=== PATIENT | female | born 1955 | race Caucasian/White ===

== ENCOUNTER → 2017-12-25 08:15 | Outpatient (CLI) | payer MEDICARE, SELFPAY ==
[2017-12-25 12:20] LABS: Absolute Lymphocyte Count 1.13 X10^3/ul (0.83-4.51); Absolute Neutrophil Count 2.7 X10^3/uL (2.0-7.7); Basophil# 0.01 X10^3/uL; Basophil% 0.2 % (0-1); Eosinophil# 0.28 X10^3/uL; Eosinophils% 6.1 % (0-5); Hematocrit 37.2 % (37-47); Hemoglobin 11.5 g/dl (12.0-15.0); Lymphocyte # 1.13 X10^3/ul (4.0); Lymphocyte % 24.6 % (19-41); Mean Corp Hgb Conc 30.9 g/gl (32-36); Mean Corpuscular Hgb 26.9 pg (27.0-32.0); Mean Corpuscular Volume 86.9 fL (81-99); Mean Platelet Vol. 9.5 fl (6.2-12.0); Monocyte# 0.46 X10^3/uL; Neutrophil % 58.9 % (47-70); Platelet Count 293 K/mm3 (150-450); RBC Distribution Width CV 16.2 % (11.6-14.6); RBC Distribution Width SD 51.4 fl (35.1-43.9); Red Blood Count 4.28 M/mm3 (4.2-5.4); White Blood Count 4.6 K/mm3 (4.4-11.0)
[2017-12-25 12:22] LABS: POSITIVE COUNT NO; POSITIVE DIFFERENTIAL NO; POSITIVE MORPHOLOGY NO
[2017-12-25 12:42] LABS: Hemoglobin A1c 6.2 % (4.2-6.3)
[2017-12-25 12:46] LABS: Anion Gap 7 (5-15); BUN 20 mg/dL (7-18); BUN/Creat Ratio 24.1 RATIO (10-20); Calcium,Total 9.2 mg/dL (8.5-10.1); Chloride 100 mmol/L (98-107); Creatinine, Serum 0.83 mg/dL (0.55-1.02); EST Glomerular Filtration Rate 74 mL/min (>60); Est Glom Filt Rate - Afr Amer 89 mL/min (>60); Glucose 99 mg/dL (74-106); Sodium Level 136 mmol/L (136-145); Thyroid Stim Hormone (TSH) 2.45 uIU/mL (0.358-3.74)
== END ==
PROVIDERS: Family Provider Family Medicine; PCP Family Medicine; Visit Provider Family Medicine
DX: I10 Essential (primary) hypertension (principal); R73.01 Impaired fasting glucose; F41.9 Anxiety disorder, unspecified
CPT/HCPCS: 36415; 80048; 83036; 84443; 85025

== ENCOUNTER → 2018-03-19 08:54 | Outpatient (CLI) | payer MEDICARE, SELFPAY ==
--- NOTE | 2018-03-19 08:58 | RAD_ITS ---
STUDY: X-RAY - RIGHT FOOT CLINICAL: Female, 62 years old. Pain across tarsal bones while doing physical therapy. TECHNIQUE: 3 view(s) of the foot. COMPARISON: None. FINDINGS: Normal talus, calcaneus, and tarsal bones. Normal visualized subtalar, talonavicular, calcaneocuboid, and tarsotarsal articulations. There are degenerative arthroses of the first through third tarsometatarsal articulations, with anterior periarticular osteophytes on the lateral view, likely at the first tarsometatarsal joint. There is chronic lateral erosive change in the heads of the first and second metatarsals. There is old healed fracture deformity at the neck of the third metatarsal. Normal fourth and fifth metatarsals. There is degenerative arthrosis of the first metatarsophalangeal joint with a 55 degree hallux valgus deformity. There are periarticular degenerative ossicles or spurring of the tibial and fibular sesamoid bones. Normal interphalangeal joint of the great toe. Normal phalanges of the great toe. There is chronic anterior dislocation and slight lateral subluxation of the second metatarsal phalangeal joint. Normal third fifth metatarsophalangeal joints. Mild varus deviation of the third through fifth toes. Otherwise, normal interphalangeal joints and phalanges of the lesser toes. There is mild soft tissue swelling at the ball of the foot. There is no demonstrated acute fracture. RAD/Foot min 3 Views IMPRESSION: 1. 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 There is an anterior dislocation at the second metatarsophalangeal joint, likely chronic, as well as a significant hallux valgus deformity. 2. Mild soft tissue swelling at the ball of foot. No acute osseous destructive lesion or fracture. Electronically Signed: Easton Hall MD at 9:31 EDT , Service support ,
== END ==
PROVIDERS: Family Provider Family Medicine; PCP Family Medicine; Visit Provider Family Medicine
DX: M79.671 Pain in right foot (principal)
CPT/HCPCS: 73630

== ENCOUNTER → 2018-03-19 09:07 | Outpatient (CLI) | payer MEDICARE, SELFPAY | PROVIDERS: Family Provider Family Medicine; PCP Family Medicine; Visit Provider Family Medicine | DX: M79.671 Pain in right foot (principal); R30.0 Dysuria | CPT/HCPCS: 73630; 87086; 87088 ==

== ENCOUNTER → 2018-03-28 08:55 | Outpatient (CLI) | payer MEDICARE, SELFPAY ==
--- NOTE | 2018-03-28 08:58 | BI_ITS ---
MAMMOGRAPHY - BILATERAL DIAGNOSTIC REASON FOR EXAM: Female, 62 years old. Left breast lump. PERTINENT HISTORY: Personal history of breast cancer. History of prior left lumpectomy with radiation treatment and maxillary node dissection. TECHNIQUE: Digital bilateral breast dora (3D mammographic acquisition) in the CC and MLO projections. 2-D mediolateral oblique (MLO) and craniocaudad (CC) views of both breasts were obtained. CAD: Full Field Digital Mammography with Computer Added Detection was performed. COMPARISON: Comparison is made with prior examination dated March 27, 2017 and August 04, 2016. FINDINGS: Breast Composition: There are scattered areas of fibroglandular density. There are no dominant masses or suspicious calcifications. Focal architectural distortion is seen in the deep medial inferior aspect of the left breast corresponding to the palpable abnormality. Correlation with ultrasound is recommended. Status post left lumpectomy. No other significant abnormalities are identified. BI/DIAG MAMM W/CAD, BILAT IMPRESSION: Focal irregular architecture distortion in the deep inferior medial portion of the left breast corresponding to the palpable abnormality. Correlation with ultrasound is recommended. ASSESSMENT CATEGORY: BIRADS Category 0: Incomplete. Need additional imaging evaluation. A letter regarding these results will be sent to the patient by the facility within 30 days. Approximately 10% of breast cancers are not detected by mammography. A normal mammogram should not delay biopsy of a clinically suspicious abnormality. Electronically Signed: Rancho Lyles MD at 13:00 EDT Tel [phone], Service support ,
--- NOTE | 2018-03-28 08:59 | US_ITS ---
STUDY: ULTRASOUND BREAST - LEFT REASON FOR EXAM: Female, 62 years old. Pain in the left breast. TECHNIQUE: Axial and longitudinal images of the LEFT breast were performed with a high resolution ultrasound transducer. COMPARISON: Comparison is made with prior mammogram done earlier today and prior ultrasound of the left breast dated March 27, 2017. FINDINGS: LEFT Breast: The inferior medial aspect of the left breast was examined by ultrasound. There is a 6 mm x 15 mm x 5 mm well-defined slightly echogenic nodule at the 8:00 position in the breast at 10 cm from the nipple. This most likely represents postoperative fatty change. The previously seen hypoechoic nodule on prior ultrasound is not seen at this time. US/Breast Limited Unilateral IMPRESSION: 6 mm x 30 mm x 5 mm echogenic nodule at the 8:00 position breast at 10 cm from the nipple. This most likely represents post operative change. A repeat sonogram in 4 months is recommended. ASSESSMENT CATEGORY: BIRADS Category 3: Probably Benign - Short-Interval Follow-up Suggested. A letter regarding these results will be sent to the patient by the facility within 30 days. Electronically Signed: Rancho Lyles MD at 13:46 EDT Tel [phone], Service support ,
== END ==
PROVIDERS: Family Provider Family Medicine; PCP Family Medicine; Visit Provider Nurse Practitioner
DX: C50.412 Malignant neoplasm of upper-outer quadrant of left female breast (principal); Z17.0 Estrogen receptor positive status [ER+]; Z12.31 Encounter for screening mammogram for malignant neoplasm of breast
CPT/HCPCS: 76642; 77062; 77066; G0279

== ENCOUNTER → 2018-04-02 11:39 | Outpatient (CLI) | payer MEDICARE, SELFPAY ==
--- NOTE | 2018-04-02 | MASS_PTH ---
PATIENT: CR YANG LOC: [facility] #:[id number] AGE/SX: 69/F ROOM: RE04/02/[address]: Dr. Jarod Chavez MD : 1955 BED: DIS: SPEC #: [id number] RECD: 04/02/18 11:29 STATUS: ANGEL TESSA #: [id number] ANGELA: 04/02/18 00:[address]: Jarod Chavez DEPT: SURGICAL PATHOLOGY RECD BY: Jeremy Dixon ENTERED: 04/02/18 12:44 SP TYPE: Mass OTHR DR: Dr. Brandt Yang MD Tissues: Left breast, NOS Procedures: Surgery Specimen Level IV HEADER OPERATION: Excisional left breast biopsy PRE-OP DIAGNOSIS: Left breast mass TISSUE SUBMITTED: Left breast mass ISCHMEIC TIME: 3 seconds FIXATION TIME: 7.5 hours MICROSCOPIC DIAGNOSIS Left breast mass, excisional biopsy: A piece of adipose tissue with fat necrosis and fibrosis. Negative for malignancy. Breast tissue is not identified in the submitted specimen. GIO:rissa 04/03/18 COMMENT Please make reference to previous specimen ([id number]) left breast, lumpectomy with diagnosis of invasive ductal carcinoma. Correlation with clinical, radiologic findings and appropriate follow up are necessary. MICROSCOPIC DESCRIPTION Slides are reviewed. GROSS DESCRIPTION Received in fixative is one container labeled with the patient's name and designated left breast biopsy. The specimen consists of a piece of spencer-yellow fibroadipose tissue measuring 1.7 x 1.2 x 0.8 cm. The specimen is inked, serially sectioned and submitted entirely in one cassette. / GIO:rissa 04/02/18 TC:5 CPT: 25252
== END ==
PROVIDERS: Family Provider Family Medicine; PCP Family Medicine; Visit Provider Surgery
DX: N64.1 Fat necrosis of breast (principal); N60.32 Fibrosclerosis of left breast
CPT/HCPCS: 88305

== ENCOUNTER 2018-05-07 08:46 | Day surgery (SDC) | payer MEDICARE, SELFPAY ==
[2018-05-07 09:06] VITALS: BP 156/88; PULSE 73; RESP 16; TEMP 36.4; O2SAT 95; BMI 40.4
--- NOTE | 2018-05-07 10:55 | BRBX_PTH ---
PATIENT: CR YANG LOC: [facility] [place] U#:[id number] AGE/SX: 62/F ROOM: RE05/07/[address]: Dr. Jarod Chavez MD : 1955 BED: DIS: 05/07/2018 SPEC #: [id number] RECD: 05/08/18 07:16 STATUS: ANGEL TESSA #: [id number] ANGELA: 05/07/18 10:[address]: Jarod Chavez DEPT: SURGICAL PATHOLOGY RECD BY: John Rocha ENTERED: 05/08/18 11:02 SP TYPE: BREAST BX OTHR DR: Dr. Brandt Yang MD Tissues: Left breast, NOS Procedures: Surgery Specimen Level IV HEADER OPERATION: Left breast mass excisional biopsy PRE-OP DIAGNOSIS: Mass of lower inner quadrant of left breast TISSUE SUBMITTED: Left breast excisional biopsy and skin-short suture ? superior: long suture - lateral MICROSCOPIC DIAGNOSIS Left breast mass, lower inner quadrant, excisional biopsy: Adipose tissue with extensive fat necrosis. Skin with dermal fibrosis, fat necrosis and foreign body giant cell reaction consistent with previous biopsy site. Negative for malignancy. SJ:medardo 05/10/18 COMMENT Please make reference to previous specimen [id number] left breast mass, excisional biopsy with diagnosis of piece of adipose tissue with fat necrosis and fibrosis, negative for malignancy. Please make reference to previous specimen [id number] left breast, lumpectomy, diagnosis of invasive ductal carcinoma. This case was discussed with Dr. Chavez on 05/10/2018. MICROSCOPIC DESCRIPTION Slides are reviewed. GROSS DESCRIPTION Received in fixative is one container labeled with the patient's name and designated left breast excision biopsy, skin short suture superior, long suture lateral. The specimen consists of a piece of spencer-yellow fibroadipose tissue measuring 3.5 x 3 x 1.3 cm. A piece of skin is also noted separately measuring 2 x 0.4 cm and up to 0.5 cm in thickness. The skin piece is longitudinally bisected. The specimen is inked as follows: superior margin? blue, inferior margin? green, anterior margin? yellow, posterior margin ? black, medial margin ? red, lateral margin ? orange. The specimen is serially section and reveals focal spencer-yellowish solid area. No obvious mass lesion is identified. The entire specimen is submitted in 6 cassettes as follows: 1 ? skin piece bisected, 2- perpendicular medial and lateral margins, 3-6 - rest of the specimen. Section will be submitted after infusion cycle. GIO:medardo 05/07/18 TC:5 CPT:30805
[2018-05-07] MEDS: Cefazolin 2 GM in 0.9% Normal Saline 100 ML IV (11:10)
--- NOTE | 2018-05-07 11:28 | PCM.OPRPT ---
Problem List (1) Mass of lower inner quadrant of left breast Status: Acute Report of Operation Date of Procedure: 05/07/18 Pre-Operative Diagnosis: Palpable mass in the left breast lower inner quadrant Post-Operative Diagnosis: Same Surgery/Procedure Performed:: Left breast excisional biopsy of mass Specimen's removed: Left breast mass and overlying previous scar tissue. Description of Procedure: The patient's left breast was prepped and draped in the usual sterile fashion and MAC anesthesia was induced. Next Marcaine was injected around the mass and former incision. Her previous incision site was excised with an elliptical incision. Next flaps were created superiorly and the palpable mass was located and sharply dissected free with surrounding tissue. This was marked with a short suture superiorly and a long suture laterally. Next the cavity was irrigated and hemostasis was obtained with electrocautery. The skin was then closed with interrupted 3-0 Vicryl sutures as well as Dermabond. The patient tolerated the procedure well and was brought to PACU in stable condition.
--- NOTE | 2018-05-07 11:31 | PCM.DC.BS ---
Discharge Diet: No Restrictions Discharge Activity: May Not Drive - for 2-3 days or while taking narcotic pain meds. May shower in (days): 1 Lifting Restrictions: 10 pounds for 1 week. Call your doctor if your incision/area has: Continuous Slow Oozing, Sudden Increased Bleeding Call your doctor if you observe: Fever of 101 or Higher Suture Line Care: Avoid Pulling/Pushing, Avoid Pinching/Bending Cleanse incision/area with: Soap & Water Allergies/Adverse Reactions: Allergies codeine Adverse Reaction (Verified 05/01/18 14:09) N/V AND MAKES HER FEEL REALLY SICK hydrocodone [From Vicodin] Adverse Reaction (Verified 05/01/18 14:09) N/V AND MAKES HER FEEL REALLY SICK Medications to take at Discharge Cyclobenzaprine [Flexeril] 10 mg PO TID PRN PRN 05/18/17 Lisinopril/Hydrochlorothiazide [Zestoretic 10/12.5 Tablet] 1 tab PO DAILY 05/22/17 Anastrozole [Arimidex] 1 mg PO DAILY 07/20/17 Aspirin [Aspirin, Baby] 81 mg PO DAILY@0800 07/20/17 Cholecalciferol (Vitamin D3) [Vitamin D3] 5,000 unit PO DAILY 07/20/17 Multivit-Min/FA/Lycopen/Lutein [Centrum Silver Tablet] 1 ea PO DAILY 07/20/17 Omeprazole [Omeprazole] 20 mg PO PRN PRN 05/01/18 Primary Care Physician: Brandt Yang MD [Primary Care Provider] - Please Follow Up With: Jarod Chavez MD When: Please call to schedule 2 week follow up appointment. [phone]
[2018-05-07 11:33] VITALS: BP 115/62; BP 156/88; PULSE 87; RESP 16; TEMP 36.9; O2SAT 100
[2018-05-07 11:38] VITALS: BP 135/70; BP 156/88; PULSE 81; RESP 18; O2SAT 93
[2018-05-07 11:43] VITALS: BP 122/75; BP 156/88; PULSE 83; RESP 18; O2SAT 93
[2018-05-07 11:48] VITALS: BP 147/82; BP 156/88; PULSE 83; RESP 16; TEMP 36.9; O2SAT 93
[2018-05-07 12:26] VITALS: BP 156/88
== END 2018-05-07 12:26 | disposition home or self-care (01) ==
LOC: SDC 08:46 → AC 08:47
PROVIDERS: Family Provider Family Medicine; PCP Family Medicine; Visit Provider Surgery
PROC: (CPT 19120; principal; 2018-05-07 10:40)
DX: N60.32 Fibrosclerosis of left breast (principal); N64.1 Fat necrosis of breast; C50.412 Malignant neoplasm of upper-outer quadrant of left female breast; I10 Essential (primary) hypertension; K21.9 Gastro-esophageal reflux disease without esophagitis; Z79.82 Long term (current) use of aspirin; Z79.899 Other long term (current) drug therapy
CPT/HCPCS: 19120; 88305; J7120; J2405

== ENCOUNTER → 2018-07-18 09:30 | Outpatient (CLI) | payer MEDICARE, SELFPAY | PROVIDERS: Family Provider Family Medicine; PCP Family Medicine; Visit Provider Surgery | DX: C50.412 Malignant neoplasm of upper-outer quadrant of left female breast (principal); Z17.0 Estrogen receptor positive status [ER+]; N63.0 Unspecified lump in unspecified breast | CPT/HCPCS: 76642 ==

== ENCOUNTER → 2019-03-29 | Outpatient (CLI) | payer MEDICARE, SELFPAY ==
--- NOTE | 2019-03-29 09:46 | BI_ITS ---
MAMMOGRAPHY - BILATERAL SCREENING REASON FOR EXAM: Female, 63 years old. Routine annual screening examination. PERTINENT HISTORY: Personal history of breast cancer. Prior left lumpectomy. TECHNIQUE: Digital bilateral breast dora (3D mammographic acquisition) in the CC and MLO projections. 2-D mediolateral oblique (MLO) and craniocaudad (CC) views of both breasts were obtained. CAD: Full Field Digital Mammography with Computer Added Detection was performed. COMPARISON: Comparison is made with prior study dated March 28, 2018 and March 27, 2017. FINDINGS: Breast Composition: There are scattered areas of fibroglandular density. There are no dominant masses or suspicious calcifications. Stable architectural distortion in the upper outer aspect of the left breast. Surgical clips are seen in the left axillary region. Stable benign-appearing left axillary lymph node. No other significant abnormalities are identified. There has been no significant change since the prior study. BI/SCREENING MAMM (CAD), BILAT IMPRESSION: Stable bilateral screening mammogram. Yearly follow-up mammogram recommended. (A) ASSESSMENT CATEGORY: BIRADS Category 2: Benign. A letter regarding these results will be sent to the patient by the facility within 30 days. Approximately 10% of breast cancers are not detected by mammography. A normal mammogram should not delay biopsy of a clinically suspicious abnormality. [id number] Electronically Signed: Rancho Lyles, at 13:24 EDT , Service support ,
== END | disposition home or self-care (01) ==
LOC: OPBI 09:44
PROVIDERS: Family Provider Family Medicine; PCP Family Medicine; Referring Provider Nurse Practitioner; Visit Provider Nurse Practitioner
DX: Z12.31 Encounter for screening mammogram for malignant neoplasm of breast (principal); C77.3 Secondary and unspecified malignant neoplasm of axilla and upper limb lymph nodes
CPT/HCPCS: 77063; 77067

== ENCOUNTER → 2019-04-09 | Outpatient (CLI) | payer MEDICARE, SELFPAY ==
--- NOTE | 2019-04-09 13:51 | BD_ITS ---
STUDY: DUAL ENERGY X-RAY ABSORPTIOMETRY / DXA REASON FOR EXAM: Female, 63 years old. The patient is postmenopausal. Loss of height. TECHNIQUE: Bone Mineral Density (BMD) measurements of both forearms were obtained. The patient is status post bilateral hip replacement and lumbar surgeries. COMPARISON: None. FINDINGS: Right Forearm: g/cm2 (0.932) / T-score (0.5) / Z-score (1.9) Left Forearm: g/cm2 (0.934) / T-score (0.5) / Z-score (1.9) BD/Dexa Bone Density/Append Skel IMPRESSION: The patient is considered normal as outlined below according to [employer] Organization (WHO) criteria with a low fracture risk. Reference Information: The T-score is the number of standard deviations above or below the standard which is normal for young adults at their peak bone mineral density. The World Health Organization (WHO) interprets the T-scores as follows: Above -1 Normal bone density Between -1 and -2.5 Osteopenia Equal to / or below -2.5 Osteoporosis As a practical clinical guideline, osteopenia may be graded as follows: Mild -1 through -1.5 Moderate -1.6 through -2.0 Severe -2.1 through -2.4 The Z-score is the number of standard deviations above or below age-matched controls. A Z-score of less than -1.5 would be considered abnormal. References: 1. NIH Osteoporosis and Related Bone Diseases http://www.osteo.org 2. International Society for Clinical Densitometry http://www.iscd.org 3. National Osteoporosis Foundation http://www.nof.org Electronically Signed: Rancho Lyles, at 15:50 EDT , Service support ,
== END | disposition home or self-care (01) ==
LOC: OPBD 13:20
PROVIDERS: Family Provider Family Medicine; PCP Family Medicine; Referring Provider Family Medicine; Visit Provider Family Medicine
DX: Z78.0 Asymptomatic menopausal state (principal)
CPT/HCPCS: 77080; 77081

== ENCOUNTER 2019-05-22 06:30 | Day surgery (SDC) | payer MEDICARE, SELFPAY ==
[2019-05-22 06:46] VITALS: BP 145/83; PULSE 85; RESP 18; TEMP 36.4; O2SAT 96; BMI 41.7
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
[2019-05-22 08:21] VITALS: BP 111/65; BP 145/83; PULSE 76; RESP 18; TEMP 36.9; O2SAT 100
[2019-05-22 08:25] VITALS: BP 123/69; BP 145/83; PULSE 76; RESP 18; O2SAT 100
[2019-05-22 08:30] VITALS: BP 123/73; BP 145/83; PULSE 78; RESP 18; O2SAT 100
[2019-05-22 08:36] VITALS: BP 112/66; BP 145/83; PULSE 72; RESP 18; TEMP 36.8; O2SAT 99
--- NOTE | 2019-05-22 08:39 | OP.ENDO_ITS ---
05/22/2019 Brandt Yang Re : Colonoscopy procedure for Remedios Lee Dear Celia This procedure was performed on Wednesday, May 22, 2019. My impressions and recommendations are as follows: Impressions : - Hemorrhoids found on perianal exam. - External and internal hemorrhoids. - Diverticulosis in the sigmoid colon and in the descending colon. - The examination was otherwise normal. - No specimens collected. Recommendations : - Discharge patient to home. - Continue present medications. - Repeat colonoscopy in 10 years for screening purposes. My findings are described in the full procedure note, which is enclosed. If I can be of further assistance, please feel free to contact me at Doctor phone number(s): , Work: . Sincerely, MD Eliana Adams MD 05/22/2019 8:39:42 AM This report has been signed electronically.
[2019-05-22 08:45] VITALS: BP 145/83
== END 2019-05-22 08:54 | disposition home or self-care (01) ==
LOC: EN 06:30 → AC 06:33
PROVIDERS: Family Provider Family Medicine; PCP Family Medicine; Referring Provider Family Medicine; Visit Provider Surgery
PROC: 0DJD8ZZ Inspection of Lower Intestinal Tract, Via Natural or Artificial Opening Endoscopic (ICD-10-PCS; CPT 45378; principal; 2019-05-22 07:55)
DX: Z12.11 Encounter for screening for malignant neoplasm of colon (principal); Z86.010 Personal history of colon polyps; K64.1 Second degree hemorrhoids; K64.4 Residual hemorrhoidal skin tags; K57.30 Diverticulosis of large intestine without perforation or abscess without bleeding; I10 Essential (primary) hypertension; K21.9 Gastro-esophageal reflux disease without esophagitis; M19.90 Unspecified osteoarthritis, unspecified site; F32.9 Major depressive disorder, single episode, unspecified; C50.412 Malignant neoplasm of upper-outer quadrant of left female breast; Z78.0 Asymptomatic menopausal state; Z79.899 Other long term (current) drug therapy
CPT/HCPCS: G0105; J7120; J2405

== ENCOUNTER → 2019-07-17 | Outpatient (CLI) | payer MEDICARE, SELFPAY ==
[2019-07-17 12:37] LABS: Absolute Lymphocyte Count 0.97 X10^3/uL (0.83-4.51); Absolute Neutrophil Count 2.4 X10^3/uL (2.0-7.7); Basophil# 0.02 X10^3/uL; Basophil% 0.5 % (0-1); Eosinophil# 0.28 X10^3/uL; Eosinophils% 7.1 % (0-5); Hematocrit 35.5 % (37-47); Hemoglobin 10.9 g/dL (12.0-15.0); Lymphocyte # 0.97 X10^3/ul (4.0); Lymphocyte % 24.4 % (19-41); Mean Corp Hgb Conc 30.7 g/dL (32-36); Mean Corpuscular Hgb 26.8 pg (27.0-32.0); Mean Corpuscular Volume 87.4 fL (81-99); Mean Platelet Vol. 9.9 fl (6.2-12.0); Monocyte# 0.33 X10^3/uL; Monocyte% 8.3 % (0-10); NRBC Flagged by Analyzer 0 % (0-5); Neutrophil # 2.36 X10^3/uL (2.7-7.7); Neutrophil % 59.4 % (47-70); Platelet Count 227 K/mm3 (150-450); RBC Distribution Width CV 15.5 % (11.6-14.6); RBC Distribution Width SD 49.3 fl (35.1-43.9); Red Blood Count 4.06 M/mm3 (4.2-5.4)
[2019-07-17 13:23] LABS: ALB/GLOB Ratio 0.8 RATIO (0.9-2.4); AST(SGOT) 18 U/L (15-37); Alanine Aminotransfer ALT/SGPT 15 U/L (13-56); Albumin, Serum 3.5 g/dL (3.2-5.0); Alkaline Phosphatase 87 U/L (45-117); Anion Gap 4 (5-15); BUN 14 mg/dL (7-18); BUN/Creat Ratio 16.7 RATIO (10-20); Calcium,Total 8.9 mg/dL (8.5-10.1); Chloride 104 mmol/L (98-107); Creatinine, Serum 0.84 mg/dL (0.55-1.02); EST Glomerular Filtration Rate 72 mL/min (>60); Est Glom Filt Rate - Afr Amer 87 mL/min (>60); Globulin 4.3 g/dL (2.2-4.2); Glucose 92 mg/dL (74-106); Potassium 3.8 mmol/L (3.5-5.1); Protein, Total 7.8 g/dL (6.4-8.2); Sodium Level 139 mmol/L (136-145); T4 Free Direct 1.09 ng/dL (0.76-1.46); Thyroid Stim Hormone (TSH) 1.14 uIU/mL (0.358-3.74)
[2019-07-18 09:39] LABS: Ferritin 21 ng/mL (8-252); Iron 47 ug/dL (50-170)
== END | disposition home or self-care (01) ==
PROVIDERS: Family Provider Family Medicine; PCP Family Medicine; Visit Provider Family Medicine
DX: D64.9 Anemia, unspecified (principal); I10 Essential (primary) hypertension; R73.01 Impaired fasting glucose; F41.9 Anxiety disorder, unspecified
CPT/HCPCS: 36415; 80053; 82728; 83540; 84439; 84443; 85025

== ENCOUNTER → 2019-07-19 13:37 | Outpatient (CLI) | payer MEDICARE, SELFPAY ==
[2019-07-19 13:45] LABS: Bacteria 0 SEEN /hpf (None Seen); Mucous, Urine 0 SEEN /hpf (<or=2+); Red Blood Cells-Urine 0 SEEN /hpf (0-5)
[2019-07-19 15:44] LABS: Color, Urine Yellow (Yellow); Glucose, Dipstick Normal (Normal); Ketone-Dipstick Negative (Negative); Leukocyte Esterase-Dipstick 25 /ul (Negative); Nitrite-Dipstick Negative (Negative); Occult Blood-Urine Negative /ul (Negative); Protein-Dipstick Negative (Negative); Urine Bilirubin Dipstick Negative (Negative); Urine Clarity Clear (Clear); Urine Urobilinogen Normal (Normal); Urine pH 6.5 (5.0 - 8.0)
[2019-07-19 16:03] LABS: Squamous Epithelial Cells - UA 0-5 SEEN /hpf (5-10); White Blood Cells 0-5 SEEN /hpf (0-5)
== END ==
PROVIDERS: Family Provider Family Medicine; PCP Family Medicine; Visit Provider Family Medicine
DX: D50.9 Iron deficiency anemia, unspecified (principal)
CPT/HCPCS: 81001

== ENCOUNTER 2019-07-29 09:37 | Day surgery (SDC) | payer MEDICARE, OTHER, SELFPAY ==
[2019-07-23 13:23] VITALS: BMI 38.6
--- NOTE | 2019-07-29 10:22 | PCM.HP.BLA ---
History and Physical Date of Admission: 07/29/19 Date of Service: 07/23/19 MR#: [id number] Acct: [id number] Name: CR YANG Rep #: [id number] : 1955 Provider: Eliana Hancock MD Age/Sex: 63/F Location: [facility] Status: Signed Intake Vital Signs 07/23/19 Height 5 ft 4 in 07/23/19 Weight: 225 lb 07/23/19 Body Mass Index (BMI) 38.6 07/23/19 Blood Pressure 145/81 H 07/23/19 Blood Pressure Location Rt brachial 07/23/19 Blood Pressure Position Sitting 07/23/19 Respiratory Rate 16 07/23/19 Pulse Rate 65 07/23/19 Pulse Source Monitor 07/23/19 Temperature 98.2 F 07/23/19 Temperature Source Oral 07/23/19 Pulse Ox 96 07/23/19 Oxygen Delivery Method room air 07/23/19 Body Mass Index (BMI) 41.7 Intake Visit Reasons: EGD DX- 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 Is patient in pain?: No Allergies codeine Adverse Reaction (Verified 07/23/19 13:24) N/V AND MAKES HER FEEL REALLY SICK hydrocodone [From Vicodin] Adverse Reaction (Verified 07/23/19 13:24) N/V AND MAKES HER FEEL REALLY SICK Medications cycloBENZAPRine HCl [Flexeril] 10 mg PO TID PRN PRN 05/18/17 [History Confirmed 07/23/19] Lisinopril/Hydrochlorothiazide [Zestoretic 08/24.5 Tablet] 1 tab PO DAILY 05/22/17 [History Confirmed 07/23/19] Anastrozole [Arimidex] 1 mg PO DAILY 07/20/17 [History Confirmed 07/23/19] Multivit-Min/FA/Lycopen/Lutein [Centrum Silver Tablet] 1 ea PO DAILY 07/20/17 [History Confirmed 07/23/19] Omeprazole 20 mg PO PRN PRN 05/01/18 [History Confirmed 07/23/19] ferrous sulfate 325 mg (65 mg iron) tablet 325 mg PO DAILY 07/23/19 [History Confirmed 07/23/19] [facility] Medical History (Updated 07/23/19 @ 13:52 by Eliana Hancock MD) Scleroderma (Acute) Spinal stenosis (Acute) Osteoarthritis (Acute) GERD (gastroesophageal reflux disease) (Acute) Anxiety (Acute) Anemia (Acute) Back pain (Acute) HTN (hypertension) (Chronic) Breast cancer of upper-outer quadrant of left female breast (Acute) Surgical History (Updated 07/23/19 @ 13:21 by Karen Booker) History of hip replacement (Acute) Hx of hysterectomy (Acute) History of carpal tunnel surgery (Acute) Hx of surgical amputation of finger (Acute) Hx of tonsillectomy (Acute) Hx of colonoscopy (Acute) History of breast lump/mass excision (Acute) Previous back surgery (Acute) S/P lumpectomy, left breast (Acute) Family History (Updated 07/23/19 @ 13:22 by Karen Booker) Mother Diabetes Kidney disease Father CVA (cerebral vascular accident) Hypertension Sister Thyroid disorder Social History (Updated 07/23/19 @ 14:04 by Eliana Hancock MD) Smoking Status: Never smoker second hand exposure: No alcohol intake: never substance use type: does not use caffeine: Yes HPI HPI HPI: CR YANG, is a 63 F who presents to the office today for HPI HPI Surgical H&P: Yes HPI: CR YANG, is a 63 F who presents to the office today for EGD due to anemia. Patient recently had colonoscopy done May 2019 which was negative. In 2017 she did have a tubulovillous adenoma and tubular adenoma removed. Prior to that her colonoscopy was 10 years before that. Patient has been on omeprazole for years 20 mg p.o. daily however she only takes it when she has a problem she is concerned about her bone density even of her last DEXA scan was okay. Patient states she has reflux symptoms every other day. Patient states she has bowel movement daily but denies any blood. Recently her stools have been black once she started taking the iron. Patient's hemoglobin November 2016 was 13 however mid 2016 she dropped to 11.1 in 2018 she is 11.5 currently she is 10.9. Exam Const General: cooperative, comfortable, no acute distress GI Inspection: non-distended Palpation: soft, nontender Assessment & Plan Problems 1. GERD (gastroesophageal reflux disease) K21.9 2. Anemia D64.9 3. Tubulovillous adenoma of colon D12.6 removed in 2017, 2019 neg Plan We will have patient repeat her colonoscopy in 4 years not 10 years due to history of tubulovillous adenoma in 2017. Did discuss with patient. I have discussed the above with the patient. I have offered the patient EGD for evaluation. I have explained the risks/benefits of the procedure and described the procedure. I have discussed the risks with the patient, including but not limited to: infection, bleeding, perforation of the GI tract requiring emergency surgery, inability to complete the procedure, injury to any internal organs, complications of anesthesia, etc. - the patient understands and agrees to proceed. I have answered all the patient's questions to the patient's satisfaction and the patient has no further questions. Eliana Hancock M.D. Pager: [phone] [facility] [address] [place] [address], [address] [place] [address] Office: [phone] Plan Detail Follow Up We will schedule EGD Coding Level of Care Code Off vis,est,level 3 Diagnoses GERD (gastroesophageal reflux disease) K21.9 Anemia D64.9 Tubulovillous adenoma of colon D12.6 07/23/19 1404 <Electronically signed by Eliana Hancock MD> Date Eliana Hancock MD I have re-examined the patient. There are no clinical changes since date of exam.
[2019-07-29 10:33] VITALS: BP 152/70; PULSE 62; RESP 16; TEMP 37.4; O2SAT 98; BMI 39.2
[2019-07-29] MEDS: Lactated Ringers 1,000 ML 100 ML IV (10:51)
--- NOTE | 2019-07-29 11:00 | EGD_PTH ---
PATIENT: CR YANG LOC: EN U#:[id number] AGE/SX: 63/F ROOM: RE07/29/[address]: Dr. Eliana Hancock MD : 1955 BED: DIS: 07/29/2019 SPEC #: [id number] RECD: 07/29/19 11:35 STATUS: ANGEL TESSA #: [id number] ANGELA: 07/29/19 11:[address]: Eliana Hancock DEPT: SURGICAL PATHOLOGY RECD BY: John Rocha ENTERED: 07/29/19 12:06 SP TYPE: EGD BIOPSY OT DR: Dr. Brandt Yang MD Tissues: Gastric mucous membrane Procedures: Surgery Specimen Level IV HEADER OPERATION: EGD ([facility] [place]) PRE-OP DIAGNOSIS: Anemia TISSUE SUBMITTED: Antrum biopsy for histo and H. pylori MICROSCOPIC DIAGNOSIS Gastric antrum, biopsy: Mild chronic gastritis. See comment. AM:rissa 9/17/19 COMMENT The results of immunohistochemistry for Helicobacter pylori will be reported separately ([id number]). MICROSCOPIC DESCRIPTION Slides are reviewed. GROSS DESCRIPTION Received in fixative is one container labeled with the patient's name and designated antral biopsy for H. pylori and path. The specimen consists of one irregular fragment of light spencer soft tissue that measures 0.3 x 0.3 x 0.1 cm. The specimen is totally submitted in one cassette. / SJ:rg 07/29/19 TC:3 CPT: 07057
--- NOTE | 2019-07-29 11:00 | IMM_PTH ---
PATIENT: CR YANG LOC: [facility] U#:[id number] AGE/SX: 63/F ROOM: RE07/29/[address]: Dr. Eliana Hancock MD : 1955 BED: DIS: 07/29/2019 SPEC #: [id number] RECD: 07/29/19 12:31 STATUS: ANGEL RENixon #: [id number] ANGELA: 07/29/19 11:[address]: Eliana Hancock DEPT: IMMUNOHISTOCHEMISTRY RECD BY: Delilah Shea ENTERED: 07/29/19 12:31 SP TYPE: IMMUNO OTHR DR: Dr. Brandt Yang MD Tissues: Stomach, NOS Procedures: H Pylori (initial) PHYSICIAN & INSTITUTION [place] [id number] SPECIMEN INFORMATION: Tissue Source: Antrum biopsy Clinical Info: Anemia Specimen Number: [id number] CPT code: 41511 METHODOLOGY: Deparaffinized sections of prefer/formalin-fixed tissue or PAP/DQ stained slides are incubated with monoclonal/polyclonal antibodies/oligonucleotide probes. Localization is made via biotin free immunoperoxidase method. Appropriate controls are performed and reacted as expected. Results on target cell population are indicated in the following table: RESULTS: ANTIBODY / CLONE RESULT H Pylori (polyclonal) negative These tests were developed and their performance characteristics determined by [facility]. They may not have been cleared or approved by the U.S. Food and Drug Administration. The FDA has determined that such clearance or approval is not necessary. INTERPRETATION: Antrum biopsy: Negative for Helicobacter pylori organisms. AM:rissa 07/30/19
[2019-07-29 11:24] VITALS: BP 141/72; BP 152/70; PULSE 78; RESP 18; TEMP 35.9; O2SAT 97
[2019-07-29 11:30] VITALS: BP 136/66; BP 152/70; PULSE 71; RESP 16; O2SAT 95
[2019-07-29 11:35] VITALS: BP 138/68; BP 152/70; PULSE 61; RESP 16; O2SAT 96
[2019-07-29 11:40] VITALS: BP 143/87; BP 152/70; PULSE 58; RESP 16; TEMP 36.3; O2SAT 97
[2019-07-29 11:52] VITALS: BP 152/70
--- NOTE | 2019-07-30 10:28 | OP.ENDO_ITS ---
07/30/2019 Brandt Yang Re : Upper GI endoscopy procedure for Remedios Lee Dear Celia This procedure was performed on Monday, July 29, 2019. My impressions and recommendations are as follows: Impressions : - Z-line regular, 35 cm from the incisors. - Erythematous mucosa in the antrum. Biopsied. - Normal examined duodenum. - Small hiatal hernia. Recommendations : - Await pathology results. - Discharge patient to home. - Resume previous diet. - Continue present medications. - Await pathology results. - No source of bleeding or cause for anemia identified My findings are described in the full procedure note, which is enclosed. If I can be of further assistance, please feel free to contact me at Doctor phone number(s): , Work: . Sincerely, MD Eliana Adams MD 07/29/2019 11:25:01 AM This report has been signed electronically.
== END 2019-07-29 12:04 | disposition home or self-care (01) ==
LOC: EN 09:39 → AC 10:03
PROVIDERS: Family Provider Family Medicine; PCP Family Medicine; Referring Provider Surgery; Visit Provider Surgery
PROC: 0DJ08ZZ Inspection of Upper Intestinal Tract, Via Natural or Artificial Opening Endoscopic (ICD-10-PCS; CPT 43235; principal; 2019-07-29 10:55)
DX: K29.50 Unspecified chronic gastritis without bleeding (principal); K44.9 Diaphragmatic hernia without obstruction or gangrene; K21.9 Gastro-esophageal reflux disease without esophagitis; D50.9 Iron deficiency anemia, unspecified; M48.00 Spinal stenosis, site unspecified; M19.90 Unspecified osteoarthritis, unspecified site; I10 Essential (primary) hypertension; C50.412 Malignant neoplasm of upper-outer quadrant of left female breast; F43.21 Adjustment disorder with depressed mood; M34.9 Systemic sclerosis, unspecified; Z86.010 Personal history of colon polyps; Z78.0 Asymptomatic menopausal state; Z79.899 Other long term (current) drug therapy
CPT/HCPCS: 43239; 88305; 88342; J7120; J2405

== ENCOUNTER → 2019-08-13 10:54 | Outpatient (CLI) | payer MEDICARE, OTHER, SELFPAY ==
[2019-07-29 10:33] VITALS: BMI 39.2
[2019-08-13 12:39] LABS: Absolute Lymphocyte Count 1.13 X10^3/uL (0.83-4.51); Absolute Neutrophil Count 3.1 X10^3/uL (2.0-7.7); Basophil# 0.03 X10^3/uL; Basophil% 0.6 % (0-1); Eosinophil# 0.26 X10^3/uL; Eosinophils% 5.2 % (0-5); Hematocrit 37.7 % (37-47); Hemoglobin 11.7 g/dL (12.0-15.0); Lymphocyte # 1.13 X10^3/ul (4.0); Lymphocyte % 22.6 % (19-41); Mean Corpuscular Hgb 27.1 pg (27.0-32.0); Mean Corpuscular Volume 87.5 fL (81-99); Mean Platelet Vol. 9.9 fl (6.2-12.0); Monocyte# 0.49 X10^3/uL; Monocyte% 9.8 % (0-10); NRBC Flagged by Analyzer 0 % (0-5); Neutrophil # 3.09 X10^3/uL (2.7-7.7); Neutrophil % 61.6 % (47-70); Platelet Count 235 K/mm3 (150-450); RBC Distribution Width CV 15.8 % (11.6-14.6); RBC Distribution Width SD 50.9 fl (35.1-43.9); Red Blood Count 4.31 M/mm3 (4.2-5.4)
[2019-08-13 13:09] LABS: Ferritin 30 ng/mL (8-252); Iron 111 ug/dL (50-170)
== END ==
PROVIDERS: Family Provider Family Medicine; PCP Family Medicine; Visit Provider Family Medicine
DX: D50.9 Iron deficiency anemia, unspecified (principal)
CPT/HCPCS: 36415; 82728; 83540; 85025

== ENCOUNTER → 2019-12-04 09:59 | Outpatient (CLI) | payer MEDICARE, OTHER, SELFPAY ==
--- NOTE | 2019-12-04 10:01 | RAD_ITS ---
STUDY: X-RAY CHEST REASON FOR EXAM: Female, 64 years old. Persistent cough TECHNIQUE: PA and lateral views of the chest COMPARISON: X-ray chest July 20, 2017 FINDINGS: Right lower lung zone atelectasis and/or small infiltrate is present. The left lung is clear. There are no pleural effusions. There is no pneumothorax. The heart is normal in size. The visualized osseous structures are within normal limits. RAD/Chest PA and Lateral IMPRESSION: Right lower lung zone atelectasis and/or small infiltrate. Electronically Signed: Adriel Spence, at 20:17 EST Tel , Service support ,
== END ==
PROVIDERS: PCP Family Medicine; Referring Provider Family Medicine; Visit Provider Family Medicine
DX: R05 Cough (principal)
CPT/HCPCS: 71046

== ENCOUNTER → 2020-01-15 08:43 | Outpatient (CLI) | payer MEDICARE, OTHER, SELFPAY ==
[2020-01-15 12:19] LABS: Absolute Lymphocyte Count 1.19 X10^3/uL (0.83-4.51); Absolute Neutrophil Count 4.7 X10^3/uL (2.0-7.7); Basophil# 0.02 X10^3/uL; Basophil% 0.3 % (0-1); Eosinophil# 0.27 X10^3/uL; Eosinophils% 4.1 % (0-5); Hematocrit 37.8 % (37-47); Hemoglobin 11.9 g/dL (12.0-15.0); Lymphocyte # 1.19 X10^3/ul (4.0); Lymphocyte % 17.9 % (19-41); Mean Corp Hgb Conc 31.5 g/dL (32-36); Mean Corpuscular Hgb 28.1 pg (27.0-32.0); Mean Corpuscular Volume 89.2 fL (81-99); Mean Platelet Vol. 9.7 fl (6.2-12.0); Monocyte# 0.47 X10^3/uL; Monocyte% 7.1 % (0-10); NRBC Flagged by Analyzer 0 % (0-5); Neutrophil # 4.69 X10^3/uL (2.7-7.7); Neutrophil % 70.4 % (47-70); Platelet Count 244 K/mm3 (150-450); RBC Distribution Width CV 14.2 % (11.6-14.6); RBC Distribution Width SD 45.7 fl (35.1-43.9); Red Blood Count 4.24 M/mm3 (4.2-5.4); White Blood Count 6.7 K/mm3 (4.4-11.0)
[2020-01-15 12:28] LABS: Anion Gap 6 (5-15); BUN 20 mg/dL (7-18); BUN/Creat Ratio 25.2 RATIO (10-20); Chloride 103 mmol/L (98-107); EST Glomerular Filtration Rate 77 mL/min (>60); Est Glom Filt Rate - Afr Amer 93 mL/min (>60); Ferritin 28 ng/mL (8-252); Glucose 88 mg/dL (74-106); Iron 60 ug/dL (50-170); Potassium 3.5 mmol/L (3.5-5.1); Sodium Level 139 mmol/L (136-145)
== END ==
PROVIDERS: PCP Family Medicine; Visit Provider Family Medicine
DX: I10 Essential (primary) hypertension (principal); E61.1 Iron deficiency
CPT/HCPCS: 36415; 80048; 82728; 83540; 85025

== ENCOUNTER → 2020-03-27 10:05 | Outpatient (CLI) | payer MEDICARE, OTHER, SELFPAY ==
--- NOTE | 2020-03-27 10:06 | BI_ITS ---
MAMMOGRAPHY - BILATERAL SCREENING REASON FOR EXAM: Female, 64 years old. Routine annual screening examination. PERTINENT HISTORY: TECHNIQUE: Digital bilateral breast dru (3D mammographic acquisition) in the CC and MLO projections. 2-D mediolateral oblique (MLO) and craniocaudad (CC) views of both breasts were obtained. CAD: Full Field Digital Mammography with Computer Added Detection was performed. COMPARISON: None. FINDINGS: Breast Composition: There is a cluster of microcalcification in the upper retroareolar region of the left breast for which further evaluation by magnification views and ultrasound would be recommended. There is a cluster of microcalcification in the inferior retroareolar region of the right breast for which further evaluation by magnification views and ultrasound would be recommended. No other significant abnormalities are identified. BI/SCREEN MAMM (CAD) W/DRU BILAT IMPRESSION: Further imaging evaluation recommended, as described above. (E) ASSESSMENT CATEGORY: BIRADS Category 0: Incomplete. Need additional imaging evaluation. A letter regarding these results will be sent to the patient by the facility within 30 days. Approximately 10% of breast cancers are not detected by mammography. A normal mammogram should not delay biopsy of a clinically suspicious abnormality. [id number] Electronically Signed: Justyn Franco, at 12:57 EDT Tel , Service support ,
--- OUTSIDE RECORDS SUMMARY | 2020-08-25 11:11 | XMS RPT_ITS | CCD ---
:1955 External Reference #:[id number] Author Organization [facility] Care Team Providers Name Role Phone Karissa HODGE, L Unavailable Willi WALL Unavailable Unavailable MIGUELITO, L Unavailable Unavailable VINICIO Unavailable Unavailable MIGUELITO, L Unavailable Unavailable ARIANNA Unavailable Unavailable HOSPITALIST Unavailable Unavailable BOUSERHAL Unavailable Unavailable MOON RAlicia Unavailable Unavailable Willi ANDERS Unavailable Unavailable Kameron DAMIAN Unavailable Unavailable NASHAWATI Unavailable Unavailable MIGUELITO, L Unavailable Unavailable VINICIO Unavailable Unavailable SCHEATZLE Unavailable Unavailable SCHEATZLE Unavailable Unavailable VINICIO Unavailable Unavailable MALIK Unavailable Unavailable Karissa HODGE L Unavailable Armand Yang Primary Care Provider Allergies Reported Allergen Reaction(s) Severity Date of Onset Location acetaminophen / GI upset Moderate, 01-30-2012 - [facility] HYDROcodone [facility] ([id number]) acetaminophen / GI Upset 10-05-2005 - [facility] inic HYDROcodone Other Holcomb Translations: [ Repository HYDROCODONE-ACETAMINOPH EN] codeine Translations: [ GI Upset Moderate, 10-05-2005 - [facility] CODEINE] [facility] (535 35) Medications Medication Name Sig Date Prescriber Location anastrozole anastrozole (ARIMIDEX) 07-07-2020 [facility] 1 mg tablet [facility] (227 40) Indications: 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 90 tablet 3 07/01/2020 Active ANASTROZOLE 1 MG TABS One 05-04-2017 [facility] Tony rgical tablet by mouth daily [facility] (64485) ANASTROZOLE [id number] Rosalee Kohli Comment: Take 1 tablet by mouth once daily. apremilast apremilast (OTEZLA) 30 mg 07-24-2020 [facility] [address] [facility] tablet Take 30 mg by mouth ( 23085) once daily. 0 07/24/2020 Discontinued Comment: Take 30 mg by mouth once amy ly. aspirin ADULT ASPIRIN EC LOW STRENGTH 81 05-04-2017 [facility] (85564) MG TBEC One tablet by mouth daily ASPIRIN [id number] Rosalee Kohli ASPIRIN 81 MG TABS One tablet 01-31-2012 - 08-10-2016 [facility] by mouth daily as needed (13938) ASPIRIN [id number] Mejia Lozano MD ADULT ASPIRIN EC LOW STRENGTH 01-31-2012 - 08-10-2016 [facility] 81 MG TBEC One tablet by mouth ( 85155) daily ASPIRIN [id number] Rosalee Kohli cyclobenzaprine CYCLOBENZAPRINE HCL 10 MG 01-30-2012 [facility] TABS As needed As sociates CYCLOBENZAPRINE HCL (11331) [id number] Michelle Norton RN hydroCHLOROthiazide HYDROCHLOROTHIAZIDE 25 MG 01-30-2012 - [facility] TABS One tablet by mouth 05-04-2017 Ass ociates daily (70206) HYDROCHLOROTHIAZIDE [id number] Rosalee Kohli hydroCHLOROthiazide / LISINOPRIL-HYDROCHLOROTHI 05-04-2017 [facility] lisinopril AZIDE 10-12.5 MG TABS One [facility] tablet by mouth daily (49006 ) LISINOPRIL-HYDROCHLOROTHI AZIDE [id number] Rosalee Kohli lisinopril-hydrochlorothiazide [facility] (PRINZIDE,ZESTORETIC) 10-12.5 mg per tablet (67361) Take 1 tablet by mouth once daily. 0 Active Comment: Take 1 tablet by mouth once daily. lisinopril LISINOPRIL 5 MG TABS One 02-02-2012 Michelle Norton RN [facility] tablet by mouth daily (83261 ) LISINOPRIL [id number] Mejia Lozano MD LISINOPRIL 2.5 MG TABS two tabs once 05-04-2017 [facility] (69984) daily LISINOPRIL [id number] Rosalee Kohli LORazepam ATIVAN 1 MG TABS 1 08-11-2016 - [facility] Surgi ev tablet PO before 05-04-2017 [facility] procedure (80026) LORAZEPAM [id number] Rosalee A Seun meloxicam MOBIC 7.5 MG TABS One 01-30-2012 - [facility] Tony rgical tablet by mouth daily 08-10-2016 [facility] at[facility] MELOXICAM (00972) [id number] Michelle Norton RN methylcellulose CITRUCEL 500 MG TABS 05-04-2017 [facility] One tablet by mouth Associat es daily (29656) METHYLCELLULOSE (LAXATIVE) [id number] Rosalee A Seun multivitamin tablet multivitamin tablet [facility] Provider C leveland Take 1 tablet by Clinic (692 21) mouth once daily. 0 Active multivitamin tablet Take 1 tablet by mouth [facility] (02217) once daily. 0 Active multivitamin tablet Take 1 tablet by mouth [facility] (75779) once daily. 0 Active Comment: Take 1 tablet by mouth once daily. omeprazole [facility] OMEPRAZOLE 20 MG TBEC One 05-04-2017 [facility] tablet by mouth daily (57291 ) OMEPRAZOLE [id number] Rosalee A Seun [facility] OMEPRAZOLE 20 MG 05-04-2017 [facility] Surgica l TBEC One tablet by Associates (4 4691) mouth daily OMEPRAZOLE [id number] Rosalee A Kohli omeprazole 20 mg 01-30-2012 - Talib Jalloh (Hist) [facility] capsule Indications: 08-10-2016 [facility] (76673) GERD (gastroesophageal reflux disease) Take one(1) capsule daily 1/2 hr before meal. 90 capsule 3 12/27/2012 Active Comment: Take one(1) capsule daily 1/ 2 hr before meal. sertraline ZOLOFT 25 MG TABS One 01-30-2012 - [facility] Tony rgical tablet by mouth daily 08-10-2016 Associ bharath (25523) SERTRALINE HCL [id number] Michelle Norton RN triamcinolone TRIAMCINOLONE ACETONIDE 05-04-2017 [facility] Surgical 0.1 % OINT as needed Aracely gregg (99632) TRIAMCINOLONE ACETONIDE [id number] Rosalee Kohli Problems Active Problems Category Problem Name Status Date Location Anxiety disorders Anxiety disorder Active [facility] (448 91) Cancer of breast Primary malignant Active 08-24-2016 - [facility] Tony rgical neoplasm of female breast As sociates (94567) Esophageal disorders Gastroesophageal reflux Active 0 - [facility] disease (60227) Essential hypertension Hypertensive disorder Active 5 - [facility] (440 91) Mood disorders Depressive disorder Active 02-16-2007 - [facility] (02101) Osteoarthritis Osteoarthritis Active 11-10-2005 - [facility] Surgica l [facility] (442 91) Other nutritional; Overweight Active 05-04-2017 - [facility] Surgi ev endocrine; and Associates (4 4375) metabolic disorders Other nutritional; Obesity Active 11-10-2005 - [facility] endocrine; and (27981) metabolic disorders Other skin disorders Localized scleroderma Active 03-03-2009 - [facility] (60326) Prolapse of female Midline cystocele Active 12-25-2008 - [facility] genital organs (19639) Rheumatoid arthritis Rheumatoid arthritis with Active [facility] Surgical and related disease rheumatoid factor, As sociates (27436) unspecified Secondary malignancies Secondary malignant Active 09-21-2016 - [facility] neoplasm of axillary (37988) lymph nodes Unclassified Screening for malignant Active 05-04-2017 - [facility] neoplasm of colon [facility] (35890) Unclassified Patient encounter status Active 12-27-2012 - [facility] (22508) Past or Other Problems Category Problem Name Status Date Location Abdominal hernia Hiatal hernia Completed 06-16-2010 - [facility] (58959) Anal and rectal Disorder of rectum Completed 12-25-2008 - [facility] conditions (65423) Gastritis and Acute gastritis Completed 10-11-2010 - [facility] linic duodenitis (49990) Nonmalignant breast Mammographic breast Completed 08-10-2016 - [facility] conditions mass [facility] (446 91) Nonspecific chest pain Chest pain, Completed 01-30-2012 - [facility] S urgical unspecified Associates (009 11) Other lower respiratory Dyspnea Completed 01-30-2012 - [facility] Surgical disease [facility] (447 25) Pulmonary heart disease Pulmonary embolism Completed 12-11-2008 - [facility] with pulmonary (23471) infarction Spondylosis; Low back pain Completed 02-16-2007 - [facility] ic intervertebral disc (68105) disorders; other back problems Results Result Name Value Range Unit Interpretation Flag Date Location progress on 2020-07 PROGRESS HNO ID: [id number] Normal 07-24-2020 [facility] Author: Vanesa Hua) Juan Manuel Hudson ([id number]) Service: ? Author Type: Adult Ministries Director Type: Progress Notes Filed: 07/24/2020 4:15 PM Note Text: SOCIAL WORK DISTRESS ASSESSMENT Referral made due to:Moderate distress Contact was made: By telephone call with patient Problems Addressed: Practical: N/A Family: Dealing with children Emotional: Worry Spiritual Concerns: N/A Physical Problems: Fatigue Exercising: N/A Stress Management: Yes Is the patient's distress related to a change in quality of life? No Patient with current Suicidal Ideation: No MENTAL HEALTH HISTORY: No Substance Use and Treatment History: denied History of Abuse: denied History of combat/trauma: No INTERVENTION/PLAN: Monitor patient response to treatment Communicate pertinent medical/psychosocial information to [facility] Center team Provide emotional support to patient/family Provided education on distress and screening process Continue follow up as needed Resources and Referrals: ? Internal: NA ? External: N/A Follow up appointment with FELICIA in: PRN FELICIA called patient on t his day to monitor MH symptoms following OV. Patient reports she scored high on the distress screening due to the fact that she has been home sc hooling her three grandchildren recently due to COVID. Patient reports t his is week 2 or 3 and she is still working on getting into a routine with this. Patient denies current needs and states that she has a strong suppor t system if she really needs assistance with this. She states the older grandchild is a freshman and does not require much assistance, which makes it somewhat easier. Patient is agreeable to reaching out if any needs ar ise. Vanesa TATUM Serrano PROGRESS HNO ID: [id number] Normal 07-24-2020 [facility] Author: Sariah Palacios Hudson ([id number]) Service: ? Author Type: Nurse Practitioner Type: Progress Notes Filed: 07/24/2020 9:38 AM Note Text: Chief Complaint Patient presents with: Established Patient HPI: Cr Lee is a 64 year old female who presents here toda y for follow up breast cancer. Per Dr. Jones's previous note: H/o hypertension. She was found to have an abnormality in th e left breast on a screening mammogram. She underwent a diagnostic mammogr am and ultrasound which was highly suspicious for malignancy in the breast. She was referred to Dr. Chavez. ?? She underwent a left breast core needle biopsy. Pathology si gnificant for invasive ductal carcinoma, nuclear grade 2. ER/UT both >95%. Moderate ER and strong UT. HER2 2+. Non-amplified by FISH. ?? Patient underwent a lumpectomy along with sentinel lymph nod e biopsy on 09/07/2016. In the lumpectomy specimen there was a single fo cus of invasive carcinoma measuring 1.5 cm in size. Overall grade w as 2. Closest margin was 2.5 mm laterally. Lymphovascular invasion was not identified. One of 2 lymph nodes was positive for a macro metastasis georges suring 4 x 1.88 mm. ? She completed radiation to the left breast. She had no compl ications. Treatment was done at Dr. Albert office. ?? Oncotype Dx test. Recurrence score of 18 suggesting 12% 5 yr risk of mortality and/or recurrence. ? Current therapy:Arimidex Began 2016. ? No complaints. ?? Appetite:Very good.?Energy level:I'm tired a lot. 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 Denies fevers?or recent illness. Resp:denies?cough?or sob, occ. young because I'm out of shape . Cardiac:denies chest pain/palpitations GI:denies abd pain, n/v, moving bowels regularly I get cons tipated sometimes from taking iron. :denies dysuria/hematuria Extrem:h/o arthritis to back/hips/knees-chronic (both hips r eplaced) s/p b/l hip replacement in her 40's Endo:hot flashes I don't get them much anymore. Neuro:occ. hand numbness r/t carpal tunnel, had surgery to R wrist for carpal tunnel?my toes have been numb for years-since all my surgeries. Skin:denies rashes/lesions Heme:denies bleeding The ROS is otherwise negative. Past medical history, appointments, medications, allergies r eviewed. No changes. EXAM: BP 134/70 Pulse 77 Temp 36.6 ?C (97.9 ?F) (Temporal) W t 106.1 kg (234 lb) BMI 40.95 kg/m? APPEARANCE Well appearing, alert, in no acute distress, well -hydrated, well nourished. HEART RRR with normal S1 and S2, no murmurs LUNG clear to auscultation BREAST FEMALE no mass/nodule b/l, L radiation changes/scar t o L lower/inner LYMPH NODES No cervical lymphadenopathy, No supraclavicular lymphadenopathy and No axillary lymphadenopathy. ABDOMEN bowel sounds normoactive, soft, non-tender, non-dist ended, without organomegaly or palpable masses EXTREMITIES No edema NEURO Awake, alert and oriented x 3, Normal gait and No invo luntary motions. SKIN Skin color, texture, turgor normal, no suspicious rashe s or lesions ASSESSMENT/PLAN: 1. Malignant neoplasm of upper-outer quadrant of left breast in female, estrogen receptor positive (HCC) - ICD9: 174.4, V86.0, ICD10 : C50.412, Z17.0 pT1c (1.5 cm; grade 2; no ALI) pN1 MX ER/UT positive, HER-2 nonamplified invasive ductal carcinoma left breast. Oncotype Dx-Recurrence score of 18. S/p lumpectomy along with sentinel lymph node biopsy on 08/14. S/p radiation-Dr. Albert office. - ?No concerning findings on exam. - ?Arimidex-tolerating well overall-had arthritis prior to A I. - Reviewed mammogram with pt. - ?B/l?Mammogram due March 2021. Pt. has this done at [facility]. - ?Follow up in 6 months. - ?Pt. aware to call office with any questions/concerns. ? ? The patient indicates understanding of these issues and agre es with the plan. ? All documentation from previous visit of 01/22/20-Dr. Jones/praneeth yself was copied and pasted, documentation has been reviewed and edite d as necessary for today's visit. ? ? Sariah Palacios, CHANNING.HEALTH POLICY ANALYST cnsw on 2020-07-24 CNSW Social Work (HEMAWS) Normal 0 [facility] CR LEE ([id number]) 1955 [facility] Date Time Provider Department ([id number]) 07/24/20 VANESA SERRANO (SW) During your visit today, we recorded the following informati on about you: TATUM Benítez 07/24/2020 4:15 PM Signed SOCIAL WORK DISTRESS ASSESSMENT Referral made due to:Moderate distress Contact was made: By telephone call with patient Problems Addressed: Practical: N/A Family: Dealing with children Emotional: Worry Spiritual Concerns: N/A Physical Problems: Fatigue Exercising: N/A Stress Management: Yes Is the patient's distress related to a change in quality of life? No Patient with current Suicidal Ideation: No MENTAL HEALTH HISTORY: No Substance Use and Treatment History: denied History of Abuse: denied History of combat/trauma: No INTERVENTION/PLAN: Monitor patient response to treatment Communicate pertinent medical/psychosocial information to Cancer Center team Provide emotional support to patient/family Provided education on distress and screening process Continue follow up as needed Resources and Referrals: ? Internal: NA ? External: N/A Follow up appointment with FELICIA in: RULA DUARTE called patient on this day to monitor MH symptoms following OV. Patient reports she scored high on the distress screening due to the fact that she has been home schooling h er three grandchildren recently due to COVID. Patient reports t his is week 2 or 3 and she is still working on getting into a routine with this. Pedro kaylie denies current needs and states that she has a strong support sys tem if she really needs assistance with this. She states the older grandchild is a freshman and does not require much assistance, which makes it somew hat easier. Patient is agreeable to reaching out if any needs arise. TATUM Benítez Allergies As of Date: 07/24/2020 Noted Allergy Reaction CODEINE 10/05/2005 8 - GI Upset VICODIN (HYDROCODONE-ACETAMINOPHE*10/05/2005 8 - GI Upset Date Reviewed: 07/24/2020 Reviewed by: Sariah Palacios - Fully Assessed Prescriptions as of 07/24/2020 Sig: ANASTROZOLE 1 MG TABLET Take 1 tablet by mouth once d* MULTIVITAMIN TABLET Take 1 tablet by mouth once d* LISINOPRIL 10 MG-HYDROCHLOROT* Take 1 tablet by mouth once d * OMEPRAZOLE 20 MG CAPSULE,TACOS* Take one(1) capsule daily 1/2 * Problem List As Of Date 07/24/2020 Noted Resolved Obesity, unspecified [E66.9] 11/10/2005 Essential hypertension, benign [I10] 11/10/2005 Generalized osteoarthrosis, unspecified site [M*11/10/2005 More... Lumbago [M54.5] 02/16/2007 More... Depressive disorder, not elsewhere classified [*02/16/2007 Other pulmonary embolism and infarction [I26.99]12/11/2008 More... 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 Routine general medical examination at a health*04/29/2010 0 01/23/2012 Class: Chronic More... Routine gynecological examination [Z01.419] 04/29/201001/22 Class: Chronic More... Hiatal hernia [K44.9] 06/16/2010 More... 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 Six month OV. Mariluz Palacios APRN.HEALTH POLICY ANALYST 07/24/2020 9:38 AM Signed Chief Complaint Patient presents with: Established Patient HPI: Cr Lee is a 64 year old female who presents here to day for follow up breast cancer. Per Dr. Jones's previous note: H/o hypertension. She was found to have an abnormality in the left breast on a screening mammogram. She underwent a omari gnostic mammogram and ultrasound which was highly suspicious for malignancy in the breast. She wa s referred to Dr. Chavez. ?? She underwent a left breast core needle biopsy. Pathology si gnificant for invasive ductal carcinoma, nuclear grade 2. ER/UT both >95%. Moderate ER and strong UT. HER2 2+. Non-amplified by FISH. ?? Patient underwent a lumpectomy along with sentinel lymph nod e biopsy on 09/07/2016. In the lumpectomy specimen there was a single focus of invasive carcinoma measuring 1.5 cm i n size. Overall grade was 2. Closest margin was 2.5 mm laterally. Lymphovascular invasion wa s not identified. One of 2 lymph nodes was positive for a macro metastasis measuring 4 x 1.88 mm. ? She completed radiation to t he left breast. She had no complications. Treatment was done at Dr. Albert office. ?? Oncotype Dx test. Recurrence score of 18 suggesting 12% 5 yr risk of mortality and/or recurrence. ? Current therapy:Arimidex Began 2016. ? No complaints. ?? Appetite:Very good.?Energy level:I'm tired a lot. 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 Denies fevers?or recent illness. Resp:denies?cough?or sob, occ. young because I'm out of shape . Cardiac:denies chest pain/palpitations GI:denies abd pain, n/v, moving bowels regularly I get constipated sometimes from taking iron. :denies dysuria/hematuria Extrem:h/o arthritis to back/hips/knees-chronic (both hips replaced) s/p b/l hip replacement in her 40's Endo:hot flashes I don't get them much anymore. Neuro:occ. hand numbness r/t carpal tunnel, had surgery to R wrist for carpal tunnel?my toes have been numb for years-since all my surger ies. Skin:denies rashes/lesions Heme:denies bleeding The ROS is otherwise negative. Past medical history, appoin tments, medications, allergies reviewed. No changes. EXAM: BP 134/70 Pulse 77 Temp 36.6 ?C (97.9 ?F) (Temporal) Wt 106.1 kg (234 lb) BMI 40.95 kg/m? APPEARANCE Well appearing, alert, in no acute distress, we ll-hydrated, well nourished. HEART RRR with normal S1 and S2, no murmurs LUNG clear to auscultation BREAST FEMALE no mass/nodule b/l, L radiation changes/scar to L lower/inner LYMPH NODES No cervical lymp hadenopathy, No supraclavicular lymphadenopathy and No axillary lymphadenopathy. ABDOMEN bowel sounds normoactive, soft, non-tender, non-dist ended, without organomegaly or palpable masses EXTREMITIES No edema NEURO Awake, alert and oriented x 3, Normal gait and N o involuntary motions. SKIN Skin color, texture, turgor normal, no suspicious rashe s or lesions ASSESSMENT/PLAN: 1. Malignant neoplasm of upper-outer quadrant of left breast in female, estrogen receptor positive (HCC) - ICD9: 174.4, V86.0, ICD10: C50.412, Z17.0 pT1c (1.5 cm; grade 2; no ALI) pN1 MX ER/UT positive, HER-2 nonamplified invasive ductal carcinoma left breast. Oncotype Dx-Recurrence score of 18. S/p lumpectomy along with sentinel lymph node biopsy on 08/14. S/p radiation-Dr. Albert office. - ?No concerning findings on exam. - ?Arimidex-tolerating well overall-had arthritis prior to A I. - Reviewed mammogram with pt. - ?B/l?Mammogram due March 2021. Pt. has this done at [facility]. - ?Follow up in 6 months. - ?Pt. aware to call office with any questions/concerns. ? ? The patient indicates understanding of these iss ues and agrees with the plan. ? All documentation from previous visit of 01/22/20-Dr. Praneeth harry/myself was copied and pasted, documentation shine s been reviewed and edited as necessary for today's visit. ? ? Sariah Palacios, CHANNING.HEALTH POLICY ANALYST Referring Provider: SARIAH PALACIOS [[id number]] Allergies As of Date: 07/24/2020 Noted Allergy Reaction CODEINE 10/05/2005 8 - GI Upset VICODIN (HYDROCODONE-ACETAMINOPHE*10/05/2005 8 - GI Upset Date Reviewed: 07/24/2020 Reviewed by: Sariah Palacios - Fully Assessed Reason for Visit: Established Patient [175] Primary Visit Diagnosis:Malignant neoplasm of upper-outer qu adrant of left breast in female, estrogen receptor positive (HCC) [C50.412, Z17.0] Follow-up and Disposition History Recorded Prescriptions as of 07/24/2020 Sig: ANASTROZOLE 1 MG TABLET Take 1 tablet by mouth once d* MULTIVITAMIN TABLET Take 1 tablet by mouth once d* LISINOPRIL 10 MG-HYDROCHLOROT* Take 1 tablet by mouth once d * OMEPRAZOLE 20 MG CAPSULE,TACOS* Take one(1) capsule daily 1/2 * Medication notes this encounter OMEPRAZOLE 20 MG CAPSULE,DELAYED RELEASE >> Mariluz Archer LPN 07/24/2020 8:35 AM >> TICO SOLOMON MARILUZ MonJul 24, 2020 8:35 AM daily Problem List As Of Date 07/24/2020 Noted Resolved Obesity, unspecified [E66.9] 11/10/2005 Essential hypertension, benign [I10] 11/10/2005 Generalized osteoarthrosis, unspecified site [M*11/10/2005 More... Lumbago [M54.5] 02/16/2007 More... Depressive disorder, not elsewhere classified [*02/16/2007 Other pulmonary embolism and infarction [I26.99]12/11/2008 More... 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 Routine general medical examination at [facility]*04/29/2010 0 01/23/2012 Class: Chronic More... Routine gynecological examination [Z01.419] 04/29/201001/22 Class: Chronic More... Hiatal hernia [K44.9] 06/16/2010 More... 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 Six month OV. Mariluz Archer LPN Encounter Status:Closed by SARIAH PALACIOS CNP on 07/24/20 obsolete on 2020-06 OBSOLETE Refill (HEMAWS) Normal 07-01-2020 Kishan snowden [facility] CR LEE ([id number]) 1955 [facility] Date Time Provider Department ([id number]) 07/01/20 SARIAH PALACIOS During your visit today, we recorded the following informati on about you: Michelle Westvenkat Pss 07/01/2020 9:46 AM Signed Patient called requesting refill on Anastrozole 1mg Please call [phone] Thank you Michelle Westvenkat Pss Allergies As of Date: 07/01/2020 Noted Allergy Reaction CODEINE 10/05/2005 8 - GI Upset VICODIN (HYDROCODONE-ACETAMINOPHE*10/05/2005 8 - GI Upset Date Reviewed: 01/22/2020 Reviewed by: Sariah Palacios - Fully Assessed Reason for Visit: Refill Request [94] Visit Diagnosis: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] Order(s):anastrozole (ARIMIDEX) 1 mg tabletTake 1 tablet by mouth once daily.Disp: 90 tabletRfl: 3 Prescriptions as of 07/01/2020 Sig: ANASTROZOLE 1 MG TABLET Take 1 tablet by mouth once d* OTEZLA 30 MG TABLET Take 30 mg by mouth once steven* MULTIVITAMIN TABLET Take 1 tablet by mouth once d* LISINOPRIL 10 MG-HYDROCHLOROT* Take 1 tablet by mouth once d * OMEPRAZOLE 20 MG CAPSULE,TACOS* Take one(1) capsule daily 1/2 * Problem List As Of Date 07/01/2020 Noted Resolved Obesity, unspecified [E66.9] 11/10/2005 Essential hypertension, benign [I10] 11/10/2005 Generalized osteoarthrosis, unspecified site [M*11/10/2005 More... Lumbago [M54.5] 02/16/2007 More... Depressive disorder, not elsewhere classified [*02/16/2007 Other pulmonary embolism and infarction [I26.99]12/11/2008 More... 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 Routine general medical examination at a [facility] [place]*04/29/2010 0 01/23/2012 Class: Chronic More... Routine gynecological examination [Z01.419] 04/29/201001/22 Class: Chronic More... Hiatal hernia [K44.9] 06/16/2010 More... Esophageal reflux [K21.9] 10/11/2010 Acute gastritis without mention of hemorrhage [*10/11/2010 NSAID long-term use [Z79.1] 12/27/2012 Breast cancer of upper-outer quadrant of left f*09/21/2016 Metastatic cancer to axillary lymph nodes (HCC)*09/21/2016 Malignant neoplasm of upper-outer quadrant of l*07/24/2017 Prescriptions ordered this encounter Disp Refills Start End ANASTROZOLE 1 MG TABLET 90 t* 3 07/01/2020 Route: ORAL Sig: Take 1 tablet by mouth once daily. Medications Discontinued During This Encounter Prescriptions - anastrozole (ARIMIDEX) 1 mg tablet (Discontinued) Take 1 tablet by mouth once daily. Encounter Status:Closed by SARIAH PALACIOS CNP on 07/01/20 cnpn on 2020-04-09 WESLEYN Telephone (ELDON) Normal 04-09-2020 [facility] CR LEE ([id number]) 1955 [place] Date Time Provider Department ([id number]) 04/09/20 SARIAH PALACIOS During your visit today, we recorded the following informati on about you: Sariah Palacios APRN.CNP 04/09/2020 3:20 PM Signed Please inform pt. that her dx mamm done at [facility] on 04/08/20 lo oks good. Follow up as scheduled. Sariah Palacios, CHANNING.HEALTH POLICY ANALYST Alisha Orellana, RN, RN 04/09/2020 3:23 PM Signed Pt. notified. Voices understanding. Alisha Orellana RN Allergies As of Date: 04/09/2020 Noted Allergy Reaction CODEINE 10/05/2005 8 - GI Upset VICODIN (HYDROCODONE-ACETAMINOPHE*10/05/2005 8 - GI Upset Date Reviewed: 01/22/2020 Reviewed by: Sariah Palacios - Fully Assessed Reason for Visit: Results [95] Prescriptions as of 04/09/2020 Sig: OTEZLA 30 MG TABLET Take 30 mg by mouth once steven* MULTIVITAMIN TABLET Take 1 tablet by mouth once d* ANASTROZOLE 1 MG TABLET Take 1 tablet by mouth once d* LISINOPRIL 10 MG-HYDROCHLOROT* Take 1 tablet by mouth once d * OMEPRAZOLE 20 MG CAPSULE,TACOS* Take one(1) capsule daily 1/2 * Problem List As Of Date 04/09/2020 Noted Resolved Obesity, unspecified [E66.9] 11/10/2005 Essential hypertension, benign [I10] 11/10/2005 Generalized osteoarthrosis, unspecified site [M*11/10/2005 More... Lumbago [M54.5] 02/16/2007 More... Depressive disorder, not elsewhere classified [*02/16/2007 Other pulmonary embolism and infarction [I26.99]12/11/2008 More... 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 Routine general medical examination at [facility]*04/29/2010 0 01/23/2012 Class: Chronic More... Routine gynecological examination [Z01.419] 04/29/201001/22 Class: Chronic More... Hiatal hernia [K44.9] 06/16/2010 More... 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 Please advise. Alesha Palacios APRN.HEALTH POLICY ANALYST 04/03/2020 2:05 PM Signed It was not sent over to us. I spoke with pt. and reviewed mammogram. Please schedule b/l dx mamm/US at [facility] soon. Pt. aware that this is being scheduled. Orders in. Thank you. Sariah Palacios APRN.WESLEY Galeano [facility] 04/03/2020 3:17 PM Signed I called and scheduled patient for diagnostic mammogram and ultrasound at [facility] for 04/08/20 @ 2:00pm. I called Cr and re layed these appointments to her and she stated understanding. Order have been faxed to [facility] scheduling at [phone] Nikos Galeano [facility] Allergies As of Date: 04/03/2020 Noted Allergy Reaction CODEINE 10/05/2005 8 - GI Upset VICODIN (HYDROCODONE-ACETAMINOPHE*10/05/2005 8 - GI Upset Date Reviewed: 01/22/2020 Reviewed by: Sariah Palacios - Fully Assessed Reason for Visit: Mammogram Results [Other] Primary Visit Diagnosis:Malignant neoplasm of upper-outer qu adrant of left breast in female, estrogen receptor positive (HCC) [C50.412, Z17.0] Other Visit Diagnosis:Abnormal mammogram of both breasts [R9 2.8] Order(s):[facility] [[id number]] Order #: [id number] FUTURE [facility] BREAST LTD RT [[id number]] Order #: [id number] FUTURE [employer] BREAST LTD LT [[id number]] Order #: [id number] FUTURE Prescriptions as of 04/03/2020 Sig: OTEZLA 30 MG TABLET Take 30 mg by mouth once steven* MULTIVITAMIN TABLET Take 1 tablet by mouth once d* ANASTROZOLE 1 MG TABLET Take 1 tablet by mouth once d* LISINOPRIL 10 MG-HYDROCHLOROT* Take 1 tablet by mouth once d * OMEPRAZOLE 20 MG CAPSULE,TACOS* Take one(1) capsule daily 1/2 * Problem List As Of Date 04/03/2020 Noted Resolved Obesity, unspecified [E66.9] 11/10/2005 Essential hypertension, benign [I10] 11/10/2005 Generalized osteoarthrosis, unspecified site [M*11/10/2005 More... Lumbago [M54.5] 02/16/2007 More... Depressive disorder, not elsewhere classified [*02/16/2007 Other pulmonary embolism and infarction [I26.99]12/11/2008 More... 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 Routine general medical examination at a health*04/29/2010 0 01/23/2012 Class: Chronic More... Routine gynecological examination [Z01.419] 04/29/201001/22 Class: Chronic More... Hiatal hernia [K44.9] 06/16/2010 More... Esophageal reflux [K21.9] 10/11/2010 Acute gastritis without mention of hemorrhage [*10/11/2010 NSAID long-term use [Z79.1] 12/27/2012 Breast cancer of upper-outer quadrant of left f*09/21/2016 Metastatic cancer to axillary lymph nodes (HCC)*09/21/2016 Malignant neoplasm of upper-outer quadrant of l*07/24/2017 Encounter Status:Closed by NIKOS WHITE on 04/03/20 progress on 2020-01 PROGRESS HNO ID: [id number] Normal 01-22-2020 [facility] Author: Sariah Palacios [facility] ([id number]) Service: ? Author Type: Nurse Practitioner Type: Progress Notes Filed: 01/23/2020 10:46 AM Note Text: Chief Complaint Patient presents with: Established Patient HPI: Cr Lee is a 64 year old female who presents here toda y for follow up breast cancer. Per Dr. Jones's previous note: H/o hypertension. She was found to have an abnormality in th e left breast on a screening mammogram. She underwent a diagnostic mammogr am and ultrasound which was highly suspicious for malignancy in the breast. She was referred to Dr. Chavez. ?? She underwent a left breast core needle biopsy. Pathology si gnificant for invasive ductal carcinoma, nuclear grade 2. ER/UT both >95%. Moderate ER and strong UT. HER2 2+. Non-amplified by FISH. ?? Patient underwent a lumpectomy along with sentinel lymph nod e biopsy on 09/07/2016. In the lumpectomy specimen there was a single fo cus of invasive carcinoma measuring 1.5 cm in size. Overall grade w as 2. Closest margin was 2.5 mm laterally. Lymphovascular invasion was not identified. One of 2 lymph nodes was positive for a macro metastasis georges suring 4 x 1.88 mm. ? She completed radiation to the left breast. She had no compl ications. Treatment was done at Dr. Albert office. ?? Oncotype Dx test. Recurrence score of 18 suggesting 12% 5 yr risk of mortality and/or recurrence. ? Current therapy:Arimidex Began 2016. ? No complaints. ? Pt. being work-up for WILLIAMS by PCP. ?? Appetite:great?Energy level:good Denies fevers?or recent illness. 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 Neuro:occ. L hand numbness r/t carpal tunnel, had surgery to R wrist for carpal tunnel my toes are always numb-since all my surgerie s. Skin:denies rashes/lesions Heme:denies bleeding The ROS is otherwise negative. Past medical history, appointments, medications, allergies r eviewed. No changes. EXAM: BP 140/90 Pulse 70 Temp 36.8 ?C (98.2 ?F) (Temporal) W t 105.7 kg (233 lb) BMI 40.77 kg/m? APPEARANCE?Well appearing, alert, in no acute distress, well -hydrated, well nourished. HEART?RRR with normal S1 and S2, no murmurs LUNG?clear to auscultation BREAST FEMALE?no mass/nodule b/l, L radiation changes/scar t o L lower/inner LYMPH NODES?No cervical lymphadenopathy, No supraclavicular lymphadenopathy and No axillary lymphadenopathy. ABDOMEN?bowel sounds normoactive, soft, non-tender, non-dist ended, without organomegaly or palpable masses EXTREMITIES?No edema NEURO?Awake, alert and oriented x 3, Normal gait and No invo luntary motions. SKIN?Skin color, texture, turgor normal, no suspicious rashe s or lesions ASSESSMENT/PLAN: 1. Malignant neoplasm of upper-outer quadrant of left breast in female, estrogen receptor positive (HCC) - ICD9: 174.4, V86.0, ICD10 : C50.412, Z17.0 (primary diagnosis) pT1c (1.5 cm; grade 2; no ALI) pN1 MX ER/UT positive, HER-2 nonamplified invasive ductal carcinoma left breast. 2. Encounter for screening mammogram for high-risk patient - ICD9: V76.11, ICD10: Z12.31 - ?No concerning findings on exam. - ?Arimidex-tolerating fairly well except for hot flashes. - ?B/l?Mammogram due March 2020. Pt. has this done at [facility]. - ?Follow up in 6 months-pending mammogram. - ?Pt. aware to call office with any questions/concerns. ? ? The patient indicates understanding of these issues an d agrees with the plan. ? ? ? Sariah Palacios APRN.CNP ? jonovsp on 2020-01-12 1 CNOVSP Visit (SP) Office (ELDON) Normal [facility] LEE ([id number]) 1955 [place] [facility] Date Time Provider Department ([id number]) 01/22/20 9:00 AM SARIAH PALACIOS During your visit today, we recorded the following informati on about you: Temperature Pulse Blood pressure Weight 98.2 degrees 70/minute 140/90 105.7 kg Sariah Palacios APRN.HEALTH POLICY ANALYST 01/23/2020 10:46 AM Signed Chief Complaint Patient presents with: Established Patient HPI: Cr Lee is a 64 year old female who presents here to day for follow up breast cancer. Per Dr. Jones's previous note: H/o hypertension. She was found to have an abnormality in the left breast on a screening mammogram. She underwent a omari gnostic mammogram and ultrasound which was highly suspicious for malignancy in the breast. She wa s referred to Dr. Chavez. ?? She underwent a left breast core needle biopsy. Pathology si gnificant for invasive ductal carcinoma, nuclear grade 2. ER/UT both >95%. Moderate ER and strong UT. HER2 2+. Non-amplified by FISH. ?? Patient underwent a lumpectomy along with sentinel lymph nod e biopsy on 09/07/2016. In the lumpectomy specimen there was a single focus of invasive carcinoma measuring 1.5 cm i n size. Overall grade was 2. Closest margin was 2.5 mm laterally. Lymphovascular invasion wa s not identified. One of 2 lymph nodes was positive for a macro metastasis measuring 4 x 1.88 mm. ? She completed radiation to t he left breast. She had no complications. Treatment was done at Dr. Albert office. ?? Oncotype Dx test. Recurrence score of 18 suggesting 12% 5 yr risk of mortality and/or recurrence. ? Current therapy:Arimidex Began 2016. ? No complaints. ? Pt. being work-up for WILLIAMS by PCP. ?? Appetite:great?Energy level:good Denies fevers?or recent illness. 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 Neuro:occ. L hand numbness r /t carpal tunnel, had surgery to R wrist for carpal tunnel my toes are always numb-since all my surgeries. Skin:denies rashes/lesions Heme:denies bleeding The ROS is otherwise negative. Past medical history, appoin tments, medications, allergies reviewed. No changes. EXAM: BP 140/90 Pulse 70 Temp 36.8 ?C (98.2 ?F) (Temporal) Wt 105.7 kg (233 lb) BMI 40.77 kg/m? APPEARANCE?Well appearing, alert, in no acute distress, we ll-hydrated, well nourished. HEART?RRR with normal S1 and S2, no murmurs LUNG?clear to auscultation BREAST FEMALE?no mass/nodule b/l, L radiation changes/scar to L lower/inner LYMPH NODES?No cervical lymp hadenopathy, No supraclavicular lymphadenopathy and No axillary lymphadenopathy. ABDOMEN?bowel sounds normoactive, soft, non-tender, non-dist ended, without organomegaly or palpable masses EXTREMITIES?No edema NEURO?Awake, alert and oriented x 3, Normal gait and N o involuntary motions. SKIN?Skin color, texture, turgor normal, no suspicious rashe s or lesions ASSESSMENT/PLAN: 1. Malignant neoplasm of upper-outer quadrant of left breast in female, estrogen receptor positive (HCC) - ICD9: 174.4, V86.0, ICD10: C50.412, Z17.0 (primary diagnosis) pT1c (1.5 cm; grade 2; no ALI) pN1 MX ER/UT positive, HER-2 nonamplified invasive ductal carcinoma left breast. 2. Encounter for screening mammogram for high-risk patient - ICD9: V76.11, ICD10: Z12.31 - ?No concerning findings on exam. - ?Arimidex-tolerating fairly well except for hot flashes. - ?B/l?Mammogram due March 2020. Pt. has this done at [facility]. - ?Follow up in 6 months-pending mammogram. - ?Pt. aware to call office with any questions/concerns. ? ? The patient indicates understanding of these iss ues and agrees with the plan. ? ? ? Sariah Palacios, CHANNING.HEALTH POLICY ANALYST ? Referring Provider: SARIAH PALACIOS [[id number]] Allergies As of Date: 01/22/2020 Noted Allergy Reaction CODEINE 10/05/2005 8 - GI Upset VICODIN (HYDROCODONE-ACETAMINOPHE*10/05/2005 8 - GI Upset Date Reviewed: 01/22/2020 Reviewed by: Sariah Palacios - Fully Assessed Reason for Visit: Established Patient [175] Primary Visit Diagnosis:Malignant neoplasm of upper-outer qu adrant of left breast in female, estrogen receptor positive (HCC) [C50.412, Z17.0] Other Visit Diagnosis:Encounter for screening ma mmogram for high-risk patient [Z12.31] Order(s):[facility] SCREENING W DRU [[id number]] Order #: [id number] FUTURE Follow-up and Disposition History Recorded Prescriptions as of 01/22/2020 Sig: OTEZLA 30 MG TABLET Take 30 mg by mouth once steven* MULTIVITAMIN TABLET Take 1 tablet by mouth once d* ANASTROZOLE 1 MG TABLET Take 1 tablet by mouth once d* LISINOPRIL 10 MG-HYDROCHLOROT* Take 1 tablet by mouth once d * OMEPRAZOLE 20 MG CAPSULE,TACOS* Take one(1) capsule daily 1/2 * Medication notes this encounter IRON ORAL >> Michelle Jones MA 01/22/2020 8:47 AM >> MICHELLE JONES MA MonJan 22, 2020 8:47 AM No longer taking. Problem List As Of Date 01/22/2020 Noted Resolved Obesity, unspecified [E66.9] 11/10/2005 Essential hypertension, benign [I10] 11/10/2005 Generalized osteoarthrosis, unspecified site [M*11/10/2005 More... Lumbago [M54.5] 02/16/2007 More... Depressive disorder, not elsewhere classified [*02/16/2007 Other pulmonary embolism and infarction [I26.99]12/11/2008 More... 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 Routine general medical examination at [facility]*04/29/2010 0 01/23/2012 Class: Chronic More... Routine gynecological examination [Z01.419] 04/29/201001/22 Class: Chronic More... Hiatal hernia [K44.9] 06/16/2010 More... Esophageal reflux [K21.9] 10/11/2010 Acute gastritis without mention of hemorrhage [*10/11/2010 NSAID long-term use [Z79.1] 12/27/2012 Breast cancer of upper-outer quadrant of left f*09/21/2016 Metastatic cancer to axillary lymph nodes (HCC)*09/21/2016 Malignant neoplasm of upper-outer quadrant of l*07/24/2017 Encounter Status:Closed by SARIAH PALACIOS CNP on 01/23/20 hh on 2018-11-02 Hematocrit Auto Volume 24.7 34.0-46.0 % Low 018 [facility] Fraction (Bld) ([place]) ([id number]) Comment: Performed By: #### CBC, ADIF F, ANEU, APTT, PRO, BMP, GFR, PRALB, TRF ####[place] [id number] [place] [address] Hemoglobin mass conc (Bld) 7.9 12.0-16.0 G/dL Low [facility] ([place]) (0000 0) Comment: Performed By: #### CBC, ADIF F, ANEU, APTT, PRO, BMP, GFR, PRALB, TRF ####[place] [address] fes on 2018-11-02 Iron Sat 8 % Normal 11-02-2018 [facility] ([place]) ([id number]) Comment: Performed By: #### CBC, ADIF F, ANEU, APTT, PRO, BMP, GFR, PRALB, TRF ####[place] [address] TIBC 248 250-500 mcg/dL Low 11-02-2018 [facility] ([place]) ([id number]) Comment: Performed By: #### CBC, ADIF F, ANEU, APTT, PRO, BMP, GFR, PRALB, TRF ####[place] [address] Iron mass conc 20 37-170 mcg/dL Low 11-02-2018 [facility] ([place]) ([id number]) Comment: Performed By: #### CBC, ADIF F, ANEU, APTT, PRO, BMP, GFR, PRALB, TRF ####[place] [address] cbc on 2018-10-31 Erythrocyte distribution 15.6 11.5-15.5 % High 10-31 [facility] width Auto Ratio (RBC) ([place]) (13211) Comment: Performed By: #### CBC, ADIF F, ANEU, APTT, PRO, BMP, GFR, PRALB, TRF ####[place] [address] Hematocrit Auto Volume 29.1 34.0-46.0 % Low 018 [facility] Fraction (Bld) ([place]) ([id number]) Comment: Performed By: #### CBC, ADIF F, ANEU, APTT, PRO, BMP, GFR, PRALB, TRF ####[place] [address] Hemoglobin mass conc (Bld) 9.6 12.0-16.0 G/dL Low [facility] ([place]) (0000 0) Comment: Performed By: #### CBC, ADIF F, ANEU, APTT, PRO, BMP, GFR, PRALB, TRF ####[place] [address] MCH Auto Entitic mass 28.2 27.0-33.0 pg Normal 10-31-20 18 [facility] (RBC) ([place]) (0000 0) Comment: Performed By: #### CBC, ADIF F, ANEU, APTT, PRO, BMP, GFR, PRALB, TRF ####[place] [address] MCHC Auto mass conc 33.0 32.0-36.0 G/dL Normal 10-31-2018 [facility] (RBC) ([place]) (0000 0) Comment: Performed By: #### CBC, ADIF F, ANEU, APTT, PRO, BMP, GFR, PRALB, TRF ####[place] [address] MCV Auto Entitic volume 85.6 80.0-99.0 fL Normal 2017 [facility] (RBC) ([place]) (0000 0) Comment: Performed By: #### CBC, ADIF F, ANEU, APTT, PRO, BMP, GFR, PRALB, TRF ####[place] [address] Platelet mean volume Auto 8.4 6.6-10.5 fL Normal 10-13 [facility] Entitic volume (Bld) ([place]) (54600) Comment: Performed By: #### CBC, ADIF F, ANEU, APTT, PRO, BMP, GFR, PRALB, TRF ####[place] [address] Platelets Auto #/vol 347 150-450 10 3/mcL Normal 8 [facility] (Bld) [facility] ([place]) ([address]495) Comment: Performed By: #### CBC, ADIF F, ANEU, APTT, PRO, BMP, GFR, PRALB, TRF ####[address] [address] RBC Auto #/vol ([facility]) 3.40 4.10-5.30 10 6/mcL Low 8 [facility] ([place]) (0000 0) Comment: Performed By: #### CBC, ADIF F, ANEU, APTT, PRO, BMP, GFR, PRALB, TRF ####[address] [address] WBC Auto #/vol 7.10 4.50-10.80 10 3/mcL Normal 10-31-2018 [facility] ([facility] ([place]) ([id number]) Comment: Performed By: #### CBC, ADIF F, ANEU, APTT, PRO, BMP, GFR, PRALB, TRF ####[address] [address] bmp on 2018-10-31 Calcium mass conc 7.7 8.4-10.1 mg/dL Low 10-31-2018 [facility] ([place]) ([address]81) Comment: Performed By: #### CBC, ADIF F, ANEU, APTT, PRO, BMP, GFR, PRALB, TRF ####[place] [address] Chloride molar conc 98 98-110 mEq/L Normal 10-31-2018 [facility] ([place]) (15587) Comment: Performed By: #### CBC, ADIF F, ANEU, APTT, PRO, BMP, GFR, PRALB, TRF ####[address] [address] CO2 molar conc 30 22-32 mEq/L Normal 10-31-2018 [facility] ([place]) ([address]) Comment: Performed By: #### CBC, ADIF F, ANEU, APTT, PRO, BMP, GFR, PRALB, TRF ####[place] [address] Creatinine mass conc 0.66 0.50-1.20 mg/dL Normal 8 [facility] ([place]) (0000 0) Comment: Performed By: #### CBC, ADIF F, ANEU, APTT, PRO, BMP, GFR, PRALB, TRF ####[address] [address] Electrolyte Balance 8.0 4.0-15.0 mEq/L Normal 10-31-2018 [facility] ([place]) (0000 0) Comment: Performed By: #### CBC, ADIF F, ANEU, APTT, PRO, BMP, GFR, PRALB, TRF ####[address] [address] Glucose mass conc 111 82-115 mg/dL Normal 10-31-2018 [facility] ([place]) ([address]) Comment: Performed By: #### CBC, ADIF F, ANEU, APTT, PRO, BMP, GFR, PRALB, TRF ####[address] [address] Potassium molar conc 4.4 3.5-5.0 mEq/L Normal 8 [facility] ([place]) (0000 0) Comment: Performed By: #### CBC, ADIF F, ANEU, APTT, PRO, BMP, GFR, PRALB, TRF ####[address] [address] Sodium molar conc 136 136-145 mEq/L Normal 10-31-2018 [facility] ([place]) (12382) Comment: Performed By: #### CBC, ADIF F, ANEU, APTT, PRO, BMP, GFR, PRALB, TRF ####[address] [address] Urea nitrogen mass conc 14.0 8.0-22.0 mg/dL Normal 2017 [facility] ([place]) ([address]6501) Comment: Performed By: #### CBC, ADIF F, ANEU, APTT, PRO, BMP, GFR, PRALB, TRF ####[place] [id number] Urea nitrogen/Creatinine 21.2 10.0-22.0 ratio Normal 10-31 [facility] ([place]) ([address]141) Comment: Performed By: #### CBC, ADIF F, ANEU, APTT, PRO, BMP, GFR, PRALB, TRF ####[place] [id number] [place] [address] .neuabs on Neutrophil, Absolute 5.00 2.25-8.10 10 3/mcL Normal 8 [facility] ([place]) (56535) Comment: Performed By: #### CBC, ADIF F, ANEU, APTT, PRO, BMP, GFR, PRALB, TRF ####[place] [id number] [place] [address] .gfr on 2018-10-31 GFR Non- >60 Normal 10-31 [facility] ([place]) ([id number]) Comment: Result Comment: GFR Populati on mean for , Non- Americans Ages 20-29 = 116 m L/min/1.73 sq.m. Ages 30-39 = 107 mL/min/1.73 sq.m. Ages 40-49 = 99 mL/min /1.73 sq.m. Ages 50-59 = 93 mL/min/1.73 sq.m. Ages 60-69 = 85 mL/min/1.73 sq.m. Ages 70+ = 75 mL/min/1.73 sq.m.Chronic Kidney Disease: Less than 60 mL/min/1.73 square metersEnd Stage Renal Disease: Less than 15 mL/min /1.73 square meters Performed By: #### CBC, ADIF F, ANEU, APTT, PRO, BMP, GFR, PRALB, TRF ####[place] [id number] [address] [place] [address] GFR >60 Normal 8 [facility] ([place]) ([id number]) Comment: Result Comment: GFR Populati on mean for , Non- Americans Ages 20-29 = 116 m L/min/1.73 sq.m. Ages 30-39 = 107 mL/min/1.73 sq.m. Ages 40-49 = 99 mL/min /1.73 sq.m. Ages 50-59 = 93 mL/min/1.73 sq.m. Ages 60-69 = 85 mL/min/1.73 sq.m. Ages 70+ = 75 mL/min/1.73 sq.m.Chronic Kidney Disease: Less than 60 mL/min/1.73 square metersEnd Stage Renal Disease: Less than 15 mL/min /1.73 square meters Performed By: #### CBC, ADIF F, ANEU, APTT, PRO, BMP, GFR, PRALB, TRF ####[address] [address] .auto diff on 10-31 Ammonia mass conc 0.70 0.09-1.40 10 3/mcL Normal 10-31-2018 [facility]) ([id number]) Comment: Performed By: #### CBC, ADIF F, ANEU, APTT, PRO, BMP, GFR, PRALB, TRF ####[place] [address] Basophils Auto #/vol 0.10 0.00-0.27 10 3/mcL Normal 8 [facility]) ([id number]) Comment: Performed By: #### CBC, ADIF F, ANEU, APTT, PRO, BMP, GFR, PRALB, TRF ####[address] [address] Basophils/100 WBC Auto ([facility]) 0.9 0.0-2.5 % Normal 1 01-01-2018 [facility] ([place]) (0000 0) Comment: Performed By: #### CBC, ADIF F, ANEU, APTT, PRO, BMP, GFR, PRALB, TRF ####[address] [address] Eosinophils Auto #/vol 0.40 0.00-0.65 10 3/mcL Normal 018 [facility]) ([id number]) Comment: Performed By: #### CBC, ADIF F, ANEU, APTT, PRO, BMP, GFR, PRALB, TRF ####[address] [address] Eosinophils/100 WBC Auto 4.9 0.0-6.0 % Normal 10-31 [facility] ([place]) ([id number]) Comment: Performed By: #### CBC, ADIF F, ANEU, APTT, PRO, BMP, GFR, PRALB, TRF ####[address] [address] Lymphocytes Auto #/vol 1.00 0.90-4.32 10 3/mcL Normal 018 [facility] ([place]) ([id number]) Comment: Performed By: #### CBC, ADIF F, ANEU, APTT, PRO, BMP, GFR, PRALB, TRF ####[address] [address] Lymphocytes/100 WBC Auto 14.7 20.0-40.0 % Low 10-31 [facility] ([place]) ([id number]) Comment: Performed By: #### CBC, ADIF F, ANEU, APTT, PRO, BMP, GFR, PRALB, TRF ####[address] [address] Monocytes/100 WBC Auto ([facility]) 9.8 2.0-13.0 % Normal 1 01-01-2018 [facility] ([place]) (69907) Comment: Performed By: #### CBC, ADIF F, ANEU, APTT, PRO, BMP, GFR, PRALB, TRF ####[address] [address] Neutrophils/100 WBC Auto 69.7 50.0-75.0 % Normal 10-31 [facility] ([place]) (34983) Comment: Performed By: #### CBC, ADIF F, ANEU, APTT, PRO, BMP, GFR, PRALB, TRF ####[address] [address] hh on 2018-10-30 Hematocrit Auto Volume 23.6 34.0-46.0 % Low 018 [facility] Fraction (Bld) ([place]) ([id number]) Comment: Performed By: #### CBC, ADIF F, ANEU, APTT, PRO, BMP, GFR, PRALB, TRF ####[address] [address] Hemoglobin mass conc (Bld) 7.7 12.0-16.0 G/dL Low [facility] ([place]) (0000 0) Comment: Performed By: #### CBC, ADIF F, ANEU, APTT, PRO, BMP, GFR, PRALB, TRF ####[address] [address] pralb on 2018-10-29 Prealbumin mass conc 7.7 18.0-38.0 mg/dL Low 8 [facility] ([place]) (0000 0) Comment: Performed By: #### CBC, ADIF F, ANEU, APTT, PRO, BMP, GFR, PRALB, TRF ####[place] [address] cbc on 2018-10-29 Erythrocyte distribution 15.3 11.5-15.5 % Normal 10-29 [facility] Auto Ratio (RBC) [facility] [place] ([place]) ([id number]) Comment: Performed By: #### CBC, ADIF F, ANEU, APTT, PRO, BMP, GFR, PRALB, TRF ####[place] [address] Hematocrit Auto Volume 25.6 34.0-46.0 % Low 018 [facility] Fraction (Bld) ([place]) ([id number]) Comment: Performed By: #### CBC, ADIF F, ANEU, APTT, PRO, BMP, GFR, PRALB, TRF ####[address] [address] Hemoglobin mass conc (Bld) 8.4 12.0-16.0 G/dL Low [facility] ([place]) (0000 0) Comment: Performed By: #### CBC, ADIF F, ANEU, APTT, PRO, BMP, GFR, PRALB, TRF ####[address] [address] MCH Auto Entitic mass 28.3 27.0-33.0 pg Normal 10-29-20 18 [facility] (RBC) ([place]) (0000 0) Comment: Performed By: #### CBC, ADIF F, ANEU, APTT, PRO, BMP, GFR, PRALB, TRF ####[place] [address] MCHC Auto mass conc 32.9 32.0-36.0 G/dL Normal 10-29-2018 [facility] (RBC) ([place]) (0000 0) Comment: Performed By: #### CBC, ADIF F, ANEU, APTT, PRO, BMP, GFR, PRALB, TRF ####[place] [address] MCV Auto Entitic volume 86.1 80.0-99.0 fL Normal 2017 [facility] (RBC) ([place]) (0000 0) Comment: Performed By: #### CBC, ADIF F, ANEU, APTT, PRO, BMP, GFR, PRALB, TRF ####[place] [address] Platelet mean volume Auto 8.3 6.6-10.5 fL Normal 10-13 [facility] Entitic volume (Bld) ([place]) ([id number]) Comment: Performed By: #### CBC, ADIF F, ANEU, APTT, PRO, BMP, GFR, PRALB, TRF ####[place] [address] Platelets Auto #/vol 200 150-450 10 3/mcL Normal 8 [facility] (d) [facility] [place] ([place]) ([id number]) Comment: Performed By: #### CBC, ADIF F, ANEU, APTT, PRO, BMP, GFR, PRALB, TRF ####[place] [address] RBC Auto #/vol (Bld) 2.98 4.10-5.30 10 6/mcL Low 8 [facility] ([place]) (0000 0) Comment: Performed By: #### CBC, ADIF F, ANEU, APTT, PRO, BMP, GFR, PRALB, TRF ####[address] [address] WBC Auto #/vol 5.80 4.50-10.80 10 3/mcL Normal 10-29-2018 [facility] ([facility]) [facility] [place] ([place] ([id number]) Comment: Performed By: #### CBC, ADIF F, ANEU, APTT, PRO, BMP, GFR, PRALB, TRF ####[address] [address] bmp on 2018-10-29 Creatinine mass conc 0.66 0.50-1.20 mg/dL Normal 8 [facility] ([place]) (0000 0) Comment: Performed By: #### CBC, ADIF F, ANEU, APTT, PRO, BMP, GFR, PRALB, TRF ####[place] [address] Urea nitrogen/Creatinine mass 22.7 10.0-22.0 ratio High 10-29-2018 [facility] ([place]) ([id number]) Comment: Performed By: #### CBC, ADIF F, ANEU, APTT, PRO, BMP, GFR, PRALB, TRF ####[address] [address] Calcium mass conc 7.3 8.4-10.1 mg/dL Low 10-29-2018 A [facility] ([place]) ([id number]) Comment: Performed By: #### CBC, ADIF F, ANEU, APTT, PRO, BMP, GFR, PRALB, TRF ####[address] [address] Chloride molar conc 100 98-110 mEq/L Normal 10-29-2018 [facility] ([place]) (01441) Comment: Performed By: #### CBC, ADIF F, ANEU, APTT, PRO, BMP, GFR, PRALB, TRF ####[place] [address] CO2 molar conc 30 22-32 mEq/L Normal 10-29-2018 [facility] ([place]) (11742) Comment: Performed By: #### CBC, ADIF F, ANEU, APTT, PRO, BMP, GFR, PRALB, TRF ####[place] [address] Electrolyte Balance 8.0 4.0-15.0 mEq/L Normal 10-29-2018 [facility]) (0000 0) Comment: Performed By: #### CBC, ADIF F, ANEU, APTT, PRO, BMP, GFR, PRALB, TRF ####[place] [address] Glucose mass conc 105 82-115 mg/dL Normal 10-29-2018 A [facility] ([place]) (84903) Comment: Performed By: #### CBC, ADIF F, ANEU, APTT, PRO, BMP, GFR, PRALB, TRF ####[place] [address] Potassium molar conc 4.6 3.5-5.0 mEq/L Normal 8 [facility] ([place]) (0000 0) Comment: Performed By: #### CBC, ADIF F, ANEU, APTT, PRO, BMP, GFR, PRALB, TRF ####[place] [address] Sodium molar conc 138 136-145 mEq/L Normal 10-29-2018 [facility] ([place]) (74847) Comment: Performed By: #### CBC, ADIF F, ANEU, APTT, PRO, BMP, GFR, PRALB, TRF ####[address] [address] Urea nitrogen mass conc 15.0 8.0-22.0 mg/dL Normal 2017 [facility] ([place]) (25301) Comment: Performed By: #### CBC, ADIF F, ANEU, APTT, PRO, BMP, GFR, PRALB, TRF ####[address] [address] .neuabs on Neutrophil, Absolute 3.60 2.25-8.10 10 3/mcL Normal 8 [facility] ([place]) (80987) Comment: Performed By: #### CBC, ADIF F, ANEU, APTT, PRO, BMP, GFR, PRALB, TRF ####[place] [id number] .gfr on 2018-10-29 GFR >60 Normal 8 [facility] ([place]) (89805) Comment: Result Comment: GFR Populati on mean for , Non- Americans Ages 20-29 = 116 m L/min/1.73 sq.m. Ages 30-39 = 107 mL/min/1.73 sq.m. Ages 40-49 = 99 mL/min /1.73 sq.m. Ages 50-59 = 93 mL/min/1.73 sq.m. Ages 60-69 = 85 mL/min/1.73 sq.m. Ages 70+ = 75 mL/min/1.73 sq.m.Chronic Kidney Disease: Less than 60 mL/min/1.73 square metersEnd Stage Renal Disease: Less than 15 mL/min /1.73 square meters Performed By: #### CBC, ADIF F, ANEU, APTT, PRO, BMP, GFR, PRALB, TRF ####[address] [address] GFR Non- >60 Normal 10-29 -2017 [facility] ([place]) ([id number]) Comment: Result Comment: GFR Populati on mean for , Non- Americans Ages 20-29 = 116 m L/min/1.73 sq.m. Ages 30-39 = 107 mL/min/1.73 sq.m. Ages 40-49 = 99 mL/min /1.73 sq.m. Ages 50-59 = 93 mL/min/1.73 sq.m. Ages 60-69 = 85 mL/min/1.73 sq.m. Ages 70+ = 75 mL/min/1.73 sq.m.Chronic Kidney Disease: Less than 60 mL/min/1.73 square metersEnd Stage Renal Disease: Less than 15 mL/min /1.73 square meters Performed By: #### CBC, ADIF F, ANEU, APTT, PRO, BMP, GFR, PRALB, TRF ####[address] [address] .auto diff on 10-29 Ammonia mass conc 0.70 0.09-1.40 10 3/mcL Normal 10-29-2018 [facility]) ([id number]) Comment: Performed By: #### CBC, ADIF F, ANEU, APTT, PRO, BMP, GFR, PRALB, TRF ####[address] [address] Basophils Auto #/vol 0.00 0.00-0.27 10 3/mcL Normal 8 [facility]) (55647) Comment: Performed By: #### CBC, ADIF F, ANEU, APTT, PRO, BMP, GFR, PRALB, TRF ####[address] [address] Basophils/100 WBC Auto (Bld) 0.8 0.0-2.5 % Normal 1 12-30-2017 [facility] ([place]) (0000 0) Comment: Performed By: #### CBC, ADIF F, ANEU, APTT, PRO, BMP, GFR, PRALB, TRF ####[address] [address] Eosinophils Auto #/vol 0.40 0.00-0.65 10 3/mcL Normal 018 [facility]) ([id number]) Comment: Performed By: #### CBC, ADIF F, ANEU, APTT, PRO, BMP, GFR, PRALB, TRF ####[address] [address] Eosinophils/100 WBC Auto (Bld) 6.4 0.0-6.0 % High 10-29-2018 [facility] ([place]) (0000 0) Comment: Performed By: #### CBC, ADIF F, ANEU, APTT, PRO, BMP, GFR, PRALB, TRF ####[address] [address] Lymphocytes Auto #/vol 1.10 0.90-4.32 10 3/mcL Normal [address] [place] [address]) ([id number]) Comment: Performed By: #### CBC, ADIF F, ANEU, APTT, PRO, BMP, GFR, PRALB, TRF ####[address] [address] Lymphocytes/100 WBC Auto 18.8 20.0-40.0 % Low 10-29 [facility]) (59537) Comment: Performed By: #### CBC, ADIF F, ANEU, APTT, PRO, BMP, GFR, PRALB, TRF ####[address] [address] Monocytes/100 WBC Auto 11.7 2.0-13.0 % Normal [address] [place] [address]) (14646) Comment: Performed By: #### CBC, ADIF F, ANEU, APTT, PRO, BMP, GFR, PRALB, TRF ####[address] [address] Neutrophils/100 WBC Auto 62.3 50.0-75.0 % Normal 10-29 [facility]) (49219) Comment: Performed By: #### CBC, ADIF F, ANEU, APTT, PRO, BMP, GFR, PRALB, TRF ####[address] [address] cmp on 2018-10-27 Albumin/Globulin mass ratio 0.7 0.9-1.6 ratio Low [facility] ([place]) (57817) Comment: Performed By: #### CBC, ADIF F, ANEU, APTT, PRO, BMP, GFR, PRALB, TRF ####[address] [address] ALP enzyme act/vol 63 38-126 U/L Normal 10-27-2018 [facility] ([place]) (52770) Comment: Performed By: #### CBC, ADIF F, ANEU, APTT, PRO, BMP, GFR, PRALB, TRF ####[address] [address] Bili Total 0.5 0.2-1.2 mg/dL Normal 10-27-2018 [facility] ([place]) (60346) Comment: Performed By: #### CBC, ADIF F, ANEU, APTT, PRO, BMP, GFR, PRALB, TRF ####[address] [address] Creatinine mass conc 0.90 0.50-1.20 mg/dL Normal 8 [facility] ([place]) (0000 0) Comment: Performed By: #### CBC, ADIF F, ANEU, APTT, PRO, BMP, GFR, PRALB, TRF ####[place] [address] Globulin Calculated mass 3.1 1.5-3.8 G/dL Normal 10-27 [facility] conc (S) ([place]) (0000 0) Comment: Performed By: #### CBC, ADIF F, ANEU, APTT, PRO, BMP, GFR, PRALB, TRF ####[address] [address] Protein mass conc 5.4 6.0-8.5 G/dL Low 10-27-2018 A [facility] ([place]) (28992) Comment: Performed By: #### CBC, ADIF F, ANEU, APTT, PRO, BMP, GFR, PRALB, TRF ####[address] [address] Urea nitrogen/Creatinine mass 25.6 10.0-22.0 ratio High 10-27-2018 [facility] ([place]) (25366) Comment: Performed By: #### CBC, ADIF F, ANEU, APTT, PRO, BMP, GFR, PRALB, TRF ####[address] [address] Albumin mass conc 2.3 3.2-4.8 G/dL Low 10-27-2018 [facility] ([place]) (85591) Comment: Performed By: #### CBC, ADIF F, ANEU, APTT, PRO, BMP, GFR, PRALB, TRF ####[place] [address] ALT enzyme act/vol 13 10-49 U/L Normal 10-27-2018 [facility] ([place]) (55379) Comment: Performed By: #### CBC, ADIF F, ANEU, APTT, PRO, BMP, GFR, PRALB, TRF ####[place] [address] AST enzyme act/vol 26 8-34 U/L Normal 10-27-2018 [facility] ([place]) (80104) Comment: Performed By: #### CBC, ADIF F, ANEU, APTT, PRO, BMP, GFR, PRALB, TRF ####[place] [address] Calcium mass conc 7.8 8.4-10.1 mg/dL Low 10-27-2018 [facility] ([place]) (73077) Comment: Performed By: #### CBC, ADIF F, ANEU, APTT, PRO, BMP, GFR, PRALB, TRF ####[place] [address] Chloride molar conc 103 98-110 mEq/L Normal 10-27-2018 [facility] ([place]) (99055) Comment: Performed By: #### CBC, ADIF F, ANEU, APTT, PRO, BMP, GFR, PRALB, TRF ####[address] [address] CO2 molar conc 29 22-32 mEq/L Normal 10-27-2018 [facility] ([place]) (60839) Comment: Performed By: #### CBC, ADIF F, ANEU, APTT, PRO, BMP, GFR, PRALB, TRF ####[place] [address] Electrolyte Balance 6.0 4.0-15.0 mEq/L Normal 10-27-2018 [facility] ([place]) (0000 0) Comment: Performed By: #### CBC, ADIF F, ANEU, APTT, PRO, BMP, GFR, PRALB, TRF ####[place] [address] Glucose mass conc 101 82-115 mg/dL Normal 10-27-2018 [facility] ([place]) (22663) Comment: Performed By: #### CBC, ADIF F, ANEU, APTT, PRO, BMP, GFR, PRALB, TRF ####[place] [address] Potassium molar conc 4.3 3.5-5.0 mEq/L Normal 8 [facility] ([place]) (0000 0) Comment: Performed By: #### CBC, ADIF F, ANEU, APTT, PRO, BMP, GFR, PRALB, TRF ####[place] [address] Sodium molar conc 138 136-145 mEq/L Normal 10-27-2018 [facility] ([place]) (80584) Comment: Performed By: #### CBC, ADIF F, ANEU, APTT, PRO, BMP, GFR, PRALB, TRF ####[place] [address] Urea nitrogen mass conc 23.0 8.0-22.0 mg/dL High 2017 [facility] ([place]) (0000 0) Comment: Performed By: #### CBC, ADIF F, ANEU, APTT, PRO, BMP, GFR, PRALB, TRF ####[address] [address] cbc on 2018-10-27 Erythrocyte distribution 15.6 11.5-15.5 % High 10-27 [facility] width Auto Ratio (RBC) ([place]) ([id number]) Comment: Performed By: #### CBC, ADIF F, ANEU, APTT, PRO, BMP, GFR, PRALB, TRF ####[place] [address] Hematocrit Auto Volume 28.7 34.0-46.0 % Low 018 [facility] Fraction (Bld) ([place]) (20788) Comment: Performed By: #### CBC, ADIF F, ANEU, APTT, PRO, BMP, GFR, PRALB, TRF ####[place] [address] Hemoglobin mass conc (Bld) 9.3 12.0-16.0 G/dL Low [facility] ([place]) (0000 0) Comment: Performed By: #### CBC, ADIF F, ANEU, APTT, PRO, BMP, GFR, PRALB, TRF ####[place] [address] MCH Auto Entitic mass 28.3 27.0-33.0 pg Normal 10-27-20 18 [facility] (RBC) ([place]) (0000 0) Comment: Performed By: #### CBC, ADIF F, ANEU, APTT, PRO, BMP, GFR, PRALB, TRF ####[place] [address] MCHC Auto mass conc 32.6 32.0-36.0 G/dL Normal 10-27-2018 [facility] (RBC) ([place]) (0000 0) Comment: Performed By: #### CBC, ADIF F, ANEU, APTT, PRO, BMP, GFR, PRALB, TRF ####[place] [address] MCV Auto Entitic volume 86.7 80.0-99.0 fL Normal 2017 [facility] ([facility]BC) ([place]) (0000 0) Comment: Performed By: #### CBC, ADIF F, ANEU, APTT, PRO, BMP, GFR, PRALB, TRF ####[place] [address] Platelet mean volume Auto 8.5 6.6-10.5 fL Normal 10-13 [facility] Entitic volume (Bld) ([place]) ([id number]) Comment: Performed By: #### CBC, ADIF F, ANEU, APTT, PRO, BMP, GFR, PRALB, TRF ####[address] [address] Platelets Auto #/vol 186 150-450 10 3/mcL Normal 8 [facility]) (62885) Comment: Performed By: #### CBC, ADIF F, ANEU, APTT, PRO, BMP, GFR, PRALB, TRF ####[place] [address] RBC Auto #/vol (Bld) 3.30 4.10-5.30 10 6/mcL Low 8 [facility] ([place]) (0000 0) Comment: Performed By: #### CBC, ADIF F, ANEU, APTT, PRO, BMP, GFR, PRALB, TRF ####[place] [address] WBC Auto #/vol 10.60 4.50-10.80 10 3/mcL Normal 10-27-2018 [facility]) ([id number]) Comment: Performed By: #### CBC, ADIF F, ANEU, APTT, PRO, BMP, GFR, PRALB, TRF ####[place] [address] .neuabs on Neutrophil, Absolute 7.90 2.25-8.10 10 3/mcL Normal 8 [facility] ([place]) (84276) Comment: Performed By: #### CBC, ADIF F, ANEU, APTT, PRO, BMP, GFR, PRALB, TRF ####[address] [address] .gfr on 2018-10-27 GFR >60 Normal 8 [facility] ([place]) (26671) Comment: Result Comment: GFR Populati on mean for , Non- Americans Ages 20-29 = 116 m L/min/1.73 sq.m. Ages 30-39 = 107 mL/min/1.73 sq.m. Ages 40-49 = 99 mL/min /1.73 sq.m. Ages 50-59 = 93 mL/min/1.73 sq.m. Ages 60-69 = 85 mL/min/1.73 sq.m. Ages 70+ = 75 mL/min/1.73 sq.m.Chronic Kidney Disease: Less than 60 mL/min/1.73 square metersEnd Stage Renal Disease: Less than 15 mL/min /1.73 square meters Performed By: #### CBC, ADIF F, ANEU, APTT, PRO, BMP, GFR, PRALB, TRF ####[address] [address] GFR Non- >60 Normal 10-27 [facility] ([place]) (80212) Comment: Result Comment: GFR Populati on mean for , Non- Americans Ages 20-29 = 116 m L/min/1.73 sq.m. Ages 30-39 = 107 mL/min/1.73 sq.m. Ages 40-49 = 99 mL/min /1.73 sq.m. Ages 50-59 = 93 mL/min/1.73 sq.m. Ages 60-69 = 85 mL/min/1.73 sq.m. Ages 70+ = 75 mL/min/1.73 sq.m.Chronic Kidney Disease: Less than 60 mL/min/1.73 square metersEnd Stage Renal Disease: Less than 15 mL/min /1.73 square meters Performed By: #### CBC, ADIF F, ANEU, APTT, PRO, BMP, GFR, PRALB, TRF ####[address] [address] .auto diff on 10-27 Ammonia mass conc 0.60 0.09-1.40 10 3/mcL Normal 10-27-2018 A [facility] (P) [facility] [place] ([place]) ([id number]) Comment: Performed By: #### CBC, ADIF F, ANEU, APTT, PRO, BMP, GFR, PRALB, TRF ####[place] [address] Basophils Auto #/vol 0.20 0.00-0.27 10 3/mcL Normal 8 [facility] (d) [facility] [place] ([place]) (29594) Comment: Performed By: #### CBC, ADIF F, ANEU, APTT, PRO, BMP, GFR, PRALB, TRF ####[address] [address] Basophils/100 WBC Auto (d) 1.5 0.0-2.5 % Normal 1 12-28-2017 [facility]) (0000 0) Comment: Performed By: #### CBC, ADIF F, ANEU, APTT, PRO, BMP, GFR, PRALB, TRF ####[address] [address] Eosinophils Auto #/vol 0.30 0.00-0.65 10 3/mcL Normal [address] [place] [address]) ([id number]) Comment: Performed By: #### CBC, ADIF F, ANEU, APTT, PRO, BMP, GFR, PRALB, TRF ####[address] [address] Eosinophils/100 WBC Auto 2.4 0.0-6.0 % Normal 10-27 [facility]) (45776) Comment: Performed By: #### CBC, ADIF F, ANEU, APTT, PRO, BMP, GFR, PRALB, TRF ####[address] [address] Lymphocytes Auto #/vol 1.60 0.90-4.32 10 3/mcL Normal [address] [place] [address]) ([id number]) Comment: Performed By: #### CBC, ADIF F, ANEU, APTT, PRO, BMP, GFR, PRALB, TRF ####[address] [address] Lymphocytes/100 WBC Auto 14.9 20.0-40.0 % Low 10-27 [facility]) (12668) Comment: Performed By: #### CBC, ADIF F, ANEU, APTT, PRO, BMP, GFR, PRALB, TRF ####[address] [address] Monocytes/100 WBC Auto (Bld) 6.0 2.0-13.0 % Normal 1 12-28-2017 [facility] ([place]) (81190) Comment: Performed By: #### CBC, ADIF F, ANEU, APTT, PRO, BMP, GFR, PRALB, TRF ####[address] [address] Neutrophils/100 WBC Auto 75.2 50.0-75.0 % High 10-27 [facility] (Bld) [facility] [place] ([place]) (20253) Comment: Performed By: #### CBC, ADIF F, ANEU, APTT, PRO, BMP, GFR, PRALB, TRF ####[address] [address] cbc on 2018-10-26 Erythrocyte distribution 15.8 11.5-15.5 % High 10-26 [facility] width Auto Ratio (RBC) ([place]) (50138) Comment: Performed By: #### CBC, ADIF F, ANEU, APTT, PRO, BMP, GFR, PRALB, TRF ####[address] [address] Hematocrit Auto Volume 26.4 34.0-46.0 % Low 018 [facility] Fraction (Bld) ([place]) (21949) Comment: Performed By: #### CBC, ADIF F, ANEU, APTT, PRO, BMP, GFR, PRALB, TRF ####[address] [address] Hemoglobin mass conc (Bld) 8.7 12.0-16.0 G/dL Low [facility] ([place]) (0000 0) Comment: Performed By: #### CBC, ADIF F, ANEU, APTT, PRO, BMP, GFR, PRALB, TRF ####[address] [address] MCH Auto Entitic mass 28.3 27.0-33.0 pg Normal 10-26-20 18 [facility] ([facility]BC) ([place]) (0000 0) Comment: Performed By: #### CBC, ADIF F, ANEU, APTT, PRO, BMP, GFR, PRALB, TRF ####[place] [address] MCHC Auto mass conc 33.0 32.0-36.0 G/dL Normal 10-26-2018 [facility] ([facility]BC) ([place]) (0000 0) Comment: Performed By: #### CBC, ADIF F, ANEU, APTT, PRO, BMP, GFR, PRALB, TRF ####[place] [address] MCV Auto Entitic volume 85.8 80.0-99.0 fL Normal 2017 [facility] ([facility]BC) ([place]) (0000 0) Comment: Performed By: #### CBC, ADIF F, ANEU, APTT, PRO, BMP, GFR, PRALB, TRF ####[place] [address] Platelet mean volume Auto 7.7 6.6-10.5 fL Normal 10-13 [facility] Entitic volume (Bld) ([place]) ([id number]) Comment: Performed By: #### CBC, ADIF F, ANEU, APTT, PRO, BMP, GFR, PRALB, TRF ####[place] [address] Platelets Auto #/vol 148 150-450 10 3/mcL Low 8 [facility] (Bld) ([place]) (0000 0) Comment: Performed By: #### CBC, ADIF F, ANEU, APTT, PRO, BMP, GFR, PRALB, TRF ####[place] [address] RBC Auto #/vol (Bld) 3.08 4.10-5.30 10 6/mcL Low 8 [facility] ([place]) (0000 0) Comment: Performed By: #### CBC, ADIF F, ANEU, APTT, PRO, BMP, GFR, PRALB, TRF ####[place] [address] WBC Auto #/vol 9.70 4.50-10.80 10 3/mcL Normal 10-26-2018 [facility] (d) [facility] ([place]) ([id number]) Comment: Performed By: #### CBC, ADIF F, ANEU, APTT, PRO, BMP, GFR, PRALB, TRF ####[address] [address] bmp on 2018-10-26 Creatinine mass conc 0.73 0.50-1.20 mg/dL Normal 8 [facility] ([place]) (0000 0) Comment: Performed By: #### CBC, ADIF F, ANEU, APTT, PRO, BMP, GFR, PRALB, TRF ####[place] [address] Urea nitrogen/Creatinine 19.2 10.0-22.0 ratio Normal 10-26 [facility] ([place]) ([id number]) Comment: Performed By: #### CBC, ADIF F, ANEU, APTT, PRO, BMP, GFR, PRALB, TRF ####[address] [address] Calcium mass conc 7.8 8.4-10.1 mg/dL Low 10-26-2018 [facility] ([place]) ([id number]) Comment: Performed By: #### CBC, ADIF F, ANEU, APTT, PRO, BMP, GFR, PRALB, TRF ####[address] [address] Chloride molar conc 104 98-110 mEq/L Normal 10-26-2018 [facility] ([place]) ([id number]) Comment: Performed By: #### CBC, ADIF F, ANEU, APTT, PRO, BMP, GFR, PRALB, TRF ####[address] [address] CO2 molar conc 29 22-32 mEq/L Normal 10-26-2018 [facility] ([place]) ([id number]) Comment: Performed By: #### CBC, ADIF F, ANEU, APTT, PRO, BMP, GFR, PRALB, TRF ####[address] [address] Electrolyte Balance 6.0 4.0-15.0 mEq/L Normal 10-26-2018 [facility] ([place]) (0000 0) Comment: Performed By: #### CBC, ADIF F, ANEU, APTT, PRO, BMP, GFR, PRALB, TRF ####[place] [address] Glucose mass conc 97 82-115 mg/dL Normal 10-26-2018 [facility] ([place]) ([id number]) Comment: Performed By: #### CBC, ADIF F, ANEU, APTT, PRO, BMP, GFR, PRALB, TRF ####[place] [address] Potassium molar conc 3.7 3.5-5.0 mEq/L Normal 8 [facility] ([place]) (0000 0) Comment: Performed By: #### CBC, ADIF F, ANEU, APTT, PRO, BMP, GFR, PRALB, TRF ####[place] [address] Sodium molar conc 139 136-145 mEq/L Normal 10-26-2018 [facility] ([place]) ([id number]) Comment: Performed By: #### CBC, ADIF F, ANEU, APTT, PRO, BMP, GFR, PRALB, TRF ####[place] [address] Urea nitrogen mass conc 14.0 8.0-22.0 mg/dL Normal 2017 [facility] ([place]) ([id number]) Comment: Performed By: #### CBC, ADIF F, ANEU, APTT, PRO, BMP, GFR, PRALB, TRF ####[place] [address] .neuabs on Neutrophil, Absolute 7.60 2.25-8.10 10 3/mcL Normal 8 [facility] ([place]) ([id number]) Comment: Performed By: #### CBC, ADIF F, ANEU, APTT, PRO, BMP, GFR, PRALB, TRF ####[place] [id number] [place] [address] .gfr on 2018-10-26 GFR Non- >60 Normal 10-26 [facility] ([place]) ([id number]) Comment: Result Comment: GFR Populati on mean for , Non- Americans Ages 20-29 = 116 m L/min/1.73 sq.m. Ages 30-39 = 107 mL/min/1.73 sq.m. Ages 40-49 = 99 mL/min /1.73 sq.m. Ages 50-59 = 93 mL/min/1.73 sq.m. Ages 60-69 = 85 mL/min/1.73 sq.m. Ages 70+ = 75 mL/min/1.73 sq.m.Chronic Kidney Disease: Less than 60 mL/min/1.73 square metersEnd Stage Renal Disease: Less than 15 mL/min /1.73 square meters Performed By: #### CBC, ADIF F, ANEU, APTT, PRO, BMP, GFR, PRALB, TRF ####[place] [id number] [place] [address] GFR >60 Normal [facility] ([place]) ([id number]) Comment: Result Comment: GFR Populati on mean for , Non- Americans Ages 20-29 = 116 m L/min/1.73 sq.m. Ages 30-39 = 107 mL/min/1.73 sq.m. Ages 40-49 = 99 mL/min /1.73 sq.m. Ages 50-59 = 93 mL/min/1.73 sq.m. Ages 60-69 = 85 mL/min/1.73 sq.m. Ages 70+ = 75 mL/min/1.73 sq.m.Chronic Kidney Disease: Less than 60 mL/min/1.73 square metersEnd Stage Renal Disease: Less than 15 mL/min /1.73 square meters Performed By: #### CBC, ADIF F, ANEU, APTT, PRO, BMP, GFR, PRALB, TRF ####[place] [id number] [place] [address] .auto diff on 10-26 Ammonia mass conc 0.60 0.09-1.40 10 3/mcL Normal 10-26-2018 A [facility] ([facility] ([place]) ([id number]) Comment: Performed By: #### CBC, ADIF F, ANEU, APTT, PRO, BMP, GFR, PRALB, TRF ####[address] [address] Basophils Auto #/vol 0.00 0.00-0.27 10 3/mcL Normal 8 [facility]) ([id number]) Comment: Performed By: #### CBC, ADIF F, ANEU, APTT, PRO, BMP, GFR, PRALB, TRF ####[address] [address] Basophils/100 WBC Auto ([facility]) 0.2 0.0-2.5 % Normal 1 12-27-2017 [facility]) (0000 0) Comment: Performed By: #### CBC, ADIF F, ANEU, APTT, PRO, BMP, GFR, PRALB, TRF ####[address] [address] Eosinophils Auto #/vol 0.20 0.00-0.65 10 3/mcL Normal 018 [facility]) ([id number]) Comment: Performed By: #### CBC, ADIF F, ANEU, APTT, PRO, BMP, GFR, PRALB, TRF ####[address] [address] Eosinophils/100 WBC Auto 2.0 0.0-6.0 % Normal 10-26 [facility]) (72254) Comment: Performed By: #### CBC, ADIF F, ANEU, APTT, PRO, BMP, GFR, PRALB, TRF ####[address] [address] Lymphocytes Auto #/vol 1.30 0.90-4.32 10 3/mcL Normal 018 [facility]) ([id number]) Comment: Performed By: #### CBC, ADIF F, ANEU, APTT, PRO, BMP, GFR, PRALB, TRF ####[address] [address] Lymphocytes/100 WBC Auto 13.4 20.0-40.0 % Low 10-26 [facility] ([facility]) [facility] [place] ([place]) ([id number]) Comment: Performed By: #### CBC, ADIF F, ANEU, APTT, PRO, BMP, GFR, PRALB, TRF ####[address] [address] Monocytes/100 WBC Auto (Bld) 6.4 2.0-13.0 % Normal 1 12-27-2017 [facility] ([place]) ([id number]) Comment: Performed By: #### CBC, ADIF F, ANEU, APTT, PRO, BMP, GFR, PRALB, TRF ####[address] [address] Neutrophils/100 WBC Auto 78.0 50.0-75.0 % High 10-26 [facility] ([facility]) [facility] [place] ([place] (03701) Comment: Performed By: #### CBC, ADIF F, ANEU, APTT, PRO, BMP, GFR, PRALB, TRF ####[address] [address] hh on 2018-10-25 Hematocrit Auto Volume 25.3 34.0-46.0 % Low 10-25- 018 [facility] Fraction (Bld) ([place]) ([id number]) Comment: Performed By: #### CBC, ADIF F, ANEU, APTT, PRO, BMP, GFR, PRALB, TRF ####[address] [address] Hemoglobin mass conc (Bld) 8.4 12.0-16.0 G/dL Low [facility] ([place]) (0000 0) Comment: Performed By: #### CBC, ADIF F, ANEU, APTT, PRO, BMP, GFR, PRALB, TRF ####[address] [address] bmp on 2018-10-25 Creatinine mass conc 0.66 0.50-1.20 mg/dL Normal 8 [facility] ([place]) (0000 0) Comment: Performed By: #### CBC, ADIF F, ANEU, APTT, PRO, BMP, GFR, PRALB, TRF ####[place] [address] Urea nitrogen/Creatinine 18.2 10.0-22.0 ratio Normal 10-25 [facility] ([place]) ([id number]) Comment: Performed By: #### CBC, ADIF F, ANEU, APTT, PRO, BMP, GFR, PRALB, TRF ####[place] [address] Calcium mass conc 7.6 8.4-10.1 mg/dL Low 10-25-2018 [facility] ([place]) ([id number]) Comment: Performed By: #### CBC, ADIF F, ANEU, APTT, PRO, BMP, GFR, PRALB, TRF ####[place] [address] Chloride molar conc 107 98-110 mEq/L Normal 10-25-2018 [facility] ([place]) (63931) Comment: Performed By: #### CBC, ADIF F, ANEU, APTT, PRO, BMP, GFR, PRALB, TRF ####[place] [address] CO2 molar conc 28 22-32 mEq/L Normal 10-25-2018 [facility] ([place]) ([id number]) Comment: Performed By: #### CBC, ADIF F, ANEU, APTT, PRO, BMP, GFR, PRALB, TRF ####[place] [address] Electrolyte Balance 5.0 4.0-15.0 mEq/L Normal 10-25-2018 [facility] ([place]) (0000 0) Comment: Performed By: #### CBC, ADIF F, ANEU, APTT, PRO, BMP, GFR, PRALB, TRF ####[place] [address] Glucose mass conc 118 82-115 mg/dL High 10-25-2018 [facility] ([place]) (46892) Comment: Performed By: #### CBC, ADIF F, ANEU, APTT, PRO, BMP, GFR, PRALB, TRF ####[place] [id number] [place] [address] Potassium molar conc 4.0 3.5-5.0 mEq/L Normal 8 [facility] ([place]) (0000 0) Comment: Performed By: #### CBC, ADIF F, ANEU, APTT, PRO, BMP, GFR, PRALB, TRF ####[place] [id number] [place] [address] Sodium molar conc 140 136-145 mEq/L Normal 10-25-2018 [facility] ([place]) ([id number]) Comment: Performed By: #### CBC, ADIF F, ANEU, APTT, PRO, BMP, GFR, PRALB, TRF ####[place] [id number] [place] [address] Urea nitrogen mass conc 12.0 8.0-22.0 mg/dL Normal 2017 [facility] ([place]) (58126) Comment: Performed By: #### CBC, ADIF F, ANEU, APTT, PRO, BMP, GFR, PRALB, TRF ####[address] [address] .gfr on 2018-10-25 GFR >60 Normal 8 [facility] ([place]) ([id number]) Comment: Result Comment: GFR Populati on mean for , Non- Americans Ages 20-29 = 116 m L/min/1.73 sq.m. Ages 30-39 = 107 mL/min/1.73 sq.m. Ages 40-49 = 99 mL/min /1.73 sq.m. Ages 50-59 = 93 mL/min/1.73 sq.m. Ages 60-69 = 85 mL/min/1.73 sq.m. Ages 70+ = 75 mL/min/1.73 sq.m.Chronic Kidney Disease: Less than 60 mL/min/1.73 square metersEnd Stage Renal Disease: Less than 15 mL/min /1.73 square meters Performed By: #### CBC, ADIF F, ANEU, APTT, PRO, BMP, GFR, PRALB, TRF ####[place] [id number] [place] [address] GFR Non- >60 Normal 10-25 [facility] ([place]) ([id number]) Comment: Result Comment: GFR Populati on mean for , Non- Americans Ages 20-29 = 116 m L/min/1.73 sq.m. Ages 30-39 = 107 mL/min/1.73 sq.m. Ages 40-49 = 99 mL/min /1.73 sq.m. Ages 50-59 = 93 mL/min/1.73 sq.m. Ages 60-69 = 85 mL/min/1.73 sq.m. Ages 70+ = 75 mL/min/1.73 sq.m.Chronic Kidney Disease: Less than 60 mL/min/1.73 square metersEnd Stage Renal Disease: Less than 15 mL/min /1.73 square meters Performed By: #### CBC, ADIF F, ANEU, APTT, PRO, BMP, GFR, PRALB, TRF ####[place] [id number] [place] [address] xr fluoro 1-2 hrs tech time on 2018-10-24 XR FLUORO 1-2 ORIGINALTechnical Details: Normal 10-24-2018 [facility] TECH TIME Tech Time - 804am-705pm; [facility] [place] ([place]) C-Arm # - 7; Total Dose - (06473) 180.10 mGy; Images - 13; Warehouse Analyst - Keny Miller; History - image t9-s1; Fluoro Time - 1 min 39 sec; Fluoroscopic images were archived and demonstrate: 12 intraoperative images were obtained. Anterior fusion plate noted at L5-S1. There is revision of the posterior fusion hardware. Refer to surgical report. Interpreted By: Aydin Claytonreliminary Report By: Aydin Clayton MDElectronically Signed By: Aydin Clayton MD Dictated Date: 10/24/2018 2:29:20 AM Prelim Date: 10/24/2018 2:29:20 AM Sign Date: 10/24/2018 2:31:13 AM xr chest 1 view on 2018-10-24 XR CHEST 1 VIEW ORIGINALXR CHEST 1 VIEW Normal 10-24-2018 [facility] CLINICAL STATEMENT: [place] ([place]) hypoxia. COMPARISON: ([id number]) 10/23/2018 FINDINGS: Endotracheal tube terminates 4.4 cm above the jericho. Enteric tube courses into the upper abdomen. Enlarged cardiac silhouette noted. Atelectasis or other consolidation obscures the LEFT diaphragm. There is no pneumothorax. Small pleural fusions excluded. There are extensive surgical changes in the spine. IMPRESSION: Atelectasis or other consolidation obscures the LEFT diaphragm Support devices, as above Interpreted By: Aydin Claytonreliminary Report By: Aydin Clayton MDElectronically Signed By: Aydin Clayton MD Dictated Date: 10/24/2018 7:31:41 AM Prelim Date: 10/24/2018 7:31:41 AM Sign Date: 10/24/2018 7:34:29 AM xr abdomen ap on 30-10-12 XR ABDOMEN AP ORIGINALXR ABDOMEN AP Normal 10-13 [facility] CLINICAL STATEMENT: [place] [facility] [place] placement. COMPARISON: ([id number]) 10/23/2018 FINDINGS: The enteric tube terminates near the level of the duodenal bulb. Extensive surgical changes noted in the spine with associated skin arina. No air distended bowel segments visualized. Chest is not evaluated in detail. There are surgical clips in the pelvis. IMPRESSION: Enteric tube terminates at the level of the duodenal bulb Interpreted By: Aydin Clayton MDPreliminary Report By: Aydin Clayton MDElectronically Signed By: Aydin Clayton MD Dictated Date: 10/24/2018 6:57:32 AM Prelim Date: 10/24/2018 6:57:32 AM Sign Date: 10/24/2018 6:58:36 AM cbc on 2018-10-24 Erythrocyte distribution 15.7 11.5-15.5 % High 10-24 [facility] width Auto Ratio (RBC) ([place]) ([id number]) Comment: Performed By: #### CBC, ADIF F, ANEU, APTT, PRO, BMP, GFR, PRALB, TRF ####[place] [address] Hematocrit Auto Volume 30.1 34.0-46.0 % Low 018 [facility] Fraction (Bld) ([place]) (40929) Comment: Performed By: #### CBC, ADIF F, ANEU, APTT, PRO, BMP, GFR, PRALB, TRF ####[address] [address] Hemoglobin mass conc 10.1 12.0-16.0 G/dL Low 8 [facility] (Bld) ([place]) (0000 0) Comment: Performed By: #### CBC, ADIF F, ANEU, APTT, PRO, BMP, GFR, PRALB, TRF ####[address] [address] MCH Auto Entitic mass 28.4 27.0-33.0 pg Normal 10-24-20 18 [facility] (RBC) ([place]) (0000 0) Comment: Performed By: #### CBC, ADIF F, ANEU, APTT, PRO, BMP, GFR, PRALB, TRF ####[address] [address] MCHC Auto mass conc 33.4 32.0-36.0 G/dL Normal 10-24-2018 [facility] (RBC) ([place]) (0000 0) Comment: Performed By: #### CBC, ADIF F, ANEU, APTT, PRO, BMP, GFR, PRALB, TRF ####[address] [address] MCV Auto Entitic volume 84.8 80.0-99.0 fL Normal 2017 [facility] (RBC) ([place]) (0000 0) Comment: Performed By: #### CBC, ADIF F, ANEU, APTT, PRO, BMP, GFR, PRALB, TRF ####[address] [address] Platelet mean volume Auto 8.0 6.6-10.5 fL Normal 10-13 [facility] Entitic volume (Bld) ([place]) ([id number]) Comment: Performed By: #### CBC, ADIF F, ANEU, APTT, PRO, BMP, GFR, PRALB, TRF ####[address] [address] Platelets Auto #/vol 180 150-450 10 3/mcL Normal 8 [facility]) (15003) Comment: Performed By: #### CBC, ADIF F, ANEU, APTT, PRO, BMP, GFR, PRALB, TRF ####[place] [address] RBC Auto #/vol ([facility]) 3.55 4.10-5.30 10 6/mcL Low 8 [facility] ([place]) (0000 0) Comment: Performed By: #### CBC, ADIF F, ANEU, APTT, PRO, BMP, GFR, PRALB, TRF ####[place] [address] WBC Auto #/vol 9.70 4.50-10.80 10 3/mcL Normal 10-24-2018 [facility] ([place]) ([id number]) Comment: Performed By: #### CBC, ADIF F, ANEU, APTT, PRO, BMP, GFR, PRALB, TRF ####[place] [address] bmp on 2018-10-24 Creatinine mass conc 0.67 0.50-1.20 mg/dL Normal 8 [facility] ([place]) (0000 0) Comment: Performed By: #### CBC, ADIF F, ANEU, APTT, PRO, BMP, GFR, PRALB, TRF ####[place] [address] Urea nitrogen/Creatinine mass 26.9 10.0-22.0 ratio High 10-24-2018 [facility] ([place]) (10693) Comment: Performed By: #### CBC, ADIF F, ANEU, APTT, PRO, BMP, GFR, PRALB, TRF ####[place] [address] Calcium mass conc 7.3 8.4-10.1 mg/dL Low 10-24-2018 [facility] ([place]) ([id number]) Comment: Performed By: #### CBC, ADIF F, ANEU, APTT, PRO, BMP, GFR, PRALB, TRF ####[place] [address] Chloride molar conc 112 98-110 mEq/L High 10-24-2018 [facility] ([place]) (88919) Comment: Performed By: #### CBC, ADIF F, ANEU, APTT, PRO, BMP, GFR, PRALB, TRF ####[place] [address] CO2 molar conc 24 22-32 mEq/L Normal 10-24-2018 [facility] ([place]) (59657) Comment: Performed By: #### CBC, ADIF F, ANEU, APTT, PRO, BMP, GFR, PRALB, TRF ####[place] [address] Electrolyte Balance 3.0 4.0-15.0 mEq/L Low 10-24-2018 [facility] ([place]) (10090) Comment: Performed By: #### CBC, ADIF F, ANEU, APTT, PRO, BMP, GFR, PRALB, TRF ####[place] [address] Glucose mass conc 133 82-115 mg/dL High 10-24-2018 [facility] ([place]) (84641) Comment: Performed By: #### CBC, ADIF F, ANEU, APTT, PRO, BMP, GFR, PRALB, TRF ####[place] [address] Potassium molar conc 4.3 3.5-5.0 mEq/L Normal 8 [facility] ([place]) (0000 0) Comment: Performed By: #### CBC, ADIF F, ANEU, APTT, PRO, BMP, GFR, PRALB, TRF ####[place] [address] Sodium molar conc 139 136-145 mEq/L Normal 10-24-2018 [facility] ([place]) ([id number]) Comment: Performed By: #### CBC, ADIF F, ANEU, APTT, PRO, BMP, GFR, PRALB, TRF ####[place] [id number] [place] [address] Urea nitrogen mass conc 18.0 8.0-22.0 mg/dL Normal 2017 [facility] ([place]) (05156) Comment: Performed By: #### CBC, ADIF F, ANEU, APTT, PRO, BMP, GFR, PRALB, TRF ####[address] [address] .neuabs on Neutrophil, Absolute 8.10 2.25-8.10 10 3/mcL Normal 8 [facility] ([place]) ([id number]) Comment: Performed By: #### CBC, ADIF F, ANEU, APTT, PRO, BMP, GFR, PRALB, TRF ####[address] [address] .gfr on 2018-10-24 GFR Non- >60 Normal 10-24 [facility] ([place]) (88242) Comment: Result Comment: GFR Populati on mean for , Non- Americans Ages 20-29 = 116 m L/min/1.73 sq.m. Ages 30-39 = 107 mL/min/1.73 sq.m. Ages 40-49 = 99 mL/min /1.73 sq.m. Ages 50-59 = 93 mL/min/1.73 sq.m. Ages 60-69 = 85 mL/min/1.73 sq.m. Ages 70+ = 75 mL/min/1.73 sq.m.Chronic Kidney Disease: Less than 60 mL/min/1.73 square metersEnd Stage Renal Disease: Less than 15 mL/min /1.73 square meters Performed By: #### CBC, ADIF F, ANEU, APTT, PRO, BMP, GFR, PRALB, TRF ####[address] [address] GFR >60 Normal 8 [facility] ([place]) (16952) Comment: Result Comment: GFR Populati on mean for , Non- Americans Ages 20-29 = 116 m L/min/1.73 sq.m. Ages 30-39 = 107 mL/min/1.73 sq.m. Ages 40-49 = 99 mL/min /1.73 sq.m. Ages 50-59 = 93 mL/min/1.73 sq.m. Ages 60-69 = 85 mL/min/1.73 sq.m. Ages 70+ = 75 mL/min/1.73 sq.m.Chronic Kidney Disease: Less than 60 mL/min/1.73 square metersEnd Stage Renal Disease: Less than 15 mL/min /1.73 square meters Performed By: #### CBC, ADIF F, ANEU, APTT, PRO, BMP, GFR, PRALB, TRF ####[address] [address] .auto diff on 10-24 Ammonia mass conc 0.70 0.09-1.40 10 3/mcL Normal 10-24-2018 A [facility] () [facility] [place] ([place]) ([id number]) Comment: Performed By: #### CBC, ADIF F, ANEU, APTT, PRO, BMP, GFR, PRALB, TRF ####[address] [address] Basophils Auto #/vol 0.00 0.00-0.27 10 3/mcL Normal 8 [facility] ([facility]) [facility] [place] ([place]) (98931) Comment: Performed By: #### CBC, ADIF F, ANEU, APTT, PRO, BMP, GFR, PRALB, TRF ####[address] [address] Basophils/100 WBC Auto (d) 0.3 0.0-2.5 % Normal 1 12-25-2017 [facility] ([place]) (0000 0) Comment: Performed By: #### CBC, ADIF F, ANEU, APTT, PRO, BMP, GFR, PRALB, TRF ####[address] [address] Eosinophils Auto #/vol 0.00 0.00-0.65 10 3/mcL Normal [address] [place] [address]) ([id number]) Comment: Performed By: #### CBC, ADIF F, ANEU, APTT, PRO, BMP, GFR, PRALB, TRF ####[address] [address] Eosinophils/100 WBC Auto 0.0 0.0-6.0 % Normal 10-24 [facility]) (99262) Comment: Performed By: #### CBC, ADIF F, ANEU, APTT, PRO, BMP, GFR, PRALB, TRF ####[address] [address] Lymphocytes Auto #/vol 0.80 0.90-4.32 10 3/mcL Low [address] [place] [address]) ([id number]) Comment: Performed By: #### CBC, ADIF F, ANEU, APTT, PRO, BMP, GFR, PRALB, TRF ####[address] [address] Lymphocytes/100 WBC Auto (Bld) 8.2 20.0-40.0 % Low 10-24-2018 [facility]) ([id number]) Comment: Performed By: #### CBC, ADIF F, ANEU, APTT, PRO, BMP, GFR, PRALB, TRF ####[address] [address] Monocytes/100 WBC Auto (Bld) 7.5 2.0-13.0 % Normal 1 12-25-2017 [facility] ([place]) (31992) Comment: Performed By: #### CBC, ADIF F, ANEU, APTT, PRO, BMP, GFR, PRALB, TRF ####[address] [address] Neutrophils/100 WBC Auto 84.0 50.0-75.0 % High 10-24 [facility]) (29972) Comment: Performed By: #### CBC, ADIF F, ANEU, APTT, PRO, BMP, GFR, PRALB, TRF ####[facility] [place] [address] xr chest 1 view on 2018-10-23 XR CHEST 1 VIEW ORIGINALXR CHEST 1 VIEW Normal 10-23-2018 [facility] PORTABLE AP UPRIGHT DATE [facility] [place] ([place]) AND TIME: 10/23/2018 8:58 ([id number]) PM CLINICAL STATEMENT: ETT placement COMPARISON: None FINDINGS: The cardiomediastinal contours are normal allowing for AP projection and limited depth of inspiration. Endotracheal tube is present with tip 4 cm above the jericho. Enteric tube extends to the abdomen with distal tip extending off the inferior border of the image. There is no consolidation, vascular congestion, pleural effusion, or pneumothorax. Minimal thickening of the minor fissure is present. Spinal fixation hardware is present in the thoracolumbar spine. IMPRESSION: Life support devices are in good position. Interpreted By: Uriel Vergara MDPreliminary Report By: Uriel Vergara MDElectronically Signed By: Uriel Vergara MD Dictated Date: 10/23/2018 9:26:09 PM Prelim Date: 10/23/2018 9:26:09 PM Sign Date: 10/23/2018 9:36:55 PM xr abdomen ap on 30-10-11 XR ABDOMEN AP ORIGINALPortable supine Normal [facility] abdomen 10/23/2018 2058 [facility] [place] ([place]) hours CLINICAL STATEMENT: ([id number]) Tube placement Enteric tube is seen within the esophagus. Paraspinal rods and screws are present in the lower thoracic/lumbar spine extending to the sacrum and pelvis with overlying skin arina and drain. Lumbar laminectomy defect is present. Bowel gas pattern is unremarkable. IMPRESSION: Enteric tube terminates in the distal esophagus, suggest advancement. Interpreted By: Uriel Vergara MDPreliminary Report By: Uriel Vergara MDElectronically Signed By: Uriel Vergara MD Dictated Date: 10/23/2018 9:44:26 PM Prelim Date: 10/23/2018 9:44:26 PM Sign Date: 10/23/2018 9:46:43 PM tabs on 2018-10-23 Antibody Screen Tango Negative ABSC Normal 10-13 [facility] ([place]) (0000 0) Comment: Performed By: #### CBC, ADIF F, ANEU, APTT, PRO, BMP, GFR, PRALB, TRF ####[address] [address] tabo on 2018-10-23 ABO/Rh Interp AB POS Invalid Interpretation Cod e 10-23-2018 [facility] ([place]) ([id number]) Comment: Performed By: #### ABORH, AN TIS ####[place] [address] rbc (product) on 30-10-11 RBC Auto #/vol RBC Ready for Pickup Normal 10-13 [facility] ([facility]) [facility] [place] ([place]) ([id number]) Comment: Performed By: #### CBC, ADIF F, ANEU, APTT, PRO, BMP, GFR, PRALB, TRF ####[place] [address] naor on 2018-10-23 Sodium molar conc 137 136-145 mEq/L Normal 10-23-2018 A [facility] ([place]) ([id number]) Comment: Performed By: #### CBC, ADIF F, ANEU, APTT, PRO, BMP, GFR, PRALB, TRF ####[place] [address] Sodium molar conc 138 136-145 mEq/L Normal 10-23-2018 A [facility] ([place]) ([id number]) Comment: Performed By: #### CBC, ADIF F, ANEU, APTT, PRO, BMP, GFR, PRALB, TRF ####[place] [address] Sodium molar conc 136 136-145 mEq/L Normal 10-23-2018 [facility] ([place]) (27881) Comment: Performed By: #### CBC, ADIF F, ANEU, APTT, PRO, BMP, GFR, PRALB, TRF ####[place] [address] Sodium molar conc 138 136-145 mEq/L Normal 10-23-2018 [facility] ([place]) (55321) Comment: Performed By: #### CBC, ADIF F, ANEU, APTT, PRO, BMP, GFR, PRALB, TRF ####[address] [address] mgor on 2018-10-23 Magnesium mass conc 2.1 1.6-2.4 mg/dL Normal 10-23-2018 [facility] ([place]) (0000 0) Comment: Performed By: #### CBC, ADIF F, ANEU, APTT, PRO, BMP, GFR, PRALB, TRF ####[place] [address] Magnesium mass conc 2.2 1.6-2.4 mg/dL Normal 10-23-2018 [facility] ([place]) (0000 0) Comment: Performed By: #### CBC, ADIF F, ANEU, APTT, PRO, BMP, GFR, PRALB, TRF ####[address] [address] Magnesium mass conc 1.8 1.6-2.4 mg/dL Normal 10-23-2018 [facility] ([place]) (0000 0) Comment: Performed By: #### CBC, ADIF F, ANEU, APTT, PRO, BMP, GFR, PRALB, TRF ####[address] [address] kor on 2018-10-23 Potassium molar conc 4.3 3.5-5.0 mEq/L Normal 8 [facility] ([place]) (0000 0) Comment: Performed By: #### CBC, ADIF F, ANEU, APTT, PRO, BMP, GFR, PRALB, TRF ####[place] [address] Potassium molar conc 3.4 3.5-5.0 mEq/L Low 8 [facility] ([place]) (90888) Comment: Performed By: #### CBC, ADIF F, ANEU, APTT, PRO, BMP, GFR, PRALB, TRF ####[place] [address] Potassium molar conc 3.6 3.5-5.0 mEq/L Normal 8 [facility] ([place]) (0000 0) Comment: Performed By: #### CBC, ADIF F, ANEU, APTT, PRO, BMP, GFR, PRALB, TRF ####[place] [address] Potassium molar conc 3.3 3.5-5.0 mEq/L Low 8 [facility] ([place]) (21303) Comment: Performed By: #### CBC, ADIF F, ANEU, APTT, PRO, BMP, GFR, PRALB, TRF ####[address] [address] hgbor on 2018-10-23 Hemoglobin mass conc 10.7 12.0-16.0 G/dL Low 8 [facility] ([facility] ([place]) (0000 0) Comment: Performed By: #### CBC, ADIF F, ANEU, APTT, PRO, BMP, GFR, PRALB, TRF ####[place] [address] Hemoglobin mass conc (Bld) 9.4 12.0-16.0 G/dL Low [facility] ([place]) (0000 0) Comment: Performed By: #### CBC, ADIF F, ANEU, APTT, PRO, BMP, GFR, PRALB, TRF ####[place] [address] Hemoglobin mass conc 11.5 12.0-16.0 G/dL Low 8 [facility] ([facility]) ([place]) (0000 0) Comment: Performed By: #### CBC, ADIF F, ANEU, APTT, PRO, BMP, GFR, PRALB, TRF ####[place] [address] Hemoglobin mass conc 11.7 12.0-16.0 G/dL Low 8 [facility] ([facility] ([place]) (0000 0) Comment: Performed By: #### CBC, ADIF F, ANEU, APTT, PRO, BMP, GFR, PRALB, TRF ####[address] [address] hctor on 2018-10-23 Hematocrit Auto Volume 31.0 37.0-47.0 % Low 018 [facility] Fraction (Bld) ([place]) ([address]) Comment: Performed By: #### CBC, ADIF F, ANEU, APTT, PRO, BMP, GFR, PRALB, TRF ####[place] [address] Hematocrit Auto Volume 28.0 37.0-47.0 % Low 018 [facility] Fraction (Bld) ([place]) ([address]) Comment: Performed By: #### CBC, ADIF F, ANEU, APTT, PRO, BMP, GFR, PRALB, TRF ####[place] [address] Hematocrit Auto Volume 34.0 37.0-47.0 % Low 018 [facility] Fraction (Bld) ([place]) ([address]) Comment: Performed By: #### CBC, ADIF F, ANEU, APTT, PRO, BMP, GFR, PRALB, TRF ####[place] [address] Hematocrit Auto Volume 34.0 37.0-47.0 % Low 018 [facility] Fraction (Bld) ([place]) ([address]) Comment: Performed By: #### CBC, ADIF F, ANEU, APTT, PRO, BMP, GFR, PRALB, TRF ####[place] [address] gluor on 2018-10-23 Glucose mass conc 170 82-115 mg/dL High 10-23-2018 [facility] ([place]) ([id number]) Comment: Performed By: #### CBC, ADIF F, ANEU, APTT, PRO, BMP, GFR, PRALB, TRF ####[place] [address] Glucose mass conc 150 82-115 mg/dL High 10-23-2018 A [facility] ([place]) ([id number]) Comment: Performed By: #### CBC, ADIF F, ANEU, APTT, PRO, BMP, GFR, PRALB, TRF ####[place] [address] Glucose mass conc 142 82-115 mg/dL High 10-23-2018 [facility] ([place]) (55497) Comment: Performed By: #### CBC, ADIF F, ANEU, APTT, PRO, BMP, GFR, PRALB, TRF ####[place] [address] Glucose mass conc 105 82-115 mg/dL Normal 10-23-2018 [facility] ([place]) (13166) Comment: Performed By: #### CBC, ADIF F, ANEU, APTT, PRO, BMP, GFR, PRALB, TRF ####[place] [address] cbc on 2018-10-23 Erythrocyte distribution 15.6 11.5-15.5 % High 10-23 [facility] width Auto Ratio (RBC) ([place]) (25845) Comment: Performed By: #### CBC, ADIF F, ANEU, APTT, PRO, BMP, GFR, PRALB, TRF ####[place] [address] Hematocrit Auto Volume 32.6 34.0-46.0 % Low 018 [facility] Fraction (Bld) ([place]) (14487) Comment: Performed By: #### CBC, ADIF F, ANEU, APTT, PRO, BMP, GFR, PRALB, TRF ####[place] [address] Hemoglobin mass conc 10.6 12.0-16.0 G/dL Low 8 [facility] (Bld) ([place]) (0000 0) Comment: Performed By: #### CBC, ADIF F, ANEU, APTT, PRO, BMP, GFR, PRALB, TRF ####[place] [address] MCH Auto Entitic mass 27.7 27.0-33.0 pg Normal 10-23-20 18 [facility] (RBC) ([place]) (0000 0) Comment: Performed By: #### CBC, ADIF F, ANEU, APTT, PRO, BMP, GFR, PRALB, TRF ####[address] [address] 32.6 32.0-36.0 G/dL Normal 10-23-2018 [facility] (RBC) ([place]) (0000 0) Comment: Performed By: #### CBC, ADIF F, ANEU, APTT, PRO, BMP, GFR, PRALB, TRF ####[address] [address] MCV Auto Entitic volume 85.1 80.0-99.0 fL Normal 2017 [facility] (RBC) ([place]) (0000 0) Comment: Performed By: #### CBC, ADIF F, ANEU, APTT, PRO, BMP, GFR, PRALB, TRF ####[place] [address] Platelet mean volume Auto 7.8 6.6-10.5 fL Normal 10-13 [facility] Entitic volume (Bld) ([place]) (05332) Comment: Performed By: #### CBC, ADIF F, ANEU, APTT, PRO, BMP, GFR, PRALB, TRF ####[address] [address] Platelets Auto #/vol 174 150-450 10 3/mcL Normal 8 [facility] (Bld) [facility] ([place]) (59161) Comment: Performed By: #### CBC, ADIF F, ANEU, APTT, PRO, BMP, GFR, PRALB, TRF ####[address] [address] RBC Auto #/vol (Bld) 3.83 4.10-5.30 10 6/mcL Low 8 [facility] ([place]) (0000 0) Comment: Performed By: #### CBC, ADIF F, ANEU, APTT, PRO, BMP, GFR, PRALB, TRF ####[address] [address] WBC Auto #/vol 13.10 4.50-10.80 10 3/mcL High 10-23-2018 [facility] ([facility] [place]) ([id number]) Comment: Performed By: #### CBC, ADIF F, ANEU, APTT, PRO, BMP, GFR, PRALB, TRF ####[place] [address] caor on 2018-10-23 Calcium Ionized OR 1.05 1.12-1.32 mmol/L Low 10-23-2018 [facility] ([place]) (0000 0) Comment: Performed By: #### CBC, ADIF F, ANEU, APTT, PRO, BMP, GFR, PRALB, TRF ####[place] [address] Calcium Ionized OR 0.97 1.12-1.32 mmol/L Low 10-23-2018 [facility]) (0000 0) Comment: Performed By: #### CBC, ADIF F, ANEU, APTT, PRO, BMP, GFR, PRALB, TRF ####[place] [address] Calcium Ionized OR 1.04 1.12-1.32 mmol/L Low 10-23-2018 [facility]) (0000 0) Comment: Performed By: #### CBC, ADIF F, ANEU, APTT, PRO, BMP, GFR, PRALB, TRF ####[place] [address] Calcium Ionized OR 1.01 1.12-1.32 mmol/L Low 10-23-2018 [facility] ([place]) (0000 0) Comment: Performed By: #### CBC, ADIF F, ANEU, APTT, PRO, BMP, GFR, PRALB, TRF ####[place] [address] bmp on 2018-10-23 Creatinine mass conc 0.61 0.50-1.20 mg/dL Normal 8 [facility] ([place]) (0000 0) Comment: Performed By: #### CBC, ADIF F, ANEU, APTT, PRO, BMP, GFR, PRALB, TRF ####[place] [address] Urea nitrogen/Creatinine mass 26.2 10.0-22.0 ratio High 10-23-2018 [facility] ([place]) (21049) Comment: Performed By: #### CBC, ADIF F, ANEU, APTT, PRO, BMP, GFR, PRALB, TRF ####[place] [address] Calcium mass conc 7.1 8.4-10.1 mg/dL Low 10-23-2018 [facility] ([place]) (61278) Comment: Performed By: #### CBC, ADIF F, ANEU, APTT, PRO, BMP, GFR, PRALB, TRF ####[place] [address] Chloride molar conc 111 98-110 mEq/L High 10-23-2018 [facility] ([place]) (28011) Comment: Performed By: #### CBC, ADIF F, ANEU, APTT, PRO, BMP, GFR, PRALB, TRF ####[place] [address] CO2 molar conc 24 22-32 mEq/L Normal 10-23-2018 [facility] ([place]) (92751) Comment: Performed By: #### CBC, ADIF F, ANEU, APTT, PRO, BMP, GFR, PRALB, TRF ####[place] [address] Electrolyte Balance 6.0 4.0-15.0 mEq/L Normal 10-23-2018 [facility] ([place]) (0000 0) Comment: Performed By: #### CBC, ADIF F, ANEU, APTT, PRO, BMP, GFR, PRALB, TRF ####[place] [address] Glucose mass conc 173 82-115 mg/dL High 10-23-2018 [facility] ([place]) (44331) Comment: Performed By: #### CBC, ADIF F, ANEU, APTT, PRO, BMP, GFR, PRALB, TRF ####[place] [address] Potassium molar conc 4.3 3.5-5.0 mEq/L Normal 8 [facility] ([place]) (0000 0) Comment: Performed By: #### CBC, ADIF F, ANEU, APTT, PRO, BMP, GFR, PRALB, TRF ####[place] [address] Sodium molar conc 141 136-145 mEq/L Normal 10-23-2018 [facility] ([place]) (02667) Comment: Performed By: #### CBC, ADIF F, ANEU, APTT, PRO, BMP, GFR, PRALB, TRF ####[place] [address] Urea nitrogen mass conc 16.0 8.0-22.0 mg/dL Normal 2017 [facility] ([place]) (65348) Comment: Performed By: #### CBC, ADIF F, ANEU, APTT, PRO, BMP, GFR, PRALB, TRF ####[place] [address] bgoh on 2018-10-23 Patient Location OPEN [facility] Normal 10-23-2018 A [facility] ([place]) (02447) Comment: Performed By: #### CBC, ADIF F, ANEU, APTT, PRO, BMP, GFR, PRALB, TRF ####[place] [address] Patient Location [facility] HE[facility] Normal 10-23-2018 [facility] ([place]) (66447) Comment: Performed By: #### CBC, ADIF F, ANEU, APTT, PRO, BMP, GFR, PRALB, TRF ####[place] [address] Patient Location [facility] HE[facility] Normal 10-23-2018 [facility] ([place]) (27964) Comment: Performed By: #### CBC, ADIF F, ANEU, APTT, PRO, BMP, GFR, PRALB, TRF ####[place] [address] Patient Location [facility] HE[facility] Normal 10-23-2018 [facility] ([place]) (14195) Comment: Performed By: #### CBC, ADIF F, ANEU, APTT, PRO, BMP, GFR, PRALB, TRF ####[place] [address] bg on 2018-10-23 Barometric Pressure 735 mmHg Normal 10-23-2018 [facility] ([place]) (16294) Comment: Performed By: #### CBC, ADIF F, ANEU, APTT, PRO, BMP, GFR, PRALB, TRF ####[place] [address] Base excess Calculated -2.5 mmol/L Normal 018 [facility] molar conc (Bld) ([place] ) (59308) Comment: Performed By: #### CBC, ADIF F, ANEU, APTT, PRO, BMP, GFR, PRALB, TRF ####[place] [address] CO2 molar conc 24.1 22.0-30.0 mmol/L Normal 10-23-2018 [facility] ([place]) (33072) Comment: Performed By: #### CBC, ADIF F, ANEU, APTT, PRO, BMP, GFR, PRALB, TRF ####[place] [address] HCO3 molar conc 22.9 21.0-29.0 mmol/L Normal 10-23-2018 [facility] (Bld) ([place]) (0000 0) Comment: Performed By: #### CBC, ADIF F, ANEU, APTT, PRO, BMP, GFR, PRALB, TRF ####[place] [address] Oxygen ppres (BldA) 209.8 74.0-108.0 mmHg High 8 [facility] ([place]) (0000 0) Comment: Performed By: #### CBC, ADIF F, ANEU, APTT, PRO, BMP, GFR, PRALB, TRF ####[address] [address] Oxygen saturation in Blood 99.2 92.0-96.0 % High [facility] ([place]) (0000 0) Comment: Performed By: #### CBC, ADIF F, ANEU, APTT, PRO, BMP, GFR, PRALB, TRF ####[address] [address] pCO2 41.6 32.0-46.0 mmHg Normal 10-23-2018 [facility] ([place]) (24021) Comment: Performed By: #### CBC, ADIF F, ANEU, APTT, PRO, BMP, GFR, PRALB, TRF ####[place] [address] pH (Bld) 7.358 7.380-7.460 [pH] Low 10-23-2018 [facility] ([place]) (30406) Comment: Performed By: #### CBC, ADIF F, ANEU, APTT, PRO, BMP, GFR, PRALB, TRF ####[place] [address] Barometric Pressure 732 mmHg Normal 10-23-2018 [facility] ([place]) (12117) Comment: Performed By: #### CBC, ADIF F, ANEU, APTT, PRO, BMP, GFR, PRALB, TRF ####[place] [address] Base excess Calculated -2.4 mmol/L Normal 018 [facility] molar conc (Bld) ([place] ) (51139) Comment: Performed By: #### CBC, ADIF F, ANEU, APTT, PRO, BMP, GFR, PRALB, TRF ####[address] [address] CO2 molar conc 23.6 22.0-30.0 mmol/L Normal 10-23-2018 [facility] ([place]) (14478) Comment: Performed By: #### CBC, ADIF F, ANEU, APTT, PRO, BMP, GFR, PRALB, TRF ####[address] [address] HCO3 molar conc 22.4 21.0-29.0 mmol/L Normal 10-23-2018 [facility] ([facility]) ([place]) (0000 0) Comment: Performed By: #### CBC, ADIF F, ANEU, APTT, PRO, BMP, GFR, PRALB, TRF ####[address] [address] Oxygen ppres (BldA) 163.3 74.0-108.0 mmHg High 8 [facility] ([place]) (0000 0) Comment: Performed By: #### CBC, ADIF F, ANEU, APTT, PRO, BMP, GFR, PRALB, TRF ####[address] [address] Oxygen saturation in Blood 98.9 92.0-96.0 % High [facility] ([place]) (0000 0) Comment: Performed By: #### CBC, ADIF F, ANEU, APTT, PRO, BMP, GFR, PRALB, TRF ####[address] [address] pCO2 38.5 32.0-46.0 mmHg Normal 10-23-2018 [facility] ([place]) (33912) Comment: Performed By: #### CBC, ADIF F, ANEU, APTT, PRO, BMP, GFR, PRALB, TRF ####[address] [address] pH (Bld) 7.383 7.380-7.460 [pH] Normal 10-23-2018 [facility] ([place]) (41795) Comment: Performed By: #### CBC, ADIF F, ANEU, APTT, PRO, BMP, GFR, PRALB, TRF ####[address] [address] Barometric Pressure 733 mmHg Normal 10-23-2018 [facility] ([place]) (72264) Comment: Performed By: #### CBC, ADIF F, ANEU, APTT, PRO, BMP, GFR, PRALB, TRF ####[address] [address] Base excess Calculated -0.3 mmol/L Normal 018 [facility] molar conc (d) ([place] ) (43967) Comment: Performed By: #### CBC, ADIF F, ANEU, APTT, PRO, BMP, GFR, PRALB, TRF ####[address] [address] CO2 molar conc 25.4 22.0-30.0 mmol/L Normal 10-23-2018 [facility] ([place]) (48103) Comment: Performed By: #### CBC, ADIF F, ANEU, APTT, PRO, BMP, GFR, PRALB, TRF ####[address] [address] HCO3 molar conc 24.2 21.0-29.0 mmol/L Normal 10-23-2018 [facility] (d) ([place]) (0000 0) Comment: Performed By: #### CBC, ADIF F, ANEU, APTT, PRO, BMP, GFR, PRALB, TRF ####[address] [address] Oxygen ppres (BldA) 179.4 74.0-108.0 mmHg High 8 [facility] ([place]) (0000 0) Comment: Performed By: #### CBC, ADIF F, ANEU, APTT, PRO, BMP, GFR, PRALB, TRF ####[address] [address] Oxygen saturation in Blood 99.2 92.0-96.0 % High [facility] ([place]) (0000 0) Comment: Performed By: #### CBC, ADIF F, ANEU, APTT, PRO, BMP, GFR, PRALB, TRF ####[address] [address] pCO2 39.0 32.0-46.0 mmHg Normal 10-23-2018 [facility] ([place]) (75148) Comment: Performed By: #### CBC, ADIF F, ANEU, APTT, PRO, BMP, GFR, PRALB, TRF ####[address] [address] pH (Bld) 7.411 7.380-7.460 [pH] Normal 10-23-2018 [facility] ([place]) (93287) Comment: Performed By: #### CBC, ADIF F, ANEU, APTT, PRO, BMP, GFR, PRALB, TRF ####[address] [address] Barometric Pressure 734 mmHg Normal 10-23-2018 [facility] ([place]) (59004) Comment: Performed By: #### CBC, ADIF F, ANEU, APTT, PRO, BMP, GFR, PRALB, TRF ####[place] [address] Base excess Calculated 2.2 mmol/L Normal 018 [facility] molar conc (Bld) ([place] ) (60950) Comment: Performed By: #### CBC, ADIF F, ANEU, APTT, PRO, BMP, GFR, PRALB, TRF ####[address] [address] CO2 molar conc 27.2 22.0-30.0 mmol/L Normal 10-23-2018 [facility] ([place]) (83333) Comment: Performed By: #### CBC, ADIF F, ANEU, APTT, PRO, BMP, GFR, PRALB, TRF ####[address] [address] HCO3 molar conc 26.0 21.0-29.0 mmol/L Normal 10-23-2018 [facility] (d) ([place]) (0000 0) Comment: Performed By: #### CBC, ADIF F, ANEU, APTT, PRO, BMP, GFR, PRALB, TRF ####[address] [address] Oxygen ppres (BldA) 161.9 74.0-108.0 mmHg High 8 [facility] ([place]) (0000 0) Comment: Performed By: #### CBC, ADIF F, ANEU, APTT, PRO, BMP, GFR, PRALB, TRF ####[address] [address] Oxygen saturation in Blood 99.1 92.0-96.0 % High [facility] ([place]) (0000 0) Comment: Performed By: #### CBC, ADIF F, ANEU, APTT, PRO, BMP, GFR, PRALB, TRF ####[address] [address] pCO2 37.5 32.0-46.0 mmHg Normal 10-23-2018 [facility] ([place]) (72595) Comment: Performed By: #### CBC, ADIF F, ANEU, APTT, PRO, BMP, GFR, PRALB, TRF ####[address] [address] pH (Bld) 7.459 7.380-7.460 [pH] Normal 10-23-2018 [facility] ([place]) (02452) Comment: Performed By: #### CBC, ADIF F, ANEU, APTT, PRO, BMP, GFR, PRALB, TRF ####[address] [address] Barometric Pressure 736 mmHg Normal 10-23-2018 [facility] ([place]) (92673) Comment: Performed By: #### CBC, ADIF F, ANEU, APTT, PRO, BMP, GFR, PRALB, TRF ####[address] [address] Base excess Calculated 3.9 mmol/L Normal 018 [facility] molar conc (Bld) ([place] ) (36028) Comment: Performed By: #### CBC, ADIF F, ANEU, APTT, PRO, BMP, GFR, PRALB, TRF ####[address] [address] CO2 molar conc 27.6 22.0-30.0 mmol/L Normal 10-23-2018 [facility] ([place]) (12918) Comment: Performed By: #### CBC, ADIF F, ANEU, APTT, PRO, BMP, GFR, PRALB, TRF ####[address] [address] HCO3 molar conc 26.6 21.0-29.0 mmol/L Normal 10-23-2018 [facility] ([facility] ([place]) (0000 0) Comment: Performed By: #### CBC, ADIF F, ANEU, APTT, PRO, BMP, GFR, PRALB, TRF ####[place] [address] Oxygen ppres (BldA) 228.4 74.0-108.0 mmHg High 8 [facility] ([place]) (0000 0) Comment: Performed By: #### CBC, ADIF F, ANEU, APTT, PRO, BMP, GFR, PRALB, TRF ####[place] [address] Oxygen saturation in Blood 99.5 92.0-96.0 % High [facility] ([place]) (0000 0) Comment: Performed By: #### CBC, ADIF F, ANEU, APTT, PRO, BMP, GFR, PRALB, TRF ####[place] [address] pCO2 33.4 32.0-46.0 mmHg Normal 10-23-2018 [facility] ([place]) (04934) Comment: Performed By: #### CBC, ADIF F, ANEU, APTT, PRO, BMP, GFR, PRALB, TRF ####[address] [address] pH (Bld) 7.519 7.380-7.460 [pH] High 10-23-2018 [facility] ([place]) (82255) Comment: Performed By: #### CBC, ADIF F, ANEU, APTT, PRO, BMP, GFR, PRALB, TRF ####[address] [address] .neuabs on Neutrophil, Absolute 12.10 2.25-8.10 10 3/mcL High 8 [facility] ([place]) (18313) Comment: Performed By: #### CBC, ADIF F, ANEU, APTT, PRO, BMP, GFR, PRALB, TRF ####[address] [address] .gfr on 2018-10-23 GFR Non- >60 Normal 10-23 [facility] ([place]) (54766) Comment: Result Comment: GFR Populati on mean for , Non- Americans Ages 20-29 = 116 m L/min/1.73 sq.m. Ages 30-39 = 107 mL/min/1.73 sq.m. Ages 40-49 = 99 mL/min /1.73 sq.m. Ages 50-59 = 93 mL/min/1.73 sq.m. Ages 60-69 = 85 mL/min/1.73 sq.m. Ages 70+ = 75 mL/min/1.73 sq.m.Chronic Kidney Disease: Less than 60 mL/min/1.73 square metersEnd Stage Renal Disease: Less than 15 mL/min /1.73 square meters Performed By: #### CBC, ADIF F, ANEU, APTT, PRO, BMP, GFR, PRALB, TRF ####[address] [address] GFR >60 Normal 8 [facility] ([place]) (27650) Comment: Result Comment: GFR Populati on mean for , Non- Americans Ages 20-29 = 116 m L/min/1.73 sq.m. Ages 30-39 = 107 mL/min/1.73 sq.m. Ages 40-49 = 99 mL/min /1.73 sq.m. Ages 50-59 = 93 mL/min/1.73 sq.m. Ages 60-69 = 85 mL/min/1.73 sq.m. Ages 70+ = 75 mL/min/1.73 sq.m.Chronic Kidney Disease: Less than 60 mL/min/1.73 square metersEnd Stage Renal Disease: Less than 15 mL/min /1.73 square meters Performed By: #### CBC, ADIF F, ANEU, APTT, PRO, BMP, GFR, PRALB, TRF ####[address] [address] .auto diff on 10-23 Ammonia mass conc 0.40 0.09-1.40 10 3/mcL Normal 10-23-2018 A [facility]) (53923) Comment: Performed By: #### CBC, ADIF F, ANEU, APTT, PRO, BMP, GFR, PRALB, TRF ####[address] [address] Basophils Auto #/vol 0.00 0.00-0.27 10 3/mcL Normal 8 [facility]) (62899) Comment: Performed By: #### CBC, ADIF F, ANEU, APTT, PRO, BMP, GFR, PRALB, TRF ####[address] [address] Basophils/100 WBC Auto ([facility]) 0.1 0.0-2.5 % Normal 1 12-24-2017 [facility]) (0000 0) Comment: Performed By: #### CBC, ADIF F, ANEU, APTT, PRO, BMP, GFR, PRALB, TRF ####[address] [address] Eosinophils Auto #/vol 0.00 0.00-0.65 10 3/mcL Normal 018 [facility]) (47735) Comment: Performed By: #### CBC, ADIF F, ANEU, APTT, PRO, BMP, GFR, PRALB, TRF ####[address] [address] Eosinophils/100 WBC Auto 0.0 0.0-6.0 % Normal 10-23 [facility] ([place]) (71947) Comment: Performed By: #### CBC, ADIF F, ANEU, APTT, PRO, BMP, GFR, PRALB, TRF ####[address] [address] Lymphocytes Auto #/vol 0.60 0.90-4.32 10 3/mcL Low 018 [facility]) (37224) Comment: Performed By: #### CBC, ADIF F, ANEU, APTT, PRO, BMP, GFR, PRALB, TRF ####[address] [address] Lymphocytes/100 WBC Auto (Bld) 4.5 20.0-40.0 % Low 10-23-2018 [facility] ([place]) (96523) Comment: Performed By: #### CBC, ADIF F, ANEU, APTT, PRO, BMP, GFR, PRALB, TRF ####[address] [address] Monocytes/100 WBC Auto (Bld) 3.1 2.0-13.0 % Normal 1 12-24-2017 [facility] ([place]) (15868) Comment: Performed By: #### CBC, ADIF F, ANEU, APTT, PRO, BMP, GFR, PRALB, TRF ####[address] [address] Neutrophils/100 WBC Auto 92.3 50.0-75.0 % High 10-23 [facility] ([place]) (46301) Comment: Performed By: #### CBC, ADIF F, ANEU, APTT, PRO, BMP, GFR, PRALB, TRF ####[address] [address] trf on 2018-10-02 Transferrin mass conc 324 202-336 mg/dL Normal 10-02-20 18 [facility] ([place]) (0000 0) Comment: Performed By: #### CBC, ADIF F, ANEU, APTT, PRO, BMP, GFR, PRALB, TRF ####[address] [address] pro on 2018-10-02 INR Coag RelTime (PPP) 1.1 ratio Normal 018 [facility] ([place]) (29175) Comment: Result Comment: The [employer] (CHEST, 1991, 102:312S-25S)recommended the rapeutic range for oral anticoagulant therapy is:LOW RISK: Prophylaxis of venous thrombosis INR: 2.0-3.0 Treatment of pulmonary embolism 2.0-3.0 P revention of systemic embolism 2.0-3.0HIGH RISK: Mechanical prosthetic valves 2.5-3.5 Performed By: #### CBC, ADIF F, ANEU, APTT, PRO, BMP, GFR, PRALB, TRF ####[place] [id number] [place] [address] Prothrombin time (PT) 12.5 9.0-14.6 seconds Normal 10-02-20 18 [facility] Coag time (PPP) [facility] ([place]) (17224) Comment: Result Comment: Effective , Protime results may be affected by some antibiotics (i.e. Ciprofloxa giovanni, Azithromycin, Bactrim) which may potentiate the action of oral anticoagu lants, with further increases in Protime/INR. Performed By: #### CBC, ADIF F, ANEU, APTT, PRO, BMP, GFR, PRALB, TRF ####[address] [address] pralb on 2018-10-02 Prealbumin mass conc 20.3 18.0-38.0 mg/dL Normal 8 [facility] ([place]) (0000 0) Comment: Performed By: #### CBC, ADIF F, ANEU, APTT, PRO, BMP, GFR, PRALB, TRF ####[place] [id number] [address] [place] [address] cbc on 2018-10-02 Erythrocyte distribution 16.0 11.5-15.5 % High 10-02 [facility] width Auto Ratio (RBC) ([place]) (86340) Comment: Performed By: #### CBC, ADIF F, ANEU, APTT, PRO, BMP, GFR, PRALB, TRF ####[place] [id number] [address] [place] [address] Hematocrit Auto Volume 34.5 34.0-46.0 % Normal 018 [facility] Fraction (Bld) ([place]) (44625) Comment: Performed By: #### CBC, ADIF F, ANEU, APTT, PRO, BMP, GFR, PRALB, TRF ####[address] [address] Hemoglobin mass conc 11.5 12.0-16.0 G/dL Low 8 [facility] (Bld) ([place]) (0000 0) Comment: Performed By: #### CBC, ADIF F, ANEU, APTT, PRO, BMP, GFR, PRALB, TRF ####[place] [address] MCH Auto Entitic mass 27.9 27.0-33.0 pg Normal 10-02-20 18 [facility] (RBC) ([place]) (0000 0) Comment: Performed By: #### CBC, ADIF F, ANEU, APTT, PRO, BMP, GFR, PRALB, TRF ####[place] [address] MCHC Auto mass conc 33.3 32.0-36.0 G/dL Normal 10-02-2018 [facility] (RBC) ([place]) (0000 0) Comment: Performed By: #### CBC, ADIF F, ANEU, APTT, PRO, BMP, GFR, PRALB, TRF ####[place] [address] MCV Auto Entitic volume 83.6 80.0-99.0 fL Normal 2017 [facility] ([facility]BC) ([place]) (0000 0) Comment: Performed By: #### CBC, ADIF F, ANEU, APTT, PRO, BMP, GFR, PRALB, TRF ####[address] [address] Platelet mean volume Auto 8.1 6.6-10.5 fL Normal 09-14 [facility] Entitic volume (Bld) ([place]) (34703) Comment: Performed By: #### CBC, ADIF F, ANEU, APTT, PRO, BMP, GFR, PRALB, TRF ####[address] [address] Platelets Auto #/vol 255 150-450 10 3/mcL Normal 8 [facility]) (33434) Comment: Performed By: #### CBC, ADIF F, ANEU, APTT, PRO, BMP, GFR, PRALB, TRF ####[address] [address] RBC Auto #/vol 4.13 4.10-5.30 10 6/mcL Normal 10-02-2018 [facility] ([place]) (67947) Comment: Performed By: #### CBC, ADIF F, ANEU, APTT, PRO, BMP, GFR, PRALB, TRF ####[address] [address] WBC Auto #/vol ([facility]) 4.40 4.50-10.80 10 3/mcL Low 10-02-20 18 [facility] ([place]) (0000 0) Comment: Performed By: #### CBC, ADIF F, ANEU, APTT, PRO, BMP, GFR, PRALB, TRF ####[address] [address] bmp on 2018-10-02 Calcium mass conc 8.6 8.4-10.1 mg/dL Normal 10-02-2018 A [facility]) (54369) Comment: Performed By: #### CBC, ADIF F, ANEU, APTT, PRO, BMP, GFR, PRALB, TRF ####[address] [address] Chloride molar conc 103 98-110 mEq/L Normal 10-02-2018 [facility] ([place]) ([id number]) Comment: Performed By: #### CBC, ADIF F, ANEU, APTT, PRO, BMP, GFR, PRALB, TRF ####[address] [address] CO2 molar conc 28 22-32 mEq/L Normal 10-02-2018 [facility] ([place]) ([id number]) Comment: Performed By: #### CBC, ADIF F, ANEU, APTT, PRO, BMP, GFR, PRALB, TRF ####[place] [address] Creatinine mass conc 0.74 0.50-1.20 mg/dL Normal 8 [facility]) (0000 0) Comment: Performed By: #### CBC, ADIF F, ANEU, APTT, PRO, BMP, GFR, PRALB, TRF ####[place] [address] Electrolyte Balance 8.0 4.0-15.0 mEq/L Normal 10-02-2018 [facility]) (0000 0) Comment: Performed By: #### CBC, ADIF F, ANEU, APTT, PRO, BMP, GFR, PRALB, TRF ####[place] [address] Glucose mass conc 87 82-115 mg/dL Normal 10-02-2018 [facility]) ([id number]) Comment: Performed By: #### CBC, ADIF F, ANEU, APTT, PRO, BMP, GFR, PRALB, TRF ####[place] [address] Potassium molar conc 4.0 3.5-5.0 mEq/L Normal 8 [facility]) (0000 0) Comment: Performed By: #### CBC, ADIF F, ANEU, APTT, PRO, BMP, GFR, PRALB, TRF ####[place] [address] Sodium molar conc 139 136-145 mEq/L Normal 10-02-2018 [facility]) ([id number]) Comment: Performed By: #### CBC, ADIF F, ANEU, APTT, PRO, BMP, GFR, PRALB, TRF ####[address] [address] Urea nitrogen mass conc 18.0 8.0-22.0 mg/dL Normal 2017 [facility]) ([id number]) Comment: Performed By: #### CBC, ADIF F, ANEU, APTT, PRO, BMP, GFR, PRALB, TRF ####[address] [address] Urea nitrogen/Creatinine mass 24.3 10.0-22.0 ratio High 10-02-2018 [facility] ([place]) ([id number]) Comment: Performed By: #### CBC, ADIF F, ANEU, APTT, PRO, BMP, GFR, PRALB, TRF ####[address] [address] aptt on 2018-10-02 aPTT Coag time (Bld) Unknown Normal 8 [facility]) ([id number]) Comment: Performed By: #### CBC, ADIF F, ANEU, APTT, PRO, BMP, GFR, PRALB, TRF ####[address] [address] aPTT Coag time (Bld) 27.1 25.0-35.0 seconds Normal 8 [facility] ([place]) ([id number]) Comment: Result Comment: For Heparin anticoagulation therapy, the recommendedtherapeutic range is: 54-77 seconds (APTT Correlationwith Anti-Xa therapeutic range of 0.3-0.7 units/ml).PLEASE REFERENCE THE PHARMACY PROTOCOL FOR DOSING. Performed By: #### CBC, ADIF F, ANEU, APTT, PRO, BMP, GFR, PRALB, TRF ####[address] [address] .neuabs on Neutrophil, Absolute 2.30 2.25-8.10 10 3/mcL Normal 8 [facility] ([place]) ([id number]) Comment: Performed By: #### CBC, ADIF F, ANEU, APTT, PRO, BMP, GFR, PRALB, TRF ####[address] [address] .gfr on 2018-10-02 GFR >60 Normal 8 [facility]) (91195) Comment: Result Comment: GFR Populati on mean for , Non- Americans Ages 20-29 = 116 m L/min/1.73 sq.m. Ages 30-39 = 107 mL/min/1.73 sq.m. Ages 40-49 = 99 mL/min /1.73 sq.m. Ages 50-59 = 93 mL/min/1.73 sq.m. Ages 60-69 = 85 mL/min/1.73 sq.m. Ages 70+ = 75 mL/min/1.73 sq.m.Chronic Kidney Disease: Less than 60 mL/min/1.73 square metersEnd Stage Renal Disease: Less than 15 mL/min /1.73 square meters Performed By: #### CBC, ADIF F, ANEU, APTT, PRO, BMP, GFR, PRALB, TRF ####[place] [id number] [address] [place] [address] GFR Non- >60 Normal 10-02 [facility] ([place]) ([id number]) Comment: Result Comment: GFR Populati on mean for , Non- Americans Ages 20-29 = 116 m L/min/1.73 sq.m. Ages 30-39 = 107 mL/min/1.73 sq.m. Ages 40-49 = 99 mL/min /1.73 sq.m. Ages 50-59 = 93 mL/min/1.73 sq.m. Ages 60-69 = 85 mL/min/1.73 sq.m. Ages 70+ = 75 mL/min/1.73 sq.m.Chronic Kidney Disease: Less than 60 mL/min/1.73 square metersEnd Stage Renal Disease: Less than 15 mL/min /1.73 square meters Performed By: #### CBC, ADIF F, ANEU, APTT, PRO, BMP, GFR, PRALB, TRF ####[address] [address] .auto diff on 10-02 Ammonia mass conc 0.50 0.09-1.40 10 3/mcL Normal 10-02-2018 [facility] () [facility] [place] ([place]) ([address]) Comment: Performed By: #### CBC, ADIF F, ANEU, APTT, PRO, BMP, GFR, PRALB, TRF ####[address] [address] Basophils Auto #/vol 0.00 0.00-0.27 10 3/mcL Normal 8 [facility]) (66652) Comment: Performed By: #### CBC, ADIF F, ANEU, APTT, PRO, BMP, GFR, PRALB, TRF ####[address] [address] Basophils/100 WBC Auto ([facility]) 0.5 0.0-2.5 % Normal 1 12-02-2017 [facility]) (0000 0) Comment: Performed By: #### CBC, ADIF F, ANEU, APTT, PRO, BMP, GFR, PRALB, TRF ####[address] [address] Eosinophils Auto #/vol 0.20 0.00-0.65 10 3/mcL Normal 018 [facility]) (86044) Comment: Performed By: #### CBC, ADIF F, ANEU, APTT, PRO, BMP, GFR, PRALB, TRF ####[address] [address] Eosinophils/100 WBC Auto 3.7 0.0-6.0 % Normal 10-02 [facility]) (96199) Comment: Performed By: #### CBC, ADIF F, ANEU, APTT, PRO, BMP, GFR, PRALB, TRF ####[address] [address] Lymphocytes Auto #/vol 1.40 0.90-4.32 10 3/mcL Normal [address] [place] [address]) ([id number]) Comment: Performed By: #### CBC, ADIF F, ANEU, APTT, PRO, BMP, GFR, PRALB, TRF ####[address] [address] Lymphocytes/100 WBC Auto 32.3 20.0-40.0 % Normal 10-02 [facility]) (78957) Comment: Performed By: #### CBC, ADIF F, ANEU, APTT, PRO, BMP, GFR, PRALB, TRF ####[facility] [place] [address] Monocytes/100 WBC Auto 10.6 2.0-13.0 % Normal 018 [facility]) (22347) Comment: Performed By: #### CBC, ADIF F, ANEU, APTT, PRO, BMP, GFR, PRALB, TRF ####[facility] [place] [address] Neutrophils/100 WBC Auto 52.9 50.0-75.0 % Normal 10-02 [facility]) (16671) Comment: Performed By: #### CBC, ADIF F, ANEU, APTT, PRO, BMP, GFR, PRALB, TRF ####[facility] [place] [address] xr pelvis 1 vw on 2 XR PELVIS 1 VW * * *Final Report* * *DATE OF Leonie l 08-01-2017 [facility] EXAM: Aug 01 2017 7:08AM CHRISTO ([id number]) 1456 - XR PELVIS 1 VW / REASON: S37-Phga, unspecified * * * * Physician Interpretation * * * * PROCEDURE: PelvisINDICATION: Pain, unspecified .TECHNIQUE: XR PELVIS 1 VWCOMPARISON: NoneFINDINGS:There are bilateral total hip arthroplasties in satisfactory position without evidence for loosening. No fracture is seen. There are tubal ligatures in the pelvis.IMPRESSION: Satisfactory appearing bilateral THAsTranscriptionist: IRENEB Transcribe Date/Time: Aug 01 2017 8:14ADictated by : JYOTHI GRAYSON MDThisonny examination was interpreted and the report reviewed and electronically signed by: JYOTHI GRAYSON MD on Aug 01 2017 8:15AM EST progress on 2017-07 PROGRESS HNO ID: [id number]: Normal 07-14 [facility] (Ct) [place], CTService: ([id number]) (none)Author Type: Clinical TechnicianType: Progress NotesFiled: 08/01/2017 7:22 AMNote Text:NAME:Cr Mary: August 01, 2017[facility] [id number] X-Ray COMPLETEDTECH ID SIGN: NAZ ANGEL office visit: screening colonoscopy on 2017-05-04 Dietary management yes Invalid 05-04-2017 [facility] Surgical education, Interpretation Code 7 [facility] guidance, and (32875 ) counseling (procedure) Documentation of Done Invalid 05-04-2017 [facility] Surgical current medications Interpretation Code 05-04-2017 [facility] (procedure) (24712) Protein mass conc Done 05-04-2017 [facility] Surgical 05-04-2017 Associate s ([id number]) Tobacco smoking Never Invalid 05-04-2017 - [facility] Surgical status [facility] Interpretation Code 05-04-20 17 Associates (02077) Tobacco smoking Never smoker 05-04-2017 [facility] Surgical status [facility] 05-04-2017 [facility] (50121) Tobacco use HS Never smoker Invalid 05-04-2017 [facility] Surgical Interpretation Code 05-04-2017 [facility] (58149) lab report: liver profile on 2016-08-24 Alanine 16 12-78 U/L Invalid 08-24-2016 [facility] Diana gical aminotransferase Interpretation 08-24-20 16 Associates (ALT) Code (52477) Albumin 3.7 3.4-5.0 g/dL Invalid 08-24-2016 [facility] Diana gical Interpretation 08-24-2016 As[facility] ciates Code (48486) Alkaline phosphatase 74 50-136 U/L Invalid [facility] Surgical (ALP) Interpretation 08-24-2016 [facility] ciates Code (48360) ALP enzyme act/vol 74 50-136 U/L 08-24-2016 [facility] Surgical (Bld) 08-24-2016 [facility] ([id number]) Aspartate 20 15-37 U/L Invalid 08-24-2016 [facility] Diana gical aminotransferase Interpretation 08-24-20 16 Associates (AST) Code (42949) Bilirubin (direct) 0.12 0.00-0.30 mg/dL Invalid 08-24-2016 [facility] Surgical Interpretation 08-24-2016 [facility] ci[facility] Code (33742) Bilirubin (total) 0.50 0.20-1.00 mg/dL Invalid 08-24-2016 - [facility] Surgical Interpretation 08-24-2016 Asso ciates Code (43998) Globulin 4.2 2.3-3.5 g/dL High 08-24-2016 - [facility] Diana gical 08-24-2016 Associate s ([id number]) Globulin mass conc 4.2 2.3-3.5 g/dL High 08-24-2016 [facility] Surgical (S) 08-24-2016 Associate [facility] ([id number]) Protein 7.9 6.4-8.2 g/dL Invalid 08-24-2016 [facility] Diana gical Interpretation 08-24-2016 As[facility] ciates Code ([id number]) lab report: cbc-complete blood cnt no di ff on 2016-08-24 Erythrocyte 44.9 35.1-43.9 fL High 08-24-2016 [facility] S urgical distribution 08-24-2016 Associ ates width Ratio (93530) (RBC) Erythrocyte 13.8 11.6-14.6 % 08-24-2016 [facility] S urgical distribution 08-24-2016 Associ ates width Ratio (89417) (RBC) Erythrocytes 4.47 4.2-5.4 10*6/u Invalid 08-24-2016 [facility] Surgical (RBC) L Interpretation 08-24-2016 Asso ciates Code (52866) Hematocrit (HCT) 40.2 37-47 % Invalid 08-24-2016 [facility] Surgical Interpretation 08-24-2016 Asso ciates Code (88578) Hematocrit 40.2 37-47 % 08-24-2016 [facility] Tony rgical Volume Fraction 08-24-2016 Ass ociates (Bld) (90561) Hemoglobin (HGB) 13.3 12.0-15.0 g/dL Invalid 08-24-2016 - [facility] Surgical Interpretation 08-24-2016 Asso ciates Code (02736) MCH 29.8 27.0-32.0 pg Invalid 08-24-2016 [facility] Diana gical Interpretation 08-24-2016 Asso ciates Code (44627) MCH Entitic mass 29.8 27.0-32.0 pg 08-24-2016 - [facility] Surgical (RBC) 08-24-2016 Associate s ([id number]) MCHC 33.1 32-36 Invalid 08-24-2016 [facility] Diana gical G/GL Interpretation 08-24-2016 Asso ciates Code (99599) MCHC mass conc 33.1 32-36 08-24-2016 - [facility] Surgical (RBC) G/GL 08-24-2016 Associate [facility] ([id number]) MCV 89.9 81-99 fL Invalid 08-24-2016 [facility] Diana gical Interpretation 08-24-2016 Asso ciates Code (59354) MCV Entitic 89.9 81-99 fL 08-24-2016 - [facility] S urgical volume (RBC) 08-24-2016 Associ ates (44030) Platelet mean 10.3 6.2-12.0 fL 08-24-2016 [facility] Surgical volume Entitic 08-24-2016 Asso ciates volume (Bld) (46402) Platelets 279 150-450 10*3/m Invalid 08-24-2016 [facility] Diana gical m3 Interpretation 08-24-2016 Asso ciates Code (96697) Platelets #/vol 279 150-450 10*3/m 08-24-2016 - [facility] (Bld) m3 08-24-2016 [facility] ([id number]) PMV by 10.3 6.2-12.0 fL Invalid 08-24-2016 [facility] Diana gical Esau-Holly Interpretation 08-24-2016 Ass ociates Code (12444) RBC #/vol (Bld) 4.47 4.2-5.4 10*6/u 08-24-2016 - [facility] L 08-24-2016 Associate [facility] ([id number]) RDW-CA 13.8 11.6-14.6 % Invalid 08-24-2016 [facility] Diana gical Interpretation 08-24-2016 Asso ciates Code (52414) red blood cell 44.9 35.1-43.9 fL High 08-24-2016 - [facility] Surgical distribution 08-24-2016 Associ ates width, size (74693) density WBC #/vol (Bld) 6.1 4.4-11.0 10*9/L 08-24-2016 - [facility] Surgical 08-24-2016 Associate s ([id number]) WBC (Leukocytes) 6.1 4.4-11.0 10*9/L Invalid 08-24-2016 - [facility] Surgical Interpretation 08-24-2016 Trevor culver Code (29995) office visit: new patient consult abnorm al mammogram referral from dr. yang on 2016-07-18 Breast Abnormal Left Invalid 07-18-2016 [facility] Surgical Mammogram Interpretation Code 07-18-2016 [facility] screening (45190) MG Breast Abnormal Left 07-18-2016 [facility] Surgical screening 07-18-2016 Associate s ([id number]) replaced document: tsh on 2012-02-02 Thyroid stimulating 1.67 0.358-3.74 u[iU]/mL Normal [facility] Surgical hormone (TSH) 02-02-2012 Assoc iates (91050) replaced document: bmp on 2012-02-02 Calcium 8.7 8.5-10.1 mg/dL Normal 02-02-2012 [facility] Diana gical 02-02-2012 Associate s ([id number]) Chloride 100 98-107 mmol/L Normal 02-02-2012 [facility] Diana gical 02-02-2012 Associate s ([id number]) Creatinine 0.9 0.6-1.0 mg/dL Normal 02-02-2012 [facility] Tony rgical 02-02-2012 Associate s ([id number]) Glucose 119 70-110 mg/dL High 02-02-2012 [facility] Diana gi02-02-2012 Associate s ([id number]) Glucose mass conc 119 70-110 mg/dL High 02-02-2012 [facility] Surgical 02-02-2012 Associate s ([id number]) Potassium 3.3 3.5-5.1 mmol/L Low 02-02-2012 [facility] Diana gical 02-02-2012 Associate s ([id number]) Sodium 139 136-145 mmol/L Normal 02-02-2012 [facility] Diana gical 02-02-2012 Associate s ([id number]) Urea nitrogen 14 7-18 mg/dL Normal 02-02-2012 [facility] Surgical 02-02-2012 Associate s ([id number]) lab report: btnp on 2012-02-02 BTNP 15.7 <100 pg/mL Normal 02-02-2012 - [facility] Diana gical 02-02-2012 Associate s ([id number]) GE use only - for 15.7 <100 pg/mL Normal 02-02-2012 - [facility] Surgical LinkLogic import 02-02-2012 As sociates ([id number]) when terms are not otherwise specified ekg report: midmark ecg observations on 2012-01-31 EKG QRS axis 14 deg 01-31-2012 - [facility] Surgical 01-31-2012 Associate [facility] ([id number]) electrocardiogram Sinus Rhythm Invalid [facility] Surgical interpretation -RSR(V1) Interpretation 01-31-2012 Associates -nondiagnost Code (80602) ic . PROBABLY NORMAL Interpretation Sinus Rhythm 01-31-2012 - [facility] Surgical -RSR(V1) 01-31-2012 Associate s -nondiagnost (91754) ic . PROBABLY NORMAL P [place] 45 deg 01-31-2012 - [facility] Diana gical 01-31-2012 Associate s ([id number]) P wave axis, 45 deg Invalid 01-31-2012 [facility] Surgical electrocardiogram Interpretation 012 [facility] Code (54815) UT Interval 146 ms 01-31-2012 - [facility] S urgical 01-31-2012 Associate s ([id number]) UT interval, 146 ms Invalid 01-31-2012 [facility] Surgical electrocardiogram Interpretation 012 [facility] Code ([id number]) Pulse (Heart Rate) 430 ms Invalid 01-31-2012 - [facility] Surgical Interpretation 01-31-2012 Asso ciates Code (67707) Pulse (Heart Rate) 69 BPM /min Invalid 01-31-2012 - [facility] Surgical Interpretation 01-31-2012 Asso ciates Code (56074) QRS axis, 14 deg Invalid 01-31-2012 - [facility] Diana gical electrocardiogram Interpretation 012 [facility] Code (68288) QRS Duration 98 ms 01-31-2012 - [facility] Surgical 01-31-2012 Associate s ([id number]) QRS duration, 98 ms Invalid 01-31-2012 [facility] Surgical electrocardiogram Interpretation 012 [facility] Code (99421) QT Interval new path ms 01-31-2012 - [facility] Surgical 01-31-2012 Associate s ([id number]) QT interval, new path ms Invalid 01-31-2012 - [facility] Surgical electrocardiogram Interpretation 012 [facility] Code (29085) T [place] -1 deg 01-31-2012 - [facility] Diana gical 01-31-2012 Associate s ([id number]) T wave axis, -1 deg Invalid 01-31-2012 [facility] Surgical electrocardiogram Interpretation 012 [facility] Code (05824) office visit: new patient consult abnorm al mammogram referral from dr. yang on 2005-11-21 General categories hysterectomy Invalid 11-21-19 [facility] Surgical [interpretation] of Interpretation Code 11-21-2005 [facility] Cervical or vaginal (46006) smear or scraping by Cyto stain General categories hysterectomy 11-21-19 - [facility] Surgical Cyto stain Interp 11-21-2005 A ssociates (Cervical or vaginal (25245) smear or scraping) office visit: new patient consult abnorm al mammogram referral from dr. yang on 2000-11-20 Colonoscopy Normal Invalid 11-20-2000 [facility] S urgical (procedure) Interpretation Code 11-20-19 01 Associates ([id number]) Protein mass conc Normal 11-20-2000 - [facility] Surgical 11-20-2000 Associate s ([id number]) Vital Signs Vital Sign Description Value / Unit Date Location The following section is limited to 5 en tries per type and includes entries from the following time range: [id number] - [id number] 2. BMI (Body Mass Index) 38.48 kg/m2 05-04-2017 - 05-04-2017 [facility] ([id number]) Body Temperature 97.9 [degF] 07-24-2020 [facility] c (32188) Body Temperature 98.1 [degF] 05-04-2017 - 05-04-2017 [facility] Diana gical [facility] (80358) Body Temperature 98.1 [degF] 08-10-2016 - 08-10-2016 [facility] Diana gical [facility] (12242) Body weight 106.14 kg 07-24-2020 [facility] (20471) BP Diastolic 70 mm[Hg] 07-24-2020 [facility] (05630) BP Diastolic 87 mm[Hg] 05-04-2017 - 05-04-2017 [facility] Surg ical [facility] (17339) BP Systolic 134 mm[Hg] 07-24-2020 [facility] (25236) BP Systolic 136 mm[Hg] 05-04-2017 - 05-04-2017 [facility] Surg ical [facility] (03153) BSA (Body Surface Area) 2.09 m2 09-21-2016 - 09-21-2016 [facility] (74727) Heart rate 69 /min 01-31-2012 - 01-31-2012 [facility] Surg ical [facility] ([id number]) Heart rate 430 ms 01-31-2012 - 01-31-2012 [facility] Surg ical [facility] ([id number]) Height 162.56 cm 05-04-2017 - 05-04-2017 [facility] Surg ical [facility] ([id number]) Height 162.56 cm 09-21-2016 - 09-21-2016 [facility] Surg ical [facility] ([id number]) Pulse (Heart Rate) 77 /min 07-24-2020 [facility] ([id number]) Pulse (Heart Rate) 71 /min 05-04-2017 - 05-04-2017 [facility] S urgical Associates (35774) Pulse Oximetry 98 % 05-04-2017 - 05-04-2017 [facility] Surg ical [facility] (40465) Respiratory Rate 20 /min 05-04-2017 - 05-04-2017 [facility] Diana gical [facility] ([id number]) Weight 101.7 kg 05-04-2017 - 05-04-2017 [facility] S[facility] (64395) Weight 105.45 kg 09-21-2016 - 09-21-2016 [facility] Surg ical [facility] ([id number]) Encounters Date Type Reason Provider Location 08-01-2017 - Ambulatory [facility] 08-01-2017 ([id number]) 10-26-2018 - Evaluation and PIERRE Cobian ty:R 11-03-2018 management of RAQUEL DUNN inpatient VINICIO GAN 10-23-2018 - Evaluation and CITLALY DUNN Facilit y:A 10-26-2018 management of VINICIO FARLEY [facility] DUMONT 07-24-2020 - Patient encounter Malignant neoplasm Sariah [place] [facility] 07-24-2020 procedure of upper-outer Vanesa (Sw) Juan Manuel ogy quadrant of female Vanesa (Sw) Juan Manuel breast Comment: Malignant neoplasm of upper- outer quadrant of left breast in female, estrogen receptor positive ( HCC) (Primary Dx) 10-02-2018 - Patient encounter CITLALY FARLEY Facility:A 10-03-2018 procedure SHAUN YANG 07-01-2020 - Refill Secondary Sariah [place] Hemat[facility]/O [place]colo 07-01-2020 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 Comment: Refill Request Procedures Procedure Name Date Provider Location Dietary management 05-04-2017 - [facility] Surgical education, guidance, and 05-04-2017 [facility] ([id number]) counseling Follow Up Appt Other 05-04-2017 - Eliana Hancock MD [facility] Tony rgical 05-04-2017 Associates (4469 1) Screening for malignant 05-04-2017 [facility] Surg ical neoplasm of colon [facility] (44 691) Follow-up visit 09-21-2016 - Jarod Chavez [facility] Surgica l 09-23-2016 MD [facility] ([id number] 1) *Hepatic Function Panel 08-24-2016 - Jarod Chavez [facility] Surgical 08-25-2016 MD [facility] (4469 1) CBC W Auto Differential 08-24-2016 - Jarod Chavez [facility] Surgical panel - Blood 08-25-2016 MD [place] (4469 1) Chest x-ray 4/> views 08-24-2016 - Jarod Chavez [facility] S urgical 09-23-2016 MD [facility] ([id number] 1) Follow Up Appt 2 weeks 08-24-2016 - Jarod Chavez [facility] Surgical 08-25-2016 MD [facility] ([id number] 1) Follow Up after Imaging/labs 08-10-2016 - Jarod jim [facility] Surgical 08-25-2016 MD [facility] (4469 1) Mammogram, both breasts 08-10-2016 - Jarod Chavez [facility] Surgical 08-11-2016 MD [facility] (4469 1) Us exam, breast(s) 08-10-2016 - Jarod Chavez [facility] Surg ical 08-11-2016 MD [place] ([id number] 1) Mammography 01-24-2013 - [facility] 01-24-2013 ([id number]) Follow Up Appt Other 04-11-2012 - Mejia Lozano MD [facility] Surgi ev 04-11-2012 Associates ([id number] 1) *BMP 01-31-2012 - Mejia Lozano MD [facility] Surgical 02-02-2012 [facility] ([id number] 1) *CBC with Differential 01-31-2012 - Mejia Lozano MD [facility] Diana gical 02-02-2012 [facility] ([id number] 1) BNP 01-31-2012 - Mejia Lozano MD [facility] Surgical 02-02-2012 [facility] (4469 1) Echocardiography 01-31-2012 - Mejia Lozano MD [facility] Surgical 02-02-2012 [facility] ([id number] 1) Electrocardiogram, complete 01-31-2012 - Mejia Lozano MD [facility] Surgical 01-31-2012 Associates ([id number] 1) Follow Up Appt 2 months 01-31-2012 - Mejia Lozano MD [facility] Tony rgical 01-31-2012 [facility] (4469 1) Nuclear stress test 01-31-2012 - Mejia Lozano MD [facility] Surgic al -adenosine 02-02-2012 [facility] (4469 1) Thyroid stimulating hormone 01-31-2012 - Mejia Lozano MD [facility] Surgical (TSH) 02-02-2012 [facility] (4469 1) Colonoscopy 10-19-2004 - [facility] 10-19-2004 ([id number]) Plan of Treatment Plan Description Date Location DTAP,TDAP,TD (2 - Td) DTAP,TDAP,TD (2 - Td) 01-07-2023 - [facility] 01-07-2023 ([id number]) INFLUENZA (#1) INFLUENZA (#1) 2020 - [facility] 07-14-2020 (23559) ADVANCE DIRECTIVE ADVANCE DIRECTIVE 2018 - [facility] inic DISCUSSION DISCUSSION 2018 (18032) BONE DENSITY BONE DENSITY 2018 - [facility] 2018 ([id number]) PNEUMOVAX AGE 65 AND OVER PNEUMOVAX AGE 65 AND OVER 2018 - [facility] WITH 5YR LOOKBACK (#1) WITH 5YR LOOKBACK (#1) 2018 ([id number]) Appointment Appointment 05-22-2017 - [facility] Surgical 05-22-2017 Associates (4469 1) Appointment Appointment 05-04-2017 [facility] Surgical 05-04-2017 [facility] (4469 1) Colonoscopy Colonoscopy 05-04-2017 [facility] Surgical 05-04-2017 [facility] (4469 1) Follow Up Appt Other Follow Up Appt Other 05-04-2017 [facility] Tony rgical 05-04-2017 [facility] (4469 1) Follow Up as needed Follow Up as needed 09-21-2016 [facility] Surg ical 09-23-2016 Associates ([id number] 1) Primary Care Physician Primary Care Physician 09-21-2016 [facility] Surgical Haim HubbardeyHaim Albarraneye 09-30-2016 Trevor culver ([id number]) [facility], [address] [facility], [address], [place] [address], [address], [place], [place], [address] [place], [address] Oncology Referral no information 09-12-2016 [facility] Surgical Frankie Khan MD, 09-12-2016 [facility] (4 [id number]) [facility], [address], [place], [address] *Hepatic Function Panel *Hepatic Function Panel 08-24-2016 [facility] Surgical 08-25-2016 [facility] ([id number] 1) *CBC *CBC 08-24-2016 - [facility] Surgical 08-25-2016 [facility] (4469 1) Chest XRAY Chest XRAY 08-24-2016 [facility] Surgical 09-23-2016 [facility] ([id number] 1) Follow Up Appt 2 weeks Follow Up Appt 2 weeks 08-24-2016 - [facility] Surgical 08-25-2016 [facility] ([id number] 1) Oncology Referral Tao Oncology Referral Tao 08-24-2016 [facility] Chidi Morgan MD, [address] Morgan MD, [address] 08-24-2016 [facility] ([id number]) [place], [address] [place], [address] Stereotactic localization Stereotactic localization 08-11-2016 - [facility] Surgical guidance for breast guidance for breast 08-11-2016 Associat meño (68670) biopsy biopsy Follow Up after Follow Up after 08-10-2016 - [facility] Surgical Imaging/labs Imaging/labs 08-25-2016 [facility] ([id number] 1) Mammogram, Diagnostic, Mammogram, Diagnostic, 08-10-2016 [facility] Surgical both breasts both breasts 08-11-2016 [facility] ([id number] 1) US Breast(s) US Breast(s) 08-10-2016 - [facility] Surgical 08-11-2016 [facility] (4469 1) LIPID SCREEN LIPID SCREEN 04-30-2015 - [facility] 04-30-2015 ([id number]) COLONOSCOPY COLONOSCOPY 10-19-2014 - [facility] 10-19-2014 (28021) MAMMOGRAM MAMMOGRAM 01-24-2014 - [facility] 01-24-2014 (05442) DIABETES SCREEN DIABETES SCREEN 04-30-2013 - [facility] 04-30-2013 ([id number]) Follow Up Appt Other Follow Up Appt Other 04-11-2012 - [facility] Tony rgical 04-11-2012 [facility] ([id number] 1) *BMP *BMP 01-31-2012 [facility] Surgical 02-02-2012 [facility] (4469 1) *CBC with Differential *CBC with Differential 01-31-2012 - [facility] Surgical 02-02-2012 [facility] ([id number] 1) *Brain Natriuretic *Brain Natriuretic 01-31-2012 [facility] Surgic al Peptide BNP Peptide BNP 02-02-2012 [facility] (4469 1) Echocardiogram (complete) Echocardiogram (complete) 01-31-2012 [facility] Surgical 01-31-2012 [facility] (4469 1) EKG (In office) EKG (In office) 01-31-2012 [facility] Surgical 01-31-2012 [facility] ([id number]) Follow Up Appt 2 months Follow Up Appt 2 months 01-31-2012 - [facility] 01-31-2012 [facility] ([id number]) Nuclear stress test Nuclear stress test 01-31-2012 [facility] Surg ical -adenosine -adenosine 01-31-2012 [facility] ([id number]) *TSH *TSH 01-31-2012 [facility] 02-02-2012 [facility] ([id number]) SHINGRIX VACCINE (1 of 2) SHINGRIX VACCINE (1 of 2) 2003 - [facility] 2003 ([id number]) ANNUAL PCP TEAM CHRONIC ANNUAL PCP TEAM CHRONIC 1971 - [facility] DISEASE VISIT DISEASE VISIT 1971 ([id number]) BP CONTROLLED (<130/80) BP CONTROLLED (<130/80) 1971 - [facility] 1971 ([id number]) HEPATITIS C SCREENING HEPATITIS C SCREENING 1971 - [facility] 1971 ([id number]) Patient education no information [facility] ([id number] 1) no information [facility] ([id number]) Immunizations Vaccine Notes Status Date Location Tdap (Age 7+) tetanus toxoid, (completed) 01-07-2013 - [facility]inic reduced diphtheria 01-07-2013 ([id number]) toxoid, and acellular pertussis vaccine, adsorbed Payers Payer Name Policy Number Location MEDICARE [id number] [facility] (44 195) MEDICARE PART A [employer] [id number] [facility] ([place]) ([id number]) MMO [id number] [facility] (44 195) [employer] ([place]) [id number] [employer] [facility] ([place]) ([id number]) [id number] [facility] [place] (55060) [id number] [facility] [place] (16291) [id number] [facility] [place] (07846) The following information is from the original human readable contentNo Payer Records FoundNo Payer Records FoundNo Payer Records Found Social History Type Social History Date Location Description Tobacco smoking status Never smoker 01-22-2020 - [facility] NHIS 07-24-2020 ([id number]) Tobacco use and Never used 01-22-2020 - [facility] exposure 07-24-2020 ([id number]) Alcohol intake Current non-drinker of 01-22-2020 [facility] alcohol (finding) 07-24-2020 ([id number]) Sex Assigned At Not on file [facility] ([id number]) The following information is from the original human readable contentNo Social History Records FoundNo Social History Records FoundNo Social History Records FoundNo Social History Records FoundNo Social History Records Found Summary Purpose Family History No Family History Records FoundNo Family History Records FoundNo Family History Records Found Advance Directives No Advanced Directives Records Found Documents on File Type Date Recorded 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 Andrade Routine gynecological examination 04/29/20102011 Overview: [facility], [facility] [place] Uterine prolapse without mention of vaginal wall prolapse 01/23/2012 Problem Noted Date Resolved Date Routine general medical examination at a [facility] 010 01/23/2012 facility Overview: 04/29/2010, from Dr. Andrade Routine gynecological examination 04/29/20102011 Overview: [facility], [facility] [place] Uterine prolapse without mention of vaginal wall prolapse 01/23/2012 Problem Noted Date Resolved Date Routine general medical examination at a [facility] 010 01/23/2012 facility Overview: 04/29/2010, from Dr. 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 Per Dr. Jones's previous note: H/o hypertension. She was found to have an abnormality in the left breast on a screening mammogram. She underwent a diagnostic mammogram and ultrasound which was highly suspicious for malignancy in thebreast. She was referred to Dr. Chavez. ?? She underwent a left breast core needle biopsy. Pathology significant for invasive ductal carcinoma,nuclear grade 2. ER/UT both >95%. Moderate ER and strong UT. HER2 2+. Non-amplified by FISH. ?? Patient underwent a lumpectomy along with sentinel lymph node biopsy on 09/07/2016. In the lumpectomy specimen there was a single focus of invasive carcinoma measuring 1.5 cm in size. Overall grade was2. Closest margin was 2.5 mm laterally. Lymphovascular invasion was not identified. One of 2 lymph nodes was positive for a macro metastasis measuring 4 x 1.88 mm. ? She completed radiation to the left breast. She had no complications. Treatment was done at Dr. Albert office. ?? Oncotype Dx test. Recurrence score of 18 suggesting 12% 5 yr risk of mortality and/or recurrence. ? Current therapy:Arimidex Began 2016. ? No complaints. ?? Appetite:Very good.?Energy level:I'm tired a lot. 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 Denies fevers?or recent illness. Resp:denies?cough?or sob, occ. young because I'm out of shape. Cardiac:denies chest pain/palpitations GI:denies abd pain, n/v, moving bowels regularly I get constipated sometimes from taking iron. :denies dysuria/hematuria Extrem:h/o arthritis to back/hips/knees-chronic (both hips replaced) s/p b/l hip replacement in her 40's Endo:hot flashes I don't get them much anymore. Neuro:occ. hand numbness r/t carpal tunnel, had surgery to R wrist for carpal tunnel?my toes have been numb for years-since all my surgeries. Skin:denies rashes/lesions Heme:denies bleeding The ROS is otherwise negative. Past medical history, appointments, medications, allergies reviewed. No changes. EXAM: BP 134/70 Pulse 77 Temp 36.6 ?C (97.9 ?F) (Temporal) Wt 106.1 kg (234 lb) BMI 40.95 kg/m? APPEARANCE Well appearing, alert, in no acute distress, well-hydrated, well nourished. HEART RRR with normal S1 and S2, no murmurs LUNG clear to auscultation BREAST FEMALE no mass/nodule b/l, L radiation changes/scar to L lower/inner LYMPH NODES No cervical lymphadenopathy, No supraclavicular lymphadenopathy and No axillary lymphadenopathy. ABDOMEN bowel sounds normoactive, soft, non-tender, non-distended, without organomegaly or palpable masses EXTREMITIES No edema NEURO Awake, alert and oriented x 3, Normal gait and No involuntary motions. SKIN Skin color, texture, turgor normal, no suspicious rashes or lesions ASSESSMENT/PLAN: 1. Malignant neoplasm of upper-outer quadrant of left breast in female, estrogen receptor positive (HCC) - ICD9: 174.4, V86.0, ICD10: C50.412, Z17.0 pT1c (1.5 cm; grade 2; no ALI) pN1 MX ER/UT positive, HER-2 nonamplified invasive ductal carcinoma left breast. Oncotype Dx-Recurrence score of 18. S/p lumpectomy along with sentinel lymph node biopsy on 09/07/2016. S/p radiation-Dr. Albert office. - ?No concerning findings on exam. - ?Arimidex-tolerating well overall-had arthritis prior to AI. - Reviewed mammogram with pt. - ?B/l?Mammogram due March 2021. Pt. has this done at [facility]. - ?Follow up in 6 months. - ?Pt. aware to call office with any questions/concerns. ? ? The patient indicates understanding of these issues and agrees with the plan. ? All documentation from previous visit of 01/22/20-Dr. Jones/myself was copied and pasted, documentation has been reviewed and edited as necessary for today's visit. ? ? Sariah Palacios APRN.HEALTH POLICY ANALYST documented in this encounterVanesa Serrano) - 07/24/2020 4:12 PM EDTSOCIAL WORK DISTRESS ASSESSMENT Referral made due to:Moderate distress Contact was made: By telephone call with patient Problems Addressed: Practical: N/A Family: Dealing with children Emotional: Worry Spiritual Concerns: N/A Physical Problems: Fatigue Exercising: N/A Stress Management: Yes Is the patient's distress related to a change in quality of life? No Patient with current Suicidal Ideation: No MENTAL HEALTH HISTORY: No Substance Use and Treatment History: denied History of Abuse: denied History of combat/trauma: No INTERVENTION/PLAN: Monitor patient response to treatment Communicate pertinent medical/psychosocial information to [facility] team Provide emotional support to patient/family Provided education on distress and screening process Continue follow up as needed Resources and Referrals: ? Internal: NA ? External: N/A Follow up appointment with FELICIA in: RULA DUARTE called patient on this day to monitor MH symptoms followingOV. Patient reports she scored high on the distress screening due to the fact that she has been homeschooling her three grandchildren recently due to COVID. Patient reports this is week 2 or 3 and she is still working on getting into a routine with this. Patient denies current needs and states that she has a strong support system if she really needs assistance with this. She states the older grandchild is a freshman and does not require much assistance, which makes it somewhat easier. Patient is agreeable to reaching out if any needs arise. TATUM Benítez documented in this encounter Additional Source Comments FOR RECORDS PERTAINING TO PATIENTS WHO ARE OR HAVE BEEN ENROLLED IN A CHEMICAL DEPENDENCY/SUBSTANCE ABUSE PROGRAM, SOME INFORMATION MAY BE OMITTED. This clinical summary was aggregated from multiple sources. Caution should be exercised in using it in the provision of clinical care. This summary normalizes information from multiple sources, and as a consequence, information in this document may materially changethe coding, format and clinical context of patient data. In addition, data may be omittedin some cases. CLINICAL DECISIONS SHOULD BE BASED ON THE PRIMARY CLINICAL RECORDS. [facility] provides no warranty or guarantee of the accuracy or completeness of information in this document. UNRECOGNIZED CONTENT PROVIDED BELOW FOR UNRECOGNIZED SECTION INFORMATION SOURCE DATE CREATED AUTHOR AUTHOR'S ORGANIZATIO N 05/09/2018 [facility] DATE CREATED AUTHOR AUTHOR'S ORGANIZATIO N 11/20/2018 [facility] DATE CREATED AUTHOR AUTHOR'S ORGANIZATIO N 07/25/2020 [facility] UNRECOGNIZED CONTENT PROVIDED BELOW FOR UNRECOGNIZED SECTION Source Comments In the event this information is protected by the Federal Confidentiality of Alcohol and Drug Abuse Patient Records regulations: The Federal rules restrict any use of the information to criminally investigate or prosecute any alcohol or drug abuse patient.[facility] the event this information is protected by the Federal Confidentiality of Alcohol and Drug Abuse Patient Records regulations: The Federal rules restrict any use of the information to criminally investigate or prosecute any alcohol or drug abuse patient.[facility] the event this information is protected by the Federal Confidentiality of Alcohol and Drug Abuse Patient Records regulations: The Federal rules restrict any use of the information to criminally investigate or prosecute any alcohol or drug abuse patient.[facility] UNRECOGNIZED CONTENT PROVIDED BELOW FOR UNRECOGNIZED SECTION Reason for Visit Reason Onset Date Comments Refill Request 07/01/2020 Reason Comments Established Patient UNRECOGNIZED CONTENT PROVIDED BELOW FOR UNRECOGNIZED SECTION Miscellaneous Notes Telephone Encounter - Michelle Hale - 07/01/2020 9:45 AM EDTPatient called requesting refill on Anastrozole 1mg Please call [phone] Thank you Michelle Shelby documented in this encounter UNRECOGNIZED CONTENT PROVIDED BELOW FOR UNRECOGNIZED SECTION Nursing Notes Mariluz Archer LPN - 07/24/2020 8:35 AM EDTEst patient. Six month OV. Mariluz Archer LPN documented in this encounter
== END ==
PROVIDERS: PCP Family Medicine; Referring Provider Nurse Practitioner; Visit Provider Nurse Practitioner
DX: C50.412 Malignant neoplasm of upper-outer quadrant of left female breast (principal); Z17.0 Estrogen receptor positive status [ER+]; Z12.31 Encounter for screening mammogram for malignant neoplasm of breast
CPT/HCPCS: 77063; 77067

== ENCOUNTER → 2020-04-03 09:58 | Outpatient (CLI) | payer MEDICARE, OTHER, SELFPAY ==
[2020-04-03 12:23] LABS: Absolute Lymphocyte Count 1.27 X10^3/uL (0.83-4.51); Absolute Neutrophil Count 2.8 X10^3/uL (2.0-7.7); Basophil# 0.03 X10^3/uL; Basophil% 0.6 % (0-1); Eosinophil# 0.25 X10^3/uL; Eosinophils% 5.3 % (0-5); Hematocrit 38.8 % (37-47); Hemoglobin 12.3 g/dL (12.0-15.0); Lymphocyte # 1.27 X10^3/ul (4.0); Lymphocyte % 26.9 % (19-41); Mean Corp Hgb Conc 31.7 g/dL (32-36); Mean Corpuscular Hgb 28.1 pg (27.0-32.0); Mean Corpuscular Volume 88.6 fL (81-99); Mean Platelet Vol. 9.8 fl (6.2-12.0); Monocyte# 0.41 X10^3/uL; Monocyte% 8.7 % (0-10); NRBC Flagged by Analyzer 0 % (0-5); Neutrophil # 2.75 X10^3/uL (2.7-7.7); Neutrophil % 58.3 % (47-70); Platelet Count 254 K/mm3 (150-450); RBC Distribution Width CV 14.2 % (11.6-14.6); RBC Distribution Width SD 45.6 fl (35.1-43.9); Red Blood Count 4.38 M/mm3 (4.2-5.4); White Blood Count 4.7 K/mm3 (4.4-11.0)
[2020-04-03 12:54] LABS: Vitamin B12 746 pg/mL (211-911)
[2020-04-03 13:11] LABS: Hemoglobin A1c 5.7 % (3.8-5.6)
[2020-04-03 13:12] LABS: Ferritin 27 ng/mL (8-252); Iron 51 ug/dL (50-170); T4 Free Direct 1.15 ng/dL (0.76-1.46); Thyroid Stim Hormone (TSH) 0.93 uIU/mL (0.358-3.74)
--- OUTSIDE RECORDS SUMMARY | 2020-08-25 15:58 | XMS RPT_ITS | CCD ---
:1955 External Reference #:[id number] Author Organization [facility] Care Team Providers Name Role Phone [...] acetaminophen / GI upset Moderate, 01-30-2012 - [facility] Surgical HYDROcodone [facility] (234 53) acetaminophen / GI Upset 10-05-2005 - [facility] inic HYDROcodone Other [place] Translations: [ Repository HYDROCODONE-ACETAMINOPH EN] codeine Translations: [ GI Upset Moderate, 10-05-2005 - [facility] Surgical CODEINE] Moderate [facility] (772 93) Medications Medication Name Sig Date Prescriber Location anastrozole anastrozole (ARIMIDEX) 07-07-2020 [facility] 1 mg tablet Associates (825 10) Indications: 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 90 tablet 3 07/01/2020 Active ANASTROZOLE 1 MG TABS One 05-04-2017 [facility] Tony rgical tablet by mouth daily Associates (31472) ANASTROZOLE [id number] Rosalee Kohli Comment: Take 1 tablet by mouth once daily. apremilast apremilast (OTEZLA) 30 mg 07-24-2020 [facility] Provider [facility] tablet Take 30 mg by mouth ( 47465) once daily. 0 07/24/2020 Discontinued Comment: Take 30 mg by mouth once amy ly. aspirin ADULT ASPIRIN EC LOW STRENGTH 81 05-04-2017 [facility] Surgical Associates (85197) MG TBEC One tablet by mouth daily ASPIRIN [id number] Rosalee Kohli ASPIRIN 81 MG TABS One tablet 01-31-2012 - 08-10-2016 [facility] Surgical [facility] by mouth daily as needed (61079) ASPIRIN [id number] Mejia Lozano MD ADULT ASPIRIN EC LOW STRENGTH 01-31-2012 - 08-10-2016 [facility] Surgical [facility] 81 MG TBEC One tablet by mouth ( 51321) daily ASPIRIN [id number] Rosalee Kohli cyclobenzaprine CYCLOBENZAPRINE HCL 10 MG 01-30-2012 [facility] Surgical TABS As needed As sociates CYCLOBENZAPRINE HCL (09954) [id number] Michelle Norton RN hydroCHLOROthiazide HYDROCHLOROTHIAZIDE 25 MG 01-30-2012 - [facility] Surgical TABS One tablet by mouth 05-04-2017 Ass ociates daily (32052) HYDROCHLOROTHIAZIDE [id number] Rosalee Kohli hydroCHLOROthiazide / LISINOPRIL-HYDROCHLOROTHI 05-04-2017 [facility] Surgical lisinopril AZIDE 10-12.5 MG TABS One As sociates tablet by mouth daily (27387 ) LISINOPRIL-HYDROCHLOROTHI AZIDE [id number] Rosalee Kohli lisinopril-hydrochlorothiazide [facility] Provider [facility] (PRINZIDE,ZESTORETIC) 10-12.5 mg per tablet (86552) Take 1 tablet by mouth once daily. 0 Active Comment: Take 1 tablet by mouth once daily. lisinopril LISINOPRIL 5 MG TABS One 02-02-2012 Michelle Norton RN [facility] Surgical Associates tablet by mouth daily (83294 ) LISINOPRIL [id number] Mejia Lozano MD LISINOPRIL 2.5 MG TABS two tabs once 05-04-2017 [facility] Surgical Associates (08027) daily LISINOPRIL [id number] Rosalee Kohli LORazepam ATIVAN 1 MG TABS 1 08-11-2016 - [facility] Surgi ev tablet PO before 05-04-2017 Associates procedure (89501) LORAZEPAM [id number] Rosalee A Seun meloxicam MOBIC 7.5 MG TABS One 01-30-2012 - [facility] Tony rgical tablet by mouth daily 08-10-2016 Associ ates MELOXICAM (65047) [id number] Michelle Norton RN methylcellulose CITRUCEL 500 MG TABS 05-04-2017 [facility] Surgical One tablet by mouth Associat es daily (86223) METHYLCELLULOSE (LAXATIVE) [id number] Rosalee A Seun multivitamin tablet multivitamin tablet [facility] Provider C leveland Take 1 tablet by Clinic (659 37) mouth once daily. 0 Active multivitamin tablet Take 1 tablet by mouth [facility] (91735) once daily. 0 Active multivitamin tablet Take 1 tablet by mouth [facility] (83167) once daily. 0 Active Comment: Take 1 tablet by mouth once daily. omeprazole [facility] OMEPRAZOLE 20 MG TBEC One 05-04-2017 [facility] Surgical Associates tablet by mouth daily (29462 ) OMEPRAZOLE [id number] Rosalee A Seun [facility] OMEPRAZOLE 20 MG 05-04-2017 [facility] Surgica l TBEC One tablet by Associates (4 4691) mouth daily OMEPRAZOLE [id number] Rosalee A Kohli omeprazole 20 mg 01-30-2012 - Talib Jalloh (Hist) [facility] Surgical capsule Indications: 08-10-2016 [facility] (69614) GERD (gastroesophageal reflux disease) Take one(1) capsule daily 1/2 hr before meal. 90 capsule 3 12/27/2012 Active Comment: Take one(1) capsule daily 1/ 2 hr before meal. sertraline ZOLOFT 25 MG TABS One 01-30-2012 - [facility] Tony rgical tablet by mouth daily 08-10-2016 Associ bharath (95108) SERTRALINE HCL [id number] Michelle Norton RN triamcinolone TRIAMCINOLONE ACETONIDE 05-04-2017 [facility] Surgical 0.1 % OINT as needed Aracely gregg (75622) TRIAMCINOLONE ACETONIDE [id number] Rosalee Kohli Problems Active Problems Category Problem Name Status Date Location Anxiety disorders Anxiety disorder Active [facility] Tony rgical Associates (442 91) Cancer of breast Primary malignant Active 08-24-2016 - [facility] Tony rgical neoplasm of female breast As sociates (23582) Esophageal disorders Gastroesophageal reflux Active 0 - [facility] disease (88566) Essential hypertension Hypertensive disorder Active 5 - [facility] Surgical Associates (44 91) Mood disorders Depressive disorder Active 02-16-2007 - [facility] (97842) Osteoarthritis Osteoarthritis Active 11-10-2005 - [facility] Surgica l Associates (443 91) Other nutritional; Overweight Active 05-04-2017 - [facility] Surgi ev endocrine; and Associates (4 8781) metabolic disorders Other nutritional; Obesity Active 11-10-2005 - [facility] endocrine; and (23027) metabolic disorders Other skin disorders Localized scleroderma Active 03-03-2009 - [facility] (07492) Prolapse of female Midline cystocele Active 12-25-2008 - [facility] genital organs (88183) Rheumatoid arthritis Rheumatoid arthritis with Active [facility] Surgical and related disease rheumatoid factor, As sociates (26827) unspecified Secondary malignancies Secondary malignant Active 09-21-2016 - [facility] neoplasm of axillary (56697) lymph nodes Unclassified Screening for malignant Active 05-04-2017 - [facility] Surgical neoplasm of colon Associates (81937) Unclassified Patient encounter status Active 12-27-2012 - [facility] (56073) Past or Other Problems Category Problem Name Status Date Location Abdominal hernia Hiatal hernia Completed 06-16-2010 - [facility] (67996) Anal and rectal Disorder of rectum Completed 12-25-2008 - [facility] conditions (69237) Gastritis and Acute gastritis Completed 10-11-2010 - [facility] linic duodenitis (77124) Nonmalignant breast Mammographic breast Completed 08-10-2016 - [facility] conditions mass [facility] (446 91) Nonspecific chest pain Chest pain, Completed 01-30-2012 - [facility] S urgical unspecified Associates (624 40) Other lower respiratory Dyspnea Completed 01-30-2012 - [facility] Surgical disease Associates (514 05) Pulmonary heart disease Pulmonary embolism Completed 12-11-2008 - [facility] with pulmonary (86754) infarction Spondylosis; Low back pain Completed 02-16-2007 - [facility] ic intervertebral disc (03123) disorders; other back problems Results Result Name Value Range Unit Interpretation Flag Date Location progress on 2020-07 PROGRESS HNO ID: [id number] Normal 07-24-2020 [facility] Author: Vanesa Hua) Juan Manuel [place] ([id number]) Service: ? Author Type: Draw Bench Operator Helper Type: Progress Notes Filed: 07/24/2020 4:15 PM [...] to treatment Communicate pertinent medical/psychosocial information to [facility] team Provide emotional support to patient/family [...] ise. Vanesa TATUM Serrano PROGRESS HNO ID: [id number] Normal 07-24-2020 [facility] Author: Sariah Palacios [place] ([id number]) Service: ? Author Type: Nurse Practitioner Type: [...] for invasive ductal carcinoma, nuclear grade 2. ER/VA both >95%. Moderate ER and strong VA. HER2 2+. Non-amplified by FISH. ?? 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 Oncotype Dx-Recurrence score of 18. S/p lumpectomy along with sentinel lymph node biopsy on 08/14. S/p radiation-Dr. Albert office. - ?No concerning findings on exam. - ?Arimidex-tolerating well overall-had arthritis prior to A I. - Reviewed mammogram with pt. - ?B/l?Mammogram due March 2021. Pt. has this done at [facility]. - ?Follow up in 6 months. - ?Pt. aware to call office with any questions/concerns. ? ? The patient indicates understanding of these issues and agre es with the plan. ? All documentation from previous visit of 01/22/20-Dr. Jones/praneeth yself was copied and pasted, documentation has been reviewed and edite d as necessary for today's visit. ? ? Sariah Palacios, CHANNING.JOB ESTIMATOR cnsw on 2020-07-24 CNSW Social Work (HEMAWS) Normal [address] [facility] CR LEE ([id number]) 1955 [facility] Date Time Provider Department (00962) 07/24/20 VANESA SERRANO (SW) During your visit [...] 2020-07-14 CNOVSP Visit (SP) Office (ELDON) Normal [facility] [place] LEE ([id number]) 1955 [place] Date Time Provider Department (10328) 07/24/20 9:00 AM SARIAH PALACIOS During your visit today, we recorded the following informati on about you: Temperature Pulse Blood pressure Weight 97.9 degrees 77/minute 134/70 106.1 kg Mariluz Archer LPN 07/24/2020 9:10 AM Signed Est patient. Six month OV. Mariluz Palacios APRN.JOB ESTIMATOR 07/24/2020 9:38 AM Signed Chief Complaint Patient [...] for invasive ductal carcinoma, nuclear grade 2. ER/VA both >95%. Moderate ER and strong VA. HER2 2+. Non-amplified by FISH. ?? 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 Oncotype Dx-Recurrence score of 18. S/p lumpectomy along with sentinel lymph node biopsy on 08/14. S/p radiation-Dr. Albert office. - ?No concerning findings on exam. - ?Arimidex-tolerating well overall-had arthritis prior to A I. - Reviewed mammogram with pt. - ?B/l?Mammogram due March 2021. Pt. has this done at [facility]. - ?Follow up in 6 months. - ?Pt. aware to call office with any questions/concerns. ? ? The patient indicates understanding of these iss ues and agrees with the plan. ? All documentation from previous visit of 01/22/20-Dr. Praneeth harry/myself was copied and pasted, documentation shine s been reviewed and edited as necessary for today's visit. ? ? Sariah Palacios, CHANNING.JOB ESTIMATOR Referring Provider: SARIAH PALACIOS [[id number]] Allergies As of Date: 07/24/2020 Noted Allergy [...] 03/03/2009 More... Routine general medical examination at [facility]*04/29/2010 0 01/23/2012 Class: Chronic More... Routine gynecological [...] OBSOLETE Refill (HEMAWS) Normal 07-01-[address] [facility] CR LEE ([id number]) 1955 [facility] Date Time Provider Department (71302) 07/01/20 SARIAH PALACIOS During your visit today, we recorded the following informati on about you: Michelle Westvenkat Pss 07/01/2020 9:46 AM Signed Patient called requesting refill on Anastrozole 1mg Please call [phone] Thank you Michelle Westvenkat Pss Allergies As [...] More... Routine general medical examination at [facility]*04/29/2010 0 01/23/2012 Class: Chronic More... Routine [...] on 2020-04-09 WESLEYN Telephone (ELDON) Normal 04-09-[address] [facility] CR LEE ([id number]) 1955 F [place] Date Time Provider Department (34545) 04/09/20 SARIAH PALACIOS During your visit today, we recorded the following informati on about you: Sariah Palacios APRN.CNP 04/09/2020 3:20 PM Signed Please inform pt. that her dx mamm done at [facility] on 04/08/20 lo oks good. Follow up as scheduled. Sariah Palacios, CHANNING.JOB ESTIMATOR Alisha Orellana, RN, RN 04/09/2020 3:23 PM [...] 03/03/2009 More... Routine general medical examination at [facility]*04/29/2010 0 01/23/2012 Class: Chronic More... Routine gynecological [...] on 2020-04-03 WESLEYN Telephone (ELDON) Normal 04-03-2020 [facility] LEECR GOSS Nan ([id number]) [address] [facility] Time Provider Department (94296) 04/03/20 SARIAH PALACIOS During your visit today, we recorded the following informati on about you: Alesha Thompson [facility] 04/03/2020 12:22 PM Signed Patient called in inquiring about the results of her mammo gram that she had done last week. Please advise. Alesha Palacios APRN.JOB ESTIMATOR 04/03/2020 2:05 PM Signed It was not sent over to us. I spoke with pt. and reviewed mammogram. Please schedule b/l dx mamm/US at [facility] soon. Pt. aware that this is being scheduled. Orders in. Thank you. Sariah Palacios APRN.WESLEY Galeano [facility] 04/03/2020 3:17 PM Signed I called and scheduled patient for diagnostic mammogram and ultrasound at [facility] for 04/08/20 @ 2:00pm. I called Cr and re layed these appointments to her and she stated understanding. Order have been faxed to [facility] scheduling at [phone] Nikos Galeano [facility] Allergies As of Date: 04/03/2020 Noted Allergy [...] Diagnosis:Abnormal mammogram of both breasts [R9 2.8] Order(s):[facility] DIAGNOSTIC BILAT [[id number]] Order #: [id number] FUTURE [employer] BREAST LTD RT [[id number]] Order #: [id number] FUTURE [employer] BREAST LTD LT [[id number]] Order #: [id number] FUTURE Prescriptions as of 04/03/2020 Sig: OTEZLA [...] 04/03/20 progress on 2020-01 PROGRESS HNO ID: [id number] Normal 01-22-2020 [facility] Author: Sariah Palacios [place] ([id number]) Service: ? Author Type: Nurse Practitioner Type: [...] for invasive ductal carcinoma, nuclear grade 2. ER/VA both >95%. Moderate ER and strong VA. HER2 2+. Non-amplified by FISH. ?? 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 2. Encounter for screening mammogram for high-risk patient - ICD9: V76.11, ICD10: Z12.31 - ?No concerning findings on exam. - ?Arimidex-tolerating fairly well except for hot flashes. - ?B/l?Mammogram due March 2020. Pt. has this done at [facility]. - ?Follow up in 6 months-pending mammogram. - ?Pt. aware to call office with any questions/concerns. ? ? The patient indicates understanding of these issues an d agrees with the plan. ? ? ? Sariha Palacios APRN.CNP ? jonovsp on 2020-01-12 1 CNOVSP Visit (SP) Office (ELDON) Normal [facility] CR LEE ([id number]) 1955 [place] Date Time Provider Department ([id number]) 01/22/20 9:00 AM SARIAH PALACIOS During your visit today, we recorded the following informati on about you: Temperature Pulse Blood pressure Weight 98.2 degrees 70/minute 140/90 105.7 kg Sariah Palacios APRN.JOB ESTIMATOR 01/23/2020 10:46 AM Signed Chief Complaint Patient [...] for invasive ductal carcinoma, nuclear grade 2. ER/VA both >95%. Moderate ER and strong VA. HER2 2+. Non-amplified by FISH. ?? 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 2. Encounter for screening mammogram for high-risk patient - ICD9: V76.11, ICD10: Z12.31 - ?No concerning findings on exam. - ?Arimidex-tolerating fairly well except for hot flashes. - ?B/l?Mammogram due March 2020. Pt. has this done at [facility]. - ?Follow up in 6 months-pending mammogram. - ?Pt. aware to call office with any questions/concerns. ? ? The patient indicates understanding of these iss ues and agrees with the plan. ? ? ? Sariah Palacios, CHANNING.JOB ESTIMATOR ? Referring Provider: SARIAH PALACIOS [[id number]] Allergies As of Date: 01/22/2020 Noted Allergy [...] screening ma mmogram for high-risk patient [Z12.31] Order(s):[facility] SCREENING W DRU [[id number]] Order #: [id number] FUTURE Follow-up and Disposition History Recorded Prescriptions [...] 03/03/2009 More... Routine general medical examination at [facility]*04/29/2010 0 01/23/2012 Class: Chronic More... Routine gynecological [...] Auto Volume 24.7 34.0-46.0 % Low 018 [facility] Fraction (Bld) ([place]) (68634) Comment: Performed By: #### CBC, ADIF F, ANEU, APTT, PRO, BMP, GFR, PRALB, TRF ####[place] [address] [address] [place] [address] Hemoglobin mass conc (Bld) 7.9 12.0-16.0 G/dL Low [facility] ([place]) (0000 0) Comment: Performed By: #### CBC, ADIF F, ANEU, APTT, PRO, BMP, GFR, PRALB, TRF ####[place] [address] fes on 2018-11-02 Iron Sat 8 % Normal 11-02-2018 [facility] ([place]) (56105) Comment: Performed By: #### CBC, ADIF F, ANEU, APTT, PRO, BMP, GFR, PRALB, TRF ####[place] [address] TIBC 248 250-500 mcg/dL Low 11-02-2018 [facility] ([place]) (43071) Comment: Performed By: #### CBC, ADIF F, ANEU, APTT, PRO, BMP, GFR, PRALB, TRF ####[place] [address] Iron mass conc 20 37-170 mcg/dL Low 11-02-2018 [facility] ([place]) (16972) Comment: Performed By: #### CBC, ADIF F, ANEU, APTT, PRO, BMP, GFR, PRALB, TRF ####[place] [address] cbc on 2018-10-31 Erythrocyte distribution 15.6 11.5-15.5 % High 10-31 [facility] width Auto Ratio (RBC) ([place]) (04898) Comment: Performed By: #### CBC, ADIF F, ANEU, APTT, PRO, BMP, GFR, PRALB, TRF ####[place] [address] Hematocrit Auto Volume 29.1 34.0-46.0 % Low 018 [facility] Fraction (Bld) ([place]) (99985) Comment: Performed By: #### CBC, ADIF F, ANEU, APTT, PRO, BMP, GFR, PRALB, TRF ####[place] [address] Hemoglobin mass conc (Bld) 9.6 12.0-16.0 G/dL Low [facility] ([place]) (0000 0) Comment: Performed By: #### CBC, ADIF F, ANEU, APTT, PRO, BMP, GFR, PRALB, TRF ####[place] [address] MCH Auto Entitic mass 28.2 27.0-33.0 pg Normal 10-31-20 18 [facility] (RBC) ([place]) (0000 0) Comment: Performed By: #### CBC, ADIF F, ANEU, APTT, PRO, BMP, GFR, PRALB, TRF ####[place] [address] MCHC Auto mass conc 33.0 32.0-36.0 G/dL Normal 10-31-2018 [facility] (RBC) ([place]) (0000 0) Comment: Performed By: #### CBC, ADIF F, ANEU, APTT, PRO, BMP, GFR, PRALB, TRF ####[place] [address] MCV Auto Entitic volume 85.6 80.0-99.0 fL Normal 2017 [facility] (RBC) ([place]) (0000 0) Comment: Performed By: #### CBC, ADIF F, ANEU, APTT, PRO, BMP, GFR, PRALB, TRF ####[place] [address] Platelet mean volume Auto 8.4 6.6-10.5 fL Normal 10-13 [facility] Entitic volume (Bld) ([place]) (60129) Comment: Performed By: #### CBC, ADIF F, ANEU, APTT, PRO, BMP, GFR, PRALB, TRF ####[place] [address] Platelets Auto #/vol 347 150-450 10 3/mcL Normal 8 [facility] (Bld) [facility] ([place]) (43718) Comment: Performed By: #### CBC, ADIF F, ANEU, APTT, PRO, BMP, GFR, PRALB, TRF ####[address] [address] RBC Auto #/vol ([facility]) 3.40 4.10-5.30 10 6/mcL Low 8 [facility] ([place]) (0000 0) Comment: Performed By: #### CBC, ADIF F, ANEU, APTT, PRO, BMP, GFR, PRALB, TRF ####[address] [address] WBC Auto #/vol 7.10 4.50-10.80 10 3/mcL Normal 10-31-2018 [facility] ([place]) (63691) Comment: Performed By: #### CBC, ADIF F, ANEU, APTT, PRO, BMP, GFR, PRALB, TRF ####[address] [address] bmp on 2018-10-31 Calcium mass conc 7.7 8.4-10.1 mg/dL Low 10-31-2018 [facility] ([place]) (26321) Comment: Performed By: #### CBC, ADIF F, ANEU, APTT, PRO, BMP, GFR, PRALB, TRF ####[place] [address] Chloride molar conc 98 98-110 mEq/L Normal 10-31-2018 [facility] ([place]) (47049) Comment: Performed By: #### CBC, ADIF F, ANEU, APTT, PRO, BMP, GFR, PRALB, TRF ####[address] [address] CO2 molar conc 30 22-32 mEq/L Normal 10-31-2018 [facility] ([place]) (26221) Comment: Performed By: #### CBC, ADIF F, ANEU, APTT, PRO, BMP, GFR, PRALB, TRF ####[place] [address] Creatinine mass conc 0.66 0.50-1.20 mg/dL Normal 8 [facility] ([place]) (0000 0) Comment: Performed By: #### CBC, ADIF F, ANEU, APTT, PRO, BMP, GFR, PRALB, TRF ####[address] [address] Electrolyte Balance 8.0 4.0-15.0 mEq/L Normal 10-31-2018 [facility] ([place]) (0000 0) Comment: Performed By: #### CBC, ADIF F, ANEU, APTT, PRO, BMP, GFR, PRALB, TRF ####[address] [address] Glucose mass conc 111 82-115 mg/dL Normal 10-31-2018 [facility] ([place]) (34165) Comment: Performed By: #### CBC, ADIF F, ANEU, APTT, PRO, BMP, GFR, PRALB, TRF ####[address] [address] Potassium molar conc 4.4 3.5-5.0 mEq/L Normal 8 [facility] ([place]) (0000 0) Comment: Performed By: #### CBC, ADIF F, ANEU, APTT, PRO, BMP, GFR, PRALB, TRF ####[address] [address] Sodium molar conc 136 136-145 mEq/L Normal 10-31-2018 [facility] ([place]) (21377) Comment: Performed By: #### CBC, ADIF F, ANEU, APTT, PRO, BMP, GFR, PRALB, TRF ####[address] [address] Urea nitrogen mass conc 14.0 8.0-22.0 mg/dL Normal 2017 [facility] ([place]) (28835) Comment: Performed By: #### CBC, ADIF F, ANEU, APTT, PRO, BMP, GFR, PRALB, TRF ####[place] [address] Urea nitrogen/Creatinine 21.2 10.0-22.0 ratio Normal 10-31 [facility] ratio [facility]atio n ([place]) (40838) Comment: Performed By: #### CBC, ADIF F, ANEU, APTT, PRO, BMP, GFR, PRALB, TRF ####[place] [address] [place] [address] .neuabs on Neutrophil, Absolute 5.00 2.25-8.10 10 3/mcL Normal 8 [facility] ([place]) (40777) Comment: Performed By: #### CBC, ADIF F, ANEU, APTT, PRO, BMP, GFR, PRALB, TRF ####[place] [address] [place] [address] .gfr on 2018-10-31 GFR Non- >60 Normal 10-31 [facility] ([place]) (62668) Comment: Result Comment: GFR Populati on mean [...] ANEU, APTT, PRO, BMP, GFR, PRALB, TRF ####[place] [address] [place] [address] 1977[address] GFR >60 Normal 8 [facility] ([place]) (91274) Comment: Result Comment: GFR Populati on mean [...] ANEU, APTT, PRO, BMP, GFR, PRALB, TRF ####[address] [address] .auto diff on 10-31 Ammonia mass conc 0.70 0.09-1.40 10 3/mcL Normal 10-31-2018 A [facility]) (44107) Comment: Performed By: #### CBC, ADIF F, ANEU, APTT, PRO, BMP, GFR, PRALB, TRF ####[place] [address] Basophils Auto #/vol 0.10 0.00-0.27 10 3/mcL Normal 8 [facility]) (04997) Comment: Performed By: #### CBC, ADIF F, ANEU, APTT, PRO, BMP, GFR, PRALB, TRF ####[address] [address] Basophils/100 WBC Auto ([facility]) 0.9 0.0-2.5 % Normal 1 01-01-2018 [facility] ([place]) (0000 0) Comment: Performed By: #### CBC, ADIF F, ANEU, APTT, PRO, BMP, GFR, PRALB, TRF ####[address] [address] Eosinophils Auto #/vol 0.40 0.00-0.65 10 3/mcL Normal 018 [facility]) (74759) Comment: Performed By: #### CBC, ADIF F, ANEU, APTT, PRO, BMP, GFR, PRALB, TRF ####[address] [address] Eosinophils/100 WBC Auto 4.9 0.0-6.0 % Normal 10-31 [facility] ([place]) ([id number]) Comment: Performed By: #### CBC, ADIF F, ANEU, APTT, PRO, BMP, GFR, PRALB, TRF ####[address] [address] Lymphocytes Auto #/vol 1.00 0.90-4.32 10 3/mcL Normal 018 [facility] ([place]) (15011) Comment: Performed By: #### CBC, ADIF F, ANEU, APTT, PRO, BMP, GFR, PRALB, TRF ####[address] [address] Lymphocytes/100 WBC Auto 14.7 20.0-40.0 % Low 10-31 [facility] ([place]) (35625) Comment: Performed By: #### CBC, ADIF F, ANEU, APTT, PRO, BMP, GFR, PRALB, TRF ####[address] [address] Monocytes/100 WBC Auto ([facility]) 9.8 2.0-13.0 % Normal 1 01-01-2018 [facility] ([place]) (10258) Comment: Performed By: #### CBC, ADIF F, ANEU, APTT, PRO, BMP, GFR, PRALB, TRF ####[address] [address] Neutrophils/100 WBC Auto 69.7 50.0-75.0 % Normal 10-31 [facility] ([place]) ([id number]) Comment: Performed By: #### CBC, ADIF F, ANEU, APTT, PRO, BMP, GFR, PRALB, TRF ####[address] [address] hh on 2018-10-30 Hematocrit Auto Volume 23.6 34.0-46.0 % Low 018 [facility] Fraction (Bld) ([place]) (73347) Comment: Performed By: #### CBC, ADIF F, ANEU, APTT, PRO, BMP, GFR, PRALB, TRF ####[address] [address] Hemoglobin mass conc (Bld) 7.7 12.0-16.0 G/dL Low [facility] ([place]) (0000 0) Comment: Performed By: #### CBC, ADIF F, ANEU, APTT, PRO, BMP, GFR, PRALB, TRF ####[address] [address] pralb on 2018-10-29 Prealbumin mass conc 7.7 18.0-38.0 mg/dL Low 8 [facility] ([place]) (0000 0) Comment: Performed By: #### CBC, ADIF F, ANEU, APTT, PRO, BMP, GFR, PRALB, TRF ####[place] [address] cbc on 2018-10-29 Erythrocyte distribution 15.3 11.5-15.5 % Normal 10-29 [facility] Auto Ratio (RBC) [facility] ([place]) (54060) Comment: Performed By: #### CBC, ADIF F, ANEU, APTT, PRO, BMP, GFR, PRALB, TRF ####[place] [address] Hematocrit Auto Volume 25.6 34.0-46.0 % Low 018 [facility] Fraction (Bld) ([place]) (35976) Comment: Performed By: #### CBC, ADIF F, ANEU, APTT, PRO, BMP, GFR, PRALB, TRF ####[address] [address] Hemoglobin mass conc (Bld) 8.4 12.0-16.0 G/dL Low [facility] ([place]) (0000 0) Comment: Performed By: #### CBC, ADIF F, ANEU, APTT, PRO, BMP, GFR, PRALB, TRF ####[address] [address] MCH Auto Entitic mass 28.3 27.0-33.0 pg Normal 10-29-20 18 [facility] (RBC) ([place]) (0000 0) Comment: Performed By: #### CBC, ADIF F, ANEU, APTT, PRO, BMP, GFR, PRALB, TRF ####[place] [address] MCHC Auto mass conc 32.9 32.0-36.0 G/dL Normal 10-29-2018 [facility] (RBC) ([place]) (0000 0) Comment: Performed By: #### CBC, ADIF F, ANEU, APTT, PRO, BMP, GFR, PRALB, TRF ####[place] [address] MCV Auto Entitic volume 86.1 80.0-99.0 fL Normal 2017 [facility] (RBC) ([place]) (0000 0) Comment: Performed By: #### CBC, ADIF F, ANEU, APTT, PRO, BMP, GFR, PRALB, TRF ####[place] [address] Platelet mean volume Auto 8.3 6.6-10.5 fL Normal 10-13 [facility] Entitic volume (Bld) ([place]) (51983) Comment: Performed By: #### CBC, ADIF F, ANEU, APTT, PRO, BMP, GFR, PRALB, TRF ####[place] [address] Platelets Auto #/vol 200 150-450 10 3/mcL Normal 8 [facility] (d) [facility] ([place]) (55453) Comment: Performed By: #### CBC, ADIF F, ANEU, APTT, PRO, BMP, GFR, PRALB, TRF ####[place] [address] RBC Auto #/vol (Bld) 2.98 4.10-5.30 10 6/mcL Low 8 [facility] ([place]) (0000 0) Comment: Performed By: #### CBC, ADIF F, ANEU, APTT, PRO, BMP, GFR, PRALB, TRF ####[address] [address] WBC Auto #/vol 5.80 4.50-10.80 10 3/mcL Normal 10-29-2018 [facility] ([facility]) [facility] ([place]) (03409) Comment: Performed By: #### CBC, ADIF F, ANEU, APTT, PRO, BMP, GFR, PRALB, TRF ####[address] [address] bmp on 2018-10-29 Creatinine mass conc 0.66 0.50-1.20 mg/dL Normal 8 [facility] ([place]) (0000 0) Comment: Performed By: #### CBC, ADIF F, ANEU, APTT, PRO, BMP, GFR, PRALB, TRF ####[place] [address] Urea nitrogen/Creatinine mass 22.7 10.0-22.0 ratio High 10-29-2018 [facility] ([place]) (55887) Comment: Performed By: #### CBC, ADIF F, ANEU, APTT, PRO, BMP, GFR, PRALB, TRF ####[address] [address] Calcium mass conc 7.3 8.4-10.1 mg/dL Low 10-29-2018 [facility] ([place]) (11483) Comment: Performed By: #### CBC, ADIF F, ANEU, APTT, PRO, BMP, GFR, PRALB, TRF ####[address] [address] Chloride molar conc 100 98-110 mEq/L Normal 10-29-2018 [facility] ([place]) (35222) Comment: Performed By: #### CBC, ADIF F, ANEU, APTT, PRO, BMP, GFR, PRALB, TRF ####[place] [address] CO2 molar conc 30 22-32 mEq/L Normal 10-29-2018 [facility] ([place]) (17168) Comment: Performed By: #### CBC, ADIF F, ANEU, APTT, PRO, BMP, GFR, PRALB, TRF ####[place] [address] Electrolyte Balance 8.0 4.0-15.0 mEq/L Normal 10-29-2018 [facility]) (0000 0) Comment: Performed By: #### CBC, ADIF F, ANEU, APTT, PRO, BMP, GFR, PRALB, TRF ####[place] [address] Glucose mass conc 105 82-115 mg/dL Normal 10-29-2018 [facility] ([place]) (93417) Comment: Performed By: #### CBC, ADIF F, ANEU, APTT, PRO, BMP, GFR, PRALB, TRF ####[place] [address] Potassium molar conc 4.6 3.5-5.0 mEq/L Normal 8 [facility] ([place]) (0000 0) Comment: Performed By: #### CBC, ADIF F, ANEU, APTT, PRO, BMP, GFR, PRALB, TRF ####[place] [address] Sodium molar conc 138 136-145 mEq/L Normal 10-29-2018 [facility] ([place]) (57338) Comment: Performed By: #### CBC, ADIF F, ANEU, APTT, PRO, BMP, GFR, PRALB, TRF ####[address] [address] Urea nitrogen mass conc 15.0 8.0-22.0 mg/dL Normal 2017 [facility] ([place]) (57071) Comment: Performed By: #### CBC, ADIF F, ANEU, APTT, PRO, BMP, GFR, PRALB, TRF ####[address] [address] .neuabs on Neutrophil, Absolute 3.60 2.25-8.10 10 3/mcL Normal 8 [facility] ([place]) (97507) Comment: Performed By: #### CBC, ADIF F, ANEU, APTT, PRO, BMP, GFR, PRALB, TRF ####[place] [address] .gfr on 2018-10-29 GFR >60 Normal 8 [facility] ([place]) (98581) Comment: Result Comment: GFR Populati on mean [...] ANEU, APTT, PRO, BMP, GFR, PRALB, TRF ####[address] [address] GFR Non- >60 Normal 10-29 -2017 [facility] ([place]) (39765) Comment: Result Comment: GFR Populati on mean [...] ANEU, APTT, PRO, BMP, GFR, PRALB, TRF ####[address] [address] .auto diff on 10-29 Ammonia mass conc 0.70 0.09-1.40 10 3/mcL Normal 10-29-2018 A [facility]) (26496) Comment: Performed By: #### CBC, ADIF F, ANEU, APTT, PRO, BMP, GFR, PRALB, TRF ####[address] [address] Basophils Auto #/vol 0.00 0.00-0.27 10 3/mcL Normal 8 [facility]) (28632) Comment: Performed By: #### CBC, ADIF F, ANEU, APTT, PRO, BMP, GFR, PRALB, TRF ####[address] [address] Basophils/100 WBC Auto (Bld) 0.8 0.0-2.5 % Normal 1 12-30-2017 [facility] ([place]) (0000 0) Comment: Performed By: #### CBC, ADIF F, ANEU, APTT, PRO, BMP, GFR, PRALB, TRF ####[address] [address] Eosinophils Auto #/vol 0.40 0.00-0.65 10 3/mcL Normal 018 [facility]) (11132) Comment: Performed By: #### CBC, ADIF F, ANEU, APTT, PRO, BMP, GFR, PRALB, TRF ####[address] [address] Eosinophils/100 WBC Auto (Bld) 6.4 0.0-6.0 % High 10-29-2018 [facility] ([place]) (0000 0) Comment: Performed By: #### CBC, ADIF F, ANEU, APTT, PRO, BMP, GFR, PRALB, TRF ####[address] [address] Lymphocytes Auto #/vol 1.10 0.90-4.32 10 3/mcL Normal [address] [place] [address]) (63163) Comment: Performed By: #### CBC, ADIF F, ANEU, APTT, PRO, BMP, GFR, PRALB, TRF ####[address] [address] Lymphocytes/100 WBC Auto 18.8 20.0-40.0 % Low 10-29 [facility]) (98377) Comment: Performed By: #### CBC, ADIF F, ANEU, APTT, PRO, BMP, GFR, PRALB, TRF ####[address] [address] Monocytes/100 WBC Auto 11.7 2.0-13.0 % Normal [address] [place] [address]) (85197) Comment: Performed By: #### CBC, ADIF F, ANEU, APTT, PRO, BMP, GFR, PRALB, TRF ####[address] [address] Neutrophils/100 WBC Auto 62.3 50.0-75.0 % Normal 10-29 [facility]) (85893) Comment: Performed By: #### CBC, ADIF F, ANEU, APTT, PRO, BMP, GFR, PRALB, TRF ####[address] [address] cmp on 2018-10-27 Albumin/Globulin mass ratio 0.7 0.9-1.6 ratio Low [facility] ([place]) (17096) Comment: Performed By: #### CBC, ADIF F, ANEU, APTT, PRO, BMP, GFR, PRALB, TRF ####[address] [address] ALP enzyme act/vol 63 38-126 U/L Normal 10-27-2018 [facility] ([place]) (71879) Comment: Performed By: #### CBC, ADIF F, ANEU, APTT, PRO, BMP, GFR, PRALB, TRF ####[address] [address] Bili Total 0.5 0.2-1.2 mg/dL Normal 10-27-2018 [facility] ([place]) (47296) Comment: Performed By: #### CBC, ADIF F, ANEU, APTT, PRO, BMP, GFR, PRALB, TRF ####[address] [address] Creatinine mass conc 0.90 0.50-1.20 mg/dL Normal 8 [facility] ([place]) (0000 0) Comment: Performed By: #### CBC, ADIF F, ANEU, APTT, PRO, BMP, GFR, PRALB, TRF ####[place] [address] Globulin Calculated mass 3.1 1.5-3.8 G/dL Normal 10-27 [facility] conc (S) ([place]) (0000 0) Comment: Performed By: #### CBC, ADIF F, ANEU, APTT, PRO, BMP, GFR, PRALB, TRF ####[address] [address] Protein mass conc 5.4 6.0-8.5 G/dL Low 10-27-2018 [facility] ([place]) (84878) Comment: Performed By: #### CBC, ADIF F, ANEU, APTT, PRO, BMP, GFR, PRALB, TRF ####[address] [address] Urea nitrogen/Creatinine mass 25.6 10.0-22.0 ratio High 10-27-2018 [facility] ([place]) (22849) Comment: Performed By: #### CBC, ADIF F, ANEU, APTT, PRO, BMP, GFR, PRALB, TRF ####[address] [address] Albumin mass conc 2.3 3.2-4.8 G/dL Low 10-27-2018 [facility] ([place]) (16524) Comment: Performed By: #### CBC, ADIF F, ANEU, APTT, PRO, BMP, GFR, PRALB, TRF ####[place] [address] ALT enzyme act/vol 13 10-49 U/L Normal 10-27-2018 [facility] ([place]) (79963) Comment: Performed By: #### CBC, ADIF F, ANEU, APTT, PRO, BMP, GFR, PRALB, TRF ####[place] [address] AST enzyme act/vol 26 8-34 U/L Normal 10-27-2018 [facility] ([place]) (59229) Comment: Performed By: #### CBC, ADIF F, ANEU, APTT, PRO, BMP, GFR, PRALB, TRF ####[place] [address] Calcium mass conc 7.8 8.4-10.1 mg/dL Low 10-27-2018 [facility] ([place]) (68999) Comment: Performed By: #### CBC, ADIF F, ANEU, APTT, PRO, BMP, GFR, PRALB, TRF ####[place] [address] Chloride molar conc 103 98-110 mEq/L Normal 10-27-2018 [facility] ([place]) (85125) Comment: Performed By: #### CBC, ADIF F, ANEU, APTT, PRO, BMP, GFR, PRALB, TRF ####[address] [address] CO2 molar conc 29 22-32 mEq/L Normal 10-27-2018 [facility] ([place]) (17451) Comment: Performed By: #### CBC, ADIF F, ANEU, APTT, PRO, BMP, GFR, PRALB, TRF ####[place] [address] Electrolyte Balance 6.0 4.0-15.0 mEq/L Normal 10-27-2018 [facility] ([place]) (0000 0) Comment: Performed By: #### CBC, ADIF F, ANEU, APTT, PRO, BMP, GFR, PRALB, TRF ####[place] [address] Glucose mass conc 101 82-115 mg/dL Normal 10-27-2018 [facility] ([place]) (09681) Comment: Performed By: #### CBC, ADIF F, ANEU, APTT, PRO, BMP, GFR, PRALB, TRF ####[place] [address] Potassium molar conc 4.3 3.5-5.0 mEq/L Normal 8 [facility] ([place]) (0000 0) Comment: Performed By: #### CBC, ADIF F, ANEU, APTT, PRO, BMP, GFR, PRALB, TRF ####[place] [address] Sodium molar conc 138 136-145 mEq/L Normal 10-27-2018 [facility] ([place]) (72666) Comment: Performed By: #### CBC, ADIF F, ANEU, APTT, PRO, BMP, GFR, PRALB, TRF ####[place] [address] Urea nitrogen mass conc 23.0 8.0-22.0 mg/dL High 2017 [facility] ([place]) (0000 0) Comment: Performed By: #### CBC, ADIF F, ANEU, APTT, PRO, BMP, GFR, PRALB, TRF ####[address] [address] cbc on 2018-10-27 Erythrocyte distribution 15.6 11.5-15.5 % High 10-27 [facility] width Auto Ratio (RBC) ([place]) (07146) Comment: Performed By: #### CBC, ADIF F, ANEU, APTT, PRO, BMP, GFR, PRALB, TRF ####[place] [address] Hematocrit Auto Volume 28.7 34.0-46.0 % Low 018 [facility] Fraction (Bld) ([place]) (25652) Comment: Performed By: #### CBC, ADIF F, ANEU, APTT, PRO, BMP, GFR, PRALB, TRF ####[place] [address] Hemoglobin mass conc (Bld) 9.3 12.0-16.0 G/dL Low [facility] ([place]) (0000 0) Comment: Performed By: #### CBC, ADIF F, ANEU, APTT, PRO, BMP, GFR, PRALB, TRF ####[place] [address] MCH Auto Entitic mass 28.3 27.0-33.0 pg Normal 10-27-20 18 [facility] (RBC) ([place]) (0000 0) Comment: Performed By: #### CBC, ADIF F, ANEU, APTT, PRO, BMP, GFR, PRALB, TRF ####[place] [address] MCHC Auto mass conc 32.6 32.0-36.0 G/dL Normal 10-27-2018 [facility] (RBC) ([place]) (0000 0) Comment: Performed By: #### CBC, ADIF F, ANEU, APTT, PRO, BMP, GFR, PRALB, TRF ####[place] [address] MCV Auto Entitic volume 86.7 80.0-99.0 fL Normal 2017 [facility] (RBC) ([place]) (0000 0) Comment: Performed By: #### CBC, ADIF F, ANEU, APTT, PRO, BMP, GFR, PRALB, TRF ####[place] [address] Platelet mean volume Auto 8.5 6.6-10.5 fL Normal 10-13 [facility] Entitic volume (Bld) ([place]) (60008) Comment: Performed By: #### CBC, ADIF F, ANEU, APTT, PRO, BMP, GFR, PRALB, TRF ####[address] [address] Platelets Auto #/vol 186 150-450 10 3/mcL Normal 8 [facility]) (41300) Comment: Performed By: #### CBC, ADIF F, ANEU, APTT, PRO, BMP, GFR, PRALB, TRF ####[place] [address] RBC Auto #/vol (Bld) 3.30 4.10-5.30 10 6/mcL Low 8 [facility] ([place]) (0000 0) Comment: Performed By: #### CBC, ADIF F, ANEU, APTT, PRO, BMP, GFR, PRALB, TRF ####[place] [address] WBC Auto #/vol 10.60 4.50-10.80 10 3/mcL Normal 10-27-2018 [facility]) (84192) Comment: Performed By: #### CBC, ADIF F, ANEU, APTT, PRO, BMP, GFR, PRALB, TRF ####[place] [address] .neuabs on Neutrophil, Absolute 7.90 2.25-8.10 10 3/mcL Normal 8 [facility] ([place]) (02234) Comment: Performed By: #### CBC, ADIF F, ANEU, APTT, PRO, BMP, GFR, PRALB, TRF ####[address] [address] .gfr on 2018-10-27 GFR >60 Normal 8 [facility] ([place]) (59963) Comment: Result Comment: GFR Populati on mean [...] ANEU, APTT, PRO, BMP, GFR, PRALB, TRF ####[address] [address] GFR Non- >60 Normal 10-27 [facility] ([place]) (80977) Comment: Result Comment: GFR Populati on mean [...] ANEU, APTT, PRO, BMP, GFR, PRALB, TRF ####[address] [address] .auto diff on 10-27 Ammonia mass conc 0.60 0.09-1.40 10 3/mcL Normal 10-27-2018 A [facility] (P) [facility] ([place]) (39536) Comment: Performed By: #### CBC, ADIF F, ANEU, APTT, PRO, BMP, GFR, PRALB, TRF ####[place] [address] Basophils Auto #/vol 0.20 0.00-0.27 10 3/mcL Normal 8 [facility] (d) [facility] ([place]) (09141) Comment: Performed By: #### CBC, ADIF F, ANEU, APTT, PRO, BMP, GFR, PRALB, TRF ####[address] [address] Basophils/100 WBC Auto (d) 1.5 0.0-2.5 % Normal 1 12-28-2017 [facility]) (0000 0) Comment: Performed By: #### CBC, ADIF F, ANEU, APTT, PRO, BMP, GFR, PRALB, TRF ####[address] [address] Eosinophils Auto #/vol 0.30 0.00-0.65 10 3/mcL Normal [address] [place] [address]) (83163) Comment: Performed By: #### CBC, ADIF F, ANEU, APTT, PRO, BMP, GFR, PRALB, TRF ####[address] [address] Eosinophils/100 WBC Auto 2.4 0.0-6.0 % Normal 10-27 [facility]) (80027) Comment: Performed By: #### CBC, ADIF F, ANEU, APTT, PRO, BMP, GFR, PRALB, TRF ####[address] [address] Lymphocytes Auto #/vol 1.60 0.90-4.32 10 3/mcL Normal [address] [place] [address]) (92817) Comment: Performed By: #### CBC, ADIF F, ANEU, APTT, PRO, BMP, GFR, PRALB, TRF ####[address] [address] Lymphocytes/100 WBC Auto 14.9 20.0-40.0 % Low 10-27 [facility]) (20898) Comment: Performed By: #### CBC, ADIF F, ANEU, APTT, PRO, BMP, GFR, PRALB, TRF ####[address] [address] Monocytes/100 WBC Auto (Bld) 6.0 2.0-13.0 % Normal 1 12-28-2017 [facility] ([place]) (13196) Comment: Performed By: #### CBC, ADIF F, ANEU, APTT, PRO, BMP, GFR, PRALB, TRF ####[address] [address] Neutrophils/100 WBC Auto 75.2 50.0-75.0 % High 10-27 [facility] (Bld) [facility] ([place]) (59497) Comment: Performed By: #### CBC, ADIF F, ANEU, APTT, PRO, BMP, GFR, PRALB, TRF ####[address] [address] cbc on 2018-10-26 Erythrocyte distribution 15.8 11.5-15.5 % High 10-26 [facility] width Auto Ratio (RBC) ([place]) (14252) Comment: Performed By: #### CBC, ADIF F, ANEU, APTT, PRO, BMP, GFR, PRALB, TRF ####[address] [address] Hematocrit Auto Volume 26.4 34.0-46.0 % Low 018 [facility] Fraction (Bld) ([place]) (49653) Comment: Performed By: #### CBC, ADIF F, ANEU, APTT, PRO, BMP, GFR, PRALB, TRF ####[address] [address] Hemoglobin mass conc (Bld) 8.7 12.0-16.0 G/dL Low [facility] ([place]) (0000 0) Comment: Performed By: #### CBC, ADIF F, ANEU, APTT, PRO, BMP, GFR, PRALB, TRF ####[address] [address] MCH Auto Entitic mass 28.3 27.0-33.0 pg Normal 10-26-20 18 [facility] (RBC) ([place]) (0000 0) Comment: Performed By: #### CBC, ADIF F, ANEU, APTT, PRO, BMP, GFR, PRALB, TRF ####[place] [address] MCHC Auto mass conc 33.0 32.0-36.0 G/dL Normal 10-26-2018 [facility] (RBC) ([place]) (0000 0) Comment: Performed By: #### CBC, ADIF F, ANEU, APTT, PRO, BMP, GFR, PRALB, TRF ####[place] [address] MCV Auto Entitic volume 85.8 80.0-99.0 fL Normal 2017 [facility] ([facility]BC) ([place]) (0000 0) Comment: Performed By: #### CBC, ADIF F, ANEU, APTT, PRO, BMP, GFR, PRALB, TRF ####[place] [address] Platelet mean volume Auto 7.7 6.6-10.5 fL Normal 10-13 [facility] Entitic volume (Bld) ([place]) (98365) Comment: Performed By: #### CBC, ADIF F, ANEU, APTT, PRO, BMP, GFR, PRALB, TRF ####[place] [address] Platelets Auto #/vol 148 150-450 10 3/mcL Low 8 [facility] (Bld) ([place]) (0000 0) Comment: Performed By: #### CBC, ADIF F, ANEU, APTT, PRO, BMP, GFR, PRALB, TRF ####[place] [address] RBC Auto #/vol (Bld) 3.08 4.10-5.30 10 6/mcL Low 8 [facility] ([place]) (0000 0) Comment: Performed By: #### CBC, ADIF F, ANEU, APTT, PRO, BMP, GFR, PRALB, TRF ####[place] [address] WBC Auto #/vol 9.70 4.50-10.80 10 3/mcL Normal 10-26-2018 [facility] (d) [facility] ([place]) (50252) Comment: Performed By: #### CBC, ADIF F, ANEU, APTT, PRO, BMP, GFR, PRALB, TRF ####[address] [address] bmp on 2018-10-26 Creatinine mass conc 0.73 0.50-1.20 mg/dL Normal 8 [facility] ([place]) (0000 0) Comment: Performed By: #### CBC, ADIF F, ANEU, APTT, PRO, BMP, GFR, PRALB, TRF ####[place] [address] Urea nitrogen/Creatinine 19.2 10.0-22.0 ratio Normal 10-26 [facility] ([place]) (28187) Comment: Performed By: #### CBC, ADIF F, ANEU, APTT, PRO, BMP, GFR, PRALB, TRF ####[address] [address] Calcium mass conc 7.8 8.4-10.1 mg/dL Low 10-26-2018 [facility] [place]) (31290) Comment: Performed By: #### CBC, ADIF F, ANEU, APTT, PRO, BMP, GFR, PRALB, TRF ####[address] [address] Chloride molar conc 104 98-110 mEq/L Normal 10-26-2018 [facility] ([place]) (77973) Comment: Performed By: #### CBC, ADIF F, ANEU, APTT, PRO, BMP, GFR, PRALB, TRF ####[address] [address] CO2 molar conc 29 22-32 mEq/L Normal 10-26-2018 [facility] ([place]) (67413) Comment: Performed By: #### CBC, ADIF F, ANEU, APTT, PRO, BMP, GFR, PRALB, TRF ####[address] [address] Electrolyte Balance 6.0 4.0-15.0 mEq/L Normal 10-26-2018 [facility] ([place]) (0000 0) Comment: Performed By: #### CBC, ADIF F, ANEU, APTT, PRO, BMP, GFR, PRALB, TRF ####[place] [address] Glucose mass conc 97 82-115 mg/dL Normal 10-26-2018 [facility] ([place]) (70941) Comment: Performed By: #### CBC, ADIF F, ANEU, APTT, PRO, BMP, GFR, PRALB, TRF ####[place] [address] Potassium molar conc 3.7 3.5-5.0 mEq/L Normal 8 [facility] ([place]) (0000 0) Comment: Performed By: #### CBC, ADIF F, ANEU, APTT, PRO, BMP, GFR, PRALB, TRF ####[place] [address] Sodium molar conc 139 136-145 mEq/L Normal 10-26-2018 [facility] ([place]) (74403) Comment: Performed By: #### CBC, ADIF F, ANEU, APTT, PRO, BMP, GFR, PRALB, TRF ####[place] [address] Urea nitrogen mass conc 14.0 8.0-22.0 mg/dL Normal 2017 [facility] ([place]) (72392) Comment: Performed By: #### CBC, ADIF F, ANEU, APTT, PRO, BMP, GFR, PRALB, TRF ####[place] [address] .neuabs on Neutrophil, Absolute 7.60 2.25-8.10 10 3/mcL Normal 8 [facility] ([place]) (32636) Comment: Performed By: #### CBC, ADIF F, ANEU, APTT, PRO, BMP, GFR, PRALB, TRF ####[place] [address] [address] [place] [address] .gfr on 2018-10-26 GFR Non- >60 Normal 10-26 [facility] ([place]) (94483) Comment: Result Comment: GFR Populati on mean [...] ANEU, APTT, PRO, BMP, GFR, PRALB, TRF ####[place] [address]30 [address] [place] [address] GFR >60 Normal [facility] ([place]) (75509) Comment: Result Comment: GFR Populati on mean [...] ANEU, APTT, PRO, BMP, GFR, PRALB, TRF ####[place] [address]30 [address] [place] [address] .auto diff on 10-26 Ammonia mass conc 0.60 0.09-1.40 10 3/mcL Normal 10-26-2018 A [facility] ([facility] ([place]) (03867) Comment: Performed By: #### CBC, ADIF F, ANEU, APTT, PRO, BMP, GFR, PRALB, TRF ####[address] [address] Basophils Auto #/vol 0.00 0.00-0.27 10 3/mcL Normal 8 [facility]) ([id number]) Comment: Performed By: #### CBC, ADIF F, ANEU, APTT, PRO, BMP, GFR, PRALB, TRF ####[address] [address] Basophils/100 WBC Auto ([facility]) 0.2 0.0-2.5 % Normal 1 12-27-2017 [facility]) (0000 0) Comment: Performed By: #### CBC, ADIF F, ANEU, APTT, PRO, BMP, GFR, PRALB, TRF ####[address] [address] Eosinophils Auto #/vol 0.20 0.00-0.65 10 3/mcL Normal 018 [facility]) ([id number]) Comment: Performed By: #### CBC, ADIF F, ANEU, APTT, PRO, BMP, GFR, PRALB, TRF ####[address] [address] Eosinophils/100 WBC Auto 2.0 0.0-6.0 % Normal 10-26 [facility]) ([id number]) Comment: Performed By: #### CBC, ADIF F, ANEU, APTT, PRO, BMP, GFR, PRALB, TRF ####[address] [address] Lymphocytes Auto #/vol 1.30 0.90-4.32 10 3/mcL Normal 018 [facility]) ([id number]) Comment: Performed By: #### CBC, ADIF F, ANEU, APTT, PRO, BMP, GFR, PRALB, TRF ####[address] [address] Lymphocytes/100 WBC Auto 13.4 20.0-40.0 % Low 10-26 [facility] ([facility]) [facility] ([place]) ([id number]) Comment: Performed By: #### CBC, ADIF F, ANEU, APTT, PRO, BMP, GFR, PRALB, TRF ####[address] [address] Monocytes/100 WBC Auto (Bld) 6.4 2.0-13.0 % Normal 1 12-27-2017 [facility] ([place]) ([id number]) Comment: Performed By: #### CBC, ADIF F, ANEU, APTT, PRO, BMP, GFR, PRALB, TRF ####[address] [address] Neutrophils/100 WBC Auto 78.0 50.0-75.0 % High 10-26 [facility] ([facility]) [facility] ([place]) ([id number]) Comment: Performed By: #### CBC, ADIF F, ANEU, APTT, PRO, BMP, GFR, PRALB, TRF ####[address] [address] hh on 2018-10-25 Hematocrit Auto Volume 25.3 34.0-46.0 % Low 10-25- 018 [facility] (Bld) ([place]) ([id number]) Comment: Performed By: #### CBC, ADIF F, ANEU, APTT, PRO, BMP, GFR, PRALB, TRF ####[address] [address] Hemoglobin mass conc (Bld) 8.4 12.0-16.0 G/dL Low [facility] ([place]) (0000 0) Comment: Performed By: #### CBC, ADIF F, ANEU, APTT, PRO, BMP, GFR, PRALB, TRF ####[address] [address] bmp on 2018-10-25 Creatinine mass conc 0.66 0.50-1.20 mg/dL Normal 8 [facility] ([place]) (0000 0) Comment: Performed By: #### CBC, ADIF F, ANEU, APTT, PRO, BMP, GFR, PRALB, TRF ####[place] [address] Urea nitrogen/Creatinine 18.2 10.0-22.0 ratio Normal 10-25 [facility] ([place]) ([id number]) Comment: Performed By: #### CBC, ADIF F, ANEU, APTT, PRO, BMP, GFR, PRALB, TRF ####[place] [address] Calcium mass conc 7.6 8.4-10.1 mg/dL Low 10-25-2018 [facility] ([place]) ([id number]) Comment: Performed By: #### CBC, ADIF F, ANEU, APTT, PRO, BMP, GFR, PRALB, TRF ####[place] [address] Chloride molar conc 107 98-110 mEq/L Normal 10-25-2018 [facility] ([place]) ([id number]) Comment: Performed By: #### CBC, ADIF F, ANEU, APTT, PRO, BMP, GFR, PRALB, TRF ####[place] [address] CO2 molar conc 28 22-32 mEq/L Normal 10-25-2018 [facility] ([place]) ([id number]) Comment: Performed By: #### CBC, ADIF F, ANEU, APTT, PRO, BMP, GFR, PRALB, TRF ####[place] [address] Electrolyte Balance 5.0 4.0-15.0 mEq/L Normal 10-25-2018 [facility] ([place]) (0000 0) Comment: Performed By: #### CBC, ADIF F, ANEU, APTT, PRO, BMP, GFR, PRALB, TRF ####[place] [address] Glucose mass conc 118 82-115 mg/dL High 10-25-2018 [facility] ([place]) (63551) Comment: Performed By: #### CBC, ADIF F, ANEU, APTT, PRO, BMP, GFR, PRALB, TRF ####[place] [address] [place] [address] Potassium molar conc 4.0 3.5-5.0 mEq/L Normal 8 [facility] ([place]) (0000 0) Comment: Performed By: #### CBC, ADIF F, ANEU, APTT, PRO, BMP, GFR, PRALB, TRF ####[place] [address] [place] [address] Sodium molar conc 140 136-145 mEq/L Normal 10-25-2018 [facility] ([place]) (30137) Comment: Performed By: #### CBC, ADIF F, ANEU, APTT, PRO, BMP, GFR, PRALB, TRF ####[place] [address] [place] [address] Urea nitrogen mass conc 12.0 8.0-22.0 mg/dL Normal 2017 [facility] ([place]) (43399) Comment: Performed By: #### CBC, ADIF F, ANEU, APTT, PRO, BMP, GFR, PRALB, TRF ####[address] [address] .gfr on 2018-10-25 GFR >60 Normal 8 [facility] ([place]) (29857) Comment: Result Comment: GFR Populati on mean [...] ANEU, APTT, PRO, BMP, GFR, PRALB, TRF ####[place] [address] [place] [address] GFR Non- >60 Normal 10-25 [facility] ([place]) (85042) Comment: Result Comment: GFR Populati on mean [...] ANEU, APTT, PRO, BMP, GFR, PRALB, TRF ####[place] [address] [place] [address] xr fluoro 1-2 hrs tech time on 2018-10-24 XR FLUORO 1-2 ORIGINALTechnical Details: Normal 10-24-2018 [facility] TECH TIME Tech Time - 804am-705pm; [facility] ([place]) C-Arm # - 7; Total Dose - ([id number]) 180.10 mGy; Images - 13; Hydraulic Mechanic - Keny Miller; History - image [id number]; [...] VIEW ORIGINALXR CHEST 1 VIEW Normal 10-24-2018 [facility] CLINICAL STATEMENT: [place] hypoxia. COMPARISON: ([id number]) 10/23/2018 FINDINGS: Endotracheal tube terminates 4.4 cm [...] ABDOMEN AP ORIGINALXR ABDOMEN AP Normal 10-13 [facility] CLINICAL STATEMENT: [place]G [facility] [place] placement. COMPARISON: ([id number]) 10/23/2018 FINDINGS: The enteric tube terminates near [...] Erythrocyte distribution 15.7 11.5-15.5 % High 10-24 [facility] width Auto Ratio (RBC) ([place]) (48318) Comment: Performed By: #### CBC, ADIF F, ANEU, APTT, PRO, BMP, GFR, PRALB, TRF ####[place] [address] Hematocrit Auto Volume 30.1 34.0-46.0 % Low 018 [facility] Fraction (Bld) ([place]) (73832) Comment: Performed By: #### CBC, ADIF F, ANEU, APTT, PRO, BMP, GFR, PRALB, TRF ####[address] [address] Hemoglobin mass conc 10.1 12.0-16.0 G/dL Low 8 [facility] (Bld) ([place]) (0000 0) Comment: Performed By: #### CBC, ADIF F, ANEU, APTT, PRO, BMP, GFR, PRALB, TRF ####[address] [address] MCH Auto Entitic mass 28.4 27.0-33.0 pg Normal 10-24-20 18 [facility] (RBC) ([place]) (0000 0) Comment: Performed By: #### CBC, ADIF F, ANEU, APTT, PRO, BMP, GFR, PRALB, TRF ####[address] [address] MCHC Auto mass conc 33.4 32.0-36.0 G/dL Normal 10-24-2018 [facility] (RBC) ([place]) (0000 0) Comment: Performed By: #### CBC, ADIF F, ANEU, APTT, PRO, BMP, GFR, PRALB, TRF ####[address] [address] MCV Auto Entitic volume 84.8 80.0-99.0 fL Normal 2017 [facility] ([facility]) ([place]) (0000 0) Comment: Performed By: #### CBC, ADIF F, ANEU, APTT, PRO, BMP, GFR, PRALB, TRF ####[address] [address] Platelet mean volume Auto 8.0 6.6-10.5 fL Normal 10-13 [facility] Entitic volume (Bld) ([place]) (00720) Comment: Performed By: #### CBC, ADIF F, ANEU, APTT, PRO, BMP, GFR, PRALB, TRF ####[address] [address] Platelets Auto #/vol 180 150-450 10 3/mcL Normal 8 [facility]) (82033) Comment: Performed By: #### CBC, ADIF F, ANEU, APTT, PRO, BMP, GFR, PRALB, TRF ####[place] [address] RBC Auto #/vol ([facility]) 3.55 4.10-5.30 10 6/mcL Low 8 [facility] ([place]) (0000 0) Comment: Performed By: #### CBC, ADIF F, ANEU, APTT, PRO, BMP, GFR, PRALB, TRF ####[place] [address] WBC Auto #/vol 9.70 4.50-10.80 10 3/mcL Normal 10-24-2018 [facility] ([place]) (21149) Comment: Performed By: #### CBC, ADIF F, ANEU, APTT, PRO, BMP, GFR, PRALB, TRF ####[place] [address] bmp on 2018-10-24 Creatinine mass conc 0.67 0.50-1.20 mg/dL Normal 8 [facility] ([place]) (0000 0) Comment: Performed By: #### CBC, ADIF F, ANEU, APTT, PRO, BMP, GFR, PRALB, TRF ####[place] [address] Urea nitrogen/Creatinine mass 26.9 10.0-22.0 ratio High 10-24-2018 [facility] ([place]) (14325) Comment: Performed By: #### CBC, ADIF F, ANEU, APTT, PRO, BMP, GFR, PRALB, TRF ####[place] [address] Calcium mass conc 7.3 8.4-10.1 mg/dL Low 10-24-2018 [facility] ([place]) (38380) Comment: Performed By: #### CBC, ADIF F, ANEU, APTT, PRO, BMP, GFR, PRALB, TRF ####[place] [address] Chloride molar conc 112 98-110 mEq/L High 10-24-2018 [facility] ([place]) (86760) Comment: Performed By: #### CBC, ADIF F, ANEU, APTT, PRO, BMP, GFR, PRALB, TRF ####[place] [address] CO2 molar conc 24 22-32 mEq/L Normal 10-24-2018 [facility] ([place]) ([id number]) Comment: Performed By: #### CBC, ADIF F, ANEU, APTT, PRO, BMP, GFR, PRALB, TRF ####[place] [address] Electrolyte Balance 3.0 4.0-15.0 mEq/L Low 10-24-2018 [facility] ([place]) (53093) Comment: Performed By: #### CBC, ADIF F, ANEU, APTT, PRO, BMP, GFR, PRALB, TRF ####[place] [address] Glucose mass conc 133 82-115 mg/dL High 10-24-2018 [facility] ([place]) (78569) Comment: Performed By: #### CBC, ADIF F, ANEU, APTT, PRO, BMP, GFR, PRALB, TRF ####[place] [address] Potassium molar conc 4.3 3.5-5.0 mEq/L Normal 8 [facility] ([place]) (0000 0) Comment: Performed By: #### CBC, ADIF F, ANEU, APTT, PRO, BMP, GFR, PRALB, TRF ####[place] [address] Sodium molar conc 139 136-145 mEq/L Normal 10-24-2018 [facility] ([place]) (67713) Comment: Performed By: #### CBC, ADIF F, ANEU, APTT, PRO, BMP, GFR, PRALB, TRF ####[place] [address] [place] [address] Urea nitrogen mass conc 18.0 8.0-22.0 mg/dL Normal 2017 [facility] ([place]) (81584) Comment: Performed By: #### CBC, ADIF F, ANEU, APTT, PRO, BMP, GFR, PRALB, TRF ####[address] [address] .neuabs on Neutrophil, Absolute 8.10 2.25-8.10 10 3/mcL Normal 8 [facility] ([place]) (14805) Comment: Performed By: #### CBC, ADIF F, ANEU, APTT, PRO, BMP, GFR, PRALB, TRF ####[address] [address] .gfr on 2018-10-24 GFR Non- >60 Normal 10-24 [facility] ([place]) (93404) Comment: Result Comment: GFR Populati on mean [...] ANEU, APTT, PRO, BMP, GFR, PRALB, TRF ####[address] [address] GFR >60 Normal 8 [facility] ([place]) (82229) Comment: Result Comment: GFR Populati on mean [...] ANEU, APTT, PRO, BMP, GFR, PRALB, TRF ####[address] [address] .auto diff on 10-24 Ammonia mass conc 0.70 0.09-1.40 10 3/mcL Normal 10-24-2018 A [facility] () [facility] ([place]) (74363) Comment: Performed By: #### CBC, ADIF F, ANEU, APTT, PRO, BMP, GFR, PRALB, TRF ####[address] [address] Basophils Auto #/vol 0.00 0.00-0.27 10 3/mcL Normal 8 [facility] ([facility]) [facility] ([place]) (54025) Comment: Performed By: #### CBC, ADIF F, ANEU, APTT, PRO, BMP, GFR, PRALB, TRF ####[address] [address] Basophils/100 WBC Auto (d) 0.3 0.0-2.5 % Normal 1 12-25-2017 [facility] ([place]) (0000 0) Comment: Performed By: #### CBC, ADIF F, ANEU, APTT, PRO, BMP, GFR, PRALB, TRF ####[address] [address] Eosinophils Auto #/vol 0.00 0.00-0.65 10 3/mcL Normal [address] [place] [address]) (89195) Comment: Performed By: #### CBC, ADIF F, ANEU, APTT, PRO, BMP, GFR, PRALB, TRF ####[address] [address] Eosinophils/100 WBC Auto 0.0 0.0-6.0 % Normal 10-24 [facility]) (75920) Comment: Performed By: #### CBC, ADIF F, ANEU, APTT, PRO, BMP, GFR, PRALB, TRF ####[address] [address] Lymphocytes Auto #/vol 0.80 0.90-4.32 10 3/mcL Low [address] [place] [address]) (43865) Comment: Performed By: #### CBC, ADIF F, ANEU, APTT, PRO, BMP, GFR, PRALB, TRF ####[address] [address] Lymphocytes/100 WBC Auto (Bld) 8.2 20.0-40.0 % Low 10-24-2018 [facility]) (75357) Comment: Performed By: #### CBC, ADIF F, ANEU, APTT, PRO, BMP, GFR, PRALB, TRF ####[address] [address] Monocytes/100 WBC Auto (Bld) 7.5 2.0-13.0 % Normal 1 12-25-2017 [facility] ([place]) (31541) Comment: Performed By: #### CBC, ADIF F, ANEU, APTT, PRO, BMP, GFR, PRALB, TRF ####[address] [address] Neutrophils/100 WBC Auto 84.0 50.0-75.0 % High 10-24 [facility]) (92701) Comment: Performed By: #### CBC, ADIF F, ANEU, APTT, PRO, BMP, GFR, PRALB, TRF ####[facility] [place] [address] xr chest 1 view on 2018-10-23 XR CHEST 1 VIEW ORIGINALXR CHEST 1 VIEW Normal 10-23-2018 [facility] PORTABLE AP UPRIGHT DATE [facility] ([place]) AND TIME: 10/23/2018 8:58 ([id number]) PM CLINICAL STATEMENT: ETT placement COMPARISON: None [...] 30-10-11 XR ABDOMEN AP ORIGINALPortable supine Normal [facility] abdomen 10/23/2018 2058 [facility] ([place]) hours CLINICAL STATEMENT: ([id number]) Tube placement Enteric tube is seen within [...] Antibody Screen Tango Negative ABSC Normal 10-13 [facility] ([place]) (0000 0) Comment: Performed By: #### CBC, ADIF F, ANEU, APTT, PRO, BMP, GFR, PRALB, TRF ####[address] [address] tabo on 2018-10-23 ABO/Rh Interp AB POS Invalid Interpretation Cod e 10-23-2018 [facility] ([place]) ([id number]) Comment: Performed By: #### ABORH, AN TIS ####[place] [address] rbc (product) on 30-10-11 RBC Auto #/vol RBC Ready for Pickup Normal 10-13 [facility] ([facility]) [facility] ([place]) (49843) Comment: Performed By: #### CBC, ADIF F, ANEU, APTT, PRO, BMP, GFR, PRALB, TRF ####[place] [address] naor on 2018-10-23 Sodium molar conc 137 136-145 mEq/L Normal 10-23-2018 [facility] [place]) (21536) Comment: Performed By: #### CBC, ADIF F, ANEU, APTT, PRO, BMP, GFR, PRALB, TRF ####[place] [address] Sodium molar conc 138 136-145 mEq/L Normal 10-23-2018 [facility] [place]) (93003) Comment: Performed By: #### CBC, ADIF F, ANEU, APTT, PRO, BMP, GFR, PRALB, TRF ####[place] [address] Sodium molar conc 136 136-145 mEq/L Normal 10-23-2018 [facility] [place]) (46919) Comment: Performed By: #### CBC, ADIF F, ANEU, APTT, PRO, BMP, GFR, PRALB, TRF ####[place] [address] Sodium molar conc 138 136-145 mEq/L Normal 10-23-2018 [facility] [place]) (18762) Comment: Performed By: #### CBC, ADIF F, ANEU, APTT, PRO, BMP, GFR, PRALB, TRF ####[address] [address] mgor on 2018-10-23 Magnesium mass conc 2.1 1.6-2.4 mg/dL Normal 10-23-2018 [facility] ([place]) (0000 0) Comment: Performed By: #### CBC, ADIF F, ANEU, APTT, PRO, BMP, GFR, PRALB, TRF ####[place] [address] Magnesium mass conc 2.2 1.6-2.4 mg/dL Normal 10-23-2018 [facility] ([place]) (0000 0) Comment: Performed By: #### CBC, ADIF F, ANEU, APTT, PRO, BMP, GFR, PRALB, TRF ####[address] [address] Magnesium mass conc 1.8 1.6-2.4 mg/dL Normal 10-23-2018 [facility] ([place]) (0000 0) Comment: Performed By: #### CBC, ADIF F, ANEU, APTT, PRO, BMP, GFR, PRALB, TRF ####[address] [address] kor on 2018-10-23 Potassium molar conc 4.3 3.5-5.0 mEq/L Normal 8 [facility] ([place]) (0000 0) Comment: Performed By: #### CBC, ADIF F, ANEU, APTT, PRO, BMP, GFR, PRALB, TRF ####[place] [address] Potassium molar conc 3.4 3.5-5.0 mEq/L Low 8 [facility] ([place]) (78085) Comment: Performed By: #### CBC, ADIF F, ANEU, APTT, PRO, BMP, GFR, PRALB, TRF ####[place] [address] Potassium molar conc 3.6 3.5-5.0 mEq/L Normal 8 [facility] ([place]) (0000 0) Comment: Performed By: #### CBC, ADIF F, ANEU, APTT, PRO, BMP, GFR, PRALB, TRF ####[place] [address] Potassium molar conc 3.3 3.5-5.0 mEq/L Low 8 [facility] ([place]) (41944) Comment: Performed By: #### CBC, ADIF F, ANEU, APTT, PRO, BMP, GFR, PRALB, TRF ####[address] [address] hgbor on 2018-10-23 Hemoglobin mass conc 10.7 12.0-16.0 G/dL Low 8 [facility] ([facility] ([place]) (0000 0) Comment: Performed By: #### CBC, ADIF F, ANEU, APTT, PRO, BMP, GFR, PRALB, TRF ####[place] [address] Hemoglobin mass conc (Bld) 9.4 12.0-16.0 G/dL Low [facility] ([place]) (0000 0) Comment: Performed By: #### CBC, ADIF F, ANEU, APTT, PRO, BMP, GFR, PRALB, TRF ####[place] [address] Hemoglobin mass conc 11.5 12.0-16.0 G/dL Low 8 [facility] ([facility]) ([place]) (0000 0) Comment: Performed By: #### CBC, ADIF F, ANEU, APTT, PRO, BMP, GFR, PRALB, TRF ####[place] [address] Hemoglobin mass conc 11.7 12.0-16.0 G/dL Low 8 [facility] ([facility] ([place]) (0000 0) Comment: Performed By: #### CBC, ADIF F, ANEU, APTT, PRO, BMP, GFR, PRALB, TRF ####[address] [address] hctor on 2018-10-23 Hematocrit Auto Volume 31.0 37.0-47.0 % Low 018 [facility] Fraction (Bld) ([place]) (91207) Comment: Performed By: #### CBC, ADIF F, ANEU, APTT, PRO, BMP, GFR, PRALB, TRF ####[place] [address] Hematocrit Auto Volume 28.0 37.0-47.0 % Low 018 [facility] Fraction (Bld) ([place]) (87270) Comment: Performed By: #### CBC, ADIF F, ANEU, APTT, PRO, BMP, GFR, PRALB, TRF ####[place] [address] Hematocrit Auto Volume 34.0 37.0-47.0 % Low 018 [facility] Fraction (Bld) ([place]) (74005) Comment: Performed By: #### CBC, ADIF F, ANEU, APTT, PRO, BMP, GFR, PRALB, TRF ####[place] [address] Hematocrit Auto Volume 34.0 37.0-47.0 % Low 018 [facility] Fraction (Bld) ([place]) (45912) Comment: Performed By: #### CBC, ADIF F, ANEU, APTT, PRO, BMP, GFR, PRALB, TRF ####[place] [address] gluor on 2018-10-23 Glucose mass conc 170 82-115 mg/dL High 10-23-2018 [facility] [place]) (02272) Comment: Performed By: #### CBC, ADIF F, ANEU, APTT, PRO, BMP, GFR, PRALB, TRF ####[place] [address] Glucose mass conc 150 82-115 mg/dL High 10-23-2018 [facility] [place]) (18681) Comment: Performed By: #### CBC, ADIF F, ANEU, APTT, PRO, BMP, GFR, PRALB, TRF ####[place] [address] Glucose mass conc 142 82-115 mg/dL High 10-23-2018 [facility] [place]) (57945) Comment: Performed By: #### CBC, ADIF F, ANEU, APTT, PRO, BMP, GFR, PRALB, TRF ####[place] [address] Glucose mass conc 105 82-115 mg/dL Normal 10-23-2018 [facility] [place]) (01325) Comment: Performed By: #### CBC, ADIF F, ANEU, APTT, PRO, BMP, GFR, PRALB, TRF ####[place] [address] cbc on 2018-10-23 Erythrocyte distribution 15.6 11.5-15.5 % High 10-23 [facility] width Auto Ratio (RBC) ([place]) (10747) Comment: Performed By: #### CBC, ADIF F, ANEU, APTT, PRO, BMP, GFR, PRALB, TRF ####[place] [address] Hematocrit Auto Volume 32.6 34.0-46.0 % Low 018 [facility] Fraction (Bld) ([place]) (97419) Comment: Performed By: #### CBC, ADIF F, ANEU, APTT, PRO, BMP, GFR, PRALB, TRF ####[place] [address] Hemoglobin mass conc 10.6 12.0-16.0 G/dL Low 8 [facility] (Bld) ([place]) (0000 0) Comment: Performed By: #### CBC, ADIF F, ANEU, APTT, PRO, BMP, GFR, PRALB, TRF ####[place] [address] MCH Auto Entitic mass 27.7 27.0-33.0 pg Normal 10-23-20 18 [facility] (RBC) ([place]) (0000 0) Comment: Performed By: #### CBC, ADIF F, ANEU, APTT, PRO, BMP, GFR, PRALB, TRF ####[address] [address] mass conc 32.6 32.0-36.0 G/dL Normal 10-23-2018 [facility] (RBC) ([place]) (0000 0) Comment: Performed By: #### CBC, ADIF F, ANEU, APTT, PRO, BMP, GFR, PRALB, TRF ####[address] [address] MCV Auto Entitic volume 85.1 80.0-99.0 fL Normal 2017 [facility] (RBC) ([place]) (0000 0) Comment: Performed By: #### CBC, ADIF F, ANEU, APTT, PRO, BMP, GFR, PRALB, TRF ####[place] [address] Platelet mean volume Auto 7.8 6.6-10.5 fL Normal 10-13 [facility] Entitic volume (Bld) ([place]) (37001) Comment: Performed By: #### CBC, ADIF F, ANEU, APTT, PRO, BMP, GFR, PRALB, TRF ####[address] [address] Platelets Auto #/vol 174 150-450 10 3/mcL Normal 8 [facility] (Bld) [facility] ([place]) (39965) Comment: Performed By: #### CBC, ADIF F, ANEU, APTT, PRO, BMP, GFR, PRALB, TRF ####[address] [address] RBC Auto #/vol (Bld) 3.83 4.10-5.30 10 6/mcL Low 8 [facility] ([place]) (0000 0) Comment: Performed By: #### CBC, ADIF F, ANEU, APTT, PRO, BMP, GFR, PRALB, TRF ####[address] [address] WBC Auto #/vol 13.10 4.50-10.80 10 3/mcL High 10-23-2018 [facility] ([facility]) (68914) Comment: Performed By: #### CBC, ADIF F, ANEU, APTT, PRO, BMP, GFR, PRALB, TRF ####[place] [address] caor on 2018-10-23 Calcium Ionized OR 1.05 1.12-1.32 mmol/L Low 10-23-2018 [facility] ([place]) (0000 0) Comment: Performed By: #### CBC, ADIF F, ANEU, APTT, PRO, BMP, GFR, PRALB, TRF ####[place] [address] Calcium Ionized OR 0.97 1.12-1.32 mmol/L Low 10-23-2018 [facility]) (0000 0) Comment: Performed By: #### CBC, ADIF F, ANEU, APTT, PRO, BMP, GFR, PRALB, TRF ####[place] [address] Calcium Ionized OR 1.04 1.12-1.32 mmol/L Low 10-23-2018 [facility]) (0000 0) Comment: Performed By: #### CBC, ADIF F, ANEU, APTT, PRO, BMP, GFR, PRALB, TRF ####[place] [address] Calcium Ionized OR 1.01 1.12-1.32 mmol/L Low 10-23-2018 [facility] ([place]) (0000 0) Comment: Performed By: #### CBC, ADIF F, ANEU, APTT, PRO, BMP, GFR, PRALB, TRF ####[place] [address] bmp on 2018-10-23 Creatinine mass conc 0.61 0.50-1.20 mg/dL Normal 8 [facility] ([place]) (0000 0) Comment: Performed By: #### CBC, ADIF F, ANEU, APTT, PRO, BMP, GFR, PRALB, TRF ####[place] [address] Urea nitrogen/Creatinine mass 26.2 10.0-22.0 ratio High 10-23-2018 [facility] ([place]) (76194) Comment: Performed By: #### CBC, ADIF F, ANEU, APTT, PRO, BMP, GFR, PRALB, TRF ####[place] [address] Calcium mass conc 7.1 8.4-10.1 mg/dL Low 10-23-2018 [facility] ([place]) (26103) Comment: Performed By: #### CBC, ADIF F, ANEU, APTT, PRO, BMP, GFR, PRALB, TRF ####[place] [address] Chloride molar conc 111 98-110 mEq/L High 10-23-2018 [facility] ([place]) (26450) Comment: Performed By: #### CBC, ADIF F, ANEU, APTT, PRO, BMP, GFR, PRALB, TRF ####[place] [address] CO2 molar conc 24 22-32 mEq/L Normal 10-23-2018 [facility] ([place]) (10475) Comment: Performed By: #### CBC, ADIF F, ANEU, APTT, PRO, BMP, GFR, PRALB, TRF ####[place] [address] Electrolyte Balance 6.0 4.0-15.0 mEq/L Normal 10-23-2018 [facility] ([place]) (0000 0) Comment: Performed By: #### CBC, ADIF F, ANEU, APTT, PRO, BMP, GFR, PRALB, TRF ####[place] [address] Glucose mass conc 173 82-115 mg/dL High 10-23-2018 [facility] ([place]) (88963) Comment: Performed By: #### CBC, ADIF F, ANEU, APTT, PRO, BMP, GFR, PRALB, TRF ####[place] [address] Potassium molar conc 4.3 3.5-5.0 mEq/L Normal 8 [facility] ([place]) (0000 0) Comment: Performed By: #### CBC, ADIF F, ANEU, APTT, PRO, BMP, GFR, PRALB, TRF ####[place] [address] Sodium molar conc 141 136-145 mEq/L Normal 10-23-2018 [facility] ([place]) (33144) Comment: Performed By: #### CBC, ADIF F, ANEU, APTT, PRO, BMP, GFR, PRALB, TRF ####[place] [address] Urea nitrogen mass conc 16.0 8.0-22.0 mg/dL Normal 2017 [facility] ([place]) ([id number]) Comment: Performed By: #### CBC, ADIF F, ANEU, APTT, PRO, BMP, GFR, PRALB, TRF ####[place] [address] bgoh on 2018-10-23 Patient Location OPEN HEART Normal 10-23-2018 [facility] ([place]) (13696) Comment: Performed By: #### CBC, ADIF F, ANEU, APTT, PRO, BMP, GFR, PRALB, TRF ####[place] [address] Patient Location OPEN HEART Normal 10-23-2018 [facility] ([place]) (72186) Comment: Performed By: #### CBC, ADIF F, ANEU, APTT, PRO, BMP, GFR, PRALB, TRF ####[place] [address] Patient Location OPEN HEART Normal 10-23-2018 [facility] ([place]) (13760) Comment: Performed By: #### CBC, ADIF F, ANEU, APTT, PRO, BMP, GFR, PRALB, TRF ####[place] [address] Patient Location OPEN HEART Normal 10-23-2018 [facility] ([place]) (61562) Comment: Performed By: #### CBC, ADIF F, ANEU, APTT, PRO, BMP, GFR, PRALB, TRF ####[place] [address] bg on 2018-10-23 Barometric Pressure 735 mmHg Normal 10-23-2018 [facility] ([place]) (27581) Comment: Performed By: #### CBC, ADIF F, ANEU, APTT, PRO, BMP, GFR, PRALB, TRF ####[place] [address] Base excess Calculated -2.5 mmol/L Normal 018 [facility] molar conc (Bld) ([place] ) ([id number]) Comment: Performed By: #### CBC, ADIF F, ANEU, APTT, PRO, BMP, GFR, PRALB, TRF ####[place] [address] CO2 molar conc 24.1 22.0-30.0 mmol/L Normal 10-23-2018 [facility] ([place]) ([id number]) Comment: Performed By: #### CBC, ADIF F, ANEU, APTT, PRO, BMP, GFR, PRALB, TRF ####[place] [address] HCO3 molar conc 22.9 21.0-29.0 mmol/L Normal 10-23-2018 Count includes the [facility] (Bld) ([place]) (0000 0) Comment: Performed By: #### CBC, ADIF F, ANEU, APTT, PRO, BMP, GFR, PRALB, TRF ####[place] [address] Oxygen ppres (BldA) 209.8 74.0-108.0 mmHg High 8 [facility] ([place]) (0000 0) Comment: Performed By: #### CBC, ADIF F, ANEU, APTT, PRO, BMP, GFR, PRALB, TRF ####[address] [address] Oxygen saturation in Blood 99.2 92.0-96.0 % High [facility] ([place]) (0000 0) Comment: Performed By: #### CBC, ADIF F, ANEU, APTT, PRO, BMP, GFR, PRALB, TRF ####[address] [address] pCO2 41.6 32.0-46.0 mmHg Normal 10-23-2018 [facility] ([place]) ([id number]) Comment: Performed By: #### CBC, ADIF F, ANEU, APTT, PRO, BMP, GFR, PRALB, TRF ####[place] [address] pH (Bld) 7.358 7.380-7.460 [pH] Low 10-23-2018 [facility] ([place]) ([id number]) Comment: Performed By: #### CBC, ADIF F, ANEU, APTT, PRO, BMP, GFR, PRALB, TRF ####[place] [address] Barometric Pressure 732 mmHg Normal 10-23-2018 [facility] ([place]) ([id number]) Comment: Performed By: #### CBC, ADIF F, ANEU, APTT, PRO, BMP, GFR, PRALB, TRF ####[place] [address] Base excess Calculated -2.4 mmol/L Normal 018 [facility] molar conc (Bld) ([place] ) (58728) Comment: Performed By: #### CBC, ADIF F, ANEU, APTT, PRO, BMP, GFR, PRALB, TRF ####[address] [address] CO2 molar conc 23.6 22.0-30.0 mmol/L Normal 10-23-2018 [facility] ([place]) (69853) Comment: Performed By: #### CBC, ADIF F, ANEU, APTT, PRO, BMP, GFR, PRALB, TRF ####[address] [address] HCO3 molar conc 22.4 21.0-29.0 mmol/L Normal 10-23-2018 Count includes the [facility] ([facility]) ([place]) (0000 0) Comment: Performed By: #### CBC, ADIF F, ANEU, APTT, PRO, BMP, GFR, PRALB, TRF ####[address] [address] Oxygen ppres (BldA) 163.3 74.0-108.0 mmHg High 8 [facility] ([place]) (0000 0) Comment: Performed By: #### CBC, ADIF F, ANEU, APTT, PRO, BMP, GFR, PRALB, TRF ####[address] [address] Oxygen saturation in Blood 98.9 92.0-96.0 % High [facility] ([place]) (0000 0) Comment: Performed By: #### CBC, ADIF F, ANEU, APTT, PRO, BMP, GFR, PRALB, TRF ####[address] [address] pCO2 38.5 32.0-46.0 mmHg Normal 10-23-2018 [facility] ([place]) (56679) Comment: Performed By: #### CBC, ADIF F, ANEU, APTT, PRO, BMP, GFR, PRALB, TRF ####[address] [address] pH (Bld) 7.383 7.380-7.460 [pH] Normal 10-23-2018 [facility] ([place]) (19642) Comment: Performed By: #### CBC, ADIF F, ANEU, APTT, PRO, BMP, GFR, PRALB, TRF ####[address] [address] Barometric Pressure 733 mmHg Normal 10-23-2018 [facility] ([place]) (25179) Comment: Performed By: #### CBC, ADIF F, ANEU, APTT, PRO, BMP, GFR, PRALB, TRF ####[address] [address] Base excess Calculated -0.3 mmol/L Normal 018 [facility] molar conc (d) ([place] ) (63276) Comment: Performed By: #### CBC, ADIF F, ANEU, APTT, PRO, BMP, GFR, PRALB, TRF ####[address] [address] CO2 molar conc 25.4 22.0-30.0 mmol/L Normal 10-23-2018 [facility] ([place]) (17972) Comment: Performed By: #### CBC, ADIF F, ANEU, APTT, PRO, BMP, GFR, PRALB, TRF ####[address] [address] HCO3 molar conc 24.2 21.0-29.0 mmol/L Normal 10-23-2018 Count includes the [facility] (d) ([place]) (0000 0) Comment: Performed By: #### CBC, ADIF F, ANEU, APTT, PRO, BMP, GFR, PRALB, TRF ####[address] [address] Oxygen ppres (BldA) 179.4 74.0-108.0 mmHg High 8 [facility] ([place]) (0000 0) Comment: Performed By: #### CBC, ADIF F, ANEU, APTT, PRO, BMP, GFR, PRALB, TRF ####[address] [address] Oxygen saturation in Blood 99.2 92.0-96.0 % High [facility] ([place]) (0000 0) Comment: Performed By: #### CBC, ADIF F, ANEU, APTT, PRO, BMP, GFR, PRALB, TRF ####[address] [address] pCO2 39.0 32.0-46.0 mmHg Normal 10-23-2018 [facility] ([place]) (97396) Comment: Performed By: #### CBC, ADIF F, ANEU, APTT, PRO, BMP, GFR, PRALB, TRF ####[address] [address] pH (Bld) 7.411 7.380-7.460 [pH] Normal 10-23-2018 [facility] ([place]) (35041) Comment: Performed By: #### CBC, ADIF F, ANEU, APTT, PRO, BMP, GFR, PRALB, TRF ####[address] [address] Barometric Pressure 734 mmHg Normal 10-23-2018 [facility] ([place]) (39766) Comment: Performed By: #### CBC, ADIF F, ANEU, APTT, PRO, BMP, GFR, PRALB, TRF ####[place] [address] Base excess Calculated 2.2 mmol/L Normal 018 [facility] molar conc (Bld) ([place] ) (39503) Comment: Performed By: #### CBC, ADIF F, ANEU, APTT, PRO, BMP, GFR, PRALB, TRF ####[address] [address] CO2 molar conc 27.2 22.0-30.0 mmol/L Normal 10-23-2018 [facility] ([place]) (91096) Comment: Performed By: #### CBC, ADIF F, ANEU, APTT, PRO, BMP, GFR, PRALB, TRF ####[address] [address] HCO3 molar conc 26.0 21.0-29.0 mmol/L Normal 10-23-2018 Count includes the [facility] (d) ([place]) (0000 0) Comment: Performed By: #### CBC, ADIF F, ANEU, APTT, PRO, BMP, GFR, PRALB, TRF ####[address] [address] Oxygen ppres (BldA) 161.9 74.0-108.0 mmHg High 8 [facility] ([place]) (0000 0) Comment: Performed By: #### CBC, ADIF F, ANEU, APTT, PRO, BMP, GFR, PRALB, TRF ####[address] [address] Oxygen saturation in Blood 99.1 92.0-96.0 % High [facility] ([place]) (0000 0) Comment: Performed By: #### CBC, ADIF F, ANEU, APTT, PRO, BMP, GFR, PRALB, TRF ####[address] [address] pCO2 37.5 32.0-46.0 mmHg Normal 10-23-2018 [facility] ([place]) (82797) Comment: Performed By: #### CBC, ADIF F, ANEU, APTT, PRO, BMP, GFR, PRALB, TRF ####[address] [address] pH (Bld) 7.459 7.380-7.460 [pH] Normal 10-23-2018 [facility] ([place]) (10567) Comment: Performed By: #### CBC, ADIF F, ANEU, APTT, PRO, BMP, GFR, PRALB, TRF ####[address] [address] Barometric Pressure 736 mmHg Normal 10-23-2018 [facility] ([place]) (35294) Comment: Performed By: #### CBC, ADIF F, ANEU, APTT, PRO, BMP, GFR, PRALB, TRF ####[address] [address] Base excess Calculated 3.9 mmol/L Normal 018 [facility] molar conc (Bld) ([place] ) (53422) Comment: Performed By: #### CBC, ADIF F, ANEU, APTT, PRO, BMP, GFR, PRALB, TRF ####[address] [address] CO2 molar conc 27.6 22.0-30.0 mmol/L Normal 10-23-2018 [facility] ([place]) (25816) Comment: Performed By: #### CBC, ADIF F, ANEU, APTT, PRO, BMP, GFR, PRALB, TRF ####[address] [address] HCO3 molar conc 26.6 21.0-29.0 mmol/L Normal 10-23-2018 Count includes the [facility] ([facility] ([place]) (0000 0) Comment: Performed By: #### CBC, ADIF F, ANEU, APTT, PRO, BMP, GFR, PRALB, TRF ####[place] [address] Oxygen ppres (BldA) 228.4 74.0-108.0 mmHg High 8 [facility] ([place]) (0000 0) Comment: Performed By: #### CBC, ADIF F, ANEU, APTT, PRO, BMP, GFR, PRALB, TRF ####[place] [address] Oxygen saturation in Blood 99.5 92.0-96.0 % High [facility] ([place]) (0000 0) Comment: Performed By: #### CBC, ADIF F, ANEU, APTT, PRO, BMP, GFR, PRALB, TRF ####[place] [address] pCO2 33.4 32.0-46.0 mmHg Normal 10-23-2018 [facility] ([place]) (83632) Comment: Performed By: #### CBC, ADIF F, ANEU, APTT, PRO, BMP, GFR, PRALB, TRF ####[address] [address] pH (Bld) 7.519 7.380-7.460 [pH] High 10-23-2018 [facility] ([place]) (98338) Comment: Performed By: #### CBC, ADIF F, ANEU, APTT, PRO, BMP, GFR, PRALB, TRF ####[address] [address] .neuabs on Neutrophil, Absolute 12.10 2.25-8.10 10 3/mcL High 8 [facility] ([place]) (04826) Comment: Performed By: #### CBC, ADIF F, ANEU, APTT, PRO, BMP, GFR, PRALB, TRF ####[address] [address] .gfr on 2018-10-23 GFR Non- >60 Normal 10-23 [facility] ([place]) (86003) Comment: Result Comment: GFR Populati on mean [...] ANEU, APTT, PRO, BMP, GFR, PRALB, TRF ####[address] [address] GFR >60 Normal 8 [facility] ([place]) (46946) Comment: Result Comment: GFR Populati on mean [...] ANEU, APTT, PRO, BMP, GFR, PRALB, TRF ####[address] [address] .auto diff on 10-23 Ammonia mass conc 0.40 0.09-1.40 10 3/mcL Normal 10-23-2018 [facility]) (03974) Comment: Performed By: #### CBC, ADIF F, ANEU, APTT, PRO, BMP, GFR, PRALB, TRF ####[address] [address] Basophils Auto #/vol 0.00 0.00-0.27 10 3/mcL Normal 8 [facility]) (42226) Comment: Performed By: #### CBC, ADIF F, ANEU, APTT, PRO, BMP, GFR, PRALB, TRF ####[address] [address] Basophils/100 WBC Auto ([facility]) 0.1 0.0-2.5 % Normal 1 12-24-2017 [facility]) (0000 0) Comment: Performed By: #### CBC, ADIF F, ANEU, APTT, PRO, BMP, GFR, PRALB, TRF ####[address] [address] Eosinophils Auto #/vol 0.00 0.00-0.65 10 3/mcL Normal 018 [facility]) (77790) Comment: Performed By: #### CBC, ADIF F, ANEU, APTT, PRO, BMP, GFR, PRALB, TRF ####[address] [address] Eosinophils/100 WBC Auto 0.0 0.0-6.0 % Normal 10-23 [facility] ([place]) (30448) Comment: Performed By: #### CBC, ADIF F, ANEU, APTT, PRO, BMP, GFR, PRALB, TRF ####[address] [address] Lymphocytes Auto #/vol 0.60 0.90-4.32 10 3/mcL Low 018 [facility]) (38895) Comment: Performed By: #### CBC, ADIF F, ANEU, APTT, PRO, BMP, GFR, PRALB, TRF ####[address] [address] Lymphocytes/100 WBC Auto (Bld) 4.5 20.0-40.0 % Low 10-23-2018 [facility] ([place]) (02740) Comment: Performed By: #### CBC, ADIF F, ANEU, APTT, PRO, BMP, GFR, PRALB, TRF ####[address] [address] Monocytes/100 WBC Auto (Bld) 3.1 2.0-13.0 % Normal 1 12-24-2017 [facility] ([place]) (15808) Comment: Performed By: #### CBC, ADIF F, ANEU, APTT, PRO, BMP, GFR, PRALB, TRF ####[address] [address] Neutrophils/100 WBC Auto 92.3 50.0-75.0 % High 10-23 [facility] ([place]) (75333) Comment: Performed By: #### CBC, ADIF F, ANEU, APTT, PRO, BMP, GFR, PRALB, TRF ####[address] [address] trf on 2018-10-02 Transferrin mass conc 324 202-336 mg/dL Normal 10-02-20 18 [facility] ([place]) (0000 0) Comment: Performed By: #### CBC, ADIF F, ANEU, APTT, PRO, BMP, GFR, PRALB, TRF ####[address] [address] pro on 2018-10-02 INR Coag RelTime (PPP) 1.1 ratio Normal 018 [facility] ([place]) (31743) Comment: Result Comment: The [employer] (CHEST, 1991, 102:312S-25S)recommended the rapeutic range for oral anticoagulant therapy is:LOW RISK: Prophylaxis of venous thrombosis INR: 2.0-3.0 Treatment of pulmonary embolism 2.0-3.0 P revention of systemic embolism 2.0-3.0HIGH RISK: Mechanical prosthetic valves 2.5-3.5 Performed By: #### CBC, ADIF F, ANEU, APTT, PRO, BMP, GFR, PRALB, TRF ####[place] [address] [place] [address] Prothrombin time (PT) 12.5 9.0-14.6 seconds Normal 10-02-20 18 [facility] Coag time (PPP) [facility] ([place]) (12154) Comment: Result Comment: Effective , Protime results may be affected by some antibiotics (i.e. Ciprofloxa giovanni, Azithromycin, Bactrim) which may potentiate the action of oral anticoagu lants, with further increases in Protime/INR. Performed By: #### CBC, ADIF F, ANEU, APTT, PRO, BMP, GFR, PRALB, TRF ####[address] [address] pralb on 2018-10-02 Prealbumin mass conc 20.3 18.0-38.0 mg/dL Normal 8 [facility] ([place]) (0000 0) Comment: Performed By: #### CBC, ADIF F, ANEU, APTT, PRO, BMP, GFR, PRALB, TRF ####[place] [address] [place] [address] cbc on 2018-10-02 Erythrocyte distribution 16.0 11.5-15.5 % High 10-02 [facility] width Auto Ratio (RBC) ([place]) (77848) Comment: Performed By: #### CBC, ADIF F, ANEU, APTT, PRO, BMP, GFR, PRALB, TRF ####[place] [address] [address] [place] [address] Hematocrit Auto Volume 34.5 34.0-46.0 % Normal 018 [facility] Fraction (Bld) ([place]) (16056) Comment: Performed By: #### CBC, ADIF F, ANEU, APTT, PRO, BMP, GFR, PRALB, TRF ####[address] [address] Hemoglobin mass conc 11.5 12.0-16.0 G/dL Low 8 [facility] (Bld) ([place]) (0000 0) Comment: Performed By: #### CBC, ADIF F, ANEU, APTT, PRO, BMP, GFR, PRALB, TRF ####[place] [address] MCH Auto Entitic mass 27.9 27.0-33.0 pg Normal 10-02-20 18 [facility] ([facility]BC) ([place]) (0000 0) Comment: Performed By: #### CBC, ADIF F, ANEU, APTT, PRO, BMP, GFR, PRALB, TRF ####[place] [address] MCHC Auto mass conc 33.3 32.0-36.0 G/dL Normal 10-02-2018 [facility] ([facility]) ([place]) (0000 0) Comment: Performed By: #### CBC, ADIF F, ANEU, APTT, PRO, BMP, GFR, PRALB, TRF ####[place] [address] MCV Auto Entitic volume 83.6 80.0-99.0 fL Normal 2017 [facility] ([facility]) ([place]) (0000 0) Comment: Performed By: #### CBC, ADIF F, ANEU, APTT, PRO, BMP, GFR, PRALB, TRF ####[address] [address] Platelet mean volume Auto 8.1 6.6-10.5 fL Normal 09-14 [facility] Entitic volume (Bld) ([place]) (46239) Comment: Performed By: #### CBC, ADIF F, ANEU, APTT, PRO, BMP, GFR, PRALB, TRF ####[address] [address] Platelets Auto #/vol 255 150-450 10 3/mcL Normal 8 [facility]) (40706) Comment: Performed By: #### CBC, ADIF F, ANEU, APTT, PRO, BMP, GFR, PRALB, TRF ####[address] [address] RBC Auto #/vol 4.13 4.10-5.30 10 6/mcL Normal 10-02-2018 [facility] ([place]) (33314) Comment: Performed By: #### CBC, ADIF F, ANEU, APTT, PRO, BMP, GFR, PRALB, TRF ####[address] [address] WBC Auto #/vol ([facility]) 4.40 4.50-10.80 10 3/mcL Low 10-02-20 18 [facility] ([place]) (0000 0) Comment: Performed By: #### CBC, ADIF F, ANEU, APTT, PRO, BMP, GFR, PRALB, TRF ####[address] [address] bmp on 2018-10-02 Calcium mass conc 8.6 8.4-10.1 mg/dL Normal 10-02-2018 A Count includes the [facility]) (09259) Comment: Performed By: #### CBC, ADIF F, ANEU, APTT, PRO, BMP, GFR, PRALB, TRF ####[address] [address] Chloride molar conc 103 98-110 mEq/L Normal 10-02-2018 [facility] ([place]) (28223) Comment: Performed By: #### CBC, ADIF F, ANEU, APTT, PRO, BMP, GFR, PRALB, TRF ####[address] [address] CO2 molar conc 28 22-32 mEq/L Normal 10-02-2018 [facility] ([place]) (74570) Comment: Performed By: #### CBC, ADIF F, ANEU, APTT, PRO, BMP, GFR, PRALB, TRF ####[place] [address] Creatinine mass conc 0.74 0.50-1.20 mg/dL Normal 8 [facility]) (0000 0) Comment: Performed By: #### CBC, ADIF F, ANEU, APTT, PRO, BMP, GFR, PRALB, TRF ####[place] [address] Electrolyte Balance 8.0 4.0-15.0 mEq/L Normal 10-02-2018 [facility]) (0000 0) Comment: Performed By: #### CBC, ADIF F, ANEU, APTT, PRO, BMP, GFR, PRALB, TRF ####[place] [address] Glucose mass conc 87 82-115 mg/dL Normal 10-02-2018 A Count includes the [facility]) (53305) Comment: Performed By: #### CBC, ADIF F, ANEU, APTT, PRO, BMP, GFR, PRALB, TRF ####[place] [address] Potassium molar conc 4.0 3.5-5.0 mEq/L Normal 8 [facility]) (0000 0) Comment: Performed By: #### CBC, ADIF F, ANEU, APTT, PRO, BMP, GFR, PRALB, TRF ####[place] [address] Sodium molar conc 139 136-145 mEq/L Normal 10-02-2018 A Count includes the [facility]) (73924) Comment: Performed By: #### CBC, ADIF F, ANEU, APTT, PRO, BMP, GFR, PRALB, TRF ####[address] [address] Urea nitrogen mass conc 18.0 8.0-22.0 mg/dL Normal 2017 [facility]) (69766) Comment: Performed By: #### CBC, ADIF F, ANEU, APTT, PRO, BMP, GFR, PRALB, TRF ####[address] [address] Urea nitrogen/Creatinine mass 24.3 10.0-22.0 ratio High 10-02-2018 [facility] ([place]) (63451) Comment: Performed By: #### CBC, ADIF F, ANEU, APTT, PRO, BMP, GFR, PRALB, TRF ####[address] [address] aptt on 2018-10-02 aPTT Coag time (Bld) Unknown Normal 8 [facility]) (22827) Comment: Performed By: #### CBC, ADIF F, ANEU, APTT, PRO, BMP, GFR, PRALB, TRF ####[address] [address] aPTT Coag time (Bld) 27.1 25.0-35.0 seconds Normal 8 [facility] ([place]) (05842) Comment: Result Comment: For Heparin anticoagulation therapy, the recommendedtherapeutic range is: 54-77 seconds (APTT Correlationwith Anti-Xa therapeutic range of 0.3-0.7 units/ml).PLEASE REFERENCE THE PHARMACY PROTOCOL FOR DOSING. Performed By: #### CBC, ADIF F, ANEU, APTT, PRO, BMP, GFR, PRALB, TRF ####[address] [address] .neuabs on Neutrophil, Absolute 2.30 2.25-8.10 10 3/mcL Normal 8 [facility] ([place]) (04923) Comment: Performed By: #### CBC, ADIF F, ANEU, APTT, PRO, BMP, GFR, PRALB, TRF ####[address] [address] .gfr on 2018-10-02 GFR >60 Normal 8 [facility]) (52453) Comment: Result Comment: GFR Populati on mean [...] ANEU, APTT, PRO, BMP, GFR, PRALB, TRF ####[place] [address] [place] [address] GFR Non- >60 Normal 10-02 [facility] ([place]) (70076) Comment: Result Comment: GFR Populati on mean [...] ANEU, APTT, PRO, BMP, GFR, PRALB, TRF ####[address] [address] .auto diff on 10-02 Ammonia mass conc 0.50 0.09-1.40 10 3/mcL Normal 10-02-2018 [facility] ([place]) (59613) Comment: Performed By: #### CBC, ADIF F, ANEU, APTT, PRO, BMP, GFR, PRALB, TRF ####[address] [address] Basophils Auto #/vol 0.00 0.00-0.27 10 3/mcL Normal 8 [facility]) (34737) Comment: Performed By: #### CBC, ADIF F, ANEU, APTT, PRO, BMP, GFR, PRALB, TRF ####[address] [address] Basophils/100 WBC Auto ([facility]) 0.5 0.0-2.5 % Normal 1 12-02-2017 [facility]) (0000 0) Comment: Performed By: #### CBC, ADIF F, ANEU, APTT, PRO, BMP, GFR, PRALB, TRF ####[address] [address] Eosinophils Auto #/vol 0.20 0.00-0.65 10 3/mcL Normal 018 [facility]) (57542) Comment: Performed By: #### CBC, ADIF F, ANEU, APTT, PRO, BMP, GFR, PRALB, TRF ####[address] [address] Eosinophils/100 WBC Auto 3.7 0.0-6.0 % Normal 10-02 [facility]) (72425) Comment: Performed By: #### CBC, ADIF F, ANEU, APTT, PRO, BMP, GFR, PRALB, TRF ####[address] [address] Lymphocytes Auto #/vol 1.40 0.90-4.32 10 3/mcL Normal [address] [place] [address]) (36283) Comment: Performed By: #### CBC, ADIF F, ANEU, APTT, PRO, BMP, GFR, PRALB, TRF ####[address] [address] Lymphocytes/100 WBC Auto 32.3 20.0-40.0 % Normal 10-02 [facility]) (77809) Comment: Performed By: #### CBC, ADIF F, ANEU, APTT, PRO, BMP, GFR, PRALB, TRF ####[facility] [place] [address] Monocytes/100 WBC Auto 10.6 2.0-13.0 % Normal 018 [facility]) (22841) Comment: Performed By: #### CBC, ADIF F, ANEU, APTT, PRO, BMP, GFR, PRALB, TRF ####[facility] [place] [address] Neutrophils/100 WBC Auto 52.9 50.0-75.0 % Normal 10-02 [facility]) (94988) Comment: Performed By: #### CBC, ADIF F, ANEU, APTT, PRO, BMP, GFR, PRALB, TRF ####[facility] [place] [address] xr pelvis 1 vw on 2 XR PELVIS 1 VW * * *Final Report* * *DATE OF Leonie l 08-01-2017 [facility] EXAM: Aug 01 2017 7:08AM CHRISTO ([id number]) 1456 - XR PELVIS 1 VW / REASON: [id number], unspecified * * * * Physician Interpretation [...] EST progress on 2017-07 PROGRESS HNO ID: [id number]: Normal 07-14 [facility] (Ct) [place], CTService: ([id number]) (none)Author Type: Clinical TechnicianType: Progress NotesFiled: 08/01/2017 7:22 AMNote Text:NAME:Cr Mary: August 01, 2017[facility] [id number] X-Ray COMPLETEDTECH ID SIGN: NAZ ANGEL office visit: screening colonoscopy on 2017-05-04 Dietary management yes Invalid 05-04-2017 [facility] Surgical education, Interpretation Code 7 [facility] guidance, and (76803 ) counseling (procedure) Documentation of Done Invalid 05-04-2017 [facility] Surgical current medications Interpretation Code 05-04-2017 [facility] (procedure) ([id number]) Protein mass conc Done 05-04-2017 [facility] Surgical 05-04-2017 Associate s ([id number]) Tobacco smoking Never Invalid 05-04-2017 - [facility] Surgical status [facility] Interpretation Code 05-04-20 17 [facility] ([id number]) Tobacco smoking Never smoker 05-04-2017 [facility] Surgical status [facility] 05-04-2017 [facility] marysol (44497) Tobacco use HS Never smoker Invalid 05-04-2017 [facility] Surgical Interpretation Code 05-04-2017 [facility] ([id number]) lab report: liver profile on 2016-08-24 Alanine 16 12-78 U/L Invalid 08-24-2016 [facility] Diana gical aminotransferase Interpretation 08-24-20 16 [facility] (ALT) Code (92450) Albumin 3.7 3.4-5.0 g/dL Invalid 08-24-2016 [facility] Diana gical Interpretation 08-24-2016 Asso ciates Code (40655) Alkaline phosphatase 74 50-136 U/L Invalid [facility] Surgical (ALP) Interpretation 08-24-2016 Asso ciates Code (13071) ALP enzyme act/vol 74 50-136 U/L 08-24-2016 [facility] Surgical (Bld) 08-24-2016 [facility] ([id number]) Aspartate 20 15-37 U/L Invalid 08-24-2016 [facility] Diana gical aminotransferase Interpretation 08-24-20 16 [facility] (AST) Code (74094) Bilirubin (direct) 0.12 0.00-0.30 mg/dL Invalid 08-24-2016 [facility] Surgical Interpretation 08-24-2016 Asso ciates Code (00320) Bilirubin (total) 0.50 0.20-1.00 mg/dL Invalid 08-24-2016 - [facility] Surgical Interpretation 08-24-2016 Asso ciates Code (66356) Globulin 4.2 2.3-3.5 g/dL High 08-24-2016 - [facility] Diana gical 08-24-2016 Associate [facility] ([id number]) Globulin mass conc 4.2 2.3-3.5 g/dL High 08-24-2016 [facility] Surgical (S) 08-24-2016 Associate [facility] ([id number]) Protein 7.9 6.4-8.2 g/dL Invalid 08-24-2016 [facility] Diana gical Interpretation 08-24-2016 Asso ciates Code (96117) lab report: cbc-complete blood cnt no di ff on 2016-08-24 Erythrocyte 44.9 35.1-43.9 fL High 08-24-2016 [facility] S urgical distribution 08-24-2016 Associ ates width Ratio (53022) (RBC) Erythrocyte 13.8 11.6-14.6 % 08-24-2016 [facility] S urgical distribution 08-24-2016 Associ ates width Ratio (77674) (RBC) Erythrocytes 4.47 4.2-5.4 10*6/u Invalid 08-24-2016 [facility] Surgical (RBC) L Interpretation 08-24-2016 Asso ciates Code (33249) Hematocrit (HCT) 40.2 37-47 % Invalid 08-24-2016 [facility] Surgical Interpretation 08-24-2016 Asso ciates Code (67590) Hematocrit 40.2 37-47 % 08-24-2016 [facility] Tony rgical Volume Fraction 08-24-2016 Ass ociates (Bld) (74563) Hemoglobin (HGB) 13.3 12.0-15.0 g/dL Invalid 08-24-2016 - [facility] Surgical Interpretation 08-24-2016 Asso ciates Code (11470) MCH 29.8 27.0-32.0 pg Invalid 08-24-2016 [facility] Diana gical Interpretation 08-24-2016 Asso ciates Code (64628) MCH Entitic mass 29.8 27.0-32.0 pg 08-24-2016 - [facility] Surgical (RBC) 08-24-2016 Associate s (77497) MCHC 33.1 32-36 Invalid 08-24-2016 [facility] Diana gical G/GL Interpretation 08-24-2016 Asso ciates Code (95515) MCHC mass conc 33.1 32-36 08-24-2016 - H Surgical (RBC) G/GL 08-24-2016 Associate s ([id number]) MCV 89.9 81-99 fL Invalid 08-24-2016 [facility] Diana gical Interpretation 08-24-2016 Asso ciates Code (87217) MCV Entitic 89.9 81-99 fL 08-24-2016 - [facility] S urgical volume (RBC) 08-24-2016 Associ ates ([id number]) Platelet mean 10.3 6.2-12.0 fL 08-24-2016 [facility] Surgical volume Entitic 08-24-2016 Asso ciates volume (Bld) (81039) Platelets 279 150-450 10*3/m Invalid 08-24-2016 [facility] Dinaa gical m3 Interpretation 08-24-2016 Asso ciates Code ([id number]) Platelets #/vol 279 150-450 10*3/m 08-24-2016 - [facility] (Bld) m3 08-24-2016 Associate s ([id number]) PMV by 10.3 6.2-12.0 fL Invalid 08-24-2016 [facility] Diana gical Esau-Holly Interpretation 08-24-2016 Ass ociates Code ([id number]) RBC #/vol (Bld) 4.47 4.2-5.4 10*6/u 08-24-2016 - [facility] L 08-24-2016 Associate s ([id number]) RDW-CA 13.8 11.6-14.6 % Invalid 08-24-2016 [facility] Diana gical Interpretation 08-24-2016 Asso ciates Code ([id number]) red blood cell 44.9 35.1-43.9 fL High 08-24-2016 - [facility] distribution 08-24-2016 Associ ates width, size (75765) density WBC #/vol (Bld) 6.1 4.4-11.0 10*9/L 08-24-2016 - [facility] 08-24-2016 Associate s ([id number]) WBC (Leukocytes) 6.1 4.4-11.0 10*9/L Invalid 08-24-2016 - [facility] Surgical Interpretation 08-24-2016 Trevor culver Code (38000) office visit: new patient consult abnorm al mammogram referral from dr. yang on 2016-07-18 Breast Abnormal Left Invalid 07-18-2016 [facility] Surgical Mammogram Interpretation Code 07-18-2016 [facility] screening (27240) MG Breast Abnormal Left 07-18-2016 [facility] Surgical screening 07-18-2016 Associate s ([id number]) replaced document: tsh on 2012-02-02 Thyroid stimulating 1.67 0.358-3.74 u[iU]/mL Normal [facility] Surgical hormone (TSH) 02-02-2012 Assoc iates ([id number]) replaced document: bmp on 2012-02-02 Calcium 8.7 8.5-10.1 mg/dL Normal 02-02-2012 [facility] Diana gical 02-02-2012 Associate s ([id number]) Chloride 100 98-107 mmol/L Normal 02-02-2012 [facility] Diana gical 02-02-2012 Associate s ([id number]) Creatinine 0.9 0.6-1.0 mg/dL Normal 02-02-2012 [facility] Tony rgical 02-02-2012 Associate s ([id number]) Glucose 119 70-110 mg/dL High 02-02-2012 [facility] Diana gi02-02-2012 Associate s ([id number]) Glucose mass conc 119 70-110 mg/dL High 02-02-2012 [facility] Surgical 02-02-2012 Associate s ([id number]) Potassium 3.3 3.5-5.1 mmol/L Low 02-02-2012 [facility] Diana gical 02-02-2012 Associate s ([id number]) Sodium 139 136-145 mmol/L Normal 02-02-2012 [facility] Diana gical 02-02-2012 Associate s ([id number]) Urea nitrogen 14 7-18 mg/dL Normal 02-02-2012 [facility] Surgical 02-02-2012 Associate s ([id number]) lab report: btnp on 2012-02-02 BTNP 15.7 <100 pg/mL Normal 02-02-2012 - [facility] Diana gical 02-02-2012 Associate s ([id number]) GE use only - for 15.7 <100 pg/mL Normal 02-02-2012 - [facility] Surgical LinkLogic import 02-02-2012 As sociates ([id number]) when terms are not otherwise specified ekg report: midmark ecg observations on 2012-01-31 EKG QRS axis 14 deg 01-31-2012 - [facility] Surgical 01-31-2012 Associate s ([id number]) electrocardiogram Sinus Rhythm Invalid [facility] Surgical interpretation -RSR(V1) Interpretation 01-31-2012 Associates -nondiagnost Code ([id number]) ic . PROBABLY NORMAL Interpretation Sinus Rhythm 01-31-2012 - [facility] Surgical -RSR(V1) 01-31-2012 Associate s -nondiagnost ([id number]) ic . PROBABLY NORMAL P [place] 45 deg 01-31-2012 - [facility] Diana gical 01-31-2012 Associate s ([id number]) P wave axis, 45 deg Invalid 01-31-2012 [facility] Surgical electrocardiogram Interpretation 012 [facility] Code ([id number]) VA Interval 146 ms 01-31-2012 - [facility] S urgical 01-31-2012 Associate s ([id number]) VA interval, 146 ms Invalid 01-31-2012 [facility] Surgical electrocardiogram Interpretation 012 [facility] Code ([id number]) Pulse (Heart Rate) 430 ms Invalid 01-31-2012 - [facility] Surgical Interpretation 01-31-2012 Asso ciates Code ([id number]) Pulse (Heart Rate) 69 BPM /min Invalid 01-31-2012 - [facility] Surgical Interpretation 01-31-2012 Asso ciates Code ([id number]) QRS axis, 14 deg Invalid 01-31-2012 - [facility] Diana gical electrocardiogram Interpretation 012 [facility] Code ([id number]) QRS Duration 98 ms 01-31-2012 - [facility] Surgical 01-31-2012 Associate s ([id number]) QRS duration, 98 ms Invalid 01-31-2012 [facility] Surgical electrocardiogram Interpretation 012 [facility] Code ([id number]) QT Interval new path ms 01-31-2012 - [facility] Surgical 01-31-2012 Associate s ([id number]) QT interval, new path ms Invalid 01-31-2012 - [facility] Surgical electrocardiogram Interpretation 012 [facility] Code ([id number]) T [place] -1 deg 01-31-2012 - [facility] Diana gical 01-31-2012 Associate s ([id number]) T wave axis, -1 deg Invalid 01-31-2012 [facility] Surgical electrocardiogram Interpretation 012 [facility] Code ([id number]) office visit: new patient consult abnorm al mammogram referral from dr. yang on 2005-11-21 General categories hysterectomy Invalid 11-21-19 [facility] Surgical [interpretation] of Interpretation Code 11-21-2005 [facility] Cervical or vaginal (52079) smear or scraping by Cyto stain General categories hysterectomy 11-21-19 - [facility] Surgical Cyto stain Interp 11-21-2005 A ssociates (Cervical or vaginal (43014) smear or scraping) office visit: new patient consult abnorm al mammogram referral from dr. yang on 2000-11-20 Colonoscopy Normal Invalid 11-20-2000 [facility] S urgical (procedure) Interpretation Code 11-20-19 01 Associates ([id number]) Protein mass conc Normal 11-20-2000 - [facility] Surgical 11-20-2000 Associate s ([id number]) Vital Signs Vital Sign Description Value / Unit Date Location The following section is limited to 5 en tries per type and includes entries from the following time range: [id number] - [id number] 2. BMI (Body Mass Index) 38.48 kg/m2 05-04-2017 - 05-04-2017 [facility] Surgical [facility] ([id number]) Body Temperature 97.9 [degF] 07-24-2020 [facility] c ([id number]) Body Temperature 98.1 [degF] 05-04-2017 - 05-04-2017 [facility] Diana gical [facility] ([id number]) Body Temperature 98.1 [degF] 08-10-2016 - 08-10-2016 [facility] Diana gical [facility] ([id number]) Body weight 106.14 kg 07-24-2020 [facility] ([id number]) BP Diastolic 70 mm[Hg] 07-24-2020 [facility] ([id number]) BP Diastolic 87 mm[Hg] 05-04-2017 - 05-04-2017 [facility] Surg ical Associates ([id number]) BP Systolic 134 mm[Hg] 07-24-2020 [facility] ([id number]) BP Systolic 136 mm[Hg] 05-04-2017 - 05-04-2017 [facility] Surg ical Associates ([id number]) BSA (Body Surface Area) 2.09 m2 09-21-2016 - 09-21-2016 [facility] Surgical [facility] ([id number]) Heart rate 69 /min 01-31-2012 - 01-31-2012 [facility] Surg ical Associates ([id number]) Heart rate 430 ms 01-31-2012 - 01-31-2012 [facility] Surg ical [facility] ([id number]) Height 162.56 cm 05-04-2017 - 05-04-2017 [facility] Surg ical [facility] ([id number]) Height 162.56 cm 09-21-2016 - 09-21-2016 [facility] Surg ical [facility] ([id number]) Pulse (Heart Rate) 77 /min 07-24-2020 [facility] ([id number]) Pulse (Heart Rate) 71 /min 05-04-2017 - 05-04-2017 [facility] S urgical Associates ([id number]) Pulse Oximetry 98 % 05-04-2017 - 05-04-2017 [facility] Surg ical [facility] ([id number]) Respiratory Rate 20 /min 05-04-2017 - 05-04-2017 [facility] Diana gical [facility] ([id number]) Weight 101.7 kg 05-04-2017 - 05-04-2017 [facility] Surg ical [facility] ([id number]) Weight 105.45 kg 09-21-2016 - 09-21-2016 [facility] Surg ical [facility] ([id number]) Encounters Date Type Reason Provider Location 08-01-2017 - Ambulatory [facility] 08-01-2017 ([id number]) 10-26-2018 - Evaluation and PIERRE Cobian ty:R 11-03-2018 management of RAQUEL DUNN inpatient VINICIO GAN 10-23-2018 - Evaluation and CITLALY DUNN Facilit y:A 10-26-2018 management of VINICIO FARLEY inpatient [facility] CARA DUMONT 07-24-2020 - Patient encounter Malignant neoplasm Sariah Lester Hematology/Oncol 07-24-2020 procedure of upper-outer Vanesa (Sw) [...] Date Provider Location Dietary management 05-04-2017 - [facility] Surgical education, guidance, and 05-04-2017 Assoc[facility] marysol ([id number]) counseling Follow Up Appt Other 05-04-2017 - Eliana Hancock MD [facility] Tony rgical 05-04-2017 Associates ([id number]) Screening for malignant 05-04-2017 [facility] Surg ical neoplasm of colon [facility] ([id number] [id number]) Follow-up visit 09-21-2016 - Jarod Chavez [facility] Surgica l 09-23-2016 MD Soto ([id number] 1) *Hepatic Function Panel 08-24-2016 - Jarod Chavez [facility] Surgical 08-25-2016 MD Soto ([id number] 1) CBC W Auto Differential 08-24-2016 - Jarod Chavez [facility] Surgical panel - Blood 08-25-2016 MD Soto ([id number] 1) Chest x-ray 4/> views 08-24-2016 - Jarod Chavez [facility] S urgical 09-23-2016 MD Soto ([id number] 1) Follow Up Appt 2 weeks 08-24-2016 - Jarod Chavez [facility] Surgical 08-25-2016 MD Soto ([id number] 1) Follow Up after Imaging/labs 08-10-2016 - Jarod jim [facility] Surgical 08-25-2016 MD Soto ([id number] 1) Mammogram, both breasts 08-10-2016 - Jarod Chavez [facility] Surgical 08-11-2016 MD Soto ([id number] 1) Us exam, breast(s) 08-10-2016 - Jarod Chavez [facility] Surg ical 08-11-2016 MD Soto ([id number] 1) Mammography 01-24-2013 - [facility] 01-24-2013 ([id number]) Follow Up Appt Other 04-11-2012 - Mejia Lozano MD [facility] Surgi ev 04-11-2012 Associates ([id number] 1) *BMP 01-31-2012 - Mejia Lozano MD [facility] Surgical 02-02-2012 Associates ([id number] 1) *CBC with Differential 01-31-2012 - Mejia Lozano MD [facility] Diana gical 02-02-2012 Associates ([id number] 1) BNP 01-31-2012 - Mejia Lozano MD [facility] Surgical 02-02-2012 Associates ([id number] 1) Echocardiography 01-31-2012 - Mejia Lozano MD [facility] Surgical 02-02-2012 Associates ([id number] 1) Electrocardiogram, complete 01-31-2012 - Mejia Lozano MD [facility] Surgical 01-31-2012 Associates ([id number] 1) Follow Up Appt 2 months 01-31-2012 - Mejia Lozano MD [facility] Tony rgical 01-31-2012 Associates ([id number] 1) Nuclear stress test 01-31-2012 - Mejia Lozano MD [facility] Surgic al -adenosine 02-02-2012 Associates ([id number] 1) Thyroid stimulating hormone 01-31-2012 - Mejia Lozano MD [facility] Surgical (TSH) 02-02-2012 [facility] ([id number] 1) Colonoscopy 10-19-2004 - [facility] 10-19-2004 ([id number]) Plan of Treatment Plan Description Date Location DTAP,TDAP,TD (2 - Td) DTAP,TDAP,TD (2 - Td) 01-07-2023 - [facility] 01-07-2023 ([id number]) INFLUENZA (#1) INFLUENZA (#1) 2020 - [facility] 07-14-2020 ([id number]) ADVANCE DIRECTIVE ADVANCE DIRECTIVE 2018 - [facility] inic DISCUSSION DISCUSSION 2018 ([id number]) BONE DENSITY BONE DENSITY 2018 - [facility] 2018 ([id number]) PNEUMOVAX AGE 65 AND OVER PNEUMOVAX AGE 65 AND OVER 2018 - [facility] WITH 5YR LOOKBACK (#1) WITH 5YR LOOKBACK (#1) 2018 ([id number]) Appointment Appointment 05-22-2017 - [facility] Surgical 05-22-2017 Associates ([id number] 1) Appointment Appointment 05-04-2017 [facility] Surgical 05-04-2017 Associates ([id number] 1) Colonoscopy Colonoscopy 05-04-2017 [facility] Surgical 05-04-2017 Associates ([id number] 1) Follow Up Appt Other Follow Up Appt Other 05-04-2017 [facility] Tony rgical 05-04-2017 Associates ([id number] 1) Follow Up as needed Follow Up as needed 09-21-2016 [facility] Surg ical 09-23-2016 Associates ([id number] 1) Primary Care Physician Primary Care Physician 09-21-2016 [facility] Surgical Haim HubbardeyHaim Albarraneye 09-30-2016 Trevor culver ([id number]) [facility], [address] [facility], [address], [address], [address], [place], [address] [place], [address] Oncology Referral no information 09-12-2016 [facility] Surgical Frankie Khan MD, 09-12-2016 [facility] ([id number]) [facility], [address], [place], [address] *Hepatic Function Panel *Hepatic Function Panel 08-24-2016 [facility] Surgical 08-25-2016 [facility] ([id number]) *CBC *CBC 08-24-2016 - [facility] Surgical 08-25-2016 [facility] ([id number] 1) Chest XRAY Chest XRAY 08-24-2016 [facility] Surgical 09-23-2016 [facility] ([id number] 1) Follow Up Appt 2 weeks Follow Up Appt 2 weeks 08-24-2016 - [facility] Surgical 08-25-2016 Associates ([id number] 1) Oncology Referral Tao Oncology Referral Tao 08-24-2016 [facility] Chidi Morgan MD, [address] Morgan MD, [address] 08-24-2016 [facility] ([id number]) [place], [address] [place], [address] Stereotactic localization Stereotactic localization 08-11-2016 - [facility] Surgical guidance for breast guidance for breast 08-11-2016 Associat meño ([id number]) biopsy biopsy Follow Up after Follow Up after 08-10-2016 - [facility] Surgical Imaging/labs Imaging/labs 08-25-2016 [facility] ([id number] 1) Mammogram, Diagnostic, Mammogram, Diagnostic, 08-10-2016 [facility] Surgical both breasts both breasts 08-11-2016 Associates ([id number] 1) US Breast(s) US Breast(s) 08-10-2016 - [facility] Surgical 08-11-2016 Associates ([id number] 1) LIPID SCREEN LIPID SCREEN 04-30-2015 - [facility] 04-30-2015 ([id number]) COLONOSCOPY COLONOSCOPY 10-19-2014 - [facility] 10-19-2014 ([id number]) MAMMOGRAM MAMMOGRAM 01-24-2014 - [facility] 01-24-2014 ([id number]) DIABETES SCREEN DIABETES SCREEN 04-30-2013 - [facility] 04-30-2013 ([id number]) Follow Up Appt Other Follow Up Appt Other 04-11-2012 - [facility] Tony rgical 04-11-2012 Associates ([id number] 1) *BMP *BMP 01-31-2012 [facility] Surgical 02-02-2012 Associates ([id number] 1) *CBC with Differential *CBC with Differential 01-31-2012 - [facility] Surgical 02-02-2012 Associates ([id number] 1) *Brain Natriuretic *Brain Natriuretic 01-31-2012 [facility] Surgic al Peptide BNP Peptide BNP 02-02-2012 Associates ([id number] 1) Echocardiogram (complete) Echocardiogram (complete) 01-31-2012 [facility] Surgical 01-31-2012 [facility] ([id number] 1) EKG (In office) EKG (In office) 01-31-2012 [facility] Surgical 01-31-2012 [facility] ([id number] 1) Follow Up Appt 2 months Follow Up Appt 2 months 01-31-2012 - [facility] Surgical 01-31-2012 [facility] ([id number] 1) Nuclear stress test Nuclear stress test 01-31-2012 [facility] Surg ical -adenosine -adenosine 01-31-2012 [facility] ([id number] 1) *TSH *TSH 01-31-2012 [facility] Surgical 02-02-2012 Associates ([id number] 1) SHINGRIX VACCINE (1 of 2) SHINGRIX VACCINE (1 of 2) 2003 - [facility] 2003 ([id number]) ANNUAL PCP TEAM CHRONIC ANNUAL PCP TEAM CHRONIC 1971 - [facility] DISEASE VISIT DISEASE VISIT 1971 (74907) BP CONTROLLED (<130/80) BP CONTROLLED (<130/80) 1971 - [facility] 1971 ([id number]) HEPATITIS C SCREENING HEPATITIS C SCREENING 1971 - [facility] 1971 (30175) Patient education no information [facility] Surgical [facility] (4469 1) no information [facility] (71080) Immunizations Vaccine Notes Status Date Location Tdap (Age 7+) tetanus toxoid, (completed) 01-07-2013 - [facility] linic reduced diphtheria 01-07-2013 (58977) toxoid, and acellular pertussis vaccine, adsorbed Payers Payer Name Policy Number Location MEDICARE [id number] [facility] (44 195) MEDICARE PART A [employer] [id number] [facility] ([place]) ([id number]) MMO [id number] [facility] (44 195) [employer] ([place]) [id number] [employer] ([place]) (06801) [id number] [employer] [facility] [place] (68787) [id number] [employer] [facility] [place] (20635) [id number] [employer] [facility] [place] (67295) The following information is from the original human readable contentNo Payer Records FoundNo Payer Records FoundNo Payer Records Found Social History Type Social History Date Location Description Tobacco smoking status Never smoker 01-22-2020 - [facility] NHIS 07-24-2020 ([id number]) Tobacco use and Never used 01-22-2020 - [facility] exposure 07-24-2020 (89856) Alcohol intake Current non-drinker of 01-22-[address] 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 Andrade Routine gynecological examination 04/29/20102011 Overview: [facility] [place] Uterine prolapse without mention of vaginal wall prolapse 01/23/2012 Problem Noted Date Resolved Date Routine general medical examination at a [facility] 010 01/23/2012 facility Overview: 04/29/2010, from Dr. Andrade Routine gynecological examination 04/29/20102011 Overview: [facility] [place] Uterine prolapse without mention of vaginal wall prolapse 01/23/2012 Problem Noted Date Resolved Date Routine general medical examination at a [facility] 010 01/23/2012 facility Overview: 04/29/2010, from Dr. Andrade Routine gynecological examination 04/29/20102011 Overview: [facility] [place] Uterine prolapse without mention of vaginal wall [...] significant for invasive ductal carcinoma,nuclear grade 2. ER/VA both >95%. Moderate ER and strong VA. HER2 2+. Non-amplified by FISH. ?? 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 Oncotype Dx-Recurrence score of 18. S/p lumpectomy along with sentinel lymph node biopsy on 09/07/2016. S/p radiation-Dr. Albert office. - ?No concerning findings on exam. - ?Arimidex-tolerating well overall-had arthritis prior to AI. - Reviewed mammogram with pt. - ?B/l?Mammogram due March 2021. Pt. has this done at [facility]. - ?Follow up in 6 months. - ?Pt. aware to call office with any questions/concerns. ? ? The patient indicates understanding of these issues and agrees with the plan. ? All documentation from previous visit of 01/22/20-Dr. Jones/myself was copied and pasted, documentation has been reviewed and edited as necessary for today's visit. ? ? Sariah Palacios APRN.JOB ESTIMATOR documented in this encounterVanesa Serrano) - 07/24/2020 [...] BE BASED ON THE PRIMARY CLINICAL RECORDS. [facility] provides no warranty or guarantee of the accuracy or completeness of information in this document. UNRECOGNIZED CONTENT PROVIDED BELOW FOR UNRECOGNIZED SECTION INFORMATION SOURCE DATE CREATED AUTHOR AUTHOR'S ORGANIZATIO N 05/09/2018 [facility] DATE CREATED AUTHOR AUTHOR'S ORGANIZATIO N 11/20/2018 [facility] DATE CREATED AUTHOR AUTHOR'S ORGANIZATIO N 07/25/2020 [facility] UNRECOGNIZED CONTENT PROVIDED BELOW FOR UNRECOGNIZED SECTION Source Comments In the event this information is protected by the Federal Confidentiality of Alcohol and Drug Abuse Patient Records regulations: The Federal rules restrict any use of the information to criminally investigate or prosecute any alcohol or drug abuse patient.[facility] the event this information is protected by the Federal Confidentiality of Alcohol and Drug Abuse Patient Records regulations: The Federal rules restrict any use of the information to criminally investigate or prosecute any alcohol or drug abuse patient.[facility] the event this information is protected by the Federal Confidentiality of Alcohol and Drug Abuse Patient Records regulations: The Federal rules restrict any use of the information to criminally investigate or prosecute any alcohol or drug abuse patient.[facility] UNRECOGNIZED CONTENT PROVIDED BELOW FOR UNRECOGNIZED SECTION Reason for Visit Reason Onset Date Comments Refill Request 07/01/2020 Reason Comments Established Patient UNRECOGNIZED CONTENT PROVIDED BELOW FOR UNRECOGNIZED SECTION Miscellaneous Notes Telephone Encounter - Michelle Hale - 07/01/2020 9:45 AM EDTPatient called requesting refill on Anastrozole 1mg Please call [phone] Thank you Michelle Shelby documented in this encounter UNRECOGNIZED CONTENT PROVIDED BELOW FOR UNRECOGNIZED SECTION Nursing Notes Mariluz Archer LPN - 07/24/2020 8:35 AM EDTEst patient. Six month OV. Mariluz Archer LPN documented in this encounter
== END ==
PROVIDERS: PCP Family Medicine; Visit Provider Family Medicine
DX: I10 Essential (primary) hypertension (principal); R73.01 Impaired fasting glucose; D50.9 Iron deficiency anemia, unspecified
CPT/HCPCS: 36415; 82607; 82728; 83036; 83540; 84439; 84443; 85025

== ENCOUNTER → 2020-04-08 13:28 | Outpatient (CLI) | payer MEDICARE, OTHER, SELFPAY ==
--- NOTE | 2020-04-08 13:33 | BI_ITS ---
MAMMOGRAPHY - BILATERAL DIAGNOSTIC REASON FOR EXAM: Female, 64 years old. Abnormal screening mammogram. The patient was called for assessment of the calcifications. PERTINENT HISTORY: TECHNIQUE: Digital bilateral breast dora (3D mammographic acquisition) in the CC and MLO projections. 2-D mediolateral oblique (MLO) and craniocaudad (CC) views of both breasts were obtained. CAD: Full Field Digital Mammography with Computer Added Detection was performed. COMPARISON: Comparison is made with prior study March 27, 2020. FINDINGS: Breast Composition: The breasts are heterogeneously dense, which may obscure small masses. There are no dominant masses or suspicious calcifications. Scattered microcalcifications are seen in both breasts. No focal cluster is seen. No other significant abnormalities are identified. There has been no significant change since the prior study. BI/DIAG MAMM W/CAD, BILAT IMPRESSION: Stable bilateral diagnostic mammogram. One year follow-up recommended. (A) ASSESSMENT CATEGORY: BIRADS Category 2: Benign. A letter regarding these results will be sent to the patient by the facility within 30 days. Approximately 10% of breast cancers are not detected by mammography. A normal mammogram should not delay biopsy of a clinically suspicious abnormality. Electronically Signed: Rancho Lyles, at 14:49 EDT , Service support ,
--- OUTSIDE RECORDS SUMMARY | 2020-08-25 17:58 | XMS RPT_ITS | CCD ---
:1955 External Reference #:[id number] Author Organization [facility] Care Team Providers Name Role Phone Karissa [...] acetaminophen / GI upset Moderate, 01-30-2012 - [facility] Surgical HYDROcodone [facility] (629 05) acetaminophen / GI Upset 10-05-2005 - [facility] inic HYDROcodone Other [place] Translations: [ Repository HYDROCODONE-ACETAMINOPH EN] codeine Translations: [ GI Upset Moderate, 10-05-2005 - [facility] Surgical CODEINE] Moderate [facility] (150 35) Medications Medication Name Sig Date Prescriber Location anastrozole anastrozole (ARIMIDEX) 07-07-2020 [facility] 1 mg tablet Associates (608 21) Indications: 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 90 tablet 3 07/01/2020 Active ANASTROZOLE 1 MG TABS One 05-04-2017 [facility] Tony rgical tablet by mouth daily Associates (87167) ANASTROZOLE [id number] Rosalee Kohli Comment: Take 1 tablet by mouth once daily. apremilast apremilast (OTEZLA) 30 mg 07-24-2020 [facility] Provider [facility] tablet Take 30 mg by mouth ( 57862) once daily. 0 07/24/2020 Discontinued Comment: Take 30 mg by mouth once amy ly. aspirin ADULT ASPIRIN EC LOW STRENGTH 81 05-04-2017 [facility] Surgical Associates (42927) MG TBEC One tablet by mouth daily ASPIRIN [id number] Rosalee Kohli ASPIRIN 81 MG TABS One tablet 01-31-2012 - 08-10-2016 [facility] Surgical Associates by mouth daily as needed (63066) ASPIRIN [id number] Mejia Lozano MD ADULT ASPIRIN EC LOW STRENGTH 01-31-2012 - 08-10-2016 [facility] Associates 81 MG TBEC One tablet by mouth ( 26005) daily ASPIRIN [id number] Rosalee Kohli cyclobenzaprine CYCLOBENZAPRINE HCL 10 MG 01-30-2012 [facility] Surgical TABS As needed As sociates CYCLOBENZAPRINE HCL (12238) [id number] Michelle Norton RN hydroCHLOROthiazide HYDROCHLOROTHIAZIDE 25 MG 01-30-2012 - [facility] Surgical TABS One tablet by mouth 05-04-2017 Ass ociates daily (91610) HYDROCHLOROTHIAZIDE [id number] Rosalee Kohli hydroCHLOROthiazide / LISINOPRIL-HYDROCHLOROTHI 05-04-2017 [facility] Surgical lisinopril AZIDE 10-12.5 MG TABS One As sociates tablet by mouth daily (04305 ) LISINOPRIL-HYDROCHLOROTHI AZIDE [id number] Rosalee Kohli lisinopril-hydrochlorothiazide [facility] Provider [facility] (PRINZIDE,ZESTORETIC) 10-12.5 mg per tablet (38237) Take 1 tablet by mouth once daily. 0 Active Comment: Take 1 tablet by mouth once daily. lisinopril LISINOPRIL 5 MG TABS One 02-02-2012 Michelle Norton RN [facility] Surgical Associates tablet by mouth daily (93006 ) LISINOPRIL [id number] Mejia Lozano MD LISINOPRIL 2.5 MG TABS two tabs once 05-04-2017 [facility] Surgical Associates (67881) daily LISINOPRIL [id number] Rosalee Kohli LORazepam ATIVAN 1 MG TABS 1 08-11-2016 - [facility] Surgi ev tablet PO before 05-04-2017 Associates procedure (23371) LORAZEPAM [id number] Rosalee A Seun meloxicam MOBIC 7.5 MG TABS One 01-30-2012 - [facility] Tony rgical tablet by mouth daily 08-10-2016 Associ ates MELOXICAM (01945) [id number] Michelle Norton RN methylcellulose CITRUCEL 500 MG TABS 05-04-2017 [facility] Surgical One tablet by mouth Associat es daily (47418) METHYLCELLULOSE (LAXATIVE) [id number] Rosalee A Seun multivitamin tablet multivitamin tablet [facility] Provider C leveland Take 1 tablet by Clinic (707 79) mouth once daily. 0 Active multivitamin tablet Take 1 tablet by mouth [facility] (89089) once daily. 0 Active multivitamin tablet Take 1 tablet by mouth [facility] (35506) once daily. 0 Active Comment: Take 1 tablet by mouth once daily. omeprazole [facility] OMEPRAZOLE 20 MG TBEC One 05-04-2017 [facility] Surgical Associates tablet by mouth daily (53849 ) OMEPRAZOLE [id number] Rosalee A Seun [facility] OMEPRAZO[facility] 20 MG 05-04-2017 [facility] Surgica l TBEC One tablet by Associates (4 4691) mouth daily OMEPRAZOLE [id number] Rosalee A Kohli omeprazole 20 mg 01-30-2012 - Talib Jalloh (Hist) [facility] Surgical capsule Indications: 08-10-2016 [facility] (65682) GERD (gastroesophageal reflux disease) Take one(1) capsule daily 1/2 hr before meal. 90 capsule 3 12/27/2012 Active Comment: Take one(1) capsule daily 1/ 2 hr before meal. sertraline ZOLOFT 25 MG TABS One 01-30-2012 - [facility] Tony rgical tablet by mouth daily 08-10-2016 Associ bharath (05437) SERTRALINE HCL [id number] Michelle Norton RN triamcinolone TRIAMCINOLONE ACETONIDE 05-04-2017 [facility] Surgical 0.1 % OINT as needed Aracely gregg (19771) TRIAMCINOLONE ACETONIDE [id number] Rosalee Kohli Problems Active Problems Category Problem Name Status Date Location Anxiety disorders Anxiety disorder Active [facility] Tony rgical Associates (448 91) Cancer of breast Primary malignant Active 08-24-2016 - [facility] Tony rgical neoplasm of female breast As sociates (90538) Esophageal disorders Gastroesophageal reflux Active 0 - [facility] disease (74816) Essential hypertension Hypertensive disorder Active 5 - [facility] Surgical Associates (445 91) Mood disorders Depressive disorder Active 02-16-2007 - [facility] (72031) Osteoarthritis Osteoarthritis Active 11-10-2005 - [facility] Surgica l Associates (447 91) Other nutritional; Overweight Active 05-04-2017 - [facility] Surgi ev endocrine; and Associates (4 1574) metabolic disorders Other nutritional; Obesity Active 11-10-2005 - [facility] endocrine; and (41294) metabolic disorders Other skin disorders Localized scleroderma Active 03-03-2009 - [facility] (59184) Prolapse of female Midline cystocele Active 12-25-2008 - [facility] genital organs (16823) Rheumatoid arthritis Rheumatoid arthritis with Active [facility] Surgical and related disease rheumatoid factor, As sociates (61132) unspecified Secondary malignancies Secondary malignant Active 09-21-2016 - [facility] neoplasm of axillary (40190) lymph nodes Unclassified Screening for malignant Active 05-04-2017 - [facility] Surgical neoplasm of colon Associates (52013) Unclassified Patient encounter status Active 12-27-2012 - [facility] (52811) Past or Other Problems Category Problem Name Status Date Location Abdominal hernia Hiatal hernia Completed 06-16-2010 - [facility] (63136) Anal and rectal Disorder of rectum Completed 12-25-2008 - [facility] conditions (06819) Gastritis and Acute gastritis Completed 10-11-2010 - [facility] linic duodenitis (90606) Nonmalignant breast Mammographic breast Completed 08-10-2016 - [facility] conditions mass [facility] (446 91) Nonspecific chest pain Chest pain, Completed 01-30-2012 - [facility] S urgical unspecified Associates (994 41) Other lower respiratory Dyspnea Completed 01-30-2012 - [facility] Surgical disease Associates (338 44) Pulmonary heart disease Pulmonary embolism Completed 12-11-2008 - [facility] with pulmonary (25819) infarction Spondylosis; Low back pain Completed 02-16-2007 - [facility] ic intervertebral disc (49584) disorders; other back problems Results Result Name Value Range Unit Interpretation Flag Date Location progress on 2020-07 PROGRESS HNO ID: [id number] Normal 07-24-2020 [facility] Author: Vanesa Hua) Juan Manuel [place] ([id number]) Service: ? Author Type: Ham Clerk Type: Progress Notes Filed: 07/24/2020 4:15 PM [...] to treatment Communicate pertinent medical/psychosocial information to [facility] team Provide emotional support to [...] ise. Vanesa TATUM Serrano PROGRESS HNO ID: [id number] Normal 07-24-2020 [facility] Author: Sariah Palacios [place] ([id number]) Service: ? Author Type: Nurse Practitioner Type: [...] the breast. She was referred to Dr. Chvaez. ?? She underwent a left breast core needle biopsy. Pathology si gnificant for invasive ductal carcinoma, nuclear grade 2. ER/FL both >95%. Moderate ER and strong FL. HER2 2+. Non-amplified by FISH. ?? 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 Oncotype Dx-Recurrence score of 18. S/p lumpectomy along with sentinel lymph node biopsy on 08/14. S/p radiation-Dr. Albert office. - ?No concerning findings on exam. - ?Arimidex-tolerating well overall-had arthritis prior to A I. - Reviewed mammogram with pt. - ?B/l?Mammogram due March 2021. Pt. has this done at [facility]. - ?Follow up in 6 months. - ?Pt. aware to call office with any questions/concerns. ? ? The patient indicates understanding of these issues and agre es with the plan. ? All documentation from previous visit of 01/22/20-Dr. Jones/rpaneeth yself was copied and pasted, documentation has been reviewed and edite d as necessary for today's visit. ? ? Sariah Palacios, CHANNING.BIODIESEL PLANT OPERATIONS ENGINEER cnsw on 2020-07-24 CNSW Social Work (HEMAWS) Normal 0 [facility] CR LEE ([id number]) 1955 [facility] Date Time Provider Department (35250) 07/24/20 VANESA SERRANO (SW) During your visit [...] 2020-07-14 CNOVSP Visit (SP) Office (ELDON) Normal [facility] [place] LEE ([id number]) 1955 [place] Date Time Provider Department (84507) 07/24/20 9:00 AM SARIAH PALACIOS During your visit today, we recorded the following informati on about you: Temperature Pulse Blood pressure Weight 97.9 degrees 77/minute 134/70 106.1 kg Mariluz Archer LPN 07/24/2020 9:10 AM Signed Est patient. Six month OV. Mariluz Palacios APRN.[employer] OPERATIONS ENGINEER 07/24/2020 9:38 AM Signed Chief Complaint Patient [...] for invasive ductal carcinoma, nuclear grade 2. ER/FL both >95%. Moderate ER and strong FL. HER2 2+. Non-amplified by FISH. ?? 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 Oncotype Dx-Recurrence score of 18. S/p lumpectomy along with sentinel lymph node biopsy on 08/14. S/p radiation-Dr. Albert office. - ?No concerning findings on exam. - ?Arimidex-tolerating well overall-had arthritis prior to A I. - Reviewed mammogram with pt. - ?B/l?Mammogram due March 2021. Pt. has this done at [facility]. - ?Follow up in 6 months. - ?Pt. aware to call office with any questions/concerns. ? ? The patient indicates understanding of these iss ues and agrees with the plan. ? All documentation from previous visit of 01/22/20-Dr. Praneeth harry/myself was copied and pasted, documentation shine s been reviewed and edited as necessary for today's visit. ? ? Sariah Palacios, CHANNING.[employer] OPERATIONS ENGINEER Referring Provider: SARIAH PALACIOS [[id number]] Allergies As of Date: 07/24/2020 Noted Allergy [...] 03/03/2009 More... Routine general medical examination at [facility]*04/29/2010 0 01/23/2012 Class: Chronic More... Routine [...] 2020-06 OBSOLETE Refill (HEMAWS) Normal 07-01-2020 [facility] ([id number]) 1955 [facility] Date Time Provider Department (55671) 07/01/20 SARIAH PALACIOS During your visit today, we recorded the following informati on about you: Michelle Westvenkat Pss 07/01/2020 9:46 AM Signed Patient called requesting refill on Anastrozole 1mg Please call [phone] Thank you Michelle Westvenkat Pss Allergies As [...] More... Routine general medical examination at a [facility]*04/29/2010 0 01/23/2012 Class: Chronic More... Routine [...] on 2020-04-09 WESLEYN Telephone (ELDON) Normal 04-09-2020 [facility] CR LEE ([id number]) 1955 [place] Date Time Provider Department (42777) 04/09/20 SARIAH PALACIOS During your visit today, we recorded the following informati on about you: Sariah Palacios APRN.CNP 04/09/2020 3:20 PM Signed Please inform pt. that her dx mamm done at [facility] on 04/08/20 lo oks good. Follow up as scheduled. Sariah Palacios, CHANNING.[employer] OPERATIONS ENGINEER Alisha Orellana, RN, RN 04/09/2020 3:23 PM [...] 03/03/2009 More... Routine general medical examination at [facility]*04/29/2010 0 01/23/2012 Class: Chronic More... Routine [...] on 2020-04-03 WESLEYN Telephone (ELDON) Normal 04-03-2020 [facility] LEECR GOSS Nan ([id number]) 1955 F [facility] Time Provider Department (97238) 04/03/20 SARIAH PALACIOS During your visit today, we recorded the following informati on about you: Alesha Thompson [facility] 04/03/2020 12:22 PM Signed Patient called in inquiring about the results of her mammo gram that she had done last week. Please advise. Alesha Palacios APRN.[employer] OPERATIONS ENGINEER 04/03/2020 2:05 PM Signed It was not sent over to us. I spoke with pt. and reviewed mammogram. Please schedule b/l dx mamm/US at [facility] soon. Pt. aware that this is being scheduled. Orders in. Thank you. Sariah Palacios APRN.WESLEY Galeano [facility] 04/03/2020 3:17 PM Signed I called and scheduled patient for diagnostic mammogram and ultrasound at [facility] for 04/08/20 @ 2:00pm. I called Cr and re layed these appointments to her and she stated understanding. Order have been faxed to [facility] scheduling at [phone] Nikos Galeano [facility] Allergies As of Date: 04/03/2020 Noted Allergy [...] Diagnosis:Abnormal mammogram of both breasts [R9 2.8] Order(s):[facility] BILAT [[id number]] Order #: [id number] [employer] BREAST LTD RT [[id number]] Order #: [id number] [employer] BREAST LTD LT [[id number]] Order #: [id number] FUTURE Prescriptions as of 04/03/2020 Sig: OTEZLA [...] 04/03/20 progress on 2020-01 PROGRESS HNO ID: [id number] Normal 01-22-2020 [facility] Author: Sariah Palacios [facility] ([id number]) Service: ? Author Type: Nurse Practitioner Type: [...] for invasive ductal carcinoma, nuclear grade 2. ER/FL both >95%. Moderate ER and strong FL. HER2 2+. Non-amplified by FISH. ?? 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 2. Encounter for screening mammogram for high-risk patient - ICD9: V76.11, ICD10: Z12.31 - ?No concerning findings on exam. - ?Arimidex-tolerating fairly well except for hot flashes. - ?B/l?Mammogram due March 2020. Pt. has this done at [facility]. - ?Follow up in 6 months-pending mammogram. - ?Pt. aware to call office with any questions/concerns. ? ? The patient indicates understanding of these issues an d agrees with the plan. ? ? ? Sariah Palacios APRN.CNP ? jonovsp on 2020-01-12 1 CNOVSP Visit (SP) Office (ELDON) Normal [facility] CR LEE ([id number]) 1955 [place] Date Time Provider Department (94045) 01/22/20 9:00 AM SARIAH PALACIOS During your visit today, we recorded the following informati on about you: Temperature Pulse Blood pressure Weight 98.2 degrees 70/minute 140/90 105.7 kg Sariah Palacios APRN.[employer] OPERATIONS ENGINEER 01/23/2020 10:46 AM Signed Chief Complaint Patient [...] for invasive ductal carcinoma, nuclear grade 2. ER/FL both >95%. Moderate ER and strong FL. HER2 2+. Non-amplified by FISH. ?? 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 2. Encounter for screening mammogram for high-risk patient - ICD9: V76.11, ICD10: Z12.31 - ?No concerning findings on exam. - ?Arimidex-tolerating fairly well except for hot flashes. - ?B/l?Mammogram due March 2020. Pt. has this done at [facility]. - ?Follow up in 6 months-pending mammogram. - ?Pt. aware to call office with any questions/concerns. ? ? The patient indicates understanding of these iss ues and agrees with the plan. ? ? ? Sariah Palacios, CHANNING.[employer]EL [employer] OPERATIONS ENGINEER ? Referring Provider: SARIAH PALACIOS [[id number]] Allergies As of Date: 01/22/2020 Noted Allergy [...] screening ma mmogram for high-risk patient [Z12.31] Order(s):[facility]U [[id number]] Order #: [id number] FUTURE Follow-up and Disposition History Recorded Prescriptions [...] 03/03/2009 More... Routine general medical examination at [facility]*04/29/2010 0 01/23/2012 Class: Chronic More... Routine [...] Auto Volume 24.7 34.0-46.0 % Low 018 [facility] Fraction (Bld) ([place]) (90618) Comment: Performed By: #### CBC, ADIF F, ANEU, APTT, PRO, BMP, GFR, PRALB, TRF ####[place] [id number] [address] [place] [address] Hemoglobin mass conc (Bld) 7.9 12.0-16.0 G/dL Low [facility] ([place]) (0000 0) Comment: Performed By: #### CBC, ADIF F, ANEU, APTT, PRO, BMP, GFR, PRALB, TRF ####[place] [address] fes on 2018-11-02 Iron Sat 8 % Normal 11-02-2018 [facility] ([place]) (90579) Comment: Performed By: #### CBC, ADIF F, ANEU, APTT, PRO, BMP, GFR, PRALB, TRF ####[place] [address] TIBC 248 250-500 mcg/dL Low 11-02-2018 [facility] ([place]) (23892) Comment: Performed By: #### CBC, ADIF F, ANEU, APTT, PRO, BMP, GFR, PRALB, TRF ####[place] [address] Iron mass conc 20 37-170 mcg/dL Low 11-02-2018 [facility] ([place]) (11667) Comment: Performed By: #### CBC, ADIF F, ANEU, APTT, PRO, BMP, GFR, PRALB, TRF ####[place] [address] cbc on 2018-10-31 Erythrocyte distribution 15.6 11.5-15.5 % High 10-31 [facility] width Auto Ratio (RBC) ([place]) (11763) Comment: Performed By: #### CBC, ADIF F, ANEU, APTT, PRO, BMP, GFR, PRALB, TRF ####[place] [address] Hematocrit Auto Volume 29.1 34.0-46.0 % Low 018 [facility] Fraction (Bld) ([place]) (91621) Comment: Performed By: #### CBC, ADIF F, ANEU, APTT, PRO, BMP, GFR, PRALB, TRF ####[place] [address] Hemoglobin mass conc (Bld) 9.6 12.0-16.0 G/dL Low [facility] ([place]) (0000 0) Comment: Performed By: #### CBC, ADIF F, ANEU, APTT, PRO, BMP, GFR, PRALB, TRF ####[place] [address] MCH Auto Entitic mass 28.2 27.0-33.0 pg Normal 10-31-20 18 [facility] (RBC) ([place]) (0000 0) Comment: Performed By: #### CBC, ADIF F, ANEU, APTT, PRO, BMP, GFR, PRALB, TRF ####[place] [address] MCHC Auto mass conc 33.0 32.0-36.0 G/dL Normal 10-31-2018 [facility] (RBC) ([place]) (0000 0) Comment: Performed By: #### CBC, ADIF F, ANEU, APTT, PRO, BMP, GFR, PRALB, TRF ####[place] [address] MCV Auto Entitic volume 85.6 80.0-99.0 fL Normal 2017 [facility] (RBC) ([place]) (0000 0) Comment: Performed By: #### CBC, ADIF F, ANEU, APTT, PRO, BMP, GFR, PRALB, TRF ####[place] [address] Platelet mean volume Auto 8.4 6.6-10.5 fL Normal 10-13 [facility] Entitic volume (Bld) ([place]) (98127) Comment: Performed By: #### CBC, ADIF F, ANEU, APTT, PRO, BMP, GFR, PRALB, TRF ####[place] [address] Platelets Auto #/vol 347 150-450 10 3/mcL Normal 8 [facility] (Bld) [facility] ([place]) (18490) Comment: Performed By: #### CBC, ADIF F, ANEU, APTT, PRO, BMP, GFR, PRALB, TRF ####[address] [address] RBC Auto #/vol ([facility]) 3.40 4.10-5.30 10 6/mcL Low 8 [facility] ([place]) (0000 0) Comment: Performed By: #### CBC, ADIF F, ANEU, APTT, PRO, BMP, GFR, PRALB, TRF ####[address] [address] WBC Auto #/vol 7.10 4.50-10.80 10 3/mcL Normal 10-31-2018 [facility] ([facility] ([place]) (61366) Comment: Performed By: #### CBC, ADIF F, ANEU, APTT, PRO, BMP, GFR, PRALB, TRF ####[address] [address] bmp on 2018-10-31 Calcium mass conc 7.7 8.4-10.1 mg/dL Low 10-31-2018 [facility] ([place]) (16936) Comment: Performed By: #### CBC, ADIF F, ANEU, APTT, PRO, BMP, GFR, PRALB, TRF ####[place] [address] Chloride molar conc 98 98-110 mEq/L Normal 10-31-2018 [facility] ([place]) (45436) Comment: Performed By: #### CBC, ADIF F, ANEU, APTT, PRO, BMP, GFR, PRALB, TRF ####[address] [address] CO2 molar conc 30 22-32 mEq/L Normal 10-31-2018 [facility] ([place]) (86190) Comment: Performed By: #### CBC, ADIF F, ANEU, APTT, PRO, BMP, GFR, PRALB, TRF ####[place] [address] Creatinine mass conc 0.66 0.50-1.20 mg/dL Normal 8 [facility] ([place]) (0000 0) Comment: Performed By: #### CBC, ADIF F, ANEU, APTT, PRO, BMP, GFR, PRALB, TRF ####[address] [address] Electrolyte Balance 8.0 4.0-15.0 mEq/L Normal 10-31-2018 [facility] ([place]) (0000 0) Comment: Performed By: #### CBC, ADIF F, ANEU, APTT, PRO, BMP, GFR, PRALB, TRF ####[address] [address] Glucose mass conc 111 82-115 mg/dL Normal 10-31-2018 [facility] ([place]) (97800) Comment: Performed By: #### CBC, ADIF F, ANEU, APTT, PRO, BMP, GFR, PRALB, TRF ####[address] [address] Potassium molar conc 4.4 3.5-5.0 mEq/L Normal 8 [facility] ([place]) (0000 0) Comment: Performed By: #### CBC, ADIF F, ANEU, APTT, PRO, BMP, GFR, PRALB, TRF ####[address] [address] Sodium molar conc 136 136-145 mEq/L Normal 10-31-2018 [facility] ([place]) (33305) Comment: Performed By: #### CBC, ADIF F, ANEU, APTT, PRO, BMP, GFR, PRALB, TRF ####[address] [address] Urea nitrogen mass conc 14.0 8.0-22.0 mg/dL Normal 2017 [facility] ([place]) (23865) Comment: Performed By: #### CBC, ADIF F, ANEU, APTT, PRO, BMP, GFR, PRALB, TRF ####[place] [id number] Urea nitrogen/Creatinine 21.2 10.0-22.0 ratio Normal 10-31 [facility] ([place]) (25434) Comment: Performed By: #### CBC, ADIF F, ANEU, APTT, PRO, BMP, GFR, PRALB, TRF ####[place] [address] [place] [address] .neuabs on Neutrophil, Absolute 5.00 2.25-8.10 10 3/mcL Normal 8 [facility] ([place]) (71717) Comment: Performed By: #### CBC, ADIF F, ANEU, APTT, PRO, BMP, GFR, PRALB, TRF ####[place] [address] [place] [address] .gfr on 2018-10-31 GFR Non- >60 Normal 10-31 [facility] ([place]) (95649) Comment: Result Comment: GFR Populati on mean [...] ANEU, APTT, PRO, BMP, GFR, PRALB, TRF ####[place] [address] [place] [address] GFR >60 Normal 8 [facility] ([place]) (52234) Comment: Result Comment: GFR Populati on mean [...] ANEU, APTT, PRO, BMP, GFR, PRALB, TRF ####[address] [address] .auto diff on 10-31 Ammonia mass conc 0.70 0.09-1.40 10 3/mcL Normal 10-31-2018 [facility]) (03225) Comment: Performed By: #### CBC, ADIF F, ANEU, APTT, PRO, BMP, GFR, PRALB, TRF ####[place] [address] Basophils Auto #/vol 0.10 0.00-0.27 10 3/mcL Normal 8 [facility]) (35892) Comment: Performed By: #### CBC, ADIF F, ANEU, APTT, PRO, BMP, GFR, PRALB, TRF ####[address] [address] Basophils/100 WBC Auto ([facility]) 0.9 0.0-2.5 % Normal 1 01-01-2018 [facility] ([place]) (0000 0) Comment: Performed By: #### CBC, ADIF F, ANEU, APTT, PRO, BMP, GFR, PRALB, TRF ####[address] [address] Eosinophils Auto #/vol 0.40 0.00-0.65 10 3/mcL Normal 018 [facility]) (42463) Comment: Performed By: #### CBC, ADIF F, ANEU, APTT, PRO, BMP, GFR, PRALB, TRF ####[address] [address] Eosinophils/100 WBC Auto 4.9 0.0-6.0 % Normal 10-31 [facility] ([place]) (75170) Comment: Performed By: #### CBC, ADIF F, ANEU, APTT, PRO, BMP, GFR, PRALB, TRF ####[address] [address] Lymphocytes Auto #/vol 1.00 0.90-4.32 10 3/mcL Normal 018 [facility] ([place]) ([id number]) Comment: Performed By: #### CBC, ADIF F, ANEU, APTT, PRO, BMP, GFR, PRALB, TRF ####[address] [address] Lymphocytes/100 WBC Auto 14.7 20.0-40.0 % Low 10-31 [facility] ([place]) (52984) Comment: Performed By: #### CBC, ADIF F, ANEU, APTT, PRO, BMP, GFR, PRALB, TRF ####[address] [address] Monocytes/100 WBC Auto ([facility]) 9.8 2.0-13.0 % Normal 1 01-01-2018 [facility] ([place]) (00302) Comment: Performed By: #### CBC, ADIF F, ANEU, APTT, PRO, BMP, GFR, PRALB, TRF ####[address] [address] Neutrophils/100 WBC Auto 69.7 50.0-75.0 % Normal 10-31 [facility] ([place]) (50987) Comment: Performed By: #### CBC, ADIF F, ANEU, APTT, PRO, BMP, GFR, PRALB, TRF ####[address] [address] hh on 2018-10-30 Hematocrit Auto Volume 23.6 34.0-46.0 % Low 018 [facility] Fraction (Bld) ([place]) (18616) Comment: Performed By: #### CBC, ADIF F, ANEU, APTT, PRO, BMP, GFR, PRALB, TRF ####[address] [address] Hemoglobin mass conc (Bld) 7.7 12.0-16.0 G/dL Low [facility] ([place]) (0000 0) Comment: Performed By: #### CBC, ADIF F, ANEU, APTT, PRO, BMP, GFR, PRALB, TRF ####[address] [address] pralb on 2018-10-29 Prealbumin mass conc 7.7 18.0-38.0 mg/dL Low 8 [facility] ([place]) (0000 0) Comment: Performed By: #### CBC, ADIF F, ANEU, APTT, PRO, BMP, GFR, PRALB, TRF ####[place] [address] cbc on 2018-10-29 Erythrocyte distribution 15.3 11.5-15.5 % Normal 10-29 [facility] Auto Ratio (RBC) [facility] ([place]) (35702) Comment: Performed By: #### CBC, ADIF F, ANEU, APTT, PRO, BMP, GFR, PRALB, TRF ####[place] [address] Hematocrit Auto Volume 25.6 34.0-46.0 % Low 018 [facility] Fraction (Bld) ([place]) (29250) Comment: Performed By: #### CBC, ADIF F, ANEU, APTT, PRO, BMP, GFR, PRALB, TRF ####[address] [address] Hemoglobin mass conc (Bld) 8.4 12.0-16.0 G/dL Low [facility] ([place]) (0000 0) Comment: Performed By: #### CBC, ADIF F, ANEU, APTT, PRO, BMP, GFR, PRALB, TRF ####[address] [address] MCH Auto Entitic mass 28.3 27.0-33.0 pg Normal 10-29-20 18 [facility] (RBC) ([place]) (0000 0) Comment: Performed By: #### CBC, ADIF F, ANEU, APTT, PRO, BMP, GFR, PRALB, TRF ####[place] [address] MCHC Auto mass conc 32.9 32.0-36.0 G/dL Normal 10-29-2018 [facility] (RBC) ([place]) (0000 0) Comment: Performed By: #### CBC, ADIF F, ANEU, APTT, PRO, BMP, GFR, PRALB, TRF ####[place] [address] MCV Auto Entitic volume 86.1 80.0-99.0 fL Normal 2017 [facility] ([place]BC) ([place]) (0000 0) Comment: Performed By: #### CBC, ADIF F, ANEU, APTT, PRO, BMP, GFR, PRALB, TRF ####[place] [address] Platelet mean volume Auto 8.3 6.6-10.5 fL Normal 10-13 [facility] Entitic volume (Bld) ([place]) (56082) Comment: Performed By: #### CBC, ADIF F, ANEU, APTT, PRO, BMP, GFR, PRALB, TRF ####[place] [address] Platelets Auto #/vol 200 150-450 10 3/mcL Normal 8 [facility] (d) [facility] ([place]) (63586) Comment: Performed By: #### CBC, ADIF F, ANEU, APTT, PRO, BMP, GFR, PRALB, TRF ####[place] [address] RBC Auto #/vol (Bld) 2.98 4.10-5.30 10 6/mcL Low 8 [facility] ([place]) (0000 0) Comment: Performed By: #### CBC, ADIF F, ANEU, APTT, PRO, BMP, GFR, PRALB, TRF ####[address] [address] WBC Auto #/vol 5.80 4.50-10.80 10 3/mcL Normal 10-29-2018 [facility] ([facility]) [facility] ([place] (30920) Comment: Performed By: #### CBC, ADIF F, ANEU, APTT, PRO, BMP, GFR, PRALB, TRF ####[address] [address] bmp on 2018-10-29 Creatinine mass conc 0.66 0.50-1.20 mg/dL Normal 8 [facility] ([place]) (0000 0) Comment: Performed By: #### CBC, ADIF F, ANEU, APTT, PRO, BMP, GFR, PRALB, TRF ####[place] [address] Urea nitrogen/Creatinine mass 22.7 10.0-22.0 ratio High 10-29-2018 [facility] ([place]) ([id number]) Comment: Performed By: #### CBC, ADIF F, ANEU, APTT, PRO, BMP, GFR, PRALB, TRF ####[address] [address] Calcium mass conc 7.3 8.4-10.1 mg/dL Low 10-29-2018 [facility] ([place]) (36825) Comment: Performed By: #### CBC, ADIF F, ANEU, APTT, PRO, BMP, GFR, PRALB, TRF ####[address] [address] Chloride molar conc 100 98-110 mEq/L Normal 10-29-2018 [facility] ([place]) (25936) Comment: Performed By: #### CBC, ADIF F, ANEU, APTT, PRO, BMP, GFR, PRALB, TRF ####[place] [address] CO2 molar conc 30 22-32 mEq/L Normal 10-29-2018 [facility] ([place]) (60477) Comment: Performed By: #### CBC, ADIF F, ANEU, APTT, PRO, BMP, GFR, PRALB, TRF ####[place] [address] Electrolyte Balance 8.0 4.0-15.0 mEq/L Normal 10-29-2018 [facility]) (0000 0) Comment: Performed By: #### CBC, ADIF F, ANEU, APTT, PRO, BMP, GFR, PRALB, TRF ####[place] [address] Glucose mass conc 105 82-115 mg/dL Normal 10-29-2018 [facility] ([place] (83552) Comment: Performed By: #### CBC, ADIF F, ANEU, APTT, PRO, BMP, GFR, PRALB, TRF ####[place] [address] Potassium molar conc 4.6 3.5-5.0 mEq/L Normal 8 [facility] ([place]) (0000 0) Comment: Performed By: #### CBC, ADIF F, ANEU, APTT, PRO, BMP, GFR, PRALB, TRF ####[place] [address] Sodium molar conc 138 136-145 mEq/L Normal 10-29-2018 [facility] ([place]) (46087) Comment: Performed By: #### CBC, ADIF F, ANEU, APTT, PRO, BMP, GFR, PRALB, TRF ####[address] [address] Urea nitrogen mass conc 15.0 8.0-22.0 mg/dL Normal 2017 [facility] ([place] (33203) Comment: Performed By: #### CBC, ADIF F, ANEU, APTT, PRO, BMP, GFR, PRALB, TRF ####[address] [address] .neuabs on Neutrophil, Absolute 3.60 2.25-8.10 10 3/mcL Normal 8 [facility] ([place]) (44209) Comment: Performed By: #### CBC, ADIF F, ANEU, APTT, PRO, BMP, GFR, PRALB, TRF ####[place] [id number] .gfr on 2018-10-29 GFR >60 Normal 8 [facility] ([place]) (42650) Comment: Result Comment: GFR Populati on mean [...] ANEU, APTT, PRO, BMP, GFR, PRALB, TRF ####[address] [address] GFR Non- >60 Normal 10-29 -2017 [facility] ([place]) (19618) Comment: Result Comment: GFR Populati on mean [...] ANEU, APTT, PRO, BMP, GFR, PRALB, TRF ####[address] [address] .auto diff on 10-29 Ammonia mass conc 0.70 0.09-1.40 10 3/mcL Normal 10-29-2018 [facility]) (83761) Comment: Performed By: #### CBC, ADIF F, ANEU, APTT, PRO, BMP, GFR, PRALB, TRF ####[address] [address] Basophils Auto #/vol 0.00 0.00-0.27 10 3/mcL Normal 8 [facility]) (56434) Comment: Performed By: #### CBC, ADIF F, ANEU, APTT, PRO, BMP, GFR, PRALB, TRF ####[address] [address] Basophils/100 WBC Auto (Bld) 0.8 0.0-2.5 % Normal 1 12-30-2017 [facility] ([place]) (0000 0) Comment: Performed By: #### CBC, ADIF F, ANEU, APTT, PRO, BMP, GFR, PRALB, TRF ####[address] [address] Eosinophils Auto #/vol 0.40 0.00-0.65 10 3/mcL Normal 018 [facility]) (37562) Comment: Performed By: #### CBC, ADIF F, ANEU, APTT, PRO, BMP, GFR, PRALB, TRF ####[address] [address] Eosinophils/100 WBC Auto (Bld) 6.4 0.0-6.0 % High 10-29-2018 [facility] ([place]) (0000 0) Comment: Performed By: #### CBC, ADIF F, ANEU, APTT, PRO, BMP, GFR, PRALB, TRF ####[address] [address] Lymphocytes Auto #/vol 1.10 0.90-4.32 10 3/mcL Normal [address] [place] [address]) (20657) Comment: Performed By: #### CBC, ADIF F, ANEU, APTT, PRO, BMP, GFR, PRALB, TRF ####[address] [address] Lymphocytes/100 WBC Auto 18.8 20.0-40.0 % Low 10-29 [facility]) (52445) Comment: Performed By: #### CBC, ADIF F, ANEU, APTT, PRO, BMP, GFR, PRALB, TRF ####[address] [address] Monocytes/100 WBC Auto 11.7 2.0-13.0 % Normal [address] [place] [address]) (46063) Comment: Performed By: #### CBC, ADIF F, ANEU, APTT, PRO, BMP, GFR, PRALB, TRF ####[address] [address] Neutrophils/100 WBC Auto 62.3 50.0-75.0 % Normal 10-29 [facility]) (92211) Comment: Performed By: #### CBC, ADIF F, ANEU, APTT, PRO, BMP, GFR, PRALB, TRF ####[address] [address] cmp on 2018-10-27 Albumin/Globulin mass ratio 0.7 0.9-1.6 ratio Low [facility] ([place]) (16909) Comment: Performed By: #### CBC, ADIF F, ANEU, APTT, PRO, BMP, GFR, PRALB, TRF ####[address] [address] ALP enzyme act/vol 63 38-126 U/L Normal 10-27-2018 [facility] ([place]) (47988) Comment: Performed By: #### CBC, ADIF F, ANEU, APTT, PRO, BMP, GFR, PRALB, TRF ####[address] [address] Bili Total 0.5 0.2-1.2 mg/dL Normal 10-27-2018 [facility] ([place]) (57556) Comment: Performed By: #### CBC, ADIF F, ANEU, APTT, PRO, BMP, GFR, PRALB, TRF ####[address] [address] Creatinine mass conc 0.90 0.50-1.20 mg/dL Normal 8 [facility] ([place]) (0000 0) Comment: Performed By: #### CBC, ADIF F, ANEU, APTT, PRO, BMP, GFR, PRALB, TRF ####[place] [address] Globulin Calculated mass 3.1 1.5-3.8 G/dL Normal 10-27 [facility] conc (S) ([place]) (0000 0) Comment: Performed By: #### CBC, ADIF F, ANEU, APTT, PRO, BMP, GFR, PRALB, TRF ####[address] [address] Protein mass conc 5.4 6.0-8.5 G/dL Low 10-27-2018 [facility] ([place]) (48684) Comment: Performed By: #### CBC, ADIF F, ANEU, APTT, PRO, BMP, GFR, PRALB, TRF ####[address] [address] Urea nitrogen/Creatinine mass 25.6 10.0-22.0 ratio High 10-27-2018 [facility] ([place]) (80663) Comment: Performed By: #### CBC, ADIF F, ANEU, APTT, PRO, BMP, GFR, PRALB, TRF ####[address] [address] Albumin mass conc 2.3 3.2-4.8 G/dL Low 10-27-2018 [facility] ([place]) (97309) Comment: Performed By: #### CBC, ADIF F, ANEU, APTT, PRO, BMP, GFR, PRALB, TRF ####[place] [address] ALT enzyme act/vol 13 10-49 U/L Normal 10-27-2018 [facility] ([place]) (73587) Comment: Performed By: #### CBC, ADIF F, ANEU, APTT, PRO, BMP, GFR, PRALB, TRF ####[place] [address] AST enzyme act/vol 26 8-34 U/L Normal 10-27-2018 [facility] ([place]) (44268) Comment: Performed By: #### CBC, ADIF F, ANEU, APTT, PRO, BMP, GFR, PRALB, TRF ####[place] [address] Calcium mass conc 7.8 8.4-10.1 mg/dL Low 10-27-2018 [facility] ([place]) (86042) Comment: Performed By: #### CBC, ADIF F, ANEU, APTT, PRO, BMP, GFR, PRALB, TRF ####[place] [address] Chloride molar conc 103 98-110 mEq/L Normal 10-27-2018 [facility] ([place]) (93700) Comment: Performed By: #### CBC, ADIF F, ANEU, APTT, PRO, BMP, GFR, PRALB, TRF ####[address] [address] CO2 molar conc 29 22-32 mEq/L Normal 10-27-2018 [facility] ([place]) (00415) Comment: Performed By: #### CBC, ADIF F, ANEU, APTT, PRO, BMP, GFR, PRALB, TRF ####[place] [address] Electrolyte Balance 6.0 4.0-15.0 mEq/L Normal 10-27-2018 [facility] ([place]) (0000 0) Comment: Performed By: #### CBC, ADIF F, ANEU, APTT, PRO, BMP, GFR, PRALB, TRF ####[place] [address] Glucose mass conc 101 82-115 mg/dL Normal 10-27-2018 [facility] ([place]) (24360) Comment: Performed By: #### CBC, ADIF F, ANEU, APTT, PRO, BMP, GFR, PRALB, TRF ####[place] [address] Potassium molar conc 4.3 3.5-5.0 mEq/L Normal 8 [facility] ([place]) (0000 0) Comment: Performed By: #### CBC, ADIF F, ANEU, APTT, PRO, BMP, GFR, PRALB, TRF ####[place] [address] Sodium molar conc 138 136-145 mEq/L Normal 10-27-2018 [facility] ([place]) (61096) Comment: Performed By: #### CBC, ADIF F, ANEU, APTT, PRO, BMP, GFR, PRALB, TRF ####[place] [address] Urea nitrogen mass conc 23.0 8.0-22.0 mg/dL High 2017 [facility] ([place]) (0000 0) Comment: Performed By: #### CBC, ADIF F, ANEU, APTT, PRO, BMP, GFR, PRALB, TRF ####[address] [address] cbc on 2018-10-27 Erythrocyte distribution 15.6 11.5-15.5 % High 10-27 [facility] width Auto Ratio (RBC) ([place]) (29210) Comment: Performed By: #### CBC, ADIF F, ANEU, APTT, PRO, BMP, GFR, PRALB, TRF ####[place] [address] Hematocrit Auto Volume 28.7 34.0-46.0 % Low 018 [facility] Fraction (Bld) ([place]) (42270) Comment: Performed By: #### CBC, ADIF F, ANEU, APTT, PRO, BMP, GFR, PRALB, TRF ####[place] [address] Hemoglobin mass conc (Bld) 9.3 12.0-16.0 G/dL Low [facility] ([place]) (0000 0) Comment: Performed By: #### CBC, ADIF F, ANEU, APTT, PRO, BMP, GFR, PRALB, TRF ####[place] [address] MCH Auto Entitic mass 28.3 27.0-33.0 pg Normal 10-27-20 18 [facility] (RBC) ([place]) (0000 0) Comment: Performed By: #### CBC, ADIF F, ANEU, APTT, PRO, BMP, GFR, PRALB, TRF ####[place] [address] MCHC Auto mass conc 32.6 32.0-36.0 G/dL Normal 10-27-2018 [facility] (RBC) ([place]) (0000 0) Comment: Performed By: #### CBC, ADIF F, ANEU, APTT, PRO, BMP, GFR, PRALB, TRF ####[place] [address] MCV Auto Entitic volume 86.7 80.0-99.0 fL Normal 2017 [facility] ([place]BC) ([place]) (0000 0) Comment: Performed By: #### CBC, ADIF F, ANEU, APTT, PRO, BMP, GFR, PRALB, TRF ####[place] [address] Platelet mean volume Auto 8.5 6.6-10.5 fL Normal 10-13 [facility] Entitic volume (Bld) ([place]) (17030) Comment: Performed By: #### CBC, ADIF F, ANEU, APTT, PRO, BMP, GFR, PRALB, TRF ####[address] [address] Platelets Auto #/vol 186 150-450 10 3/mcL Normal 8 [facility]) (22785) Comment: Performed By: #### CBC, ADIF F, ANEU, APTT, PRO, BMP, GFR, PRALB, TRF ####[place] [address] RBC Auto #/vol (Bld) 3.30 4.10-5.30 10 6/mcL Low 8 [facility] ([place]) (0000 0) Comment: Performed By: #### CBC, ADIF F, ANEU, APTT, PRO, BMP, GFR, PRALB, TRF ####[place] [address] WBC Auto #/vol 10.60 4.50-10.80 10 3/mcL Normal 10-27-2018 [facility]) (65593) Comment: Performed By: #### CBC, ADIF F, ANEU, APTT, PRO, BMP, GFR, PRALB, TRF ####[place] [address] .neuabs on Neutrophil, Absolute 7.90 2.25-8.10 10 3/mcL Normal 8 [facility] ([place]) (49590) Comment: Performed By: #### CBC, ADIF F, ANEU, APTT, PRO, BMP, GFR, PRALB, TRF ####[address] [address] .gfr on 2018-10-27 GFR >60 Normal 8 [facility] ([place]) (73151) Comment: Result Comment: GFR Populati on mean [...] ANEU, APTT, PRO, BMP, GFR, PRALB, TRF ####[address] [address] GFR Non- >60 Normal 10-27 [facility] ([place]) (34172) Comment: Result Comment: GFR Populati on mean [...] ANEU, APTT, PRO, BMP, GFR, PRALB, TRF ####[address] [address] .auto diff on 10-27 Ammonia mass conc 0.60 0.09-1.40 10 3/mcL Normal 10-27-2018 [facility] (P) [facility] ([place]) (09148) Comment: Performed By: #### CBC, ADIF F, ANEU, APTT, PRO, BMP, GFR, PRALB, TRF ####[place] [address] Basophils Auto #/vol 0.20 0.00-0.27 10 3/mcL Normal 8 [facility] (d) [facility] ([place]) (31584) Comment: Performed By: #### CBC, ADIF F, ANEU, APTT, PRO, BMP, GFR, PRALB, TRF ####[address] [address] Basophils/100 WBC Auto (d) 1.5 0.0-2.5 % Normal 1 12-28-2017 [facility]) (0000 0) Comment: Performed By: #### CBC, ADIF F, ANEU, APTT, PRO, BMP, GFR, PRALB, TRF ####[address] [address] Eosinophils Auto #/vol 0.30 0.00-0.65 10 3/mcL Normal [address] [place] [address]) (01255) Comment: Performed By: #### CBC, ADIF F, ANEU, APTT, PRO, BMP, GFR, PRALB, TRF ####[address] [address] Eosinophils/100 WBC Auto 2.4 0.0-6.0 % Normal 10-27 [facility]) (73924) Comment: Performed By: #### CBC, ADIF F, ANEU, APTT, PRO, BMP, GFR, PRALB, TRF ####[address] [address] Lymphocytes Auto #/vol 1.60 0.90-4.32 10 3/mcL Normal [address] [place] [address]) (41645) Comment: Performed By: #### CBC, ADIF F, ANEU, APTT, PRO, BMP, GFR, PRALB, TRF ####[address] [address] Lymphocytes/100 WBC Auto 14.9 20.0-40.0 % Low 10-27 [facility]) (70720) Comment: Performed By: #### CBC, ADIF F, ANEU, APTT, PRO, BMP, GFR, PRALB, TRF ####[address] [address] Monocytes/100 WBC Auto (Bld) 6.0 2.0-13.0 % Normal 1 12-28-2017 [facility] ([place]) (41521) Comment: Performed By: #### CBC, ADIF F, ANEU, APTT, PRO, BMP, GFR, PRALB, TRF ####[address] [address] Neutrophils/100 WBC Auto 75.2 50.0-75.0 % High 10-27 [facility] (Bld) [facility] ([place]) (37401) Comment: Performed By: #### CBC, ADIF F, ANEU, APTT, PRO, BMP, GFR, PRALB, TRF ####[address] [address] cbc on 2018-10-26 Erythrocyte distribution 15.8 11.5-15.5 % High 10-26 [facility] width Auto Ratio (RBC) ([place]) (39375) Comment: Performed By: #### CBC, ADIF F, ANEU, APTT, PRO, BMP, GFR, PRALB, TRF ####[address] [address] Hematocrit Auto Volume 26.4 34.0-46.0 % Low 018 [facility] Fraction (Bld) ([place]) (86271) Comment: Performed By: #### CBC, ADIF F, ANEU, APTT, PRO, BMP, GFR, PRALB, TRF ####[address] [address] Hemoglobin mass conc (Bld) 8.7 12.0-16.0 G/dL Low [facility] ([place]) (0000 0) Comment: Performed By: #### CBC, ADIF F, ANEU, APTT, PRO, BMP, GFR, PRALB, TRF ####[address] [address] MCH Auto Entitic mass 28.3 27.0-33.0 pg Normal 10-26-20 18 [facility] (RBC) ([place]) (0000 0) Comment: Performed By: #### CBC, ADIF F, ANEU, APTT, PRO, BMP, GFR, PRALB, TRF ####[place] [address] MCHC Auto mass conc 33.0 32.0-36.0 G/dL Normal 10-26-2018 [facility] (RBC) ([place]) (0000 0) Comment: Performed By: #### CBC, ADIF F, ANEU, APTT, PRO, BMP, GFR, PRALB, TRF ####[place] [address] MCV Auto Entitic volume 85.8 80.0-99.0 fL Normal 2017 [facility] ([place]BC) ([place]) (0000 0) Comment: Performed By: #### CBC, ADIF F, ANEU, APTT, PRO, BMP, GFR, PRALB, TRF ####[place] [address] Platelet mean volume Auto 7.7 6.6-10.5 fL Normal 10-13 [facility] Entitic volume (Bld) ([place]) (72219) Comment: Performed By: #### CBC, ADIF F, ANEU, APTT, PRO, BMP, GFR, PRALB, TRF ####[place] [address] Platelets Auto #/vol 148 150-450 10 3/mcL Low 8 [facility] (Bld) ([place]) (0000 0) Comment: Performed By: #### CBC, ADIF F, ANEU, APTT, PRO, BMP, GFR, PRALB, TRF ####[place] [address] RBC Auto #/vol (Bld) 3.08 4.10-5.30 10 6/mcL Low 8 [facility] ([place]) (0000 0) Comment: Performed By: #### CBC, ADIF F, ANEU, APTT, PRO, BMP, GFR, PRALB, TRF ####[place] [address] WBC Auto #/vol 9.70 4.50-10.80 10 3/mcL Normal 10-26-2018 [facility] (d) [facility] ([place]) (82033) Comment: Performed By: #### CBC, ADIF F, ANEU, APTT, PRO, BMP, GFR, PRALB, TRF ####[address] [address] bmp on 2018-10-26 Creatinine mass conc 0.73 0.50-1.20 mg/dL Normal 8 [facility] ([place]) (0000 0) Comment: Performed By: #### CBC, ADIF F, ANEU, APTT, PRO, BMP, GFR, PRALB, TRF ####[place] [address] Urea nitrogen/Creatinine 19.2 10.0-22.0 ratio Normal 10-26 [facility] ([place]) (96349) Comment: Performed By: #### CBC, ADIF F, ANEU, APTT, PRO, BMP, GFR, PRALB, TRF ####[address] [address] Calcium mass conc 7.8 8.4-10.1 mg/dL Low 10-26-2018 [facility] ([place]) (64939) Comment: Performed By: #### CBC, ADIF F, ANEU, APTT, PRO, BMP, GFR, PRALB, TRF ####[address] [address] Chloride molar conc 104 98-110 mEq/L Normal 10-26-2018 [facility] ([place]) (40768) Comment: Performed By: #### CBC, ADIF F, ANEU, APTT, PRO, BMP, GFR, PRALB, TRF ####[address] [address] CO2 molar conc 29 22-32 mEq/L Normal 10-26-2018 [facility] ([place]) (59920) Comment: Performed By: #### CBC, ADIF F, ANEU, APTT, PRO, BMP, GFR, PRALB, TRF ####[address] [address] Electrolyte Balance 6.0 4.0-15.0 mEq/L Normal 10-26-2018 [facility] ([place]) (0000 0) Comment: Performed By: #### CBC, ADIF F, ANEU, APTT, PRO, BMP, GFR, PRALB, TRF ####[place] [address] Glucose mass conc 97 82-115 mg/dL Normal 10-26-2018 [facility] ([place]) (27019) Comment: Performed By: #### CBC, ADIF F, ANEU, APTT, PRO, BMP, GFR, PRALB, TRF ####[place] [address] Potassium molar conc 3.7 3.5-5.0 mEq/L Normal 8 [facility] ([place]) (0000 0) Comment: Performed By: #### CBC, ADIF F, ANEU, APTT, PRO, BMP, GFR, PRALB, TRF ####[place] [address] Sodium molar conc 139 136-145 mEq/L Normal 10-26-2018 [facility] ([place]) (14023) Comment: Performed By: #### CBC, ADIF F, ANEU, APTT, PRO, BMP, GFR, PRALB, TRF ####[place] [address] Urea nitrogen mass conc 14.0 8.0-22.0 mg/dL Normal 2017 [facility] ([place]) (40044) Comment: Performed By: #### CBC, ADIF F, ANEU, APTT, PRO, BMP, GFR, PRALB, TRF ####[place] [address] .neuabs on Neutrophil, Absolute 7.60 2.25-8.10 10 3/mcL Normal 8 [facility] ([place]) (06892) Comment: Performed By: #### CBC, ADIF F, ANEU, APTT, PRO, BMP, GFR, PRALB, TRF ####[place] [id number] [address] [place] [address] .gfr on 2018-10-26 GFR Non- >60 Normal 10-26 [facility] ([place]) (44385) Comment: Result Comment: GFR Populati on mean [...] ANEU, APTT, PRO, BMP, GFR, PRALB, TRF ####[place] [id number] [address] [place] [address] GFR >60 Normal [facility] ([place]) (58785) Comment: Result Comment: GFR Populati on mean [...] ANEU, APTT, PRO, BMP, GFR, PRALB, TRF ####[place] [id number] [address] [place] [address] .auto diff on 10-26 Ammonia mass conc 0.60 0.09-1.40 10 3/mcL Normal 10-26-2018 [facility] ([facility] ([place]) (74427) Comment: Performed By: #### CBC, ADIF F, ANEU, APTT, PRO, BMP, GFR, PRALB, TRF ####[address] [address] Basophils Auto #/vol 0.00 0.00-0.27 10 3/mcL Normal 8 [facility]) (79600) Comment: Performed By: #### CBC, ADIF F, ANEU, APTT, PRO, BMP, GFR, PRALB, TRF ####[address] [address] Basophils/100 WBC Auto ([facility]) 0.2 0.0-2.5 % Normal 1 12-27-2017 [facility]) (0000 0) Comment: Performed By: #### CBC, ADIF F, ANEU, APTT, PRO, BMP, GFR, PRALB, TRF ####[address] [address] Eosinophils Auto #/vol 0.20 0.00-0.65 10 3/mcL Normal 018 [facility]) ([id number]) Comment: Performed By: #### CBC, ADIF F, ANEU, APTT, PRO, BMP, GFR, PRALB, TRF ####[address] [address] Eosinophils/100 WBC Auto 2.0 0.0-6.0 % Normal 10-26 [facility]) ([id number]) Comment: Performed By: #### CBC, ADIF F, ANEU, APTT, PRO, BMP, GFR, PRALB, TRF ####[address] [address] Lymphocytes Auto #/vol 1.30 0.90-4.32 10 3/mcL Normal 018 [facility]) ([id number]) Comment: Performed By: #### CBC, ADIF F, ANEU, APTT, PRO, BMP, GFR, PRALB, TRF ####[address] [address] Lymphocytes/100 WBC Auto 13.4 20.0-40.0 % Low 10-26 [facility] ([facility]) [facility] ([place]) ([id number]) Comment: Performed By: #### CBC, ADIF F, ANEU, APTT, PRO, BMP, GFR, PRALB, TRF ####[address] [address] Monocytes/100 WBC Auto (Bld) 6.4 2.0-13.0 % Normal 1 12-27-2017 [facility] ([place]) ([id number]) Comment: Performed By: #### CBC, ADIF F, ANEU, APTT, PRO, BMP, GFR, PRALB, TRF ####[address] [address] Neutrophils/100 WBC Auto 78.0 50.0-75.0 % High 10-26 [facility] ([facility]) [facility] ([place]) ([id number]) Comment: Performed By: #### CBC, ADIF F, ANEU, APTT, PRO, BMP, GFR, PRALB, TRF ####[address] [address] hh on 2018-10-25 Hematocrit Auto Volume 25.3 34.0-46.0 % Low 10-25- 018 [facility] (Bld) ([place]) ([id number]) Comment: Performed By: #### CBC, ADIF F, ANEU, APTT, PRO, BMP, GFR, PRALB, TRF ####[address] [address] Hemoglobin mass conc (Bld) 8.4 12.0-16.0 G/dL Low [facility] ([place]) (0000 0) Comment: Performed By: #### CBC, ADIF F, ANEU, APTT, PRO, BMP, GFR, PRALB, TRF ####[address] [address] bmp on 2018-10-25 Creatinine mass conc 0.66 0.50-1.20 mg/dL Normal 8 [facility] ([place]) (0000 0) Comment: Performed By: #### CBC, ADIF F, ANEU, APTT, PRO, BMP, GFR, PRALB, TRF ####[place] [address] Urea nitrogen/Creatinine 18.2 10.0-22.0 ratio Normal 10-25 [facility] ([place]) ([id number]) Comment: Performed By: #### CBC, ADIF F, ANEU, APTT, PRO, BMP, GFR, PRALB, TRF ####[place] [address] Calcium mass conc 7.6 8.4-10.1 mg/dL Low 10-25-2018 [facility] ([place]) ([id number]) Comment: Performed By: #### CBC, ADIF F, ANEU, APTT, PRO, BMP, GFR, PRALB, TRF ####[place] [address] Chloride molar conc 107 98-110 mEq/L Normal 10-25-2018 [facility] ([place]) ([id number]) Comment: Performed By: #### CBC, ADIF F, ANEU, APTT, PRO, BMP, GFR, PRALB, TRF ####[place] [address] CO2 molar conc 28 22-32 mEq/L Normal 10-25-2018 [facility] ([place]) (17335) Comment: Performed By: #### CBC, ADIF F, ANEU, APTT, PRO, BMP, GFR, PRALB, TRF ####[place] [address] Electrolyte Balance 5.0 4.0-15.0 mEq/L Normal 10-25-2018 [facility] ([place]) (0000 0) Comment: Performed By: #### CBC, ADIF F, ANEU, APTT, PRO, BMP, GFR, PRALB, TRF ####[place] [address] Glucose mass conc 118 82-115 mg/dL High 10-25-2018 [facility] ([place]) (17469) Comment: Performed By: #### CBC, ADIF F, ANEU, APTT, PRO, BMP, GFR, PRALB, TRF ####[place] [id number] [place] [address] Potassium molar conc 4.0 3.5-5.0 mEq/L Normal 8 [facility] ([place]) (0000 0) Comment: Performed By: #### CBC, ADIF F, ANEU, APTT, PRO, BMP, GFR, PRALB, TRF ####[place] [id number] [place] [address] Sodium molar conc 140 136-145 mEq/L Normal 10-25-2018 [facility] ([place]) (69629) Comment: Performed By: #### CBC, ADIF F, ANEU, APTT, PRO, BMP, GFR, PRALB, TRF ####[place] [id number] [place] [address] Urea nitrogen mass conc 12.0 8.0-22.0 mg/dL Normal 2017 [facility] ([place]) (22709) Comment: Performed By: #### CBC, ADIF F, ANEU, APTT, PRO, BMP, GFR, PRALB, TRF ####[address] [address] .gfr on 2018-10-25 GFR >60 Normal 8 [facility] ([place]) (54301) Comment: Result Comment: GFR Populati on mean [...] ANEU, APTT, PRO, BMP, GFR, PRALB, TRF ####[place] [id number] [place] [address] GFR Non- >60 Normal 10-25 [facility] ([place]) (97447) Comment: Result Comment: GFR Populati on mean [...] ANEU, APTT, PRO, BMP, GFR, PRALB, TRF ####[place] [id number] [place] [address] xr fluoro 1-2 hrs tech time on 2018-10-24 XR FLUORO 1-2 ORIGINALTechnical Details: Normal 10-24-2018 [facility] TECH TIME Tech Time - 804am-705pm; [facility] ([place]) C-Arm # - 7; Total Dose - (80295) 180.10 mGy; Images - 13; Apparel Fashion Designer - Keny Miller; History - image [id number]; [...] VIEW ORIGINALXR CHEST 1 VIEW Normal 10-24-2018 [facility] CLINICAL STATEMENT: [place] hypoxia. COMPARISON: ([id number]) 10/23/2018 FINDINGS: Endotracheal tube terminates 4.4 cm [...] ABDOMEN AP ORIGINALXR ABDOMEN AP Normal 10-13 [facility] CLINICAL STATEMENT: OG [facility] [place] placement. COMPARISON: ([id number]) 10/23/2018 FINDINGS: The enteric tube terminates near [...] Erythrocyte distribution 15.7 11.5-15.5 % High 10-24 [facility] width Auto Ratio (RBC) ([place]) (71480) Comment: Performed By: #### CBC, ADIF F, ANEU, APTT, PRO, BMP, GFR, PRALB, TRF ####[place] [address] Hematocrit Auto Volume 30.1 34.0-46.0 % Low 018 [facility] Fraction (Bld) ([place]) (60417) Comment: Performed By: #### CBC, ADIF F, ANEU, APTT, PRO, BMP, GFR, PRALB, TRF ####[address] [address] Hemoglobin mass conc 10.1 12.0-16.0 G/dL Low 8 [facility] (Bld) ([place]) (0000 0) Comment: Performed By: #### CBC, ADIF F, ANEU, APTT, PRO, BMP, GFR, PRALB, TRF ####[address] [address] MCH Auto Entitic mass 28.4 27.0-33.0 pg Normal 10-24-20 18 [facility] (RBC) ([place]) (0000 0) Comment: Performed By: #### CBC, ADIF F, ANEU, APTT, PRO, BMP, GFR, PRALB, TRF ####[address] [address] MCHC Auto mass conc 33.4 32.0-36.0 G/dL Normal 10-24-2018 [facility] (RBC) ([place]) (0000 0) Comment: Performed By: #### CBC, ADIF F, ANEU, APTT, PRO, BMP, GFR, PRALB, TRF ####[address] [address] MCV Auto Entitic volume 84.8 80.0-99.0 fL Normal 2017 [facility] (RBC) ([place]) (0000 0) Comment: Performed By: #### CBC, ADIF F, ANEU, APTT, PRO, BMP, GFR, PRALB, TRF ####[address] [address] Platelet mean volume Auto 8.0 6.6-10.5 fL Normal 10-13 [facility] Entitic volume (Bld) ([place]) (73206) Comment: Performed By: #### CBC, ADIF F, ANEU, APTT, PRO, BMP, GFR, PRALB, TRF ####[address] [address] Platelets Auto #/vol 180 150-450 10 3/mcL Normal 8 [facility]) (16283) Comment: Performed By: #### CBC, ADIF F, ANEU, APTT, PRO, BMP, GFR, PRALB, TRF ####[place] [address] RBC Auto #/vol ([facility]) 3.55 4.10-5.30 10 6/mcL Low 8 [facility] ([place]) (0000 0) Comment: Performed By: #### CBC, ADIF F, ANEU, APTT, PRO, BMP, GFR, PRALB, TRF ####[place] [address] WBC Auto #/vol 9.70 4.50-10.80 10 3/mcL Normal 10-24-2018 [facility] ([place]) (94134) Comment: Performed By: #### CBC, ADIF F, ANEU, APTT, PRO, BMP, GFR, PRALB, TRF ####[place] [address] bmp on 2018-10-24 Creatinine mass conc 0.67 0.50-1.20 mg/dL Normal 8 [facility] ([place]) (0000 0) Comment: Performed By: #### CBC, ADIF F, ANEU, APTT, PRO, BMP, GFR, PRALB, TRF ####[place] [address] Urea nitrogen/Creatinine mass 26.9 10.0-22.0 ratio High 10-24-2018 [facility] ([place]) ([id number]) Comment: Performed By: #### CBC, ADIF F, ANEU, APTT, PRO, BMP, GFR, PRALB, TRF ####[place] [address] Calcium mass conc 7.3 8.4-10.1 mg/dL Low 10-24-2018 [facility] ([place]) (40830) Comment: Performed By: #### CBC, ADIF F, ANEU, APTT, PRO, BMP, GFR, PRALB, TRF ####[place] [address] Chloride molar conc 112 98-110 mEq/L High 10-24-2018 [facility] ([place]) (04558) Comment: Performed By: #### CBC, ADIF F, ANEU, APTT, PRO, BMP, GFR, PRALB, TRF ####[place] [address] CO2 molar conc 24 22-32 mEq/L Normal 10-24-2018 [facility] ([place]) (52005) Comment: Performed By: #### CBC, ADIF F, ANEU, APTT, PRO, BMP, GFR, PRALB, TRF ####[place] [address] Electrolyte Balance 3.0 4.0-15.0 mEq/L Low 10-24-2018 [facility] ([place] (79029) Comment: Performed By: #### CBC, ADIF F, ANEU, APTT, PRO, BMP, GFR, PRALB, TRF ####[place] [address] Glucose mass conc 133 82-115 mg/dL High 10-24-2018 [facility] ([place]) (15651) Comment: Performed By: #### CBC, ADIF F, ANEU, APTT, PRO, BMP, GFR, PRALB, TRF ####[place] [address] Potassium molar conc 4.3 3.5-5.0 mEq/L Normal 8 [facility] ([place]) (0000 0) Comment: Performed By: #### CBC, ADIF F, ANEU, APTT, PRO, BMP, GFR, PRALB, TRF ####[place] [address] Sodium molar conc 139 136-145 mEq/L Normal 10-24-2018 [facility] ([place]) (62762) Comment: Performed By: #### CBC, ADIF F, ANEU, APTT, PRO, BMP, GFR, PRALB, TRF ####[place] [id number] [place] [address] Urea nitrogen mass conc 18.0 8.0-22.0 mg/dL Normal 2017 [facility] ([place] (47302) Comment: Performed By: #### CBC, ADIF F, ANEU, APTT, PRO, BMP, GFR, PRALB, TRF ####[address] [address] .neuabs on Neutrophil, Absolute 8.10 2.25-8.10 10 3/mcL Normal 8 [facility] ([place]) (58250) Comment: Performed By: #### CBC, ADIF F, ANEU, APTT, PRO, BMP, GFR, PRALB, TRF ####[address] [address] .gfr on 2018-10-24 GFR Non- >60 Normal 10-24 [facility] ([place]) (00260) Comment: Result Comment: GFR Populati on mean [...] ANEU, APTT, PRO, BMP, GFR, PRALB, TRF ####[address] [address] GFR >60 Normal 8 [facility] ([place]) (05210) Comment: Result Comment: GFR Populati on mean [...] ANEU, APTT, PRO, BMP, GFR, PRALB, TRF ####[address] [address] .auto diff on 10-24 Ammonia mass conc 0.70 0.09-1.40 10 3/mcL Normal 10-24-2018 [facility] () [facility] ([place]) (60490) Comment: Performed By: #### CBC, ADIF F, ANEU, APTT, PRO, BMP, GFR, PRALB, TRF ####[address] [address] Basophils Auto #/vol 0.00 0.00-0.27 10 3/mcL Normal 8 [facility] ([facility]) [facility] ([place]) (14323) Comment: Performed By: #### CBC, ADIF F, ANEU, APTT, PRO, BMP, GFR, PRALB, TRF ####[address] [address] Basophils/100 WBC Auto (d) 0.3 0.0-2.5 % Normal 1 12-25-2017 [facility] ([place]) (0000 0) Comment: Performed By: #### CBC, ADIF F, ANEU, APTT, PRO, BMP, GFR, PRALB, TRF ####[address] [address] Eosinophils Auto #/vol 0.00 0.00-0.65 10 3/mcL Normal [address] [place] [address]) (17428) Comment: Performed By: #### CBC, ADIF F, ANEU, APTT, PRO, BMP, GFR, PRALB, TRF ####[address] [address] Eosinophils/100 WBC Auto 0.0 0.0-6.0 % Normal 10-24 [facility]) (91236) Comment: Performed By: #### CBC, ADIF F, ANEU, APTT, PRO, BMP, GFR, PRALB, TRF ####[address] [address] Lymphocytes Auto #/vol 0.80 0.90-4.32 10 3/mcL Low [address] [place] [address]) (91342) Comment: Performed By: #### CBC, ADIF F, ANEU, APTT, PRO, BMP, GFR, PRALB, TRF ####[address] [address] Lymphocytes/100 WBC Auto (Bld) 8.2 20.0-40.0 % Low 10-24-2018 [facility]) (35754) Comment: Performed By: #### CBC, ADIF F, ANEU, APTT, PRO, BMP, GFR, PRALB, TRF ####[address] [address] Monocytes/100 WBC Auto (Bld) 7.5 2.0-13.0 % Normal 1 12-25-2017 [facility] ([place]) (06186) Comment: Performed By: #### CBC, ADIF F, ANEU, APTT, PRO, BMP, GFR, PRALB, TRF ####[address] [address] Neutrophils/100 WBC Auto 84.0 50.0-75.0 % High 10-24 [facility]) (12986) Comment: Performed By: #### CBC, ADIF F, ANEU, APTT, PRO, BMP, GFR, PRALB, TRF ####[facility] [place] [address] xr chest 1 view on 2018-10-23 XR CHEST 1 VIEW ORIGINALXR CHEST 1 VIEW Normal 10-23-2018 [facility] PORTABLE AP UPRIGHT DATE [facility] ([place]) AND TIME: 10/23/2018 8:58 (17555) PM CLINICAL STATEMENT: ETT placement COMPARISON: None [...] 30-10-11 XR ABDOMEN AP ORIGINALPortable supine Normal [facility] abdomen 10/23/2018 2058 [facility] ([place] hours CLINICAL STATEMENT: (00447) Tube placement Enteric tube is seen within [...] Antibody Screen Tango Negative ABSC Normal 10-13 [facility] ([place]) (0000 0) Comment: Performed By: #### CBC, ADIF F, ANEU, APTT, PRO, BMP, GFR, PRALB, TRF ####[address] [address] tabo on 2018-10-23 ABO/Rh Interp AB POS Invalid Interpretation Cod e 10-23-2018 [facility] ([place]) (86094) Comment: Performed By: #### ABORH, AN TIS ####[place] [address] rbc (product) on 30-10-11 RBC Auto #/vol RBC Ready for Pickup Normal 10-13 [facility] ([facility]) [facility] ([place]) (69641) Comment: Performed By: #### CBC, ADIF F, ANEU, APTT, PRO, BMP, GFR, PRALB, TRF ####[place] [address] naor on 2018-10-23 Sodium molar conc 137 136-145 mEq/L Normal 10-23-2018 [facility] ([place] (57012) Comment: Performed By: #### CBC, ADIF F, ANEU, APTT, PRO, BMP, GFR, PRALB, TRF ####[place] [address] Sodium molar conc 138 136-145 mEq/L Normal 10-23-2018 [facility] ([place] (18314) Comment: Performed By: #### CBC, ADIF F, ANEU, APTT, PRO, BMP, GFR, PRALB, TRF ####[place] [address] Sodium molar conc 136 136-145 mEq/L Normal 10-23-2018 [facility] ([place] (39172) Comment: Performed By: #### CBC, ADIF F, ANEU, APTT, PRO, BMP, GFR, PRALB, TRF ####[place] [address] Sodium molar conc 138 136-145 mEq/L Normal 10-23-2018 [facility] ([place] (54081) Comment: Performed By: #### CBC, ADIF F, ANEU, APTT, PRO, BMP, GFR, PRALB, TRF ####[address] [address] mgor on 2018-10-23 Magnesium mass conc 2.1 1.6-2.4 mg/dL Normal 10-23-2018 [facility] ([place]) (0000 0) Comment: Performed By: #### CBC, ADIF F, ANEU, APTT, PRO, BMP, GFR, PRALB, TRF ####[place] [address] Magnesium mass conc 2.2 1.6-2.4 mg/dL Normal 10-23-2018 [facility] ([place]) (0000 0) Comment: Performed By: #### CBC, ADIF F, ANEU, APTT, PRO, BMP, GFR, PRALB, TRF ####[address] [address] Magnesium mass conc 1.8 1.6-2.4 mg/dL Normal 10-23-2018 [facility] ([place] (0000 0) Comment: Performed By: #### CBC, ADIF F, ANEU, APTT, PRO, BMP, GFR, PRALB, TRF ####[address] [address] kor on 2018-10-23 Potassium molar conc 4.3 3.5-5.0 mEq/L Normal 8 [facility] ([place] (0000 0) Comment: Performed By: #### CBC, ADIF F, ANEU, APTT, PRO, BMP, GFR, PRALB, TRF ####[place] [address] Potassium molar conc 3.4 3.5-5.0 mEq/L Low 8 [facility] ([place] (46280) Comment: Performed By: #### CBC, ADIF F, ANEU, APTT, PRO, BMP, GFR, PRALB, TRF ####[place] [address] Potassium molar conc 3.6 3.5-5.0 mEq/L Normal 8 [facility] ([place] (0000 0) Comment: Performed By: #### CBC, ADIF F, ANEU, APTT, PRO, BMP, GFR, PRALB, TRF ####[place] [address] Potassium molar conc 3.3 3.5-5.0 mEq/L Low 8 [facility] ([place] (64860) Comment: Performed By: #### CBC, ADIF F, ANEU, APTT, PRO, BMP, GFR, PRALB, TRF ####[address] [address] hgbor on 2018-10-23 Hemoglobin mass conc 10.7 12.0-16.0 G/dL Low 8 [facility] ([facility] ([place]) (0000 0) Comment: Performed By: #### CBC, ADIF F, ANEU, APTT, PRO, BMP, GFR, PRALB, TRF ####[place] [address] Hemoglobin mass conc (Bld) 9.4 12.0-16.0 G/dL Low [facility] ([place] (0000 0) Comment: Performed By: #### CBC, ADIF F, ANEU, APTT, PRO, BMP, GFR, PRALB, TRF ####[place] [address] Hemoglobin mass conc 11.5 12.0-16.0 G/dL Low 8 [facility] ([facility]) ([place] (0000 0) Comment: Performed By: #### CBC, ADIF F, ANEU, APTT, PRO, BMP, GFR, PRALB, TRF ####[place] [address] Hemoglobin mass conc 11.7 12.0-16.0 G/dL Low 8 [facility] ([facility] ([place] (0000 0) Comment: Performed By: #### CBC, ADIF F, ANEU, APTT, PRO, BMP, GFR, PRALB, TRF ####[address] [address] hctor on 2018-10-23 Hematocrit Auto Volume 31.0 37.0-47.0 % Low 018 [facility] Fraction (Bld) ([place]) (10264) Comment: Performed By: #### CBC, ADIF F, ANEU, APTT, PRO, BMP, GFR, PRALB, TRF ####[place] [address] Hematocrit Auto Volume 28.0 37.0-47.0 % Low 018 [facility] (Bld) ([place]) (74869) Comment: Performed By: #### CBC, ADIF F, ANEU, APTT, PRO, BMP, GFR, PRALB, TRF ####[place] [address] Hematocrit Auto Volume 34.0 37.0-47.0 % Low 018 [facility] (Bld[place] ([place]) (79118) Comment: Performed By: #### CBC, ADIF F, ANEU, APTT, PRO, BMP, GFR, PRALB, TRF ####[place] [address] Hematocrit Auto Volume 34.0 37.0-47.0 % Low 018 [facility] (Bld[place] ([place]) (33238) Comment: Performed By: #### CBC, ADIF F, ANEU, APTT, PRO, BMP, GFR, PRALB, TRF ####[place] [address] gluor on 2018-10-23 Glucose mass conc 170 82-115 mg/dL High 10-23-2018 [facility] ([place]) (50237) Comment: Performed By: #### CBC, ADIF F, ANEU, APTT, PRO, BMP, GFR, PRALB, TRF ####[place] [address] Glucose mass conc 150 82-115 mg/dL High 10-23-2018 [facility] ([place]) (73304) Comment: Performed By: #### CBC, ADIF F, ANEU, APTT, PRO, BMP, GFR, PRALB, TRF ####[place] [address] Glucose mass conc 142 82-115 mg/dL High 10-23-2018 [facility] ([place]) (25663) Comment: Performed By: #### CBC, ADIF F, ANEU, APTT, PRO, BMP, GFR, PRALB, TRF ####[place] [address] Glucose mass conc 105 82-115 mg/dL Normal 10-23-2018 [facility] ([place]) (13248) Comment: Performed By: #### CBC, ADIF F, ANEU, APTT, PRO, BMP, GFR, PRALB, TRF ####[place] [address] cbc on 2018-10-23 Erythrocyte distribution 15.6 11.5-15.5 % High 10-23 [facility] width Auto Ratio (RBC) ([place]) (44303) Comment: Performed By: #### CBC, ADIF F, ANEU, APTT, PRO, BMP, GFR, PRALB, TRF ####[place] [address] Hematocrit Auto Volume 32.6 34.0-46.0 % Low 018 [facility]raction (Bld) ([place]) (38812) Comment: Performed By: #### CBC, ADIF F, ANEU, APTT, PRO, BMP, GFR, PRALB, TRF ####[place] [address] Hemoglobin mass conc 10.6 12.0-16.0 G/dL Low 8 [facility] (Bld) ([place]) (0000 0) Comment: Performed By: #### CBC, ADIF F, ANEU, APTT, PRO, BMP, GFR, PRALB, TRF ####[place] [address] MCH Auto Entitic mass 27.7 27.0-33.0 pg Normal 10-23-20 18 [facility] (RBC) ([place]) (0000 0) Comment: Performed By: #### CBC, ADIF F, ANEU, APTT, PRO, BMP, GFR, PRALB, TRF ####[address] [address] mass conc 32.6 32.0-36.0 G/dL Normal 10-23-2018 [facility] ([facility]BC) ([place]) (0000 0) Comment: Performed By: #### CBC, ADIF F, ANEU, APTT, PRO, BMP, GFR, PRALB, TRF ####[address] [address] MCV Auto Entitic volume 85.1 80.0-99.0 fL Normal 2017 [facility] ([facility]BC) ([place]) (0000 0) Comment: Performed By: #### CBC, ADIF F, ANEU, APTT, PRO, BMP, GFR, PRALB, TRF ####[place] [address] Platelet mean volume Auto 7.8 6.6-10.5 fL Normal 10-13 [facility] Entitic volume (Bld) ([place]) (61807) Comment: Performed By: #### CBC, ADIF F, ANEU, APTT, PRO, BMP, GFR, PRALB, TRF ####[address] [address] Platelets Auto #/vol 174 150-450 10 3/mcL Normal 8 [facility] (Bld) [facility] ([place]) (75935) Comment: Performed By: #### CBC, ADIF F, ANEU, APTT, PRO, BMP, GFR, PRALB, TRF ####[address] [address] RBC Auto #/vol (Bld) 3.83 4.10-5.30 10 6/mcL Low 8 [facility] ([place]) (0000 0) Comment: Performed By: #### CBC, ADIF F, ANEU, APTT, PRO, BMP, GFR, PRALB, TRF ####[address] [address] WBC Auto #/vol 13.10 4.50-10.80 10 3/mcL High 10-23-2018 [facility] ([facility] [place]) (40784) Comment: Performed By: #### CBC, ADIF F, ANEU, APTT, PRO, BMP, GFR, PRALB, TRF ####[place] [address] caor on 2018-10-23 Calcium Ionized OR 1.05 1.12-1.32 mmol/L Low 10-23-2018 [facility] ([place]) (0000 0) Comment: Performed By: #### CBC, ADIF F, ANEU, APTT, PRO, BMP, GFR, PRALB, TRF ####[place] [address] Calcium Ionized OR 0.97 1.12-1.32 mmol/L Low 10-23-2018 [facility]) (0000 0) Comment: Performed By: #### CBC, ADIF F, ANEU, APTT, PRO, BMP, GFR, PRALB, TRF ####[place] [address] Calcium Ionized OR 1.04 1.12-1.32 mmol/L Low 10-23-2018 [facility]) (0000 0) Comment: Performed By: #### CBC, ADIF F, ANEU, APTT, PRO, BMP, GFR, PRALB, TRF ####[place] [address] Calcium Ionized OR 1.01 1.12-1.32 mmol/L Low 10-23-2018 [facility] ([place]) (0000 0) Comment: Performed By: #### CBC, ADIF F, ANEU, APTT, PRO, BMP, GFR, PRALB, TRF ####[place] [address] bmp on 2018-10-23 Creatinine mass conc 0.61 0.50-1.20 mg/dL Normal 8 [facility] ([place]) (0000 0) Comment: Performed By: #### CBC, ADIF F, ANEU, APTT, PRO, BMP, GFR, PRALB, TRF ####[place] [address] Urea nitrogen/Creatinine mass 26.2 10.0-22.0 ratio High 10-23-2018 [facility] ([place]) (90485) Comment: Performed By: #### CBC, ADIF F, ANEU, APTT, PRO, BMP, GFR, PRALB, TRF ####[place] [address] Calcium mass conc 7.1 8.4-10.1 mg/dL Low 10-23-2018 [facility] ([place]) (43667) Comment: Performed By: #### CBC, ADIF F, ANEU, APTT, PRO, BMP, GFR, PRALB, TRF ####[place] [address] Chloride molar conc 111 98-110 mEq/L High 10-23-2018 [facility] ([place]) (75353) Comment: Performed By: #### CBC, ADIF F, ANEU, APTT, PRO, BMP, GFR, PRALB, TRF ####[place] [address] CO2 molar conc 24 22-32 mEq/L Normal 10-23-2018 [facility] ([place]) (41707) Comment: Performed By: #### CBC, ADIF F, ANEU, APTT, PRO, BMP, GFR, PRALB, TRF ####[place] [address] Electrolyte Balance 6.0 4.0-15.0 mEq/L Normal 10-23-2018 [facility] ([place]) (0000 0) Comment: Performed By: #### CBC, ADIF F, ANEU, APTT, PRO, BMP, GFR, PRALB, TRF ####[place] [address] Glucose mass conc 173 82-115 mg/dL High 10-23-2018 [facility] ([place]) (51250) Comment: Performed By: #### CBC, ADIF F, ANEU, APTT, PRO, BMP, GFR, PRALB, TRF ####[place] [address] Potassium molar conc 4.3 3.5-5.0 mEq/L Normal 8 [facility] ([place]) (0000 0) Comment: Performed By: #### CBC, ADIF F, ANEU, APTT, PRO, BMP, GFR, PRALB, TRF ####[place] [address] Sodium molar conc 141 136-145 mEq/L Normal 10-23-2018 [facility] ([place]) (95894) Comment: Performed By: #### CBC, ADIF F, ANEU, APTT, PRO, BMP, GFR, PRALB, TRF ####[place] [address] Urea nitrogen mass conc 16.0 8.0-22.0 mg/dL Normal 2017 [facility] ([place]) (73234) Comment: Performed By: #### CBC, ADIF F, ANEU, APTT, PRO, BMP, GFR, PRALB, TRF ####[place] [address] bgoh on 2018-10-23 Patient Location OPEN HEART Normal 10-23-2018 [facility] ([place]) (32816) Comment: Performed By: #### CBC, ADIF F, ANEU, APTT, PRO, BMP, GFR, PRALB, TRF ####[place] [address] Patient Location OPEN HEART Normal 10-23-2018 [facility] ([place]) (09635) Comment: Performed By: #### CBC, ADIF F, ANEU, APTT, PRO, BMP, GFR, PRALB, TRF ####[place] [address] Patient Location OPEN HEART Normal 10-23-2018 [facility] ([place]) (37156) Comment: Performed By: #### CBC, ADIF F, ANEU, APTT, PRO, BMP, GFR, PRALB, TRF ####[place] [address] Patient Location OPEN HEART Normal 10-23-2018 [facility] ([place]) (24155) Comment: Performed By: #### CBC, ADIF F, ANEU, APTT, PRO, BMP, GFR, PRALB, TRF ####[place] [address] bg on 2018-10-23 Barometric Pressure 735 mmHg Normal 10-23-2018 [facility] ([place]) (16643) Comment: Performed By: #### CBC, ADIF F, ANEU, APTT, PRO, BMP, GFR, PRALB, TRF ####[place] [address] Base excess Calculated -2.5 mmol/L Normal 018 [facility] molar conc (Bld) ([place] ) (98908) Comment: Performed By: #### CBC, ADIF F, ANEU, APTT, PRO, BMP, GFR, PRALB, TRF ####[place] [address] CO2 molar conc 24.1 22.0-30.0 mmol/L Normal 10-23-2018 [facility] ([place]) (16931) Comment: Performed By: #### CBC, ADIF F, ANEU, APTT, PRO, BMP, GFR, PRALB, TRF ####[place] [address] HCO3 molar conc 22.9 21.0-29.0 mmol/L Normal 10-23-2018 Replaced by [facility] (Bld) ([place]) (0000 0) Comment: Performed By: #### CBC, ADIF F, ANEU, APTT, PRO, BMP, GFR, PRALB, TRF ####[place] [address] Oxygen ppres (BldA) 209.8 74.0-108.0 mmHg High 8 [facility] ([place]) (0000 0) Comment: Performed By: #### CBC, ADIF F, ANEU, APTT, PRO, BMP, GFR, PRALB, TRF ####[address] [address] Oxygen saturation in Blood 99.2 92.0-96.0 % High [facility] ([place]) (0000 0) Comment: Performed By: #### CBC, ADIF F, ANEU, APTT, PRO, BMP, GFR, PRALB, TRF ####[address] [address] pCO2 41.6 32.0-46.0 mmHg Normal 10-23-2018 [facility] ([place]) ([id number]) Comment: Performed By: #### CBC, ADIF F, ANEU, APTT, PRO, BMP, GFR, PRALB, TRF ####[place] [address] pH (Bld) 7.358 7.380-7.460 [pH] Low 10-23-2018 [facility] ([place]) ([address]) Comment: Performed By: #### CBC, ADIF F, ANEU, APTT, PRO, BMP, GFR, PRALB, TRF ####[place] [address] Barometric Pressure 732 mmHg Normal 10-23-2018 [facility] ([place]) ([address]) Comment: Performed By: #### CBC, ADIF F, ANEU, APTT, PRO, BMP, GFR, PRALB, TRF ####[place] [address] Base excess Calculated -2.4 mmol/L Normal 018 [facility] molar conc (Bld) ([place] ) ([address]) Comment: Performed By: #### CBC, ADIF F, ANEU, APTT, PRO, BMP, GFR, PRALB, TRF ####[address] [address] CO2 molar conc 23.6 22.0-30.0 mmol/L Normal 10-23-2018 [facility] ([place]) ([address]) Comment: Performed By: #### CBC, ADIF F, ANEU, APTT, PRO, BMP, GFR, PRALB, TRF ####[address] [address] HCO3 molar conc 22.4 21.0-29.0 mmol/L Normal 10-23-2018 Replaced by [facility] ([facility]) ([place]) (0000 0) Comment: Performed By: #### CBC, ADIF F, ANEU, APTT, PRO, BMP, GFR, PRALB, TRF ####[address] [address] Oxygen ppres (BldA) 163.3 74.0-108.0 mmHg High 8 [facility] ([place]) (0000 0) Comment: Performed By: #### CBC, ADIF F, ANEU, APTT, PRO, BMP, GFR, PRALB, TRF ####[address] [address] Oxygen saturation in Blood 98.9 92.0-96.0 % High [facility] ([place]) (0000 0) Comment: Performed By: #### CBC, ADIF F, ANEU, APTT, PRO, BMP, GFR, PRALB, TRF ####[address] [address] pCO2 38.5 32.0-46.0 mmHg Normal 10-23-2018 [facility] ([place]) ([address]) Comment: Performed By: #### CBC, ADIF F, ANEU, APTT, PRO, BMP, GFR, PRALB, TRF ####[address] [address] pH (Bld) 7.383 7.380-7.460 [pH] Normal 10-23-2018 [facility] ([place]) ([address]) Comment: Performed By: #### CBC, ADIF F, ANEU, APTT, PRO, BMP, GFR, PRALB, TRF ####[address] [address] Barometric Pressure 733 mmHg Normal 10-23-2018 [facility] ([place]) ([address]) Comment: Performed By: #### CBC, ADIF F, ANEU, APTT, PRO, BMP, GFR, PRALB, TRF ####[address] [address] Base excess Calculated -0.3 mmol/L Normal 018 [facility] molar conc (d) ([place] ) ([id number]) Comment: Performed By: #### CBC, ADIF F, ANEU, APTT, PRO, BMP, GFR, PRALB, TRF ####[address] [address] CO2 molar conc 25.4 22.0-30.0 mmol/L Normal 10-23-2018 [facility] ([place]) (87919) Comment: Performed By: #### CBC, ADIF F, ANEU, APTT, PRO, BMP, GFR, PRALB, TRF ####[address] [address] HCO3 molar conc 24.2 21.0-29.0 mmol/L Normal 10-23-2018 Replaced by [facility] (d) ([place]) (0000 0) Comment: Performed By: #### CBC, ADIF F, ANEU, APTT, PRO, BMP, GFR, PRALB, TRF ####[address] [address] Oxygen ppres (BldA) 179.4 74.0-108.0 mmHg High 8 [facility] ([place]) (0000 0) Comment: Performed By: #### CBC, ADIF F, ANEU, APTT, PRO, BMP, GFR, PRALB, TRF ####[address] [address] Oxygen saturation in Blood 99.2 92.0-96.0 % High [facility] ([place]) (0000 0) Comment: Performed By: #### CBC, ADIF F, ANEU, APTT, PRO, BMP, GFR, PRALB, TRF ####[address] [address] pCO2 39.0 32.0-46.0 mmHg Normal 10-23-2018 [facility] ([place]) (56244) Comment: Performed By: #### CBC, ADIF F, ANEU, APTT, PRO, BMP, GFR, PRALB, TRF ####[address] [address] pH (Bld) 7.411 7.380-7.460 [pH] Normal 10-23-2018 [facility] ([place]) (23179) Comment: Performed By: #### CBC, ADIF F, ANEU, APTT, PRO, BMP, GFR, PRALB, TRF ####[address] [address] Barometric Pressure 734 mmHg Normal 10-23-2018 [facility] ([place]) (81664) Comment: Performed By: #### CBC, ADIF F, ANEU, APTT, PRO, BMP, GFR, PRALB, TRF ####[place] [address] Base excess Calculated 2.2 mmol/L Normal 018 [facility] molar conc (Bld) ([place] ) (00607) Comment: Performed By: #### CBC, ADIF F, ANEU, APTT, PRO, BMP, GFR, PRALB, TRF ####[address] [address] CO2 molar conc 27.2 22.0-30.0 mmol/L Normal 10-23-2018 [facility] ([place]) (84481) Comment: Performed By: #### CBC, ADIF F, ANEU, APTT, PRO, BMP, GFR, PRALB, TRF ####[address] [address] HCO3 molar conc 26.0 21.0-29.0 mmol/L Normal 10-23-2018 Replaced by [facility] (d) ([place]) (0000 0) Comment: Performed By: #### CBC, ADIF F, ANEU, APTT, PRO, BMP, GFR, PRALB, TRF ####[address] [address] Oxygen ppres (BldA) 161.9 74.0-108.0 mmHg High 8 [facility] ([place]) (0000 0) Comment: Performed By: #### CBC, ADIF F, ANEU, APTT, PRO, BMP, GFR, PRALB, TRF ####[address] [address] Oxygen saturation in Blood 99.1 92.0-96.0 % High [facility] ([place]) (0000 0) Comment: Performed By: #### CBC, ADIF F, ANEU, APTT, PRO, BMP, GFR, PRALB, TRF ####[address] [address] pCO2 37.5 32.0-46.0 mmHg Normal 10-23-2018 [facility] ([place]) (50549) Comment: Performed By: #### CBC, ADIF F, ANEU, APTT, PRO, BMP, GFR, PRALB, TRF ####[address] [address] pH (Bld) 7.459 7.380-7.460 [pH] Normal 10-23-2018 [facility] ([place]) (87929) Comment: Performed By: #### CBC, ADIF F, ANEU, APTT, PRO, BMP, GFR, PRALB, TRF ####[address] [address] Barometric Pressure 736 mmHg Normal 10-23-2018 [facility] ([place]) (77595) Comment: Performed By: #### CBC, ADIF F, ANEU, APTT, PRO, BMP, GFR, PRALB, TRF ####[address] [address] Base excess Calculated 3.9 mmol/L Normal 018 [facility] molar conc (Bld) ([place] ) (92312) Comment: Performed By: #### CBC, ADIF F, ANEU, APTT, PRO, BMP, GFR, PRALB, TRF ####[address] [address] CO2 molar conc 27.6 22.0-30.0 mmol/L Normal 10-23-2018 [facility] ([place]) (36367) Comment: Performed By: #### CBC, ADIF F, ANEU, APTT, PRO, BMP, GFR, PRALB, TRF ####[address] [address] HCO3 molar conc 26.6 21.0-29.0 mmol/L Normal 10-23-2018 Replaced by [facility] ([facility] ([place]) (0000 0) Comment: Performed By: #### CBC, ADIF F, ANEU, APTT, PRO, BMP, GFR, PRALB, TRF ####[place] [address] Oxygen ppres (BldA) 228.4 74.0-108.0 mmHg High 8 [facility] ([place]) (0000 0) Comment: Performed By: #### CBC, ADIF F, ANEU, APTT, PRO, BMP, GFR, PRALB, TRF ####[place] [address] Oxygen saturation in Blood 99.5 92.0-96.0 % High [facility] ([place]) (0000 0) Comment: Performed By: #### CBC, ADIF F, ANEU, APTT, PRO, BMP, GFR, PRALB, TRF ####[place] [address] pCO2 33.4 32.0-46.0 mmHg Normal 10-23-2018 [facility] ([place]) (23494) Comment: Performed By: #### CBC, ADIF F, ANEU, APTT, PRO, BMP, GFR, PRALB, TRF ####[address] [address] pH (Bld) 7.519 7.380-7.460 [pH] High 10-23-2018 [facility] ([place]) (23074) Comment: Performed By: #### CBC, ADIF F, ANEU, APTT, PRO, BMP, GFR, PRALB, TRF ####[address] [address] .neuabs on Neutrophil, Absolute 12.10 2.25-8.10 10 3/mcL High 8 [facility] ([place]) (07682) Comment: Performed By: #### CBC, ADIF F, ANEU, APTT, PRO, BMP, GFR, PRALB, TRF ####[address] [address] .gfr on 2018-10-23 GFR Non- >60 Normal 10-23 [facility] ([place]) (85748) Comment: Result Comment: GFR Populati on mean [...] ANEU, APTT, PRO, BMP, GFR, PRALB, TRF ####[address] [address] GFR >60 Normal 8 [facility] ([place]) (04431) Comment: Result Comment: GFR Populati on mean [...] ANEU, APTT, PRO, BMP, GFR, PRALB, TRF ####[address] [address] .auto diff on 10-23 Ammonia mass conc 0.40 0.09-1.40 10 3/mcL Normal 10-23-2018 [facility]) (86842) Comment: Performed By: #### CBC, ADIF F, ANEU, APTT, PRO, BMP, GFR, PRALB, TRF ####[address] [address] Basophils Auto #/vol 0.00 0.00-0.27 10 3/mcL Normal 8 [facility]) (65087) Comment: Performed By: #### CBC, ADIF F, ANEU, APTT, PRO, BMP, GFR, PRALB, TRF ####[address] [address] Basophils/100 WBC Auto ([facility]) 0.1 0.0-2.5 % Normal 1 12-24-2017 [facility]) (0000 0) Comment: Performed By: #### CBC, ADIF F, ANEU, APTT, PRO, BMP, GFR, PRALB, TRF ####[address] [address] Eosinophils Auto #/vol 0.00 0.00-0.65 10 3/mcL Normal 018 [facility]) (00855) Comment: Performed By: #### CBC, ADIF F, ANEU, APTT, PRO, BMP, GFR, PRALB, TRF ####[address] [address] Eosinophils/100 WBC Auto 0.0 0.0-6.0 % Normal 10-23 [facility] ([place]) (76555) Comment: Performed By: #### CBC, ADIF F, ANEU, APTT, PRO, BMP, GFR, PRALB, TRF ####[address] [address] Lymphocytes Auto #/vol 0.60 0.90-4.32 10 3/mcL Low 018 [facility]) (76386) Comment: Performed By: #### CBC, ADIF F, ANEU, APTT, PRO, BMP, GFR, PRALB, TRF ####[address] [address] Lymphocytes/100 WBC Auto (Bld) 4.5 20.0-40.0 % Low 10-23-2018 [facility] ([place]) (54063) Comment: Performed By: #### CBC, ADIF F, ANEU, APTT, PRO, BMP, GFR, PRALB, TRF ####[address] [address] Monocytes/100 WBC Auto (Bld) 3.1 2.0-13.0 % Normal 1 12-24-2017 [facility] ([place]) (66616) Comment: Performed By: #### CBC, ADIF F, ANEU, APTT, PRO, BMP, GFR, PRALB, TRF ####[address] [address] Neutrophils/100 WBC Auto 92.3 50.0-75.0 % High 10-23 [facility] ([place]) (62318) Comment: Performed By: #### CBC, ADIF F, ANEU, APTT, PRO, BMP, GFR, PRALB, TRF ####[address] [address] trf on 2018-10-02 Transferrin mass conc 324 202-336 mg/dL Normal 10-02-20 18 [facility] ([place]) (0000 0) Comment: Performed By: #### CBC, ADIF F, ANEU, APTT, PRO, BMP, GFR, PRALB, TRF ####[address] [address] pro on 2018-10-02 INR Coag RelTime (PPP) 1.1 ratio Normal 018 [facility] ([place]) (72091) Comment: Result Comment: The [employer] (CHEST, 1991, 102:312S-25S)recommended the rapeutic range for oral anticoagulant therapy is:LOW RISK: Prophylaxis of venous thrombosis INR: 2.0-3.0 Treatment of pulmonary embolism 2.0-3.0 P revention of systemic embolism 2.0-3.0HIGH RISK: Mechanical prosthetic valves 2.5-3.5 Performed By: #### CBC, ADIF F, ANEU, APTT, PRO, BMP, GFR, PRALB, TRF ####[place] [id number] [place] [address] Prothrombin time (PT) 12.5 9.0-14.6 seconds Normal 10-02-20 18 [facility] Coag time (PPP) [facility] ([place]) (00253) Comment: Result Comment: Effective , Protime results may be affected by some antibiotics (i.e. Ciprofloxa giovanni, Azithromycin, Bactrim) which may potentiate the action of oral anticoagu lants, with further increases in Protime/INR. Performed By: #### CBC, ADIF F, ANEU, APTT, PRO, BMP, GFR, PRALB, TRF ####[address] [address] pralb on 2018-10-02 Prealbumin mass conc 20.3 18.0-38.0 mg/dL Normal 8 [facility] ([place]) (0000 0) Comment: Performed By: #### CBC, ADIF F, ANEU, APTT, PRO, BMP, GFR, PRALB, TRF ####[place] [id number] [place] [address] cbc on 2018-10-02 Erythrocyte distribution 16.0 11.5-15.5 % High 10-02 [facility] width Auto Ratio (RBC) ([place]) (64369) Comment: Performed By: #### CBC, ADIF F, ANEU, APTT, PRO, BMP, GFR, PRALB, TRF ####[place] [id number] [place] [address] Hematocrit Auto Volume 34.5 34.0-46.0 % Normal 018 [facility] Fraction (Bld) ([place]) (54980) Comment: Performed By: #### CBC, ADIF F, ANEU, APTT, PRO, BMP, GFR, PRALB, TRF ####[address] [address] Hemoglobin mass conc 11.5 12.0-16.0 G/dL Low 8 [facility] (Bld) ([place]) (0000 0) Comment: Performed By: #### CBC, ADIF F, ANEU, APTT, PRO, BMP, GFR, PRALB, TRF ####[place] [address] MCH Auto Entitic mass 27.9 27.0-33.0 pg Normal 10-02-20 18 [facility] (RBC) ([place]) (0000 0) Comment: Performed By: #### CBC, ADIF F, ANEU, APTT, PRO, BMP, GFR, PRALB, TRF ####[place] [address] MCHC Auto mass conc 33.3 32.0-36.0 G/dL Normal 10-02-2018 [facility] (RBC) ([place]) (0000 0) Comment: Performed By: #### CBC, ADIF F, ANEU, APTT, PRO, BMP, GFR, PRALB, TRF ####[place] [address] MCV Auto Entitic volume 83.6 80.0-99.0 fL Normal 2017 [facility] (RBC) ([place]) (0000 0) Comment: Performed By: #### CBC, ADIF F, ANEU, APTT, PRO, BMP, GFR, PRALB, TRF ####[address] [address] Platelet mean volume Auto 8.1 6.6-10.5 fL Normal 09-14 [facility] Entitic volume (Bld) ([place]) (43761) Comment: Performed By: #### CBC, ADIF F, ANEU, APTT, PRO, BMP, GFR, PRALB, TRF ####[address] [address] Platelets Auto #/vol 255 150-450 10 3/mcL Normal 8 [facility]) (26739) Comment: Performed By: #### CBC, ADIF F, ANEU, APTT, PRO, BMP, GFR, PRALB, TRF ####[address] [address] RBC Auto #/vol 4.13 4.10-5.30 10 6/mcL Normal 10-02-2018 [facility] ([place]) (35727) Comment: Performed By: #### CBC, ADIF F, ANEU, APTT, PRO, BMP, GFR, PRALB, TRF ####[address] [address] WBC Auto #/vol ([facility]) 4.40 4.50-10.80 10 3/mcL Low 10-02-20 18 [facility] ([place]) (0000 0) Comment: Performed By: #### CBC, ADIF F, ANEU, APTT, PRO, BMP, GFR, PRALB, TRF ####[address] [address] bmp on 2018-10-02 Calcium mass conc 8.6 8.4-10.1 mg/dL Normal 10-02-2018 A [facility]) (47444) Comment: Performed By: #### CBC, ADIF F, ANEU, APTT, PRO, BMP, GFR, PRALB, TRF ####[address] [address] Chloride molar conc 103 98-110 mEq/L Normal 10-02-2018 [facility] ([place]) (92342) Comment: Performed By: #### CBC, ADIF F, ANEU, APTT, PRO, BMP, GFR, PRALB, TRF ####[address] [address] CO2 molar conc 28 22-32 mEq/L Normal 10-02-2018 [facility] ([place]) (93455) Comment: Performed By: #### CBC, ADIF F, ANEU, APTT, PRO, BMP, GFR, PRALB, TRF ####[place] [address] Creatinine mass conc 0.74 0.50-1.20 mg/dL Normal 8 [facility]) (0000 0) Comment: Performed By: #### CBC, ADIF F, ANEU, APTT, PRO, BMP, GFR, PRALB, TRF ####[place] [address] Electrolyte Balance 8.0 4.0-15.0 mEq/L Normal 10-02-2018 [facility]) (0000 0) Comment: Performed By: #### CBC, ADIF F, ANEU, APTT, PRO, BMP, GFR, PRALB, TRF ####[place] [address] Glucose mass conc 87 82-115 mg/dL Normal 10-02-2018 [facility]) (12055) Comment: Performed By: #### CBC, ADIF F, ANEU, APTT, PRO, BMP, GFR, PRALB, TRF ####[place] [address] Potassium molar conc 4.0 3.5-5.0 mEq/L Normal 8 [facility]) (0000 0) Comment: Performed By: #### CBC, ADIF F, ANEU, APTT, PRO, BMP, GFR, PRALB, TRF ####[place] [address] Sodium molar conc 139 136-145 mEq/L Normal 10-02-2018 A [facility]) (44676) Comment: Performed By: #### CBC, ADIF F, ANEU, APTT, PRO, BMP, GFR, PRALB, TRF ####[address] [address] Urea nitrogen mass conc 18.0 8.0-22.0 mg/dL Normal 2017 [facility]) (69218) Comment: Performed By: #### CBC, ADIF F, ANEU, APTT, PRO, BMP, GFR, PRALB, TRF ####[address] [address] Urea nitrogen/Creatinine mass 24.3 10.0-22.0 ratio High 10-02-2018 [facility] ([place]) (71946) Comment: Performed By: #### CBC, ADIF F, ANEU, APTT, PRO, BMP, GFR, PRALB, TRF ####[address] [address] aptt on 2018-10-02 aPTT Coag time (Bld) Unknown Normal 8 [facility]) (19837) Comment: Performed By: #### CBC, ADIF F, ANEU, APTT, PRO, BMP, GFR, PRALB, TRF ####[address] [address] aPTT Coag time (Bld) 27.1 25.0-35.0 seconds Normal 8 [facility] ([place]) (71188) Comment: Result Comment: For Heparin anticoagulation therapy, the recommendedtherapeutic range is: 54-77 seconds (APTT Correlationwith Anti-Xa therapeutic range of 0.3-0.7 units/ml).PLEASE REFERENCE THE PHARMACY PROTOCOL FOR DOSING. Performed By: #### CBC, ADIF F, ANEU, APTT, PRO, BMP, GFR, PRALB, TRF ####[address] [address] .neuabs on Neutrophil, Absolute 2.30 2.25-8.10 10 3/mcL Normal 8 [facility] ([place]) (98193) Comment: Performed By: #### CBC, ADIF F, ANEU, APTT, PRO, BMP, GFR, PRALB, TRF ####[address] [address] .gfr on 2018-10-02 GFR >60 Normal 8 [facility]) (45611) Comment: Result Comment: GFR Populati on mean [...] ANEU, APTT, PRO, BMP, GFR, PRALB, TRF ####[place] [address] [place] [address] GFR Non- >60 Normal 10-02 [facility] ([place]) (49603) Comment: Result Comment: GFR Populati on mean [...] ANEU, APTT, PRO, BMP, GFR, PRALB, TRF ####[address] [address] .auto diff on 10-02 Ammonia mass conc 0.50 0.09-1.40 10 3/mcL Normal 10-02-2018 [facility] [employer] () [facility] ([place]) (61821) Comment: Performed By: #### CBC, ADIF F, ANEU, APTT, PRO, BMP, GFR, PRALB, TRF ####[address] [address] Basophils Auto #/vol 0.00 0.00-0.27 10 3/mcL Normal 8 [facility]) (87410) Comment: Performed By: #### CBC, ADIF F, ANEU, APTT, PRO, BMP, GFR, PRALB, TRF ####[address] [address] Basophils/100 WBC Auto ([facility]) 0.5 0.0-2.5 % Normal 1 12-02-2017 [facility]) (0000 0) Comment: Performed By: #### CBC, ADIF F, ANEU, APTT, PRO, BMP, GFR, PRALB, TRF ####[address] [address] Eosinophils Auto #/vol 0.20 0.00-0.65 10 3/mcL Normal 018 [facility]) (23203) Comment: Performed By: #### CBC, ADIF F, ANEU, APTT, PRO, BMP, GFR, PRALB, TRF ####[address] [address] Eosinophils/100 WBC Auto 3.7 0.0-6.0 % Normal 10-02 [facility]) (66481) Comment: Performed By: #### CBC, ADIF F, ANEU, APTT, PRO, BMP, GFR, PRALB, TRF ####[address] [address] Lymphocytes Auto #/vol 1.40 0.90-4.32 10 3/mcL Normal [address] [place] [address]) (72621) Comment: Performed By: #### CBC, ADIF F, ANEU, APTT, PRO, BMP, GFR, PRALB, TRF ####[address] [address] Lymphocytes/100 WBC Auto 32.3 20.0-40.0 % Normal 10-02 [facility]) (83838) Comment: Performed By: #### CBC, ADIF F, ANEU, APTT, PRO, BMP, GFR, PRALB, TRF ####[facility] [place] [address] Monocytes/100 WBC Auto 10.6 2.0-13.0 % Normal 018 [facility]) (30122) Comment: Performed By: #### CBC, ADIF F, ANEU, APTT, PRO, BMP, GFR, PRALB, TRF ####[facility] [place] [address] Neutrophils/100 WBC Auto 52.9 50.0-75.0 % Normal 10-02 [facility]) (70654) Comment: Performed By: #### CBC, ADIF F, ANEU, APTT, PRO, BMP, GFR, PRALB, TRF ####[facility] [place] [address] xr pelvis 1 vw on 2 XR PELVIS 1 VW * * *Final Report* * *DATE OF Leonie l 08-01-2017 [facility] EXAM: Aug 01 2017 7:08AM CHRISTO ([id number]) 1456 - XR PELVIS 1 VW / REASON: [id number], unspecified * * * * Physician Interpretation [...] EST progress on 2017-07 PROGRESS HNO ID: [id number]: Normal 07-14 [facility] (Ct) [place], CTService: ([id number]) (none)Author Type: Clinical TechnicianType: Progress NotesFiled: 08/01/2017 7:22 AMNote Text:NAME:Cr aMry: August 01, 2017[facility] [id number] X-Ray COMPLETEDTECH ID SIGN: NAZ ANGEL office visit: screening colonoscopy on 2017-05-04 Dietary management yes Invalid 05-04-2017 [facility] Surgical education, Interpretation Code 7 [facility] guidance, and (54745 ) counseling (procedure) Documentation of Done Invalid 05-04-2017 [facility] Surgical current medications Interpretation Code 05-04-2017 [facility] (procedure) (34943) Protein mass conc Done 05-04-2017 [facility] Surgical 05-04-2017 [facility] ([id number]) Tobacco smoking Never Invalid 05-04-2017 - [facility] Surgical status [facility] Interpretation Code 05-04-20 17 [facility] ([id number]) Tobacco smoking Never smoker 05-04-2017 [facility] Surgical status [facility] 05-04-2017 [facility]ary[facility] (85698) Tobacco use HS Never smoker Invalid 05-04-2017 [facility] Surgical Interpretation Code 05-04-2017 [facility] ([id number]) lab report: liver profile on 2016-08-24 Alanine 16 12-78 U/L Invalid 08-24-2016 [facility] Diana gical aminotransferase Interpretation 08-24-20 16 [facility] (ALT) Code (87064) Albumin 3.7 3.4-5.0 g/dL Invalid 08-24-2016 [facility] Diana gical Interpretation 08-24-2016 As[facility] ciates Code (65493) Alkaline phosphatase 74 50-136 U/L Invalid [facility] Surgical (ALP) Interpretation 08-24-2016 [facility] Code (48143) ALP enzyme act/vol 74 50-136 U/L 08-24-2016 [facility] Surgical (Bld) 08-24-2016 [facility] ([id number]) Aspartate 20 15-37 U/L Invalid 08-24-2016 [facility] Diana gical aminotransferase Interpretation 08-24-20 16 [facility] (AST) Code (83648) Bilirubin (direct) 0.12 0.00-0.30 mg/dL Invalid 08-24-2016 [facility] Surgical Interpretation 08-24-2016 [facility] Code (05614) Bilirubin (total) 0.50 0.20-1.00 mg/dL Invalid 08-24-2016 - [facility] Surgical Interpretation 08-24-2016 [facility] Code (33893) Globulin 4.2 2.3-3.5 g/dL High 08-24-2016 - [facility] Diana gical 08-24-2016 [facility] ([id number]) Globulin mass conc 4.2 2.3-3.5 g/dL High 08-24-2016 [facility] Surgical (S) 08-24-2016 [facility] ([id number]) Protein 7.9 6.4-8.2 g/dL Invalid 08-24-2016 [facility] Diana gical Interpretation 08-24-2016 [facility] Code (10684) lab report: cbc-complete blood cnt no di ff on 2016-08-24 Erythrocyte 44.9 35.1-43.9 fL High 08-24-2016 [facility] S urgical distribution 08-24-2016 Associ ates width Ratio (24540) (RBC) Erythrocyte 13.8 11.6-14.6 % 08-24-2016 [facility] S urgical distribution 08-24-2016 [facility] ates width Ratio (69326) (RBC) Erythrocytes 4.47 4.2-5.4 10*6/u Invalid 08-24-2016 [facility] Surgical (RBC) L Interpretation 08-24-2016 [facility] ci[facility] Code (87893) Hematocrit (HCT) 40.2 37-47 % Invalid 08-24-2016 [facility] Surgical Interpretation 08-24-2016 Asso ciates Code (98521) Hematocrit 40.2 37-47 % 08-24-2016 [facility] Tony rgical Volume Fraction 08-24-2016 Ass [facility]ci[facility] (Bld) (07187) Hemoglobin (HGB) 13.3 12.0-15.0 g/dL Invalid 08-24-2016 - [facility] Surgical Interpretation 08-24-2016 Asso ciates Code (46173) MCH 29.8 27.0-32.0 pg Invalid 08-24-2016 [facility] Diana gical Interpretation 08-24-2016 Asso ciates Code (73346) MCH Entitic mass 29.8 27.0-32.0 pg 08-24-2016 - [facility] Surgical (RBC) 08-24-2016 [facility] ([id number]) MCHC 33.1 32-36 Invalid 08-24-2016 [facility] Diana gical G/GL Interpretation 08-24-2016 Asso ciates Code (66293) MCHC mass conc 33.1 32-36 08-24-2016 - H Surgical (RBC) G/GL 08-24-2016 [facility] ([id number]) MCV 89.9 81-99 fL Invalid 08-24-2016 [facility] Diana gical Interpretation 08-24-2016 Asso ciates Code (07455) MCV Entitic 89.9 81-99 fL 08-24-2016 - [facility] S urgical volume (RBC) 08-24-2016 Associ ates (49910) Platelet mean 10.3 6.2-12.0 fL 08-24-2016 [facility] Surgical volume Entitic 08-24-2016 Asso ciates volume (Bld) (36023) Platelets 279 150-450 10*3/m Invalid 08-24-2016 [facility] Idana gical m3 Interpretation 08-24-2016 Asso ciates Code (81756) Platelets #/vol 279 150-450 10*3/m 08-24-2016 - [facility] (Bld) m3 08-24-2016 [facility] ([id number]) PMV by 10.3 6.2-12.0 fL Invalid 08-24-2016 [facility] Diana gical Esau-Holly Interpretation 08-24-2016 Ass ociates Code (59521) RBC #/vol (Bld) 4.47 4.2-5.4 10*6/u 08-24-2016 - [facility] L 08-24-2016 [facility] ([id number]) RDW-CA 13.8 11.6-14.6 % Invalid 08-24-2016 [facility] Diana gical Interpretation 08-24-2016 Asso ciates Code (33292) red blood cell 44.9 35.1-43.9 fL High 08-24-2016 - H Surgical distribution 08-24-2016 Associ ates width, size (91942) density WBC #/vol (Bld) 6.1 4.4-11.0 10*9/L 08-24-2016 - W Surgical 08-24-2016 Associate [facility] ([id number]) WBC (Leukocytes) 6.1 4.4-11.0 10*9/L Invalid 08-24-2016 - [facility] Surgical Interpretation 08-24-2016 Trevor culver Code (00157) office visit: new patient consult abnorm al mammogram referral from dr. yang on 2016-07-18 Breast Abnormal Left Invalid 07-18-2016 [facility] Surgical Mammogram Interpretation Code 07-18-2016 [facility] screening (32786) MG Breast Abnormal Left 07-18-2016 [facility] Surgical screening 07-18-2016 [facility] ([id number]) replaced document: tsh on 2012-02-02 Thyroid stimulating 1.67 0.358-3.74 u[iU]/mL Normal [facility] Surgical hormone (TSH) 02-02-2012 Assoc iates (31471) replaced document: bmp on 2012-02-02 Calcium 8.7 8.5-10.1 mg/dL Normal 02-02-2012 [facility] Diana gical 02-02-2012 Associate s (77761) Chloride 100 98-107 mmol/L Normal 02-02-2012 [facility] Diana gical 02-02-2012 Associate s ([id number]) Creatinine 0.9 0.6-1.0 mg/dL Normal 02-02-2012 [facility] Tony rgical 02-02-2012 Associate s ([id number]) Glucose 119 70-110 mg/dL High 02-02-2012 [facility] Diana gi02-02-2012 Associate s ([id number]) Glucose mass conc 119 70-110 mg/dL High 02-02-2012 [facility] Surgical 02-02-2012 Associate s ([id number]) Potassium 3.3 3.5-5.1 mmol/L Low 02-02-2012 [facility] Diana gical 02-02-2012 Associate s ([id number]) Sodium 139 136-145 mmol/L Normal 02-02-2012 [facility] Diana gical 02-02-2012 Associate s ([id number]) Urea nitrogen 14 7-18 mg/dL Normal 02-02-2012 [facility] Surgical 02-02-2012 Associate s ([id number]) lab report: btnp on 2012-02-02 BTNP 15.7 <100 pg/mL Normal 02-02-2012 - [facility] Diana gical 02-02-2012 Associate s ([id number]) GE use only - for 15.7 <100 pg/mL Normal 02-02-2012 - [facility] Surgical [employer] import 02-02-2012 As sociates ([id number]) when terms are not otherwise specified ekg report: midmark ecg observations on 2012-01-31 EKG QRS axis 14 deg 01-31-2012 - [facility] Surgical 01-31-2012 Associate s ([id number]) electrocardiogram Sinus Rhythm Invalid [facility] Surgical interpretation -RSR(V1) Interpretation 01-31-2012 Associates -nondiagnost Code ([id number]) ic . PROBABLY NORMAL Interpretation Sinus Rhythm 01-31-2012 - [facility] Surgical -RSR(V1) 01-31-2012 Associate s -nondiagnost ([id number]) ic . PROBABLY NORMAL P [place] 45 deg 01-31-2012 - [facility] Diana gical 01-31-2012 Associate s ([id number]) P wave axis, 45 deg Invalid 01-31-2012 [facility] Surgical electrocardiogram Interpretation 012 Associates Code ([id number]) FL Interval 146 ms 01-31-2012 - [facility] S urgical 01-31-2012 Associate s ([id number]) FL interval, 146 ms Invalid 01-31-2012 [facility] Surgical electrocardiogram Interpretation 012 Associates Code ([id number]) Pulse (Heart Rate) 430 ms Invalid 01-31-2012 - [facility] Surgical Interpretation 01-31-2012 Asso ciates Code ([id number]) Pulse (Heart Rate) 69 BPM /min Invalid 01-31-2012 - [facility] Surgical Interpretation 01-31-2012 Asso ciates Code ([id number]) QRS axis, 14 deg Invalid 01-31-2012 - [facility] Diana gical electrocardiogram Interpretation 012 Associates Code ([id number]) QRS Duration 98 ms 01-31-2012 - [facility] Surgical 01-31-2012 Associate s ([id number]) QRS duration, 98 ms Invalid 01-31-2012 [facility] Surgical electrocardiogram Interpretation 012 Associates Code ([id number]) QT Interval new path ms 01-31-2012 - [facility] Surgical 01-31-2012 Associate s ([id number]) QT interval, new path ms Invalid 01-31-2012 - [facility] Surgical electrocardiogram Interpretation 012 Associates Code ([id number]) T [place] -1 deg 01-31-2012 - [facility] Diana gical 01-31-2012 Associate s ([id number]) T wave axis, -1 deg Invalid 01-31-2012 [facility] Surgical electrocardiogram Interpretation 012 Associates Code ([id number]) office visit: new patient consult abnorm al mammogram referral from dr. yang on 2005-11-21 General categories hysterectomy Invalid 11-21-19 [facility] Surgical [interpretation] of Interpretation Code 11-21-2005 Associates Cervical or vaginal (54164) smear or scraping by Cyto stain General categories hysterectomy 11-21-19 - [facility] Surgical Cyto stain Interp 11-21-2005 A ssociates (Cervical or vaginal (53281) smear or scraping) office visit: new patient consult abnorm al mammogram referral from dr. yang on 2000-11-20 Colonoscopy Normal Invalid 11-20-2000 [facility] S urgical (procedure) Interpretation Code 11-20-19 01 Associates ([id number]) Protein mass conc Normal 11-20-2000 - [facility] Surgical 11-20-2000 Associate s ([id number]) Vital Signs Vital Sign Description Value / Unit Date Location The following section is limited to 5 en tries per type and includes entries from the following time range: [id number] - [id number] 2. BMI (Body Mass Index) 38.48 kg/m2 05-04-2017 - 05-04-2017 [facility] Surgical Associates ([id number]) Body Temperature 97.9 [degF] 07-24-2020 [facility] c ([id number]) Body Temperature 98.1 [degF] 05-04-2017 - 05-04-2017 [facility] Diana gical Associates ([id number]) Body Temperature 98.1 [degF] 08-10-2016 - 08-10-2016 [facility] Diana gical Associates ([id number]) Body weight 106.14 kg 07-24-2020 [facility] ([id number]) BP Diastolic 70 mm[Hg] 07-24-2020 [facility] ([id number]) BP Diastolic 87 mm[Hg] 05-04-2017 - 05-04-2017 [facility] Surg ical Associates ([id number]) BP Systolic 134 mm[Hg] 07-24-2020 [facility] ([id number]) BP Systolic 136 mm[Hg] 05-04-2017 - 05-04-2017 [facility] Surg ical Associates ([id number]) BSA (Body Surface Area) 2.09 m2 09-21-2016 - 09-21-2016 [facility] ([id number]) Heart rate 69 /min 01-31-2012 - 01-31-2012 [facility] Surg ical Associates ([id number]) Heart rate 430 ms 01-31-2012 - 01-31-2012 [facility] Surg ical Associates ([id number]) Height 162.56 cm 05-04-2017 - 05-04-2017 [facility] Surg ical Associates ([id number]) Height 162.56 cm 09-21-2016 - 09-21-2016 [facility] Surg ical Associates ([id number]) Pulse (Heart Rate) 77 /min 07-24-2020 [facility] ([id number]) Pulse (Heart Rate) 71 /min 05-04-2017 - 05-04-2017 [facility] S urgical Associates ([id number]) Pulse Oximetry 98 % 05-04-2017 - 05-04-2017 [facility] Surg ical Associates ([id number]) Respiratory Rate 20 /min 05-04-2017 - 05-04-2017 [facility] Diana gical Associates ([id number]) Weight 101.7 kg 05-04-2017 - 05-04-2017 [facility] Surg ical Associates ([id number]) Weight 105.45 kg 09-21-2016 - 09-21-2016 [facility] Surg ical Associates ([id number]) Encounters Date Type Reason Provider Location 08-01-2017 - Ambulatory [facility]H [facility] 08-01-2017 ([id number]) 10-26-2018 - Evaluation and PIERRE Cobian ty:R 11-03-2018 management of RAQUEL DUNN inpatient VINICIO GAN 10-23-2018 - Evaluation and CITLALY DUNN Facilit y:A 10-26-2018 management of VINICIO FARELY inpatient [facility] HOSPITALIST CARA DUMONT 07-24-2020 - Patient encounter Malignant neoplasm S[facility] [place] [facility] 07-24-2020 procedure of upper-outer Vanesa [...] Date Provider Location Dietary management 05-04-2017 - [facility] Surgical education, guidance, and 05-04-2017 [facility] ([id number]) counseling Follow Up Appt Other 05-04-2017 - Eliana Hancock MD [facility] Tony rgical 05-04-2017 Associates ([id number]) Screening for malignant 05-04-2017 [facility] Surg ical neoplasm of colon Associates ([id number]) Follow-up visit 09-21-2016 - Jarod Chavez [facility] Surgica l 09-23-2016 MD [facility] ([id number]) *Hepatic Function Panel 08-24-2016 - Jarod Chavez [facility] Surgical 08-25-2016 MD [facility]oto ([id number]) CBC W Auto Differential 08-24-2016 - Jarod Chavez [facility] Surgical panel - Blood 08-25-2016 MD [facility] ([id number]) Chest x-ray 4/> views 08-24-2016 - Jarod Chavez [facility] S urgical 09-23-2016 MD [facility] ([id number]) Follow Up Appt 2 weeks 08-24-2016 - Jarod Chavez [facility] Surgical 08-25-2016 MD [facility] ([id number]) Follow Up after Imaging/labs 08-10-2016 - Jarod jim [facility] Surgical 08-25-2016 MD [facility] ([id number]) Mammogram, both breasts 08-10-2016 - Jarod Chavez [facility] Surgical 08-11-2016 MD [facility] ([id number]) Us exam, breast(s) 08-10-2016 - Jarod Chavez [facility] Surg ical 08-11-2016 MD [facility] ([id number]) Mammography 01-24-2013 - [facility] 01-24-2013 ([id number]) Follow Up Appt Other 04-11-2012 - Mejia Lozano MD [facility] Surgi ev 04-11-2012 Associates ([id number]) *BMP 01-31-2012 - Mejia Lozano MD [facility] Surgical 02-02-2012 Associates ([id number]) *CBC with Differential 01-31-2012 - Mejia Lozano MD [facility] Diana gical 02-02-2012 Associates ([id number]) BNP 01-31-2012 - Mejia Lozano MD [facility] Surgical 02-02-2012 Associates ([id number]) Echocardiography 01-31-2012 - Mejia Lozano MD [facility] Surgical 02-02-2012 Associates ([id number]) Electrocardiogram, complete 01-31-2012 - Mejia Lozano MD [facility] Surgical 01-31-2012 Associates ([id number]) Follow Up Appt 2 months 01-31-2012 - Mejia Lozano MD [facility] Tony rgical 01-31-2012 Associates ([id number] 1) Nuclear stress test 01-31-2012 - Mejia Lozano MD [facility] Surgic al -adenosine 02-02-2012 Associates ([id number] 1) Thyroid stimulating hormone 01-31-2012 - Mejia Lozano MD [facility] Surgical (TSH) 02-02-2012 Associates ([id number] 1) Colonoscopy 10-19-2004 - [facility] 10-19-2004 ([id number]) Plan of Treatment Plan Description Date Location DTAP,TDAP,TD (2 - Td) DTAP,TDAP,TD (2 - Td) 01-07-2023 - [facility] 01-07-2023 ([id number]) INFLUENZA (#1) INFLUENZA (#1) 2020 - [facility] 07-14-2020 ([id number]) ADVANCE DIRECTIVE ADVANCE DIRECTIVE 2018 - [facility] inic DISCUSSION DISCUSSION 2018 ([id number]) BONE DENSITY BONE DENSITY 2018 - [facility] 2018 ([id number]) PNEUMOVAX AGE 65 AND OVER PNEUMOVAX AGE 65 AND OVER 2018 - [facility] WITH 5YR LOOKBACK (#1) WITH 5YR LOOKBACK (#1) 2018 ([id number]) Appointment Appointment 05-22-2017 - [facility] Surgical 05-22-2017 Associates ([id number] 1) Appointment Appointment 05-04-2017 [facility] Surgical 05-04-2017 Associates ([id number] 1) Colonoscopy Colonoscopy 05-04-2017 [facility] Surgical 05-04-2017 Associates ([id number] 1) Follow Up Appt Other Follow Up Appt Other 05-04-2017 [facility] Tony rgical 05-04-2017 Associates ([id number] 1) Follow Up as needed Follow Up as needed 09-21-2016 [facility] Surg ical 09-23-2016 Associates ([id number]) Primary Care Physician Primary Care Physician 09-21-2016 [facility] Surgical Haim HubbardeyHaim Albarraneye 09-30-2016 Trevor culver ([id number]) [facility], [address] [facility], [address], Mitchel A, [address], [place] A, [place], [address] [place], [address] Oncology Referral no information 09-12-2016 [facility] Surgical Frankie Khan MD, 09-12-2016 [facility] ([id number]) [facility], [address], [place], [address] *Hepatic Function Panel *Hepatic Function Panel 08-24-2016 [facility] Surgical 08-25-2016 Associates ([id number]) *CBC *CBC 08-24-2016 - [facility] Surgical 08-25-2016 Associates ([id number]) Chest XRAY Chest XRAY 08-24-2016 [facility] Surgical 09-23-2016 Associates ([id number]) Follow Up Appt 2 weeks Follow Up Appt 2 weeks 08-24-2016 - [facility] Surgical 08-25-2016 Associates ([id number]) Oncology Referral Tao Oncology Referral Tao 08-24-2016 [facility] Chidi Morgan MD, [address] Morgan MD, [address] 08-24-2016 Associates ([id number]) [place], [address] [place], [address] Stereotactic localization Stereotactic localization 08-11-2016 - [facility] Surgical guidance for breast guidance for breast 08-11-2016 Associat meño ([id number]) biopsy biopsy Follow Up after Follow Up after 08-10-2016 - [facility] Surgical Imaging/labs Imaging/labs 08-25-2016 Associates ([id number]) Mammogram, Diagnostic, Mammogram, Diagnostic, 08-10-2016 [facility] Surgical both breasts both breasts 08-11-2016 Associates ([id number]) US Breast(s) US Breast(s) 08-10-2016 - [facility] Surgical 08-11-2016 Associates ([id number]) LIPID SCREEN LIPID SCREEN 04-30-2015 - [facility] 04-30-2015 ([id number]) COLONOSCOPY COLONOSCOPY 10-19-2014 - [facility] 10-19-2014 ([id number]) MAMMOGRAM MAMMOGRAM 01-24-2014 - [facility] 01-24-2014 ([id number]) DIABETES SCREEN DIABETES SCREEN 04-30-2013 - [facility] 04-30-2013 ([id number]) Follow Up Appt Other Follow Up Appt Other 04-11-2012 - [facility] Tony rgical 04-11-2012 Associates ([id number] 1) *BMP *BMP 01-31-2012 [facility] Surgical 02-02-2012 Associates ([id number]) *CBC with Differential *CBC with Differential 01-31-2012 - [facility] Surgical 02-02-2012 Associates ([id number]) *Brain Natriuretic *Brain Natriuretic 01-31-2012 [facility] Surgic al Peptide BNP Peptide BNP 02-02-2012 Associates ([id number] 1) Echocardiogram (complete) Echocardiogram (complete) 01-31-2012 [facility] Surgical 01-31-2012 Associates ([id number] 1) EKG (In office) EKG (In office) 01-31-2012 [facility] Surgical 01-31-2012 Associates ([id number]) Follow Up Appt 2 months Follow Up Appt 2 months 01-31-2012 - [facility] Surgical 01-31-2012 Associates ([id number] 1) Nuclear stress test Nuclear stress test 01-31-2012 [facility] Surg ical -adenosine -adenosine 01-31-2012 Associates ([id number] 1) *TSH *TSH 01-31-2012 [facility] Surgical 02-02-2012 Associates ([id number] 1) SHINGRIX VACCINE (1 of 2) SHINGRIX VACCINE (1 of 2) 2003 - [facility] 2003 ([id number]) ANNUAL PCP TEAM CHRONIC ANNUAL PCP TEAM CHRONIC 1971 - [facility] DISEASE VISIT DISEASE VISIT 1971 ([id number]) BP CONTROLLED (<130/80) BP CONTROLLED (<130/80) 1971 - [facility] 1971 ([id number]) HEPATITIS C SCREENING HEPATITIS C SCREENING 1971 - [facility] 1971 ([id number]) Patient education no information [facility] Surgical [facility] ([id number] 1) no information [facility] (80224) Immunizations Vaccine Notes Status Date Location Tdap (Age 7+) tetanus toxoid, (completed) 01-07-2013 - [facility] linic reduced diphtheria 01-07-2013 (87743) toxoid, and acellular pertussis vaccine, adsorbed Payers Payer Name Policy Number Location MEDICARE [id number] [facility] (44 195) MEDICARE PART A [employer] [id number] [facility] ([place]) (20397) MMO [id number] [facility] (44 195) [employer] ([place]) [id number] [employer] ([place] (85355) [id number] [employer] [facility] [place] (03928) [id number] [employer] [place] [place] (78719) [id number] [employer] [facility] [place] (76078) The following information is from the original human readable contentNo Payer Records FoundNo Payer Records FoundNo Payer Records Found Social History Type Social History Date Location Description Tobacco smoking status Never smoker 01-22-2020 - [facility] NHIS 07-24-2020 ([id number]) Tobacco use and Never used 01-22-2020 - [facility] exposure 07-24-2020 ([id number]) Alcohol intake Current non-drinker of 01-22-2020 [facility] alcohol (finding) 07-24-2020 (13376) Sex Assigned At Not on file [facility] (34393) The following information is from the original human readable contentNo Social History Records FoundNo Social History Records FoundNo Social History Records FoundNo Social History Records FoundNo Social History Records Found Summary Purpose Family History No Family History Records FoundNo Family History Records FoundNo Family History Records Found Advance Directives No Advanced Directives Records Found Documents on File Type Date 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 Andrade Routine gynecological examination 04/29/20102011 Overview: [facility], [facility] [place] Uterine prolapse without mention of vaginal wall prolapse 01/23/2012 Problem Noted Date Resolved Date Routine general medical examination at a [facility] 010 01/23/2012 facility Overview: 04/29/2010, from Dr. Andrade Routine gynecological examination 04/29/20102011 Overview: [facility], [facility] [place] Uterine prolapse without mention of vaginal wall prolapse 01/23/2012 Problem Noted Date Resolved Date Routine general medical examination at a [facility] 010 01/23/2012 facility Overview: 04/29/2010, from Dr. Andrade Routine gynecological examination 04/29/20102011 Overview: [facility], [facility] [place] Uterine prolapse without mention of vaginal wall [...] significant for invasive ductal carcinoma,nuclear grade 2. ER/FL both >95%. Moderate ER and strong FL. HER2 2+. Non-amplified by FISH. ?? 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 Oncotype Dx-Recurrence score of 18. S/p lumpectomy along with sentinel lymph node biopsy on 09/07/2016. S/p radiation-Dr. Albert office. - ?No concerning findings on exam. - ?Arimidex-tolerating well overall-had arthritis prior to AI. - Reviewed mammogram with pt. - ?B/l?Mammogram due March 2021. Pt. has this done at [facility]. - ?Follow up in 6 months. - ?Pt. aware to call office with any questions/concerns. ? ? The patient indicates understanding of these issues and agrees with the plan. ? All documentation from previous visit of 01/22/20-Dr. Jones/myself was copied and pasted, documentation has been reviewed and edited as necessary for today's visit. ? ? Sariah Palacios APRN.[employer] OPER[employer] ENGINEER documented in this encounterVanesa Serrano) - 07/24/2020 [...] BE BASED ON THE PRIMARY CLINICAL RECORDS. [facility] provides no warranty or guarantee of the accuracy or completeness of information in this document. UNRECOGNIZED CONTENT PROVIDED BELOW FOR UNRECOGNIZED SECTION INFORMATION SOURCE DATE CREATED AUTHOR AUTHOR'S ORGANIZATIO N 05/09/2018 [facility] DATE CREATED AUTHOR AUTHOR'S ORGANIZATIO N 11/20/2018 [facility] ([place] DATE CREATED AUTHOR AUTHOR'S ORGANIZATIO N 07/25/2020 [facility] UNRECOGNIZED CONTENT PROVIDED BELOW FOR UNRECOGNIZED SECTION Source Comments In the event this information is protected by the Federal Confidentiality of Alcohol and Drug Abuse Patient Records regulations: The Federal rules restrict any use of the information to criminally investigate or prosecute any alcohol or drug abuse patient.[facility] the event this information is protected by the Federal Confidentiality of Alcohol and Drug Abuse Patient Records regulations: The Federal rules restrict any use of the information to criminally investigate or prosecute any alcohol or drug abuse patient.[facility] the event this information is protected by the Federal Confidentiality of Alcohol and Drug Abuse Patient Records regulations: The Federal rules restrict any use of the information to criminally investigate or prosecute any alcohol or drug abuse patient.[facility] UNRECOGNIZED CONTENT PROVIDED BELOW FOR UNRECOGNIZED SECTION Reason for Visit Reason Onset Date Comments Refill Request 07/01/2020 Reason Comments Established Patient UNRECOGNIZED CONTENT PROVIDED BELOW FOR UNRECOGNIZED SECTION Miscellaneous Notes Telephone Encounter - Michelle Hale - 07/01/2020 9:45 AM EDTPatient called requesting refill on Anastrozole 1mg Please call [phone] Thank you Michelle Shelby documented in this encounter UNRECOGNIZED CONTENT PROVIDED BELOW FOR UNRECOGNIZED SECTION Nursing Notes Mariluz Archer LPN - 07/24/2020 8:35 AM EDTEst patient. Six month OV. Mariluz Archer LPN documented in this encounter
== END ==
PROVIDERS: PCP Family Medicine; Visit Provider Nurse Practitioner
DX: C50.412 Malignant neoplasm of upper-outer quadrant of left female breast (principal); Z17.0 Estrogen receptor positive status [ER+]; R92.8 Other abnormal and inconclusive findings on diagnostic imaging of breast
CPT/HCPCS: 77066

== ENCOUNTER → 2020-08-21 14:32 | Outpatient (CLI) | payer MEDICARE, OTHER, SELFPAY ==
[2020-08-21 17:18] LABS: Absolute Lymphocyte Count 1.59 X10^3/uL (0.83-4.51); Absolute Neutrophil Count 2.9 X10^3/uL (2.0-7.7); Basophil# 0.01 X10^3/uL; Basophil% 0.2 % (0-1); Eosinophil# 0.25 X10^3/uL; Eosinophils% 4.7 % (0-5); Hematocrit 38.7 % (37-47); Hemoglobin 12.3 g/dL (12.0-15.0); Lymphocyte # 1.59 X10^3/ul (4.0); Lymphocyte % 30.2 % (19-41); Mean Corp Hgb Conc 31.8 g/dL (32-36); Mean Corpuscular Hgb 29.2 pg (27.0-32.0); Mean Corpuscular Volume 91.9 fL (81-99); Mean Platelet Vol. 9.8 fl (6.2-12.0); Monocyte# 0.51 X10^3/uL; Monocyte% 9.7 % (0-10); NRBC Flagged by Analyzer 0 % (0-5); Platelet Count 270 K/mm3 (150-450); RBC Distribution Width CV 14.4 % (11.6-14.6); RBC Distribution Width SD 48.6 fl (35.1-43.9); Red Blood Count 4.21 M/mm3 (4.2-5.4); White Blood Count 5.3 K/mm3 (4.4-11.0)
[2020-08-21 17:27] LABS: Iron 82 ug/dL (50-170)
== END ==
PROVIDERS: PCP Family Medicine; Visit Provider Family Medicine
DX: D50.9 Iron deficiency anemia, unspecified (principal); K92.1 Melena
CPT/HCPCS: 36415; 83540; 85025

== ENCOUNTER 2021-02-26 14:35 | Emergency (ER) | payer MEDICARE, OTHER, SELFPAY ==
[2021-02-26] VITALS (9 sets, daily range): BP systolic 122–169; BP diastolic 04–97; PULSE 67–96; RESP 14–15; TEMP 36; O2SAT 96–98; BMI 40.5
--- NOTE | 2021-02-26 14:50 | EKG12_ITS ---
Test Reason : CHEST PAIN Blood Pressure : / mmHG Vent. Rate : 094 BPM Atrial Rate : 094 BPM P-R Int : 134 ms QRS Dur : 092 ms QT Int : 376 ms P-R-T Axes : 068 -05 033 degrees QTc Int : 470 ms Sinus rhythm with frequent Premature ventricular complexes Otherwise normal ECG Confirmed by KRYSTIAN HODGE, YAMINI ([id number]), script editor DAGOBERTO WISDOM ([id number]) on 03/02/2021 9:17:11 AM Referred By: LOURDES Confirmed By:PALOMA BOLAND MD
--- NOTE | 2021-02-26 14:51 | ED.DCSUM_ITS ---
History of Present Illness Chief Complaint: Chest Pain Informant: Patient Onset: Days - 3 Narrative: Presents with persistent chest heaviness for the past 3 days. Wax and wanes. Intermittent pain in her jaw across the right side of her chest. Chronic dyspnea. Denies cough. Denies tobacco history. Family history grandmother of heart attack at 78. History of hypertension prediabetes in the past. She is seen Dr. Lozano with a stress test a few years ago. No history of heart cath. Reports increasing stress prior to symptoms starting due to her daughter significant other threatening the family and currently being deported. Took a full dose aspirin today prior to arrival. She states she called the [facility] nursing line who told her to go to the ED. History of breast cancer with radiation in the past. Prior similar symptoms: No Past Medical History - Allergies and Home Meds Allergies/Adverse Reactions: Allergies codeine Adverse Reaction (Verified 02/26/21 14:38) N/V AND MAKES HER FEEL REALLY SICK hydrocodone [From Vicodin] Adverse Reaction (Verified 02/26/21 14:38) N/V AND MAKES HER FEEL REALLY SICK Primary Care Physician: Mejia Lozano MD [STAFF PHYSICIAN] - 3-5 Days Brandt Yang MD [NON-STAFF] - Past Medical History: - - Hypertension, prediabetes, breast cancer Smoking Status: Never smoker Review of Systems General: Denies: Chills, Fever, Sweats Eyes: Denies: Visual changes - bilaterally, Diplopia ENT: Denies: Rhinorrhea, Sore throat Cardiovascular: Reports: Chest pain. Denies: Palpitations Respiratory: Reports: Dyspnea. Denies: Cough, Dyspnea on exertion Gastrointestinal: Denies: Abdominal pain, Nausea, Vomiting, Diarrhea, Melena, Hematochezia Genitourinary: Denies: Dysuria, Hematuria, Frequency Musculoskeletal: Denies: Back pain, Extremity Pain Skin: Denies: Rash, Wounds Neurological: Denies: Headache, Weakness, Numbness Physical Exam Vital Signs/Narrative: Vital Signs Temp Pulse Resp BP Pulse Ox 02/26/21 14:36 96.8 F L 67 15 169/04 H 97 Inital Vital Signs reviewed: Yes General: Well nourished, Well developed, No Acute Distress Head: Normocephalic, Atraumatic Eyes: Perrl, EOMI ENT: Moist mucous membranes, No rhinorrhea Neck: Supple, Nontender Cardiovascular: Regular rate, Regular rhythm, No murmurs Respiratory: No distress, CTA bilaterally, Chest nontender Abdomen: Soft, Nontender, Nondistended, Normal bowel sounds Back: Nontender, Normal Inspection, - - Healed midline back scar down the whole spine. Extremities: Nontender, No edema Skin: Normal color, No rash Neurological: Alert, Oriented x3, Cranial nerves II-XII grossly intact, Normal Strength, Normal Sensation Psychological: Normal affect, Normal Mood Diagnostic/Tx/Re-eval Chest X-Ray - ED: 1 View, Read by ED Physician, No Acute Disease Clinical Impression(s) from Imaging Studies Chest X-Ray 02/26/21 14:52 IMPRESSION: Borderline cardiomegaly. Electronically Signed: Rancho Lyles MD at 15:17 EDT , Service support , Abnormal Lab Results 02/26/21 02/26/21 02/26/21 14:50 14:50 14:50 WBC 7.5 RBC 4.24 Hgb 12.1 Hct 38.4 MCV 90.6 MCH 28.5 MCHC 31.5 L RDW Std Deviation 46.6 H RDW Coeff of Tj 14.1 Plt Count 254 MPV 9.1 Immature Gran % (Auto) 0.100 Neut % (Auto) 54.8 Lymph % (Auto) 33.8 [place] % (Auto) 7.2 Eos % (Auto) 3.7 Baso % (Auto) 0.4 Absolute Neuts (auto) 4.1 Absolute Lymphs (auto) 2.53 Nucleated RBC % 0 PT 13.2 INR 1.1 APTT 22.0 L Sodium 139 Potassium 3.5 Chloride 102 Carbon Dioxide 32.0 Anion Gap 5 BUN 14 Creatinine 0.89 Estim Creat Clear Calc 52.97 Est GFR (MDRD) Af Amer 81 Est GFR (MDRD) Non-Af 67 BUN/Creatinine Ratio 15.7 Glucose 115 H Calcium 9.1 Troponin I < 0.015 - EKG Initial EKG Interpretation: Sinus Rhythm - Sinus rhythm 94, no ST changes, trigeminal PVCs noted, no T wave changes. - Medical Decision Making Patient EKG sinus trigeminal PVCs, see denies feeling any the symptoms. She took her full dose aspirin today. Cardiac work-up negative, she was given 3 nitros, states symptoms significantly subsided. Patient's heart score is a 3. Discussed heart pathway guideline with the patient with 2% risk at this time. She did agree to stay for a 3-hour repeat troponin for further evaluation. 1814: Repeat troponin negative. Patient symptoms currently improved. She will follow-up with Dr. Lozano, with strict return precautions. ED Disposition - Plan for ED Patient: Disposition: Home or Assisted Living Diagnosis: Chest pain Instructions: ED Chest Pain, Uncertain Cause Referrals: Brandt Yang MD [NON-STAFF] - Mejia Lozano MD [STAFF PHYSICIAN] - 3-5 Days
--- NOTE | 2021-02-26 14:52 | RAD_ITS ---
STUDY: X-RAY CHEST REASON FOR EXAM: Female, 65 years old. Chest pain TECHNIQUE: Single AP portable view of the chest. COMPARISON: Comparison is made with prior study dated 06/03/2020. FINDINGS: Surgical clips are seen in the left axillary region. EKG electrodes are seen. The lungs are clear and expanded. There is no demonstrated pleural abnormality. There is borderline cardiomegaly. Normal mediastinum and sona. Normal visualized pulmonary arteries. Normal visualized aortic arch and descending thoracic aorta. Prior sclerotic fixation in the lower dorsal and upper lumbar spine. Normal visualized ribs, clavicles, and shoulders. There is no demonstrated abnormality of the visualized soft tissue structures of the upper abdomen. RAD/Chest 1 View (Portable) IMPRESSION: Borderline cardiomegaly. Electronically Signed: Rancho Lyles MD at 15:17 EDT , Service support ,
[2021-02-26 15:08] LABS: Absolute Lymphocyte Count 2.53 X10^3/uL (0.83-4.51); Absolute Neutrophil Count 4.1 X10^3/uL (2.0-7.7); Basophil# 0.03 X10^3/uL; Basophil% 0.4 % (0-1); Eosinophil# 0.28 X10^3/uL; Eosinophils% 3.7 % (0-5); Hematocrit 38.4 % (37-47); Hemoglobin 12.1 g/dL (12.0-15.0); Lymphocyte # 2.53 X10^3/ul (0.83-4.51); Lymphocyte % 33.8 % (19-41); Mean Corp Hgb Conc 31.5 g/dL (32-36); Mean Corpuscular Hgb 28.5 pg (27.0-32.0); Mean Corpuscular Volume 90.6 fL (81-99); Mean Platelet Vol. 9.1 fl (6.2-12.0); Monocyte# 0.54 X10^3/uL; Monocyte% 7.2 % (0-10); NRBC Flagged by Analyzer 0 % (0-5); Neutrophil % 54.8 % (47-70); Platelet Count 254 K/mm3 (150-450); RBC Distribution Width CV 14.1 % (11.6-14.6); RBC Distribution Width SD 46.6 fl (35.1-43.9); Red Blood Count 4.24 M/mm3 (4.2-5.4); White Blood Count 7.5 K/mm3 (4.4-11.0)
[2021-02-26] MEDS: Nitroglycerin SL (ED/IMG/CATH) 0.4 MG TABLET SL ×3 (15:21→15:33)
[2021-02-26 15:24] LABS: Anion Gap 5 (5-15); BUN 14 mg/dL (7-18); BUN/Creat Ratio 15.7 RATIO (10-20); Calcium,Total 9.1 mg/dL (8.5-10.1); Chloride 102 mmol/L (98-107); Creatinine, Serum 0.89 mg/dL (0.55-1.02); EST Glomerular Filtration Rate 67 mL/min (>60); Est Glom Filt Rate - Afr Amer 81 mL/min (>60); Estimated Creatinine Clearance 52.97 ml/min; Glucose 115 mg/dL (74-106); Potassium 3.5 mmol/L (3.5-5.1); Sodium Level 139 mmol/L (136-145)
[2021-02-26 15:46] LABS: International Normalized Ratio 1.1; Prothrombin Time (Protime)PT. 13.2 SECONDS (11.7-14.9)
== END 2021-02-26 18:39 | disposition home or self-care (01) ==
PROVIDERS: Emergency Provider Emergency Medicine; PCP Registered Nurse
DX: R07.89 Other chest pain (principal); R06.00 Dyspnea, unspecified; I49.3 Ventricular premature depolarization; I10 Essential (primary) hypertension; Z85.3 Personal history of malignant neoplasm of breast; Z92.3 Personal history of irradiation; Z79.899 Other long term (current) drug therapy
CPT/HCPCS: 71045; 80048; 84484; 85025; 85610; 85730; 93005; 99285; A4216

== ENCOUNTER → 2021-03-23 06:33 | Outpatient (CLI) | payer MEDICARE, OTHER, SELFPAY ==
[2021-03-04 14:54] VITALS: BMI 40.5
--- NOTE | 2021-03-23 06:35 | ECHOD_ITS ---
Reason For Study: ARRHYTHMIA Procedure This was a 2D Doppler, Color Flow transthoracic echocardiogram. Myocardial strain analysis was performed in this exam to aid in the assessment of cardiac function. The exam was of adequate technical quality. Exam performed in department. Left Ventricle Normal LV size. Left ventricular systolic function is normal. The estimated ejection fraction is 60 %. The global longitudinal strain = -21 % (normal). No evidence for diastolic dysfunction. No regional wall motion abnormalities noted. Right Ventricle Normal RV size. Normal systolic function. Atria The left atrium is mildly enlarged. Normal right atrium. No doppler evidence for ASD. Mitral Valve There is no mitral annular calcification. Normal mitral valve. Trivial mitral valve insufficiency. Tricuspid Valve Normal tricuspid valve. Trivial tricuspid valve insufficiency. Right ventricular systolic pressure estimated to be 33 mmHg. Aortic Valve Trisinus/trileaflet aortic valve. Normal aortic valve. Pulmonic Valve The pulmonic valve is not well visualized. Trivial pulmonic valve insufficiency. Great Vessels Normal sized aortic root. Pericardium/Pleural No pericardial effusion. MMode/2D Measurements & Calculations LVIDd: 5.4 cm IVSd: 0.83 cm Ao root diam: 3.1 cm LVIDs: 3.6 cm LVPWd: 0.96 cm RVDd: 3.1 cm FS: 33.7 % LAV(MOD-bp): 53.2 ml LVAd ap4: 29.5 cm2 SV(MOD-sp4): 52.9 ml LAV(MOD-bp) Indexed: 25.4 ml/m2 LVLd ap4: 7.7 cm LAV(MOD-sp2): 47.2 ml EDV(MOD-sp4): 92.3 ml LAV(MOD-sp4): 52.9 ml EDV(sp4-el): 95.9 ml LVAs ap4: 17.7 cm2 LVLs ap4: 6.8 cm ESV(MOD-sp4): 39.4 ml ESV(sp4-el): 38.8 ml EF(MOD-sp4): 57.4 % EF(sp4-el): 59.6 % SV(sp4-el): 57.2 ml LA A4 area: 19.7 cm2 LA dimension(2D): 4.5 cm RA A4 area: 15.4 cm2 Time Measurements MV dec time: 0.17 sec Doppler Measurements & Calculations MV E max asaf: 77.5 cm/sec Lat Peak E' Asaf: 10.1 cm/sec Med Peak E' Asaf: 10.5 cm/sec MV A max asaf: 106.3 cm/sec E/E' lat: 7.6 E/E' med: 7.4 MV E/A: 0.73 Ao V2 max: 168.6 cm/sec LV V1 max: 139.4 cm/sec PA V2 max: 127.2 cm/sec Ao max P.4 mmHg LV V1 max P.9 mmHg TR max asaf: 273.9 cm/sec TR max P.0 mmHg ECHO/Echo Complete Interpretation Summary Left ventricular systolic function is normal. The estimated ejection fraction is 60 %. The global longitudinal strain = -21 % (normal). The left atrium is mildly enlarged. Trivial mitral valve insufficiency. Trivial tricuspid valve insufficiency. Trivial pulmonic valve insufficiency. Right ventricular systolic pressure estimated to be 33 mmHg. No evidence for diastolic dysfunction. Ordering Physician: Mack Ruff Referring Physician: MILLI FOX Performed By: Chichi Marvin RDCS
--- NOTE | 2021-03-23 09:07 | STRESSREP_ITS ---
Stress Test Report Date: 03-23-2021 Procedure: Pharmacologic stress nuclear imaging study Indications: Dyspnea on exertion; PVCs Consent: Per the patient Procedure: The patient underwent pharmacologic (Regadenoson 0.4mg ) evaluation with a peak heart rate of 116 beats per minute (75%predicted maximal heart rate) and a peak blood pressure of 124/80 mmHg. The baseline ECG demonstrated sinus rhythm. The peak pharmacologic ECG demonstrated no obvious ECG changes. There was an isolated PAC pretest and occasional PVCs pretest, during infusion, and recovery with an intermittent pattern compatible with ventricular trigeminy. There was no complaint of chest discomfort during pharmacologic infusion or recovery. The examination was discontinued secondary to completion of protocol. Impression: 1. Pharmacologic (Regadenoson) evaluation 2. Peak pharmacologic ECG with no obvious ECG changes. 3. There was an isolated PAC pretest and occasional PVCs pretest, during infusion, and recovery with an intermittent pattern compatible with ventricular trigeminy. 4. Nuclear images pending Myocardial perfusion imaging study: Technique: The patient was injected with 14.5 millicuries of technetium 99m Cardiolite and subsequently rest SPECT Cardiolite nuclear imaging was obtained in the horizontal long, vertical long, and short axis views. The patient underwent pharmacologic (Regadenoson) evaluation with a peak heart rate of 116 beats per minute (75% percent predicted maximal heart rate) and a peak blood pressure of 124/80 mmHg. The patient was injected with 44.3 millicuries of technetium 99m Cardiolite and subsequently stress SPECT Cardiolite nuclear imaging was obtained in the horizontal long, vertical long, and short axis views. A gated Cardiolite study at peak stress was obtained. Interpretation: Rest and stress SPECT Cardiolite nuclear imaging status post realignment, normalization, and attenuation correction demonstrate at rest diminished myocardial perfusion/tracer uptake in portions of the distal anterior, anteroseptal, anteroapical, and septal apical segments which appear to improve and/or normalize following stress. There is end systolic thickening and brightening. The gated Cardiolite study demonstrates myocardial thickening and inward wall motion. The reported LVEF is 66%. Impression: 1. Rest and stress SPECT her nuclear imaging demonstrate myocardial perfusion changes appearing compatible shifting soft tissue attenuation/artifact being more prominent at rest as opposed to stress with no myocardial perfusion changes considered diagnostic for associated stress-induced myocardial ischemia. 2. The gated Cardiolite study reports an LVEF of 66%. This note was generated with [employer] software. It may contain incorrect words, spelling, and punctuation that were not noted in checking the note before signing.
== END ==
PROVIDERS: PCP Registered Nurse; Referring Provider Internal Medicine Cardiovascular Disease; Visit Provider Internal Medicine Cardiovascular Disease
DX: R06.00 Dyspnea, unspecified (principal); I49.3 Ventricular premature depolarization; R07.9 Chest pain, unspecified; I10 Essential (primary) hypertension
CPT/HCPCS: 78452; 93017; 93225; 93226; 93306; A9500; A4216; J2785

== ENCOUNTER 2021-04-26 12:05 | Emergency (ER) | payer MEDICARE, OTHER, SELFPAY ==
[2021-03-04 14:54] VITALS: BMI 40.5
[2021-04-26 12:07] VITALS: BP 151/59; PULSE 98; RESP 18; TEMP 36.6; O2SAT 95; BMI 40.8
[2021-04-26 12:14] VITALS: O2SAT 97
--- NOTE | 2021-04-26 12:26 | RAD_ITS ---
STUDY: X-RAY CHEST REASON FOR EXAM: Female, 65 years old. Cough TECHNIQUE: Single AP portable view of the chest. COMPARISON: Comparison is made with prior study dated 02/26/2021. FINDINGS: EKG electrodes are seen. Surgical clips are seen in the left axillary region. The lungs are clear and expanded. There is no demonstrated pleural abnormality. Normal size heart. Normal mediastinum and sona. Normal visualized pulmonary arteries. There is atherosclerotic tortuosity of the aortic arch and descending thoracic aorta. The patient is status post WALTERS emerson fixation of the lower thoracic and lumbar spine. Minimal levoscoliosis. Normal visualized ribs, clavicles, and shoulders. There is no demonstrated abnormality of the visualized soft tissue structures of the upper abdomen. RAD/Chest 1 View (Portable) IMPRESSION: No acute abnormality is seen. Electronically Signed: Rancho Lyles MD at 12:58 EDT , Service support ,
--- NOTE | 2021-04-26 12:27 | EKG12_ITS ---
Test Reason : SOB Blood Pressure : / mmHG Vent. Rate : 098 BPM Atrial Rate : 098 BPM P-R Int : 160 ms QRS Dur : 092 ms QT Int : 358 ms P-R-T Axes : 066 053 035 degrees QTc Int : 457 ms Sinus rhythm with frequent Premature ventricular complexes Otherwise normal ECG Confirmed by JUDY HODGE, DOMO ([id number]), continuity editor DAGOBERTO WISDOM ([id number]) on 04/29/2021 9:50:45 AM Referred By: Confirmed By:DOMO KIM MD
--- NOTE | 2021-04-26 12:27 | EX.ED.DYSGE1 ---
HPI History of Present Illness Chief Complaint: Shortness of Breath Informant: patient Narrative Narrative: 65-year-old female presents with 3 weeks of cough and shortness of breath. She states that she went to urgent care about 2 weeks ago was given a steroid. She does not know what kind. She returned 2 weeks later and was given an antibiotic but she does not know which one. She states that she had some leg swelling last week so she called her type bar and segment assembler whom she cannot recall and they stopped one of her medicines that she does not know which one. She states that she is having coughing fits and postnasal drip. [facility] Medical History Anemia Anxiety Back pain Breast CA Breast cancer of upper-outer quadrant of left female breast Essential hypertension GERD (gastroesophageal reflux disease) Hiatal hernia History of pulmonary embolus (PE) Osteoarthritis Premature ventricular contraction Scleroderma Spinal stenosis Home Medications lisinopril-hydrochlorothiazide 1 tablet PO DAILY 05/22/17 [History Last Taken 05/22/17 06:00] anastrozole 1 mg PO DAILY 07/20/17 [History Last Taken Unknown] vphyxnaj-fgj-PT-lycopen-lutein 1 each PO DAILY 07/20/17 [History Last Taken Unknown] omeprazole 20 mg PO DAILY 05/01/18 [History Last Taken 07/29/19] clobetasol 0.05 % topical cream 1 applic TOPICAL BID PRN 03/04/21 [History Last Taken Unknown] sertraline 50 mg tablet 50 mg PO DAILY 03/04/21 [History Last Taken Unknown] diltiazem HCl 120 mg capsule,extended release 24 hr 120 mg PO DAILY #30 cap 04/13/21 [Rx Last Taken Unknown] albuterol sulfate [Ventolin HFA] 2 puff INHALATION Q4H PRN PRN #1 inhaler 04/26/21 [Rx Last Taken Unknown] cefuroxime axetil 250 mg PO BID 04/26/21 [History Last Taken Unknown] codeine-guaifenesin 5 - 10 ml PO/SL PRN 04/26/21 [History Last Taken Unknown] doxycycline monohydrate 100 mg PO BID #20 capsule 04/26/21 [Rx Last Taken Unknown] fluticasone propionate 2 spray INTRANASAL DAILY PRN #16 g 04/26/21 [Rx Last Taken Unknown] furosemide [Lasix] 40 mg PO DAILY #7 tab 04/26/21 [Rx Last Taken Unknown] loratadine 10 mg PO DAILY 04/26/21 [History Last Taken Unknown] metoprolol succinate 25 mg PO DAILY 04/26/21 [History Last Taken Unknown] prednisone 60 mg PO DAILY #15 tablet 04/26/21 [Rx Last Taken Unknown] Allergy/AdvReac Type Severity Reaction Status Date / Time codeine AdvReac N/V AND Verified 04/26/21 12:06 MAKES HER FEEL REALLY SICK hydrocodone [From Vicodin] AdvReac N/V AND Verified 04/26/21 12:06 MAKES HER FEEL REALLY SICK Family History Mother Diabetes Kidney disease Father CVA (cerebral vascular accident) Hypertension Sister Thyroid disorder Surgical History History of breast lump/mass excision History of carpal tunnel surgery History of hip replacement Hx of colonoscopy Hx of hysterectomy Hx of surgical amputation of finger Hx of tonsillectomy Previous back surgery S/P lumpectomy, left breast Social History Smoking Status: Unknown if ever smoked second hand exposure: No alcohol intake: never substance use type: does not use caffeine: Yes ROS ROS ED Constitutional Constitutional ED: Denies chills or weight loss Eyes Eyes: Denies change in vision or diplopia ENT ENT ED: Reports rhinorrhea; Denies ear pain or sore throat Cardiovascular Cardiovascular: Reports other Details: Lower extremity edema ; Denies chest pain, orthopnea, palpitations or racing heartbeat Respiratory/Chest Respiratory/Chest: Reports cough, dyspnea, dyspnea on exertion and sputum; Denies orthopnea Gastrointestinal Gastrointestinal: Denies abdominal pain, diarrhea, nausea or vomiting Genitourinary Genitourinary ED: Denies dysuria, hematuria or urinary frequency Musculoskeletal Musculoskeletal: Denies arthralgias or myalgias Integumentary Denies abscess or rash Neurologic Neurologic: Denies headache(s) or weakness Psychiatric Psychiatric: Denies anxiety, depression, suicidal ideation or suicidal thoughts Endocrine Endocrinology: Denies polydipsia, polyphagia or polyuria Allergic/Immunologic Allergic/Immunologic ED: Denies mouth swelling, tongue swelling or urticaria EXAM Physical Exam Const Vital Signs: 04/26/21 12:07 04/26/21 12:14 Temperature 97.8 F Temperature Source Temporal Pulse Rate 98 Respiratory Rate 18 Respiratory Effort Short of Breath Labored Respiratory Depth Shallow Blood Pressure 151/59 H Blood Pressure Mean 89 Pulse Ox 95 Oxygen Delivery Method Room Air Room Air Positive well nourished and well developed General Appearance ED: well developed HEENT Reports normocephalic, head/scalp atraumatic and moist mucous membranes Eyes PERRL and EOMs intact bilaterally Neck no lymphadenopathy, supple and no JVD Resp normal respiratory effort and clear to auscultation bilaterally Cardio regular rate, regular rhythm and no murmurs GI normal to inspection, nondistended, normoactive bowel sounds and non-tender Palpation: soft Back/Spine no CVA tenderness and normal ROM Extremity normal to inspection Extremity Narrative: Bilateral lower extremity edema symmetric General Extremety ED: Yes edema General Extremity: edema Neuro oriented x3 and CN's II-XII intact bilaterally Sensorium / Orientation: alert Motor Exam: strength 5/5 throughout Psych mental status grossly normal Mood & Affect: Negative for depressed or tearful Skin no rashes or lesions noted and no wounds MDM MDM MDM Narrative Medical decision making narrative: My interpretation of the chest x-ray is no acute process. EKG is sinus with PVCs. White count is normal. Troponin and beta natruretic peptide's are normal. I think the patient most likely has a bronchitis. We will write her some Lasix for the lower extremity swelling. I will put her on albuterol MDI and prednisone. The patient was able to get into my chart I see that she was on Ceftin and 20 mg of prednisone x5 days. She is also tried Claritin and Tessalon Perles. She also states that Flonase might be good for her for the postnasal drip. Lab Data Attestation: I reviewed the patient's lab results. Labs: Laboratory Results - last 24 hr 04/26/21 04/26/21 04/26/21 12:30 12:30 12:30 WBC 6.0 RBC 4.23 Hgb 12.1 Hct 37.4 MCV 88.4 MCH 28.6 MCHC 32.4 RDW Std Deviation 46.2 H RDW Coeff of Tj 14.6 Plt Count 242 MPV 9.6 Immature Gran % (Auto) 0.500 Neut % (Auto) 59.1 Lymph % (Auto) 22.9 [place] % (Auto) 13.0 H Eos % (Auto) 4.2 Baso % (Auto) 0.3 Absolute Neuts (auto) 3.5 Absolute Lymphs (auto) 1.37 Nucleated RBC % 0 Sodium 133 L Potassium 4.1 Chloride 95 L Carbon Dioxide 32.0 Anion Gap 6 BUN 10 Creatinine 0.82 Estim Creat Clear Calc 57.49 Est GFR (MDRD) Af Amer 89 Est GFR (MDRD) Non-Af 74 BUN/Creatinine Ratio 12.2 Glucose 124 H Calcium 9.0 Total Bilirubin 0.40 AST 22 ALT 23 Alkaline Phosphatase 85 Troponin I < 0.015 B-Natriuretic Peptide 35.4 Total Protein 7.7 Albumin 3.3 Globulin 4.4 H Albumin/Globulin Ratio 0.8 L Radiography Diagnostic Testing: Radiology Impression Chest X-Ray 04/26/21 12:26 IMPRESSION: No acute abnormality is seen. Electronically Signed: Rancho Lyles MD at 12:58 EDT , Service support , EKG Initial EKG: Attestation: I personally reviewed and interpreted this EKG as follows: Comments: sinus rate of 98 with PVCs Discharge Plan Triage Chief Complaint: Shortness of Breath ED Provider: Abraham Mendoza Dx/Rx/DC Orders Clinical Impression: Bronchitis Instructions: ED Bronchitis with Wheezing (Adult) Prescriptions: New prednisone 20 MG tablet 60 mg PO DAILY Qty: 15 RF: 0 doxycycline monohydrate 100 MG capsule 100 mg PO BID Qty: 20 RF: 0 albuterol sulfate [Ventolin HFA] 1 INHALER inhaler 2 puff inhalation Q4H PRN PRN (Reason: Wheezing) Qty: 1 RF: 0 furosemide [Lasix] 40 mg tablet 40 mg PO DAILY Qty: 7 RF: 0 fluticasone propionate 50 mcg/actuation spray,suspension 2 spray intranasal DAILY PRN (Reason: post nasal drip) Qty: 16 RF: 0 No Action clobetasol 0.05 % cream 1 applic TOPICAL BID PRNRF: 0 sertraline 50 mg tablet 50 mg PO DAILY RF: 0 lisinopril-hydrochlorothiazide 1 TABLET tablet 1 tablet PO DAILY RF: 0 anastrozole 1 MG tablet 1 mg PO DAILY RF: 0 mpuizksf-awa-AS-lycopen-lutein 1 EACH tablet 1 each PO DAILY RF: 0 omeprazole 20 MG capsule,delayed release(DR/EC) 20 mg PO DAILY RF: 0 cefuroxime axetil 250 mg tablet 250 mg PO BID RF: 0 metoprolol succinate 25 mg tablet extended release 24 hr 25 mg PO DAILY RF: 0 loratadine 10 mg tablet 10 mg PO DAILY RF: 0 codeine-guaifenesin 5 - 10 ml PO/SL PRN (Reason: Cough) RF: 0 diltiazem HCl 120 mg capsule,extended release 24hr 120 mg PO DAILY Qty: 30 RF: 11 Hold Instructions: leg edema Primary Care Provider: Beverly Colunga NP Referrals: Beverly Colunga NP, [employer] [Primary Care Provider] -
[2021-04-26 12:46] LABS: Absolute Lymphocyte Count 1.37 X10^3/uL (0.83-4.51); Absolute Neutrophil Count 3.5 X10^3/uL (2.0-7.7); Basophil# 0.02 X10^3/uL; Basophil% 0.3 % (0-1); Eosinophil# 0.25 X10^3/uL; Eosinophils% 4.2 % (0-5); Hematocrit 37.4 % (37-47); Hemoglobin 12.1 g/dL (12.0-15.0); Lymphocyte # 1.37 X10^3/ul (0.83-4.51); Lymphocyte % 22.9 % (19-41); Mean Corp Hgb Conc 32.4 g/dL (32-36); Mean Corpuscular Hgb 28.6 pg (27.0-32.0); Mean Corpuscular Volume 88.4 fL (81-99); Mean Platelet Vol. 9.6 fl (6.2-12.0); Monocyte# 0.78 X10^3/uL; NRBC Flagged by Analyzer 0 % (0-5); Neutrophil # 3.54 X10^3/uL (2.7-7.7); Neutrophil % 59.1 % (47-70); Platelet Count 242 K/mm3 (150-450); RBC Distribution Width CV 14.6 % (11.6-14.6); RBC Distribution Width SD 46.2 fl (35.1-43.9); Red Blood Count 4.23 M/mm3 (4.2-5.4)
[2021-04-26 13:04] LABS: ALB/GLOB Ratio 0.8 RATIO (0.9-2.4); AST(SGOT) 22 U/L (15-37); Alanine Aminotransfer ALT/SGPT 23 U/L (13-56); Albumin, Serum 3.3 g/dL (3.2-5.0); Alkaline Phosphatase 85 U/L (45-117); Anion Gap 6 (5-15); BUN 10 mg/dL (7-18); BUN/Creat Ratio 12.2 RATIO (10-20); Chloride 95 mmol/L (98-107); Creatinine, Serum 0.82 mg/dL (0.55-1.02); EST Glomerular Filtration Rate 74 mL/min (>60); Est Glom Filt Rate - Afr Amer 89 mL/min (>60); Estimated Creatinine Clearance 57.49 ml/min; Globulin 4.4 g/dL (2.2-4.2); Glucose 124 mg/dL (74-106); Potassium 4.1 mmol/L (3.5-5.1); Protein, Total 7.7 g/dL (6.4-8.2); Sodium Level 133 mmol/L (136-145)
[2021-04-26 13:05] LABS: BNP,B-Type NATRIURETIC PEPTIDE 35.4 pg/mL (0-100)
[2021-04-26 13:36] VITALS: O2SAT 97
[2021-04-26 14:15] VITALS: BP 129/67; PULSE 70; RESP 22; O2SAT 96
== END 2021-04-26 14:22 | disposition home or self-care (01) ==
LOC: ED 12:46
PROVIDERS: Emergency Provider Emergency Medicine; PCP Registered Nurse
DX: J40 Bronchitis, not specified as acute or chronic (principal); F41.9 Anxiety disorder, unspecified; I10 Essential (primary) hypertension; K21.9 Gastro-esophageal reflux disease without esophagitis; M19.90 Unspecified osteoarthritis, unspecified site; Z79.899 Other long term (current) drug therapy
CPT/HCPCS: 71045; 80053; 83880; 84484; 85025; 93005; 99284; A4216

== ENCOUNTER → 2021-04-29 09:41 | Outpatient (CLI) | payer MEDICARE, OTHER, SELFPAY ==
[2021-04-26 12:07] VITALS: BMI 40.8
--- NOTE | 2021-04-29 09:44 | BI_ITS ---
MAMMOGRAPHY - BILATERAL SCREENING REASON FOR EXAM: Female, 65 years old. Routine annual screening examination. PERTINENT HISTORY: Personal history of breast cancer. Prior left lumpectomy and radiation treatment. TECHNIQUE: Digital bilateral breast dru (3D mammographic acquisition) in the CC and MLO projections. 2-D mediolateral oblique (MLO) and craniocaudad (CC) views of both breasts were obtained. CAD: Full Field Digital Mammography with Computer Added Detection was performed. COMPARISON: Comparison is made with prior study dated 04/08/2020 and 03/29/2019. FINDINGS: Breast Composition: The breasts are heterogeneously dense, which may obscure small masses. There are no dominant masses or suspicious calcifications. Surgical clips are seen in the axillary region of the left breast. Stable architectural distortion in the upper outer aspect of the left breast in keeping with prior lumpectomy. No other significant abnormalities are identified. There has been no significant change since the prior study. BI/SCRN MAMM (CAD)W/DRU BILAT IMPRESSION: Stable bilateral screening mammogram. Yearly follow-up mammogram recommended. (A) ASSESSMENT CATEGORY: BIRADS Category 2: Benign. A letter regarding these results will be sent to the patient by the facility within 30 days. Approximately 10% of breast cancers are not detected by mammography. A normal mammogram should not delay biopsy of a clinically suspicious abnormality. [id number] Electronically Signed: Rancho Lyles MD at 11:16 EDT , Service support ,
== END ==
PROVIDERS: PCP Registered Nurse; Referring Provider Nurse Practitioner; Visit Provider Nurse Practitioner
DX: Z12.31 Encounter for screening mammogram for malignant neoplasm of breast (principal); C50.412 Malignant neoplasm of upper-outer quadrant of left female breast; Z17.0 Estrogen receptor positive status [ER+]
CPT/HCPCS: 77063; 77067

== ENCOUNTER 2022-03-01 08:16 | Outpatient (CLI) | payer MEDICARE, OTHER, SELFPAY ==
--- NOTE | 2022-03-01 08:19 | CT_ITS ---
EXAM: CT RIGHT UPPER EXTREMITY WITHOUT INTRAVENOUS CONTRAST, SHOULDER CLINICAL INDICATION: OSTEOARTHRITIS TECHNIQUE: Helically acquired images were obtained of the right shoulder without intravenous contrast. 2-D reformats were performed by the technologist. This CT exam was performed using one or more of the following dose reduction techniques: automated exposure control, adjustment of the mA and/or kV according to patient size, and/or use of iterative reconstruction technique. This report was created using [employer] report generation technology. RADIATION DOSE: CTDIvol = 31.57 mGy, DLP = 635.17 mGy-cm COMPARISON: None. FINDINGS: BONES/JOINTS: Degenerative findings of the right shoulder. Degenerative findings of the AC joint. No acute fracture. No subluxation. Normal alignment. SOFT TISSUES: Unremarkable. No soft tissue swelling or gas. No radiopaque foreign body. CT/Extremity Upper without Contra IMPRESSION: Degenerative findings of the right shoulder. Electronically Signed: Gino Pierson MD at 17:24 EDT Reading Location ID and State: [facility] / [place] , Service support ,
== END 2022-03-01 23:59 | disposition home or self-care (01) ==
LOC: CT 08:17
PROVIDERS: PCP Registered Nurse; Referring Provider Specialist; Visit Provider Specialist
DX: M19.011 Primary osteoarthritis, right shoulder (principal)
CPT/HCPCS: 73200

== ENCOUNTER → 2022-03-07 | Outpatient (CLI) | payer MEDICARE, OTHER, SELFPAY ==
--- NOTE | 2022-03-07 12:43 | ECHOD_ITS ---
Reason For Study: Arrhythmia Procedure This was a 2D Doppler, Color Flow transthoracic echocardiogram. Technically difficult study, patient in pain with back spasms and right shoulder pain. Breathing techniques and multiple positions were used to obtain best images today. Exam performed in department. Left Ventricle Normal LV size. Left ventricular systolic function is normal. The estimated ejection fraction is 65 %. Diastolic function is indeterminate. No regional wall motion abnormalities noted. Right Ventricle Normal RV size. Normal systolic function. Atria The left atrium is mildly enlarged. Normal right atrium. No doppler evidence for ASD. Mitral Valve There is no mitral annular calcification. Normal mitral valve. Trivial mitral valve insufficiency. Tricuspid Valve Normal tricuspid valve. Trivial tricuspid valve insufficiency. Unable to estimate RV systolic pressure due to insufficient tricuspid regurgitant envelope. Aortic Valve Trisinus/trileaflet aortic valve. Normal aortic valve. Pulmonic Valve The pulmonic valve is not well visualized. Great Vessels Normal sized aortic root. Pericardium/Pleural No pericardial effusion. MMode/2D Measurements & Calculations LVIDd: 5.3 cm IVSd: 1.0 cm Ao root diam: 3.4 cm LVIDs: 3.6 cm LVPWd: 0.95 cm LA dimension: 4.8 cm FS: 32.7 % LAV(MOD-bp): 61.9 ml LA A4 area: 19.8 cm2 RA A4 area: 14.4 cm2 LAV(MOD-bp) Indexed: 29.8 ml/m2 LAV(MOD-sp2): 56.8 ml LAV(MOD-sp4): 62.4 ml Time Measurements MV dec time: 0.16 sec Doppler Measurements & Calculations MV E max asaf: 71.7 cm/sec Lat Peak E' Asaf: 7.7 cm/sec Med Peak E' Asaf: 9.4 cm/sec MV A max asaf: 111.1 cm/sec E/E' lat: 9.3 E/E' med: 7.7 MV E/A: 0.65 MV V2 max: 110.2 cm/sec MV P1/2t max asaf: 83.8 cm/sec Ao V2 max: 167.5 cm/sec MV max P.9 mmHg MV P1/2t: 82.4 msec Ao max P.2 mmHg MV V2 mean: 60.5 cm/sec MV dec slope: 297.9 cm/sec2 MV mean P.7 mmHg MVA(P1/2t): 2.7 cm2 MV V2 VTI: 24.8 cm LV V1 max: 129.2 cm/sec PA V2 max: 123.1 cm/sec LV V1 max P.7 mmHg ECHO/Echo Complete Interpretation Summary Left ventricular systolic function is normal. The estimated ejection fraction is 65 %. The left atrium is mildly enlarged. Trivial mitral valve insufficiency. Trivial tricuspid valve insufficiency. Unable to estimate RV systolic pressure due to insufficient tricuspid regurgita nt envelope. Diastolic function is indeterminate. Ordering Physician: Mack Ruff Referring Physician: Beverly Colunga Performed By: Osmar Warner RCS
== END | disposition home or self-care (01) ==
LOC: CVS 12:42
PROVIDERS: PCP Registered Nurse; Referring Provider Internal Medicine Cardiovascular Disease; Visit Provider Internal Medicine Cardiovascular Disease
DX: I49.3 Ventricular premature depolarization (principal)
CPT/HCPCS: 93306

== ENCOUNTER → 2022-05-02 | Outpatient (CLI) | payer MEDICARE, OTHER, SELFPAY ==
--- NOTE | 2022-05-02 10:41 | BI_ITS ---
MAMMOGRAPHY - BILATERAL SCREENING REASON FOR EXAM: Female, 66 years old. Routine annual screening examination. PERTINENT HISTORY: Personal history of breast cancer. Prior left lumpectomy and radiation treatment. Currently on TAMOXIFEN. TECHNIQUE: Digital bilateral breast dru (3D mammographic acquisition) in the CC and MLO projections. 2-D mediolateral oblique (MLO) and craniocaudad (CC) views of both breasts were obtained. CAD: Full Field Digital Mammography with Computer Added Detection was performed. COMPARISON: 04/29/2021, 04/08/2020, 03/27/2020, 03/29/2019, 03/28/2018. FINDINGS: Breast Composition: The breasts are heterogeneously dense, which may obscure small masses. An area of focal asymmetry in the right lower inner breast, anterior depth, approximately 4 cm posterior to the nipple demonstrates slightly more architectural distortion on 3-D dru synthesis than on prior studies. Further assessment with spot compression views and ultrasound is recommended. Stable area of architectural distortion in the left breast associated with prior lumpectomy. Stable surgical clips in left axilla. No other significant abnormalities are identified. BI/SCRN MAMM (CAD)W/DRU BILAT IMPRESSION: Further imaging evaluation recommended, as described above. (E) Recall Side: Right Breast ASSESSMENT CATEGORY: BIRADS Category 0: Incomplete. Need additional imaging evaluation. A letter regarding these results will be sent to the patient by the facility within 30 days. Approximately 10% of breast cancers are not detected by mammography. A normal mammogram should not delay biopsy of a clinically suspicious abnormality. [id number] Electronically Signed: Byron Antoine, at 16:25 EDT ,
== END | disposition home or self-care (01) ==
LOC: OPBI 10:39
PROVIDERS: PCP Registered Nurse; Visit Provider Nurse Practitioner
DX: Z12.31 Encounter for screening mammogram for malignant neoplasm of breast (principal)
CPT/HCPCS: 77063; 77067

== ENCOUNTER 2022-05-04 13:18 | Observation (INO) | payer MEDICARE, OTHER, SELFPAY ==
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
[2022-04-21 10:56] LABS: Magnesium 2.1 mg/dL (1.6-2.6)
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
[2022-05-04] VITALS (16 sets, daily range): BP systolic 145–188; BP diastolic 63–95; PULSE 58–85; RESP 14–18; TEMP 36.1–36.8; O2SAT 91–99; BMI 42.4
--- NOTE | 2022-05-04 | SHO_PTH ---
PATIENT: CR YANG LOC: MS3 U#:[id number] AGE/SX: 66/F [place] [facility] [place]: Dr. Jb Nails MD : 1955 BED: 1 DIS: 05/05/2022 SPEC #: [id number] RECD: 05/04/22 12:55 STATUS: ANGEL RENixon #: [id number] ANGELA: 05/04/22 00:[address]: Jb Nails DEPT: SURGICAL PATHOLOGY RECD BY: Robert Escobar ENTERED: 05/04/22 12:56 SP TYPE: HUMERUS OTHR DR: Beverly Colunga, RACHEL-Shubham Tissues: Humerus, NOS Procedures: Decalcification bone/plaque Surgery Specimen Level IV HEADER OPERATION: ERAS, total shoulder replacement, reverse PRE-OP DIAGNOSIS: Grade 4 osteoarthritis right shoulder TISSUE SUBMITTED: Humeral head MICROSCOPIC DIAGNOSIS Humeral head, total shoulder replacement/resection: Humeral head with degenerative osteoarthritic changes. SJ:rissa 05/06/2022 MICROSCOPIC DESCRIPTION Slides are reviewed. GROSS DESCRIPTION Received is one container labeled with the patient's name and designated humeral head. The specimen consists of a humeral head measuring 4.5 x 4.5 x 2 cm. The articular surface shows areas of erosion, eburnation and osteophyte formation. No soft tissue is identified. Geriatric Aide sections are submitted in one cassette after decalcification. / GIO:rissa 05/04/2022 TC:5 [facility]: [id number]
[2022-05-04 06:56] LABS: Bedside Glucose 107 mg/dL (74-106)
--- NOTE | 2022-05-04 06:59 | PCM.OPRPT ---
Report of Operation Date of Procedure: 05/04/22 Pre-Operative Diagnosis: Right shoulder osteoarthritis with rotator cuff dysfunction Post-Operative Diagnosis: Right shoulder osteoarthritis with rotator cuff dysfunction Surgery/Procedure Performed:: Right reverse total shoulder replacement Description of Surgical Findings:: Stable shoulder Surgeon: Jb Nails engineering patternmaker: Mavis Paez Type of Anesthesia: General Anesthesiologist: Misael Stanford Special Medications: 2 g Ancef, 1 g TXA at incision, 1 g TXA closure, 10 mg Decadron, vancomycin at incision. Specimen's removed: Bony cuts Estimated Blood Loss (mL): 200 Fluids Replaced: 1000 mL crystalloid Description of Procedure: Components used 1. Superior reunion glenoid baseplate 2. Superior reunion 32 mm, 6mm Glenosphere 3. Kalee reunion 32mm, 4mm humeral liner 4. Kalee reunion reverse TSA humeral adapter tray 2mm 5. Superior reunion humeral stem primary press-fit 13mm size Brief history/Operative indications: 66 yo F with history of right shoulder pain and cuff tear arthropathy. Patient failed conservative measures as mentioned in the H&P. After discussion of risk and benefits of reverse total shoulder replacement including but not limited to blood loss, DVTs, PEs, nerve vessel damage, infection, general risk of anesthesia including loss of life, instability and stiffness patient demonstrating understanding wish to proceed was able to sign informed consent. Medical clearance was obtained. Procedure: On the date of the procedure, patient's right upper extremity was marked in the preoperative area. Patient was taken back to the operating room where they were placed on the table in the supine position. Anesthesia assumed control of the C-spine and airway, then administered anesthetic. All bony prominences were identified well-padded, the head was secured and the patient was placed in the beachchair position at about 35? inclination. Anesthesia remained in control of the C-spine airway throughout the remainder of the procedure. Patient was then appropriately fastened to the table and the right upper extremity was prepped in a sterile fashion. The surgeons then scrubbed. Upon reentering the room, the right upper extremity was draped in a sterile fashion and the incision was marked out. Timeout was called, everyone agreed upon the side, the site, the procedure to be performed, patient identity and antibiotics given. Incision was taken down through skin and subcutaneous tissue, fat down to fascia. The stripe of the deltopectoral interval and cephalic vein were identified and blunt dissection was used to retract the deltoid. The cephalic vein was retracted laterally. Clavipectoral fascia was then incised and a cobra retractor was placed in the wound. The proximal one third of the pectoralis major insertion was released. Pectoralis tendon insertion was used to tenodesed the biceps tendon which was identified in the bicipital groove. Tenodesis was done with #1 Vicryl. Proximally we followed the biceps tendon after transecting it into the rotator interval. The rotator interval was split and the arm was externally rotated. The split was 1 cm medial to the bicipital groove. Subscapularis tendon was released. We released down the anterior portion of the humeral head and a ayala elevator was used to release the inferior portion of the humeral head. The arm was externally rotated and the shoulder was dislocated. The humeral head was then cut at its natural retroversion. Once his humeral head cut was made humerus was retracted out of the way and the glenoid was exposed. After exposing the glenoid, the labrum and the remaining proximal biceps were debrided. At this time we are able to view the entire outer edge of the glenoid. A central pin was placed we sequentially reamed over this central pin to 32mm. Once this was completed the central screw was measured and found to be. The glenoid baseplate was screwed into place. Wound was closely irrigated out with normal saline we then drilled sequentially for 2 screws. Screws were placed superiorly and inferiorly and tightened down the screws. Once the screws were appropriately tightened into place the glenoid baseplate was compressed against the exposed subchondral bone. A 32mm glenosphere was impacted into place engaging the Foster taper. Attention was then turned towards the humerus. The humerus was again externally rotated exposing the proximal portion of the humerus. Central canal finder was then used to open up the canal. We reamed to a 13mm reamer. We then broached to a 13mm stem. We trialed the 4mm liner, with the 2mm humeral baseplate. We obtained an adequate reduction at this time with a nice stable shoulder. Good internal rotation to the gluteus, forward elevation to 140?, external rotation to 20?. Final components were then assembled on the back table, trials were removed and the wound was copiously irrigated with normal saline after dislocating the shoulder. Once the final components were assembled they were impacted into place. Shoulder was then reduced and found to be stable with good range of motion. Subscapularis tendon was repaired using #2 FiberWire. The wound was with chlorhexidine solution then copiously irrigated out with a 1 L normal saline lavage. The deltopectoral fascia was then closed using #1 Vicryl skin was closed using 2-0 Vicryl interrupted sutures and final skin closure was done with 3-0 Monocryl. Steri-Strips are placed for final skin closure. Sterile dressing was placed patient was then placed in a sling and awakened by anesthesia. Patient was then transferred to the PACU for recovery. Postoperative plan: Patient will be admitted to the hospital overnight. They will get physical therapy starting in 2 weeks with normal postoperative regimen. Patient will resume her Eliquis tomorrow for DVT prophylaxis. The first postoperative appointment will be in 2 weeks for wound check and initiation of phase 1 physical therapy. During the course of the procedure the physician assistant banquet manager played a vital role. His intimate knowledge of my steps in the procedure aided in safe and expedient completion of the procedure. The PA played a vital rolls in positioning particularly in obtaining the appropriate beach chair position and securing the patient's body and head to the table. The PA was also vital in the retraction of soft tissues during the exposure and especially the glenoid work as this is a vital part of the procedure to prevent neurovascular damage. the PA was also vital and protecting soft tissues during times of bony cuts and reaming. He also played a vital role in closure with my direct supervision. The PA was also important during reduction and dislocation of the joint and trials intraoperatively. Complications No intraoperative complications Admit VTE Documentation VTE Present on Admission: No VTE Mechan Device Prophylaxis: SCD's VTE Pharm Prophylaxis ordered?: Yes
[2022-05-04] MEDS: dexAMETHasone 10 MG/ML Vial IV (07:01)
[2022-05-04] MEDS: Acetaminophen 500 MG Tablet 1000 MG PO ×3 (07:06→21:34)
[2022-05-04] MEDS: Gabapentin 600 MG Tablet PO (07:06)
[2022-05-04] MEDS: Celecoxib 200 MG Capsule 400 MG PO (07:06)
[2022-05-04] MEDS: Cefazolin 2 GM in 0.9% Normal Saline 100 ML IV (08:28)
[2022-05-04] MEDS: TXA 1000mg in NS100 100ml (IVPB at Incision) 660 MG IV (08:45)
[2022-05-04] MEDS: TXA 1000mg in NS100 100ml (IVPB at Closure) 660 MG IV (09:41)
--- NOTE | 2022-05-04 10:50 | RAD_ITS ---
STUDY: X-RAY - RIGHT SHOULDER REASON FOR EXAM: Female, 66 years old. Postoperative evaluation after total shoulder arthroplasty. TECHNIQUE: A single frontal view(s) of the shoulder. COMPARISON: None. FINDINGS: Single frontal view shows total shoulder arthroplasty in anatomic alignment without complications. Normal visualized pulmonary apex. RAD/Shoulder min 2 Views IMPRESSION: Total shoulder arthroplasty without complications. Electronically Signed: Uriel Quinteros MD at 12:56 EDT ,
[2022-05-04] MEDS: Lactated Ringers 1,000 ML 999 ML IV (10:59)
[2022-05-04] MEDS: Ketorolac 30 MG/ML Syringe IV (11:02)
[2022-05-04] MEDS: Lactated Ringers 1,000 ML 125 ML IV (13:04)
--- NOTE | 2022-05-04 14:28 | SUR.PHASEII ---
1300, patient states she does not feel well and would like to be admitted overnight. Daughter in to see patient, daughter states she would like her mother to be admitted. Dr Nails paged.
[2022-05-04] MEDS: Anastrozole 1 MG TABLET PO (15:08)
--- NOTE | 2022-05-04 15:41 | PCM.PN.HOSP ---
Subjective Subjective Follow-up for postop medical management: 66-year-old old female with past medical history of hypertension, history of left breast CA, in remission for the past 5 years, arthritis who comes in for elective right shoulder replacement. Patient underwent right reverse total shoulder replacement for right shoulder osteoarthritis with rotator cuff dysfunction. Postoperatively, patient was found to still required 4 L of oxygen in PACU. Patient stated that she had some congestion prior to the surgery. Denied any fever or chills. Review of patient's admitting data shows that the chest x-ray done on 04/21/22 showed bibasilar infiltrates or atelectasis. Patient denied any worsening shortness of breath. Denied any chest pain or dizziness or palpitation. #Pain in the right shoulder is fairly controlled. She has ambulated with therapy. She was on 2 L of oxygen at time of being seen. Objective Data Objective Data Vital Signs: Vital Signs Temp Pulse Resp BP Pulse Ox 97.6 F L 85 18 175/70 H 93 05/04/22 14:46 05/04/22 14:46 05/04/22 14:46 05/04/22 14:46 05/04/22 14:46 Oxygen Flow Rate (L/min) 2 Oxygen Delivery Method Nasal Cannula Weight: 108.6 kg Body Mass Index (BMI) 42.4 Intake & Output: Intake and Output for Last 24 Hours 05/02/22 05/03/22 05/04/22 23:59 23:59 23:59 Intake Total 1966 Balance 1966 Lab / Micro Data Labs: Laboratory Results - last 24 hr 05/04/22 06:44: POC Glucose 107 H Micro: Microbiology 04/21/22 09:50 Swab (Method) Nasal Screen MRSA/MSSA - Final Radiography Diagnostic Testing: Radiology Impression Shoulder X-Ray 05/04/22 10:50 IMPRESSION: Total shoulder arthroplasty without complications. Electronically Signed: Uriel Quinteros MD at 12:56 EDT , Physical Exam Narrative Physical exam: General: Alert, Oriented x3, Cooperative, on 2 L of oxygen, not pale, morbidly obese HEENT: Atraumatic Oral: Moist Mucosa Neck: Supple Lungs: Diminished to auscultation especially at lung bases Cardiovascular: HS I+II, regular, no murmurs Abdomen: Bowel Sounds Present, Soft, Non Tender Extremities: No edema Skin: No rashes, No breakdown Neurological: Grossly intact Psych/Mental Status: Appropriate Assessment & Plan Assessment/Plan (1) Hypoxia: PLAN: Plan 1. POD #0 status post reverse right shoulder arthroplasty Pain is fairly controlled, scheduled Tylenol, oxycodone prn Continue with orthopedics recommendation as well as PT and OT evaluations 2. Hypoxia, recent abnormal chest x-ray Patient currently on 2 L of oxygen, repeat chest x-ray, encourage use of incentive spirometer 3. Hypertension, uncontrolled likely on account of uncontrolled pain Continue with home medication - Lisinopril, pain medications, will add hydralazine as needed Will consider increasing lisinopril if blood pressure remains uncontrolled 4. Breast CA, in remission, continue anastrozole 5. DVT prophylaxis?on apixaban Charges/Coding Visit Charges Inpatient E&M: 79887 Subs Hosp L2
--- NOTE | 2022-05-04 16:27 | RAD_ITS ---
STUDY: X-RAY CHEST REASON FOR EXAM: Female, 66 years old. sob TECHNIQUE: Single AP portable view of the chest. COMPARISON: 04/21/2022 FINDINGS: Poor inspiration with some bibasilar atelectasis. There is no demonstrated pleural abnormality. There is moderate cardiac enlargement. Normal mediastinum and sona. Normal visualized pulmonary arteries. Normal visualized aortic arch and descending thoracic aorta. Rods in thoracolumbar spine. Status post right shoulder reverse arthroplasty. There is no demonstrated abnormality of the visualized soft tissue structures of the upper abdomen. RAD/Chest 1 View (Portable) IMPRESSION: Poor inspiration with some bibasilar atelectasis. Electronically Signed: Jeremy Ayala MD at 17:04 EDT ,
[2022-05-04] MEDS: Cefazolin 1 GM/50 ML BAG IV ×2 (17:08→23:55)
[2022-05-04] MEDS: Ipratropium/Albuterol Sulfate 3 ML AMPUL.NEB INHALATION (18:32)
[2022-05-04] MEDS: Lisinopril 10 MG Tablet PO (21:33)
[2022-05-04] MEDS: Famotidine 20 MG Tablet PO (21:33)
[2022-05-04] MEDS: Senna/Docusate Sodium 1 Tablet 2 TABLET PO (21:33)
[2022-05-05 02:52] VITALS: BP 158/61; PULSE 63; RESP 16; TEMP 36.6; O2SAT 94
[2022-05-05] MEDS: Acetaminophen 500 MG Tablet 1000 MG PO (05:40)
[2022-05-05] MEDS: Pantoprazole Sodium 20 MG Tablet PO (05:45)
[2022-05-05 07:09] VITALS: PULSE 67; RESP 18; O2SAT 97
[2022-05-05] MEDS: Ipratropium/Albuterol Sulfate 3 ML AMPUL.NEB INHALATION ×2 (07:09→11:10)
[2022-05-05] MEDS: Senna/Docusate Sodium 1 Tablet 2 TABLET PO (09:08)
[2022-05-05] MEDS: Calcium Carb/Vitamin D 1 TABLET Tablet PO (09:08)
[2022-05-05] MEDS: Multivitamins,Therapeutic Tablet 1 TABLET PO (09:08)
--- NOTE | 2022-05-05 10:00 | CASEMGMT ---
RN JEREMIAH Face to Face with patient for initial transition planning/care coordination assessment. RN CM introduced self and role at [facility]. Patient sitting in chair, alert and oriented. Patient willing to participate in assessment and is able to answer all questions appropriately. Care providers, pharmacy, and demographics verified. Patient wishes to discharge home, denies need for home health at this time. Patient states she has no further needs or concerns at this time. CM to follow for discharge planning needs that may arise. PCP: Beverly Colunga BEATER ROOM HELPER Specialists: mari Nails; Speedy culinary instructor; Karen, oncologist Preferred Pharmacy: [facility] Insurance: [employer], MMO Prescription Benefit: yes Living Will/HPOA: none LNOK: daughter, son, Boyfriend Living Arrangements: Patient lives with boyfriend and daughter in a 2 story home with bed and bath on first floor. Patient states she was independent at home prior to surgery. Transportation: daughter, son DME/HHC: Patient states she has shower chair, raised toilet seat, cane, grab bars, hip kit, walker, pulse ox, and BP at home. No previous HHC or SNF Disposition Plan: Patient to discharge home with family support and follow-up plans in place. Dionne SOLARES, RN, CM
--- NOTE | 2022-05-05 10:21 | PN.ORTHO_ITS ---
Subjective Subjective The patient was sitting in bedside chair upon examination. Patient denies any chest pain, shortness of breath, dizziness, lightheadedness, nausea or vomiting, or calf pain. Pain is controlled on medications. No adverse overnight events. Patient was very frustrated as lab attempted on 2 different tries to get lab work. They were not able to proceed with lab work and her left arm and we attempted at the right hand. Patient is now refusing to proceed with any other attempts for lab work. She did have some elevated blood pressure and is currently getting medications adjusted by medicine in the hospital. I did discuss case with medicine. She has also had previous chest x-ray which did show atelectasis. Repeat x-ray was obtained by medicine. She is adjusting the blood pressure medications and as long as blood pressure stays stable plan will be for discharge home today. Patient states she typically just sits in a chair all day. Objective Data Objective Data Vital Signs: Vital Signs Temp Pulse Resp BP Pulse Ox 97.8 F 67 18 158/61 H 97 05/05/22 02:52 05/05/22 07:09 05/05/22 07:09 05/05/22 02:52 05/05/22 07:09 Oxygen Flow Rate (L/min) 3 Oxygen Delivery Method Room Air Weight: 108.6 kg Body Mass Index (BMI) 42.4 Intake & Output: Intake and Output for Last 24 Hours 05/03/22 05/04/22 05/05/22 23:59 23:59 23:59 Intake Total 3517 / 4167 700 / 700 Output Total 300 / 1100 1100 / 1100 Balance 3217 / 3067 -400 / -400 Lab / Micro Data Micro: Microbiology 04/21/22 09:50 Swab (Method) Nasal Screen MRSA/MSSA - Final Radiography Diagnostic Testing: Radiology Impression Shoulder X-Ray 05/04/22 10:50 IMPRESSION: Total shoulder arthroplasty without complications. Electronically Signed: Uriel Quinteros MD at 12:56 EDT , Chest X-Ray 05/04/22 16:27 IMPRESSION: Poor inspiration with some bibasilar atelectasis. Electronically Signed: Jeremy Ayala MD at 17:04 EDT , Physical Exam Narrative Vital signs stable, afebrile SCDs are in place bilaterally Dressing is clean, dry, intact Ultra-sling fitting appropriately Sensation intact to axillary, radial, median, and ulnar distribution Motor intact to AIN, PIN, and ulnar nerve Const alert, oriented x3 and no apparent distress Assessment & Plan Assessment/Plan (1) Status post reverse total arthroplasty of right shoulder: PLAN: 1. S/P right reverse total shoulder arthroplasty POD #1 2. Continue Pain Medications: Patient already has her pain medications at home as she was scheduled to do outpatient procedure. She has tramadol and Tylenol at home. I would like her to hold off of the meloxicam while taking the Eliquis for DVT prophylaxis. 3. DVT Prophylaxis: Eliquis 2.5 mg twice daily for 2 weeks postoperatively. Pedro lott currently takes anastrozole and has previous history of breast cancer. She has been in remission. 4. PT/OT: Continue with UltraSling at all times except to come out for range of motion exercises of the elbow and pendulum exercise 3 times daily. No range of motion of the postoperative shoulder until outpatient physical therapy begins. Outpatient physical therapy will begin 2 weeks postoperatively after follow-up with [facility] with x-rays and incision check. 5. H & H: Lab work was attempted on 2 separate occasions. Patient states she does not like needles. She is refusing any further attempts for lab work. 6. Encouraged Incentive Spirometry: Patient does have previous history of chest x-rays with atelectasis. I encouraged her to get up and move every 30 minutes to 1 hour throughout the day to walk. She is also to work on the incentive spirometer every 30 minutes every day for the next 2 weeks. 7. Continue postoperative medical management per medicine 8. Disposition: Medicine has adjusted patient's blood pressure medications. We will also continue to monitor her blood pressure and as long as she stays stable plan will be for discharge home today if cleared by medicine. From orthopedic standpoint patient is doing well. She has all her medications at home for pain control and DVT prophylaxis. She has outpatient formal physical therapy scheduled to begin after her 2-week scheduled follow-up with our office. She will follow-up per postop instructions. I also recommend patient follow-up with primary care physician in 1 week. She reports that she has a follow-up appointment with her primary care physician Dr. Silva on May 10, 2022. I would like her to follow her for her hypertension and atelectasis. Patient did voice understanding agreement with treatment plan. She will contact her office with any concerns or questions. I have reviewed the [place] Automated Rx Reporting System (OARRS) report for this patient for refill pattern and other prescriber involvement as part of the appropriate surveillance for the provision of acute and chronic controlled medications. The report was requested and reviewed on the date of this entry and was considered in the prescribing process. This dictation was created using voice recognition software. Phonetic and/or grammatical errors may exist.
--- NOTE | 2022-05-05 10:28 | DCINST_ITS ---
Discharge Instructions Diet Discharge Diet: No restrictions Activity Discharge Activity: May Not Drive (You are not able to drive for 6 weeks postoperatively while wearing the UltraSling. No driving while taking narcotics.) May shower in (days): 1 (Dressing must be intact to skin. Turn dressing away from water.) Ice area for (Minutes): 20 (Every 1-2 hours while awake[address] place barrier between skin and ice pack.) Weight Bearing Status: No weight bearing (Postoperative upper extremity) Additional Activity Instructions:: Continue with UltraSling at all times. Please come out of UltraSling 3 times daily working on elbow range of motion and pendulum exercises. No range of motion of postoperative shoulder. Will begin outpatient physical therapy after 2-week scheduled follow-up. Dressing / Incision Call your doctor if your incision/area has: Continuous Slow Oozing, Sudden Increased Bleeding, Increased Pain/ Swelling, Increased Redness and Foul Smelling Discharge Call your doctor if you observe: Fever of 101 or Higher, Shortness of breath, Chest pain and Uncontrolled pain Remove Dressing in: 4 days (Okay to remove dressing on May 09, 2022) Additional Dressing/Incision Instructions:: Follow [facility] Post-op Instructions. Once postoperative dressing has been removed only use gentle soap and water over the incision. Do not use any ointments, Neosporin, salves, alcohol pads over the incision for 6 weeks postoperatively. Do not submerge underwater for 6 weeks postoperatively. Do NOT use alcohol with narcotic pain medication. Do NOT make important decisions while taking narcotic medication. If you have problems with taking your medication (rash, itching, nausea, etc.) call the office at once. Follow Up Care Test Results: Test results from this visit will be discussed in further detail at your follow- up appointment, if applicable. Discharge Plan Admission Admit Date/Time: 05/04/22 13:18 Attending Provider: Jb Nails Primary Care Provider: Beverly Colunga NP Consulting Providers: Jeanne Robbins Instructions Additional Instructions / Restrictions: Note the increase in your BP med - Lisinopril 20mg daily Discharge Orders/Prescriptions Prescriptions: New lisinopril 20 mg Tablet 20 mg PO QHS Qty: 0 0RF Rx Instructions: Follow-up with primary care physician for changes in hypertension medication sennosides-docusate sodium [Stool Softener-Stimulant Laxat] 8.6-50 mg Tablet 2 tab PO BID Qty: 0 0RF Rx Instructions: Take until first bowel movement, then as needed Eliquis 2.5 mg Tablet 2.5 mg PO BID Qty: 0 0RF Rx Instructions: Take for 2 weeks postoperatively for DVT prophylaxis Continued clobetasol 0.05 % cream 1 applic TOPICAL BID PRN (Reason: Skin Cleansing) famotidine 20 mg tablet 20 mg PO QHS calcium carbonate-vitamin D3 600 mg-10 mcg (400 unit) capsule 1 cap PO DAILY multivitamin Tablet 1 tab PO DAILY anastrozole 1 MG tablet 1 mg PO DAILY omeprazole 20 MG capsule,delayed release(DR/EC) 20 mg PO DAILY Label Comments: TK 1 C PO ONCE DAILY Discontinued lisinopril 10 mg tablet 10 mg PO QHS Referrals / Follow Up: Physical,Therapy [Other] - 05/20/22 10:00 am (with Sm[facility]) Beverly Colunga NP, SHOP SUPERINTENDENT-C [Primary Care Provider] - 05/10/22 Glen Ruiz PA-C [PHYSICIAN SHOT POLISHER AND INSPECTOR] - 05/20/22 9:00 am Disposition Disposition (needs filled in before D/C Order can be placed): Home, Self Care
--- NOTE | 2022-05-05 10:41 | PCM.PN.HOSP ---
Subjective Subjective Follow-up for postop medical management: Patient was seen and examined. She feels improved. She is off oxygen. She is on room air. Her pain is fairly controlled. She is done some therapy with physical therapy this morning. Her blood pressures are uncontrolled. Objective Data Objective Data Vital Signs: Vital Signs Temp Pulse Resp BP Pulse Ox 97.8 F 67 18 158/61 H 97 05/05/22 02:52 05/05/22 07:09 05/05/22 07:09 05/05/22 02:52 05/05/22 07:09 Oxygen Flow Rate (L/min) 3 Oxygen Delivery Method Room Air Weight: 108.6 kg Body Mass Index (BMI) 42.4 Intake & Output: Intake and Output for Last 24 Hours 05/03/22 05/04/22 05/05/22 23:59 23:59 23:59 Intake Total 3517 / 4167 700 / 700 Output Total 300 / 1100 1100 / 1100 Balance 3217 / 3067 -400 / -400 Lab / Micro Data Micro: Microbiology 04/21/22 09:50 Swab (Method) Nasal Screen MRSA/MSSA - Final Radiography Diagnostic Testing: Radiology Impression Shoulder X-Ray 05/04/22 10:50 IMPRESSION: Total shoulder arthroplasty without complications. Electronically Signed: Uriel Quinteros MD at 12:56 EDT , Chest X-Ray 05/04/22 16:27 IMPRESSION: Poor inspiration with some bibasilar atelectasis. Electronically Signed: Jeremy Ayala MD at 17:04 EDT , Physical Exam Narrative Physical exam: General: Alert, Oriented x3, Cooperative, off oxygen, morbidly obese HEENT: Atraumatic Oral: Moist Mucosa Neck: Supple Lungs: Diminished to auscultation especially at lung bases Cardiovascular: HS I+II, regular, no murmurs Abdomen: Bowel Sounds Present, Soft, Non Tender Extremities: No edema Skin: No rashes, No breakdown Neurological: Grossly intact Psych/Mental Status: Appropriate Assessment & Plan Assessment/Plan (1) Hypoxia: PLAN: Plan 1. POD #1 status post reverse right shoulder arthroplasty Pain is fairly controlled, scheduled Tylenol, oxycodone prn Continue with orthopedics recommendation as well as PT and OT evaluations 2. Hypoxia, recent abnormal chest x-ray, resolved CXR showed bilateral atelectasis Encourage use of incentive spirometer 3. Hypertension, slightly uncontrolled Will increase Lisinopril to 20mg QHS Continue with pain control 4. Breast CA, in remission, continue anastrozole 5. DVT prophylaxis?on apixaban Charges/Coding Visit Charges Inpatient E&M: 38957 Subs Hosp L2 Office Visits / Consults: 28315 OP Consult L5
[2022-05-05 11:04] VITALS: BP 145/50; PULSE 85; RESP 18; TEMP 36.5; O2SAT 96
[2022-05-05 11:10] VITALS: PULSE 97; RESP 18
[2022-05-05 13:17] VITALS: BP 140/58; PULSE 80; RESP 18; TEMP 36.5; O2SAT 97
== END 2022-05-05 13:30 | disposition home or self-care (01) ==
LOC: SDC 13:26 → MS3 13:26
PROVIDERS: Anesthesiology; Admitting Provider Specialist; PCP Registered Nurse; Referring Provider Specialist; Visit Provider Specialist
PROC: (CPT 23472; principal; 2022-05-04 08:15)
DX: M19.011 Primary osteoarthritis, right shoulder (principal); Z79.811 Long term (current) use of aromatase inhibitors; I10 Essential (primary) hypertension; R09.02 Hypoxemia; Z79.899 Other long term (current) drug therapy; Z79.01 Long term (current) use of anticoagulants; Z85.3 Personal history of malignant neoplasm of breast; M75.101 Unspecified rotator cuff tear or rupture of right shoulder, not specified as traumatic
CPT/HCPCS: 23472; 01638; 64415; 36415; 71045; 71046; 73030; 82962; 83735; 87081; 88305; 88311; 94640; 96361; 96365; 96366; 97162; 97166; 97530; 97535; 99218; 99251; C1776; J7040; J7050; J7120; A4216; G0378; G0463; J2405; J3475

== ENCOUNTER → 2022-05-10 | Outpatient (CLI) | payer MEDICARE, OTHER, SELFPAY ==
--- NOTE | 2022-05-10 14:10 | US_ITS ---
STUDY: ULTRASOUND BREAST - RIGHT REASON FOR EXAM: Female, 66 years old. Abnormal screening mammogram. TECHNIQUE: Axial and longitudinal images of the RIGHT breast were performed with a high resolution ultrasound transducer. # OF IMAGES: 25 COMPARISON: Comparison is made with prior mammogram done earlier in the day. FINDINGS: RIGHT Breast: The mammographic abnormality corresponds to a 8.7 mm x 7.7 mm hypoechoic solid nodule with posterior shadowing at the 5 o''clock position breast at 3 cm some nipple. Biopsy recommended. US/Breast Limited Unilateral IMPRESSION: 8.7 mm x 7.7 mm hypoechoic solid nodule with posterior shadowing at the 5 o''clock position of the breast at 3 cm from nipple. Biopsy recommended. ASSESSMENT CATEGORY: BIRADS Category 4: Suspicious - Biopsy Should Be Considered. A letter regarding these results will be sent to the patient by the facility within 30 days. Electronically Signed: Rancho Lyles MD at 15:32 EDT ,
--- NOTE | 2022-05-10 14:10 | BI_ITS ---
MAMMOGRAPHY - UNILATERAL DIAGNOSTIC: RIGHT BREAST REASON FOR EXAM: Female, 66 years old. Abnormal screening mammogram. PERTINENT HISTORY: Personal history of breast cancer. Prior left lumpectomy and radiation treatment. TECHNIQUE: Compression spot views of the right breast in the mediolateral oblique and craniocaudal projections were obtained. CAD: Full Field Digital Mammography with Computer Added Detection was performed. COMPARISON: Comparison is made with prior study dated 05/02/2022. FINDINGS: Breast Composition: The breasts are heterogeneously dense, which may obscure small masses. There is a persistent 9.1 mm x 9.3 mm spiculated nodule with central calcification in the retroareolar region of the right breast. Correlation with ultrasound is recommended. No other significant abnormalities are identified. BI/DIAG MAMM W/CAD, UNILAT IMPRESSION: Persistent 9.1 mm x 9.3 mm speck located nodule with central calcification in the retroareolar region of the right breast. Correlation with ultrasound is recommended. ASSESSMENT CATEGORY: BIRADS Category 0: Incomplete. Need additional imaging evaluation. A letter regarding these results will be sent to the patient by the facility within 30 days. Approximately 10% of breast cancers are not detected by mammography. A normal mammogram should not delay biopsy of a clinically suspicious abnormality. Electronically Signed: Rancho Lyles MD at 15:01 EDT ,
== END | disposition home or self-care (01) ==
LOC: OPBI 14:07
PROVIDERS: PCP Registered Nurse; Visit Provider Nurse Practitioner
DX: C50.412 Malignant neoplasm of upper-outer quadrant of left female breast (principal); Z17.0 Estrogen receptor positive status [ER+]; R92.8 Other abnormal and inconclusive findings on diagnostic imaging of breast
CPT/HCPCS: 76642; 77065

== ENCOUNTER 2022-07-09 22:32 | Inpatient (IN) | payer MEDICARE, OTHER, SELFPAY ==
[2022-07-09 22:33] VITALS: BP 135/89; PULSE 110; RESP 16; TEMP 37.6; O2SAT 96; BMI 41.8
[2022-07-09 22:50] VITALS: TEMP 37.3
--- NOTE | 2022-07-09 23:28 | EKG12_ITS ---
Test Reason : DYSRHYTHMIA Blood Pressure : / mmHG Vent. Rate : 103 BPM Atrial Rate : 103 BPM P-R Int : 144 ms QRS Dur : 086 ms QT Int : 350 ms P-R-T Axes : 060 002 029 degrees QTc Int : 458 ms Sinus tachycardia Otherwise normal ECG Confirmed by MOUSTAPHA HODGE, PIERRE ([id number]), city editor DAGOBERTO WISDOM ([id number]) on 07/12/2022 7:53:53 AM Referred By: ALVARADO Confirmed By:PIERRE GERARD MD
--- NOTE | 2022-07-09 23:44 | EX.ED.DYSGE1 ---
HPI History of Present Illness Chief Complaint: Fever Informant: patient Onset/Context/Timing Onset: Today Context: Gradual Onset Timing: Waxes and wanes Quality: fever, chills Location: all over Current Severity: Mild Maximum Severity: Severe Worsened by: when temp was 102.4 Relieved by: nothing; took no medications/antipyretics Associated Symptoms Associated Symptoms: weakness/fatigue Narrative Narrative: Patient received her first chemotherapy treatment for breast cancer last week, started having fevers today. She is not sure if she had a white cell boosting medication or not. She states she has had some urinary symptoms lately, not going quite as much as she would expect for the amount of water she is trying to drink, and some suprapubic/lower abdominal pressure. No cough or shortness of breath but phlegm is present that is always there. [facility] Medical History Ambulates with cane Anemia Back pain Back pain Breast CA Breast cancer of upper-outer quadrant of left female breast Cardiology follow-up encounter Essential hypertension Gastric reflux GERD (gastroesophageal reflux disease) History of echocardiogram History of edema History of irregular heartbeat History of pain when walking History of stress test Hypertension Migraine headache Non-smoker Osteoarthritis Premature ventricular contraction Preoperative cardiovascular examination Shortness of breath on exertion Spinal stenosis Walker as ambulation aid Wears dentures Wears glasses Home Medications anastrozole 1 mg tablet 1 mg PO DAILY 07/20/17 [History Last Taken Unknown] omeprazole 20 mg capsule,delayed release 20 mg PO DAILY 05/01/18 [History Last Taken 05/04/22 04:00] clobetasol 0.05 % topical cream 1 applic topical BID PRN Skin Cleansing 03/04/21 [History Last Taken Unknown] calcium carbonate 600 mg-vitamin D3 10 mcg (400 unit) capsule 1 cap PO DAILY 03/03/22 [History Last Taken Unknown] multivitamin 1 tab PO DAILY 03/03/22 [History Last Taken Unknown] lisinopril 20 mg tablet 20 mg PO QHS #0 tabs 05/05/22 [Rx Last Taken Unknown] sennosides 8.6 mg-docusate sodium 50 mg tablet (Stool Softener-Stimulant Laxative) 2 tab PO BID #0 tabs 05/05/22 [Rx Last Taken Unknown] Allergy/AdvReac Type Severity Reaction Status Date / Time codeine Allergy Mild N/V AND Verified 07/09/22 22:37 MAKES HER FEEL REALLY SICK hydrocodone [From Vicodin] Allergy Mild N/V AND Verified 07/09/22 22:37 MAKES HER FEEL REALLY SICK Family History Mother Diabetes Kidney disease Father CVA (cerebral vascular accident) Hypertension Sister Thyroid disorder Surgical History (Updated 05/05/22 @ 10:24 by Glen MONROE PAPromiseC) History of breast lump/mass excision History of carpal tunnel surgery History of hip replacement Hx of colonoscopy Hx of esophagogastroduodenoscopy Hx of hysterectomy Hx of surgical amputation of finger Hx of tonsillectomy Hx of tubal ligation Previous back surgery S/P lumpectomy, left breast Social History Smoking Status: Unknown if ever smoked second hand exposure: No alcohol intake: never substance use type: does not use caffeine: Yes ROS ROS ED Constitutional Constitutional ED: Reports chills, fatigue, fever(s) and malaise Eyes Eyes: Denies change in vision or diplopia ENT ENT ED: Denies rhinorrhea or sore throat Cardiovascular Cardiovascular: Denies chest pain or palpitations Respiratory/Chest Respiratory/Chest: Denies cough or dyspnea Gastrointestinal Gastrointestinal: Reports abdominal pain; Denies diarrhea, nausea or vomiting Genitourinary Genitourinary ED: Reports urinary frequency and urinary urgency; Denies dysuria or hematuria Musculoskeletal Musculoskeletal: Denies back pain or neck pain Integumentary Denies abscess or rash Neurologic Neurologic: Denies headache(s), paresthesias or weakness Psychiatric Psychiatric: Denies anxiety or suicidal thoughts EXAM Physical Exam Const Vital Signs: 07/09/22 22:33 07/09/22 22:48 07/09/22 22:50 Temperature 99.6 F H 99.2 F H Temperature Source Temporal Oral Pulse Rate 110 H Respiratory Rate 16 Respiratory Pattern Normal Blood Pressure 135/89 H Blood Pressure Mean 104 Pulse Ox 96 Oxygen Delivery Method Room Air 07/10/22 00:14 07/10/22 00:15 07/10/22 00:15 Temperature 99.2 F H 99.2 F H Temperature Source Oral Oral Pulse Rate 89 Respiratory Rate 18 Respiratory Pattern Blood Pressure 138/90 H Blood Pressure Mean 106 Pulse Ox 96 96 Oxygen Delivery Method Room Air Room Air 07/10/22 01:26 07/10/22 02:04 Temperature Temperature Source Pulse Rate 71 82 Respiratory Rate 18 18 Respiratory Pattern Blood Pressure 101/56 L 111/52 L Blood Pressure Mean 71 71 Pulse Ox 95 93 Oxygen Delivery Method Room Air Room Air Positive well nourished, well developed and obese General Appearance ED: well developed and NAD Nutritional Appearance: obese HEENT Reports moist mucous membranes normocephalic and atraumatic Eyes PERRL and EOMs intact bilaterally Neck full ROM and supple Resp normal respiratory effort and clear to auscultation bilaterally Effort and Inspection: able to speak in complete sentences Cardio regular rate, regular rhythm and no murmurs Cardio Narrative: Mild tachycardia GI non-distended GI Narrative: Mild suprapubic tenderness, no guarding or rebound tenderness. No pulsatile mass. Auscultation: normoactive bowel sounds Palpation: soft Back/Spine no CVA tenderness General Back: other FROM Extremity normal to inspection General Extremety ED: Negative for edema, pulses abnormal or tenderness General Extremity: Negative for edema or pulses abnormal Neuro oriented x3, CN's II-XII intact bilaterally and no sensory deficits noted Neuro Narrative: Normal gait while using walker Sensorium / Orientation: awake and alert Motor Exam: strength 5/5 throughout Skin no rashes or lesions noted and no wounds MDM MDM MDM Narrative Medical decision making narrative: Patient is pancytopenic, neutropenic with an ANC of 200, and the rest of her work-up is unremarkable. Urinalysis negative for infection, chest x-ray 1 view my interpretation negative, viral swabs are negative. Discussed with Dr. Hernandez with oncology, recommends IV Zosyn and vancomycin and admission, patient is comfortable with that plan discussed with hospitalist. Lab Data Attestation: I reviewed the patient's lab results. Labs: Laboratory Results - last 24 hr 07/09/22 07/09/22 07/10/22 23:50 23:50 00:01 WBC 0.7 L* RBC 3.30 L Hgb 9.4 L Hct 29.6 L MCV 89.7 MCH 28.5 MCHC 31.8 L RDW Std Deviation 45.1 H RDW Coeff of Tj 13.7 Plt Count 59 L MPV 11.5 Immature Gran % (Auto) 0.000 Neut % (Auto) 27.8 L Lymph % (Auto) 52.3 H [place] % (Auto) 13.8 H Eos % (Auto) 4.6 Baso % (Auto) 1.5 H Absolute Neuts (auto) 0.2 L Absolute Lymphs (auto) 0.34 L Nucleated RBC % 0 Differential Comment SCANNED Diff Path Review May foll Sodium 132 L Potassium 4.0 Chloride 99 Carbon Dioxide 27.0 Anion Gap 6 BUN 11 Creatinine 0.77 Estim Creat Clear Calc 44.54 Est GFR (MDRD) Af Amer 96 Est GFR (MDRD) Non-Af 79 BUN/Creatinine Ratio 14.3 Glucose 158 H Lactic Acid 1.4 Calcium 8.0 L Total Bilirubin 0.70 AST 13 L ALT 17 Alkaline Phosphatase 62 Total Protein 6.3 L Albumin 2.8 L Globulin 3.5 Albumin/Globulin Ratio 0.8 L Urine Color Urine Clarity Urine pH Ur Specific [place] Urine Protein Urine Glucose (UA) Urine Ketones Urine Occult Blood Urine Nitrite Urine Bilirubin Urine Urobilinogen Ur Leukocyte Esterase Urine RBC Urine WBC Ur Squamous Epith Cells Urine Bacteria Urine Mucus 07/10/22 00:06 WBC RBC Hgb Hct MCV MCH MCHC RDW Std Deviation RDW Coeff of Tj Plt Count MPV Immature Gran % (Auto) Neut % (Auto) Lymph % (Auto) [place] % (Auto) Eos % (Auto) Baso % (Auto) Absolute Neuts (auto) Absolute Lymphs (auto) Nucleated RBC % Differential Comment Diff Path Review Sodium Potassium Chloride Carbon Dioxide Anion Gap BUN Creatinine Estim Creat Clear Calc Est GFR (MDRD) Af Amer Est GFR (MDRD) Non-Af BUN/Creatinine Ratio Glucose Lactic Acid Calcium Total Bilirubin AST ALT Alkaline Phosphatase Total Protein Albumin Globulin Albumin/Globulin Ratio Urine Color Yellow Urine Clarity Clear Urine pH 7.0 Ur Specific [place] 1.005 Urine Protein Negative Urine Glucose (UA) Normal Urine Ketones Negative Urine Occult Blood Negative Urine Nitrite Negative Urine Bilirubin Negative Urine Urobilinogen Normal Ur Leukocyte Esterase Negative Urine RBC 0 SEEN Urine WBC 0 SEEN Ur Squamous Epith Cells 0 SEEN Urine Bacteria 0 SEEN Urine Mucus 0 SEEN Radiography Chest X-Ray - ED: 1 View, Read by ED Physician, Normal and No Acute Disease Diagnostic Testing: Clinical Impression(s) from Imaging Studies Chest X-Ray 07/10/22 00:00 IMPRESSION: No active disease. Electronically Signed: Jeremy Ayala MD at 0:23 EDT , Rhythm Strip Rhythm Strip: Sinus Tach Rate: 105 Ectopy: None EKG Initial EKG: Attestation: I personally reviewed and interpreted this EKG as follows: Interpretation: No Acute Injury Pattern and Sinus Tachycardia Discharge Plan Dx/Rx/DC Orders Clinical Impression: Neutropenic fever, Pancytopenia due to antineoplastic chemotherapy, Breast cancer Disposition Disposition: Acute Care [facility]
[2022-07-10] VITALS (11 sets, daily range): BP systolic 101–146; BP diastolic 52–90; PULSE 71–97; RESP 18–20; TEMP 36.7–37.3; O2SAT 93–97; BMI 42.1
--- NOTE | 2022-07-10 | RAD_ITS ---
STUDY: X-RAY CHEST REASON FOR EXAM: Female, 66 years old. fever TECHNIQUE: Single AP portable view of the chest. COMPARISON: 04/26/2021 FINDINGS: Interval placement of left internal jugular chest port with tip the catheter overlying the distal superior vena cava. Status post left axillary lymph node dissection. The lungs are clear and expanded. Slightly elevated right hemidiaphragm which is unchanged. There is moderate cardiac enlargement. Normal mediastinum and sona. Normal visualized pulmonary arteries. Normal visualized aortic arch and descending thoracic aorta. Spinal rods in the lower thoracic spine. Status post right shoulder reverse arthroplasty. There is no demonstrated abnormality of the visualized soft tissue structures of the upper abdomen. RAD/Chest 1 View (Portable) IMPRESSION: No active disease. Electronically Signed: Jeremy Ayala MD at 0:23 EDT ,
[2022-07-10 00:11] LABS: Bacteria 0 SEEN /hpf (None Seen); Mucous, Urine 0 SEEN /hpf (<or=2+); Red Blood Cells-Urine 0 SEEN /hpf (0-5); Squamous Epithelial Cells - UA 0 SEEN /hpf (5-10); White Blood Cells 0 SEEN /hpf (0-5)
[2022-07-10 00:34] LABS: Absolute Lymphocyte Count 0.34 X10^3/uL (0.83-4.51); Absolute Neutrophil Count 0.2 X10^3/uL (2.0-7.7); Basophil# 0.01 X10^3/uL; Basophil% 1.5 % (0-1); Eosinophil# 0.03 X10^3/uL; Eosinophils% 4.6 % (0-5); Hematocrit 29.6 % (37-47); Hemoglobin 9.4 g/dL (12.0-15.0); Lymphocyte # 0.34 X10^3/ul (0.83-4.51); Lymphocyte % 52.3 % (19-41); Mean Corp Hgb Conc 31.8 g/dL (32-36); Mean Corpuscular Hgb 28.5 pg (27.0-32.0); Mean Corpuscular Volume 89.7 fL (81-99); Mean Platelet Vol. 11.5 fl (6.2-12.0); Monocyte# 0.09 X10^3/uL; Monocyte% 13.8 % (0-10); NRBC Flagged by Analyzer 0 % (0-5); Neutrophil # 0.18 X10^3/uL (2.7-7.7); Neutrophil % 27.8 % (47-70); POSITIVE COUNT YES; POSITIVE DIFFERENTIAL YES; POSITIVE MORPHOLOGY YES; Platelet Count 59 K/mm3 (150-450); RBC Distribution Width CV 13.7 % (11.6-14.6); RBC Distribution Width SD 45.1 fl (35.1-43.9)
[2022-07-10 00:35] LABS: Differential Indicated SCAN CRITERIA MET
[2022-07-10 00:36] LABS: ALB/GLOB Ratio 0.8 RATIO (0.9-2.4); AST(SGOT) 13 U/L (15-37); Alanine Aminotransfer ALT/SGPT 17 U/L (13-56); Albumin, Serum 2.8 g/dL (3.2-5.0); Alkaline Phosphatase 62 U/L (45-117); Anion Gap 6 (5-15); BUN 11 mg/dL (7-18); BUN/Creat Ratio 14.3 RATIO (10-20); Chloride 99 mmol/L (98-107); Creatinine, Serum 0.77 mg/dL (0.55-1.02); EST Glomerular Filtration Rate 79 mL/min (>60); Est Glom Filt Rate - Afr Amer 96 mL/min (>60); Estimated Creatinine Clearance 44.54 ml/min; Globulin 3.5 g/dL (2.2-4.2); Glucose 158 mg/dL (74-106); Protein, Total 6.3 g/dL (6.4-8.2); Sodium Level 132 mmol/L (136-145); White Blood Count 0.7 K/mm3 (4.4-11.0)
[2022-07-10 00:55] LABS: Lactic Acid 1.4 mmol/L (0.4-1.9)
[2022-07-10 01:00] LABS: Differential Comment SCANNED
[2022-07-10 01:02] LABS: Color, Urine Yellow (Yellow); Glucose, Dipstick Normal (Normal); Ketone-Dipstick Negative (Negative); Leukocyte Esterase-Dipstick Negative /ul (Negative); Nitrite-Dipstick Negative (Negative); Occult Blood-Urine Negative /ul (Negative); Protein-Dipstick Negative (Negative); Specific Gravity, Urine 1.005 (1.002-1.030); Urine Bilirubin Dipstick Negative (Negative); Urine Clarity Clear (Clear); Urine Urobilinogen Normal (Normal)
--- NOTE | 2022-07-10 02:18 | PCM.HP.STD ---
HPI - General General Date of Admission: 07/10/22 Date of Service: 07/10/22 Chief Complaint: Fever 102.4 at home, recent chemotherapy. HPI Narrative The patient is a 66 y/o F w/ PMHx: Morbid Obesity, GERD, Chronic normocytic anemia, HTN, HLD, Migraine headaches, Prior L Breast CA s/p lumpectomy and radiation 2015 with recent 05/04/22 diagnosis of recurrent Breast CA, R sided, noted to be triple negative with recent initiation of chemotherapy starting this past week with onset starting Monday fatigue, malaise, sore throat, chills, notable increased sleep requirments with increased abdominal bloating and loose stools although she does report recent prior miralax x 1 but nothing since and ongoing loose stools with onset fevers up to 102.4 at home starting Monday, not improving prompting evaluation per recommendation of her oncology service. Work-up in the ED noted T-max 99.6, heart rate initially 110 with most recent repeat 82, BP initially 135/89 with most recent repeat 111/52, respiratory rate 16, 93 to 97% on room air with most recent 93% on room air, CBC with WC 0.7, hemoglobin 9.4, MCV 89.7, platelet 59 with neutropenia and lymphopenia, CMP with sodium 132, glucose 158, lactic acid 1.4, hepatic profile not marked appearing, urinalysis with no obvious evidence of infection, chest x-ray with no acute cardiopulmonary findings, rapid COVID antigen negative, blood culture x2 pending per ED, EKG with sinus tachycardia with no acute evidence of ischemia. in the ED patient administered IV vancomycin and Zosyn. ED physician discussed case with her Oncology service who will be on consult and requested BSA initiation. [facility] Medical History (Updated 07/10/22 @ 02:[address] Bean Berry MD) Ambulates with cane Anemia Back pain Back pain Breast CA Breast cancer of upper-outer quadrant of left female breast Cardiology follow-up encounter Essential hypertension Gastric reflux GERD (gastroesophageal reflux disease) History of echocardiogram History of edema History of irregular heartbeat History of pain when walking History of stress test Hypertension Migraine headache Non-smoker Osteoarthritis Premature ventricular contraction Preoperative cardiovascular examination Shortness of breath on exertion Spinal stenosis Walker as ambulation aid Wears dentures Wears glasses Home Medications anastrozole 1 mg tablet 1 mg PO DAILY 07/20/17 [History Last Taken Unknown] omeprazole 20 mg capsule,delayed release 20 mg PO DAILY 05/01/18 [History Last Taken 05/04/22 04:00] clobetasol 0.05 % topical cream 1 applic topical BID PRN Skin Cleansing 03/04/21 [History Last Taken Unknown] calcium carbonate 600 mg-vitamin D3 10 mcg (400 unit) capsule 1 cap PO DAILY 03/03/22 [History Last Taken Unknown] multivitamin 1 tab PO DAILY 03/03/22 [History Last Taken Unknown] lisinopril 20 mg tablet 20 mg PO QHS #0 tabs 05/05/22 [Rx Last Taken Unknown] sennosides 8.6 mg-docusate sodium 50 mg tablet (Stool Softener-Stimulant Laxative) 2 tab PO BID #0 tabs 05/05/22 [Rx Last Taken Unknown] Allergy/AdvReac Type Severity Reaction Status Date / Time codeine Allergy Mild N/V AND Verified 07/09/22 22:37 MAKES HER FEEL REALLY SICK hydrocodone [From Vicodin] Allergy Mild N/V AND Verified 07/09/22 22:37 MAKES HER FEEL REALLY SICK Family History Mother Diabetes Kidney disease Father CVA (cerebral vascular accident) Hypertension Sister Thyroid disorder Surgical History (Updated 07/10/22 @ 03:[address] Marixa Knott MD) History of breast lump/mass excision History of carpal tunnel surgery History of hip replacement Hx of colonoscopy Hx of esophagogastroduodenoscopy Hx of hysterectomy Hx of surgical amputation of finger Hx of tonsillectomy Hx of tubal ligation Previous back surgery S/P lumpectomy, left breast Status post reverse total arthroplasty of right shoulder Social History (Updated 07/10/22 @ 03:[address] Marixa Knott MD) household members: none Smoking Status: Never smoker second hand exposure: No alcohol intake: never substance use type: does not use caffeine: Yes ROS ROS Narrative Admission Review of Systems: CONSTITUTIONAL: No weight loss, + fever, chills, weakness or fatigue. HEENT: Eyes: No visual loss, blurred vision, double vision or yellow sclerae. Ears, Nose, Throat: No hearing loss, sneezing, congestion, runny nose or sore throat. SKIN: No rash or itching, lesions, wounds. CARDIOVASCULAR: No chest pain, chest pressure or chest discomfort, palpitations, edema, orthopnea, syncopal events. RESPIRATORY: No shortness of breath, cough or sputum, wheezing, hemoptysis. GASTROINTESTINAL: + anorexia, abdominal bloating/discomfort, diarrhea, No vomiting, melena, BRBPR. GENITOURINARY: No dysuria, frequency, urgency or retention. NEUROLOGICAL: No headache, dizziness, syncope, paralysis, ataxia, numbness or tingling in the extremities, focal weakness, change in bowel or bladder control, seizure. MUSCULOSKELETAL: + muscle, back pain, joint pain or stiffness. HEMATOLOGIC: + anemia, bleeding or bruising. LYMPHATICS: No enlarged nodes. No history of splenectomy. PSYCHIATRIC: No history of depression or anxiety. ENDOCRINOLOGIC: No reports of sweating, cold or heat intolerance. No polyuria or polydipsia. ALLERGIES: No history of asthma, hives, eczema or rhinitis. Vital Signs Vital Signs Vital Signs: 07/09/22 22:33 07/09/22 22:48 07/09/22 22:50 Temperature 99.6 F H 99.2 F H Temperature Source Temporal Oral Pulse Rate 110 H Respiratory Rate 16 Respiratory Pattern Normal Blood Pressure 135/89 H Blood Pressure Mean 104 Pulse Ox 96 Oxygen Delivery Method Room Air 07/10/22 00:14 07/10/22 00:15 07/10/22 00:15 Temperature 99.2 F H 99.2 F H Temperature Source Oral Oral Pulse Rate 89 Respiratory Rate 18 Respiratory Pattern Blood Pressure 138/90 H Blood Pressure Mean 106 Pulse Ox 96 96 Oxygen Delivery Method Room Air Room Air 07/10/22 01:26 07/10/22 02:04 Temperature Temperature Source Pulse Rate 71 82 Respiratory Rate 18 18 Respiratory Pattern Blood Pressure 101/56 L 111/52 L Blood Pressure Mean 71 71 Pulse Ox 95 93 Oxygen Delivery Method Room Air Room Air Weight Weight: 236 lb Body Mass Index (BMI) 41.8 Physical Exam Narrative Physical Examination: General: Awake, alert, oriented x 3 and cooperative, laying in the ED bed, fatigued, no acute distress Skin: Normal color, normal turgor, no icterus, no cyanosis. HEENT: AT/NC, EOMI, PERRLA, mildly dry MM, no carotid bruits or JVD noted. Lungs: Mildly diminished, greater bases, appropriate effort, no rales, ronchi or wheezing. Heart: Improved, currently regular rate and rhythm; no gallop, rub audible. Abdomen: Soft, morbidly obese, mild generalized discomfort to palpation, notably tympanitic, mildly to moderately distended, hyperactive bowel sounds, no obvious HSM however habitus and distention makes evaluation difficult. Extremities: No cyanosis, clubbing, or edema. Neurological: Patient awake, alert, oriented as noted, cognitive function intact; pupils equally reactive to light and accommodation, cranial nerves II-XII grossly normal, moving all 4 extremities, no focal deficits, strength moderately global decrease secondary to acute presentation. Psychiatric: Affect appears fatigued, no acute evidence of depressive or anxiety feelings. Results Lab / Micro Data Result Diagrams: 07/09/22 23:50 07/09/22 23:50 Labs: Laboratory Results - last 24 hr 07/09/22 23:50: WBC 0.7 L*, RBC 3.30 L, Hgb 9.4 L, Hct 29.6 L, MCV 89.7, MCH 28.5, MCHC 31.8 L, RDW Std Deviation 45.1 H, RDW Coeff of Tj 13.7, Plt Count 59 L, MPV 11.5, Immature Gran % (Auto) 0.000, Neut % (Auto) 27.8 L, Lymph % (Auto) 52.3 H, [place] % (Auto) 13.8 H, Eos % (Auto) 4.6, Baso % (Auto) 1.5 H, Absolute Neuts (auto) 0.2 L, Absolute Lymphs (auto) 0.34 L, Nucleated RBC % 0, Differential Comment SCANNED, Diff Path Review March foll 07/09/22 23:50: Sodium 132 L, Potassium 4.0, Chloride 99, Carbon Dioxide 27.0, Anion Gap 6, BUN 11, Creatinine 0.77, Estim Creat Clear Calc 44.54, Est GFR (MDRD) Af Amer 96, Est GFR (MDRD) Non-Af 79, BUN/Creatinine Ratio 14.3, Glucose 158 H, Calcium 8.0 L, Total Bilirubin 0.70, AST 13 L, ALT 17, Alkaline Phosphatase 62, Total Protein 6.3 L, Albumin 2.8 L, Globulin 3.5, Albumin/Globulin Ratio 0.8 L 07/10/22 00:01: Lactic Acid 1.4 07/10/22 00:06: Urine Color Yellow, Urine Clarity Clear, Urine pH 7.0, Ur Specific [place] 1.005, Urine Protein Negative, Urine Glucose (UA) Normal, Urine Ketones Negative, Urine Occult Blood Negative, Urine Nitrite Negative, Urine Bilirubin Negative, Urine Urobilinogen Normal, Ur Leukocyte Esterase Negative, Urine RBC 0 SEEN, Urine WBC 0 SEEN, Ur Squamous Epith Cells 0 SEEN, Urine Bacteria 0 SEEN, Urine Mucus 0 SEEN Micro: Microbiology 07/09/22 23:50 Nasal Secretion SARS-CoV-2 & FLU Antigen (Rapid) - Final Rhythm Strip Rhythm Strip: Sinus Tach Rate: 105 Ectopy: None Radiology Impression Chest X-Ray 07/10/22 00:00 IMPRESSION: No active disease. Electronically Signed: Jeremy Ayala MD at 0:23 EDT , Assessment & Plan Assessment/Plan (1) Neutropenic fever: PLAN: Plan The patient is a 66 y/o F w/ PMHx: Morbid Obesity, GERD, Chronic normocytic anemia, HTN, HLD, Migraine headaches, Prior L Breast CA s/p lumpectomy and radiation 2015 with recent 05/04/22 diagnosis of recurrent Breast CA, R sided, noted to be triple negative with recent initiation of chemotherapy starting this past week with onset starting Monday fatigue, malaise, sore throat, chills, notable increased sleep requirments with increased abdominal bloating and loose stools although she does report recent prior miralax x 1 but nothing since and ongoing loose stools with onset fevers up to 102.4 at home starting Monday, not improving prompting evaluation per recommendation of her oncology service. #1. Neutropenic fever with Recent R Triple Negative Breast CA diagnosis, started on chemotherapy, unclear source with concurrent pancytopenia: Admission CBC w/ WBC 0.7, hemoglobin 9.4, MCV 89.7, platelet 59 with neutropenia and lymphopenia, CXR w/ no acute cardiopulmonary findings, UA w/ no obvious evidence of any infection. Bld cx and UCx pending. Oncology aware, consult pending. Will admit to medical surgical floor, maintain on Neutropenic precautions, obtain mag and phos level given recent chemotherapy treatments, maintain I&Os, treat with IV vancomycin and Zosyn pending cultures. PRN tylenol, anti-emetics, pain regimen. Procalcitonin pending. Respiratory viral panel requested. Given complaints will also request if recurrent diarrhea cidff and enteric as well as COVID PCR. #2. Hyperglycemia, mild: Admission glucose 158, possibly stress response, hemoglobin A1c requested. #3. Hypertension: Continue home regimen including lisinopril with hold parameters, PRN hydralazine. #4. Hyperlipidemia: Not on any regimen, defer to outpatient. #5. GERD: We will continue patient home PPI. #6. Morbid Obesity: Weight loss and lifestyle changes encouraged. #7. DVT prophylaxis: SCDs, defer chemoprophylaxis given acute presentation with pancytopenia with notable thrombocytopenia. #8. CODE status: Patient HCPOA is not set up however patient does have a living will in place. Given her recently diagnosis with breast cancer strongly encouraged her to consider setting up healthcare power of real estate associate attorney and noted that case management/social work could assist with information. Discussed CODE status at length including difference between FULL code, DNR-CCA and DNR-CC status. Following discussions about the differences in these status, requested Full Code status. Advanced Care Planning Face to Face Time: 16 minutes. Charges/Coding Visit Charges OBSV E&M: 90091 Initial observation care L3 Procedures Hospitalists Procedures: 59091 Advncd Care Plan 30 Min
[2022-07-10 03:02] LABS: Magnesium 1.7 mg/dL (1.6-2.6); Phosphorus 2.2 mg/dL (2.5-4.9)
[2022-07-10] MEDS: 0.9% Normal Saline 1,000 ML 125 ML IV ×2 (03:43→10:07)
--- NOTE | 2022-07-10 03:56 | PCM.RX.CS ---
Consult Pharmacy has been consulted to manage selected antiobiotic: Vancomycin Type of Consult: New start Labs: Sodium 132 mmol/L (136-145) L 07/09/22 23:50 Potassium 4.0 mmol/L (3.5-5.1) 07/09/22 23:50 Chloride 99 mmol/L (98-107) 07/09/22 23:50 Carbon Dioxide 27.0 mmol/L (21.0-32.0) 07/09/22 23:50 Anion Gap 6 (5-15) 07/09/22 23:50 BUN 11 mg/dL (7-18) 07/09/22 23:50 Creatinine 0.77 mg/dL (0.55-1.02) 07/09/22 23:50 Est GFR (MDRD) Af Amer 96 mL/min (>60) 07/09/22 23:50 Est GFR (MDRD) Non-Af 79 mL/min (>60) 07/09/22 23:50 BUN/Creatinine Ratio 14.3 RATIO (10-20) 07/09/22 23:50 Glucose 158 mg/dL (74-106) H 07/09/22 23:50 Microbiology: Microbiology 07/09/22 23:50 Nasal Secretion SARS-CoV-2 & FLU Antigen (Rapid) - Final Weight used for dosin.9 kg Estimated Creatinine Clearance: 82.4 Goal Trough: 15-20 mcg/mL Pharmacy Plan for Drug Dosing: Pharmacy Service will continue to monitor and adjust dosing as required. Medications Vancomycin HCl 1,750 mg/ (Sodium Chloride) 535 mls @ 250 mls/hr IV Q12H STAN Discontinued Medications Vancomycin HCl 1,500 mg/ (Sodium Chloride) 530 mls @ 250 mls/hr IV X1 ONE Stop: 07/10/22 03:51 Last Admin: 07/10/22 03:01 Dose: 250 mls/hr Follow-Up Labs: Trough Vancomycin Labs to be done on [date and time ordered]: 07/11 @ 1430
[2022-07-10 06:11] LABS: Absolute Lymphocyte Count 0.37 X10^3/uL (0.83-4.51); Absolute Neutrophil Count 0.2 X10^3/uL (2.0-7.7); Basophil# 0.01 X10^3/uL; Basophil% 1.4 % (0-1); Eosinophil# 0.03 X10^3/uL; Eosinophils% 4.3 % (0-5); Hematocrit 25.3 % (37-47); Hemoglobin 8.2 g/dL (12.0-15.0); Lymphocyte # 0.37 X10^3/ul (0.83-4.51); Lymphocyte % 53.6 % (19-41); Mean Corp Hgb Conc 32.4 g/dL (32-36); Mean Corpuscular Hgb 28.7 pg (27.0-32.0); Mean Corpuscular Volume 88.5 fL (81-99); Mean Platelet Vol. 10.7 fl (6.2-12.0); Monocyte# 0.07 X10^3/uL; Monocyte% 10.1 % (0-10); NRBC Flagged by Analyzer 0 % (0-5); Neutrophil % 29.2 % (47-70); POSITIVE COUNT YES; POSITIVE DIFFERENTIAL YES; POSITIVE MORPHOLOGY YES; Platelet Count 52 K/mm3 (150-450); RBC Distribution Width CV 13.7 % (11.6-14.6); RBC Distribution Width SD 44.5 fl (35.1-43.9); Red Blood Count 2.86 M/mm3 (4.2-5.4)
[2022-07-10 06:28] LABS: Differential Indicated SCAN CRITERIA MET
[2022-07-10 06:29] LABS: White Blood Count 0.7 K/mm3 (4.4-11.0)
[2022-07-10 06:37] LABS: ALB/GLOB Ratio 0.7 RATIO (0.9-2.4); AST(SGOT) 11 U/L (15-37); Alanine Aminotransfer ALT/SGPT 17 U/L (13-56); Albumin, Serum 2.4 g/dL (3.2-5.0); Alkaline Phosphatase 54 U/L (45-117); Anion Gap 6 (5-15); BUN 9 mg/dL (7-18); BUN/Creat Ratio 14.8 RATIO (10-20); Calcium,Total 7.4 mg/dL (8.5-10.1); Chloride 102 mmol/L (98-107); Creatinine, Serum 0.61 mg/dL (0.55-1.02); EST Glomerular Filtration Rate 104 mL/min (>60); Est Glom Filt Rate - Afr Amer 125 mL/min (>60); Estimated Creatinine Clearance 44.54 ml/min; Globulin 3.3 g/dL (2.2-4.2); Glucose 110 mg/dL (74-106); Potassium 3.5 mmol/L (3.5-5.1); Protein, Total 5.7 g/dL (6.4-8.2); Sodium Level 135 mmol/L (136-145)
[2022-07-10 07:06] LABS: Differential Comment SCANNED
[2022-07-10 08:17] LABS: Hemoglobin A1c 5.6 % (3.8-5.6)
[2022-07-10 09:40] LABS: Procalcitonin 0.11 ng/mL (0.00-0.09)
[2022-07-10] MEDS: Pantoprazole Sodium 20 MG Tablet PO (10:06)
[2022-07-10] MEDS: Sertraline 50 MG Tablet 25 MG PO (10:07)
--- NOTE | 2022-07-10 11:44 | PCM.PN.HOSP ---
Subjective Subjective Follow-up for neutropenic fever complicated with pancytopenia. Patient feels well temperature is 97-98 Fahrenheit. But was admitted with fever temperature 102.4 Fahrenheit at on the day of admission. Patient had diarrhea started on Monday morning which progressed to vomiting and nausea in the afternoon. No abdominal pain or cramps. Currently diarrhea is getting better but she still has loose bowel movement. Yesterday she started feeling chills and fever. She had the first chemo. Denies any bony pain or bony metastasis or lung metastasis of CA breast Objective Data Objective Data Vital Signs: Vital Signs Temp Pulse Resp BP Pulse Ox O2 Del Method 98.6 F 94 20 H 146/74 H 96 Room Air 07/10/22 03:18 07/10/22 03:18 07/10/22 03:18 07/10/22 03:18 07/10/22 03:18 07/10/22 03:18 Oxygen Delivery Method Room Air Weight: 238 lb 5.115 oz Body Mass Index (BMI) 42.1 Intake & Output: Intake and Output for Last 24 Hours 07/08/22 07/09/22 07/10/22 23:59 23:59 23:59 Intake Total 580 / 580 Balance 580 / 580 Lab / Micro Data Result Diagrams: 07/10/22 05:15 07/10/22 05:15 Labs: Laboratory Results - last 24 hr 07/09/22 23:50: WBC 0.7 L*, RBC 3.30 L, Hgb 9.4 L, Hct 29.6 L, MCV 89.7, MCH 28.5, MCHC 31.8 L, RDW Std Deviation 45.1 H, RDW Coeff of Tj 13.7, Plt Count 59 L, MPV 11.5, Immature Gran % (Auto) 0.000, Neut % (Auto) 27.8 L, Lymph % (Auto) 52.3 H, [place] % (Auto) 13.8 H, Eos % (Auto) 4.6, Baso % (Auto) 1.5 H, Absolute Neuts (auto) 0.2 L, Absolute Lymphs (auto) 0.34 L, Nucleated RBC % 0, Differential Comment SCANNED, Diff Path Review March07/09/22 23:50: Sodium 132 L, Potassium 4.0, Chloride 99, Carbon Dioxide 27.0, Anion Gap 6, BUN 11, Creatinine 0.77, Estim Creat Clear Calc 44.54, Est GFR (MDRD) Af Amer 96, Est GFR (MDRD) Non-Af 79, BUN/Creatinine Ratio 14.3, Glucose 158 H, Calcium 8.0 L, Total Bilirubin 0.70, AST 13 L, ALT 17, Alkaline Phosphatase 62, Total Protein 6.3 L, Albumin 2.8 L, Globulin 3.5, Albumin/Globulin Ratio 0.8 L 07/09/22 23:50: Phosphorus 2.2 L, Magnesium 1.7 07/10/22 00:01: Lactic Acid 1.4 07/10/22 00:06: Urine Color Yellow, Urine Clarity Clear, Urine pH 7.0, Ur Specific [place] 1.005, Urine Protein Negative, Urine Glucose (UA) Normal, Urine Ketones Negative, Urine Occult Blood Negative, Urine Nitrite Negative, Urine Bilirubin Negative, Urine Urobilinogen Normal, Ur Leukocyte Esterase Negative, Urine RBC 0 SEEN, Urine WBC 0 SEEN, Ur Squamous Epith Cells 0 SEEN, Urine Bacteria 0 SEEN, Urine Mucus 0 SEEN 07/10/22 04:30: COVID-19 (JO) Not Detected 07/10/22 05:15: WBC 0.7 L*, RBC 2.86 L, Hgb 8.2 L, Hct 25.3 L, MCV 88.5, MCH 28.7, MCHC 32.4, RDW Std Deviation 44.5 H, RDW Coeff of Tj 13.7, Plt Count 52 L, MPV 10.7, Immature Gran % (Auto) 1.400 H, Neut % (Auto) 29.2 L, Lymph % (Auto) 53.6 H, [place] % (Auto) 10.1 H, Eos % (Auto) 4.3, Baso % (Auto) 1.4 H, Absolute Neuts (auto) 0.2 L, Absolute Lymphs (auto) 0.37 L, Nucleated RBC % 0, Differential Comment SCANNED, Diff Path Review March07/10/22 05:15: Sodium 135 L, Potassium 3.5, Chloride 102, Carbon Dioxide 27.0, Anion Gap 6, BUN 9, Creatinine 0.61, Estim Creat Clear Calc 44.54, Est GFR (MDRD) Af Amer 125, Est GFR (MDRD) Non-Af 104, BUN/Creatinine Ratio 14.8, Glucose 110 H, Calcium 7.4 L, Total Bilirubin 0.70, AST 11 L, ALT 17, Alkaline Phosphatase 54, Total Protein 5.7 L, Albumin 2.4 L, Globulin 3.3, Albumin/Globulin Ratio 0.7 L Micro: Microbiology 07/09/22 23:50 Nasal Secretion SARS-CoV-2 & FLU Antigen (Rapid) - Final Radiography Diagnostic Testing: Radiology Impression Chest X-Ray 07/10/22 00:00 IMPRESSION: No active disease. Electronically Signed: Jeremy Ayala MD at 0:23 EDT , Rhythm Strip Rhythm Strip: Sinus Tach Rate: 105 Ectopy: None Physical Exam Narrative Seen and examined. General: Alert, Oriented x3, Cooperative HEENT: Atraumatic, PERRLA, EOMI, Normocephalic Oral: Oral mucosa is moist. Wears upper denture. No Gingival or Mucosal Lesions/ Ulcerations Neck: Supple, No JVD, Negative Carotid Bruits Chest/lungs: Mediport over left upper chest. No signs of cellulitis or tenderness. Air entry diminished in bilateral lung bases. No crepitation/rhonchi Cardiovascular: Regular rate, Regular Rhythm, Normal S1, Normal S2, No murmurs Abdomen: Bowel Sounds Present, Soft, Non Tender, Non-Distended : No renal angle tenderness. No suprapubic tenderness. Extremities: No edema, Capillary Refill Less than 3 Seconds Skin: No rashes, No breakdown. No bruise or hematoma. Musculoskeletal: No Tenderness to Palpation of Joints or Extremities Neurological: Cranial nerves II-XII grossly intact, DTR 2+/4 and Symmetrical, Neuro grossly intact Psych/Mental Status: Normal Affect, Appropriate. Assessment & Plan Assessment/Plan (1) Neutropenic fever: PLAN: Plan The patient is a 66 y/o F was admitted with fever for 1 day along with sore throat, fatigue, malaise, increased sleep, abdominal bloating and loose stool. Her fever was 102.4 F at home on 07/09/2022 #1. Neutropenic fever with with history of Triple Negative, right Breast CA diagnosis, status post recent chemotherapy with concurrent pancytopenia: Patient has severe neutropenia, total WBC count 0.7, ANC 0.2, ALC 0.34. H&H 9.4/29.6, platelet count 59,000 due to once episode from recent chemotherapy. Patient also has acute on chronic normocytic normochromic anemia. Severe thrombocytopenia suggestive of pancytopenia. Patient baseline hemoglobin surrounds around 12 g, WBC count 6000 and platelet count 242,000 as per CBC of 05/02/2021. Lactic acid normal. Respiratory panel normal. Last echo in February 2022 reported EF 65%, mild LAE, trivial MR and TR. 2. Acute gastroenteritis probably inflammatory due to chemotherapeutic side effect with hypotonic hypovolemic hyponatremia, hypokalemia, hypophosphatemia due to diarrhea: Patient started having diarrhea on 07/08/22 AM that followed with vomiting. She still has mild abdominal bloating symptoms but no vomiting. Diarrhea is improving but she still has loose bowel movement. Enteric bacteriology panel negative. Sodium 132, K3.5, magnesium 1.7 phosphorus 2.2. Electrolytes are getting replaced in order to keep titrate optimal level 3. Left breast cancer with recurrence to right breast cancer: History left breast cancer status postlumpectomy, radiotherapy 2016 with recent diagnosis of recurrence in right breast in May 02 to , noted to be triple negative. Patient recently is started on chemotherapy about 1 week prior to admission. #4. Hyperglycemia, mild: Admission glucose 158, possibly stress response, hemoglobin A1c 5.6%, normal #5. Hypertension: Continue home regimen including lisinopril with hold parameters, PRN hydralazine. #6. Hyperlipidemia: Not on any regimen, follow-up outpatient #7. GERD: l continue patient home PPI. #8. Morbid Obesity: Weight loss and lifestyle changes encouraged. DVT prophylaxis: SCDs, defer chemoprophylaxis given acute presentation with pancytopenia with notable thrombocytopenia. . CODE status: Patient HCPOA is not set up however patient does have a living will in place. Full code Total time of the visit including total time spent in counseling or coordination of care, (more than 50% of the total time, spent in obtaining medical information from nurses and other ancillary care providers,explaining to the patient about labs, imaging, diagnosis and management of active complex medical conditions), discussion with patient's oncologist Dr. Jones regarding patient's breast cancer natural history, medical records review, review of labs and imaging is 45 minutes. Microbiology Past 72 Hours 07/10/22 04:35 Stool Enteric Bacteriology - Final 07/10/22 04:30 Mucosa - Nasopharyngeal Respiratory Panel (PCR) - Final 07/09/22 23:50 Nasal Secretion SARS-CoV-2 & FLU Antigen (Rapid) - Final Laboratory Results 07/09/22 23:50: WBC 0.7 L*, RBC 3.30 L, Hgb 9.4 L, Hct 29.6 L, MCV 89.7, MCH 28.5, MCHC 31.8 L, RDW Std Deviation 45.1 H, RDW Coeff of Tj 13.7, Plt Count 59 L, MPV 11.5, Immature Gran % (Auto) 0.000, Neut % (Auto) 27.8 L, Lymph % (Auto) 52.3 H, [place] % (Auto) 13.8 H, Eos % (Auto) 4.6, Baso % (Auto) 1.5 H, Absolute Neuts (auto) 0.2 L, Absolute Lymphs (auto) 0.34 L, Nucleated RBC % 0, Differential Comment SCANNED, Diff Path Review March foll 07/09/22 23:50: Sodium 132 L, Potassium 4.0, Chloride 99, Carbon Dioxide 27.0, Anion Gap 6, BUN 11, Creatinine 0.77, Estim Creat Clear Calc 44.54, Est GFR (MDRD) Af Amer 96, Est GFR (MDRD) Non-Af 79, BUN/Creatinine Ratio 14.3, Glucose 158 H, Calcium 8.0 L, Total Bilirubin 0.70, AST 13 L, ALT 17, Alkaline Phosphatase 62, Total Protein 6.3 L, Albumin 2.8 L, Globulin 3.5, Albumin/Globulin Ratio 0.8 L 07/09/22 23:50: Phosphorus 2.2 L, Magnesium 1.7 07/10/22 00:01: Lactic Acid 1.4 07/10/22 00:06: Urine Color Yellow, Urine Clarity Clear, Urine pH 7.0, Ur Specific [place] 1.005, Urine Protein Negative, Urine Glucose (UA) Normal, Urine Ketones Negative, Urine Occult Blood Negative, Urine Nitrite Negative, Urine Bilirubin Negative, Urine Urobilinogen Normal, Ur Leukocyte Esterase Negative, Urine RBC 0 SEEN, Urine WBC 0 SEEN, Ur Squamous Epith Cells 0 SEEN, Urine Bacteria 0 SEEN, Urine Mucus 0 SEEN 07/10/22 04:30: COVID-19 (JO) Not Detected 07/10/22 05:15: WBC 0.7 L*, RBC 2.86 L, Hgb 8.2 L, Hct 25.3 L, MCV 88.5, MCH 28.7, MCHC 32.4, RDW Std Deviation 44.5 H, RDW Coeff of Tj 13.7, Plt Count 52 L, MPV 10.7, Immature Gran % (Auto) 1.400 H, Neut % (Auto) 29.2 L, Lymph % (Auto) 53.6 H, [place] % (Auto) 10.1 H, Eos % (Auto) 4.3, Baso % (Auto) 1.4 H, Absolute Neuts (auto) 0.2 L, Absolute Lymphs (auto) 0.37 L, Nucleated RBC % 0, Differential Comment SCANNED, Diff Path Review March07/10/22 05:15: Sodium 135 L, Potassium 3.5, Chloride 102, Carbon Dioxide 27.0, Anion Gap 6, BUN 9, Creatinine 0.61, Estim Creat Clear Calc 44.54, Est GFR (MDRD) Af Amer 125, Est GFR (MDRD) Non-Af 104, BUN/Creatinine Ratio 14.8, Glucose 110 H, Calcium 7.4 L, Total Bilirubin 0.70, AST 11 L, ALT 17, Alkaline Phosphatase 54, Total Protein 5.7 L, Albumin 2.4 L, Globulin 3.3, Albumin/Globulin Ratio 0.7 L 07/10/22 05:15: Hemoglobin A1c 5.6 07/10/22 08:39: Procalcitonin 0.11 H Charges/Coding Procedures Hospitalists Procedures: [id number] Prolonged InPt Service; first hour
[2022-07-10] MEDS: TBO-FILGRASTIM 480 MCG/0.8 ML ML SC (13:32)
[2022-07-10] MEDS: Magnesium Chloride 64 MG Delay Rel.Tablet 128 MG PO ×2 (13:34→21:57)
[2022-07-10] MEDS: Loratadine 10 MG Tablet PO (15:25)
[2022-07-10] MEDS: Hydrocortisone 25 MG Suppository RC (15:25)
--- NOTE | 2022-07-10 17:28 | NURSING ---
in to round on patient. noted kphos bag was clamped, vancomycin near complete and zosyn had already been infused. pt c/o feeling cold and eating. vs checked, warm blanket given. no further needs verbalized. call light within reach.
[2022-07-10] MEDS: Lisinopril 10 MG Tablet PO (21:57)
[2022-07-11] MEDS: 0.9% Normal Saline 1,000 ML 125 ML IV (00:06)
[2022-07-11 03:27] VITALS: BP 139/83; PULSE 89; RESP 20; TEMP 36.5; O2SAT 96
[2022-07-11 06:17] LABS: Hematocrit 26.2 % (37-47); Hemoglobin 8.4 g/dL (12.0-15.0); Mean Corp Hgb Conc 32.1 g/dL (32-36); Mean Corpuscular Hgb 28.6 pg (27.0-32.0); Mean Corpuscular Volume 89.1 fL (81-99); Mean Platelet Vol. 11.1 fl (6.2-12.0); POSITIVE COUNT YES; POSITIVE DIFFERENTIAL YES; POSITIVE MORPHOLOGY YES; Platelet Count 57 K/mm3 (150-450); RBC Distribution Width CV 13.6 % (11.6-14.6); RBC Distribution Width SD 44.7 fl (35.1-43.9); Red Blood Count 2.94 M/mm3 (4.2-5.4); White Blood Count 2.2 K/mm3 (4.4-11.0)
[2022-07-11 06:53] LABS: Differential Indicated MANUAL DIFF
[2022-07-11 07:10] LABS: Anion Gap 6 (5-15); BUN 13 mg/dL (7-18); BUN/Creat Ratio 18.5 RATIO (10-20); Calcium,Total 7.8 mg/dL (8.5-10.1); Chloride 110 mmol/L (98-107); EST Glomerular Filtration Rate 88 mL/min (>60); Est Glom Filt Rate - Afr Amer 106 mL/min (>60); Estimated Creatinine Clearance 44.54 ml/min; Glucose 88 mg/dL (74-106); Magnesium 1.7 mg/dL (1.6-2.6); Potassium 3.5 mmol/L (3.5-5.1); Sodium Level 140 mmol/L (136-145)
[2022-07-11 07:24] LABS: Platelet Estimate MOD DEC (ADEQ); Red Cell Morphology NORM C+C NORMAL (NORM C&C)
[2022-07-11 07:27] LABS: Absolute Neutrophil Count 1.4 X10^3/uL (2.0-7.7)
[2022-07-11 07:28] LABS: Absolute Lymphocyte Count 0.42 X10^3/uL (0.83-4.51); Eosinophil 2 % (0-5); Lymphocyte 19 % (19-41); Metamyelocyte 1 % (0-1); Monocyte 9 % (0-10); Myelocyte 7 % (0-0); Neutrophil-Band 16 % (0-5); Neutrophil-Segmented 46 % (47-70); Total Cells Counted 100 (MANUAL DIFF)
[2022-07-11 07:37] LABS: Phosphorus 2.9 mg/dL (2.5-4.9)
[2022-07-11 08:04] VITALS: BP 153/79; PULSE 87; RESP 18; TEMP 37.1; O2SAT 96
--- NOTE | 2022-07-11 09:38 | CASEMGMT ---
Addendum entered by Christel Mota 07/11/22 10:31: Patient Link referral made. Original Note: RN CM Assessment: Face to Face with pt for initial transition planning/care coordination assessment. RN CM introduced self and role at [facility], pt voices understanding and consents to assessment. Pt is A/O x4 and answers all questions appropriately at this time. Pt sitting up in chair in no distress. Care providers, pharmacy, and demographics verified/updated. Admitting Dx: neutropenic fever PCP:Beverly Colunga NP Specialists:Jaskaran, breast surgeon; Karen, onc; Frausto, ortho (hip); [place] ortho (back); Jesu, ortho (shoulder); [place], cardio Preferred Pharmacy: [email or web address] Insurance: [facility], [place] Prescription Benefit: yes LW/HPOA: Pt denies having a DPOA and denies need for info regarding AD. She thinks she may have a LW but is not sure. She is aware this is not on file at [facility] and if she has one and would want to bring in, it could be scanned into her chart. LNOK: Laquita Montano, dtr; Tato Christianson, sig other Living Arrangements: Pt lives with sig other, dtr, 17 year old grandson and 7 year old granddtr in a two story house with a ramp to enter in the back and one step with grab bar in the front. Pt reports she is I in ADL's and denies concerns at home. Transportation: Pt drives self and denies concerns with transportation. DME/HHC/SNF: Pt has a bed rail, cane, rollator, handicap accessible bathroom and an electric w/c (doesn't use). Pt denies hx of HHC and has rehab at a facility in [place]. Pt states no concerns with going home at time of dc. Pt states she had shoulder surgery approx 9 wks ago and has been going to [facility] for therapy. Pt states she has one more session she will attend and then she is going to be given exercises to do at home since she started chemo. Pt states she will soon have a double mastectomy. Pt states no further concerns/needs. CM to follow. Advised pt to ask CM if any further question/concerns/needs arise, voices understanding. Pt Goal: Home Plan: Home
--- NOTE | 2022-07-11 09:55 | PN.HOSP_ITS ---
Subjective Subjective Feeling a little bit better, her absolute neutrophil count is up to 1.4 and she is afebrile. She also states that her stool has started to solidify. Cultures are still pending therefore we will continue with broad-spectrum antibiotics at this point we will also continue with her colony-stimulating factor as well Objective Data Objective Data Vital Signs: Vital Signs Temp Pulse Resp BP Pulse Ox O2 Del Method 98.8 F 87 18 153/79 H 96 Room Air 07/11/22 08:04 07/11/22 08:04 07/11/22 08:04 07/11/22 08:04 07/11/22 08:04 07/11/22 08:42 Oxygen Delivery Method Room Air Weight: 239 lb 10.279 oz Body Mass Index (BMI) 42.1 Intake & Output: Intake and Output for Last 24 Hours 07/10/22 07/11/22 07/12/22 03:59 03:59 03:59 Intake Total 50 / 50 4955.41 / 4955.41 635 / 635 Balance 50 / 50 4955.41 / 4955.41 635 / 635 Lab / Micro Data Result Diagrams: 07/11/22 05:35 07/11/22 05:35 Labs: Laboratory Results - last 24 hr 07/11/22 05:35: WBC 2.2 L, RBC 2.94 L, Hgb 8.4 L, Hct 26.2 L, MCV 89.1, MCH 28.6, MCHC 32.1, RDW Std Deviation 44.7 H, RDW Coeff of Tj 13.6, Plt Count 57 L , MPV 11.1, Neut % (Auto) Not Reportable, Absolute Neuts (auto) 1.4 L, Absolute Lymphs (auto) 0.42 L, Total Counted 100, Neutrophils % (Manual) 46 L, Band Neutrophils % 16 H, Lymphocytes % (Manual) 19, Monocytes % (Manual) 9, Eosinophils % (Manual) 2, Metamyelocytes % 1, Myelocytes % 7 H, Diff Path Review May foll, Platelet Estimate MOD DEC, RBC Morphology NORM C+C 07/11/22 05:35: Sodium 140, Potassium 3.5, Chloride 110 H, Carbon Dioxide 24.0, Anion Gap 6, BUN 13, Creatinine 0.70, Estim Creat Clear Calc 44.54, Est GFR (MDRD) Af Amer 106, Est GFR (MDRD) Non-Af 88, BUN/Creatinine Ratio 18.5, Glucose 88, Calcium 7.8 L, Magnesium 1.7 07/11/22 05:35: Phosphorus 2.9 Micro: Microbiology 07/10/22 12:08 Stool C. difficile DNA Amplification - Final 07/10/22 04:35 Stool Enteric Bacteriology - Final 07/10/22 04:30 Mucosa - Nasopharyngeal Respiratory Panel (PCR) - Final 07/09/22 23:50 Nasal Secretion SARS-CoV-2 & FLU Antigen (Rapid) - Final Rhythm Strip Rhythm Strip: Sinus Tach Rate: 105 Ectopy: None Physical Exam Narrative General: Alert, Oriented x3, Cooperative, No apparent distress HEENT: Atraumatic, PERRLA, EOMI, Normocephalic Oral: Moist Mucosa Neck: Supple, No JVD Lungs: Clear to auscultation, Normal air movement, No rhonchi, No wheeze, No rales Cardiovascular: Regular rate, Regular Rhythm, Normal S1, Normal S2, No murmurs Abdomen: Soft, Non Tender, Non-Distended, No Hepato-splenomegaly Extremities: No edema, Capillary Refill Less than 3 Seconds Skin: No rashes, No breakdown Musculoskeletal: No Tenderness to Palpation of Joints or Extremities Neurological: Cranial nerves II-XII grossly intact, Motor Exam 5/5 strength throughout, Sensory exam intact to light touch and pain Psych/Mental Status: Normal Affect, Appropriate Assessment & Plan Assessment/Plan (1) Neutropenic fever: PLAN: Plan 1. Neutropenic fever with a history of triple negative breast cancer with chemotherapy/acute gastroenteritis ? Her gastroenteritis is likely related to her chemotherapy, C. difficile and enteric pathogens are negative therefore can start her on Imodium ? Blood and urine cultures are still pending ? Absolute neutrophil count is improving, continue with G-CSF ? Continue with broad-spectrum antibiotics until cultures are finalized 2. HTN/HLD ? Blood pressures are stable ? Continue with lisinopril 3. GERD ? Stable ? Continue with PPI 4. Anxiety/depression ? Stable ? Continue with her home Zoloft DVT: SCDs Charges/Coding Visit Charges Inpatient E&M: 76953 Subs Hosp L2
[2022-07-11] MEDS: Magnesium Chloride 64 MG Delay Rel.Tablet 128 MG PO ×2 (10:30→21:12)
[2022-07-11] MEDS: Sertraline 50 MG Tablet 25 MG PO (10:30)
[2022-07-11] MEDS: Pantoprazole Sodium 20 MG Tablet PO (10:30)
[2022-07-11] MEDS: TBO-FILGRASTIM 300 MCG/0.5 ML ML SC (10:37)
[2022-07-11 14:05] VITALS: BP 145/83; PULSE 75; RESP 18; TEMP 37.1; O2SAT 96
[2022-07-11 15:02] VITALS: O2SAT 95
[2022-07-11 15:31] LABS: Vancomycin, Trough Level 22.3 ug/mL (5.0-15.0)
--- NOTE | 2022-07-11 15:39 | PCM.RX.CS ---
Consult Pharmacy has been consulted to manage selected antiobiotic: Vancomycin Type of Consult: Follow-up Labs: Sodium 140 mmol/L (136-145) 07/11/22 05:35 Potassium 3.5 mmol/L (3.5-5.1) 07/11/22 05:35 Chloride 110 mmol/L (98-107) H 07/11/22 05:35 Carbon Dioxide 24.0 mmol/L (21.0-32.0) 07/11/22 05:35 Anion Gap 6 (5-15) 07/11/22 05:35 BUN 13 mg/dL (7-18) 07/11/22 05:35 Creatinine 0.70 mg/dL (0.55-1.02) 07/11/22 05:35 Est GFR (MDRD) Af Amer 106 mL/min (>60) 07/11/22 05:35 Est GFR (MDRD) Non-Af 88 mL/min (>60) 07/11/22 05:35 BUN/Creatinine Ratio 18.5 RATIO (10-20) 07/11/22 05:35 Glucose 88 mg/dL (74-106) 07/11/22 05:35 Vancomycin Trough 22.3 ug/mL (5.0-15.0) H 07/11/22 14:30 Microbiology: Microbiology 07/10/22 00:06 Urine, Clean Catch Urine Culture - Final Mixed Gram Pos & Gram Neg Org 07/10/22 12:08 Stool C. difficile DNA Amplification - Final 07/10/22 04:35 Stool Enteric Bacteriology - Final 07/10/22 04:30 Mucosa - Nasopharyngeal Respiratory Panel (PCR) - Final 07/09/22 23:50 Nasal Secretion SARS-CoV-2 & FLU Antigen (Rapid) - Final Goal Trough: 15-20 mcg/mL Pharmacy Plan for Drug Dosing: VANCOMYCIN LEVEL RECEIVED Current Vancomycin Dose: 1750MG IV Q12HR Number of Doses Received: 3 (initial + 2 scheduled) Vancomycin Level: 22.3 Hours Since Last Dose: 23hr Renal Function: 0.7 Renal Function Trend: stable Lab/Micro: NGTD, cultures not finalized yet Vancomycin Plan/Comments: Patient had a trough drawn which resulted in a value of 22.3 (goal 15-20). Will hold current vancomycin dose and recheck a trough ~24hrs from last administered dose. Once trough is below 20, will resume scheduled dosing per protocol. Pending Level: *RANDOM* level 07/12/22 @0300 Pharmacy Service will continue to monitor and adjust dosing as required.
[2022-07-11] MEDS: Loperamide 2 MG Capsule PO (17:57)
[2022-07-11] MEDS: Hydrocortisone 25 MG Suppository RC (19:38)
[2022-07-11 20:54] VITALS: BP 156/81; PULSE 90; RESP 18; TEMP 36.8; O2SAT 96
[2022-07-11] MEDS: MELATONIN 3 MG TABLET PO (21:10)
[2022-07-11] MEDS: Loratadine 10 MG Tablet PO (21:10)
[2022-07-11] MEDS: Lisinopril 10 MG Tablet PO (21:12)
[2022-07-12 02:22] VITALS: BP 124/89; PULSE 97; RESP 20; TEMP 36.7; O2SAT 93
[2022-07-12 03:24] LABS: Mean Corpuscular Hgb 28.7 pg (27.0-32.0); Mean Corpuscular Volume 89.6 fL (81-99); Mean Platelet Vol. 10.9 fl (6.2-12.0); POSITIVE COUNT YES; POSITIVE DIFFERENTIAL YES; POSITIVE MORPHOLOGY YES; Platelet Count 92 K/mm3 (150-450); RBC Distribution Width CV 13.7 % (11.6-14.6); Red Blood Count 2.79 M/mm3 (4.2-5.4); White Blood Count 6.5 K/mm3 (4.4-11.0)
[2022-07-12 03:25] LABS: Differential Indicated MANUAL DIFF
[2022-07-12 03:36] LABS: Anion Gap 5 (5-15); BUN 14 mg/dL (7-18); BUN/Creat Ratio 17.2 RATIO (10-20); Calcium,Total 8.1 mg/dL (8.5-10.1); Chloride 112 mmol/L (98-107); Creatinine, Serum 0.81 mg/dL (0.55-1.02); EST Glomerular Filtration Rate 74 mL/min (>60); Est Glom Filt Rate - Afr Amer 90 mL/min (>60); Estimated Creatinine Clearance 54.99 ml/min; Glucose 108 mg/dL (74-106); Potassium 3.8 mmol/L (3.5-5.1); Sodium Level 141 mmol/L (136-145)
[2022-07-12 03:37] LABS: Total Cells Counted 100 (MANUAL DIFF)
[2022-07-12 03:40] LABS: Lymphocyte 5 % (19-41); Metamyelocyte 3 % (0-1); Monocyte 9 % (0-10); Myelocyte 1 % (0-0); Neutrophil-Band 17 % (0-5); Neutrophil-Segmented 64 % (47-70); Platelet Estimate SLT DEC (ADEQ); Promyelocyte 1 % (0-0); Vancomycin, Random Level 13.6 ug/mL (0.0-15.0)
[2022-07-12 03:42] LABS: Red Cell Morphology NORM C+C NORMAL (NORM C&C)
[2022-07-12 03:43] LABS: Absolute Lymphocyte Count 0.32 X10^3/uL (0.83-4.51); Absolute Neutrophil Count 5.2 X10^3/uL (2.0-7.7); Lymphocyte # 0.32 X10^3/ul (0.83-4.51); Neutrophil # 5.22 X10^3/uL (2.7-7.7)
--- NOTE | 2022-07-12 04:44 | PCM.RX.CS ---
Consult Pharmacy has been consulted to manage selected antiobiotic: Vancomycin Type of Consult: Follow-up Labs: Sodium 141 mmol/L (136-145) 07/12/22 03:17 Potassium 3.8 mmol/L (3.5-5.1) 07/12/22 03:17 Chloride 112 mmol/L (98-107) H 07/12/22 03:17 Carbon Dioxide 24.0 mmol/L (21.0-32.0) 07/12/22 03:17 Anion Gap 5 (5-15) 07/12/22 03:17 BUN 14 mg/dL (7-18) 07/12/22 03:17 Creatinine 0.81 mg/dL (0.55-1.02) 07/12/22 03:17 Est GFR (MDRD) Af Amer 90 mL/min (>60) 07/12/22 03:17 Est GFR (MDRD) Non-Af 74 mL/min (>60) 07/12/22 03:17 BUN/Creatinine Ratio 17.2 RATIO (10-20) 07/12/22 03:17 Glucose 108 mg/dL (74-106) H 07/12/22 03:17 Vancomycin Trough 22.3 ug/mL (5.0-15.0) H 07/11/22 14:30 Random Vancomycin 13.6 ug/mL (0.0-15.0) 07/12/22 03:17 Microbiology: Microbiology 07/10/22 00:06 Urine, Clean Catch Urine Culture - Final Mixed Gram Pos & Gram Neg Org 07/10/22 12:08 Stool C. difficile DNA Amplification - Final 07/10/22 04:35 Stool Enteric Bacteriology - Final 07/10/22 04:30 Mucosa - Nasopharyngeal Respiratory Panel (PCR) - Final 07/09/22 23:50 Nasal Secretion SARS-CoV-2 & FLU Antigen (Rapid) - Final Goal Trough: 15-20 mcg/mL Pharmacy Plan for Drug Dosing: Pharmacy Service will continue to monitor and adjust dosing as required. RANDOM LEVEL 13.6. REDOSE AT 1250MG Q12H AND RECHECK TROUGH PRIOR TO 4TH DOSE Follow-Up Labs: Trough Vancomycin Labs to be done on [date and time ordered]: 07/13 @ 1633
[2022-07-12 07:38] VITALS: BP 138/84; PULSE 87; RESP 18; TEMP 37.1; O2SAT 97
[2022-07-12 07:40] VITALS: RESP 18
[2022-07-12 08:46] LABS: Pathologist Review Reviewed
[2022-07-12 08:46] LABS: Pathologist Review Reviewed
[2022-07-12 08:46] LABS: Pathologist Review Reviewed
--- NOTE | 2022-07-12 08:54 | DCINST_ITS ---
Discharge Instructions Diet Discharge Diet: No restrictions Activity Discharge Activity: Return to Normal Activity Dressing / Incision Call your doctor if you observe: Fever of 101 or Higher, Shortness of breath, Dizziness, Fainting spells, Swelling in the ankles, Chest pain and Increased palpitations (irregular heartbeat) Follow Up Care Test Results: Test results from this visit will be discussed in further detail at your follow- up appointment, if applicable. Discharge Plan Admission Admit Date/Time: 07/10/22 14:35 Attending Provider: Ramon Houser Primary Care Provider: Beverly Colunga NP Consulting Providers: Marixa Knott ; Carlos Hernandez ; Yasmany Vyas Discharge Orders/Prescriptions Prescriptions: New levofloxacin 750 mg tablet 750 mg PO Q24H Qty: 7 0RF Continued clobetasol 0.05 % cream 1 applic TOPICAL BID PRN (Reason: Skin Cleansing) multivitamin Tablet 1 tab PO DAILY omeprazole 20 MG capsule,delayed release(DR/EC) 20 mg PO DAILY Label Comments: TK 1 C PO ONCE DAILY sennosides-docusate sodium [Stool Softener-Stimulant Laxat] 8.6-50 mg Tablet 2 tab PO BID Qty: 0 0RF Rx Instructions: Take until first bowel movement, then as needed sertraline 25 mg tablet 25 mg PO DAILY Label Comments: Take 1 tablet by mouth once daily. amlodipine 2.5 mg Tablet 2.5 mg PO QHS lisinopril 30 mg Tablet 30 mg PO QHS Referrals / Follow Up: Mack Jones DO [Med Staff - Active Staff] - Within 1 Week Beverly Colunga NP, [employer] DIRECTOR-C [Primary Care Provider] - Within 1 Week Disposition Disposition (needs filled in before D/C Order can be placed): Home, Self Care
--- NOTE | 2022-07-12 08:56 | PCM.DC.SUM ---
Providers Date of Admission: 07/10/22 Primary Care Physician: MARGARITA Buchanan Consultations 07/10/22 07:00 Consult: Oncology/Hematology Routine Consulting Provider: Carlos Hernandez Reason for Consult: Neutropenic fever, on chemo, breast CA. EMERGENT Consult: No MD Notified: Yes Date Notified: 07/10/22 Time Notified: 07:28 Method of Notification: called ms3 Reason For Visit: NEUTROPENIC FEVER Diagnosis Discharge Diagnosis (1) Neutropenic fever: Status: Acute Code(s): D70.9 - Neutropenia, unspecified; R50.81 - Fever presenting with conditions classified elsewhere Plan 1. Neutropenic fever with a history of triple negative breast cancer with chemotherapy/acute gastroenteritis ? Her gastroenteritis is likely related to her chemotherapy, C. difficile and enteric pathogens are negative therefore can start her on Imodium ? Blood and urine cultures are still pending ? Absolute neutrophil count is improving, continue with G-CSF ? Continue with broad-spectrum antibiotics until cultures are finalized 2. HTN/HLD ? Blood pressures are stable ? Continue with lisinopril 3. GERD ? Stable ? Continue with PPI 4. Anxiety/depression ? Stable ? Continue with her home Zoloft DVT: SCDs Medications at Discharge Home Medications omeprazole 20 mg capsule,delayed release 20 mg PO DAILY 05/01/18 clobetasol 0.05 % topical cream 1 applic topical BID PRN Skin Cleansing 03/04/21 multivitamin 1 tab PO DAILY 03/03/22 sennosides 8.6 mg-docusate sodium 50 mg tablet (Stool Softener-Stimulant Laxative) 2 tab PO BID #0 tabs 05/05/22 amlodipine 2.5 mg tablet 2.5 mg PO QHS bp 07/10/22 lisinopril 30 mg tablet 30 mg PO QHS bp 07/10/22 sertraline 25 mg tablet 25 mg PO DAILY 07/10/22 levofloxacin 750 mg tablet 750 mg PO Q24H #7 tabs 07/12/22 Hospital Course Operations None Procedures None Summary of Care Provided Minutes Spent on Discharge: 38 Hospital Course: Per HPI:The patient is a 66 y/o F w/ PMHx: Morbid Obesity, GERD, Chronic normocytic anemia, HTN, HLD, Migraine headaches, Prior L Breast CA s/p lumpectomy and radiation 2015 with recent 05/04/22 diagnosis of recurrent Breast CA, R sided, noted to be triple negative with recent initiation of chemotherapy starting this past week with onset starting Monday fatigue, malaise, sore throat, chills, notable increased sleep requirments with increased abdominal bloating and loose stools although she does report recent prior miralax x 1 but nothing since and ongoing loose stools with onset fevers up to 102.4 at home starting Monday, not improving prompting evaluation per recommendation of her oncology service. Work-up in the ED noted T-max 99.6, heart rate initially 110 with most recent repeat 82, BP initially 135/89 with most recent repeat 111/52, respiratory rate 16, 93 to 97% on room air with most recent 93% on room air, CBC with WC 0.7, hemoglobin 9.4, MCV 89.7, platelet 59 with neutropenia and lymphopenia, CMP with sodium 132, glucose 158, lactic acid 1.4, hepatic profile not marked appearing, urinalysis with no obvious evidence of infection, chest x-ray with no acute cardiopulmonary findings, rapid COVID antigen negative, blood culture x2 pending per ED, EKG with sinus tachycardia with no acute evidence of ischemia. in the ED patient administered IV vancomycin and Zosyn. ED physician discussed case with her Oncology service who will be on consult and requested BSA initiation. Hospital Course: 1. Neutropenic fever with a history of triple negative breast cancer on chemotherapy/acute gastroenteritis?66-year-old female who now has recurrent breast cancer in her right breast presented to the hospital after chemotherapy with neutropenic fever. She has had significant improvement here and her fevers have resolved. Her white count is normal and so is her absolute neutrophil count. She did receive a dose of Granix during her stay. She was placed on broad-spectrum antibiotics however cultures have all been negative. She also states that her diarrhea has significantly improved and her enteric cultures are negative for C. difficile or enteric pathogens. We will continue with Levaquin for another 7 days and I do recommend that she follow-up with her PCP in 3 to 5 days for outpatient monitoring. I also asked her to notify her oncologist about her neutropenic fever as this may delay her next chemotherapy dose which was due this Monday. 2. Hypertension, hyperlipidemia, GERD, anxiety, depression all chronic medical conditions which complicate her care. Her home medications were continued where appropriate Physical Exam Narrative General: Alert, Oriented x3, Cooperative, No apparent distress HEENT: Atraumatic, PERRLA, EOMI, Normocephalic Oral: Moist Mucosa Neck: Supple, No JVD Lungs: Clear to auscultation, Normal air movement, No rhonchi, No wheeze, No rales Cardiovascular: Regular rate, Regular Rhythm, Normal S1, Normal S2, No murmurs Abdomen: Soft, Non Tender, Non-Distended, No Hepato-splenomegaly Extremities: No edema, Capillary Refill Less than 3 Seconds Skin: No rashes, No breakdown Musculoskeletal: No Tenderness to Palpation of Joints or Extremities Neurological: Cranial nerves II-XII grossly intact, Motor Exam 5/5 strength throughout, Sensory exam intact to light touch and pain Psych/Mental Status: Normal Affect, Appropriate Weight / BMI Weight Weight: 244 lb 14.937 oz Body Mass Index (BMI) 42.1 ABG / Lab / Microbiology Data Result Diagrams: 07/12/22 03:17 07/12/22 03:17 Laboratory: Laboratory Results - last 24 hr 07/09/22 23:50: Diff Path Review Reviewed 07/10/22 05:15: Diff Path Review Reviewed 07/11/22 05:35: Diff Path Review Reviewed 07/11/22 14:30: Vancomycin Trough 22.3 H 07/12/22 03:17: WBC 6.5, RBC 2.79 L, Hgb 8.0 L, Hct 25.0 L, MCV 89.6, MCH 28.7, MCHC 32.0, RDW Std Deviation 45.0 H, RDW Coeff of Tj 13.7, Plt Count 92 L, MPV 10.9, Neut % (Auto) Not Reportable, Absolute Neuts (auto) 5.2, Absolute Lymphs (auto) 0.32 L, Total Counted 100, Neutrophils % (Manual) 64, Band Neutrophils % 17 H, Lymphocytes % (Manual) 5 L, Monocytes % (Manual) 9, Metamyelocytes % 3 H, Myelocytes % 1 H, Promyelocytes % 1 H, Diff Path Review May foll, Platelet Estimate SLT DEC, RBC Morphology NORM C+C 07/12/22 03:17: Sodium 141, Potassium 3.8, Chloride 112 H, Carbon Dioxide 24.0, Anion Gap 5, BUN 14, Creatinine 0.81, Estim Creat Clear Calc 54.99, Est GFR (MDRD) Af Amer 90, Est GFR (MDRD) Non-Af 74, BUN/Creatinine Ratio 17.2, Glucose 108 H, Calcium 8.1 L 07/12/22 03:17: Random Vancomycin 13.6 Microbiology: Microbiology 07/10/22 02:20 Blood Culture (Wb) - Anticubital Right Blood Culture - Preliminary No growth in 48 hours. 07/09/22 23:50 Blood Culture (Wb) - Anticubital Right Blood Culture - Preliminary No growth in 48 hours. 07/10/22 00:06 Urine, Clean Catch Urine Culture - Final Mixed Gram Pos & Gram Neg Org 07/10/22 12:08 Stool C. difficile DNA Amplification - Final 07/10/22 04:35 Stool Enteric Bacteriology - Final 07/10/22 04:30 Mucosa - Nasopharyngeal Respiratory Panel (PCR) - Final 07/09/22 23:50 Nasal Secretion SARS-CoV-2 & FLU Antigen (Rapid) - Final D/C Instructions Discharge Diet: No restrictions Call your doctor if you observe: Fever of 101 or Higher, Shortness of breath, Dizziness, Fainting spells, Swelling in the ankles, Chest pain and Increased palpitations (irregular heartbeat) Meaningful Use Info Meaningful Use Diagnoses (Choose all that apply): None applicable Discharge Plan Admission Admit Date/Time: 07/10/22 14:35 Attending Provider: Ramon Houser Primary Care Provider: Beverly Colunga NP Consulting Providers: Marixa Knott ; Carlos Hernandez ; Yasmany Vyas Discharge Orders/Prescriptions Prescriptions: New levofloxacin 750 mg tablet 750 mg PO Q24H Qty: 7 0RF Continued clobetasol 0.05 % cream 1 applic TOPICAL BID PRN (Reason: Skin Cleansing) multivitamin Tablet 1 tab PO DAILY omeprazole 20 MG capsule,delayed release(DR/EC) 20 mg PO DAILY Label Comments: TK 1 C PO ONCE DAILY sennosides-docusate sodium [Stool Softener-Stimulant Laxat] 8.6-50 mg Tablet 2 tab PO BID Qty: 0 0RF Rx Instructions: Take until first bowel movement, then as needed sertraline 25 mg tablet 25 mg PO DAILY Label Comments: Take 1 tablet by mouth once daily. amlodipine 2.5 mg Tablet 2.5 mg PO QHS lisinopril 30 mg Tablet 30 mg PO QHS Referrals / Follow Up: aMck Jones DO [Med Staff - Active Staff] - Within 1 Week Beverly Colunga NP, [employer] [Primary Care Provider] - Within 1 Week Disposition Disposition (needs filled in before D/C Order can be placed): Home, Self Care Charges/Coding Visit Charges Inpatient E&M: 97792 Disch Hosp
[2022-07-12] MEDS: Pantoprazole Sodium 20 MG Tablet PO (09:26)
[2022-07-12] MEDS: Sertraline 50 MG Tablet 25 MG PO (09:26)
[2022-07-12] MEDS: TBO-FILGRASTIM 300 MCG/0.5 ML ML SC (09:35)
[2022-07-12] MEDS: 0.9% Saline Lock 10 ML Syringe IV (13:12)
[2022-07-12 13:19] VITALS: BP 155/87; PULSE 70; RESP 18; TEMP 37.2; O2SAT 98
[2022-07-12 13:27] LABS: Pathologist Review Reviewed
== END 2022-07-12 13:38 | disposition home or self-care (01) | DRG 809 ==
LOC: ED 07-10 01:53 → MS3 07-10 02:38
PROVIDERS: Internal Medicine; Admitting Provider Family Medicine; Emergency Provider Emergency Medicine; PCP Registered Nurse; Visit Provider Family Medicine
DX: D70.9 Neutropenia, unspecified (principal); Z68.41 Body mass index [BMI] 40.0-44.9, adult; E87.1 Hypo-osmolality and hyponatremia; K52.1 Toxic gastroenteritis and colitis; E83.39 Other disorders of phosphorus metabolism; C50.412 Malignant neoplasm of upper-outer quadrant of left female breast; D69.59 Other secondary thrombocytopenia; E66.01 Morbid (severe) obesity due to excess calories; D61.810 Antineoplastic chemotherapy induced pancytopenia; I10 Essential (primary) hypertension; K21.9 Gastro-esophageal reflux disease without esophagitis; M48.00 Spinal stenosis, site unspecified; M19.90 Unspecified osteoarthritis, unspecified site; E78.5 Hyperlipidemia, unspecified; G43.909 Migraine, unspecified, not intractable, without status migrainosus; Z79.899 Other long term (current) drug therapy; R73.9 Hyperglycemia, unspecified; T45.1X5A Adverse effect of antineoplastic and immunosuppressive drugs, initial encounter; R50.81 Fever presenting with conditions classified elsewhere
CPT/HCPCS: 36415; 71045; 80048; 80053; 80202; 81001; 83036; 83605; 83735; 84100; 84145; 85025; 87040; 87086; 87088; 87428; 87493; 87506; 87633; 87635; 93005; 99251; 99284; J7030; J7040; J7050; A4216; G0463; J1447; U0003; U0005

== ENCOUNTER 2022-07-23 14:48 | Inpatient (IN) | payer MEDICARE, OTHER, SELFPAY ==
[2022-07-23] VITALS (7 sets, daily range): BP systolic 130–151; BP diastolic 68–88; PULSE 94–111; RESP 16–20; TEMP 37–37.1; O2SAT 94–97; BMI 42.7; BMI 43.3
--- NOTE | 2022-07-23 15:20 | EKG12_ITS ---
Test Reason : FEVER Blood Pressure : / mmHG Vent. Rate : 102 BPM Atrial Rate : 102 BPM P-R Int : 128 ms QRS Dur : 084 ms QT Int : 368 ms P-R-T Axes : 065 -12 028 degrees QTc Int : 479 ms Sinus tachycardia with Premature atrial complexes Otherwise normal ECG Confirmed by JUDY HODGE, DOMO ([id number]), staff editor DAGOBERTO WISDOM ([id number]) on 07/25/2022 11:28:47 AM Referred By: LOURDES Confirmed By:DOMO KIM MD
--- NOTE | 2022-07-23 15:39 | EDS_ITS ---
HPI History of Present Illness Chief Complaint: Fever Informant: patient Narrative Narrative: History of breast cancer diagnosis past April. Second round of chemo last time 8 days ago. Noted fever today T-max 100.8. Denies cough nausea vomiting diarrhea or any urinary symptoms. She states similar symptoms on her last treatment was admitted for 3 days. She states her lab work was abnormal. She had mild sore since her chemo started on liquid medicines of an acid with lidocaine for swish and spit. This was started yesterday. No medications taken at home prior to arrival. She received the same chemo treatment as her first time. Patient did receive the Neulasta injection the day after chemo a week ago. Prior similar symptoms: Yes PFSH [facility] Medical History Ambulates with cane Anemia Back pain Back pain Breast CA Breast cancer of upper-outer quadrant of left female breast Cardiology follow-up encounter Essential hypertension Gastric reflux GERD (gastroesophageal reflux disease) History of echocardiogram History of edema History of irregular heartbeat History of pain when walking History of stress test Hypertension Migraine headache Neutropenic fever Non-smoker Osteoarthritis Premature ventricular contraction Preoperative cardiovascular examination Shortness of breath on exertion Spinal stenosis Walker as ambulation aid Wears dentures Wears glasses Home Medications omeprazole 20 mg capsule,delayed release 20 mg PO DAILY 05/01/18 [History Last Taken 05/04/22 04:00] clobetasol 0.05 % topical cream 1 applic topical BID PRN Skin Cleansing 03/04/21 [History Last Taken Unknown] multivitamin 1 tab PO DAILY 03/03/22 [History Last Taken Unknown] amlodipine 2.5 mg tablet 2.5 mg PO QHS bp 07/10/22 [History Last Taken Unknown] lisinopril 30 mg tablet 30 mg PO QHS bp 07/10/22 [History Last Taken Unknown] sertraline 25 mg tablet 25 mg PO DAILY 07/10/22 [History Last Taken Unknown] Allergy/AdvReac Type Severity Reaction Status Date / Time codeine Allergy Mild N/V AND Verified 07/23/22 14:49 MAKES HER FEEL REALLY SICK hydrocodone [From Vicodin] Allergy Mild N/V AND Verified 07/23/22 14:49 MAKES HER FEEL REALLY SICK Family History Mother Diabetes Kidney disease Father CVA (cerebral vascular accident) Hypertension Sister Thyroid disorder Surgical History History of breast lump/mass excision History of carpal tunnel surgery History of hip replacement Hx of colonoscopy Hx of esophagogastroduodenoscopy Hx of hysterectomy Hx of surgical amputation of finger Hx of tonsillectomy Hx of tubal ligation Previous back surgery S/P lumpectomy, left breast Status post reverse total arthroplasty of right shoulder Social History household members: none Smoking Status: Never smoker second hand exposure: No alcohol intake: never substance use type: does not use caffeine: Yes ROS ROS ED Constitutional Constitutional ED: Reports fever(s); Denies chills or sweats Eyes Eyes: Denies change in vision ENT ENT ED: Reports other Details: Mouth sores ; Denies dysphagia or sore throat Cardiovascular Cardiovascular: Denies chest pain, leg edema, palpitations or racing heartbeat Respiratory/Chest Respiratory/Chest: Denies cough, dyspnea or dyspnea on exertion Gastrointestinal Gastrointestinal: Denies abdominal pain, diarrhea, nausea or vomiting Genitourinary Genitourinary ED: Denies dysuria, hematuria or urinary frequency Musculoskeletal Musculoskeletal: Denies back pain, extremity pain or neck pain Integumentary Denies rash or wounds Neurologic Neurologic: Denies headache(s), paresthesias or weakness EXAM Physical Exam Const Vital Signs: 07/23/22 14:50 07/23/22 16:19 07/23/22 16:20 Temperature 98.7 F 98.6 F Temperature Source Oral Oral Pulse Rate 111 H Respiratory Rate 20 H Respiratory Effort Normal Non-Labored Respiratory Pattern Normal Blood Pressure 151/69 H Blood Pressure Mean 96 Pulse Ox 97 Oxygen Delivery Method Room Air 07/23/22 16:51 07/23/22 18:19 07/23/22 18:27 Temperature 98.6 F 98.6 F Temperature Source Oral Oral Pulse Rate 98 95 95 Respiratory Rate 20 H 20 H 20 H Respiratory Effort Respiratory Pattern Blood Pressure 130/73 H 145/68 H 145/68 H Blood Pressure Mean 92 93 93 Pulse Ox 97 95 95 Oxygen Delivery Method Room Air Room Air Room Air Positive well nourished and well developed General Appearance ED: well developed and NAD HEENT Reports moist mucous membranes HEENT Narrative: This lower lip inner ulcerations, no bleeding. normocephalic and atraumatic Eyes PERRL, EOMs intact bilaterally and conjunctivae normal General Eye ED: Yes normal appearance of both eyes Neck no lymphadenopathy and supple General: Negative for tenderness Chest Wall Chest: Negative for tenderness Resp normal respiratory effort and normal air movement Effort and Inspection: symmetric chest movement; Negative for respiratory distress Cardio regular rhythm and no murmurs Rate: tachycardic Peripheral Pulses: pulses 2+ throughout GI normal to inspection, nondistended, normoactive bowel sounds and non-tender Palpation: Negative for guarding or rebound tenderness present Back/Spine no CVA tenderness and no thoracic nor lumbar tenderness Extremity normal to inspection General Extremety ED: Negative for edema or tenderness General Extremity: Negative for edema Neuro oriented x3 and no sensory deficits noted Sensorium / Orientation: awake and alert Skin no rashes or lesions noted and no wounds MDM MDM MDM Narrative Medical decision making narrative: Patient reported fever at home none in the ED. Neutropenic labs are ordered. Results White count 8.4. Hemoglobin 8.1 stable from previous. Platelets 119. Urine negative for infection chest x-ray 1 view reviewed myself read by radiology shows no infiltrates. Lactic acid 1.6. I discussed with covering oncologist Dr. Somers, recommended admission with broad antibiotics at this time. Cefepime and vancomycin ordered. I spoke with hospitalist Dr. Knott for admission. Lab Data Attestation: I reviewed the patient's lab results. Labs: Laboratory Results - last 24 hr 07/23/22 07/23/22 07/23/22 15:20 15:40 15:40 WBC 0.4 L* RBC 2.89 L Hgb 8.1 L Hct 25.9 L MCV 89.6 MCH 28.0 MCHC 31.3 L RDW Std Deviation 46.5 H RDW Coeff of Tj 14.6 Plt Count 119 L MPV 9.5 Immature Gran % (Auto) 0.000 Neut % (Auto) 15.0 L Lymph % (Auto) 42.5 H Esmeralda % (Auto) 37.5 H Eos % (Auto) 0.0 Baso % (Auto) 5.0 H Absolute Neuts (auto) 0.1 L Absolute Lymphs (auto) 0.17 L Nucleated RBC % 0 Differential Comment SEE COMMENTS Diff Path Review May foll Platelet Estimate SLT DEC RBC Morphology N CHROM Anisocytosis RARE Macrocytosis RARE PT 13.9 INR 1.1 APTT 27.0 Sodium Potassium Chloride Carbon Dioxide Anion Gap BUN Creatinine Estim Creat Clear Calc Est GFR (MDRD) Af Amer Est GFR (MDRD) Non-Af BUN/Creatinine Ratio Glucose Lactic Acid 1.6 Calcium Phosphorus Magnesium Total Bilirubin AST ALT Alkaline Phosphatase Total Protein Albumin Globulin Albumin/Globulin Ratio Procalcitonin Urine Color Urine Clarity Urine pH Ur Specific Mohler Urine Protein Urine Glucose (UA) Urine Ketones Urine Occult Blood Urine Nitrite Urine Bilirubin Urine Urobilinogen Ur Leukocyte Esterase Urine RBC Urine WBC Ur Squamous Epith Cells Urine Bacteria Urine Mucus 07/23/22 07/23/22 07/23/22 15:40 15:40 15:40 WBC RBC Hgb Hct MCV MCH MCHC RDW Std Deviation RDW Coeff of Tj Plt Count MPV Immature Gran % (Auto) Neut % (Auto) Lymph % (Auto) Esmeralda % (Auto) Eos % (Auto) Baso % (Auto) Absolute Neuts (auto) Absolute Lymphs (auto) Nucleated RBC % Differential Comment Diff Path Review Platelet Estimate RBC Morphology Anisocytosis Macrocytosis PT INR APTT Sodium 137 Potassium 3.8 Chloride 102 Carbon Dioxide 30.0 Anion Gap 5 BUN 14 Creatinine 0.90 Estim Creat Clear Calc 49.49 Est GFR (MDRD) Af Amer 80 Est GFR (MDRD) Non-Af 66 BUN/Creatinine Ratio 15.6 Glucose 131 H Lactic Acid Calcium 8.4 L Phosphorus 2.3 L Magnesium 1.9 Total Bilirubin 0.40 AST 12 L ALT 19 Alkaline Phosphatase 78 Total Protein 6.4 Albumin 2.9 L Globulin 3.5 Albumin/Globulin Ratio 0.8 L Procalcitonin 0.13 H Urine Color Urine Clarity Urine pH Ur Specific Mohler Urine Protein Urine Glucose (UA) Urine Ketones Urine Occult Blood Urine Nitrite Urine Bilirubin Urine Urobilinogen Ur Leukocyte Esterase Urine RBC Urine WBC Ur Squamous Epith Cells Urine Bacteria Urine Mucus 07/23/22 16:30 WBC RBC Hgb Hct MCV MCH MCHC RDW Std Deviation RDW Coeff of Tj Plt Count MPV Immature Gran % (Auto) Neut % (Auto) Lymph % (Auto) Esmeralda % (Auto) Eos % (Auto) Baso % (Auto) Absolute Neuts (auto) Absolute Lymphs (auto) Nucleated RBC % Differential Comment Diff Path Review Platelet Estimate RBC Morphology Anisocytosis Macrocytosis PT INR APTT Sodium Potassium Chloride Carbon Dioxide Anion Gap BUN Creatinine Estim Creat Clear Calc Est GFR (MDRD) Af Amer Est GFR (MDRD) Non-Af BUN/Creatinine Ratio Glucose Lactic Acid Calcium Phosphorus Magnesium Total Bilirubin AST ALT Alkaline Phosphatase Total Protein Albumin Globulin Albumin/Globulin Ratio Procalcitonin Urine Color Yellow Urine Clarity Clear Urine pH 7.0 Ur Specific Mohler 1.010 Urine Protein Negative Urine Glucose (UA) Normal Urine Ketones Negative Urine Occult Blood Negative Urine Nitrite Negative Urine Bilirubin Negative Urine Urobilinogen Normal Ur Leukocyte Esterase Negative Urine RBC 0 SEEN Urine WBC 0-5 SEEN Ur Squamous Epith Cells 0 SEEN Urine Bacteria 0 SEEN Urine Mucus 0 SEEN Radiography Diagnostic Testing: Clinical Impression(s) from Imaging Studies Chest X-Ray 07/23/22 16:23 IMPRESSION: Poor inspiration with some bibasilar atelectasis. Electronically Signed: Jeremy Ayala MD at 17:43 EDT , EKG Initial EKG: Attestation: I personally reviewed and interpreted this EKG as follows: Comments: Sinus rate of 102, no ST or T wave changes. Discharge Plan Dx/Rx/DC Orders Clinical Impression: Neutropenic fever, Breast cancer, Anemia, Mouth sores, Chemotherapy adverse reaction, Thrombocytopenia Disposition Disposition: Acute Care [facility] Discharge Date/Time: 07/23/22 18:52
[2022-07-23 15:53] LABS: Absolute Lymphocyte Count 0.17 X10^3/uL (0.83-4.51); Absolute Neutrophil Count 0.1 X10^3/uL (2.0-7.7); Basophil# 0.02 X10^3/uL; Hematocrit 25.9 % (37-47); Hemoglobin 8.1 g/dL (12.0-15.0); Lymphocyte # 0.17 X10^3/ul (0.83-4.51); Lymphocyte % 42.5 % (19-41); Mean Corp Hgb Conc 31.3 g/dL (32-36); Mean Corpuscular Volume 89.6 fL (81-99); Mean Platelet Vol. 9.5 fl (6.2-12.0); Monocyte# 0.15 X10^3/uL; Monocyte% 37.5 % (0-10); NRBC Flagged by Analyzer 0 % (0-5); Neutrophil # 0.06 X10^3/uL (2.7-7.7); POSITIVE COUNT YES; POSITIVE DIFFERENTIAL YES; POSITIVE MORPHOLOGY YES; Platelet Count 119 K/mm3 (150-450); RBC Distribution Width CV 14.6 % (11.6-14.6); RBC Distribution Width SD 46.5 fl (35.1-43.9); Red Blood Count 2.89 M/mm3 (4.2-5.4)
[2022-07-23 16:13] LABS: ALB/GLOB Ratio 0.8 RATIO (0.9-2.4); AST(SGOT) 12 U/L (15-37); Alanine Aminotransfer ALT/SGPT 19 U/L (13-56); Albumin, Serum 2.9 g/dL (3.2-5.0); Alkaline Phosphatase 78 U/L (45-117); Anion Gap 5 (5-15); BUN 14 mg/dL (7-18); BUN/Creat Ratio 15.6 RATIO (10-20); Calcium,Total 8.4 mg/dL (8.5-10.1); Chloride 102 mmol/L (98-107); EST Glomerular Filtration Rate 66 mL/min (>60); Est Glom Filt Rate - Afr Amer 80 mL/min (>60); Estimated Creatinine Clearance 49.49 ml/min; Globulin 3.5 g/dL (2.2-4.2); Glucose 131 mg/dL (74-106); International Normalized Ratio 1.1; Potassium 3.8 mmol/L (3.5-5.1); Protein, Total 6.4 g/dL (6.4-8.2); Prothrombin Time (Protime)PT. 13.9 SECONDS (11.7-14.9); Sodium Level 137 mmol/L (136-145)
[2022-07-23 16:18] LABS: Differential Indicated SCAN CRITERIA MET; White Blood Count 0.4 K/mm3 (4.4-11.0)
[2022-07-23 16:20] LABS: Differential Comment SEE COMMENTS
[2022-07-23 16:21] LABS: Anisocytosis RARE; Macrocytosis RARE; Platelet Estimate SLT DEC (ADEQ); Red Cell Morphology N CHROM NORMAL (NORM C&C)
--- NOTE | 2022-07-23 16:23 | RAD_ITS ---
STUDY: X-RAY CHEST REASON FOR EXAM: Female, 66 years old. fever TECHNIQUE: Single AP portable view of the chest. COMPARISON: 07/10/2022 FINDINGS: Left internal jugular chest port which is unchanged. Status post left axillary lymph node dissection. Poor inspiration with some bibasilar atelectasis. There is no demonstrated pleural abnormality. Normal size heart. Normal mediastinum and sona. Normal visualized pulmonary arteries. Normal visualized aortic arch and descending thoracic aorta. Spinal rods in the lower thoracic spine. Status post right shoulder reverse arthroplasty. There is no demonstrated abnormality of the visualized soft tissue structures of the upper abdomen. RAD/Chest 1 View (Portable) IMPRESSION: Poor inspiration with some bibasilar atelectasis. Electronically Signed: Jeremy Ayala MD at 17:43 EDT ,
[2022-07-23] MEDS: 0.9% Normal Saline 1,000 ML 150 ML IV (16:29)
[2022-07-23 16:39] LABS: Bacteria 0 SEEN /hpf (None Seen); Mucous, Urine 0 SEEN /hpf (<or=2+); Red Blood Cells-Urine 0 SEEN /hpf (0-5); Squamous Epithelial Cells - UA 0 SEEN /hpf (5-10)
[2022-07-23 16:49] LABS: Color, Urine Yellow (Yellow); Glucose, Dipstick Normal (Normal); Ketone-Dipstick Negative (Negative); Leukocyte Esterase-Dipstick Negative /ul (Negative); Nitrite-Dipstick Negative (Negative); Occult Blood-Urine Negative /ul (Negative); Protein-Dipstick Negative (Negative); Urine Bilirubin Dipstick Negative (Negative); Urine Clarity Clear (Clear); Urine Urobilinogen Normal (Normal)
[2022-07-23 16:50] LABS: White Blood Cells 0-5 SEEN /hpf (0-5)
[2022-07-23 17:18] LABS: Lactic Acid 1.6 mmol/L (0.4-1.9)
--- NOTE | 2022-07-23 17:48 | PCM.HP.STD ---
HPI - General General Date of Admission: 07/23/22 Date of Service: 07/23/22 Chief Complaint: Fever, chills, last chemotherapy Monday prior. HPI Narrative The patient is a 66 y/o F w/ PMHx: Morbid Obesity, GERD, Chronic normocytic anemia, Anxiety and Depression, HTN, HLD, Migraine headaches, Prior L Breast CA s/p lumpectomy and radiation 2015 with recent 05/04/22 diagnosis of recurrent Breast CA, R sided, noted to be triple negative with recent admission 07/10/22 with similar presentation following chemotherapy initiation with neutropenic fevers felt secondary to possible gastroenteritis with negative cultures including stool cultures with improvement of ANC w/ G-CSF discharged on levaquin oral regimen x 7 additional tabs (07/12/22 d/c) who now re-presents to the [facility] ED on 07/23/22 with history of onset fevers with T max 100.8 with no fever, chills, abdominal pain, diarrhea, dyspnea, cough related but does report recently onset oral sores and was recently started by Dr. Jones on magic mouthwash but given fever onset was referred to the ED for evaluation. She notes she received recent granix administration on Monday with her chemotherapy. Work-up in the ED included T98.7, heart rate initially 111 with most recent repeat 98, BP initially 151/69 with most recent repeat 130/73, respiratory rate 20, 97% on room air, CBC with WC 0.4, hemoglobin 8.1, platelet 119 with neutropenia and lymphopenia, unremarkable coags, CMP with glucose 131, lactic acid 1.6 otherwise hepatic profile not marked appearing, urinalysis unremarkable, CXR with bibasilar atelectasis, COVID antigen negative, Bld Cx x 2 pending per ED, UCx pending per ED. in the ED patient ministered vancomycin and Zosyn. Oncology [facility] Dr. Somers (corrections counselor for Dr. Jones/Dr. Nunes) contacted about patient and recommended admission with continued broad-spectrum antibiotic therapy pending culture results. [facility] Medical History Ambulates with cane Anemia Back pain Back pain Breast CA Breast cancer of upper-outer quadrant of left female breast Cardiology follow-up encounter Essential hypertension Gastric reflux GERD (gastroesophageal reflux disease) History of echocardiogram History of edema History of irregular heartbeat History of pain when walking History of stress test Hypertension Migraine headache Neutropenic fever Non-smoker Osteoarthritis Premature ventricular contraction Preoperative cardiovascular examination Shortness of breath on exertion Spinal stenosis Walker as ambulation aid Wears dentures Wears glasses Home Medications omeprazole 20 mg capsule,delayed release 20 mg PO DAILY 05/01/18 [History Last Taken 05/04/22 04:00] clobetasol 0.05 % topical cream 1 applic topical BID PRN Skin Cleansing 03/04/21 [History Last Taken Unknown] multivitamin 1 tab PO DAILY 03/03/22 [History Last Taken Unknown] amlodipine 2.5 mg tablet 2.5 mg PO QHS bp 07/10/22 [History Last Taken Unknown] lisinopril 30 mg tablet 30 mg PO QHS bp 07/10/22 [History Last Taken Unknown] sertraline 25 mg tablet 25 mg PO DAILY 07/10/22 [History Last Taken Unknown] Allergy/AdvReac Type Severity Reaction Status Date / Time codeine Allergy Mild N/V AND Verified 07/23/22 14:49 MAKES HER FEEL REALLY SICK hydrocodone [From Vicodin] Allergy Mild N/V AND Verified 07/23/22 14:49 MAKES HER FEEL REALLY SICK Family History Mother Diabetes Kidney disease Father CVA (cerebral vascular accident) Hypertension Sister Thyroid disorder Surgical History History of breast lump/mass excision History of carpal tunnel surgery History of hip replacement Hx of colonoscopy Hx of esophagogastroduodenoscopy Hx of hysterectomy Hx of surgical amputation of finger Hx of tonsillectomy Hx of tubal ligation Previous back surgery S/P lumpectomy, left breast Status post reverse total arthroplasty of right shoulder Social History household members: none Smoking Status: Never smoker second hand exposure: No alcohol intake: never substance use type: does not use caffeine: Yes ROS ROS Narrative Admission Review of Systems: CONSTITUTIONAL: No weight loss, + fever, chills, weakness or fatigue. HEENT: + Oral sores. Eyes: No visual loss, blurred vision, double vision or yellow sclerae. Ears, Nose, Throat: No hearing loss, sneezing, congestion, runny nose or sore throat. SKIN: + Mouth visible lip sores/oral sores. CARDIOVASCULAR: No chest pain, chest pressure or chest discomfort, palpitations, edema, orthopnea, syncopal events. RESPIRATORY: No shortness of breath, cough or sputum, wheezing, hemoptysis. GASTROINTESTINAL: + anorexia, No nausea, vomiting or diarrhea, abdominal pain, melena, BRBPR. GENITOURINARY: No dysuria, frequency, urgency or retention. NEUROLOGICAL: No headache, dizziness, syncope, paralysis, ataxia, numbness or tingling in the extremities, focal weakness, change in bowel or bladder control, seizure. MUSCULOSKELETAL: + muscle, back pain, joint pain or stiffness. HEMATOLOGIC: + anemia, bleeding or bruising. LYMPHATICS: No enlarged nodes. No history of splenectomy. PSYCHIATRIC: + history of depression or anxiety. ENDOCRINOLOGIC: No reports of sweating, cold or heat intolerance. No polyuria or polydipsia. ALLERGIES: No history of asthma, hives, eczema or rhinitis. Vital Signs Vital Signs Vital Signs: 07/23/22 14:50 07/23/22 16:19 07/23/22 16:20 Temperature 98.7 F 98.6 F Temperature Source Oral Oral Pulse Rate 111 H Respiratory Rate 20 H Respiratory Effort Normal Non-Labored Respiratory Pattern Normal Blood Pressure 151/69 H Blood Pressure Mean 96 Pulse Ox 97 Oxygen Delivery Method Room Air 07/23/22 16:51 Temperature 98.6 F Temperature Source Oral Pulse Rate 98 Respiratory Rate 20 H Respiratory Effort Respiratory Pattern Blood Pressure 130/73 H Blood Pressure Mean 92 Pulse Ox 97 Oxygen Delivery Method Room Air Weight Weight: 241 lb 6.499 oz Body Mass Index (BMI) 42.7 Physical Exam Narrative Physical Examination: General: Awake, alert, oriented x 3 and cooperative, seated upright in the ED bed, fatigued appearing Skin: Normal color, normal turgor, no icterus, no cyanosis except notable bin-oral lip lesions. HEENT: AT/NC, EOMI, PERRLA, dry MM, significant peeling denuding skin secondary to lip sores, oropharynx with similar lesions, no carotid bruits or JVD noted. Lungs: Diminished, greater bases, appropriate effort, no rales, ronchi or wheezing. Heart: Regular rate and rhythm; no gallop, rub audible. Abdomen: Soft, morbidly obese, NTTP, ND, distant mildly hyperactive BS, no HSM. Extremities: No cyanosis, no clubbing, mild pedal to distal jason not markedly pitting edema. Neurological: Patient awake, alert, oriented as noted cognitive function appears baseline intact; pupils equally reactive to light and accommodation, cranial nerves grossly normal, moving all 4 extremities, no focal deficits, strength mildly globally decreased Psychiatric: Affect appears fatigued otherwise normal, no acute evidence of depressive or anxiety feelings. Results Lab / Micro Data Result Diagrams: 07/23/22 15:40 07/23/22 15:40 Labs: Laboratory Results - last 24 hr 07/23/22 15:20: Lactic Acid 1.6 07/23/22 15:40: WBC 0.4 L*, RBC 2.89 L, Hgb 8.1 L, Hct 25.9 L, MCV 89.6, MCH 28.0, MCHC 31.3 L, RDW Std Deviation 46.5 H, RDW Coeff of Tj 14.6, Plt Count 119 L, MPV 9.5, Immature Gran % (Auto) 0.000, Neut % (Auto) 15.0 L, Lymph % (Auto) 42.5 H, [place] % (Auto) 37.5 H, Eos % (Auto) 0.0, Baso % (Auto) 5.0 H, Absolute Neuts (auto) 0.1 L, Absolute Lymphs (auto) 0.17 L, Nucleated RBC % 0, Differential Comment SEE COMMENTS, Diff Path Review May foll, Platelet Estimate SLT DEC, RBC Morphology N CHROM, Anisocytosis RARE, Macrocytosis RARE 07/23/22 15:40: PT 13.9, INR 1.1, APTT 27.0 07/23/22 15:40: Sodium 137, Potassium 3.8, Chloride 102, Carbon Dioxide 30.0, Anion Gap 5, BUN 14, Creatinine 0.90, Estim Creat Clear Calc 49.49, Est GFR (MDRD) Af Amer 80, Est GFR (MDRD) Non-Af 66, BUN/Creatinine Ratio 15.6, Glucose 131 H, Calcium 8.4 L, Total Bilirubin 0.40, AST 12 L, ALT 19, Alkaline Phosphatase 78, Total Protein 6.4, Albumin 2.9 L, Globulin 3.5, Albumin/Globulin Ratio 0.8 L 07/23/22 16:30: Urine Color Yellow, Urine Clarity Clear, Urine pH 7.0, Ur Specific [place] 1.010, Urine Protein Negative, Urine Glucose (UA) Normal, Urine Ketones Negative, Urine Occult Blood Negative, Urine Nitrite Negative, Urine Bilirubin Negative, Urine Urobilinogen Normal, Ur Leukocyte Esterase Negative, Urine RBC 0 SEEN, Urine WBC 0-5 SEEN, Ur Squamous Epith Cells 0 SEEN, Urine Bacteria 0 SEEN, Urine Mucus 0 SEEN Micro: Microbiology 07/23/22 15:15 Nasal Secretion SARS-CoV-2 Antigen (Rapid) - Final Radiology Impression Chest X-Ray 07/23/22 16:23 IMPRESSION: Poor inspiration with some bibasilar atelectasis. Electronically Signed: Jeremy Ayala MD at 17:43 EDT , Assessment & Plan Assessment/Plan (1) Neutropenic fever: PLAN: Plan The patient is a 66 y/o F w/ PMHx: Morbid Obesity, GERD, Chronic normocytic anemia, Anxiety and Depression, HTN, HLD, Migraine headaches, Prior L Breast CA s/p lumpectomy and radiation 2016 with recent 05/04/22 diagnosis of recurrent Breast CA, R sided, noted to be triple negative with recent admission 07/10/22 with similar presentation following chemotherapy initiation with neutropenic fevers felt secondary to possible gastroenteritis with negative cultures including stool cultures with improvement of ANC w/ G-CSF discharged on levaquin oral regimen x 7 additional tabs (07/12/22 d/c) who now re-presents to the [facility] ED on 07/23/22 with history of onset fevers with T max 100.8 with no fever, chills, abdominal pain, diarrhea, dyspnea, cough related but does report recently onset oral sores. #1.? Neutropenic fever with Recent R Triple Negative Breast CA diagnosis, recent chemotherapy (2nd round, recent admission following 1st with similar febrile presentation), unclear source with concurrent pancytopenia, suspect likely chemotherapy adverse reaction: Admission CBC with WBC 0.4, hemoglobin 8.1, platelet 119 with neutropenia and lymphopenia, CXR w/ no acute cardiopulmonary findings, UA w/ no obvious evidence of any infection. Bld cx and UCx pending per ED. Will admit to medical surgical floor, maintain on neutropenic precautions, obtain mag and phos level given recent chemotherapy treatments, maintain I&Os, treat with IV vancomycin and zosyn pending cultures. PRN tylenol, anti-emetics, pain regimen. Procalcitonin pending. #2. Anxiety and depression: We will continue patient home sertraline regimen, increase and titrate upward as needed given significantly low dose. #3.? Hypertension: Continue home regimen including lisinopril, amlodipine with hold parameters, PRN hydralazine. #4.? Hyperlipidemia: Not on any regimen, defer to outpatient. #5.? GERD: We will continue patient home PPI. #6.? Morbid Obesity: Weight loss and lifestyle changes encouraged. #7.? DVT prophylaxis: SCDs, defer chemoprophylaxis given acute presentation with pancytopenia. #8.? CODE status: Full Code status. Charges/Coding Visit Charges OBSV E&M: 61096 Initial observation care L3
--- NOTE | 2022-07-23 17:55 | NURSING ---
DR CARLOS RAPP
--- NOTE | 2022-07-23 18:04 | NURSING ---
MED SURG OBS WHITE NEUTROPENIC FEVER, HX RECURRENT BREAST CANCER
[2022-07-23] MEDS: 0.9% Normal Saline 1,000 ML 125 ML IV (19:00)
[2022-07-23 19:21] LABS: Magnesium 1.9 mg/dL (1.6-2.6); Phosphorus 2.3 mg/dL (2.5-4.9)
[2022-07-23 19:39] LABS: Procalcitonin 0.13 ng/mL (0.00-0.09)
[2022-07-23] MEDS: amLODIPine 2.5 MG Tablet PO (22:36)
[2022-07-23] MEDS: Lisinopril 10 MG Tablet 30 MG PO (22:36)
[2022-07-23] MEDS: Sertraline 50 MG Tablet 25 MG PO (22:36)
--- NOTE | 2022-07-23 22:36 | PCM.RX.CS ---
Consult Pharmacy has been consulted to manage selected antiobiotic: Vancomycin Type of Consult: New start Labs: Sodium 137 mmol/L (136-145) 07/23/22 15:40 Potassium 3.8 mmol/L (3.5-5.1) 07/23/22 15:40 Chloride 102 mmol/L (98-107) 07/23/22 15:40 Carbon Dioxide 30.0 mmol/L (21.0-32.0) 07/23/22 15:40 Anion Gap 5 (5-15) 07/23/22 15:40 BUN 14 mg/dL (7-18) 07/23/22 15:40 Creatinine 0.90 mg/dL (0.55-1.02) 07/23/22 15:40 Est GFR (MDRD) Af Amer 80 mL/min (>60) 07/23/22 15:40 Est GFR (MDRD) Non-Af 66 mL/min (>60) 07/23/22 15:40 BUN/Creatinine Ratio 15.6 RATIO (10-20) 07/23/22 15:40 Glucose 131 mg/dL (74-106) H 07/23/22 15:40 Microbiology: Microbiology 07/23/22 15:15 Nasal Secretion SARS-CoV-2 Antigen (Rapid) - Final Weight used for dosin.5 kg Estimated Creatinine Clearance: 71 Goal Trough: 15-20 mcg/mL Pharmacy Plan for Drug Dosing: Pharmacy Service will continue to monitor and adjust dosing as required. Medications Vancomycin HCl 1,500 mg/ (Sodium Chloride) 530 mls @ 250 mls/hr IV Q12H STAN Discontinued Medications Vancomycin HCl 2,000 mg/ (Sodium Chloride) 540 mls @ 250 mls/hr IV X1 ONE Stop: 07/23/22 19:57 Last Admin: 07/23/22 20:27 Dose: 250 mls/hr Follow-Up Labs: Trough Vancomycin Labs to be done on [date and time ordered]: 07/25 @ 0800
[2022-07-24] VITALS (7 sets, daily range): BP systolic 117–147; BP diastolic 59–93; PULSE 80–92; RESP 16–18; TEMP 36.2–36.9; O2SAT 90–98
[2022-07-24] MEDS: 0.9% Normal Saline 1,000 ML 125 ML IV (03:00)
--- NOTE | 2022-07-24 07:16 | PN.HOSP_ITS ---
Subjective Subjective Follow-up for neutropenic fever and mucositis. Afebrile since admission. Had fever at home. Mucosal erosion of lips. Soreness in mouth Objective Data Objective Data Vital Signs: Vital Signs Temp Pulse Resp BP Pulse Ox O2 Del Method 98.5 F 90 16 147/93 H 92 Room Air 07/24/22 04:26 07/24/22 04:07/24/22 04:26 07/24/22 04:26 07/24/22 04:07/24/22 04:26 Oxygen Delivery Method Room Air Weight: 241 lb 6.499 oz Body Mass Index (BMI) 42.7 Intake & Output: Intake and Output for Last 24 Hours 07/22/22 07/23/22 07/24/22 23:59 23:59 23:59 Intake Total 1640 / 1640 1550 / 1550 Balance 1640 / 1640 1550 / 1550 Lab / Micro Data Result Diagrams: 07/24/22 07:40 07/24/22 07:40 Labs: Laboratory Results - last 24 hr 07/23/22 15:20: Lactic Acid 1.6 07/23/22 15:40: WBC 0.4 L*, RBC 2.89 L, Hgb 8.1 L, Hct 25.9 L, MCV 89.6, MCH 28.0, MCHC 31.3 L, RDW Std Deviation 46.5 H, RDW Coeff of Tj 14.6, Plt Count 119 L, MPV 9.5, Immature Gran % (Auto) 0.000, Neut % (Auto) 15.0 L, Lymph % (Auto) 42.5 H, [place] % (Auto) 37.5 H, Eos % (Auto) 0.0, Baso % (Auto) 5.0 H, Absolute Neuts (auto) 0.1 L, Absolute Lymphs (auto) 0.17 L, Nucleated RBC % 0, Differential Comment SEE COMMENTS, Diff Path Review May ling, Platelet Estimate SLT DEC, RBC Morphology N CHROM, Anisocytosis RARE, Macrocytosis RARE 07/23/22 15:40: PT 13.9, INR 1.1, APTT 27.0 07/23/22 15:40: Sodium 137, Potassium 3.8, Chloride 102, Carbon Dioxide 30.0, Anion Gap 5, BUN 14, Creatinine 0.90, Estim Creat Clear Calc 49.49, Est GFR (MDRD) Af Amer 80, Est GFR (MDRD) Non-Af 66, BUN/Creatinine Ratio 15.6, Glucose 131 H, Calcium 8.4 L, Total Bilirubin 0.40, AST 12 L, ALT 19, Alkaline Phosphatase 78, Total Protein 6.4, Albumin 2.9 L, Globulin 3.5, Albumin/Globulin Ratio 0.8 L 07/23/22 15:40: Phosphorus 2.3 L, Magnesium 1.9 07/23/22 15:40: Procalcitonin 0.13 H 07/23/22 16:30: Urine Color Yellow, Urine Clarity Clear, Urine pH 7.0, Ur Specific [place] 1.010, Urine Protein Negative, Urine Glucose (UA) Normal, Urine Ketones Negative, Urine Occult Blood Negative, Urine Nitrite Negative, Urine Bilirubin Negative, Urine Urobilinogen Normal, Ur Leukocyte Esterase Negative, Urine RBC 0 SEEN, Urine WBC 0-5 SEEN, Ur Squamous Epith Cells 0 SEEN, Urine Bacteria 0 SEEN, Urine Mucus 0 SEEN Micro: Microbiology 07/23/22 15:15 Nasal Secretion SARS-CoV-2 Antigen (Rapid) - Final Radiography Diagnostic Testing: Radiology Impression Chest X-Ray 07/23/22 16:23 IMPRESSION: Poor inspiration with some bibasilar atelectasis. Electronically Signed: Jeremy Ayala MD at 17:43 EDT , Physical Exam Narrative Physical exam General: Alert, Oriented x3, Cooperative HEENT: Atraumatic, PERRLA, EOMI, Normocephalic Oral: Superficial erosion of lips. No deep buccal or oropharyngeal aphthous ulcer seen. Neck: Supple, No JVD, Negative Carotid Bruits Lungs: Air entry diminished in bilateral lung bases. No crepitation/rhonchi Cardiovascular: Regular rate, Regular Rhythm, Normal S1, Normal S2, No murmurs Abdomen: Bowel Sounds Present, Soft, Non Tender, Non-Distended : No renal angle tenderness. No suprapubic tenderness. Extremities: No edema, Capillary Refill Less than 3 Seconds Skin: No rashes, No breakdown Musculoskeletal: No Tenderness to Palpation of Joints or Extremities Neurological: Cranial nerves II-XII grossly intact, DTR 2+/4 and Symmetrical, Neuro grossly intact Psych/Mental Status: Normal Affect, Appropriate. Assessment & Plan Assessment/Plan (1) Neutropenic fever: PLAN: Plan The patient is a 66 y/o F was admitted with fever T-max 100.8 Fahrenheit, abdominal pain, nausea dyspnea, cough and oral sore. Patient did not had vomiting. Fever for 1 day along with sore throat, fatigue, malaise, increased sleep, abdominal bloating and loose stool.? #1.? Neutropenic fever with with history of? Triple Negative, right Breast CA diagnosis, status post recent chemotherapy with concurrent pancytopenia: Chest x-ray individually reviewed shows no acute cardiopulmonary finding. UA not suggestive of UTI.Admitting CBC shows 0.4 thousand WBC, ANC 0.1 thousand, hemoglobin 8.1, platelet count 119,000. Patient empirically of IV vancomycin and Zosyn. Last echo in February 2022 shows EF 65%, mild LAE, trivial MR and TR. 07/24: Patient on vancomycin and Zosyn. Blood cultures pending. Granix started asked ANC is less than 5000. hypophosphatemia, IV phosphate ordered. 2.? Mild electrolyte abnormality: Potassium 3.6. Phosphorus 2.3. On IV potassium phosphate. Serum magnesium 1.9. 3.? Left breast cancer with recurrence to right breast cancer: History left breast cancer status postlumpectomy, radiotherapy 2016 with recent diagnosis of recurrence in right breast in May 02 to , noted to be triple negative.? Patient has first chemotherapy on about 07/03/2022 and 3 days prior to admission. She is on neoadjuvant chemotherapy, cycle 2. [facility] [address] [facility] #4.? Hyperglycemia, mild: Glucose 131, 103. Recent hemoglobin A1c 5.6%, normal #5.? Hypertension: Continue home regimen including lisinopril with hold parameters, PRN hydralazine. #6.? Hyperlipidemia: Not on any regimen, follow-up outpatient #7.? GERD:continue patient home PPI. #8.? Morbid Obesity, anxiety and depression: Weight loss and lifestyle changes encouraged. ?DVT prophylaxis: SCDs, defer chemoprophylaxis given acute presentation with pancytopenia with notable thrombocytopenia. .? CODE status: Patient HCPOA is not set up however patient does have a living will in place.? Full code Microbiology Past 72 Hours 07/23/22 16:30 Urine, Clean Catch Urine Culture - Preliminary Culture exhibits no growth. 07/23/22 15:15 Nasal Secretion SARS-CoV-2 Antigen (Rapid) - Final Laboratory Results 07/23/22 15:20: Lactic Acid 1.6 07/23/22 15:40: WBC 0.4 L*, RBC 2.89 L, Hgb 8.1 L, Hct 25.9 L, MCV 89.6, MCH 28.0, MCHC 31.3 L, RDW Std Deviation 46.5 H, RDW Coeff of Tj 14.6, Plt Count 119 L, MPV 9.5, Immature Gran % (Auto) 0.000, Neut % (Auto) 15.0 L, Lymph % (Auto) 42.5 H, [place] % (Auto) 37.5 H, Eos % (Auto) 0.0, Baso % (Auto) 5.0 H, Absolute Neuts (auto) 0.1 L, Absolute Lymphs (auto) 0.17 L, Nucleated RBC % 0, Differential Comment SEE COMMENTS, Diff Path Review May foll, Platelet Estimate SLT DEC, RBC Morphology N CHROM, Anisocytosis RARE, Macrocytosis RARE 07/23/22 15:40: PT 13.9, INR 1.1, APTT 27.0 07/23/22 15:40: Sodium 137, Potassium 3.8, Chloride 102, Carbon Dioxide 30.0, Anion Gap 5, BUN 14, Creatinine 0.90, Estim Creat Clear Calc 49.49, Est GFR (MDRD) Af Amer 80, Est GFR (MDRD) Non-Af 66, BUN/Creatinine Ratio 15.6, Glucose 131 H, Calcium 8.4 L, Total Bilirubin 0.40, AST 12 L, ALT 19, Alkaline Phosphatase 78, Total Protein 6.4, Albumin 2.9 L, Globulin 3.5, Albumin/Globulin Ratio 0.8 L 07/23/22 15:40: Phosphorus 2.3 L, Magnesium 1.9 07/23/22 15:40: Procalcitonin 0.13 H 07/23/22 16:30: Urine Color Yellow, Urine Clarity Clear, Urine pH 7.0, Ur Specific [place] 1.010, Urine Protein Negative, Urine Glucose (UA) Normal, Urine Ketones Negative, Urine Occult Blood Negative, Urine Nitrite Negative, Urine Bilirubin Negative, Urine Urobilinogen Normal, Ur Leukocyte Esterase Negative, Urine RBC 0 SEEN, Urine WBC 0-5 SEEN, Ur Squamous Epith Cells 0 SEEN, Urine Bacteria 0 SEEN, Urine Mucus 0 SEEN 07/24/22 07:40: WBC 0.8 L*, RBC 2.59 L, Hgb 7.3 L, Hct 23.3 L, MCV 90.0, MCH 28.2, MCHC 31.3 L, RDW Std Deviation 46.5 H, RDW Coeff of Tj 14.6, Plt Count 105 L, MPV 10.1, Immature Gran % (Auto) 2.500 H, Neut % (Auto) 30.5 L, Lymph % (Auto) 31.6, [place] % (Auto) 32.9 H, Eos % (Auto) 0.0, Baso % (Auto) 2.5 H, Absolute Neuts (auto) 0.2 L, Absolute Lymphs (auto) 0.25 L, Nucleated RBC % 0, Differential Comment SCANNED, Diff Path Review May foll, Atypical Lymphocytes 1+ 07/24/22 07:40: Sodium 139, Potassium 3.6, Chloride 106, Carbon Dioxide 27.0, Anion Gap 6, BUN 11, Creatinine 0.67, Estim Creat Clear Calc 44.54, Est GFR (MDRD) Af Amer 113, Est GFR (MDRD) Non-Af 93, BUN/Creatinine Ratio 16.5, Glucose 103, Calcium 8.0 L, Total Bilirubin 0.40, AST 9 L, ALT 15, Alkaline Phosphatase 66, Total Protein 5.6 L, Albumin 2.6 L, Globulin 3.0, Albumin/Globulin Ratio 0.9 Charges/Coding Visit Charges Inpatient E&M: 80739 Subs Hosp L2
[2022-07-24 08:05] LABS: Absolute Lymphocyte Count 0.25 X10^3/uL (0.83-4.51); Absolute Neutrophil Count 0.2 X10^3/uL (2.0-7.7); Basophil# 0.02 X10^3/uL; Basophil% 2.5 % (0-1); Hematocrit 23.3 % (37-47); Hemoglobin 7.3 g/dL (12.0-15.0); Lymphocyte # 0.25 X10^3/ul (0.83-4.51); Lymphocyte % 31.6 % (19-41); Mean Corp Hgb Conc 31.3 g/dL (32-36); Mean Corpuscular Hgb 28.2 pg (27.0-32.0); Mean Platelet Vol. 10.1 fl (6.2-12.0); Monocyte# 0.26 X10^3/uL; Monocyte% 32.9 % (0-10); NRBC Flagged by Analyzer 0 % (0-5); Neutrophil # 0.24 X10^3/uL (2.7-7.7); Neutrophil % 30.5 % (47-70); POSITIVE COUNT YES; POSITIVE DIFFERENTIAL YES; POSITIVE MORPHOLOGY YES; Platelet Count 105 K/mm3 (150-450); RBC Distribution Width CV 14.6 % (11.6-14.6); RBC Distribution Width SD 46.5 fl (35.1-43.9); Red Blood Count 2.59 M/mm3 (4.2-5.4)
[2022-07-24 08:08] LABS: Differential Indicated SCAN CRITERIA MET; White Blood Count 0.8 K/mm3 (4.4-11.0)
[2022-07-24 08:42] LABS: ALB/GLOB Ratio 0.9 RATIO (0.9-2.4); AST(SGOT) 9 U/L (15-37); Alanine Aminotransfer ALT/SGPT 15 U/L (13-56); Albumin, Serum 2.6 g/dL (3.2-5.0); Alkaline Phosphatase 66 U/L (45-117); Anion Gap 6 (5-15); BUN 11 mg/dL (7-18); BUN/Creat Ratio 16.5 RATIO (10-20); Chloride 106 mmol/L (98-107); Creatinine, Serum 0.67 mg/dL (0.55-1.02); EST Glomerular Filtration Rate 93 mL/min (>60); Est Glom Filt Rate - Afr Amer 113 mL/min (>60); Estimated Creatinine Clearance 44.54 ml/min; Glucose 103 mg/dL (74-106); Potassium 3.6 mmol/L (3.5-5.1); Protein, Total 5.6 g/dL (6.4-8.2); Sodium Level 139 mmol/L (136-145)
--- NOTE | 2022-07-24 09:03 | CPS ---
Patient unable to perform I.S. at this time due to complaint of mouth sores. I.S. placed in patient room.
[2022-07-24 09:23] LABS: Atypical Lymphocyte 1+ %; Differential Comment SCANNED
[2022-07-24] MEDS: TBO-FILGRASTIM 480 MCG/0.8 ML ML SC (09:46)
[2022-07-24] MEDS: Loratadine 10 MG Tablet PO (09:47)
[2022-07-24] MEDS: Pantoprazole Sodium 20 MG Tablet PO (09:47)
[2022-07-24] MEDS: Multivitamins,Therapeutic Tablet 1 TABLET PO (09:47)
[2022-07-24] MEDS: Sertraline 50 MG Tablet 25 MG PO (14:06)
[2022-07-24] MEDS: Ondansetron 4 MG/2 ML Vial IV (15:56)
[2022-07-24] MEDS: 0.9% Saline Lock 10 ML Syringe IV (15:57)
[2022-07-24] MEDS: MELATONIN 3 MG TABLET PO (21:41)
[2022-07-24] MEDS: amLODIPine 2.5 MG Tablet PO (21:42)
[2022-07-24] MEDS: Lisinopril 10 MG Tablet 30 MG PO (21:42)
[2022-07-25 02:20] VITALS: BP 137/79; PULSE 86; RESP 18; TEMP 36.8; O2SAT 95
[2022-07-25] MEDS: Senna/Docusate Sodium 1 Tablet 2 TABLET PO (05:43)
[2022-07-25 08:20] VITALS: BP 121/67; PULSE 85; RESP 18; TEMP 36.6; O2SAT 95
[2022-07-25] MEDS: Pantoprazole Sodium 20 MG Tablet PO (08:40)
[2022-07-25] MEDS: TBO-FILGRASTIM 300 MCG/0.5 ML ML SC (08:40)
[2022-07-25] MEDS: Multivitamins,Therapeutic Tablet 1 TABLET PO ×2 (08:40→08:41)
[2022-07-25] MEDS: Loratadine 10 MG Tablet PO (08:41)
[2022-07-25 09:00] LABS: Vancomycin, Trough Level 22.2 ug/mL (5.0-15.0)
--- NOTE | 2022-07-25 09:02 | PN.HOSP_ITS ---
Subjective Subjective Feels well. Anxious to go home. Objective Data Objective Data Vital Signs: Vital Signs Temp Pulse Resp BP Pulse Ox O2 Del Method 36.8 C 86 18 137/79 H 95 Room Air 07/25/22 02:20 07/25/22 02:20 07/25/22 02:20 07/25/22 02:20 07/25/22 02:20 07/25/22 02:20 Oxygen Delivery Method Room Air Weight: 111.1 kg Body Mass Index (BMI) 43.3 Intake & Output: Intake and Output for Last 24 Hours 07/23/22 07/24/22 07/25/22 23:59 23:59 23:59 Intake Total 1640 / 1640 3970 / 4270 550 / 550 Balance 1640 / 1640 3970 / 4270 550 / 550 Lab / Micro Data Result Diagrams: 07/25/22 08:00 07/25/22 08:00 Labs: Laboratory Results - last 24 hr 07/24/22 07:40: Differential Comment SCANNED, Diff Path Review May foll, Atypical Lymphocytes 1+ 07/25/22 07:50: Vancomycin Trough 22.2 H Micro: Microbiology 07/23/22 16:30 Urine, Clean Catch Urine Culture - Preliminary Culture exhibits no growth. 07/23/22 15:15 Nasal Secretion SARS-CoV-2 Antigen (Rapid) - Final Physical Exam Const alert and no apparent distress Resp normal respiratory effort, no retractions, no use of accessory muscles and clear to auscultation bilaterally Cardio regular rate, regular rhythm, S1 normal heart sound and S2 normal heart sound GI normal to inspection, nondistended, normoactive bowel sounds and soft to palpation Assessment & Plan Assessment/Plan (1) Neutropenic fever: PLAN: Neutropenic fever with with history of? Triple Negative, right Breast CA diagnosis, status post recent chemotherapy with concurrent pancytopenia: Chest x-ray individually reviewed shows no acute cardiopulmonary finding. UA not s uggestive of UTI.Admitting CBC shows 0.4 thousand WBC, ANC 0.1 thousand, hemoglobin 8.1, platelet count 119,000. Patient empirically of IV vancomycin and Zosyn. Last echo in February 2022 shows EF 65%, mild LAE, trivial MR and TR. 07/24: Patient on vancomycin and Zosyn. Blood cultures pending. Granix started asked ANC is less than 5000. hypophosphatemia, IV phosphate ordered 07/25: UCx show mixed GPOs. Low CFUs, therefore unlikely true infection. Blood cultures still pending. (2) Neutropenia: QUALIFIERS: Neutropenia type: secondary to cancer chemotherapy Qualified Code(s): D70.1 - Agranulocytosis secondary to cancer chemotherapy; T45.1X5A - Adverse effect of antineoplastic and immunosuppressive drugs, initial encounter PLAN: Improved with Tbo-filgrastim x2 doses though did only improve after 1 dose and did receive a second dose after the increase was seen. Anticipate increased tomorrow but will hold off on additional Tbo-Filgrastim. ANC >5k, will DC and monitor (3) Pancytopenia due to antineoplastic chemotherapy: PLAN: Hg 8. Monitor (4) Breast cancer: PLAN: Left breast cancer with recurrence to right breast cancer: History left breast cancer status postlumpectomy, radiotherapy 2015 with recent diagnosis of recurrence in right breast in May 02 to , noted to be triple negative.? Patient has first chemotherapy on about 07/03/2022 and 3 days prior to admission. She is on neoadjuvant chemotherapy, cycle 2. Plan for bilateral mastectomy in November [address] Espinoza, [facility]. (5) Hyperglycemia: PLAN: Hyperglycemia, mild: Glucose 131, 103. Recent hemoglobin A1c 5.6%, normal PLAN: Plan Chronic conditions: * Hypertension: Continue home regimen including lisinopril with hold parameters, PRN hydralazine. * Hyperlipidemia: Not on any regimen, follow-up outpatient * GERD:continue patient home PPI. * Morbid Obesity: Weight loss and lifestyle changes encouraged. ?DVT prophylaxis: SCDs, defer chemoprophylaxis given acute presentation with pancytopenia with notable thrombocytopenia. CODE status: Patient HCPOA is not set up however patient does have a living will in place.? Full code Disposition: TBD. Follow up blood cultures. Cultures are negative on the and would dissipate discharge on the . Charges/Coding Visit Charges Inpatient E&M: 77676 Subs Hosp L2
[2022-07-25 09:44] LABS: Hematocrit 25.6 % (37-47); Mean Corp Hgb Conc 31.3 g/dL (32-36); Mean Corpuscular Hgb 27.8 pg (27.0-32.0); Mean Corpuscular Volume 88.9 fL (81-99); Mean Platelet Vol. 10.9 fl (6.2-12.0); POSITIVE COUNT YES; POSITIVE DIFFERENTIAL YES; POSITIVE MORPHOLOGY YES; Platelet Count 120 K/mm3 (150-450); RBC Distribution Width CV 14.7 % (11.6-14.6); RBC Distribution Width SD 46.3 fl (35.1-43.9); Red Blood Count 2.88 M/mm3 (4.2-5.4); White Blood Count 6.5 K/mm3 (4.4-11.0)
[2022-07-25 09:46] LABS: Differential Indicated MANUAL DIFF
[2022-07-25 09:53] LABS: Anion Gap 6 (5-15); BUN 9 mg/dL (7-18); BUN/Creat Ratio 11.9 RATIO (10-20); Calcium,Total 8.7 mg/dL (8.5-10.1); Chloride 107 mmol/L (98-107); Creatinine, Serum 0.76 mg/dL (0.55-1.02); EST Glomerular Filtration Rate 80 mL/min (>60); Est Glom Filt Rate - Afr Amer 97 mL/min (>60); Estimated Creatinine Clearance 44.54 ml/min; Glucose 114 mg/dL (74-106); Potassium 3.9 mmol/L (3.5-5.1); Sodium Level 141 mmol/L (136-145)
[2022-07-25 10:17] LABS: Lymphocyte 9 % (19-41); Metamyelocyte 5 % (0-1); Monocyte 1 % (0-10); Myelocyte 1 % (0-0); Neutrophil-Band 10 % (0-5); Neutrophil-Segmented 74 % (47-70); Total Cells Counted 100 (MANUAL DIFF)
[2022-07-25 10:18] LABS: Anisocytosis 1+; Hypochromasia 1+; Platelet Estimate SLT DEC (ADEQ)
[2022-07-25 10:19] LABS: Absolute Lymphocyte Count 0.58 X10^3/uL (0.83-4.51); Absolute Neutrophil Count 5.4 X10^3/uL (2.0-7.7); Lymphocyte # 0.58 X10^3/ul (0.83-4.51); Neutrophil # 5.43 X10^3/uL (2.7-7.7)
--- NOTE | 2022-07-25 10:30 | CASEMGMT ---
EMMIE DANIELS readmission note: Prior admission: Pt admitted 07/10/22 w/neutropenic fever. Pt had recently been diagnosed w/triple negative breast CA in April and presented to [facility] about a week after receiving chemo. Pt discharged home 07/12 on PO Levaquin and to f/u w/PCP. Pt also instructed to notify her oncologist re: neutropenic fever. See EMMIE DANIELS, Christel Mota, assessment 07/11. Pt declined wanting [facility] at discharge. Current admission: Pt admitted 07/24 w/neutropenic fever after second round of chemo. MEMIE DANIELS to room and introduced self and role. Pt sitting up in recliner. She states her symptoms this time were very similar to the first round of chemo. WBC 0.4 on admission and up to 6.5 today. ANC 0.1 on admit and up to 5.4 today. Pt has been given Granix and was started on IV vanco and zosyn, pending cultures. Pt states she did take the Levaquin after being discharged last admission and has been taking all of her medications as prescribed. She missed the appt w/AUTOMATIC MACHINE ATTENDANT Beverly Colunga on 07/13, stating, I took the discharge papers home and set them down and didn't see the appt on there. I didn't realize I even had the appt. She states she did f/u with RACHEL Rolle, @ Dr Jones's office and her next appt is scheduled for tomorrow @ 1:45 PM. She states she has notified PCP's office of reason for missing the appt and they are aware she is following closely w/oncology. Pt states she has a great support system @ home, stating that her significant other is very helpful and attentive. Pt denies having any discharge planning needs or concerns. Concepción SOLARES RN, CM
--- NOTE | 2022-07-25 10:31 | PCM.RX.CS ---
Consult Pharmacy has been consulted to manage selected antiobiotic: Vancomycin Type of Consult: Follow-up Labs: Sodium 141 mmol/L (136-145) 07/25/22 08:00 Potassium 3.9 mmol/L (3.5-5.1) 07/25/22 08:00 Chloride 107 mmol/L (98-107) 07/25/22 08:00 Carbon Dioxide 28.0 mmol/L (21.0-32.0) 07/25/22 08:00 Anion Gap 6 (5-15) 07/25/22 08:00 BUN 9 mg/dL (7-18) 07/25/22 08:00 Creatinine 0.76 mg/dL (0.55-1.02) 07/25/22 08:00 Est GFR (MDRD) Af Amer 97 mL/min (>60) 07/25/22 08:00 Est GFR (MDRD) Non-Af 80 mL/min (>60) 07/25/22 08:00 BUN/Creatinine Ratio 11.9 RATIO (10-20) 07/25/22 08:00 Glucose 114 mg/dL (74-106) H 07/25/22 08:00 Vancomycin Trough 22.2 ug/mL (5.0-15.0) H 07/25/22 08:00 Microbiology: Microbiology 07/23/22 16:30 Urine, Clean Catch Urine Culture - Final Mixed Gram Positive Organisms 07/23/22 15:15 Nasal Secretion SARS-CoV-2 Antigen (Rapid) - Final Goal Trough: 15-20 mcg/mL Pharmacy Plan for Drug Dosing: VANCOMYCIN LEVEL RECEIVED Current Vancomycin Dose: 1500mg q12 (30,2029) Number of Doses Received: x1 loading dose, x2 1500mg doses Vancomycin Level: 22.2 Hours Since Last Dose: 12 Renal Function: SrCr 0.76 Renal Function Trend: SrCr improving (was 0.9 on 07/23/22) Lab/Micro: Vancomycin Plan/Comments: recommend holding further doses of Vancomycin and checking a random level 07/26/22 at 0800 Pending Level: 07/26/22 at 0800 Pharmacy Service will continue to monitor and adjust dosing as required. Follow-Up Labs: Trough Vancomycin - 07/26/22 @0800
[2022-07-25 13:25] LABS: Pathologist Review Reviewed
[2022-07-25 13:25] LABS: Pathologist Review Reviewed
[2022-07-25] MEDS: Sertraline 50 MG Tablet 25 MG PO (14:09)
[2022-07-25 14:54] VITALS: BP 124/70; PULSE 82; RESP 16; TEMP 36.5; O2SAT 96
[2022-07-25 20:46] VITALS: BP 153/70; PULSE 97; RESP 16; TEMP 36.8; O2SAT 96
[2022-07-25] MEDS: Lisinopril 10 MG Tablet 30 MG PO (21:06)
[2022-07-25] MEDS: amLODIPine 2.5 MG Tablet PO (21:06)
[2022-07-25] MEDS: MELATONIN 10 MG TABLET PO (22:41)
[2022-07-26 03:24] VITALS: BP 147/84; PULSE 98; RESP 16; TEMP 36.6; O2SAT 94
--- NOTE | 2022-07-26 07:39 | PN.HOSP_ITS ---
Subjective Subjective Feels good. No events. Objective Data Objective Data Vital Signs: Vital Signs Temp Pulse Resp BP Pulse Ox O2 Del Method 36.6 C 98 16 147/84 H 94 Room Air 07/26/22 03:24 07/26/22 03:24 07/26/22 03:24 07/26/22 03:24 07/26/22 03:24 07/26/22 03:24 Oxygen Delivery Method Room Air Weight: 111.1 kg Body Mass Index (BMI) 43.3 Intake & Output: Intake and Output for Last 24 Hours 07/24/22 07/25/22 07/26/22 23:59 23:59 23:59 Intake Total 3970 / 4270 1180 / 1180 450 / 450 Balance 3970 / 4270 1180 / 1180 450 / 450 Lab / Micro Data Result Diagrams: 07/26/22 08:05 07/26/22 08:05 Labs: Laboratory Results - last 24 hr 07/23/22 15:40: Diff Path Review Reviewed 07/24/22 07:40: Diff Path Review Reviewed 07/25/22 08:00: Vancomycin Trough 22.2 H 07/25/22 08:00: WBC 6.5, RBC 2.88 L, Hgb 8.0 L, Hct 25.6 L, MCV 88.9, MCH 27.8, MCHC 31.3 L, RDW Std Deviation 46.3 H, RDW Coeff of Tj 14.7 H, Plt Count 120 L, MPV 10.9, Neut % (Auto) Not Reportable, Absolute Neuts (auto) 5.4, Absolute Lymphs (auto) 0.58 L, Total Counted 100, Neutrophils % (Manual) 74 H, Band Neutrophils % 10 H, Lymphocytes % (Manual) 9 L, Monocytes % (Manual) 1, Metamyelocytes % 5 H, Myelocytes % 1 H, Diff Path Review May foll, Platelet Estimate SLT DEC, Hypochromasia 1+, Anisocytosis 1+ 07/25/22 08:00: Sodium 141, Potassium 3.9, Chloride 107, Carbon Dioxide 28.0, Anion Gap 6, BUN 9, Creatinine 0.76, Estim Creat Clear Calc 44.54, Est GFR (MDRD) Af Amer 97, Est GFR (MDRD) Non-Af 80, BUN/Creatinine Ratio 11.9, Glucose 114 H, Calcium 8.7 Micro: Microbiology 07/23/22 16:30 Urine, Clean Catch Urine Culture - Final Mixed Gram Positive Organisms 07/23/22 15:15 Nasal Secretion SARS-CoV-2 Antigen (Rapid) - Final Physical Exam Const alert and no apparent distress Resp normal respiratory effort, no retractions, no use of accessory muscles and clear to auscultation bilaterally Cardio regular rate, regular rhythm, S1 normal heart sound and S2 normal heart sound Assessment & Plan Assessment/Plan (1) Neutropenic fever: PLAN: Neutropenic fever with with history of? Triple Negative, right Breast CA diagnosis, status post recent chemotherapy with concurrent pancytopenia: Chest x-ray individually reviewed shows no acute cardiopulmonary finding. UA not suggestive of UTI.Admitting CBC shows 0.4 thousand WBC, ANC 0.1 thousand, hemoglobin 8.1, platelet count 119,000. Patient empirically of IV vancomycin and Zosyn. Last echo in February 2022 shows EF 65%, mild LAE, trivial MR and TR. 07/24: Patient on vancomycin and Zosyn. Blood cultures pending. Granix started asked ANC is less than 5000. hypophosphatemia, IV phosphate ordered 07/25: UCx show mixed GPOs. Low CFUs, therefore unlikely true infection. Blood cultures still pending. (2) Neutropenia: QUALIFIERS: Neutropenia type: secondary to cancer chemotherapy Qualified Code(s): D70.1 - Agranulocytosis secondary to cancer chemotherapy; T45.1X5A - Adverse effect of antineoplastic and immunosuppressive drugs, initial encounter PLAN: Improved with Tbo-filgrastim x2 doses though did only improve after 1 dose and did receive a second dose after the increase was seen. Anticipate increased tomorrow but will hold off on additional Tbo-Filgrastim. ANC >5k, will DC and monitor (3) Pancytopenia due to antineoplastic chemotherapy: PLAN: Hg 8. Monitor (4) Breast cancer: PLAN: Left breast cancer with recurrence to right breast cancer: History left breast cancer status postlumpectomy, radiotherapy 2015 with recent diagnosis of recurrence in right breast in May 02 to , noted to be triple negative.? Patient has first chemotherapy on about 07/03/2022 and 3 days prior to admission. She is on neoadjuvant chemotherapy, cycle 2. Plan [facility] in November [address] [facility]. (5) Hyperglycemia: PLAN: Hyperglycemia, mild: Glucose 131, 103. Recent hemoglobin A1c 5.6%, normal PLAN: Plan Chronic conditions: * Hypertension: Continue home regimen including lisinopril with hold parameters, PRN hydralazine. * Hyperlipidemia: Not on any regimen, follow-up outpatient * GERD:continue patient home PPI. * Morbid Obesity: Weight loss and lifestyle changes encouraged. ?DVT prophylaxis: SCDs, defer chemoprophylaxis given acute presentation with pancytopenia with notable thrombocytopenia. CODE status: Patient HCPOA is not set up however patient does have a living will in place.? Full code Disposition: TBD. Follow up blood cultures. Cultures are negative on the and would dissipate discharge on the .
[2022-07-26] MEDS: Pantoprazole Sodium 20 MG Tablet PO (07:57)
[2022-07-26] MEDS: Loratadine 10 MG Tablet PO (07:57)
[2022-07-26 08:22] LABS: Hematocrit 25.9 % (37-47); Hemoglobin 8.2 g/dL (12.0-15.0); Mean Corp Hgb Conc 31.7 g/dL (32-36); Mean Corpuscular Hgb 29.1 pg (27.0-32.0); Mean Corpuscular Volume 91.8 fL (81-99); Mean Platelet Vol. 10.1 fl (6.2-12.0); POSITIVE COUNT YES; POSITIVE MORPHOLOGY YES; Platelet Count 128 K/mm3 (150-450); RBC Distribution Width CV 15.3 % (11.6-14.6); RBC Distribution Width SD 47.5 fl (35.1-43.9); Red Blood Count 2.82 M/mm3 (4.2-5.4)
[2022-07-26 08:24] LABS: Differential Indicated MANUAL DIFF
[2022-07-26 08:46] LABS: Anion Gap 5 (5-15); BUN 7 mg/dL (7-18); BUN/Creat Ratio 8.6 RATIO (10-20); Calcium,Total 8.7 mg/dL (8.5-10.1); Chloride 107 mmol/L (98-107); Creatinine, Serum 0.81 mg/dL (0.55-1.02); EST Glomerular Filtration Rate 74 mL/min (>60); Est Glom Filt Rate - Afr Amer 90 mL/min (>60); Estimated Creatinine Clearance 54.99 ml/min; Glucose 141 mg/dL (74-106); Potassium 3.7 mmol/L (3.5-5.1); Sodium Level 141 mmol/L (136-145); Vancomycin, Random Level 17.2 ug/mL (0.0-15.0)
[2022-07-26 09:15] VITALS: BP 126/73; PULSE 99; RESP 18; TEMP 36.6; O2SAT 99
[2022-07-26 09:16] VITALS: O2SAT 94
--- NOTE | 2022-07-26 10:23 | PCM.RX.CS ---
Consult Pharmacy has been consulted to manage selected antiobiotic: Vancomycin Type of Consult: Follow-up Prior Doses of Antibiotics Received/Current Regimen: 07/24 @ 0907/24 @ 07/25 @ 0850 Further doses held due to trough 22.2 Labs: Sodium 141 mmol/L (136-145) 07/26/22 08:05 Potassium 3.7 mmol/L (3.5-5.1) 07/26/22 08:05 Chloride 107 mmol/L (98-107) 07/26/22 08:05 Carbon Dioxide 29.0 mmol/L (21.0-32.0) 07/26/22 08:05 Anion Gap 5 (5-15) 07/26/22 08:05 BUN 7 mg/dL (7-18) 07/26/22 08:05 Creatinine 0.81 mg/dL (0.55-1.02) 07/26/22 08:05 Est GFR (MDRD) Af Amer 90 mL/min (>60) 07/26/22 08:05 Est GFR (MDRD) Non-Af 74 mL/min (>60) 07/26/22 08:05 BUN/Creatinine Ratio 8.6 RATIO (10-20) L 07/26/22 08:05 Glucose 141 mg/dL (74-106) H 07/26/22 08:05 Vancomycin Trough 22.2 ug/mL (5.0-15.0) H 07/25/22 08:00 Random Vancomycin 17.2 ug/mL (0.0-15.0) H 07/26/22 08:05 Microbiology: Microbiology 07/23/22 16:30 Urine, Clean Catch Urine Culture - Final Mixed Gram Positive Organisms 07/23/22 15:15 Nasal Secretion SARS-CoV-2 Antigen (Rapid) - Final Estimated Creatinine Clearance: 55 Goal Trough: 15-20 mcg/mL Pharmacy Plan for Drug Dosing: restart vancomycin 07/26/22 @ 1400 vancomycin 1250mg q12h Pharmacy Service will continue to monitor and adjust dosing as required. Follow-Up Labs: Trough Vancomycin Labs to be done on [date and time ordered]: 07/28/22 @ 0130
[2022-07-26 10:59] LABS: Neutrophil-Segmented 77 % (47-70); Total Cells Counted 100 (MANUAL DIFF)
[2022-07-26 11:00] LABS: Hypochromasia 1+; Lymphocyte 12 % (19-41); Metamyelocyte 6 % (0-1); Monocyte 2 % (0-10); Myelocyte 3 % (0-0); Ovalocyte 1+
[2022-07-26 11:02] LABS: Absolute Lymphocyte Count 1.92 X10^3/uL (0.83-4.51); Absolute Neutrophil Count 12.3 X10^3/uL (2.0-7.7); Platelet Estimate ADEQUATE (ADEQ)
--- NOTE | 2022-07-26 11:11 | DCINST_ITS ---
Discharge Instructions Diet Discharge Diet: No restrictions Dressing / Incision Call your doctor if you observe: Fever of 101 or Higher Follow Up Care Test Results: Test results from this visit will be discussed in further detail at your follow- up appointment, if applicable. Discharge Plan Admission Admit Date/Time: 07/24/22 12:58 Primary Reason for Your Visit: Neutropenia. neutropenic fever. Attending Provider: Jeremias Cardozo Primary Care Provider: Beverly Colunga NP Consulting Providers: Marixa Knott ; Yasmany Vyas Discharge Orders/Prescriptions Prescriptions: New lidocaine HCl [Lidocaine Viscous] 2 % Solution 10 ml PO Q3H PRN PRN (Reason: sore mouth/oropharynx) Qty: 100 0RF Continued clobetasol 0.05 % cream 1 applic TOPICAL BID PRN (Reason: Skin Cleansing) multivitamin Tablet 1 tab PO DAILY omeprazole 20 MG capsule,delayed release(DR/EC) 20 mg PO DAILY Label Comments: TK 1 C PO ONCE DAILY sertraline 25 mg tablet 25 mg PO DAILY Label Comments: Take 1 tablet by mouth once daily. amlodipine 2.5 mg Tablet 2.5 mg PO QHS lisinopril 30 mg Tablet 30 mg PO QHS Referrals / Follow Up: Beverly Colunga NP, RECEPTIONIST CLERK-C [Primary Care Provider] - Disposition Disposition (needs filled in before D/C Order can be placed): Home, Self Care
--- NOTE | 2022-07-26 11:14 | PCM.DC.SUM ---
Providers Date of Admission: 07/24/22 Primary Care Physician: MARGARITA Buchanan Reason For Visit: NUETROPENIC FEVER, RECENT CHEMOTHERAPY Diagnosis Discharge Diagnosis (1) Neutropenic fever: Status: Acute Code(s): D70.9 - Neutropenia, unspecified; R50.81 - Fever presenting with conditions classified elsewhere Plan: Neutropenic fever with with history of? Triple Negative, right Breast CA diagnosis, status post recent chemotherapy with concurrent pancytopenia: Chest x-ray individually reviewed shows no acute cardiopulmonary finding. UA not suggestive of UTI.Admitting CBC shows 0.4 thousand WBC, ANC 0.1 thousand, hemoglobin 8.1, platelet count 119,000. Patient empirically of IV vancomycin and Zosyn. Last echo in February 2022 shows EF 65%, mild LAE, trivial MR and TR. 07/24: Patient on vancomycin and Zosyn. Blood cultures pending. Granix started asked ANC is less than 5000. hypophosphatemia, IV phosphate ordered 07/25: UCx show mixed GPOs. Low CFUs, therefore unlikely true infection. Blood cultures still pending. With all cultures negative, will dc abx. (2) Neutropenia: Status: Acute Code(s): D70.9 - Neutropenia, unspecified Qualifiers: Neutropenia type: secondary to cancer chemotherapy Qualified Code(s): D70.1 - Agranulocytosis secondary to cancer chemotherapy; T45.1X5A - Adverse effect of antineoplastic and immunosuppressive drugs, initial encounter Plan: Improved with Tbo-filgrastim x2 doses though did only improve after 1 dose and did receive a second dose after the increase was seen. Anticipate increased tomorrow but will hold off on additional Tbo-Filgrastim. (3) Pancytopenia due to antineoplastic chemotherapy: Status: Acute Code(s): D61.810 - Antineoplastic chemotherapy induced pancytopenia; T45.1X5A - Adverse effect of antineoplastic and immunosuppressive drugs, initial encounter Plan: Hg 8. Monitor (4) Breast cancer: Status: Acute Code(s): C50.919 - Malignant neoplasm of unspecified site of unspecified female breast Plan: Left breast cancer with recurrence to right breast cancer: History left breast cancer status postlumpectomy, radiotherapy 2015 with recent diagnosis of recurrence in right breast in May 02 to , noted to be triple negative.? Patient has first chemotherapy on about 07/03/2022 and 3 days prior to admission. She is on neoadjuvant chemotherapy, cycle 2. Plan for [facility]aste[facility] in November [address] [facility]. (5) Hyperglycemia: Status: Acute Code(s): R73.9 - Hyperglycemia, unspecified Plan: Hyperglycemia, mild: Glucose 131, 103. Recent hemoglobin A1c 5.6%, normal Plan Chronic conditions: Hypertension: Continue home regimen including lisinopril with hold parameters, PRN hydralazine. Hyperlipidemia: Not on any regimen, follow-up outpatient GERD:continue patient home PPI. Morbid Obesity: Weight loss and lifestyle changes encouraged. Medications at Discharge Home Medications omeprazole 20 mg capsule,delayed release 20 mg PO DAILY 05/01/18 clobetasol 0.05 % topical cream 1 applic topical BID PRN Skin Cleansing 03/04/21 multivitamin 1 tab PO DAILY 03/03/22 amlodipine 2.5 mg tablet 2.5 mg PO QHS bp 07/10/22 lisinopril 30 mg tablet 30 mg PO QHS bp 07/10/22 sertraline 25 mg tablet 25 mg PO DAILY 07/10/22 lidocaine HCl 2 % mucosal solution (Lidocaine Viscous) 10 ml PO Q3H PRN PRN sore mouth/oropharynx #100 mL 07/26/22 Weight / BMI Weight Weight: 111.1 kg Body Mass Index (BMI) 43.3 ABG / Lab / Microbiology Data Result Diagrams: 07/26/22 08:05 07/26/22 08:05 Laboratory: Laboratory Results - last 24 hr 07/23/22 15:40: Diff Path Review Reviewed 07/24/22 07:40: Diff Path Review Reviewed 07/26/22 08:05: WBC 16.0 H, RBC 2.82 L, Hgb 8.2 L, Hct 25.9 L, MCV 91.8, MCH 29.1, MCHC 31.7 L, RDW Std Deviation 47.5 H, RDW Coeff of Tj 15.3 H, Plt Count 128 L, MPV 10.1, Neut % (Auto) Not Reportable, Absolute Neuts (auto) 12.3 H, Absolute Lymphs (auto) 1.92, Total Counted 100, Neutrophils % (Manual) 77 H, Lymphocytes % (Manual) 12 L, Monocytes % (Manual) 2, Metamyelocytes % 6 H, Myelocytes % 3 H, Diff Path Review May foll, Platelet Estimate ADEQUATE, Hypochromasia 1+, Ovalocytes 1+ 07/26/22 08:05: Sodium 141, Potassium 3.7, Chloride 107, Carbon Dioxide 29.0, Anion Gap 5, BUN 7, Creatinine 0.81, Estim Creat Clear Calc 54.99, Est GFR (MDRD) Af Amer 90, Est GFR (MDRD) Non-Af 74, BUN/Creatinine Ratio 8.6 L, Glucose 141 H, Calcium 8.7 07/26/22 08:05: Random Vancomycin 17.2 H Microbiology: Microbiology 07/23/22 16:30 Urine, Clean Catch Urine Culture - Final Mixed Gram Positive Organisms 07/23/22 15:15 Nasal Secretion SARS-CoV-2 Antigen (Rapid) - Final D/C Instructions Discharge Diet: No restrictions Call your doctor if you observe: Fever of 101 or Higher Meaningful Use Info Meaningful Use Diagnoses (Choose all that apply): None applicable Discharge Plan Admission Admit Date/Time: 07/24/22 12:58 Primary Reason for Your Visit: Neutropenia. neutropenic fever. Attending Provider: Jeremias Cardozo Primary Care Provider: Beverly Colunga NP Consulting Providers: Marixa Knott ; Yasmany Vyas Discharge Orders/Prescriptions Prescriptions: New lidocaine HCl [Lidocaine Viscous] 2 % Solution 10 ml PO Q3H PRN PRN (Reason: sore mouth/oropharynx) Qty: 100 0RF Continued clobetasol 0.05 % cream 1 applic TOPICAL BID PRN (Reason: Skin Cleansing) multivitamin Tablet 1 tab PO DAILY omeprazole 20 MG capsule,delayed release(DR/EC) 20 mg PO DAILY Label Comments: TK 1 C PO ONCE DAILY sertraline 25 mg tablet 25 mg PO DAILY Label Comments: Take 1 tablet by mouth once daily. amlodipine 2.5 mg Tablet 2.5 mg PO QHS lisinopril 30 mg Tablet 30 mg PO QHS Referrals / Follow Up: Beverly Colunga NP, ELECTRICAL CONTROLS ENGINEER-C [Primary Care Provider] - Disposition Disposition (needs filled in before D/C Order can be placed): Home, Self Care Charges/Coding Visit Charges Inpatient E&M: 51593 Disch Hosp
[2022-07-26 12:54] VITALS: BP 148/88; PULSE 93; RESP 18; TEMP 36.6; O2SAT 98
[2022-07-26 14:26] LABS: Pathologist Review Reviewed
[2022-07-28 10:23] LABS: Pathologist Review Reviewed
== END 2022-07-26 13:20 | disposition home or self-care (01) | DRG 809 ==
LOC: ED 18:02 → MS3 19:07
PROVIDERS: Admitting Provider Family Medicine; Emergency Provider Emergency Medicine; PCP Registered Nurse
DX: D70.1 Agranulocytosis secondary to cancer chemotherapy (principal); Z68.41 Body mass index [BMI] 40.0-44.9, adult; D69.6 Thrombocytopenia, unspecified; C50.412 Malignant neoplasm of upper-outer quadrant of left female breast; E66.01 Morbid (severe) obesity due to excess calories; D61.810 Antineoplastic chemotherapy induced pancytopenia; G43.909 Migraine, unspecified, not intractable, without status migrainosus; I10 Essential (primary) hypertension; K21.9 Gastro-esophageal reflux disease without esophagitis; M48.00 Spinal stenosis, site unspecified; K13.79 Other lesions of oral mucosa; F41.9 Anxiety disorder, unspecified; E78.5 Hyperlipidemia, unspecified; E83.39 Other disorders of phosphorus metabolism; Z79.899 Other long term (current) drug therapy; T45.1X5A Adverse effect of antineoplastic and immunosuppressive drugs, initial encounter; F32.A Depression, unspecified; Z92.3 Personal history of irradiation; R73.9 Hyperglycemia, unspecified
CPT/HCPCS: 36415; 36591; 71045; 80048; 80053; 80202; 81001; 83605; 83735; 84100; 84145; 85025; 85610; 85730; 87040; 87086; 87088; 87811; 93005; 99285; J7030; J7040; J7050; A4216; J1447; J2405

== ENCOUNTER → 2022-08-02 | Outpatient (CLI) | payer MEDICARE, OTHER, SELFPAY ==
[2022-08-02 12:02] VITALS: BP 147/87; PULSE 94; TEMP 36.1; O2SAT 93
[2022-08-02 12:35] VITALS: BP 132/53; PULSE 107; RESP 14; TEMP 35.6; O2SAT 92
[2022-08-02 13:35] VITALS: BP 153/82; PULSE 102; RESP 14; TEMP 35.7; O2SAT 95
[2022-08-02] MEDS: 0.9% NaCl VAD Flush IV (14:18)
[2022-08-02 14:20] VITALS: BP 149/86; PULSE 99; RESP 16; TEMP 36.1; O2SAT 96
[2022-08-02 14:26] VITALS: BP 149/86; PULSE 99; TEMP 36.1
== END | disposition home or self-care (01) ==
LOC: MEDOUTP 11:45
PROVIDERS: PCP Registered Nurse; Referring Provider Internal Medicine Hematology & Oncology; Visit Provider Internal Medicine Hematology & Oncology
DX: D64.81 Anemia due to antineoplastic chemotherapy (principal); T45.1X5A Adverse effect of antineoplastic and immunosuppressive drugs, initial encounter
CPT/HCPCS: 36430; 86850; 86900; 86901; 86920; 86922; J7040; P9016; A4216

== ENCOUNTER 2022-08-06 19:58 | Inpatient (IN) | payer MEDICARE, OTHER, SELFPAY ==
[2022-08-06 19:59] VITALS: BP 156/95; PULSE 113; RESP 17; TEMP 36.7; O2SAT 98; BMI 43.3
--- NOTE | 2022-08-06 20:13 | EDS_ITS ---
HPI History of Present Illness Chief Complaint: Fever Informant: patient Onset/Context/Timing Onset: Today and Yesterday Context: Gradual Onset Timing: Continuous Current Severity: Mild Maximum Severity: Mild Narrative Narrative: Has been 66-year-old female history of triple negative breast cancer diagnosed in April undergoing chemotherapy every 2 weeks. History of anemia requiring blood transfusion several weeks ago. Hypertension. Her last chemotherapy about 2 weeks ago she had to be admitted to the hospital for neutropenic fever. States she was feeling fine and normal. And had her last chemotherapy 1 week ago from Monday. Started having chills yesterday and fever 100.8 today. No dysuria but urinary frequency. No rash. No cough. No shortness of breath. No abdominal pain. Prior similar symptoms: Yes Recent Illness/Hospitalization: Yes PFSH [facility] Medical History Ambulates with cane Anemia Anemia Back pain Back pain Breast CA Breast cancer Breast cancer of upper-outer quadrant of left female breast Bronchitis Cardiology follow-up encounter Essential hypertension Gastric reflux GERD (gastroesophageal reflux disease) History of echocardiogram History of edema History of irregular heartbeat History of pain when walking History of stress test Hypertension Hypoxia Mass of lower inner quadrant of left breast Migraine headache Neutropenic fever Non-smoker Osteoarthritis Premature ventricular contraction Preoperative cardiovascular examination Shortness of breath on exertion Spinal stenosis Thrombocytopenia Tubulovillous adenoma of colon Walker as ambulation aid Wears dentures Wears glasses Home Medications omeprazole 20 mg capsule,delayed release 20 mg PO DAILY 05/01/18 [History Last Taken 05/04/22 04:00] clobetasol 0.05 % topical cream 1 applic topical BID PRN Skin Cleansing 03/04/21 [History Last Taken Unknown] multivitamin 1 tab PO DAILY 03/03/22 [History Last Taken Unknown] amlodipine 2.5 mg tablet 2.5 mg PO QHS bp 07/10/22 [History Last Taken Unknown] lisinopril 30 mg tablet 30 mg PO QHS bp 07/10/22 [History Last Taken Unknown] sertraline 25 mg tablet 25 mg PO DAILY 07/10/22 [History Last Taken Unknown] lidocaine HCl 2 % mucosal solution (Lidocaine Viscous) 10 ml PO Q3H PRN PRN sore mouth/oropharynx #100 mL 07/26/22 [Rx Last Taken Unknown] Allergy/AdvReac Type Severity Reaction Status Date / Time codeine Allergy Mild N/V AND Verified 07/23/22 14:49 MAKES HER FEEL REALLY SICK hydrocodone [From Vicodin] Allergy Mild N/V AND Verified 07/23/22 14:49 MAKES HER FEEL REALLY SICK Family History Mother Diabetes Kidney disease Father CVA (cerebral vascular accident) Hypertension Sister Thyroid disorder Surgical History History of breast lump/mass excision History of carpal tunnel surgery History of hip replacement Hx of colonoscopy Hx of esophagogastroduodenoscopy Hx of hysterectomy Hx of surgical amputation of finger Hx of tonsillectomy Hx of tubal ligation Previous back surgery S/P lumpectomy, left breast Status post reverse total arthroplasty of right shoulder Status post reverse total arthroplasty of right shoulder Social History household members: none Smoking Status: Never smoker second hand exposure: No alcohol intake: never substance use type: does not use caffeine: Yes ROS ROS ED ROS Narrative Fever. Chills. Urinary frequency. Review of Systems ROS Unobtainable: Denies due to encephalopathy Constitutional Constitutional ED: Reports chills and fever(s) Eyes Eyes: Denies blurry vision ENT ENT ED: Denies ear pain Cardiovascular Cardiovascular: Denies chest pain Respiratory/Chest Respiratory/Chest: Denies cough or dyspnea Gastrointestinal Gastrointestinal: Denies abdominal pain, constipation, diarrhea, melena, nausea or vomiting Genitourinary Genitourinary ED: Reports urinary frequency; Denies dysuria or hematuria Musculoskeletal Musculoskeletal: Denies arthralgias Integumentary Denies abscess Neurologic Neurologic: Denies headache(s) Psychiatric Psychiatric: Denies anxiety or depression Endocrine Endocrinology: Denies cold intolerance Hematologic/Lymphatic Hematologic/Lymphatic: Reports none Allergic/Immunologic Allergic/Immunologic ED: Denies mouth swelling or tongue swelling EXAM Physical Exam Narrative Exam Narrative: 66-year-old female vital signs are stable. Currently she is afebrile 98.1. States she was 100.8 at home. Pulse ox 90% on room air no hypoxia. No distress. She does not look septic or toxic. She does not look dehydrated. H EENT exam posterior pharynx unremarkable. Moist mucous membranes. Neck nontender. No lymphadenopathy. Lungs clear to auscultation. Heart tachycardic rate about 130 no murmur. Chest were nontender. Abdomen soft nontender. Moving all 4 extremities. Calves nontender without edema or cords. Neurologically she is awake alert no focal motor deficits. Const Vital Signs: 08/06/22 19:59 08/06/22 21:19 Temperature 98.1 F Temperature Source Temporal Pulse Rate 113 H Respiratory Rate 17 Respiratory Effort Normal Non-Labored Respiratory Pattern Normal Blood Pressure 156/95 H Blood Pressure Mean 115 Pulse Ox 98 Oxygen Delivery Method Room Air Positive well nourished, well developed and obese; Negative for cachectic, contractures or unkempt General Appearance ED: well developed and NAD; Negative for unkempt, cachectic, contractures, cyanotic, diaphoretic or pallor Nutritional Appearance: obese; Negative for cachectic HEENT Reports moist mucous membranes; Denies dry mucous membranes Negative for trauma or tenderness Mouth ED: No dry mucous membranes Mouth: No dry mucous membranes Eyes PERRL and EOMs intact bilaterally General Eye ED: Negative for pale conjunctiva or scleral icterus Neck no lymphadenopathy, supple and no JVD General: Negative for tenderness Lymph Lymphatic: Negative for other Chest Wall inspection of chest normal and palpation of chest normal Chest: Negative for other Resp normal respiratory effort Effort and Inspection: Negative for retractions Cardio regular rhythm, S2 normal heart sound and no murmurs; Negative for regular rate GI normal to inspection, nondistended, normoactive bowel sounds, non-tender, non- distended and no masses Inspection: Negative for abdominal distention Auscultation: normoactive bowel sounds Palpation: soft; Negative for tender, guarding or mass Back/Spine no CVA tenderness General Back: Negative for CVA tenderness Cervical Spine: Negative for cervical spine tenderness Thoracic Spine / Upper Back: Negative for thoracic spinal tenderness Lumbar Spine / Lower Back: Negative for lumbar spinal tenderness Extremity normal to inspection General Extremety ED: Negative for edema or tenderness General Extremity: Negative for edema Neuro oriented x3 Sensorium / Orientation: alert; Negative for orientation impaired, lethargic or stuporous Motor Exam: strength 5/5 throughout Psych mental status grossly normal Appearance: Negative for unkempt Attitude: No agitated Mood & Affect: Negative for depressed, anxious or tearful Skin no rashes or lesions noted and no wounds General Skin Exam: Negative for elasticity normal, jaundice or pallor Lesions: No lesion noted Rashes: No rashes noted Trauma: Negative for abrasion Wounds: Negative for wounds noted MDM MDM MDM Narrative Medical decision making narrative: 66-year-old female reported elevated temperature of 100.8 at home. History of breast cancer undergoing chemotherapy has had neutropenic fever and needed admission recently. She undergo neutropenic fever work-up. Currently she is afebrile. Multiple repeat exams patient is doing well. She will be started on IV antibiotics for neutropenic fever. IV Zosyn and IV vancomycin. I spoke to the oncologist on-call for her oncologist. I have the hospitalist on page. Patient is clinically doing well at 10:50 PM. She and I discussed her test results and plan for admission. Lab Data Attestation: I reviewed the patient's lab results. Lab results narrative: CBC shows a white count 0.7 H&H of 7.8 and 25. Platelets 99,000. Patient's pancytopenic PT/INR 14 and 1.1 PTT 32 electrolytes unremarkable gap of 8 BUN and creatinine 14 and 0.9. Liver enzymes normal. Urinalysis normal. No white or red cells no nitrates. Lactic acid is 1.0. Labs: Laboratory Results - last 24 hr 08/06/22 08/06/22 08/06/22 20:46 20:46 20:46 WBC 0.7 L* RBC 2.77 L Hgb 7.8 L Hct 25.0 L MCV 90.3 MCH 28.2 MCHC 31.2 L RDW Std Deviation 50.9 H RDW Coeff of Tj 16.4 H Plt Count 99 L MPV 10.0 Immature Gran % (Auto) 1.400 H Neut % (Auto) 24.6 L Lymph % (Auto) 37.0 [place] % (Auto) 35.6 H Eos % (Auto) 0.0 Baso % (Auto) 1.4 H Absolute Neuts (auto) 0.2 L Absolute Lymphs (auto) 0.27 L Nucleated RBC % 0 Diff Path Review May foll Platelet Estimate ADEQUATE Plt Morphology Comment LARGE Poikilocytosis 1+ Anisocytosis 1+ Ovalocytes 1+ PT 14.1 INR 1.1 APTT 32.1 Sodium 140 Potassium 3.9 Chloride 103 Carbon Dioxide 29.0 Anion Gap 8 BUN 14 Creatinine 0.79 Estim Creat Clear Calc 44.54 Est GFR (MDRD) Af Amer 93 Est GFR (MDRD) Non-Af 76 BUN/Creatinine Ratio 17.7 Glucose 128 H Lactic Acid Calcium 8.4 L Total Bilirubin 0.50 AST 13 L ALT 19 Alkaline Phosphatase 80 Total Protein 6.2 L Albumin 2.8 L Globulin 3.4 Albumin/Globulin Ratio 0.8 L Urine Color Urine Clarity Urine pH Ur Specific [place] Urine Protein Urine Glucose (UA) Urine Ketones Urine Occult Blood Urine Nitrite Urine Bilirubin Urine Urobilinogen Ur Leukocyte Esterase Urine RBC Urine WBC Ur Squamous Epith Cells Urine Bacteria Urine Mucus 08/06/22 08/06/22 20:46 20:46 WBC RBC Hgb Hct MCV MCH MCHC RDW Std Deviation RDW Coeff of Tj Plt Count MPV Immature Gran % (Auto) Neut % (Auto) Lymph % (Auto) [place] % (Auto) Eos % (Auto) Baso % (Auto) Absolute Neuts (auto) Absolute Lymphs (auto) Nucleated RBC % Diff Path Review Platelet Estimate Plt Morphology Comment Poikilocytosis Anisocytosis Ovalocytes PT INR APTT Sodium Potassium Chloride Carbon Dioxide Anion Gap BUN Creatinine Estim Creat Clear Calc Est GFR (MDRD) Af Amer Est GFR (MDRD) Non-Af BUN/Creatinine Ratio Glucose Lactic Acid 1.0 Calcium Total Bilirubin AST ALT Alkaline Phosphatase Total Protein Albumin Globulin Albumin/Globulin Ratio Urine Color Yellow Urine Clarity Clear Urine pH 8.0 Ur Specific Ro[place] 1.015 Urine Protein Negative Urine Glucose (UA) Normal Urine Ketones Negative Urine Occult Blood Negative Urine Nitrite Negative Urine Bilirubin Negative Urine Urobilinogen Normal Ur Leukocyte Esterase 100 H Urine RBC 0 SEEN Urine WBC 0-5 SEEN Ur Squamous Epith Cells 0-5 SEEN Urine Bacteria RARE Urine Mucus 0 SEEN Radiography Chest X-Ray - ED: 2 View, Normal, Heart, Lungs, Mediastinum, Bony Structures, No Acute Disease and Chronic Changes Diagnostic Testing: Clinical Impression(s) from Imaging Studies Chest X-Ray 08/06/22 21:35 IMPRESSION: Increasing right basilar consolidation which may be consistent with pneumonia Other findings are not appreciably changed since previous exam. Electronically Signed: Adriel Davalos MD at 21:46 EDT Reading Location ID and State: [facility]– [place][note 2] / [place] , Service support , Chest x-ray AP and lateral shows chronic changes. I do not see any obvious pneumonia. There is a density in the right basilar region but has been seen on prior films. Radiologist is calling this a possible pneumonia. Clinically and comparing films I would disagree. Discharge Plan Triage Chief Complaint: Fever ED Provider: Don Werner Dx/Rx/DC Orders Prescriptions: No Action clobetasol 0.05 % cream 1 applic TOPICAL BID PRN (Reason: Skin Cleansing) multivitamin Tablet 1 tab PO DAILY omeprazole 20 MG capsule,delayed release(DR/EC) 20 mg PO DAILY Label Comments: TK 1 C PO ONCE DAILY sertraline 25 mg tablet 25 mg PO DAILY Label Comments: Take 1 tablet by mouth once daily. amlodipine 2.5 mg Tablet 2.5 mg PO QHS lisinopril 30 mg Tablet 30 mg PO QHS lidocaine HCl [Lidocaine Viscous] 2 % Solution 10 ml PO Q3H PRN PRN (Reason: sore mouth/oropharynx) Qty: 100 0RF Primary Care Provider: Beverly Colunga NP Referrals: Beverly Colunga NP, [facility] [Primary Care Provider] -
[2022-08-06 21:00] LABS: Mucous, Urine 0 SEEN /hpf (<or=2+); Red Blood Cells-Urine 0 SEEN /hpf (0-5)
[2022-08-06 21:04] LABS: Absolute Lymphocyte Count 0.27 X10^3/uL (0.83-4.51); Absolute Neutrophil Count 0.2 X10^3/uL (2.0-7.7); Basophil# 0.01 X10^3/uL; Basophil% 1.4 % (0-1); Hemoglobin 7.8 g/dL (12.0-15.0); Lymphocyte # 0.27 X10^3/ul (0.83-4.51); Mean Corp Hgb Conc 31.2 g/dL (32-36); Mean Corpuscular Hgb 28.2 pg (27.0-32.0); Mean Corpuscular Volume 90.3 fL (81-99); Monocyte# 0.26 X10^3/uL; Monocyte% 35.6 % (0-10); NRBC Flagged by Analyzer 0 % (0-5); Neutrophil # 0.18 X10^3/uL (2.7-7.7); Neutrophil % 24.6 % (47-70); POSITIVE COUNT YES; POSITIVE DIFFERENTIAL YES; POSITIVE MORPHOLOGY YES; Platelet Count 99 K/mm3 (150-450); RBC Distribution Width CV 16.4 % (11.6-14.6); RBC Distribution Width SD 50.9 fl (35.1-43.9); Red Blood Count 2.77 M/mm3 (4.2-5.4)
[2022-08-06 21:10] LABS: Color, Urine Yellow (Yellow); Glucose, Dipstick Normal (Normal); Ketone-Dipstick Negative (Negative); Leukocyte Esterase-Dipstick 100 /ul (Negative); Nitrite-Dipstick Negative (Negative); Occult Blood-Urine Negative /ul (Negative); Protein-Dipstick Negative (Negative); Specific Gravity, Urine 1.015 (1.002-1.030); Urine Bilirubin Dipstick Negative (Negative); Urine Clarity Clear (Clear); Urine Urobilinogen Normal (Normal)
[2022-08-06 21:11] LABS: International Normalized Ratio 1.1; Prothrombin Time (Protime)PT. 14.1 SECONDS (11.7-14.9)
[2022-08-06 21:12] LABS: Partial Thromboplast Time 32.1 Seconds (24.1-36.2)
[2022-08-06 21:17] LABS: Differential Indicated SCAN CRITERIA MET; White Blood Count 0.7 K/mm3 (4.4-11.0)
[2022-08-06 21:22] LABS: ALB/GLOB Ratio 0.8 RATIO (0.9-2.4); AST(SGOT) 13 U/L (15-37); Alanine Aminotransfer ALT/SGPT 19 U/L (13-56); Albumin, Serum 2.8 g/dL (3.2-5.0); Alkaline Phosphatase 80 U/L (45-117); Anion Gap 8 (5-15); BUN 14 mg/dL (7-18); BUN/Creat Ratio 17.7 RATIO (10-20); Calcium,Total 8.4 mg/dL (8.5-10.1); Chloride 103 mmol/L (98-107); Creatinine, Serum 0.79 mg/dL (0.55-1.02); EST Glomerular Filtration Rate 76 mL/min (>60); Est Glom Filt Rate - Afr Amer 93 mL/min (>60); Estimated Creatinine Clearance 44.54 ml/min; Globulin 3.4 g/dL (2.2-4.2); Glucose 128 mg/dL (74-106); Potassium 3.9 mmol/L (3.5-5.1); Protein, Total 6.2 g/dL (6.4-8.2); Sodium Level 140 mmol/L (136-145)
[2022-08-06] MEDS: 0.9% Normal Saline 1,000 ML 999 ML IV (21:25)
[2022-08-06 21:33] LABS: Bacteria RARE /hpf (None Seen); Squamous Epithelial Cells - UA 0-5 SEEN /hpf (5-10); White Blood Cells 0-5 SEEN /hpf (0-5)
--- NOTE | 2022-08-06 21:35 | RAD_ITS ---
STUDY: X-RAY CHEST REASON FOR EXAM: Female, 66 years old. fever TECHNIQUE: PA and lateral COMPARISON: 07/31/2022 FINDINGS: There is less than optimal inspiratory effort and bibasilar atelectasis or infiltrates. Tiny left pleural effusion. Heart is mildly enlarged. Normal mediastinum and sona. Normal visualized pulmonary arteries. Normal visualized aortic arch and descending thoracic aorta. Mediport catheter noted on the left with tip in superior vena cava Normal visualized thoracic spine. Normal visualized ribs, clavicles, and left shoulder Right shoulder prosthesis is noted. Postsurgical changes status post scoliosis correction surgery of the spine There is no demonstrated abnormality of the visualized soft tissue structures of the upper abdomen. The right basilar consolidation has increased since prior exam RAD/Chest PA and Lateral IMPRESSION: Increasing right basilar consolidation which may be consistent with pneumonia Other findings are not appreciably changed since previous exam. Electronically Signed: Adriel Davalos MD at 21:46 EDT ,
[2022-08-06 22:05] LABS: Anisocytosis 1+; Ovalocyte 1+; Platelet Estimate ADEQUATE (ADEQ); Platelet Morphology LARGE; Poikilocytosis 1+
--- NOTE | 2022-08-06 22:52 | HP.PCM.HOS_ITS ---
[facility] - General General Date of Admission: 08/06/22 Date of Service: 08/06/22 Chief Complaint: Fever, Breast CA recurrence on chemotherapy, referred to ED per Dr. Jones. HPI Narrative The patient is a 66 y/o F w/ PMHx: Morbid Obesity, GERD, Chronic normocytic anemia secondary to ongoing chemotherapy/cancer requiring transfusions, Anxiety and Depression, HTN, HLD, Migraine headaches, Prior L Breast CA s/p lumpectomy and radiation 2015 with recent 05/04/22 diagnosis of recurrent Breast CA, R sided, noted to be triple negative w/ planned BL mastectomy 11/2022 w/ Dr. Alexis Nazario of note with recent admission 07/10/22 and also 07/23/22, both following chemotherapy initiation with neutropenic fevers placed on BSA w/ IV vanc and zosyn w/ administration of Granix and electrolyte supplementation with abx eventually DC with negative cultures who now re-presents to the [facility] ED on 08/06/22 with history of last chemotherapy 1 week ago Drake noted been feeling at her baseline however she started having fever up to 100.8 and chills even the day prior with reportedly increased urinary frequency but no associated dysuria nor any recent cough, dyspnea, abdominal pain prompting call to her oncologist who referred her to the ED. She notes having one additional treatments of this same regimen left. She also notes her oral sores have improved notably and she is able to tolerate normal texture diet now. Work-up in the ED included T98.1, heart rate 113, BP 156/95, respiratory rate 17, 98% on room air, CBC with WBC 0.7, hemoglobin 7.8, platelet 99 with increased immature granulocytes with neutropenia and lymphopenia, unremarkable coags, CMP with glucose 128, lactic acid 1.0 otherwise hepatic profile not marked appearing, urinalysis unr emarkable, chest x-ray with right basilar consolidation noted on prior films/consistent with her CA but radiology noted some concern for PNA but again known CA, rapid COVID antigen negative, blood culture x2 pending per ED, urine culture pending per ED. In the ED patient administered IV vanc and zosyn. [facility] Medical History Ambulates with cane Anemia Anemia Back pain Back pain Breast CA Breast cancer Breast cancer of upper-outer quadrant of left female breast Bronchitis Cardiology follow-up encounter Essential hypertension Gastric reflux GERD (gastroesophageal reflux disease) History of echocardiogram History of edema History of irregular heartbeat History of pain when walking History of stress test Hypertension Hypoxia Mass of lower inner quadrant of left breast Migraine headache Neutropenic fever Non-smoker Osteoarthritis Premature ventricular contraction Preoperative cardiovascular examination Shortness of breath on exertion Spinal stenosis Thrombocytopenia Tubulovillous adenoma of colon Walker as ambulation aid Wears dentures Wears glasses Home Medications omeprazole 20 mg capsule,delayed release 20 mg PO DAILY 05/01/18 [History Last Taken 05/04/22 04:00] clobetasol 0.05 % topical cream 1 applic topical BID PRN Skin Cleansing 03/04/21 [History Last Taken Unknown] multivitamin 1 tab PO DAILY 03/03/22 [History Last Taken Unknown] amlodipine 2.5 mg tablet 2.5 mg PO QHS bp 07/10/22 [History Last Taken Unknown] lisinopril 30 mg tablet 30 mg PO QHS bp 07/10/22 [History Last Taken Unknown] sertraline 25 mg tablet 25 mg PO DAILY 07/10/22 [History Last Taken Unknown] lidocaine HCl 2 % mucosal solution (Lidocaine Viscous) 10 ml PO Q3H PRN PRN sore mouth/oropharynx #100 mL 07/26/22 [Rx Last Taken Unknown] Allergy/AdvReac Type Severity Reaction Status Date / Time codeine Allergy Mild N/V AND Verified 07/23/22 14:49 MAKES HER FEEL REALLY SICK hydrocodone [From Vicodin] Allergy Mild N/V AND Verified 07/23/22 14:49 MAKES HER FEEL REALLY SICK Family History Mother Diabetes Kidney disease Father CVA (cerebral vascular accident) Hypertension Sister Thyroid disorder Surgical History History of breast lump/mass excision History of carpal tunnel surgery History of hip replacement Hx of colonoscopy Hx of esophagogastroduodenoscopy Hx of hysterectomy Hx of surgical amputation of finger Hx of tonsillectomy Hx of tubal ligation Previous back surgery S/P lumpectomy, left breast Status post reverse total arthroplasty of right shoulder Status post reverse total arthroplasty of right shoulder Social History household members: none Smoking Status: Never smoker second hand exposure: No alcohol intake: never substance use type: does not use caffeine: Yes ROS ROS Narrative Admission Review of Systems: CONSTITUTIONAL: No weight loss, + fever, chills, weakness or fatigue. HEENT: + Oral sores but improved, tolerating food now. Eyes: No visual loss, blurred vision, double vision or yellow sclerae. Ears, Nose, Throat: No hearing loss, sneezing, congestion, runny nose or sore throat. SKIN: + Mouth visible lip sores/oral sores notably improved, tolerating regular texture diet. CARDIOVASCULAR: No chest pain, chest pressure or chest discomfort, palpitations, edema, orthopnea, syncopal events. RESPIRATORY: No shortness of breath, cough or sputum, wheezing, hemoptysis. GASTROINTESTINAL: No anorexia, nausea, vomiting or diarrhea, abdominal pain, melena, BRBPR. GENITOURINARY: No dysuria, frequency, urgency or retention. NEUROLOGICAL: No headache, dizziness, syncope, paralysis, ataxia, numbness or tingling in the extremities, focal weakness, change in bowel or bladder control, seizure. MUSCULOSKELETAL: + muscle, back pain, joint pain or stiffness. HEMATOLOGIC: + anemia, bleeding or bruising. LYMPHATICS: No enlarged nodes. No history of splenectomy. PSYCHIATRIC: + history of depression or anxiety. ENDOCRINOLOGIC: No reports of sweating, cold or heat intolerance. No polyuria or polydipsia. ALLERGIES: No history of asthma, hives, eczema or rhinitis. Vital Signs Vital Signs Vital Signs: 08/06/22 19:59 08/06/22 21:19 Temperature 98.1 F Temperature Source Temporal Pulse Rate 113 H Respiratory Rate 17 Respiratory Effort Normal Non-Labored Respiratory Pattern Normal Blood Pressure 156/95 H Blood Pressure Mean 115 Pulse Ox 98 Oxygen Delivery Method Room Air Weight Weight: 244 lb 11.41 oz Body Mass Index (BMI) 43.3 Physical Exam Narrative Physical Examination: General: Awake, alert, oriented x 3 and cooperative, seated upright in the ED bed, fatigued but NAD, notes feeling well aside fever, chills episode, currently afebrile on exam. Skin: Normal color, normal turgor, no icterus, no cyanosis except notable bin- oral lip lesions. HEENT: AT/NC, EOMI, PERRLA, MMM, notably improved oropharynx oral and lip sores, no carotid bruits or JVD noted. Lungs: Diminished, greater bases, appropriate effort, no rales, ronchi or wheezing. Heart: Regular rate and rhythm; no gallop, rub audible. Abdomen: Soft, morbidly obese, NTTP, ND, normal BS, no HSM. Extremities: No cyanosis, no clubbing, mild pedal to distal jason edema similar to prior, not markedly pitting. Neurological: Patient awake, alert, oriented as noted, cognitive function appears baseline intact; pupils equally reactive to light and accommodation, cranial nerves grossly normal, moving all 4 extremities, no focal deficits, strength mildly globally decreased secondary to acute presentation. Psychiatric: Affect appears fatigued otherwise normal, no acute evidence of depressive or anxiety feelings. Results Lab / Micro Data Result Diagrams: 08/06/22 20:46 08/06/22 20:46 Labs: Laboratory Results - last 24 hr 08/06/22 20:46: WBC 0.7 L*, RBC 2.77 L, Hgb 7.8 L, Hct 25.0 L, MCV 90.3, MCH 28.2, MCHC 31.2 L, RDW Std Deviation 50.9 H, RDW Coeff of Tj 16.4 H, Plt Count 99 L, MPV 10.0, Immature Gran % (Auto) 1.400 H, Neut % (Auto) 24.6 L, Lymph % (Auto) 37.0, [place] % (Auto) 35.6 H, Eos % (Auto) 0.0, Baso % (Auto) 1.4 H, Absolute Neuts (auto) 0.2 L, Absolute Lymphs (auto) 0.27 L, Nucleated RBC % 0, Diff Path Review May foll, Platelet Estimate ADEQUATE, Plt Morphology Comment LARGE, Poikilocytosis 1+, Anisocytosis 1+, Ovalocytes 1+ 08/06/22 20:46: PT 14.1, INR 1.1, APTT 32.1 08/06/22 20:46: Sodium 140, Potassium 3.9, Chloride 103, Carbon Dioxide 29.0, Anion Gap 8, BUN 14, Creatinine 0.79, Estim Creat Clear Calc 44.54, Est GFR (MDRD) Af Amer 93, Est GFR (MDRD) Non-Af 76, BUN/Creatinine Ratio 17.7, Glucose 128 H, Calcium 8.4 L, Total Bilirubin 0.50, AST 13 L, ALT 19, Alkaline Phosphatase 80, Total Protein 6.2 L, Albumin 2.8 L, Globulin 3.4, Albumin/Globulin Ratio 0.8 L 08/06/22 20:46: Lactic Acid 1.0 08/06/22 20:46: Urine Color Yellow, Urine Clarity Clear, Urine pH 8.0, Ur Specif ic [place] 1.015, Urine Protein Negative, Urine Glucose (UA) Normal, Urine Ketones Negative, Urine Occult Blood Negative, Urine Nitrite Negative, Urine Bilirubin Negative, Urine Urobilinogen Normal, Ur Leukocyte Esterase 100 H, Urine RBC 0 SEEN, Urine WBC 0-5 SEEN, Ur Squamous Epith Cells 0-5 SEEN, Urine Bacteria RARE, Urine Mucus 0 SEEN Micro: Microbiology 08/06/22 20:46 Nasal Secretion SARS-CoV-2 Antigen (Rapid) - Final Radiology Impression Chest X-Ray 08/06/22 21:35 IMPRESSION: Increasing right basilar consolidation which may be consistent with pneumonia Other findings are not appreciably changed since previous exam. Electronically Signed: Adriel Davalos MD at 21:46 EDT , Assessment & Plan Assessment/Plan (1) Neutropenic fever: PLAN: Plan The patient is a 66 y/o F w/ PMHx: Morbid Obesity, GERD, Chronic normocytic anemia secondary to ongoing chemotherapy/cancer requiring transfusions, Anxiety and Depression, HTN, HLD, Migraine headaches, Prior L Breast CA s/p lumpectomy and radiation 2015 with recent 05/04/22 diagnosis of recurrent Breast CA, R sided, noted to be triple negative w/ planned BL mastectomy 11/2022 w/ Dr. Alexis Nazario of note with recent admission 07/10/22 and also 07/23/22, both following chemotherapy initiation with neutropenic fevers placed on BSA w/ IV vanc and zosyn w/ administration of Granix and electrolyte supplementation with abx eventually DC with negative cultures who now re-presents to the [facility] ED on 08/06/22 with history of last chemotherapy 1 week ago Drake noted been feeling at her baseline however she started having fever up to 100.8 and chills even the day prior with reportedly increased urinary frequency but no associated dysuria. #1.? Neutropenic fever with Recent R Triple Negative Breast CA diagnosis on chemotherapy with pancytopenia, similar recent presentation x 2 (felt likely chemotherapy related prior): Admission CBC with CBC with WBC 0.7, hemoglobin 7.8 (baseline 7-8, stable), platelet 99 (baseline ranging 50-most recently 07/26/22 128) with increased immature granulocytes with neutropenia and lymphopenia, CXR w/ similar appearing R basilar consolidation compared to prior consistent with her CA; however, radiology reading ? PNA but again known underlying CA with no pulmonary complaints, UA w/ no obvious evidence of any infection. Bld cx and UCx pending per ED. Will admit to medical surgical floor, maintain on neutropenic precautions, obtain mag and phos levels, maintain I&Os, treat with IV vancomycin and zosyn pending cultures. PRN tylenol, anti-emetics, pain regimen. Procalcitonin pending. Respiratory viral panel requested. Granix administration ordered. #2.? Anxiety and depression: We will continue patient home sertraline regimen. #3.? Hypertension: Continue home regimen including lisinopril, amlodipine with hold parameters, PRN hydralazine. #4.? Hyperlipidemia: Not on any regimen, defer to outpatient. #5.? GERD: We will continue patient home PPI. #6.? Morbid Obesity: Weight loss and lifestyle changes encouraged. #7.? DVT prophylaxis: SCDs, defer chemoprophylaxis given acute presentation with pancytopenia with ongoing anemia, thrombocytopenia as noted. #8.? CODE status: Full Code status. Charges/Coding Visit Charges OBSV E&M: 67642 Initial observation care L3
[2022-08-06 23:28] VITALS: BP 139/67; PULSE 101; RESP 18; TEMP 36.9; O2SAT 95
[2022-08-06 23:58] VITALS: BMI 42.8
[2022-08-06 23:58] LABS: Magnesium 1.7 mg/dL (1.6-2.6); Phosphorus 2.1 mg/dL (2.5-4.9)
[2022-08-07] VITALS (10 sets, daily range): BP systolic 112–144; BP diastolic 62–90; PULSE 92–108; RESP 14–16; TEMP 37.1–37.8; O2SAT 93–97
[2022-08-07] MEDS: Lisinopril 10 MG Tablet 30 MG PO ×2 (01:59→21:35)
[2022-08-07] MEDS: amLODIPine 2.5 MG Tablet PO ×2 (02:00→21:36)
[2022-08-07] MEDS: TBO-FILGRASTIM 480 MCG/0.8 ML ML SC (02:00)
--- NOTE | 2022-08-07 02:09 | PCM.RX.CS ---
Consult Pharmacy has been consulted to manage selected antiobiotic: Vancomycin Type of Consult: New start Labs: Sodium 140 mmol/L (136-145) 08/06/22 20:46 Potassium 3.9 mmol/L (3.5-5.1) 08/06/22 20:46 Chloride 103 mmol/L (98-107) 08/06/22 20:46 Carbon Dioxide 29.0 mmol/L (21.0-32.0) 08/06/22 20:46 Anion Gap 8 (5-15) 08/06/22 20:46 BUN 14 mg/dL (7-18) 08/06/22 20:46 Creatinine 0.79 mg/dL (0.55-1.02) 08/06/22 20:46 Est GFR (MDRD) Af Amer 93 mL/min (>60) 08/06/22 20:46 Est GFR (MDRD) Non-Af 76 mL/min (>60) 08/06/22 20:46 BUN/Creatinine Ratio 17.7 RATIO (10-20) 08/06/22 20:46 Glucose 128 mg/dL (74-106) H 08/06/22 20:46 Microbiology: Microbiology 08/06/22 20:46 Nasal Secretion SARS-CoV-2 Antigen (Rapid) - Final Goal Trough: 15-20 mcg/mL Pharmacy Plan for Drug Dosing: Pharmacy Service will continue to monitor and adjust dosing as required. Medications Vancomycin HCl 2,000 mg/ (Sodium Chloride) 540 mls @ 250 mls/hr IV Q12H STAN Discontinued Medications Vancomycin HCl 2,000 mg/ (Sodium Chloride) 540 mls @ 250 mls/hr IV X1 ONE Stop: 08/07/22 01:14 Last Admin: 08/07/22 00:19 Dose: 250 mls/hr Follow-Up Labs: Trough Vancomycin Labs to be done on [date and time ordered]: 08/08 @ 1139
[2022-08-07] MEDS: Loratadine 10 MG Tablet PO ×2 (02:12→11:06)
[2022-08-07] MEDS: Nystatin Powder 15gm Bottle 1 APPLIC TOPICAL ×4 (03:45→21:31)
[2022-08-07] MEDS: 0.9% Normal Saline 1,000 ML 100 ML IV (03:46)
[2022-08-07] MEDS: BMX LIQUID 180 ML 10 ML PO ×3 (05:50→18:13)
[2022-08-07 05:57] LABS: Absolute Lymphocyte Count 0.19 X10^3/uL (0.83-4.51); Absolute Neutrophil Count 0.6 X10^3/uL (2.0-7.7); Basophil# 0.02 X10^3/uL; Basophil% 1.7 % (0-1); Hematocrit 21.8 % (37-47); Hemoglobin 7.1 g/dL (12.0-15.0); Lymphocyte # 0.19 X10^3/ul (0.83-4.51); Lymphocyte % 16.5 % (19-41); Mean Corp Hgb Conc 32.6 g/dL (32-36); Mean Corpuscular Hgb 29.1 pg (27.0-32.0); Mean Corpuscular Volume 89.3 fL (81-99); Mean Platelet Vol. 9.4 fl (6.2-12.0); Monocyte# 0.27 X10^3/uL; Monocyte% 23.5 % (0-10); NRBC Flagged by Analyzer 0 % (0-5); Neutrophil # 0.62 X10^3/uL (2.7-7.7); POSITIVE COUNT YES; POSITIVE DIFFERENTIAL YES; POSITIVE MORPHOLOGY YES; Platelet Count 82 K/mm3 (150-450); RBC Distribution Width CV 16.2 % (11.6-14.6); RBC Distribution Width SD 49.1 fl (35.1-43.9); Red Blood Count 2.44 M/mm3 (4.2-5.4)
[2022-08-07 06:25] LABS: Differential Indicated SCAN CRITERIA MET
[2022-08-07 06:26] LABS: White Blood Count 1.2 K/mm3 (4.4-11.0)
[2022-08-07 06:29] LABS: ALB/GLOB Ratio 0.8 RATIO (0.9-2.4); AST(SGOT) 13 U/L (15-37); Alanine Aminotransfer ALT/SGPT 16 U/L (13-56); Albumin, Serum 2.3 g/dL (3.2-5.0); Alkaline Phosphatase 68 U/L (45-117); Anion Gap 7 (5-15); BUN 10 mg/dL (7-18); BUN/Creat Ratio 15.1 RATIO (10-20); Calcium,Total 7.9 mg/dL (8.5-10.1); Chloride 105 mmol/L (98-107); Creatinine, Serum 0.66 mg/dL (0.55-1.02); EST Glomerular Filtration Rate 94 mL/min (>60); Est Glom Filt Rate - Afr Amer 114 mL/min (>60); Estimated Creatinine Clearance 44.54 ml/min; Glucose 113 mg/dL (74-106); Potassium 3.5 mmol/L (3.5-5.1); Protein, Total 5.3 g/dL (6.4-8.2); Sodium Level 139 mmol/L (136-145)
[2022-08-07 06:52] LABS: Anisocytosis 1+; Differential Comment SCANNED; Hypochromasia 1+; Macrocytosis RARE; Microcytosis RARE; Platelet Estimate MOD DEC (ADEQ)
--- NOTE | 2022-08-07 10:47 | PN.HOSP_ITS ---
Subjective Subjective Patient seen and examined. She complained of some chils, but denied any fever, cough, chest pain, palpitations, dizziness, nausea, vomiting or diarrhea. Review of systems is otherwise negative. Wbc is up to 1.2 and hemoglobin is down to 7.1 today. Platelets are 82. Objective Data Objective Data Vital Signs: Vital Signs Temp Pulse Resp BP Pulse Ox O2 Del Method 99.4 F H 100 16 144/73 H 93 Room Air 08/07/22 04:30 08/07/22 04:30 08/07/22 04:30 08/07/22 04:30 08/07/22 07:11 08/07/22 07:11 Oxygen Delivery Method Room Air Weight: 241 lb 13.553 oz Body Mass Index (BMI) 42.8 Intake & Output: Intake and Output for Last 24 Hours 08/05/22 08/06/22 08/07/22 23:59 23:59 23:59 Intake Total 1000 / 1050 591.25 / 591.25 Balance 1000 / 1050 591.25 / 591.25 Lab / Micro Data Result Diagrams: 08/07/22 05:33 08/07/22 05:33 Labs: Laboratory Results - last 24 hr 08/06/22 20:46: WBC 0.7 L*, RBC 2.77 L, Hgb 7.8 L, Hct 25.0 L, MCV 90.3, MCH 28.2, MCHC 31.2 L, RDW Std Deviation 50.9 H, RDW Coeff of Tj 16.4 H, Plt Count 99 L, MPV 10.0, Immature Gran % (Auto) 1.400 H, Neut % (Auto) 24.6 L, Lymph % (Auto) 37.0, [place] % (Auto) 35.6 H, Eos % (Auto) 0.0, Baso % (Auto) 1.4 H, Absolute Neuts (auto) 0.2 L, Absolute Lymphs (auto) 0.27 L, Nucleated RBC % 0, Diff Path Review May , Platelet Estimate ADEQUATE, Plt Morphology Comment LARGE, Poikilocytosis 1+, Anisocytosis 1+, Ovalocytes 1+ 08/06/22 20:46: PT 14.1, INR 1.1, APTT 32.1 08/06/22 20:46: Sodium 140, Potassium 3.9, Chloride 103, Carbon Dioxide 29.0, Anion Gap 8, BUN 14, Creatinine 0.79, Estim Creat Clear Calc 44.54, Est GFR (MDRD) Af Amer 93, Est GFR (MDRD) Non-Af 76, BUN/Creatinine Ratio 17.7, Glucose 128 H, Calcium 8.4 L, Total Bilirubin 0.50, AST 13 L, ALT 19, Alkaline Phosphatase 80, Total Protein 6.2 L, Albumin 2.8 L, Globulin 3.4, Albumin/Globulin Ratio 0.8 L 08/06/22 20:46: Lactic Acid 1.0 08/06/22 20:46: Urine Color Yellow, Urine Clarity Clear, Urine pH 8.0, Ur Specific [place] 1.015, Urine Protein Negative, Urine Glucose (UA) Normal, Urine Ketones Negative, Urine Occult Blood Negative, Urine Nitrite Negative, Urine Bilirubin Negative, Urine Urobilinogen Normal, Ur Leukocyte Esterase 100 H, Urine RBC 0 SEEN, Urine WBC 0-5 SEEN, Ur Squamous Epith Cells 0-5 SEEN, Urine Bacteria RARE, Urine Mucus 0 SEEN 08/06/22 20:46: Phosphorus 2.1 L, Magnesium 1.7 08/06/22 23:42: Procalcitonin 0.10 H 08/07/22 05:33: WBC 1.2 L*, RBC 2.44 L, Hgb 7.1 L, Hct 21.8 L, MCV 89.3, MCH 29.1, MCHC 32.6, RDW Std Deviation 49.1 H, RDW Coeff of Tj 16.2 H, Plt Count 82 L, MPV 9.4, Immature Gran % (Auto) 4.300 H, Neut % (Auto) 54.0, Lymph % (Auto) 16.5 L, [place] % (Auto) 23.5 H, Eos % (Auto) 0.0, Baso % (Auto) 1.7 H, Absolute Neuts (auto) 0.6 L, Absolute Lymphs (auto) 0.19 L, Nucleated RBC % 0, Differential Comment SCANNED, Diff Path Review May foll, Platelet Estimate MOD DEC, Hypochromasia 1+, Anisocytosis 1+, Microcytosis RARE, Macrocytosis RARE 08/07/22 05:33: Sodium 139, Potassium 3.5, Chloride 105, Carbon Dioxide 27.0, Anion Gap 7, BUN 10, Creatinine 0.66, Estim Creat Clear Calc 44.54, Est GFR (MDRD) Af Amer 114, Est GFR (MDRD) Non-Af 94, BUN/Creatinine Ratio 15.1, Glucose 113 H, Calcium 7.9 L, Total Bilirubin 0.50, AST 13 L, ALT 16, Alkaline Phosphatase 68, Total Protein 5.3 L, Albumin 2.3 L, Globulin 3.0, Albumin/Globu thea Ratio 0.8 L 08/07/22 08:30: Blood Type AB POSITIVE, Antibody Screen NEGATIVE, Crossmatch See Detail Micro: Microbiology 08/07/22 03:08 Interface Orders Respiratory Panel (PCR) - Final Rhinovirus 08/06/22 20:46 Urine, Clean Catch Legionella Antigen - Final 08/06/22 20:46 Urine, Clean Catch Streptococcus pneumoniae Antigen (M - Final 08/06/22 20:46 Nasal Secretion SARS-CoV-2 Antigen (Rapid) - Final Radiography Diagnostic Testing: Radiology Impression Chest X-Ray 08/06/22 21:35 IMPRESSION: Increasing right basilar consolidation which may be consistent with pneumonia Other findings are not appreciably changed since previous exam. Electronically Signed: Adriel Davalos MD at 21:46 EDT , Physical Exam Const alert, oriented x3 and no apparent distress HEENT head/scalp atraumatic, moist oral mucous membranes and oropharynx normal Head and Scalp: normocephalic Mouth: oral and palatal mucosa normal Neck no lymphadenopathy and supple Resp normal respiratory effort, no retractions, no use of accessory muscles and clear to auscultation bilaterally Cardio regular rate, regular rhythm, S1 normal heart sound, S2 normal heart sound and no murmurs GI normal to inspection, nondistended, normoactive bowel sounds, soft to palpation and non-tender Extremity normal to inspection, full ROM and no clubbing, cyanosis or edema Skin Skin Narrative: chemo port in situ Neuro oriented x3, CN's II-XII intact bilaterally, moves all extremities and no focal motor deficits Sensorium / Orientation: awake and alert Motor Exam: strength 5/5 throughout Psych affect normal Assessment & Plan Assessment/Plan (1) Neutropenic fever: (2) Anemia: PLAN: Plan #Neutropenic fever * wbc is up to 1.2 today, but Hb has dropped to 7.1 from 7.8 * Urinalysis showed no evidence of UTI * CXR showed increasing right basilar consolidation which may be consistent with pneumonia * on IV vancomycin and zosyn * blood cultures pending * was given one dose of granix * #Acute on chronic anemia * Hb is down to 7.1 from 7.8 * likely due to sequelae of chemotherapy * transfuse with one unit of PRBC * #Pancytopenia * in setting of recurrent triple negative breast cancer * platelts are down to 82 today, and wbc is up to 1.2. hb is down to 7.1 * monitor platelets. Being transfused with one unit of PRBCs * will monitor * given one dose of granix #Hypertension: on lisinopril and amlodipine #GERD: on PPI #Anxiety and depression: on sertraline DVT prophylaxis: SCDs Charges/Coding Visit Charges Inpatient E&M: 09592 Subs Hosp L3
[2022-08-07] MEDS: Sertraline 50 MG Tablet 25 MG PO (11:06)
[2022-08-07] MEDS: Pantoprazole Sodium 20 MG Tablet PO (11:06)
[2022-08-07] MEDS: Multivitamins,Therapeutic Tablet 1 TABLET PO (11:06)
[2022-08-07] MEDS: Menthol/Lanolin/Calamine/Znox 113 GM Tube 1 APPLIC TOPICAL ×4 (11:09→21:31)
[2022-08-07] MEDS: 0.9% Saline Lock 10 ML Syringe IV (12:45)
[2022-08-07] MEDS: Senna/Docusate Sodium 1 Tablet 2 TABLET PO (12:49)
[2022-08-08 03:20] VITALS: BP 148/84; PULSE 99; RESP 16; TEMP 37; O2SAT 96
[2022-08-08] MEDS: BMX LIQUID 180 ML 10 ML PO ×2 (03:31→20:42)
[2022-08-08] MEDS: Nystatin Powder 15gm Bottle 1 APPLIC TOPICAL ×3 (05:21→22:35)
[2022-08-08 07:25] VITALS: O2SAT 95
[2022-08-08 08:00] VITALS: BP 139/76; PULSE 97; RESP 18; TEMP 36.8; O2SAT 95
[2022-08-08] MEDS: Sertraline 50 MG Tablet 25 MG PO (08:07)
[2022-08-08] MEDS: Loratadine 10 MG Tablet PO (08:07)
[2022-08-08] MEDS: Multivitamins,Therapeutic Tablet 1 TABLET PO (08:07)
[2022-08-08] MEDS: Pantoprazole Sodium 20 MG Tablet PO (08:08)
[2022-08-08] MEDS: Menthol/Lanolin/Calamine/Znox 113 GM Tube 1 APPLIC TOPICAL ×4 (08:09→22:35)
[2022-08-08 12:27] LABS: Pathologist Review Reviewed
[2022-08-08 12:28] LABS: Pathologist Review Reviewed
[2022-08-08 14:20] VITALS: BP 156/85; PULSE 98; RESP 18; TEMP 36.6; O2SAT 97
--- NOTE | 2022-08-08 14:56 | CASEMGMT ---
EMMIE DANIELS Readmission Note Previous Admission:? 07/24/2022-07/26/2022? Diagnosis:? neutropenic fever with recent chemo DC Disposition: Home with [facility] Current Admission? Current Diagnosis: neutropenic fever Pt presented to ER from home with elevated temp. Pt had chemo 1 wk ago on Monday. Pt white count was 0.7 on admission. Pt has hx of triple negative breast cancer with a bilat mastectomy planned in Nov 2022. Pt receiving IV atb. EMMIE DANIELS in to pt room, pt sitting up in chair. Pt states she comes to the hospital with fever with each chemo. Pt denies any homegoing needs. Pt is currently set up with [facility]. Discussed with pt palliative care, she declines this. Pt does meet criteria per screening tool. Provided pt with [place] information as well as [facility]. Pt declines further needs. DC Plan: Home with [facility]
--- NOTE | 2022-08-08 16:31 | PCM.RX.CS ---
Consult Pharmacy has been consulted to manage selected antiobiotic: Vancomycin Type of Consult: Follow-up Labs: Sodium 139 mmol/L (136-145) 08/07/22 05:33 Potassium 3.5 mmol/L (3.5-5.1) 08/07/22 05:33 Chloride 105 mmol/L (98-107) 08/07/22 05:33 Carbon Dioxide 27.0 mmol/L (21.0-32.0) 08/07/22 05:33 Anion Gap 7 (5-15) 08/07/22 05:33 BUN 10 mg/dL (7-18) 08/07/22 05:33 Creatinine 0.66 mg/dL (0.55-1.02) 08/07/22 05:33 Est GFR (MDRD) Af Amer 114 mL/min (>60) 08/07/22 05:33 Est GFR (MDRD) Non-Af 94 mL/min (>60) 08/07/22 05:33 BUN/Creatinine Ratio 15.1 RATIO (10-20) 08/07/22 05:33 Glucose 113 mg/dL (74-106) H 08/07/22 05:33 Vancomycin Trough 26.0 ug/mL (5.0-15.0) H 08/08/22 11:40 Microbiology: Microbiology 08/06/22 20:46 Urine, Clean Catch Urine Culture - Final Mixed Gram Positive Organisms 08/07/22 03:08 Interface Orders Respiratory Panel (PCR) - Final Rhinovirus 08/06/22 20:46 Urine, Clean Catch Legionella Antigen - Final 08/06/22 20:46 Urine, Clean Catch Streptococcus pneumoniae Antigen (M - Final 08/06/22 20:46 Nasal Secretion SARS-CoV-2 Antigen (Rapid) - Final Goal Trough: 15-20 mcg/mL Pharmacy Plan for Drug Dosing: VANCOMYCIN LEVEL RECEIVED Current Vancomycin Dose: 2000mg q12h (00,12) Number of Doses Received: Vancomycin Level: 26 Hours Since Last Dose: -1 minute Renal Function: SrCr 0.66 Renal Function Trend: Lab/Micro: Vancomycin Plan/Comments: dose was hung just prior to lab draw. Recommend holding next dose of Vancomycin and checking another level to determine trough Pending Level: 08/08/22 at 2330 Pharmacy Service will continue to monitor and adjust dosing as required. Follow-Up Labs: Trough Vancomycin - 08/08/22 at 2330
--- NOTE | 2022-08-08 17:39 | PN.HOSP_ITS ---
Subjective Subjective Patient was seen and examined today, her total white blood cell count today was 600, she remains afebrile, I talked briefly with her oncologist today about obtaining an echocardiogram-patient was due to have 1 done today but the oncologist states that the patient can have the echocardiogram as an outpatient after she is released from the hospital. Objective Data Objective Data Vital Signs: Vital Signs Temp Pulse Resp BP Pulse Ox O2 Del Method 97.8 F 98 18 156/85 H 97 Room Air 08/08/22 14:20 08/08/22 14:20 08/08/22 14:20 08/08/22 14:20 08/08/22 14:20 08/08/22 14:20 Oxygen Delivery Method Room Air Weight: 109.7 kg Body Mass Index (BMI) 42.8 Intake & Output: Intake and Output for Last 24 Hours 08/06/22 08/07/22 08/08/22 23:59 23:59 23:59 Intake Total 1000 / 1050 3281.25 / 3781.25 2080.75 / 2080.75 Balance 1000 / 1050 3281.25 / 3781.25 2080.75 / 2080.75 Lab / Micro Data Result Diagrams: 08/07/22 05:33 08/07/22 05:33 Labs: Laboratory Results - last 24 hr 08/06/22 20:46: Diff Path Review Reviewed 08/07/22 05:33: Diff Path Review Reviewed 08/08/22 11:40: Vancomycin Trough 26.0 H Micro: Microbiology 08/06/22 20:46 Urine, Clean Catch Urine Culture - Final Mixed Gram Positive Organisms 08/07/22 03:08 Interface Orders Respiratory Panel (PCR) - Final Rhinovirus 08/06/22 20:46 Urine, Clean Catch Legionella Antigen - Final 08/06/22 20:46 Urine, Clean Catch Streptococcus pneumoniae Antigen (M - Lakisha l 08/06/22 20:46 Nasal Secretion SARS-CoV-2 Antigen (Rapid) - Final Physical Exam Const alert, oriented x3 and no apparent distress Constitutional Narrative: Patient is morbidly obese General Appearance: cooperative, well kempt and well developed Orientation / Consciousness: awake, oriented to person, oriented to place and oriented to time HEENT normocephalic and moist oral mucous membranes Eyes PERRL, EOMs intact bilaterally and conjunctivae normal Neck supple, no JVD, thyroid normal and no carotid bruits General: trachea midline Resp normal respiratory effort, no retractions, no use of accessory muscles and clear to auscultation bilaterally Auscultation: Negative for rales, rhonchi or wheezes Cardio regular rate, regular rhythm, S1 normal heart sound, S2 normal heart sound, no murmurs, no rub and no gallops GI normal to inspection, nondistended, normoactive bowel sounds, soft to palpation, non-tender and non-distended Extremity no clubbing, cyanosis or edema Skin no rashes or lesions noted General Skin Exam: no breakdown Neuro oriented x3, CN's II-XII intact bilaterally, no focal motor deficits and no sensory deficits noted Sensorium / Orientation: awake and alert Speech: speech normal Psych affect normal Assessment & Plan Assessment/Plan (1) Neutropenic fever: PLAN: Plan 1. Neutropenic fever-patient's blood cultures pending at this time, patient was positive for rhinovirus yesterday, continue vancomycin and Zosyn at this time #2 pancytopenia-secondary to chemotherapy-patient's white blood cell count is improving at this time, continue to monitor CBC #3 breast cancer-complicates care, management, recovery, and prognosis #4 essential hypertension-patient is currently on lisinopril and amlodipine #5 GERD-patient is on omeprazole #6 chronic depression-patient is currently on Zoloft Charges/Coding Visit Charges Inpatient E&M: 93874 Subs Hosp L2
[2022-08-08 20:29] VITALS: BP 134/80; PULSE 99; RESP 18; TEMP 37.1; O2SAT 95
[2022-08-08] MEDS: Lisinopril 10 MG Tablet 30 MG PO (22:35)
[2022-08-08] MEDS: amLODIPine 2.5 MG Tablet PO (22:35)
[2022-08-08 23:50] LABS: Vancomycin, Trough Level 35.4 ug/mL (5.0-15.0)
--- NOTE | 2022-08-09 00:59 | PCM.RX.CS ---
Consult Pharmacy has been consulted to manage selected antiobiotic: Vancomycin Type of Consult: Follow-up Labs: Sodium 139 mmol/L (136-145) 08/07/22 05:33 Potassium 3.5 mmol/L (3.5-5.1) 08/07/22 05:33 Chloride 105 mmol/L (98-107) 08/07/22 05:33 Carbon Dioxide 27.0 mmol/L (21.0-32.0) 08/07/22 05:33 Anion Gap 7 (5-15) 08/07/22 05:33 BUN 10 mg/dL (7-18) 08/07/22 05:33 Creatinine 0.66 mg/dL (0.55-1.02) 08/07/22 05:33 Est GFR (MDRD) Af Amer 114 mL/min (>60) 08/07/22 05:33 Est GFR (MDRD) Non-Af 94 mL/min (>60) 08/07/22 05:33 BUN/Creatinine Ratio 15.1 RATIO (10-20) 08/07/22 05:33 Glucose 113 mg/dL (74-106) H 08/07/22 05:33 Vancomycin Trough 35.4 ug/mL (5.0-15.0) H 08/08/22 23:10 Microbiology: Microbiology 08/06/22 20:46 Urine, Clean Catch Urine Culture - Final Mixed Gram Positive Organisms 08/07/22 03:08 Interface Orders Respiratory Panel (PCR) - Final Rhinovirus 08/06/22 20:46 Urine, Clean Catch Legionella Antigen - Final 08/06/22 20:46 Urine, Clean Catch Streptococcus pneumoniae Antigen (M - Final 08/06/22 20:46 Nasal Secretion SARS-CoV-2 Antigen (Rapid) - Final Goal Trough: 15-20 mcg/mL Pharmacy Plan for Drug Dosing: Pharmacy Service will continue to monitor and adjust dosing as required. Follow-Up Labs: Trough Vancomycin Labs to be done on [date and time ordered]: RANDOM LEVEL 35.4. DOSE ALREADY HELD, RAW RANDOM TROUGH IN 18 HRS
[2022-08-09 02:38] VITALS: BP 157/76; PULSE 95; RESP 18; TEMP 37; O2SAT 96
[2022-08-09] MEDS: Nystatin Powder 15gm Bottle 1 APPLIC TOPICAL (06:15)
[2022-08-09 08:50] VITALS: BP 139/77; PULSE 107; RESP 18; TEMP 36.6; O2SAT 94
[2022-08-09] MEDS: Loratadine 10 MG Tablet PO (09:00)
[2022-08-09] MEDS: Pantoprazole Sodium 20 MG Tablet PO (09:00)
[2022-08-09] MEDS: Multivitamins,Therapeutic Tablet 1 TABLET PO (09:00)
[2022-08-09] MEDS: Sertraline 50 MG Tablet 25 MG PO (09:00)
[2022-08-09] MEDS: Menthol/Lanolin/Calamine/Znox 113 GM Tube 1 APPLIC TOPICAL (09:01)
[2022-08-09 09:21] LABS: Hematocrit 28.3 % (37-47); Hemoglobin 9.2 g/dL (12.0-15.0); Mean Corp Hgb Conc 32.5 g/dL (32-36); Mean Corpuscular Hgb 28.7 pg (27.0-32.0); Mean Corpuscular Volume 88.2 fL (81-99); Mean Platelet Vol. 10.5 fl (6.2-12.0); POSITIVE COUNT YES; POSITIVE DIFFERENTIAL YES; POSITIVE MORPHOLOGY YES; Platelet Count 118 K/mm3 (150-450); RBC Distribution Width CV 17.1 % (11.6-14.6); RBC Distribution Width SD 50.3 fl (35.1-43.9); Red Blood Count 3.21 M/mm3 (4.2-5.4); White Blood Count 6.9 K/mm3 (4.4-11.0)
[2022-08-09 09:23] LABS: Differential Indicated MANUAL DIFF
[2022-08-09 09:55] LABS: Metamyelocyte 4 % (0-1); Neutrophil-Band 3 % (0-5); Neutrophil-Segmented 71 % (47-70); Total Cells Counted 100 (MANUAL DIFF)
[2022-08-09 09:56] LABS: Anisocytosis 2+; Lymphocyte 12 % (19-41); Monocyte 6 % (0-10); Myelocyte 3 % (0-0); Platelet Estimate SLT (ADEQ); Promyelocyte 1 % (0-0); Red Cell Morphology N CYTIC NORMAL (NORM C&C)
[2022-08-09 09:57] LABS: Absolute Lymphocyte Count 0.82 X10^3/uL (0.83-4.51); Absolute Neutrophil Count 5.1 X10^3/uL (2.0-7.7); Lymphocyte # 0.82 X10^3/ul (0.83-4.51); Neutrophil # 5.11 X10^3/uL (2.7-7.7)
--- NOTE | 2022-08-09 11:55 | CASEMGMT ---
Social Work SW met with pt to offer diagnosis related support. Pt upset regarding diet and perseverating on this. SW spoke to technical inspector and requested pts concerns be addressed. Pt calmer after this was complete. Pt stating she has good support from significant other, family and friends. Pt expressing she has come to terms with diagnosis and treatment. SW spoke with pt regarding advance directives and pt confirms she does not have these documents in place. SW explained legal order of decision makers and that pt's significant order would not be a medical decision maker. Pt states that she would prefer that Tato, her significant other, would be her HCPOA and not her children. SW assisted pt in completing documents. Pt completed a living will and HCPOA naming her significant other Tato Samson. Copy placed on chart and original given to pt. KORINA Clement
--- NOTE | 2022-08-09 13:17 | DCINST_ITS ---
Discharge Instructions Diet Discharge Diet: No restrictions Activity Discharge Activity: Return to Normal Activity Weight Bearing Status: Full weight bearing Follow Up Care Test Results: Test results from this visit will be discussed in further detail at your follow- up appointment, if applicable. Discharge Plan Admission Admit Date/Time: 08/07/22 13:16 Primary Reason for Your Visit: neutropenic fever Attending Provider: Barrett Bailey Primary Care Provider: Beverly Colunga NP Consulting Providers: Marixa Knott ; Denia Mcnamara Discharge Orders/Prescriptions Prescriptions: Continued clobetasol 0.05 % cream 1 applic TOPICAL BID PRN (Reason: Skin Cleansing) multivitamin Tablet 1 tab PO DAILY omeprazole 20 MG capsule,delayed release(DR/EC) 20 mg PO DAILY Label Comments: TK 1 C PO ONCE DAILY sertraline 25 mg tablet 25 mg PO DAILY Label Comments: Take 1 tablet by mouth once daily. amlodipine 2.5 mg Tablet 2.5 mg PO QHS lisinopril 30 mg Tablet 30 mg PO QHS lidocaine HCl [Lidocaine Viscous] 2 % Solution 10 ml PO Q3H PRN PRN (Reason: sore mouth/oropharynx) Qty: 100 0RF Referrals / Follow Up: Beverly Colunga NP, SUIT ATTENDANT-C [Primary Care Provider] - See Referral Note (at your next appointment time) Mack Jones DO [Med Staff - Active Staff] - See Referral Note (as scheduled) Disposition Disposition (needs filled in before D/C Order can be placed): Home, Self Care
[2022-08-09 13:38] VITALS: BP 141/83; PULSE 98; RESP 18; TEMP 36.6; O2SAT 94
[2022-08-09] MEDS: 0.9% Saline Lock 10 ML Syringe IV (13:59)
--- NOTE | 2022-08-09 14:07 | PHA.DC.MR ---
Pharmacy Service has performed discharge medication reconciliation for this patient. The patient's discharge medication list was reviewed for discrepancies and discrepancies were resolved. Home Medications omeprazole 20 mg capsule,delayed release 20 mg PO DAILY 05/01/18 clobetasol 0.05 % topical cream 1 applic topical BID PRN Skin Cleansing 03/04/21 multivitamin 1 tab PO DAILY 03/03/22 amlodipine 2.5 mg tablet 2.5 mg PO QHS bp 07/10/22 lisinopril 30 mg tablet 30 mg PO QHS bp 07/10/22 sertraline 25 mg tablet 25 mg PO DAILY 07/10/22 lidocaine HCl 2 % mucosal solution (Lidocaine Viscous) 10 ml PO Q3H PRN PRN sore mouth/oropharynx #100 mL 07/26/22
--- NOTE | 2022-08-09 14:51 | PCM.DC.SUM ---
Providers Date of Admission: 08/07/22 Date of Discharge: 08/09/22 Primary Care Physician: MARGARITA Buchanan Reason For Visit: NEUTROPENIC FEVER Diagnosis Discharge Diagnosis (1) Neutropenic fever: Status: Inactive Code(s): D70.9 - Neutropenia, unspecified; R50.81 - Fever presenting with conditions classified elsewhere Plan 1. Neutropenic fever-patient's blood cultures pending at this time, patient was positive for rhinovirus yesterday, continue vancomycin and Zosyn at this time #2 pancytopenia-secondary to chemotherapy-patient's white blood cell count is improving at this time, continue to monitor CBC #3 breast cancer-complicates care, management, recovery, and prognosis #4 essential hypertension-patient is currently on lisinopril and amlodipine #5 GERD-patient is on omeprazole #6 chronic depression-patient is currently on Zoloft #7 chronic anemia-secondary to chronic disease (breast cancer) and chemotherapy for breast cancer Medications at Discharge Home Medications omeprazole 20 mg capsule,delayed release 20 mg PO DAILY 05/01/18 clobetasol 0.05 % topical cream 1 applic topical BID PRN Skin Cleansing 03/04/21 multivitamin 1 tab PO DAILY 03/03/22 amlodipine 2.5 mg tablet 2.5 mg PO QHS bp 07/10/22 lisinopril 30 mg tablet 30 mg PO QHS bp 07/10/22 sertraline 25 mg tablet 25 mg PO DAILY 07/10/22 lidocaine HCl 2 % mucosal solution (Lidocaine Viscous) 10 ml PO Q3H PRN PRN sore mouth/oropharynx #100 mL 07/26/22 Hospital Course Operations None Procedures Blood transfusion Summary of Care Provided Minutes Spent on Discharge: 32 Hospital Course: This 66-year-old white female was seen and examined in the emergency room at [facility] with complaints of fever, she was an active chemotherapy patient for breast cancer, labs obtained showed her to be neutropenic, no focus of infection however could be located. Patient was given IV antibiotics and she was admitted to [place] [address] and her labs were monitored. Gradually the patient's white blood cell count improved and she showed no signs of infection, antibiotics were continued throughout her hospital stay .Patient was given 1 unit of packed red blood cells during her hospitalization. On 08/09/2022, patient was seen and examined: On examination she appeared in good spirits, she does not appear to be in any distress. Vital signs as documented. Skin warm and dry and without overt rashes. Neck without JVD, thyroid appears normal, trachea is midline, neck is supple. Lungs clear, normal air movement was noted. Heart exam notable for regular rhythm, normal sounds and absence of murmurs, rubs or gallops. Abdomen unremarkable and without evidence of organomegaly, masses, or abdominal aortic enlargement, bowel sounds are present in all 4 quadrants, no abdominal tenderness was noted. Extremities nonedematous, no cyanosis was noted, no clubbing was noted. Neuro: Cranial nerves II through XII are grossly intact, no focal motor deficits were noted, sensation to light touch and pinprick is intact, motor exam 5/5 throughout. Psych: Patient is alert and oriented x3, she does not appear anxious or depressed, she does not appear agitated. Patient was discharged home in stable condition on 08/09/2022 Weight / BMI Weight Weight: 109.7 kg Body Mass Index (BMI) 42.8 ABG / Lab / Microbiology Data Result Diagrams: 08/09/22 09:09 08/07/22 05:33 Laboratory: Laboratory Results - last 24 hr 08/08/22 23:10: Vancomycin Trough 35.4 H 08/09/22 09:09: WBC 6.9, RBC 3.21 L, Hgb 9.2 L, Hct 28.3 L, MCV 88.2, MCH 28.7, MCHC 32.5, RDW Std Deviation 50.3 H, RDW Coeff of Tj 17.1 H, Plt Count 118 L, MPV 10.5, Neut % (Auto) Not Reportable, Absolute Neuts (auto) 5.1, Absolute Lymphs (auto) 0.82 L, Total Counted 100, Neutrophils % (Manual) 71 H, Band Neutrophils % 3, Lymphocytes % (Manual) 12 L, Monocytes % (Manual) 6, Metamyelocytes % 4 H, Myelocytes % 3 H, Promyelocytes % 1 H, Diff Path Review May foll, Platelet Estimate SLT, RBC Morphology N CYTIC, Anisocytosis 2+ Microbiology: Microbiology 08/06/22 21:25 Blood Culture (Wb) - Port Blood Culture - Preliminary No growth in 48 hours. 08/06/22 20:46 Blood Culture (Wb) #2 - Port Blood Culture - Preliminary No growth in 48 hours. 08/06/22 20:46 Urine, Clean Catch Urine Culture - Final Mixed Gram Positive Organisms 08/07/22 03:08 Interface Orders Respiratory Panel (PCR) - Final Rhinovirus 08/06/22 20:46 Urine, Clean Catch Legionella Antigen - Final 08/06/22 20:46 Urine, Clean Catch Streptococcus pneumoniae Antigen (M - Final 08/06/22 20:46 Nasal Secretion SARS-CoV-2 Antigen (Rapid) - Final D/C Instructions Discharge Diet: No restrictions Weight Bearing Status: Full weight bearing Meaningful Use Info Meaningful Use Diagnoses (Choose all that apply): None applicable Discharge Plan Admission Admit Date/Time: 08/07/22 13:16 Primary Reason for Your Visit: neutropenic fever Attending Provider: Barrett Bailey Primary Care Provider: Beverly Colunga NP Consulting Providers: Marixa Knott Nana Yaa Discharge Orders/Prescriptions Prescriptions: Continued clobetasol 0.05 % cream 1 applic TOPICAL BID PRN (Reason: Skin Cleansing) multivitamin Tablet 1 tab PO DAILY omeprazole 20 MG capsule,delayed release(DR/EC) 20 mg PO DAILY Label Comments: TK 1 C PO ONCE DAILY sertraline 25 mg tablet 25 mg PO DAILY Label Comments: Take 1 tablet by mouth once daily. amlodipine 2.5 mg Tablet 2.5 mg PO QHS lisinopril 30 mg Tablet 30 mg PO QHS lidocaine HCl [Lidocaine Viscous] 2 % Solution 10 ml PO Q3H PRN PRN (Reason: sore mouth/oropharynx) Qty: 100 0RF Referrals / Follow Up: Mack Jones DO [Med Staff - Active Staff] - See Referral Note (as scheduled) Beverly Colunga NP, [employer] [facility]-C [Primary Care Provider] - See Referral Note (at your next appointment time) Disposition Disposition (needs filled in before D/C Order can be placed): Home, Self Care Charges/Coding Visit Charges Inpatient E&M: 97098 Disch Hosp
[2022-08-10 12:05] LABS: Pathologist Review Reviewed
== END 2022-08-09 14:15 | disposition home or self-care (01) | DRG 808 ==
LOC: ED 23:15 → MS3 08-07 07:26
PROVIDERS: Admitting Provider Family Medicine; Emergency Provider Emergency Medicine; PCP Registered Nurse; Visit Provider Internal Medicine
DX: D70.9 Neutropenia, unspecified (principal); J18.9 Pneumonia, unspecified organism; Z68.41 Body mass index [BMI] 40.0-44.9, adult; C50.911 Malignant neoplasm of unspecified site of right female breast; E66.01 Morbid (severe) obesity due to excess calories; D64.81 Anemia due to antineoplastic chemotherapy; D63.0 Anemia in neoplastic disease; D61.810 Antineoplastic chemotherapy induced pancytopenia; K21.9 Gastro-esophageal reflux disease without esophagitis; I10 Essential (primary) hypertension; M48.00 Spinal stenosis, site unspecified; F41.9 Anxiety disorder, unspecified; G43.909 Migraine, unspecified, not intractable, without status migrainosus; Z79.899 Other long term (current) drug therapy; F32.A Depression, unspecified; T45.1X5A Adverse effect of antineoplastic and immunosuppressive drugs, initial encounter
CPT/HCPCS: 36415; 71046; 80053; 80202; 81001; 83605; 83735; 84100; 84145; 85025; 85610; 85730; 86850; 86900; 86901; 86920; 86922; 87040; 87086; 87088; 87426; 87449; 87633; 99251; 99283; J7030; J7040; J7050; P9016; A4216; G0463; J1447

== ENCOUNTER → 2022-08-19 | Outpatient (CLI) | payer MEDICARE, OTHER, SELFPAY ==
--- NOTE | 2022-08-19 13:38 | ECHOD_ITS ---
Reason For Study: BREAST CANCER Procedure This was a 2D Doppler, Color Flow transthoracic echocardiogram. Myocardial strain analysis was performed in this exam to aid in the assessment of cardiac function. Exam performed in department. Left Ventricle Borderline enlarged left ventricle. Left ventricular systolic function is normal. The estimated ejection fraction is 55 %. The global longitudinal strain = -13% (abnormal). No evidence for diastolic dysfunction. No regional wall motion abnormalities noted. Right Ventricle Normal RV size. Normal systolic function. Atria The left atrium is mildly enlarged. Normal right atrium. No doppler evidence for ASD. Mitral Valve There is no mitral annular calcification. Normal mitral valve. Trivial mitral valve insufficiency. Tricuspid Valve Normal tricuspid valve. Trivial tricuspid valve insufficiency. Unable to estimate RV systolic pressure due to insufficient tricuspid regurgitant envelope. Aortic Valve Trisinus/trileaflet aortic valve. Normal aortic valve. Pulmonic Valve The pulmonic valve is not well visualized. Trivial pulmonic valve insufficiency. Great Vessels Normal sized aortic root. Pericardium/Pleural No pericardial effusion. MMode/2D Measurements & Calculations LVIDd: 5.6 cm IVSd: 1.1 cm Ao root diam: 3.1 cm LVIDs: 4.1 cm LVPWd: 1.2 cm RVDd: 3.4 cm FS: 26.6 % LAV(MOD-bp): 81.8 ml LVAd ap4: 33.9 cm2 SV(MOD-sp4): 40.5 ml LAV(MOD-bp) Indexed: 38.5 ml/m2 LVLd ap4: 8.3 cm LAV(MOD-sp2): 95.5 ml EDV(MOD-sp4): 112.0 ml LAV(MOD-sp4): 70.3 ml EDV(sp4-el): 117.8 ml LVAs ap4: 25.0 cm2 LVLs ap4: 7.3 cm ESV(MOD-sp4): 71.5 ml ESV(sp4-el): 73.0 ml EF(MOD-sp4): 36.1 % EF(sp4-el): 38.1 % SV(sp4-el): 44.8 ml LA A4 area: 24.4 cm2 LA dimension(2D): 5.3 cm RA A4 area: 15.2 cm2 Time Measurements MV dec time: 0.17 sec Doppler Measurements & Calculations MV E max asaf: 99.0 cm/sec Lat Peak E' Asaf: 9.8 cm/sec Med Peak E' Asaf: 15.1 cm/sec MV A max asaf: 120.8 cm/sec E/E' lat: 10.1 E/E' med: 6.6 MV E/A: 0.82 MV V2 max: 124.3 cm/sec Ao V2 max: 195.3 cm/sec MV max P.2 mmHg MV dec slope: 596.3 cm/sec2 Ao max P.3 mmHg MV V2 mean: 81.0 cm/sec Ao V2 mean: 138.0 cm/sec MV mean P.0 mmHg Ao mean P.6 mmHg MV V2 VTI: 26.6 cm Ao V2 VTI: 36.2 cm LV V1 max: 130.1 cm/sec PA V2 max: 118.9 cm/sec LV V1 max P.8 mmHg PA V2 mean: 79.2 cm/sec LV V1 mean P.5 mmHg LV V1 mean: 87.1 cm/sec LV V1 VTI: 24.8 cm ECHO/Echo Complete Interpretation Summary Borderline enlarged left ventricle. Left ventricular systolic function is normal. The estimated ejection fraction is 55 %. The global longitudinal strain = -13% (abnormal). The left atrium is mildly enlarged. Trivial mitral valve insufficiency. Trivial tricuspid valve insufficiency. Trivial pulmonic valve insufficiency. Unable to estimate RV systolic pressure due to insufficient tricuspid regurgita nt envelope. No evidence for diastolic dysfunction. Ordering Physician: Sariah Palacios Referring Physician: Sariah Palacios Performed By: Lyndsay Wei RCS
== END | disposition home or self-care (01) ==
LOC: CVS 13:36
PROVIDERS: PCP Registered Nurse; Referring Provider Nurse Practitioner; Visit Provider Nurse Practitioner
DX: C50.311 Malignant neoplasm of lower-inner quadrant of right female breast (principal); Z17.1 Estrogen receptor negative status [ER-]; Z51.81 Encounter for therapeutic drug level monitoring; Z79.899 Other long term (current) drug therapy
CPT/HCPCS: 93306

== ENCOUNTER → 2022-09-02 | Outpatient (CLI) | payer MEDICARE, OTHER, SELFPAY ==
--- NOTE | 2022-09-02 09:19 | VDLE_ITS ---
Reason For Study: LEG PAIN RIGHT LEFT GSV is normal. GSV is normal. CFV is compressible, spontaneous, phasic, CFV is compressible, spontaneous, phasic, competent and demonstrates normal competent, and demonstrates normal augmentation. augmentation. FV is compressible, spontaneous, phasic, FV is compressible, spontaneous, phasic, competent and demonstrates normal competent and demonstrates normal augmentation. augmentation. Flow noted in Color Doppler at mid FV due POP V is compressible, spontaneous, phasic, patients inability to tolerate compression in competent and demonstrates normal that area. augmentation. POP V is compressible, spontaneous, phasic, T/P Trunk is compressible. competent and demonstrates normal PTV is compressible. augmentation. LT PerV is compressible. T/P Trunk is compressible. A hypoechoic area measuring approximately PTV is compressible. 6.90cm x 2.01cm was noted in the Lt popliteal RT PerV is compressible. fossa. There was no flow measured in color Procedure and pulsed wave doppler. This is a venous duplex using B-mode, color flow and spectral Doppler. Exam performed in department. The exam was diagnostic. VL/Venous Duplex US - Isaiah Extrem Interpretation Summary No evidence for acute deep venous thrombosis bilateral lower extremities with p atent and compressible bilateral great saphenous veins. Left popliteal space 6.9 x 2.01 c m none vascular structure appearance and location consistent with a Solano's cyst. Clinical jose m elation indicated. Mid right femoral vein inspection limited due to intolerance to compression in that area Ordering Physician: Sariah Palacios Referring Physician: Sariah Palacios Performed By: Delroy Garcia RVT
== END | disposition home or self-care (01) ==
LOC: CVS 09:17
PROVIDERS: PCP Registered Nurse; Referring Provider Nurse Practitioner; Visit Provider Nurse Practitioner
DX: C50.311 Malignant neoplasm of lower-inner quadrant of right female breast (principal); Z17.1 Estrogen receptor negative status [ER-]; M79.89 Other specified soft tissue disorders
CPT/HCPCS: 93970

== ENCOUNTER 2022-09-12 08:13 | Outpatient (CLI) | payer MEDICARE, OTHER, SELFPAY ==
[2022-09-12] VITALS (7 sets, daily range): BP systolic 127–155; BP diastolic 67–85; PULSE 83–122; RESP 16–18; TEMP 35.7–36.8; O2SAT 94–98; BMI 41.8
[2022-09-12] MEDS: Furosemide 20 MG/2 ML VIAL IV (11:22)
[2022-09-12] MEDS: 0.9% NaCl Peripheral Flush Adult/Peds IV (13:49)
== END 2022-09-12 23:59 | disposition home or self-care (01) ==
PROVIDERS: PCP Registered Nurse; Referring Provider Internal Medicine Hematology & Oncology; Visit Provider Internal Medicine Hematology & Oncology
DX: D64.81 Anemia due to antineoplastic chemotherapy (principal)
CPT/HCPCS: 36430; 86850; 86900; 86901; 86920; 86922; J7040; P9016; A4216; J1940

== ENCOUNTER 2022-09-17 00:57 | Emergency (ER) | payer MEDICARE, OTHER, SELFPAY ==
[2022-09-17 01:00] VITALS: BP 145/70; PULSE 124; RESP 20; TEMP 37.8; O2SAT 95; BMI 42.3
[2022-09-17 01:02] VITALS: BP 145/70; PULSE 124; RESP 20; TEMP 37.8; O2SAT 95
[2022-09-17 01:47] LABS: Absolute Lymphocyte Count 0.06 X10^3/uL (0.83-4.51); Absolute Neutrophil Count 3.1 X10^3/uL (2.0-7.7); Basophil# 0.01 X10^3/uL; Basophil% 0.3 % (0-1); Hematocrit 27.9 % (37-47); Hemoglobin 8.7 g/dL (12.0-15.0); Lymphocyte # 0.06 X10^3/ul (0.83-4.51); Lymphocyte % 1.8 % (19-41); Mean Corp Hgb Conc 31.2 g/dL (32-36); Mean Corpuscular Hgb 28.7 pg (27.0-32.0); Mean Corpuscular Volume 92.1 fL (81-99); Mean Platelet Vol. 9.5 fl (6.2-12.0); Monocyte# 0.14 X10^3/uL; Monocyte% 4.2 % (0-10); NRBC Flagged by Analyzer 0 % (0-5); Neutrophil # 3.06 X10^3/uL (2.7-7.7); Neutrophil % 92.5 % (47-70); POSITIVE COUNT YES; POSITIVE DIFFERENTIAL YES; POSITIVE MORPHOLOGY YES; Platelet Count 94 K/mm3 (150-450); RBC Distribution Width CV 20.7 % (11.6-14.6); RBC Distribution Width SD 68.2 fl (35.1-43.9); Red Blood Count 3.03 M/mm3 (4.2-5.4); White Blood Count 3.3 K/mm3 (4.4-11.0)
[2022-09-17 01:53] LABS: Differential Indicated SCAN CRITERIA MET
[2022-09-17] MEDS: Ondansetron 4 MG/2 ML Vial IV (01:53)
[2022-09-17] MEDS: Acetaminophen 325 MG Tablet 650 MG PO (01:53)
--- NOTE | 2022-09-17 02:01 | RAD_ITS ---
INDICATION: fever EXAMINATION/TECHNIQUE: X-RAY - AP view of chest COMPARISON: 2 view chest x-ray from 08/06/2022 FINDINGS: LINES/DEVICES: Left jugular Mediport catheter tip at mid SVC. LUNGS: Stable mildly elevated right hemidiaphragm. Mild bibasilar opacities. No overt pulmonary edema. No sizable pleural effusion. No detectable pneumothorax. MEDIASTINUM AND CARDIOVASCULAR STRUCTURES: Heart size within normal limits for imaging technique. Atherosclerotic calcifications along aorta. BONES AND SOFT TISSUES: Skeletal degenerative changes. Thoracolumbar spinal fusion hardware and right shoulder arthroplasty hardware noted. Left axillary surgical clips. RAD/Chest 1 View (Portable) IMPRESSION: Mild bibasilar atelectasis versus infiltrate. Electronically Signed: Barrett Parsons MD at 2:33 EDT ,
[2022-09-17 02:02] VITALS: BP 135/71; PULSE 117; RESP 24; TEMP 37.7; O2SAT 94
[2022-09-17 02:04] LABS: Anion Gap 9 (5-15); BUN 20 mg/dL (7-18); BUN/Creat Ratio 22.3 RATIO (10-20); Calcium,Total 8.6 mg/dL (8.5-10.1); Chloride 103 mmol/L (98-107); EST Glomerular Filtration Rate 66 mL/min (>60); Est Glom Filt Rate - Afr Amer 80 mL/min (>60); Estimated Creatinine Clearance 49.49 ml/min; Glucose 158 mg/dL (74-106); Potassium 3.9 mmol/L (3.5-5.1); Sodium Level 136 mmol/L (136-145)
[2022-09-17 02:07] LABS: Lactic Acid 1.7 mmol/L (0.4-1.9)
[2022-09-17 02:22] LABS: Differential Comment SCANNED
[2022-09-17 02:23] LABS: Anisocytosis 3+; Macrocytosis 1+; Microcytosis 2+
[2022-09-17 02:24] LABS: Ovalocyte RARE
[2022-09-17 03:00] VITALS: BP 116/61; PULSE 117; RESP 22; TEMP 37.6; O2SAT 95; O2SAT 96
[2022-09-17 03:25] LABS: Mucous, Urine 0 SEEN /hpf (<or=2+)
[2022-09-17 03:26] LABS: Color, Urine Yellow (Yellow); Glucose, Dipstick Normal (Normal); Ketone-Dipstick Negative (Negative); Leukocyte Esterase-Dipstick 25 /ul (Negative); Nitrite-Dipstick Negative (Negative); Occult Blood-Urine 25 /ul (Negative); Protein-Dipstick 30 mg/dl (Negative); Urine Bilirubin Dipstick Negative (Negative); Urine Clarity Sl. Cloudy (Clear); Urine Urobilinogen Normal (Normal)
[2022-09-17 03:34] LABS: Bacteria 1+ /hpf (None Seen); Red Blood Cells-Urine 0-5 SEEN /hpf (0-5); Squamous Epithelial Cells - UA 0-5 SEEN /hpf (5-10); Transitional Epithelial - Ur 0-5 SEEN /hpf (0-5); White Blood Cells 0-5 SEEN /hpf (0-5)
--- NOTE | 2022-09-17 05:30 | EDS_ITS ---
HPI History of Present Illness Chief Complaint: Fever Narrative Narrative: Patient is a 66-year-old female with past medical history of breast cancer currently undergoing chemotherapy. She states that this is her fourth round of chemotherapy and that twice during the first 3 rounds she had to be admitted to the hospital after receiving her treatment. She states she received her treatment today and was feeling okay but then started getting shaking chills and then developed a fever and had concerned that she may be becoming infected. She states she contacted her oncologist who advised her to come the hospital for further evaluation [facility] Medical History Ambulates with cane Anemia Anemia Anemia Back pain Back pain Breast CA Breast cancer Breast cancer of upper-outer quadrant of left female breast Bronchitis Cardiology follow-up encounter Essential hypertension Gastric reflux GERD (gastroesophageal reflux disease) History of echocardiogram History of edema History of irregular heartbeat History of pain when walking History of stress test Hypertension Hypoxia Mass of lower inner quadrant of left breast Migraine headache Neutropenic fever Neutropenic fever Non-smoker Osteoarthritis Premature ventricular contraction Preoperative cardiovascular examination Shortness of breath on exertion Spinal stenosis Thrombocytopenia Tubulovillous adenoma of colon Walker as ambulation aid Wears dentures Wears glasses Home Medications omeprazole 20 mg capsule,delayed release 20 mg PO DAILY 05/01/18 [History Last Taken 05/04/22 04:00] clobetasol 0.05 % topical cream 1 applic topical BID PRN Skin Cleansing 03/04/21 [History Last Taken Unknown] multivitamin 1 tab PO DAILY 03/03/22 [History Last Taken Unknown] amlodipine 2.5 mg tablet 2.5 mg PO QHS bp 07/10/22 [History Last Taken Unknown] lisinopril 30 mg tablet 30 mg PO QHS bp 07/10/22 [History Last Taken Unknown] sertraline 25 mg tablet 25 mg PO DAILY 07/10/22 [History Last Taken Unknown] lidocaine HCl 2 % mucosal solution (Lidocaine Viscous) 10 ml PO Q3H PRN PRN sore mouth/oropharynx #100 mL 07/26/22 [Rx Last Taken Unknown] potassium chloride 20 mEq tablet,extended release(part/cryst) 20 meq PO DAILY 09/12/22 [History Last Taken Unknown] cephalexin 500 mg capsule 500 mg PO TID 7 days #21 caps 09/17/22 [Rx Last Taken Unknown] Allergy/AdvReac Type Severity Reaction Status Date / Time codeine Allergy Mild N/V AND Verified 09/12/22 08:53 MAKES HER FEEL REALLY SICK hydrocodone [From Vicodin] Allergy Mild N/V AND Verified 09/12/22 08:53 MAKES HER FEEL REALLY SICK Family History Mother Diabetes Kidney disease Father CVA (cerebral vascular accident) Hypertension Sister Thyroid disorder Surgical History History of breast lump/mass excision History of carpal tunnel surgery History of hip replacement Hx of colonoscopy Hx of esophagogastroduodenoscopy Hx of hysterectomy Hx of surgical amputation of finger Hx of tonsillectomy Hx of tubal ligation Previous back surgery S/P lumpectomy, left breast Status post reverse total arthroplasty of right shoulder Status post reverse total arthroplasty of right shoulder Social History household members: none Smoking Status: Never smoker second hand exposure: No alcohol intake: never substance use type: does not use caffeine: Yes ROS ROS ED Constitutional Constitutional ED: Reports chills and fever(s) ENT ENT ED: Denies sore throat Cardiovascular Cardiovascular: Denies chest pain Respiratory/Chest Respiratory/Chest: Reports cough; Denies dyspnea Gastrointestinal Gastrointestinal: Reports diarrhea; Denies abdominal pain, nausea or vomiting Genitourinary Genitourinary ED: Denies dysuria Musculoskeletal Musculoskeletal: Reports myalgias Integumentary Denies rash Neurologic Neurologic: Denies headache(s) Hematologic/Lymphatic Hematologic/Lymphatic: Reports easy bleeding and easy bruising EXAM Physical Exam Const Vital Signs: 09/17/22 01:00 09/17/22 01:03 09/17/22 01:02 Temperature 100.1 F H 100.1 F H Temperature Source Oral Oral Pulse Rate 124 H 124 H Respiratory Rate 20 H 20 H Respiratory Effort Normal Non-Labored Respiratory Pattern Normal Blood Pressure 145/70 H 145/70 H Blood Pressure Mean 95 95 Pulse Ox 95 95 Oxygen Delivery Method Room Air Room Air 09/17/22 02:02 09/17/22 03:00 09/17/22 03:00 Temperature 100 F H 99.6 F H Temperature Source Oral Temporal Pulse Rate 117 H 117 H 117 H Respiratory Rate 24 H 22 H 22 H Respiratory Effort Respiratory Pattern Blood Pressure 135/71 H 116/61 116/61 Blood Pressure Mean 92 79 79 Pulse Ox 94 96 95 Oxygen Delivery Method Room Air Room Air Room Air Positive well nourished and well developed General Appearance ED: well developed HEENT Reports moist mucous membranes Eyes PERRL and EOMs intact bilaterally Neck supple Resp normal respiratory effort and clear to auscultation bilaterally Resp Narrative: Breath sounds are slight diminished throughout but overall clear to auscultation with no nasal flaring retractions tachypnea or accessory muscle use Cardio regular rhythm Rate: tachycardic and other Other Details: Radial pulses are plus 2 out of 4 bilaterally are equal and symmetric GI normal to inspection, nondistended, normoactive bowel sounds, non-tender and non-distended GI Narrative: No voluntary guarding or rigidity no pulsatile mass Auscultation: normoactive bowel sounds Palpation: soft Extremity normal to inspection Neuro oriented x3 and CN's II-XII intact bilaterally Sensorium / Orientation: alert Psych mental status grossly normal Skin no rashes or lesions noted MDM MDM MDM Narrative Medical decision making narrative: Patient presented to the ER with low-grade temperature of 100.1 and with her history of chemotherapy and cancer there is concern that she is neutropenic and will need admitted to the hospital. Secondary to this basic blood work was obtained along with blood cultures and urine cultures. Patient's labs show mild leukopenia at 3.3 however her neutrophil count is normal at 3.1. Her chest x- ray questions atelectasis versus infiltrate and the patient's had only a mild cough and she is not hypoxic and therefore I feel this is most likely atelectasis. Her urine does show +1 bacteria without contamination. The patient denies any dysuria but because of her immunosuppressive state and low- grade temperature I do feel it is necessary to send this for culture and also start her on antibiotics. Patient was given vancomycin and Zosyn in the ER. The case was discussed with oncology on-call. They agree that as her pressure is stable and the temperature is reducing with Tylenol and the fact that she is not truly neutropenic that we can place her on antibiotics and discharge her home. The plan of care was discussed with the patient and she is agreeable to it at this time. Therefore patient will be started on Keflex secondary to the bacteria in the urine but as she is not hypotensive or hypoxic and her blood work does not show neutropenia she can be discharged and follow-up on an outpatient basis Lab Data Attestation: I reviewed the patient's lab results. Labs: Laboratory Results - last 24 hr 09/17/22 09/17/22 09/17/22 01:36 01:36 01:36 WBC 3.3 L RBC 3.03 L Hgb 8.7 L Hct 27.9 L MCV 92.1 MCH 28.7 MCHC 31.2 L RDW Std Deviation 68.2 H RDW Coeff of Tj 20.7 H Plt Count 94 L MPV 9.5 Immature Gran % (Auto) 1.200 H Neut % (Auto) 92.5 H Lymph % (Auto) 1.8 L [place] % (Auto) 4.2 Eos % (Auto) 0.0 Baso % (Auto) 0.3 Absolute Neuts (auto) 3.1 Absolute Lymphs (auto) 0.06 L Nucleated RBC % 0 Differential Comment SCANNED Diff Path Review May foll Anisocytosis 3+ Microcytosis 2+ Macrocytosis 1+ Ovalocytes RARE Sodium 136 Potassium 3.9 Chloride 103 Carbon Dioxide 24.0 Anion Gap 9 BUN 20 H Creatinine 0.90 Estim Creat Clear Calc 49.49 Est GFR (MDRD) Af Amer 80 Est GFR (MDRD) Non-Af 66 BUN/Creatinine Ratio 22.3 H Glucose 158 H Lactic Acid 1.7 Calcium 8.6 Urine Color Urine Clarity Urine pH Ur Specific [place] Urine Protein Urine Glucose (UA) Urine Ketones Urine Occult Blood Urine Nitrite Urine Bilirubin Urine Urobilinogen Ur Leukocyte Esterase Urine RBC Urine WBC Ur Squamous Epith Cells Ur Transition Epith Cell Urine Bacteria Urine Mucus 09/17/22 03:20 WBC RBC Hgb Hct MCV MCH MCHC RDW Std Deviation RDW Coeff of Tj Plt Count MPV Immature Gran % (Auto) Neut % (Auto) Lymph % (Auto) [place] % (Auto) Eos % (Auto) Baso % (Auto) Absolute Neuts (auto) Absolute Lymphs (auto) Nucleated RBC % Differential Comment Diff Path Review Anisocytosis Microcytosis Macrocytosis Ovalocytes Sodium Potassium Chloride Carbon Dioxide Anion Gap BUN Creatinine Estim Creat Clear Calc Est GFR (MDRD) Af Amer Est GFR (MDRD) Non-Af BUN/Creatinine Ratio Glucose Lactic Acid Calcium Urine Color Yellow Urine Clarity Sl. Cloudy Urine pH 6.0 Ur Specific [place] 1.010 Urine Protein 30 H Urine Glucose (UA) Normal Urine Ketones Negative Urine Occult Blood 25 H Urine Nitrite Negative Urine Bilirubin Negative Urine Urobilinogen Normal Ur Leukocyte Esterase 25 H Urine RBC 0-5 SEEN Urine WBC 0-5 SEEN Ur Squamous Epith Cells 0-5 SEEN Ur Transition Epith Cell 0-5 SEEN Urine Bacteria 1+ Urine Mucus 0 SEEN Radiography Diagnostic Testing: Clinical Impression(s) from Imaging Studies Chest X-Ray 09/17/22 02:01 IMPRESSION: Mild bibasilar atelectasis versus infiltrate. Electronically Signed: Barrett Parsons MD at 2:33 EDT , Chest x-ray as interpreted by the emergency medicine physician reveals mild bibasilar atelectasis versus infiltrate Discharge Plan Triage Chief Complaint: Fever ED Provider: Tyree Shaffer Dx/Rx/DC Orders Clinical Impression: Breast cancer, Thrombocytopenia, UTI (urinary tract infection) Instructions: Urinary Tract Infections in Women Prescriptions: New cephalexin 500 mg capsule 500 mg PO TID 7 Days Qty: 21 0RF No Action clobetasol 0.05 % cream 1 applic TOPICAL BID PRN (Reason: Skin Cleansing) multivitamin Tablet 1 tab PO DAILY omeprazole 20 MG capsule,delayed release(DR/EC) 20 mg PO DAILY Label Comments: TK 1 C PO ONCE DAILY sertraline 25 mg tablet 25 mg PO DAILY Label Comments: Take 1 tablet by mouth once daily. amlodipine 2.5 mg Tablet 2.5 mg PO QHS lisinopril 30 mg Tablet 30 mg PO QHS lidocaine HCl [Lidocaine Viscous] 2 % Solution 10 ml PO Q3H PRN PRN (Reason: sore mouth/oropharynx) Qty: 100 0RF potassium chloride 20 mEq tablet,ER particles/crystals 20 meq PO DAILY Primary Care Provider: Beverly Colunga NP Referrals: Beverly Colunga NP, REVENUE COORDINATOR-C [Primary Care Provider] - Activity Restrictions/Additional Instructions: Please take the antibiotic as directed secondary to your low-grade fever and bacteria found in your urine today. Please have repeat blood work obtained on Monday to ensure that your neutrophil count is remaining stable. Please follow-up with your oncologist on Monday for repeat evaluation but if you feel like symptoms are worsening in any way please return to the ER for repeat evaluation Disposition Disposition: Home, Self Care
[2022-09-17 05:44] VITALS: BP 112/61; PULSE 97; RESP 16; O2SAT 93
[2022-09-17 06:04] VITALS: BP 135/71; PULSE 96; RESP 18; TEMP 36.9; O2SAT 96
[2022-09-19 13:00] LABS: Pathologist Review Reviewed
== END 2022-09-17 06:30 | disposition home or self-care (01) ==
PROVIDERS: Emergency Provider Emergency Medicine; PCP Registered Nurse; Visit Provider Emergency Medicine
DX: N39.0 Urinary tract infection, site not specified (principal); D69.6 Thrombocytopenia, unspecified; C50.919 Malignant neoplasm of unspecified site of unspecified female breast; I10 Essential (primary) hypertension; Z92.21 Personal history of antineoplastic chemotherapy
CPT/HCPCS: 71045; 80048; 81001; 83605; 85025; 87040; 87086; 87088; 96365; 96366; 96367; 96375; 99283; J7030; J7040; A4216; J2405

== ENCOUNTER 2023-03-06 18:58 | Emergency (ER) | payer MEDICARE, OTHER, SELFPAY ==
[2023-03-06 19:00] VITALS: BP 157/108; PULSE 58; RESP 14; TEMP 36.1; O2SAT 98; BMI 36.0
[2023-03-06 21:11] LABS: Absolute Neutrophil Count 4.6 X10^3/uL (2.0-7.7); Basophil# 0.03 X10^3/uL; Basophil% 0.4 % (0-1); Eosinophil# 0.38 X10^3/uL; Hematocrit 33.1 % (37-47); Lymphocyte % 20.9 % (19-41); Mean Corp Hgb Conc 33.2 g/dL (32-36); Mean Corpuscular Hgb 31.8 pg (27.0-32.0); Mean Corpuscular Volume 95.7 fL (81-99); Mean Platelet Vol. 10.3 fl (6.2-12.0); Monocyte# 1.01 X10^3/uL; Monocyte% 13.2 % (0-10); NRBC Flagged by Analyzer 0 % (0-5); Neutrophil # 4.61 X10^3/uL (2.7-7.7); POSITIVE MORPHOLOGY YES; Platelet Count 193 K/mm3 (150-450); RBC Distribution Width SD 77.4 fl (35.1-43.9); Red Blood Count 3.46 M/mm3 (4.2-5.4); White Blood Count 7.7 K/mm3 (4.4-11.0)
[2023-03-06] MEDS: 0.9% Normal Saline 1,000 ML 1000 ML IV (21:12)
--- NOTE | 2023-03-06 21:12 | EDS_ITS ---
HPI History of Present Illness Chief Complaint: Diarrhea Detail of Chief Complaint: Profuse diarrhea Informant: patient Onset/Context/Timing Onset: Days Context: Sudden Onset Timing: Continuous Quality: Multiple loose watery stools per day. Location: GI Current Severity: Moderate Maximum Severity: Moderate Worsened by: Possibly chemo Relieved by: Nothing Associated Symptoms Associated Symptoms: Thirst, dry mouth and denies orthostatic symptoms Narrative Narrative: Patient is a 66-year-old woman with history of breast cancer who had recurrence and underwent bilateral mastectomy. She has triple negative breast cancer. She does not know the stage. She states her oncologist Dr. Mack Jones. She states she is asked twice but has not received a response. She received chemo last Monday. She denies fever or chills. She denies headache, visual, ocular auditory symptoms. She denies cardiac or respiratory symptoms. She does report nausea. She denies dysuria, frequency, urgency or hematuria. She denies myalgias or arthralgias. She denies paresthesia. She does report mild generalized weakness. Prior similar symptoms: Yes Recent Illness/Hospitalization: No PFSH PFSH Medical History Ambulates with cane Anemia Anemia Anemia Back pain Back pain Breast CA Breast cancer Breast cancer of upper-outer quadrant of left female breast Bronchitis Cardiology follow-up encounter Essential hypertension Gastric reflux GERD (gastroesophageal reflux disease) History of echocardiogram History of edema History of irregular heartbeat History of pain when walking History of stress test Hypertension Hypoxia Mass of lower inner quadrant of left breast Migraine headache Neutropenic fever Neutropenic fever Non-smoker Osteoarthritis Premature ventricular contraction Preoperative cardiovascular examination Shortness of breath on exertion Spinal stenosis Thrombocytopenia Tubulovillous adenoma of colon Walker as ambulation aid Wears dentures Wears glasses Home Medications omeprazole 20 mg capsule,delayed release 20 mg PO DAILY 05/01/18 [History Last Taken 05/04/22 04:00] clobetasol 0.05 % topical cream 1 applic topical BID PRN Skin Cleansing 03/04/21 [History Last Taken Unknown] multivitamin 1 tab PO DAILY 03/03/22 [History Last Taken Unknown] amlodipine 2.5 mg tablet 2.5 mg PO QHS bp 07/10/22 [History Last Taken Unknown] lisinopril 30 mg tablet 30 mg PO QHS bp 07/10/22 [History Last Taken Unknown] sertraline 25 mg tablet 25 mg PO DAILY 07/10/22 [History Last Taken Unknown] lidocaine HCl 2 % mucosal solution (Lidocaine Viscous) 10 ml PO Q3H PRN PRN sore mouth/oropharynx #100 mL 07/26/22 [Rx Last Taken Unknown] potassium chloride 20 mEq tablet,extended release(part/cryst) 20 meq PO DAILY 09/12/22 [History Last Taken Unknown] cephalexin 500 mg capsule 500 mg PO TID 7 days #21 caps 09/17/22 [Rx Last Taken Unknown] potassium chloride 20 mEq/15 mL oral liquid 20 meq (15 mL) PO BID #240 mL 03/06/23 [Rx Last Taken Unknown] Allergy/AdvReac Type Severity Reaction Status Date / Time codeine Allergy Mild N/V AND Verified 03/06/23 19:02 MAKES HER FEEL REALLY SICK hydrocodone [From Vicodin] Allergy Mild N/V AND Verified 03/06/23 19:02 MAKES HER FEEL REALLY SICK Family History Mother Diabetes Kidney disease Father CVA (cerebral vascular accident) Hypertension Sister Thyroid disorder Surgical History History of breast lump/mass excision History of carpal tunnel surgery History of hip replacement Hx of colonoscopy Hx of esophagogastroduodenoscopy Hx of hysterectomy Hx of surgical amputation of finger Hx of tonsillectomy Hx of tubal ligation Previous back surgery S/P lumpectomy, left breast Status post reverse total arthroplasty of right shoulder Status post reverse total arthroplasty of right shoulder Social History household members: none Smoking Status: Never smoker second hand exposure: No alcohol intake: never substance use type: does not use caffeine: Yes ROS ROS ED Constitutional Constitutional ED: Denies chills, fever(s), subjective or sweats Eyes Eyes: Denies blurry vision, change in vision or diplopia ENT ENT ED: Denies ear pain, rhinorrhea or sore throat Cardiovascular Cardiovascular: Denies chest pain, orthopnea, palpitations, paroxysmal nocturnal dyspnea or racing heartbeat Respiratory/Chest Respiratory/Chest: Denies cough, dyspnea, dyspnea on exertion, orthopnea or paroxysmal nocturnal dyspnea Gastrointestinal Gastrointestinal: Reports abdominal pain, diarrhea and nausea; Denies constipation, melena or vomiting Genitourinary Genitourinary ED: Denies dysuria, hematuria or urinary frequency Musculoskeletal Musculoskeletal: Denies arthralgias, back pain, myalgias or neck pain Integumentary Denies Abrasions Neurologic Neurologic: Denies headache(s), paresthesias or weakness Psychiatric Psychiatric: Denies anxiety or depression Endocrine Endocrinology: Denies cold intolerance or heat intolerance Hematologic/Lymphatic Hematologic/Lymphatic: Reports as per HPI EXAM Physical Exam Const Vital Signs: 03/06/23 19:00 Temperature 96.9 F L Temperature Source Temporal Pulse Rate 58 L Respiratory Rate 14 Blood Pressure 157/108 H Blood Pressure Mean 124 Pulse Ox 98 Oxygen Delivery Method Room Air Positive well nourished, well developed and obese General Appearance ED: well developed and NAD; Negative for cyanotic, diaphoretic or pallor Nutritional Appearance: obese HEENT Reports dry mucous membranes HEENT Narrative: Head is atraumatic normocephalic. Ears normal. Nares patent with no discharge. Mucosas slightly dry. Uvula is midline. There is no deviation tongue or protrusion. Mouth ED: Yes dry mucous membranes Mouth: dry mucous membranes Eyes PERRL and EOMs intact bilaterally General Eye ED: Negative for pale conjunctiva or scleral icterus Neck no lymphadenopathy, supple and no JVD Chest Wall inspection of chest normal and palpation of chest normal Resp normal respiratory effort and clear to auscultation bilaterally Cardio regular rate, regular rhythm, S1 normal heart sound, S2 normal heart sound and no murmurs GI normal to inspection, nondistended, normoactive bowel sounds, non-tender, non- distended and no masses; Negative for hepatosplenomegaly Palpation: soft Back/Spine no CVA tenderness Extremity normal to inspection General Extremety ED: Negative for tenderness Neuro oriented x3, CN's II-XII intact bilaterally and no sensory deficits noted Sensorium / Orientation: alert Psych mental status grossly normal Skin no rashes or lesions noted, no wounds and skin turgor normal General Skin Exam: Negative for jaundice or pallor MDM MDM MDM Narrative Medical decision making narrative: Patient presents with diarrhea. Need to rule out infectious i.e. viral bacterial versus chemo induced. Will obtain basic metabolic panel assess renal function and evaluate for hypokalemia. CBC to assess white count and absolute neutrophil count since she did receive chemotherapy last week as well as H&H. IV fluids were ordered. Stool was collected for enteric pathogen's, occult blood and white cells. The lab was contacted regarding stool test. The occult blood and white cell test should be performed tonight. The enteric pathogen will not be performed tonight. Therefore, we will turn the case over to the night physician. If stool is negative for blood and leukocytes discharge home with Imodium. If positive for white cells would recommend treating with antibiotics. We will discuss case with the night physician Dr. Tyree Shaffer. Stool for occult blood and white cells are both negative. Therefore will discharge to home with prescription for Imodium. Lab Data Attestation: I reviewed the patient's lab results. Lab results narrative: CBC reveals normal white count and differential. Hemoglobin is higher than normal at 11.0. Baseline is approximately 9.5-10. Electrolyte panel is remarkable for a potassium of 2.9. Lactate was normal at 1.7. Will treat with p.o. potassium 40 mEq now and repeat in 1 hour. Labs: Laboratory Results - last 24 hr 03/06/23 03/06/23 03/06/23 21:00 21:00 21:00 WBC 7.7 RBC 3.46 L Hgb 11.0 L Hct 33.1 L MCV 95.7 MCH 31.8 MCHC 33.2 RDW Std Deviation 77.4 H RDW Coeff of Tj 24.0 H Plt Count 193 MPV 10.3 Immature Gran % (Auto) 0.500 Neut % (Auto) 60.0 Lymph % (Auto) 20.9 [place] % (Auto) 13.2 H Eos % (Auto) 5.0 Baso % (Auto) 0.4 Absolute Neuts (auto) 4.6 Absolute Lymphs (auto) 1.60 Nucleated RBC % 0 Differential Comment SCANNED Anisocytosis 2+ Sodium 140 Potassium 2.9 L Chloride 113 H Carbon Dioxide 21.0 Anion Gap 6 BUN 22 H Creatinine 0.82 Estim Creat Clear Calc 53.56 Est GFR (MDRD) Af Amer 88 Est GFR (MDRD) Non-Af 73 BUN/Creatinine Ratio 26.7 H Glucose 114 H Lactic Acid 1.7 Calcium 8.8 Rhythm Strip Rhythm Strip: Sinus Rhythm Rate: 60 EKG Initial EKG: Attestation: I personally reviewed and interpreted this EKG as follows: (KG was obtained because nurse noted bigeminy.) Interpretation: Sinus Rhythm (With ventricular bigeminy. Rate is 97. NC interval is approximately 160 ms. QRS duration 124 ms. QT duration 386 ms. There is a nonspecific intraventricular conduction delay.) Differential Diagnosis Chest pain/SOB: COPD Treatment and Re-Evaluation :: IV fluids. Discharge Plan Triage Chief Complaint: Diarrhea ED Provider: Clark Ortega Dx/Rx/DC Orders Clinical Impression: Diarrhea, Acute dehydration, Recurrent breast cancer, Bigeminal rhythm, Acute hypokalemia Instructions: ED Diarrhea, Unknown Cause, ED Hypokalemia Prescriptions: New potassium chloride 20 mEq/15 mL liquid 20 meq PO BID Qty: 240 0RF No Action clobetasol 0.05 % cream 1 applic TOPICAL BID PRN (Reason: Skin Cleansing) multivitamin Tablet 1 tab PO DAILY omeprazole 20 MG capsule,delayed release(DR/EC) 20 mg PO DAILY Label Comments: TK 1 C PO ONCE DAILY sertraline 25 mg tablet 25 mg PO DAILY Label Comments: Take 1 tablet by mouth once daily. amlodipine 2.5 mg Tablet 2.5 mg PO QHS lisinopril 30 mg Tablet 30 mg PO QHS lidocaine HCl [Lidocaine Viscous] 2 % Solution 10 ml PO Q3H PRN PRN (Reason: sore mouth/oropharynx) Qty: 100 0RF potassium chloride 20 mEq tablet,ER particles/crystals 20 meq PO DAILY cephalexin 500 mg capsule 500 mg PO TID 7 Days Qty: 21 0RF Primary Care Provider: Beverly Colunga NP Referrals: Beverly Colunga NP, B[employer] LIBRARY TECHNICAL ASSISTANT-C [Primary Care Provider] - 3-5 Days if not improving Disposition Disposition: Home, Self Care
[2023-03-06 21:22] LABS: Differential Indicated SCAN CRITERIA MET
[2023-03-06 21:24] LABS: Anion Gap 6 (5-15); BUN 22 mg/dL (7-18); BUN/Creat Ratio 26.7 RATIO (10-20); Calcium,Total 8.8 mg/dL (8.5-10.1); Chloride 113 mmol/L (98-107); Creatinine, Serum 0.82 mg/dL (0.55-1.02); EST Glomerular Filtration Rate 73 mL/min (>60); Est Glom Filt Rate - Afr Amer 88 mL/min (>60); Estimated Creatinine Clearance 53.56 ml/min; Glucose 114 mg/dL (74-106); Potassium 2.9 mmol/L (3.5-5.1); Sodium Level 140 mmol/L (136-145)
[2023-03-06 21:34] LABS: Lactic Acid 1.7 mmol/L (0.4-1.9)
[2023-03-06 22:00] LABS: Anisocytosis 2+; Differential Comment SCANNED
--- NOTE | 2023-03-06 22:10 | EKG12_ITS ---
Test Reason : Blood Pressure : / mmHG Vent. Rate : 097 BPM Atrial Rate : 097 BPM P-R Int : 000 ms QRS Dur : 124 ms QT Int : 386 ms P-R-T Axes : 000 054 266 degrees QTc Int : 490 ms Normal sinus rhythm Premature ventricular complexes Non-specific intra-ventricular conduction delay Marked ST abnormality, possible inferior subendocardial injury Abnormal ECG Confirmed by JUDY HODGE, DOMO ([id number]), food editor DAGOBERTO WISDOM ([id number]) on 03/09/2023 9:13:41 AM Referred By: Confirmed By:DOMO KIM MD
[2023-03-06] MEDS: Potassium Chloride Oral Soln 20 MEQ/15 ML UDC 40 MEQ PO ×2 (22:17→23:27)
[2023-03-06 23:29] VITALS: BP 148/81; PULSE 99; RESP 17; O2SAT 98
== END 2023-03-06 23:42 | disposition home or self-care (01) ==
PROVIDERS: Emergency Provider Emergency Medicine; PCP Registered Nurse; Visit Provider Emergency Medicine
DX: R19.7 Diarrhea, unspecified (principal); C50.919 Malignant neoplasm of unspecified site of unspecified female breast; E86.0 Dehydration; E87.6 Hypokalemia; I10 Essential (primary) hypertension; R00.8 Other abnormalities of heart beat; K21.9 Gastro-esophageal reflux disease without esophagitis; Z79.899 Other long term (current) drug therapy
CPT/HCPCS: 36591; 80048; 82274; 83605; 83630; 85025; 87493; 87506; 93005; 96360; 96361; 99285; J7030; A4216

== ENCOUNTER 2023-04-22 21:06 | Emergency (ER) | payer MEDICARE, OTHER, SELFPAY ==
[2023-04-22 21:08] VITALS: BP 129/68; PULSE 108; RESP 17; TEMP 37.4; O2SAT 97
[2023-04-22 21:31] VITALS: BMI 39.2
--- NOTE | 2023-04-22 21:47 | EX.ED.DYSGE1 ---
HPI History of Present Illness Chief Complaint: Fever Informant: patient Onset/Context/Timing Onset: Today Context: Gradual Onset Timing: Continuous Quality: Chills Location: Generalized Worsened by: Nothing Relieved by: Shower Narrative Narrative: Patient presents with fever and chills that began today. Patient states they have been gradually getting worse. Patient states her temperature was up to 100.9. Patient is on oral chemotherapy for breast cancer treatment. Patient does admit to a sore throat. Patient admits to a cough with some clear sputum. Patient admits to some urinary urgency. Patient denies any shortness of breath. Patient denies any chest pain. Patient denies any nausea or vomiting. [facility] Medical History Ambulates with cane Anemia Anemia Anemia Back pain Back pain Breast CA Breast cancer Breast cancer of upper-outer quadrant of left female breast Bronchitis Cancer Cardiology follow-up encounter Essential hypertension FH: bilateral hip replacements Gastric reflux GERD (gastroesophageal reflux disease) GERD (gastroesophageal reflux disease) History of echocardiogram History of edema History of irregular heartbeat History of pain when walking History of stress test Hypertension Hypoxia Irregular heart beat Mass of lower inner quadrant of left breast Migraine headache Neutropenic fever Neutropenic fever Non-smoker Osteoarthritis Osteoporosis Premature ventricular contraction Preoperative cardiovascular examination Shortness of breath on exertion Spinal stenosis Thrombocytopenia Tubulovillous adenoma of colon Walker as ambulation aid Wears dentures Wears glasses Home Medications amlodipine 2.5 mg tablet 2.5 mg PO QHS bp 07/10/22 [History Last Taken Unknown] lisinopril 30 mg tablet 30 mg PO QHS bp 07/10/22 [History Last Taken Unknown] capecitabine 500 mg tablet 1,500 mg PO BID 04/22/23 [History Last Taken Unknown] docusate sodium 100 mg capsule (Colace) 100 mg PO BID 04/22/23 [History Last Taken Unknown] duloxetine 20 mg capsule,delayed release (Cymbalta) 20 mg PO DAILY 04/22/23 [History Last Taken Unknown] levofloxacin 500 mg tablet 500 mg PO DAILY #3 tabs 04/22/23 [Rx Last Taken Unknown] pyridoxine (vitamin B6) 25 mg tablet 25 mg PO DAILY 04/22/23 [History Last Taken Unknown] Allergy/AdvReac Type Severity Reaction Status Date / Time codeine Allergy Mild N/V AND Verified 04/22/23 21:12 MAKES HER FEEL REALLY SICK hydrocodone [From Vicodin] Allergy Mild N/V AND Verified 04/22/23 21:12 MAKES HER FEEL REALLY SICK Family History Mother Diabetes Kidney disease Father CVA (cerebral vascular accident) Hypertension Sister Thyroid disorder Surgical History H/O bilateral mastectomy History of breast lump/mass excision History of carpal tunnel surgery History of hip replacement History of right shoulder replacement Hx of colonoscopy Hx of esophagogastroduodenoscopy Hx of hysterectomy Hx of surgical amputation of finger Hx of tonsillectomy Hx of tubal ligation Previous back surgery Previous back surgery S/P lumpectomy, left breast Status post reverse total arthroplasty of right shoulder Status post reverse total arthroplasty of right shoulder Social History household members: none Smoking Status: Never smoker second hand exposure: No alcohol intake: never substance use type: does not use caffeine: Yes ROS ROS ED Constitutional Constitutional ED: Reports chills and fever(s) Eyes Eyes: Denies blurry vision or change in vision ENT ENT ED: Reports sore throat; Denies rhinorrhea Cardiovascular Cardiovascular: Denies chest pain or palpitations Respiratory/Chest Respiratory/Chest: Reports cough; Denies dyspnea Gastrointestinal Gastrointestinal: Denies nausea or vomiting Genitourinary Genitourinary ED: Reports urinary urgency; Denies dysuria or hematuria Musculoskeletal Musculoskeletal: Denies back pain or neck pain Integumentary Denies abscess or rash Neurologic Neurologic: Denies headache(s) or weakness Allergic/Immunologic Allergic/Immunologic ED: Denies mouth swelling or urticaria EXAM Physical Exam Const Vital Signs: 04/22/23 21:08 04/22/23 21:18 04/22/23 22:27 Temperature 99.3 F H 98.2 F Temperature Source Oral Oral Pulse Rate 108 H 81 Respiratory Rate 17 24 H Respiratory Effort Normal Respiratory Pattern Normal Blood Pressure 129/68 H 124/77 H Blood Pressure Mean 88 92 Pulse Ox 97 98 Oxygen Delivery Method Room Air Room Air Positive well nourished and well developed General Appearance ED: well developed and NAD HEENT Reports moist mucous membranes Neck supple and no JVD Resp normal respiratory effort and clear to auscultation bilaterally Cardio regular rate, regular rhythm and no murmurs GI normal to inspection, nondistended, normoactive bowel sounds and non-tender Palpation: soft Extremity normal to inspection General Extremety ED: Negative for edema or tenderness General Extremity: Negative for edema Neuro oriented x3, CN's II-XII intact bilaterally and no sensory deficits noted Sensorium / Orientation: alert Motor Exam: strength 5/5 throughout Psych mental status grossly normal Skin no rashes or lesions noted MDM MDM MDM Narrative Medical decision making narrative: Differential diagnosis includes neutropenic fever, urinary tract infection, pneumonia, pharyngitis, COVID-19 infection, influenza infection, and bronchitis. Chest x-ray will be obtained to assess for pneumonia and pneumothorax. CBC will be obtained to assess for leukocytosis, neutropenia, and anemia. Comprehensive metabolic profile will be obtained to assess for hepatic function, renal function, and electrolyte abnormality. Lactate will be obtained to assess for sepsis. Urinalysis will be obtained to assess for urinary tract infection. Blood cultures will be obtained to assess for sepsis. Urine culture will be obtained to assess for urinary tract infection. COVID-19 rapid antigen will be obtained to assess for COVID-19 infection. Influenza A and influenza B antigens will be obtained to assess for influenza infection. Lab Data Attestation: I reviewed the patient's lab results. Lab results narrative: CBC was reviewed. White blood cell count was normal. Absolute neutrophil count was normal. Hemoglobin was stable at 9.8 and hematocrit was 28.9. Comprehensive metabolic profile was reviewed and was within normal limits. Urinalysis was reviewed. There is no evidence of urinary tract infection or hematuria. Lactate was reviewed and was normal at 1.5. COVID-19 rapid antigen was reviewed and was negative. Influenza A and influenza B antigens were reviewed and were negative. Labs: Laboratory Results - last 24 hr 04/22/23 04/22/23 04/22/23 21:40 22:03 22:03 WBC 6.2 RBC 2.68 L Hgb 9.8 L Hct 28.9 L MCV 107.8 H MCH 36.6 H MCHC 33.9 RDW Std Deviation 95.1 H RDW Coeff of Tj 23.7 H Plt Count 141 L MPV 10.2 Immature Gran % (Auto) 0.300 Neut % (Auto) 70.1 H Lymph % (Auto) 16.0 L Waldo % (Auto) 10.7 H Eos % (Auto) 2.7 Baso % (Auto) 0.2 Absolute Neuts (auto) 4.4 Absolute Lymphs (auto) 1.00 Nucleated RBC % 0 RBC Morphology N CHROM Anisocytosis 1+ Macrocytosis 2+ Sodium 139 Potassium 3.7 Chloride 105 Carbon Dioxide 28.0 Anion Gap 6 BUN 18 Creatinine 0.90 Estim Creat Clear Calc 48.80 Est GFR (MDRD) Af Amer 80 Est GFR (MDRD) Non-Af 66 BUN/Creatinine Ratio 20.1 H Glucose 117 H Lactic Acid Calcium 9.0 Total Bilirubin 0.60 AST 18 ALT 15 Alkaline Phosphatase 73 Total Protein 6.4 Albumin 3.0 L Globulin 3.4 Albumin/Globulin Ratio 0.9 Urine Color Yellow Urine Clarity Clear Urine pH 6.0 Ur Specific Clayton 1.015 Urine Protein Negative Urine Glucose (UA) Normal Urine Ketones Negative Urine Occult Blood 10 H Urine Nitrite Negative Urine Bilirubin Negative Urine Urobilinogen Normal Ur Leukocyte Esterase 25 H Urine RBC 0 SEEN Urine WBC 0-5 SEEN Ur Squamous Epith Cells 0-5 SEEN Urine Bacteria RARE Urine Mucus 0 SEEN 04/22/23 22:03 WBC RBC Hgb Hct MCV MCH MCHC RDW Std Deviation RDW Coeff of Tj Plt Count MPV Immature Gran % (Auto) Neut % (Auto) Lymph % (Auto) Waldo % (Auto) Eos % (Auto) Baso % (Auto) Absolute Neuts (auto) Absolute Lymphs (auto) Nucleated RBC % RBC Morphology Anisocytosis Macrocytosis Sodium Potassium Chloride Carbon Dioxide Anion Gap BUN Creatinine Estim Creat Clear Calc Est GFR (MDRD) Af Amer Est GFR (MDRD) Non-Af BUN/Creatinine Ratio Glucose Lactic Acid 1.5 Calcium Total Bilirubin AST ALT Alkaline Phosphatase Total Protein Albumin Globulin Albumin/Globulin Ratio Urine Color Urine Clarity Urine pH Ur Specific Clayton Urine Protein Urine Glucose (UA) Urine Ketones Urine Occult Blood Urine Nitrite Urine Bilirubin Urine Urobilinogen Ur Leukocyte Esterase Urine RBC Urine WBC Ur Squamous Epith Cells Urine Bacteria Urine Mucus Radiography Diagnostic Testing: Clinical Impression(s) from Imaging Studies Chest X-Ray 04/22/23 22:10 IMPRESSION: No active disease. Cardiomegaly. Electronically Signed: Jeremy Ayala MD at 22:33 EDT , PA and lateral chest x-ray was obtained. There are 2 views. On my independent interpretation, lung judd are clear. There is cardiomegaly. Bony thorax is normal. There is no acute process noted. Radiologist also interpreted the x-ray and agrees. Treatment and Re-Evaluation :: Patient was given IV fluids and Tylenol here. Patient was feeling better on reevaluation. Case was discussed with Dr. Quintana who was covering for Dr. Jones. She recommended covering the patient prophylactically with Levaquin 500 mg daily for 3 days. Patient was given her first dose of Levaquin here. Patient will be instructed to follow-up with Dr. Jones in 3 to 5 days for reevaluation. Patient understood and was agreeable with the plan. All questions were answered. Discharge Plan Triage Chief Complaint: Fever ED Provider: Jeremias Melvin Dx/Rx/DC Orders Clinical Impression: Fever, unknown origin, History of breast cancer Instructions: ED FUO Adult Prescriptions: New levofloxacin [levofloxacin] 500 mg tablet 500 mg PO DAILY Qty: 3 0RF No Action amlodipine 2.5 mg Tablet 2.5 mg PO QHS lisinopril 30 mg Tablet 30 mg PO QHS pyridoxine (vitamin B6) 25 mg Tablet 25 mg PO DAILY duloxetine [Cymbalta] 20 mg Capsule,Delayed Release(Dr/Ec) 20 mg PO DAILY capecitabine 500 mg Tablet 1,500 mg PO BID Rx Instructions: for 14 days on 7 days off docusate sodium [Colace] 100 mg Capsule 100 mg PO BID Primary Care Provider: Beverly Colunga NP Referrals: Mack Jones DO [Med Staff - Active Staff] - 3-5 Days Beverly Colunga NP, [facility] [Primary Care Provider] - Disposition Disposition: Home, Self Care
[2023-04-22] MEDS: Acetaminophen 500 MG Tablet 1000 MG PO (21:50)
[2023-04-22] MEDS: 0.9% Normal Saline 1,000 ML 1000 ML IV (22:03)
--- NOTE | 2023-04-22 22:10 | RAD_ITS ---
STUDY: X-RAY CHEST REASON FOR EXAM: Female, 67 years old. Fever TECHNIQUE: PA and lateral views of the chest. COMPARISON: 09/17/2022 FINDINGS: Left internal jugular chest port which is unchanged. Status post left axillary lymph node dissection. The lungs are clear and expanded. There is no demonstrated pleural abnormality. There is moderate cardiac enlargement. Normal mediastinum and sona. Normal visualized pulmonary arteries. Normal visualized aortic arch and descending thoracic aorta. Spinal rods in the thoracolumbar spine. Status post right shoulder reverse arthroplasty. There is no demonstrated abnormality of the visualized soft tissue structures of the upper abdomen. RAD/Chest PA and Lateral IMPRESSION: No active disease. Cardiomegaly. Electronically Signed: Jeremy Ayala MD at 22:33 EDT ,
[2023-04-22 22:12] LABS: Mucous, Urine 0 SEEN /hpf (<or=2+); Red Blood Cells-Urine 0 SEEN /hpf (0-5)
[2023-04-22 22:15] LABS: Color, Urine Yellow (Yellow); Glucose, Dipstick Normal (Normal); Ketone-Dipstick Negative (Negative); Leukocyte Esterase-Dipstick 25 /ul (Negative); Nitrite-Dipstick Negative (Negative); Occult Blood-Urine 10 /ul (Negative); Protein-Dipstick Negative (Negative); Specific Gravity, Urine 1.015 (1.002-1.030); Urine Bilirubin Dipstick Negative (Negative); Urine Clarity Clear (Clear); Urine Urobilinogen Normal (Normal)
[2023-04-22 22:22] LABS: Absolute Neutrophil Count 4.4 X10^3/uL (2.0-7.7); Basophil# 0.01 X10^3/uL; Basophil% 0.2 % (0-1); Eosinophil# 0.17 X10^3/uL; Eosinophils% 2.7 % (0-5); Hematocrit 28.9 % (37-47); Hemoglobin 9.8 g/dL (12.0-15.0); Mean Corp Hgb Conc 33.9 g/dL (32-36); Mean Corpuscular Hgb 36.6 pg (27.0-32.0); Mean Corpuscular Volume 107.8 fL (81-99); Mean Platelet Vol. 10.2 fl (6.2-12.0); Monocyte# 0.67 X10^3/uL; Monocyte% 10.7 % (0-10); NRBC Flagged by Analyzer 0 % (0-5); Neutrophil # 4.37 X10^3/uL (2.7-7.7); Neutrophil % 70.1 % (47-70); POSITIVE MORPHOLOGY YES; Platelet Count 141 K/mm3 (150-450); RBC Distribution Width CV 23.7 % (11.6-14.6); RBC Distribution Width SD 95.1 fl (35.1-43.9); Red Blood Count 2.68 M/mm3 (4.2-5.4); White Blood Count 6.2 K/mm3 (4.4-11.0)
[2023-04-22 22:27] VITALS: BP 124/77; PULSE 81; RESP 24; TEMP 36.8; O2SAT 98
[2023-04-22 22:28] LABS: ALB/GLOB Ratio 0.9 RATIO (0.9-2.4); AST(SGOT) 18 U/L (15-37); Alanine Aminotransfer ALT/SGPT 15 U/L (13-56); Alkaline Phosphatase 73 U/L (45-117); Anion Gap 6 (5-15); BUN 18 mg/dL (7-18); BUN/Creat Ratio 20.1 RATIO (10-20); Chloride 105 mmol/L (98-107); EST Glomerular Filtration Rate 66 mL/min (>60); Est Glom Filt Rate - Afr Amer 80 mL/min (>60); Globulin 3.4 g/dL (2.2-4.2); Glucose 117 mg/dL (74-106); Potassium 3.7 mmol/L (3.5-5.1); Protein, Total 6.4 g/dL (6.4-8.2); Sodium Level 139 mmol/L (136-145)
[2023-04-22 22:32] LABS: Bacteria RARE /hpf (None Seen); Squamous Epithelial Cells - UA 0-5 SEEN /hpf (5-10); White Blood Cells 0-5 SEEN /hpf (0-5)
[2023-04-22 22:36] LABS: Lactic Acid 1.5 mmol/L (0.4-1.9)
[2023-04-22 22:43] LABS: Differential Indicated SCAN CRITERIA MET
[2023-04-22 22:56] LABS: Anisocytosis 1+; Macrocytosis 2+; Red Cell Morphology N CHROM NORMAL (NORM C&C)
[2023-04-22] MEDS: levoFLOXacin 500 MG Tablet PO (23:50)
== END 2023-04-22 23:52 | disposition home or self-care (01) ==
PROVIDERS: Emergency Provider Emergency Medicine; PCP Registered Nurse; Visit Provider Emergency Medicine
DX: R50.9 Fever, unspecified (principal); C50.412 Malignant neoplasm of upper-outer quadrant of left female breast; I10 Essential (primary) hypertension; Z92.21 Personal history of antineoplastic chemotherapy; Z79.899 Other long term (current) drug therapy; Z96.649 Presence of unspecified artificial hip joint; Z96.611 Presence of right artificial shoulder joint; Z90.710 Acquired absence of both cervix and uterus
CPT/HCPCS: 36591; 71046; 80053; 81001; 83605; 85025; 87040; 87086; 87088; 87428; 96360; 99284; J7030; A4216

== ENCOUNTER → 2023-05-24 | Outpatient (CLI) | payer MEDICARE, OTHER, SELFPAY | END | disposition home or self-care (01) | LOC: PSN 11:37 | PROVIDERS: PCP Registered Nurse; Referring Provider Nurse Practitioner Family; Visit Provider Nurse Practitioner Family | DX: Z86.79 Personal history of other diseases of the circulatory system (principal) | CPT/HCPCS: 93225; 93226 ==

== ENCOUNTER → 2023-07-25 | Outpatient (CLI) | payer MEDICARE, OTHER, SELFPAY | END | disposition home or self-care (01) | LOC: PSN 11:36 | PROVIDERS: PCP Registered Nurse; Referring Provider Nurse Practitioner Family; Visit Provider Nurse Practitioner Family | DX: I49.3 Ventricular premature depolarization (principal); I10 Essential (primary) hypertension | CPT/HCPCS: 93225; 93226 ==

== ENCOUNTER → 2024-09-19 | Outpatient (CLI) | payer MEDICARE, OTHER, SELFPAY | END | disposition home or self-care (01) | LOC: CVS 12:46 | PROVIDERS: PCP Registered Nurse; Referring Provider Internal Medicine Cardiovascular Disease; Visit Provider Internal Medicine Cardiovascular Disease | DX: I34.0 Nonrheumatic mitral (valve) insufficiency (principal) | CPT/HCPCS: 93306; 93356 ==

== ENCOUNTER → 2024-11-26 | Outpatient (CLI) | payer MEDICARE, OTHER, SELFPAY ==
--- NOTE | 2024-11-26 17:48 | STRESSREP ---
Stress Test Report Pharmacologic myocardial perfusion stress test. 69-year-old lady with a history of chest pain and cardiomyopathy Resting EKG demonstrates normal sinus rhythm with a rate of 68 bpm. Resting blood pressure is 178/98 mmHg. 0.4 mg of regadenoson was infused per usual protocol followed by rapid intravenous saline flush injection. Continuous EKG monitoring was performed. The maximum heart rate was 104 bpm which was 69% of max impacted heart rate the maximum workload was 1 metabolic equivalent. At rest there were no ST or T wave changes noted to suggest ischemia and at peak infusion nonspecific ST changes were noted which did not meet the criteria for ischemia. No clinical angina is noted. The final blood pressure was 151/91 mmHg. Myocardial perfusion protocol. 14.3 mCi of technetium 99m sestamibi was injected at rest. 0.4 mg of regadenoson was infused per usual protocol. At peak infusion 44.5 mCi of technetium 99m sestamibi was injected stress images were obtained stress and rest images were reconstructed and compared in the short axis vertical long and horizontal long axis. Gated images were also obtained. Perfusion SPECT analysis: Review of the stress images demonstrate normal uptake of tracer noted in all areas of the myocardium except for reduction of perfusion in the apex. This appears to be under stress and resting images to a similar extent. No reversibility is noted suggest ischemia but a prior apical infarct cannot be completely excluded. Gated SPECT analysis: The gated ejection fraction is 41%. Conclusion: Normal pharmacologic myocardial perfusion stress test. Mildly reduced ejection fraction. Previous apical infarct cannot be excluded
== END | disposition home or self-care (01) ==
LOC: CVS 06:45
PROVIDERS: PCP Registered Nurse; Referring Provider Physician Assistant Medical; Visit Provider Physician Assistant Medical
DX: I42.9 Cardiomyopathy, unspecified (principal); R93.1 Abnormal findings on diagnostic imaging of heart and coronary circulation; R94.31 Abnormal electrocardiogram [ECG] [EKG]
CPT/HCPCS: 78452; 93017; A9500; A4216; J2785

== ENCOUNTER → 2025-05-13 | Outpatient (CLI) | payer MEDICARE, OTHER, SELFPAY ==
--- NOTE | 2025-05-13 10:28 | ECHOD_ITS ---
Reason For Study Reason For Study: SHORTNESS OF BREATH Procedure This was a 2D Doppler, Color Flow transthoracic echocardiogram. The study was technically difficult. Unable to do strain due to arrhythmia. Exam performed in department. Left Ventricle Normal LV size. Left ventricular systolic function is normal. The left ventricular ejection fraction is 55 %. No regional wall motion abnormalities noted. Right Ventricle Normal RV size. Normal systolic function. Atria Normal left atrium. Normal right atrium. Mitral Valve Normal mitral valve. Tricuspid Valve Normal tricuspid valve. Aortic Valve Trisinus/trileaflet aortic valve. Pulmonic Valve Normal pulmonic valve. Great Vessels Normal aortic root. The pulmonary artery is normal size. Inferior vena cava collapse with respiration. Pericardium/Pleural No pericardial effusion. MMode/2D Measurements & Calculations LVIDd: 5.9 cm IVSd: 0.85 cm LVOT diam: 2.1 cm LVIDs: 3.9 cm LVPWd: 0.85 cm LVOT area: 3.4 cm2 RVDd: 3.7 cm FS: 33.9 % asc Aorta Diam: 3.5 cm LAV(MOD-bp): 34.7 ml LVAd ap4: 26.5 cm2 LAV(MOD-bp) Indexed: 15.9 ml/m2 LVLd ap4: 7.3 cm LAV(MOD-sp2): 39.4 ml EDV(MOD-sp4): 79.7 ml LAV(MOD-sp4): 29.6 ml EDV(sp4-el): 81.3 ml LVAs ap4: 16.7 cm2 LVLs ap4: 6.7 cm ESV(MOD-sp4): 34.4 ml ESV(sp4-el): 35.1 ml EF(MOD-sp4): 56.8 % EF(sp4-el): 56.9 % LVAd ap2: 23.6 cm2 SV(MOD-sp4): 45.3 ml SV(MOD-sp2): 28.1 ml LVLd ap2: 7.3 cm SI(MOD-sp4): 20.8 ml/m2 SI(MOD-sp2): 12.9 ml/m2 EDV(MOD-sp2): 62.9 ml EDV(sp2-el): 64.6 ml LVAs ap2: 16.6 cm2 LVLs ap2: 6.5 cm ESV(MOD-sp2): 34.8 ml ESV(sp2-el): 35.7 ml EF(MOD-sp2): 44.7 % SV(sp4-el): 46.2 ml Ao sinus diam: 3.[address] Junction: 2.6 cm LA dimension(2D): 4.1 cm LA A4 area: 13.6 cm2 RA A4 area: 14.4 cm2 TAPSE: 2.2 cm Time Measurements MV dec time: 0.19 sec Doppler Measurements & Calculations MV E max asaf: 58.8 cm/sec Lat Peak E' Asaf: 10.6 cm/sec Med Peak E' Asaf: 7.2 cm/sec MV A max asaf: 81.2 cm/sec E/E' lat: 5.5 E/E' med: 8.2 MV E/A: 0.72 MV dec slope: 311.7 cm/sec2 Ao V2 max: 141.6 cm/sec LV V1 max: 105.2 cm/sec Ao max P.0 mmHg LV V1 max P.4 mmHg Ao V2 mean: 89.6 cm/sec LV V1 mean P.1 mmHg Ao mean P.8 mmHg LV V1 mean: 86.0 cm/sec Ao V2 VTI: 29.7 cm LV V1 VTI: 21.6 cm AV (velocity ratio): 0.73 SILVA(I,D): 2.5 cm2 SILVA(V,D): 2.5 cm2 SV(LVOT): 72.7 ml PA V2 max: 107.5 cm/sec ECHO/Echo Complete Interpretation Summary Normal LV size. Left ventricular systolic function is normal. The left ventricular ejection fraction is 55 %. Ordering Physician: Alaina Hill Referring Physician: Alaina Hill Performed By: Priscilla Mart RDCS
== END | disposition home or self-care (01) ==
LOC: CVS 10:28
PROVIDERS: PCP Registered Nurse; Referring Provider Physician Assistant Medical; Visit Provider Physician Assistant Medical
DX: R06.02 Shortness of breath (principal)
CPT/HCPCS: 93306

== ENCOUNTER → 2025-10-07 | Outpatient (CLI) | payer MEDICARE, OTHER, SELFPAY | END | disposition home or self-care (01) | LOC: PSN 09:34 | PROVIDERS: PCP Registered Nurse; Referring Provider Physician Assistant Medical; Visit Provider Physician Assistant Medical | DX: I49.3 Ventricular premature depolarization (principal) | CPT/HCPCS: 93225; 93226 ==